=== PATIENT | female | born 1965 | race Caucasian/White ===

== ENCOUNTER → 2016-11-26 | Outpatient (CLI) | payer BC ==
[~2016-11-26] MED LIST: /GLIM4TA PO; ASPI325T PO; ASPI81TA7 PO; AUGM875T27 PO; BIOT1CAP2 PO; CALCTAB68 PO; CLAR10CA3 PO; COMBAER6 IN; FLON0.05; FURO40TA2 PO; GLUC500T PO; INSULANT SC; JANU100T PO; LASI40TA PO; MAGN400C PO; METF1000 PO; MULTCAP PO; POTA20TA PO; TYLE325T5 PO; VITAD1000T PO; VITATAB64 PO; ZOCO20TA PO; [UNRECOGNIZED DRUG - CODE] PO; [UNRECOGNIZED DRUG - OTHER] TOP
[2016-11-26 15:53] LABS: ALBUMIN 3.8 GM/DL (3.2-5.2); ALBUMIN/GLOBULIN RATIO 1.23 (1.00-1.93); ALKALINE PHOSPHATASE 93 U/L (45-117); ALT/SGPT 20 U/L (12-78); ANION GAP 9 MEQ/L (8-16); AST/SGOT 12 U/L (15-37); BILIRUBIN,TOTAL 0.5 MG/DL (0.2-1.0); BLOOD UREA NITROGEN 15 MG/DL (7-18); CARBON DIOXIDE LEVEL 28 MEQ/L (21-32); CHLORIDE LEVEL 106 MEQ/L (98-107); FERRITIN 25 NG/ML (8-252); GLOMERULAR FILTRATION RATE > 60.0 (>51); GLUCOSE, FASTING 85 MG/DL (70-105); PERCENT SATURATION 23.3 % (13.2-37.4); POTASSIUM SERUM 4.1 MEQ/L (3.5-5.1); SODIUM LEVEL 143 MEQ/L (136-145); TOTAL IRON BINDING CAPACITY 412 UG/DL (250-450); TOTAL PROTEIN 6.9 GM/DL (6.4-8.2)
== END ==
LOC: M LAB 14:21
PROVIDERS: ATTEND Family Medicine
DX: R73.01 Impaired fasting glucose (principal); E55.9 Vitamin D deficiency, unspecified; Z98.84 Bariatric surgery status

== ENCOUNTER → 2016-12-02 | Outpatient (CLI) | payer BC ==
--- NOTE | 2016-12-02 13:28 | REP ---
AP and frog-leg views right hip 12/02/2016 Indication: Iliotibial band syndrome, right leg The right hip is unremarkable without fracture or dislocation. Visualized portions of the SI joint are intact. There are multiple phleboliths in the right lower pelvis Impression: right hip without fracture or dislocation. No significant degenerative changes Signed by Jojo Moon MD 12/02/2016 01:19 P
--- NOTE | 2016-12-02 13:28 | REP ---
Clinical: Tendonitis. Technique: Internal rotation, external rotation, and Y view of the right shoulder. Findings: Subtle cortical irregularity to the acromioclavicular joint is appreciated. The glenohumeral joint is intact and normal. No evidence for spurring, osteophytosis, joint space narrowing or periarticular calcifications are appreciated. Impression: Essentially age-related degenerative changes primarily involving the acromioclavicular joint. No overt osteoarthritic degenerative changes noted. Signed by Brent Lindsey MD 12/02/2016 01:20 P
--- NOTE | 2016-12-02 13:30 | REP ---
Clinical: Iliotibial band syndrome. Technique: AP and frog lateral views of the proximal femoral metaphysis to distal femur/ knee excluding the hip. Findings: No acute fracture dislocation. No soft tissue abnormalities or calcifications are appreciated. Age-related changes at the knee joint suggested. Impression: Age-related changes. No overt arthritic degenerative changes noted. Signed by Brent Lindsey MD 12/02/2016 01:21 P
== END ==
LOC: M RAD 12:51
PROVIDERS: ATTEND Family Medicine
DX: M76.31 Iliotibial band syndrome, right leg (principal); M75.81 Other shoulder lesions, right shoulder

== ENCOUNTER → 2016-12-20 | Outpatient (REF) | payer BC | LOC: M SFHCPLAZ 16:53 | PROVIDERS: ATTEND Physician Assistant Medical | DX: J02.9 Acute pharyngitis, unspecified (principal) ==

== ENCOUNTER 2017-02-01 00:55 | Emergency (ER) | payer BC ==
[2017-02-01] MEDS ORDERED: ASPIRIN 81 MG CHEW TABLET PO ONE (01:45)
[2017-02-01 01:52] LABS: BASO # 0.1 K/mm3 (0.0-0.2); BASO % 0.9 % (0.0-1.0); EOS # 0.2 K/mm3 (0.0-0.50); EOS % 2.8 % (0.0-3.0); LARGE UNSTAINED CELL # 0.2 K/mm3 (0.0-0.4); LARGE UNSTAINED CELL % 2.7 % (0.0-4.0); LYMPH # 3.4 K/mm3 (1.5-4.5); LYMPH % 47.9 % (24.0-44.0); MEAN CORPUSCULAR HEMOGLOBIN 29.6 pg (27.0-33.0); MEAN CORPUSCULAR HGB CONC 32.4 g/dl (32.0-36.5); MEAN CORPUSCULAR VOLUME 91.1 fl (80.0-96.0); MONO # 0.4 K/mm3 (0.0-0.8); MONO % 4.8 % (0.0-5.0); NEUTROPHILS % 40.9 % (36.0-66.0); PLATELET COUNT, AUTOMATED 270 k/mm3 (150-450); WHITE BLOOD COUNT 7.2 K/mm3 (4.0-10.0)
[2017-02-01] MEDS: NITROGLYCERIN 0.4 MG SUBL TABLET SL PRN ×2 (01:55→02:08)
[2017-02-01 02:08] VITALS: BP 114/60
[2017-02-01 02:08] LABS: ANION GAP 10 MEQ/L (8-16); BLOOD UREA NITROGEN 15 MG/DL (7-18); CALCIUM LEVEL 8.9 MG/DL (8.5-10.1); CARBON DIOXIDE LEVEL 25 MEQ/L (21-32); CHLORIDE LEVEL 109 MEQ/L (98-107); CREATININE FOR GFR 0.54 MG/DL (0.55-1.02); FREE T4 1.02 NG/DL (0.76-1.46); GLOMERULAR FILTRATION RATE > 60.0 (>51); GLUCOSE, FASTING 118 MG/DL (70-105); POTASSIUM SERUM 3.7 MEQ/L (3.5-5.1); SODIUM LEVEL 144 MEQ/L (136-145)
[2017-02-01 03:29] LABS: MAGNESIUM LEVEL 2.2 MG/DL (1.8-2.4)
[2017-02-01] MEDS ORDERED: ONDANSETRON 4MG/2ML VIAL (J2405) IV ONE (03:45)
[2017-02-01] MEDS ORDERED: MORPHINE 4 MG/ML 1ML SYRINGE IV ONE (03:45)
[2017-02-01] MEDS ORDERED: ISOVUE-370 76% 100ML VIAL (Q9967) As Ordered ONE (04:01)
--- NOTE | 2017-02-01 04:50 | REPUSA ---
History: Pain. Comparison: No prior CTA of the chest available Technique: A CT-pulmonary angiogram was performed. A dose of intravenous contrast was administered. A xial images were displayed, as were sagittal and coronal reconstructions. A 3-D model was also render ed. Findings: No CT evidence of pulmonary embolism is identified. Bilateral basilar atelectatic pulmonary changes. There is no evidence of thoracic aortic aneurysm or dissection. No air space consolidation is identified in the lungs. There is no evidence of pulmonary edema. No pa thologically enlarged hilar or mediastinal lymph nodes are identified. No significant pleural or nicholas cardial fluid collection is seen. There is no evidence of pneumothorax. Impression: No evidence of pulmonary embolism is identified. Bilateral basilar atelectatic pulmonary changes.
[2017-02-01 06:24] VITALS: BP 108/70
--- NOTE | 2017-02-01 08:42 | REP ---
REASON: Chest pain. COMPARISON: 03/02/2015 FINDINGS: The technique utilized in obtaining the radiograph has magnified the cardiac silhouette and accentuated the interstitial markings. The superior mediastinal structures are midline. The cardiac silhouette is unremarkable in size, shape, and position. The diaphragmatic surfaces of the lungs are regular, and the costophrenic angles are clear. The pulmonary mccarthy are clear. The imaged osseous structures are intact. IMPRESSION: There is no acute cardiopulmonary disease. Signed by Mukul Keene DO 02/01/2017 10:05 A
--- NOTE | 2017-02-01 09:13 | ECGEPIP ---
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
--- NOTE | 2017-02-01 09:13 | ECGEPIP ---
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
--- NOTE | 2017-02-01 09:15 | ECGEPIP ---
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
== END 2017-02-01 06:52 | disposition home or self-care (01) ==
LOC: M ED 02:59
DX: R07.89 Other chest pain (principal); R06.02 Shortness of breath; Z82.49 Family history of ischemic heart disease and other diseases of the circulatory system; I45.19 Other right bundle-branch block; Z79.899 Other long term (current) drug therapy; Z87.891 Personal history of nicotine dependence
CPT/HCPCS: 71010; 71275; 80048; 82550; 82553; 83735; 84439; 84443; 85025; 85379; 87804; 93005; 93041; 94760; 96374; 96375; 99285; J2405; Q9967

== ENCOUNTER → 2017-04-29 | Outpatient (REF) | payer BC ==
[2017-04-29 12:46] LABS: FREE T4 1.09 NG/DL (0.76-1.46)
== END ==
LOC: M SFHCPLAZ 07:44
PROVIDERS: ATTEND Family Medicine
DX: E78.2 Mixed hyperlipidemia (principal); R73.01 Impaired fasting glucose; E55.9 Vitamin D deficiency, unspecified

== ENCOUNTER → 2017-05-12 | Outpatient (CLI) | payer BC ==
[2017-05-12 17:30] LABS: ANION GAP 9 MEQ/L (8-16); BLOOD UREA NITROGEN 10 MG/DL (7-18); CALCIUM LEVEL 9.4 MG/DL (8.5-10.1); CARBON DIOXIDE LEVEL 22 MEQ/L (21-32); CHLORIDE LEVEL 108 MEQ/L (98-107); CREATININE FOR GFR 0.56 MG/DL (0.55-1.02); GLOMERULAR FILTRATION RATE > 60.0 (>51); GLUCOSE, FASTING 106 MG/DL (70-105); POTASSIUM SERUM 3.2 MEQ/L (3.5-5.1); SODIUM LEVEL 139 MEQ/L (136-145)
[2017-05-12 18:18] LABS: BASO # 0.1 K/mm3 (0.0-0.2); BASO % 0.9 % (0.0-1.0); EOS # 0.2 K/mm3 (0.0-0.50); EOS % 3.1 % (0.0-3.0); LARGE UNSTAINED CELL # 0.3 K/mm3 (0.0-0.4); LARGE UNSTAINED CELL % 3.2 % (0.0-4.0); LYMPH # 2.1 K/mm3 (1.5-4.5); LYMPH % 26.8 % (24.0-44.0); MEAN CORPUSCULAR HGB CONC 34.1 g/dl (32.0-36.5); MEAN CORPUSCULAR VOLUME 90.9 fl (80.0-96.0); MONO # 0.6 K/mm3 (0.0-0.8); MONO % 7.3 % (0.0-5.0); NEUTROPHILS # 4.6 K/mm3 (1.8-7.7); NEUTROPHILS % 58.7 % (36.0-66.0); PLATELET COUNT, AUTOMATED 276 k/mm3 (150-450); RED CELL DISTRIBUTION WIDTH 12.2 % (11.5-14.5); WHITE BLOOD COUNT 7.8 K/mm3 (4.0-10.0)
== END ==
LOC: M LAB 16:29
PROVIDERS: ATTEND Physician Assistant Medical
DX: A09 Infectious gastroenteritis and colitis, unspecified (principal)

== ENCOUNTER → 2017-07-17 | Outpatient (CLI) | payer BC ==
[~2017-07-17] MED LIST changes: +BIOT50004 PO; +CALCTAB29 PO; +COMBAER6 INH; +DIGO0.25 PO; +FISH1000 PO; +MAGN400T5 PO; +MILKSUS PO; +MULT1TAB10 PO; +TIZA4CAP3 PO; +VITA500T53 PO; +XARE10TA PO; +ZOFR20TA PO; +natural tears OU
--- NOTE | 2017-07-22 18:50 | SLEEPCENT ---
DATE OF PROCEDURE: 07/17/2017 ORDERED BY: Larisa Post Nocturnal polysomnography was performed due to concern for the obstructive sleep apnea syndrome in this patient with a history of excessive somnolence nonrestorative sleep. 7 hours and 54 minutes of data were reviewed. There were 352 minutes of sleep identified. Sleep latency was prolonged at 60.5 minutes. Rapid eye movement (REM) latency was short at 64.5 minutes. Sleep architecture showed fragmentation. Progression was maintained. There were three good REM periods appreciated. Overall sleep efficiency was 75.7%. Patient's EKG showed an underlying sinus rhythm with PACs and episodes of irregularity suggesting intermittent atrial fibrillation. There was an episode during REM sleep which appeared to be flutter. Average heart rate of 60 beats per minute. Patients EEG showed reasonably normal wave forms for wake and sleep. There were 199 respiratory events identified of 10 seconds in duration or greater for an apnea-hypopnea index of 33.9. The events were primarily obstructive, not exclusive to sleep stage or body posture. Arousals from respiratory events occurred 16.5 times per hour. Oxygen desaturations were seen in the low 70's with some activity in the limb leads but arousals from limb events were only 4.3 times per hour and remaining measures of sleep physiology were normal. IMPRESSION: 1. Severe obstructive sleep apnea syndrome (G47.33). Apnea-hypopnea index 33.9. 2. Supraventricular dysrhythmia (atrial fibrillation possibly flutter). RECOMMENDATIONS: Patient should be encouraged to undergo formal sleep evaluation and in laboratory pressure titration. In the interim, alcohol and sedative avoidance should be practiced, and caution exercised during the operation of motor vehicles.
== END ==
LOC: M SLEEP 19:47
PROVIDERS: ATTEND Nurse Practitioner Adult Health
DX: G47.33 Obstructive sleep apnea (adult) (pediatric) (principal); I48.91 Unspecified atrial fibrillation

== ENCOUNTER → 2017-08-14 | Outpatient (CLI) | payer BC ==
--- NOTE | 2017-08-21 09:36 | SLEEPCENT ---
DATE OF PROCEDURE: 08/14/2017 REQUESTING PROVIDER: Larisa Post NP INTERPRETATION: Nocturnal polysomnography was performed for the titration of pressure therapy in this patient with obstructive sleep apnea syndrome, apnea-hypopnea index of 33. For testing, a Respironics Estela View full face mask of small size was used, 4 cm of water pressure were applied to the circuit and the lights were extinguished. 8 hours and 7 minutes of data were reviewed. There were 344 minutes of sleep identified. Sleep latency was mildly prolonged at 65 minutes. Rapid eye movement (REM) latency was prolonged at 162 minutes. Sleep architecture improved with optimal application of pressure therapy. Overall sleep efficiency was 72%. The patient's electrocardiogram (EKG) showed a sinus rhythm with an average heart rate of 44 beats per minute. Rate variability was seen surrounding respiratory events. Rate ranged 36 to 70. Electroencephalogram (EEG) showed fairly normal waveforms for awake and sleep. Respiratory events were found best palliated with a CPAP to a pressure of +10. CPAP tolerance was good. Some limb activity was noted, more so than on the diagnostic night. Limb movement arousal index was 14.6. IMPRESSION: 1. Obstructive sleep apnea syndrome (G47.33). RECOMMENDATIONS: Nightly use of pressure therapy at 10 cm of water.
== END ==
LOC: M SLEEP 19:33
PROVIDERS: ATTEND Nurse Practitioner Adult Health
DX: G47.33 Obstructive sleep apnea (adult) (pediatric) (principal)

== ENCOUNTER → 2017-08-20 | Outpatient (CLI) | payer BC ==
[2017-08-20 10:55] LABS: BASO % 0.4 % (0.0-1.0); EOS % 0.1 % (0.0-3.0); IMMATURE GRANULOCYTE % 0.3 % (0-0); LYMPH # 2.1 10^3/uL (1.5-4.5); LYMPH % 19.8 % (24.0-44.0); MEAN CORPUSCULAR HEMOGLOBIN 28.9 pg (27.0-33.0); MEAN CORPUSCULAR HGB CONC 32.1 g/dl (32.0-36.5); MONO # 0.5 10^3/uL (0.0-0.8); MONO % 4.4 % (0.0-5.0); PLATELET COUNT, AUTOMATED 306 10^3/uL (150-450); RED CELL DISTRIBUTION WIDTH 12.4 % (11.5-14.5); WHITE BLOOD COUNT 10.7 10^3/uL (4.0-10.0)
[2017-08-20 11:28] LABS: ALBUMIN 3.7 GM/DL (3.2-5.2); ALBUMIN/GLOBULIN RATIO 1.03 (1.00-1.93); ALKALINE PHOSPHATASE 114 U/L (45-117); ALT/SGPT 28 U/L (12-78); ANION GAP 7 MEQ/L (8-16); AST/SGOT 8 U/L (15-37); BILIRUBIN,TOTAL 0.4 MG/DL (0.2-1.0); BLOOD UREA NITROGEN 10 MG/DL (7-18); CALCIUM LEVEL 9.6 MG/DL (8.5-10.1); CARBON DIOXIDE LEVEL 26 MEQ/L (21-32); CHLORIDE LEVEL 105 MEQ/L (98-107); CREATININE FOR GFR 0.55 MG/DL (0.55-1.02); FERRITIN 30 NG/ML (8-252); GLOMERULAR FILTRATION RATE > 60.0 (>51); GLUCOSE, FASTING 179 MG/DL (70-105); MAGNESIUM LEVEL 2.3 MG/DL (1.8-2.4); PHOSPHORUS LEVEL 3.3 MG/DL (2.5-4.9); POTASSIUM SERUM 4.3 MEQ/L (3.5-5.1); SODIUM LEVEL 138 MEQ/L (136-145); TOTAL PROTEIN 7.3 GM/DL (6.4-8.2)
[2017-08-20 11:30] LABS: VITAMIN B12 LEVEL 901 PG/ML (247-911)
[2017-08-22 10:38] LABS: PRETREATED FOLATE FOR RBCFOL 11.6 NG/ML
== END ==
LOC: M LAB 10:06
PROVIDERS: ATTEND Surgery
DX: K91.2 Postsurgical malabsorption, not elsewhere classified (principal)

== ENCOUNTER 2017-08-22 09:51 | Outpatient (CLI) | payer BC ==
[~2017-08-22] VITALS: Ht 154.9 cm; Wt 76.2 kg
[2017-08-22] MEDS ORDERED: NS 1,000 ML IV ONE (10:00)
[2017-08-22] MEDS ORDERED: PROPOFOL 200 MG/20 ML VIAL As Ordered ONE ×2 (12:22→12:32)
--- NOTE | 2017-08-22 12:47 | ROOR ---
Patient Name: Cordelia Pino Procedure Date: 08/22/2017 12:18 PM Date of : 1965 Age: 52 Room: [facility] Gender: Female Note Status: Finalized Procedure: Colonoscopy Indications: High risk colon cancer surveillance: Personal history of adenoma with high grade dysplasia, Last colonoscopy: June 2016 Providers: Gigi MIJARES MD Referring MD: Chaz Ruiz MD Requesting Provider: Medicines: Monitored Anesthesia Care Complications: No immediate complications. Procedure: Pre-Anesthesia Assessment: - The heart rate, respiratory rate, oxygen saturations, blood pressure, adequacy of pulmonary ventilation, and response to care were monitored throughout the procedure. The Colonoscope was introduced through the anus and advanced to the cecum, identified by appendiceal orifice and ileocecal valve. The colonoscopy was performed without difficulty. The patient tolerated the procedure well. The quality of the bowel preparation was good. Findings: The perianal and digital rectal examinations were normal. A 5 mm polyp was found in the distal ascending colon. The polyp was sessile. The polyp was removed with a cold snare. Resection and retrieval were complete. Area was tattooed with an injection of Whitley ink. The exam was otherwise without abnormality on direct and retroflexion views. Impression: - One 5 mm polyp in the distal ascending colon, removed with a cold snare. Resected and retrieved. Tattooed. - The examination was otherwise normal on direct and retroflexion views. Recommendation: - Repeat colonoscopy date to be determined after pending pathology results are reviewed. - Telephone endoscopist for pathology results in 2 weeks. Gigi Mijares MD Gigi MIJARES MD 08/22/2017 12:47:27 PM This report has been signed electronically. Number of Addenda: 0 Note Initiated On: 08/22/2017 12:18 PM Estimated Blood Loss: Estimated blood loss: none.
[2017-08-22 13:17] VITALS: BP 117/65
== END 2017-08-22 13:39 | disposition home or self-care (01) ==
LOC: M OPP 09:51
PROVIDERS: ATTEND Internal Medicine Gastroenterology
DX: Z12.11 Encounter for screening for malignant neoplasm of colon (principal); Z86.010 Personal history of colon polyps; D12.2 Benign neoplasm of ascending colon; R00.8 Other abnormalities of heart beat; R00.2 Palpitations; R07.2 Precordial pain; I34.0 Nonrheumatic mitral (valve) insufficiency; I48.3 Typical atrial flutter; I51.7 Cardiomegaly; J44.9 Chronic obstructive pulmonary disease, unspecified; E11.9 Type 2 diabetes mellitus without complications; R55 Syncope and collapse; G47.8 Other sleep disorders; G47.30 Sleep apnea, unspecified; R06.83 Snoring; Z98.84 Bariatric surgery status; Z87.891 Personal history of nicotine dependence; Z79.899 Other long term (current) drug therapy; Z80.7 Family history of other malignant neoplasms of lymphoid, hematopoietic and related tissues

== ENCOUNTER → 2017-12-23 | Outpatient (REF) | payer BC ==
[2017-12-23 12:33] LABS: AMORPHOUS SEDIMENT SMALL (NEGATIVE); APPEARANCE, URINE CLEAR (CLEAR); BACTERIA, URINE AUTO NEGATIVE (NEGATIVE); BILIRUBIN, URINE AUTO NEGATIVE (NEGATIVE); BLOOD, URINE BLOOD NEGATIVE (NEGATIVE); COLOR, URINE YELLOW (YELLOW); GLUCOSE, URINE (UA) AUTO 1+ mg/dL (NEGATIVE); KETONE, URINE AUTO NEGATIVE (NEGATIVE); LEUKOCYTE ESTERASE, URINE AUTO NEGATIVE (NEGATIVE); MUCUS, URINE SMALL (NEGATIVE); NITRITE, URINE AUTO NEGATIVE (NEGATIVE); PROTEIN, URINE AUTO NEGATIVE (NEGATIVE); RBC, URINE AUTO 0 /HPF (0-3); SPECIFIC GRAVITY URINE AUTO 1.027 (1.002-1.035); SQUAMOUS EPITHELIAL CELL UR AU 0 /HPF (0-6); WBC, URINE AUTO 2 /HPF (0-3)
[2017-12-23 12:47] LABS: C REACTIVE PROTEIN QUANTITATIV < 0.30 MG/DL (0.00-0.30); CHOLESTEROL LEVEL 158 MG/DL (<200); CHOLESTEROL RISK RATIO 3.038 (<5); CPK CREATINE PHOSPHOKINASE 63 U/L (26-192); FERRITIN 11 NG/ML (8-252); FREE T4 1.04 NG/DL (0.76-1.46); HDL CHOLESTEROL 52 MG/DL (>40); IRON (FE) 59 UG/DL (50-170); LDL CHOLESTEROL 82.4 MG/DL (<100); NON-HDL-C 106 MG/DL; PERCENT SATURATION 14.7 % (13.2-45.0); TOTAL IRON BINDING CAPACITY 401 UG/DL (250-450); TRIGLYCERIDES LEVEL 118 MG/DL (<150)
[2017-12-23 12:58] LABS: ESTIMATED AVERAGE GLUCOSE 169 MG/DL (60-110); HEMOGLOBIN A1c 7.5 %
[2017-12-23 13:22] LABS: MALB URINE SIEMENS 39.4 MG/L; MAU/CREAT RATIO 22.6 MCG/MG (0.0-30.0)
== END ==
LOC: M SFHCPLAZ 08:24
DX: E11.8 Type 2 diabetes mellitus with unspecified complications (principal); Z98.84 Bariatric surgery status

== ENCOUNTER → 2018-04-23 | Outpatient (REF) | payer BC ==
[2018-04-23 15:08] LABS: BASO # 0.1 10^3/uL (0.0-0.2); EOS # 0.1 10^3/uL (0.0-0.50); EOS % 2.1 % (0.0-3.0); HEMATOCRIT 36.8 % (36.0-47.0); HEMOGLOBIN 11.6 g/dl (12.0-15.5); IMMATURE GRANULOCYTE % 0.2 % (0-3.0); LYMPH # 2.4 10^3/uL (1.5-4.5); LYMPH % 45.9 % (24.0-44.0); MEAN CORPUSCULAR HEMOGLOBIN 28.7 pg (27.0-33.0); MEAN CORPUSCULAR HGB CONC 31.5 g/dl (32.0-36.5); MEAN CORPUSCULAR VOLUME 91.1 fl (80.0-96.0); MONO # 0.4 10^3/uL (0.0-0.8); MONO % 6.8 % (0.0-5.0); NEUTROPHILS # 2.3 10^3/uL (1.8-7.7); PLATELET COUNT, AUTOMATED 241 10^3/uL (150-450); RED BLOOD COUNT 4.04 10^6/uL (4.00-5.40); RED CELL DISTRIBUTION WIDTH 13.7 % (11.5-14.5); RETIC HEMOGLOBIN EQUIVALENT 35.2 pg (24-36); RETICULOCYTE # 42.4 10^9/L (17-77); RETICULOCYTE % 1.1 % (0.5-1.5); WHITE BLOOD COUNT 5.1 10^3/uL (4.0-10.0)
[2018-04-23 15:30] LABS: ALBUMIN 3.6 GM/DL (3.2-5.2); ALBUMIN/GLOBULIN RATIO 1.13 (1.00-1.93); ALKALINE PHOSPHATASE 93 U/L (45-117); ALT/SGPT 23 U/L (12-78); ANION GAP 6 MEQ/L (8-16); AST/SGOT 14 U/L (7-37); BILIRUBIN,TOTAL 0.6 MG/DL (0.2-1.0); BLOOD UREA NITROGEN 19 MG/DL (7-18); CARBON DIOXIDE LEVEL 29 MEQ/L (21-32); CHLORIDE LEVEL 109 MEQ/L (98-107); GLOMERULAR FILTRATION RATE > 60.0 (>51); GLUCOSE, FASTING 98 MG/DL (70-100); POTASSIUM SERUM 3.8 MEQ/L (3.5-5.1); SODIUM LEVEL 144 MEQ/L (136-145); TOTAL PROTEIN 6.8 GM/DL (6.4-8.2)
[2018-04-23 15:35] LABS: TOTAL 25(OH) VITAMIN D 18.4 NG/ML (30.0-100.0)
[2018-04-23 15:39] LABS: ESTIMATED AVERAGE GLUCOSE 148 MG/DL (60-110); HEMOGLOBIN A1c 6.8 %
[2018-04-23 16:16] LABS: PTH INTACT 60.5 PG/ML (18.5-88.0)
[2018-04-23 16:17] LABS: VITAMIN B12 LEVEL 380 PG/ML (247-911)
[2018-04-24 14:17] LABS: INSULIN LEVEL 8.1 uIU/mL (2.6-24.9)
== END ==
LOC: M SFHCPLAZ 08:02
DX: E55.9 Vitamin D deficiency, unspecified (principal); Z98.84 Bariatric surgery status; E11.8 Type 2 diabetes mellitus with unspecified complications
CPT/HCPCS: 83525

== ENCOUNTER → 2018-08-19 | Outpatient (CLI) | payer BC ==
[2018-08-19 11:37] LABS: THYROXINE (T4) 7.2 UG/DL (4.5-12.0)
== END ==
LOC: M LAB 10:01
DX: E07.9 Disorder of thyroid, unspecified (principal)
CPT/HCPCS: 84443

== ENCOUNTER → 2018-08-19 | Outpatient (CLI) | payer BC ==
[2018-08-19 10:52] LABS: BASO # 0.1 10^3/uL (0.0-0.2); BASO % 1.2 % (0.0-1.0); EOS # 0.1 10^3/uL (0.0-0.50); HEMATOCRIT 37.9 % (36.0-47.0); HEMOGLOBIN 12.3 g/dl (12.0-15.5); IMMATURE GRANULOCYTE % 0.2 % (0-3.0); LYMPH # 2.3 10^3/uL (1.5-4.5); LYMPH % 37.4 % (24.0-44.0); MEAN CORPUSCULAR HEMOGLOBIN 29.6 pg (27.0-33.0); MEAN CORPUSCULAR HGB CONC 32.5 g/dl (32.0-36.5); MEAN CORPUSCULAR VOLUME 91.1 fl (80.0-96.0); MONO # 0.4 10^3/uL (0.0-0.8); MONO % 6.1 % (0.0-5.0); NEUTROPHILS # 3.2 10^3/uL (1.8-7.7); NEUTROPHILS % 53.1 % (36.0-66.0); PLATELET COUNT, AUTOMATED 257 10^3/uL (150-450); RED BLOOD COUNT 4.16 10^6/uL (4.00-5.40); RED CELL DISTRIBUTION WIDTH 12.6 % (11.5-14.5); WHITE BLOOD COUNT 6.1 10^3/uL (4.0-10.0)
[2018-08-19 10:55] LABS: HEMATOCRIT 37.9 % (36.0-47.0)
[2018-08-19 11:43] LABS: ALBUMIN 3.7 GM/DL (3.2-5.2); ALBUMIN/GLOBULIN RATIO 1.12 (1.00-1.93); ALKALINE PHOSPHATASE 108 U/L (45-117); ALT/SGPT 24 U/L (12-78); ANION GAP 9 MEQ/L (8-16); AST/SGOT 10 U/L (7-37); BILIRUBIN,TOTAL 0.4 MG/DL (0.2-1.0); BLOOD UREA NITROGEN 10 MG/DL (7-18); CALCIUM LEVEL 9.6 MG/DL (8.5-10.1); CARBON DIOXIDE LEVEL 28 MEQ/L (21-32); CHLORIDE LEVEL 106 MEQ/L (98-107); CREATININE FOR GFR 0.58 MG/DL (0.55-1.30); FERRITIN 10 NG/ML (8-252); GLOMERULAR FILTRATION RATE > 60.0 (>51); GLUCOSE, FASTING 109 MG/DL (70-100); IRON (FE) 61 UG/DL (50-170); MAGNESIUM LEVEL 2.2 MG/DL (1.8-2.4); PHOSPHORUS LEVEL 3.6 MG/DL (2.5-4.9); POTASSIUM SERUM 4.6 MEQ/L (3.5-5.1); SODIUM LEVEL 143 MEQ/L (136-145); TOTAL IRON BINDING CAPACITY 435 UG/DL (250-450)
[2018-08-19 12:49] LABS: ESTIMATED AVERAGE GLUCOSE 128 MG/DL (60-110); HEMOGLOBIN A1c 6.1 %
[2018-08-19 12:50] LABS: TOTAL 25(OH) VITAMIN D 39.9 NG/ML (30.0-100.0)
[2018-08-21 11:05] LABS: PRETREATED FOLATE FOR RBCFOL 9.6 NG/ML; RBC FOLATE 531.9 NG/ML (280-791)
== END ==
LOC: M LAB 10:05
DX: K91.2 Postsurgical malabsorption, not elsewhere classified (principal); Z98.84 Bariatric surgery status; E55.9 Vitamin D deficiency, unspecified
CPT/HCPCS: 83550

== ENCOUNTER → 2018-08-24 | Outpatient (REF) | payer BC ==
[2018-08-24 12:39] LABS: RETIC HEMOGLOBIN EQUIVALENT 34.3 pg (24-36); RETICULOCYTE # 55.2 10^9/L (17-77); RETICULOCYTE % 1.4 % (0.5-1.5)
[2018-08-24 13:03] LABS: C REACTIVE PROTEIN QUANTITATIV < 0.30 MG/DL (0.00-0.30); CHOLESTEROL LEVEL 179 MG/DL (<200); CHOLESTEROL RISK RATIO 3.808 (<5); CPK CREATINE PHOSPHOKINASE 53 U/L (26-192); HDL CHOLESTEROL 47 MG/DL (>40); LDL CHOLESTEROL 112 MG/DL (<100); NON-HDL-C 132 MG/DL; TRIGLYCERIDES LEVEL 100 MG/DL (<150)
== END ==
LOC: M SFHCPLAZ 08:25
DX: E78.2 Mixed hyperlipidemia (principal); E55.9 Vitamin D deficiency, unspecified; E53.8 Deficiency of other specified B group vitamins
CPT/HCPCS: 82550

== ENCOUNTER 2018-09-27 15:32 | Emergency (ER) | payer BC ==
[2018-09-27 16:16] LABS: BASO # 0.1 10^3/uL (0.0-0.2); BASO % 0.6 % (0.0-1.0); EOS # 0.1 10^3/uL (0.0-0.50); EOS % 1.5 % (0.0-3.0); HEMOGLOBIN 12.5 g/dl (12.0-15.5); IMMATURE GRANULOCYTE % 0.1 % (0-3.0); LYMPH # 2.4 10^3/uL (1.5-4.5); LYMPH % 30.7 % (24.0-44.0); MEAN CORPUSCULAR HEMOGLOBIN 29.2 pg (27.0-33.0); MEAN CORPUSCULAR HGB CONC 32.1 g/dl (32.0-36.5); MEAN CORPUSCULAR VOLUME 91.1 fl (80.0-96.0); MONO # 0.5 10^3/uL (0.0-0.8); NEUTROPHILS # 4.8 10^3/uL (1.8-7.7); NEUTROPHILS % 61.1 % (36.0-66.0); PLATELET COUNT, AUTOMATED 265 10^3/uL (150-450); RED BLOOD COUNT 4.28 10^6/uL (4.00-5.40); RED CELL DISTRIBUTION WIDTH 12.7 % (11.5-14.5); WHITE BLOOD COUNT 7.8 10^3/uL (4.0-10.0)
[2018-09-27 16:26] LABS: INR 0.98; PROTHROMBIN TIME 13.1 SECONDS (12.1-14.4)
[2018-09-27 16:34] LABS: PARTIAL THROMBOPLASTIN TIME 28.9 SECONDS (25.4-37.6)
[2018-09-27 16:44] LABS: ALBUMIN 3.8 GM/DL (3.2-5.2); ALBUMIN/GLOBULIN RATIO 1.09 (1.00-1.93); ALKALINE PHOSPHATASE 112 U/L (45-117); ALT/SGPT 35 U/L (12-78); ANION GAP 7 MEQ/L (8-16); AST/SGOT 17 U/L (7-37); BILIRUBIN,DIRECT 0.2 MG/DL (0.0-0.2); BILIRUBIN,TOTAL 0.5 MG/DL (0.2-1.0); BLOOD UREA NITROGEN 11 MG/DL (7-18); CALCIUM LEVEL 9.2 MG/DL (8.5-10.1); CARBON DIOXIDE LEVEL 28 MEQ/L (21-32); CHLORIDE LEVEL 107 MEQ/L (98-107); GLOMERULAR FILTRATION RATE > 60.0 (>51); GLUCOSE, FASTING 202 MG/DL (70-100); POTASSIUM SERUM 3.6 MEQ/L (3.5-5.1); SODIUM LEVEL 142 MEQ/L (136-145); TOTAL PROTEIN 7.3 GM/DL (6.4-8.2)
[2018-09-27] MEDS: MORPHINE 4 MG/ML 1ML VIAL/SYRINGE (J2270) IV (16:45)
[2018-09-27] MEDS: ONDANSETRON 4MG/2ML VIAL (J2405) IV (16:45)
[2018-09-27] MEDS: NS 1,000 ML IV (16:47)
[2018-09-27 18:11] LABS: KETONE, URINE AUTO RFX NEGATIVE (NEGATIVE); MUCUS, URINE RFX SMALL (NEGATIVE); NITRITE, URINE AUTO RFX NEGATIVE (NEGATIVE); RBC, URINE AUTO RFX TNTC /HPF (0-3); SPECIFIC GRAVITY UR AUTO RFX 1.018 (1.002-1.035); SQUAM EPITHELIAL CELL UR AURFX 0 /HPF (0-6)
[2018-09-27 18:16] LABS: LEUKOCYTE ESTERASE UR AUTO RFX 1+ (NEGATIVE); WBC, URINE AUTO RFX 61 /HPF (0-3)
== END 2018-09-27 19:57 | disposition home or self-care (01) ==
LOC: M ED 15:32
DX: N20.1 Calculus of ureter (principal); R31.9 Hematuria, unspecified; D68.32 Hemorrhagic disorder due to extrinsic circulating anticoagulants; I10 Essential (primary) hypertension; J44.9 Chronic obstructive pulmonary disease, unspecified; Z98.84 Bariatric surgery status; Z87.891 Personal history of nicotine dependence; Z79.899 Other long term (current) drug therapy; Z79.01 Long term (current) use of anticoagulants
CPT/HCPCS: J2270

== ENCOUNTER → 2018-09-29 | Outpatient (CLI) | payer BC ==
[2018-09-29 18:45] LABS: IONIZED CALCIUM 4.8 MG/DL (4.5-5.3)
[2018-09-29 19:08] LABS: URIC ACID 5.1 MG/DL (2.6-6.0)
== END ==
LOC: M SMT 14:10
DX: N20.0 Calculus of kidney (principal); R31.29 Other microscopic hematuria
CPT/HCPCS: 84550

== ENCOUNTER → 2018-09-29 | Outpatient (REF) | payer BC | LOC: M SMT 17:29 | DX: R31.0 Gross hematuria (principal) | CPT/HCPCS: 87086 ==

== ENCOUNTER → 2018-09-30 | Outpatient (CLI) | payer BC | LOC: M RAD 06:31 | DX: E11.8 Type 2 diabetes mellitus with unspecified complications (principal); N13.30 Unspecified hydronephrosis | CPT/HCPCS: 76775 ==

== ENCOUNTER → 2018-10-09 | Outpatient (CLI) | payer BC ==
[~2018-10-09] MED LIST changes: -/GLIM4TA PO; -ASPI325T PO; -ASPI81TA7 PO; -AUGM875T27 PO; -BIOT1CAP2 PO; -BIOT50004 PO; -CALCTAB29 PO; -CALCTAB68 PO; -CLAR10CA3 PO; -COMBAER6 IN; -COMBAER6 INH; -DIGO0.25 PO; -FISH1000 PO; -FLON0.05; -FURO40TA2 PO; -GLUC500T PO; -INSULANT SC; +ISOVUE-370 76% 100ML VIAL (Q9967) As Ordered; -JANU100T PO; -LASI40TA PO; -MAGN400C PO; -MAGN400T5 PO; -METF1000 PO; -MILKSUS PO; -MULT1TAB10 PO; -MULTCAP PO; -POTA20TA PO; -TIZA4CAP3 PO; -TYLE325T5 PO; -VITA500T53 PO; -VITAD1000T PO; -VITATAB64 PO; -XARE10TA PO; -ZOCO20TA PO; -ZOFR20TA PO; -[UNRECOGNIZED DRUG - CODE] PO; -[UNRECOGNIZED DRUG - OTHER] TOP; -natural tears OU
== END ==
LOC: M RAD 10:53
DX: R31.0 Gross hematuria (principal); N20.0 Calculus of kidney
CPT/HCPCS: Q9967

== ENCOUNTER → 2019-01-15 | Outpatient (REF) | payer BC ==
[~2019-01-15] MED LIST changes: +/GLIM4TA PO; +ASPI325T PO; +ASPI81TA7 PO; +AUGM875T27 PO; +BIOT1CAP2 PO; +BIOT50004 PO; +CALCTAB29 PO; +CALCTAB68 PO; +CLAR10CA3 PO; +COMBAER6 IN; +COMBAER6 INH; +DIGO0.25 PO; +FISH1000 PO; +FLON0.05; +FURO40TA2 PO; +GLUC500T PO; +INSULANT SC; -ISOVUE-370 76% 100ML VIAL (Q9967) As Ordered; +JANU100T PO; +LASI40TA PO; +MAGN400C PO; +MAGN400T5 PO; +METF1000 PO; +MILK120011 PO; +MULT1TAB10 PO; +MULTCAP PO; +NORCOTAB PO; +POTA20TA PO; +TIZA4CAP PO; +TYLE325T5 PO; +VITA500T53 PO; +VITAD1000T PO; +VITATAB64 PO; +XARE10TA PO; +ZOCO20TA PO; +ZOFR4TAB14 PO; +ZOFR4TAB16 PO; +[UNRECOGNIZED DRUG - CODE] PO; +[UNRECOGNIZED DRUG - OTHER] TOP; +natural tears OU
[2019-01-15 12:10] LABS: BASO # 0.1 10^3/uL (0.0-0.2); BASO % 1.1 % (0.0-1.0); EOS # 0.1 10^3/uL (0.0-0.50); EOS % 1.6 % (0.0-3.0); HEMATOCRIT 39.3 % (36.0-47.0); HEMOGLOBIN 12.5 g/dl (12.0-15.5); LYMPH # 2.4 10^3/uL (1.5-4.5); LYMPH % 37.7 % (24.0-44.0); MEAN CORPUSCULAR HEMOGLOBIN 28.3 pg (27.0-33.0); MEAN CORPUSCULAR HGB CONC 31.8 g/dl (32.0-36.5); MEAN CORPUSCULAR VOLUME 89.1 fl (80.0-96.0); MONO # 0.4 10^3/uL (0.0-0.8); MONO % 6.2 % (0.0-5.0); NEUTROPHILS # 3.4 10^3/uL (1.8-7.7); NEUTROPHILS % 53.2 % (36.0-66.0); PLATELET COUNT, AUTOMATED 260 10^3/uL (150-450); RED BLOOD COUNT 4.41 10^6/uL (4.00-5.40); WHITE BLOOD COUNT 6.5 10^3/uL (4.0-10.0)
[2019-01-15 12:43] LABS: ALBUMIN 3.7 GM/DL (3.2-5.2); ALT/SGPT 27 U/L (12-78); BILIRUBIN,TOTAL 0.6 MG/DL (0.2-1.0); BLOOD UREA NITROGEN 8 MG/DL (7-18); C REACTIVE PROTEIN QUANTITATIV < 0.30 MG/DL (0.00-0.30); CALCIUM LEVEL 8.7 MG/DL (8.5-10.1); CARBON DIOXIDE LEVEL 27 MEQ/L (21-32); CHLORIDE LEVEL 108 MEQ/L (98-107); CHOLESTEROL LEVEL 119 MG/DL (<200); CPK CREATINE PHOSPHOKINASE 66 U/L (26-192); CREATININE FOR GFR 0.49 MG/DL (0.55-1.30); GLOMERULAR FILTRATION RATE > 60.0 (>51); GLUCOSE, FASTING 86 MG/DL (70-100); HDL CHOLESTEROL 61 MG/DL (>40); LDL CHOLESTEROL 45 MG/DL (<100); NON-HDL-C 58 MG/DL; POTASSIUM SERUM 3.8 MEQ/L (3.5-5.1); SODIUM LEVEL 142 MEQ/L (136-145); TRIGLYCERIDES LEVEL 66 MG/DL (<150)
[2019-01-15 13:04] LABS: HEMOGLOBIN A1c 7.5 %
[2019-01-15 16:01] LABS: PTH INTACT 73.4 PG/ML (18.5-88.0); TOTAL 25(OH) VITAMIN D 57.3 NG/ML (30.0-100.0)
[2019-01-19 12:24] LABS: ALBUMIN 4.01 GM/DL (3.29-5.55); ALBUMIN % 57.3 % (55.8-66.1); ALPHA-1-GLOBULIN % 4.4 % (2.9-4.9); ALPHA-1-GLOBULINS 0.31 GM/DL (0.17-0.41); ALPHA-2-GLOBULINS 0.83 GM/DL (0.42-0.99); ALPHA-2-GLOBULINS % 11.8 % (7.1-11.8); BETA-1-GLOBULINS 0.53 GM/DL (0.28-0.60); BETA-1-GLOBULINS % 7.5 % (4.7-7.2); BETA-2-GLOBULINS 0.36 GM/DL (0.19-0.55); BETA-2-GLOBULINS % 5.1 % (3.2-6.5); GAMMA GLOBULIN % 13.9 % (11.1-18.8); GAMMA GLOBULINS 0.97 GM/DL (0.65-1.58)
== END ==
LOC: M SFHCPLAZ 10:01
PROVIDERS: ATTEND Family Medicine
DX: E53.8 Deficiency of other specified B group vitamins (principal); E78.2 Mixed hyperlipidemia; E55.9 Vitamin D deficiency, unspecified; E11.8 Type 2 diabetes mellitus with unspecified complications

== ENCOUNTER → 2019-03-02 | Outpatient (REF) | payer BC ==
[~2019-03-02] MED LIST changes: -/GLIM4TA PO; +AMAR1TAB6 PO; +ASPI-1 PO; -ASPI325T PO; +HYDR-3715 PO; -NORCOTAB PO; +VITA500T17 PO; -VITA500T53 PO; +[UNRECOGNIZED DRUG - CODE] TOP; -[UNRECOGNIZED DRUG - OTHER] TOP
[2019-03-02 14:02] LABS: BASO # 0.1 10^3/uL (0.0-0.2); BASO % 1.3 % (0.0-1.0); EOS # 0.1 10^3/uL (0.0-0.50); EOS % 2.2 % (0.0-3.0); HEMATOCRIT 37.8 % (36.0-47.0); HEMOGLOBIN 11.7 g/dl (12.0-15.5); LYMPH # 2.5 10^3/uL (1.5-4.5); LYMPH % 44.3 % (24.0-44.0); MEAN CORPUSCULAR HEMOGLOBIN 28.4 pg (27.0-33.0); MEAN CORPUSCULAR VOLUME 91.7 fl (80.0-96.0); MONO # 0.4 10^3/uL (0.0-0.8); MONO % 7.6 % (0.0-5.0); NEUTROPHILS # 2.5 10^3/uL (1.8-7.7); NEUTROPHILS % 44.4 % (36.0-66.0); PLATELET COUNT, AUTOMATED 233 10^3/uL (150-450); RED BLOOD COUNT 4.12 10^6/uL (4.00-5.40); WHITE BLOOD COUNT 5.5 10^3/uL (4.0-10.0)
[2019-03-02 14:13] LABS: INR 1.12; PROTHROMBIN TIME 14.6 SECONDS (12.1-14.4)
[2019-03-02 14:14] LABS: PARTIAL THROMBOPLASTIN TIME 32.4 SECONDS (25.4-37.6)
[2019-03-02 14:32] LABS: ALBUMIN 3.7 GM/DL (3.2-5.2); ALT/SGPT 25 U/L (12-78); BILIRUBIN,TOTAL 0.6 MG/DL (0.2-1.0); BLOOD UREA NITROGEN 8 MG/DL (7-18); CARBON DIOXIDE LEVEL 30 MEQ/L (21-32); CHLORIDE LEVEL 108 MEQ/L (98-107); CREATININE FOR GFR 0.49 MG/DL (0.55-1.30); GLOMERULAR FILTRATION RATE > 60.0 (>51); GLUCOSE, FASTING 80 MG/DL (70-100); MAGNESIUM LEVEL 2.2 MG/DL (1.8-2.4); SODIUM LEVEL 142 MEQ/L (136-145); TOTAL PROTEIN 6.6 GM/DL (6.4-8.2)
== END ==
LOC: M SFHCPLAZ 11:19
PROVIDERS: ATTEND Family Medicine
DX: Z01.812 Encounter for preprocedural laboratory examination (principal)

== ENCOUNTER → 2019-04-23 | Outpatient (RCR) | payer OTHER | LOC: M PT 03-29 14:43 | PROVIDERS: ATTEND Orthopaedic Surgery | DX: M77.12 Lateral epicondylitis, left elbow (principal) ==

== ENCOUNTER → 2019-06-02 | Outpatient (REF) | payer BC ==
[2019-06-02 10:06] LABS: APPEARANCE, URINE HAZY (CLEAR); BACTERIA, URINE AUTO NEGATIVE (NEGATIVE); BILIRUBIN, URINE AUTO NEGATIVE (NEGATIVE); BLOOD, URINE BLOOD NEGATIVE (NEGATIVE); COLOR, URINE YELLOW (YELLOW); GLUCOSE, URINE (UA) AUTO 2+ mg/dL (NEGATIVE); KETONE, URINE AUTO NEGATIVE (NEGATIVE); LEUKOCYTE ESTERASE, URINE AUTO TRACE (NEGATIVE); MUCUS, URINE SMALL (NEGATIVE); NITRITE, URINE AUTO NEGATIVE (NEGATIVE); PROTEIN, URINE AUTO NEGATIVE (NEGATIVE); RBC, URINE AUTO 4 /HPF (0-3); SPECIFIC GRAVITY URINE AUTO 1.027 (1.002-1.035); SQUAMOUS EPITHELIAL CELL UR AU 0 /HPF (0-6); WBC, URINE AUTO 2 /HPF (0-3)
[2019-06-02 10:08] LABS: BASO # 0.1 10^3/uL (0.0-0.2); BASO % 0.8 % (0.0-1.0); EOS # 0.1 10^3/uL (0.0-0.50); HEMATOCRIT 37.2 % (36.0-47.0); HEMOGLOBIN 11.6 g/dl (12.0-15.5); LYMPH # 2.4 10^3/uL (1.5-4.5); LYMPH % 40.5 % (24.0-44.0); MEAN CORPUSCULAR HEMOGLOBIN 28.6 pg (27.0-33.0); MEAN CORPUSCULAR HGB CONC 31.2 g/dl (32.0-36.5); MEAN CORPUSCULAR VOLUME 91.6 fl (80.0-96.0); MONO # 0.4 10^3/uL (0.0-0.8); MONO % 7.1 % (0.0-5.0); NEUTROPHILS # 2.9 10^3/uL (1.8-7.7); NEUTROPHILS % 49.4 % (36.0-66.0); PLATELET COUNT, AUTOMATED 247 10^3/uL (150-450); RED BLOOD COUNT 4.06 10^6/uL (4.00-5.40); WHITE BLOOD COUNT 5.9 10^3/uL (4.0-10.0)
[2019-06-02 10:26] LABS: HEMOGLOBIN A1c 6.9 %
[2019-06-02 10:28] LABS: ALBUMIN 3.7 GM/DL (3.2-5.2); ALT/SGPT 24 U/L (12-78); BILIRUBIN,TOTAL 0.5 MG/DL (0.2-1.0); BLOOD UREA NITROGEN 10 MG/DL (7-18); CALCIUM LEVEL 9.2 MG/DL (8.5-10.1); CARBON DIOXIDE LEVEL 29 MEQ/L (21-32); CHLORIDE LEVEL 109 MEQ/L (98-107); CREATININE FOR GFR 0.56 MG/DL (0.55-1.30); GLOMERULAR FILTRATION RATE > 60.0 (>51); GLUCOSE, FASTING 105 MG/DL (70-100); POTASSIUM SERUM 4.4 MEQ/L (3.5-5.1); SODIUM LEVEL 143 MEQ/L (136-145); TOTAL PROTEIN 6.8 GM/DL (6.4-8.2)
[2019-06-02 10:36] LABS: PTH INTACT 79.8 PG/ML (18.5-88.0); TOTAL 25(OH) VITAMIN D 50.4 NG/ML (30.0-100.0); VITAMIN B12 LEVEL 1732 PG/ML (247-911)
[2019-06-02 10:40] LABS: MALB URINE SIEMENS 40.1 MG/L
== END ==
LOC: M SFHCPLAZ 08:23
PROVIDERS: ATTEND Family Medicine
DX: E53.8 Deficiency of other specified B group vitamins (principal); E55.9 Vitamin D deficiency, unspecified; E11.8 Type 2 diabetes mellitus with unspecified complications

== ENCOUNTER → 2019-07-07 | Outpatient (CLI) | payer BC ==
--- NOTE | 2019-07-07 15:57 | REPMRS ---
Patient History The patient states she has not had a clinical breast exam in over a year. Family history of colorectal cancer under age 50 in sister. Digital Woman Screen Mammo: July 07, 2019 - Exam #: [id number] Bilateral CC and MLO view(s) were taken. Technologist: Maddy Armstrong, Technologist Prior study comparison: September 06, 2016, digital woman screen mammo performed at [facility]. May 19, 2015, digital woman screen mammo performed at [facility]. May 13, 2014, bilateral digital mammo screening bilat, performed at [facility]. FINDINGS: The breast tissue is heterogeneously dense. This may lower the sensitivity of mammography. There is a stable grouping of calcifications in the left breast medially. There is a moderate amount of heterogeneously dense fibroglandular tissue which is fairly symmetric. There is no interval development of dominant mass, architectural distortion, or grouped microcalcification typical of malignancy. There has been no change in the appearance of the mammogram from the prior studies. 3-D tomosynthesis shows no additional findings. Assessment: BI-RADS/ACR category 2 mammogram. Benign Findings. Recommendation Routine screening mammogram of both breasts in 1 year (for women over age 40). This patient's Lifetime Breast Cancer RIsk is estimated at 5.5 %. This mammogram was interpreted with the aid of an FDA-approved computer-aided dectection system. Electronically Signed By: Gautam Odom MD 07/07/19 [id number]
--- NOTE | 2019-07-12 09:19 | DEXA ---
AP SPINE L1 - L4 1.067 -1.0 -0.2 LT FEMUR TOTAL 0.860 -1.2 -0.5 LT NECK 0.796 -1.7 -0.7 RT FEMUR TOTAL 0.855 -1.2 -0.6 RT NECK 0.879 -1.1 -0.1 TOTAL BODY TOTAL OTHER COMMENTS: There is low bone density of the spine and hips. The density of the spine has decreased 6.2% since the initial exam on 02/11/2005. The spine density has decreased 3.2% since the most recent exam on 05/19/2015. The density of the left hip has decreased 21.9% since the initial exam on 02/11/2005. The density of the left hip has decreased 14.9% since the most recent exam on 05/19/2015. The density of the right hip has decreased 22.1% since the initial exam on 02/11/2005. The density of the right hip has decreased 17.1% since the most recent exam on 05/19/2015. FOLLOW-UP: Recommendation for the next bone density exam: 2 years. MAURILIO
== END ==
LOC: M WHC 10:58
PROVIDERS: ATTEND Family Medicine
DX: Z12.31 Encounter for screening mammogram for malignant neoplasm of breast (principal); M85.80 Other specified disorders of bone density and structure, unspecified site; Z80.0 Family history of malignant neoplasm of digestive organs

== ENCOUNTER → 2019-08-09 | Outpatient (REF) | payer BC ==
[~2019-08-09] MED LIST changes: +ATOR1TAB21 PO; +CALCCAP4 PO; +DICL5SOL TOP; +DIGO0.12 PO; +FLUTISP NARES; +LEVA1TAB2 PO; +MAGN400T2 PO; +METF500T13 PO; +MILKSUS3 PO; +MIRA3350 PO; +MULT-40 PO; +ONDA4TAB6 PO; +TEMO0.0517 TOP; +VITA500054 PO; +XARE20TA PO
[2019-08-09 17:22] LABS: APPEARANCE, URINE HAZY (CLEAR); BACTERIA, URINE AUTO 1+ (NEGATIVE); BILIRUBIN, URINE AUTO NEGATIVE (NEGATIVE); BLOOD, URINE BLOOD 2+ (NEGATIVE); COLOR, URINE STRAW (YELLOW); GLUCOSE, URINE (UA) AUTO NEGATIVE (NEGATIVE); KETONE, URINE AUTO NEGATIVE (NEGATIVE); LEUKOCYTE ESTERASE, URINE AUTO 3+ (NEGATIVE); NITRITE, URINE AUTO NEGATIVE (NEGATIVE); PROTEIN, URINE AUTO NEGATIVE (NEGATIVE); RBC, URINE AUTO 2 /HPF (0-3); SPECIFIC GRAVITY URINE AUTO 1.004 (1.002-1.035); SQUAMOUS EPITHELIAL CELL UR AU 0 /HPF (0-6); UROBILINOGEN, URINE AUTO 0.2 mg/dL (0.0-2.0); WBC, URINE AUTO 19 /HPF (0-3)
== END ==
LOC: M SFHCPLAZ 15:49
PROVIDERS: ATTEND Nurse Practitioner Family
DX: N39.0 Urinary tract infection, site not specified (principal)

== ENCOUNTER 2019-08-11 18:11 | Inpatient (IN) | payer BC ==
[~2019-08-11] VITALS: Ht 160 cm; Wt 75.3 kg
[~2019-08-11 18:11] MED LIST changes: -ATOR1TAB21 PO; -CALCCAP4 PO; -DICL5SOL TOP; -DIGO0.12 PO; -FLUTISP NARES; -LEVA1TAB2 PO; -MAGN400T2 PO; -METF500T13 PO; -MILKSUS3 PO; -MIRA3350 PO; -MULT-40 PO; -ONDA4TAB6 PO; -TEMO0.0517 TOP; -VITA500054 PO; -XARE20TA PO
[2019-08-11] MEDS ORDERED: METF500T13 PO (18:21)
[2019-08-11] MEDS ORDERED: ATOR1TAB21 PO (18:21)
[2019-08-11] MEDS ORDERED: cefTRIAXone SOD 2 GM in D5W MINI-BAG PLUS 50 ML IV ONE (19:15)
[2019-08-11] MEDS ORDERED: ACETAMINOPHEN 500 MG TAB PO ONE (19:15)
[2019-08-11] MEDS ORDERED: NS 1,000 ML IV ONE (19:15)
[2019-08-11 19:42] LABS: BASO % 0.7 % (0.0-1.0); EOS % 0.2 % (0.0-3.0); HEMATOCRIT 38.1 % (36.0-47.0); HEMOGLOBIN 12.3 g/dl (12.0-15.5); LYMPH # 1.4 10^3/uL (1.5-5.0); LYMPH % 25.3 % (24.0-44.0); MEAN CORPUSCULAR HEMOGLOBIN 29.6 pg (27.0-33.0); MEAN CORPUSCULAR HGB CONC 32.3 g/dl (32.0-36.5); MEAN CORPUSCULAR VOLUME 91.6 fl (80.0-96.0); MONO # 0.5 10^3/uL (0.0-0.8); NEUTROPHILS # 3.6 10^3/uL (1.5-8.5); NEUTROPHILS % 64.6 % (36.0-66.0); PLATELET COUNT, AUTOMATED 246 10^3/uL (150-450); RED BLOOD COUNT 4.16 10^6/uL (4.00-5.40); WHITE BLOOD COUNT 5.5 10^3/uL (4.0-10.0)
[2019-08-11] MEDS ORDERED: DIGO0.12 PO (20:07)
[2019-08-11] MEDS ORDERED: MAGN400T2 PO (20:07)
[2019-08-11] MEDS ORDERED: FISH1000 PO (20:07)
[2019-08-11] MEDS ORDERED: CALCCAP4 PO (20:07)
[2019-08-11 20:16] LABS: BLOOD UREA NITROGEN 11 MG/DL (7-18); CALCIUM LEVEL 9.3 MG/DL (8.5-10.1); CARBON DIOXIDE LEVEL 27 MEQ/L (21-32); CHLORIDE LEVEL 106 MEQ/L (98-107); CREATININE FOR GFR 0.68 MG/DL (0.55-1.30); DIGOXIN LEVEL 0.2 NG/ML (0.5-2.0); GLOMERULAR FILTRATION RATE > 60.0 (>51); GLUCOSE, FASTING 118 MG/DL (70-100); POTASSIUM SERUM 3.6 MEQ/L (3.5-5.1); SODIUM LEVEL 141 MEQ/L (136-145)
[2019-08-11] MEDS ORDERED: TEMO0.0517 TOP (20:19)
[2019-08-11] MEDS ORDERED: DICL5SOL TOP (20:19)
[2019-08-11] MEDS ORDERED: MULT-40 PO (20:19)
[2019-08-11] MEDS ORDERED: XARE20TA PO (20:19)
[2019-08-11] MEDS ORDERED: ONDA4TAB6 PO (20:19)
[2019-08-11] MEDS ORDERED: MILKSUS3 PO (20:19)
[2019-08-11] MEDS ORDERED: VITA500054 PO (20:22)
[2019-08-11] MEDS ORDERED: FLUTISP NARES (20:22)
[2019-08-11] MEDS ORDERED: MIRA3350 PO (20:24)
--- NOTE | 2019-08-11 20:41 | REPVR ---
PROCEDURE INFORMATION: Exam: CT Abdomen and Pelvis Without Contrast Exam date and time: 08/11/2019 7:32 PM Clinical history: 54 years old, female; Other: Pyelo; Additional info: Eval R pyelo TECHNIQUE: Imaging protocol: Computed tomography of the abdomen and pelvis without contrast. Radiation optimization: All CT scans at this facility use at least one of these dose optimization techniques: automated exposure control; mA and/or kV adjustment per patient size (includes targeted exams where dose is matched to clinical indication); or iterative reconstruction. COMPARISON: CT ABD PELVIS W/O CONTRAST 09/27/2018 3:53 PM FINDINGS: Lungs: Minimal bibasilar atelectasis or scar. Liver: Normal. No mass. Gallbladder and bile ducts: Normal. No calcified stones. No ductal dilation. Pancreas: Normal. No ductal dilation. Spleen: Normal. No splenomegaly. Adrenals: Normal. No mass. Kidneys and ureters: Nonobstructing bilateral renal calculi. Slight right perinephric induration with mild right hydronephrosis and mild hydroureter with periureteral edema which extends to the right UVJ passing by several phleboliths in the pelvis. No ureteral, UVJ or bladder calculi are seen. There is close passage by a phlebolith which is medial to the quadrilateral plate of the right pelvis that is similar in appearance to a prior study. The right hydronephrosis and perinephric edema is similar to the prior study. There is resolution of the previous right IJ calculus. There is question of slight asymmetric thickening of the right lateral bladder wall compared to the left. Stomach and bowel: Status post gastric bypass with collapse of the bypassed stomach. There is left mid abdominal Ever-en-Y. Density at the cecal tip which may reflect prior appendectomy. The appendix is not seen. Appendix: See Stomach And Bowel Finding. Intraperitoneal space: Unremarkable. No free air. No significant fluid collection. Vasculature: There is mild calcification of the abdominal aorta. Lymph nodes: Unremarkable. No enlarged lymph nodes. Bladder: See Kidneys And Ureters Finding. Reproductive: Status post hysterectomy. Bones/joints: Unremarkable. No acute fracture. Soft tissues: Minimal fat filled umbilical hernia. IMPRESSION: 1. Resolution of right UPJ calculus since 09/27/2018. There is evidence of right obstructive uropathy which persists and now extends to the right UVJ with no ureteral, UVJ or bladder calculus seen. Findings may reflect a recently passed stone. Infection and pyelonephritis is not excluded. There is question of slight wall thickening of the right lateral bladder wall and bladder mass is not excluded. The right obstructive uropathy is increased since 10/09/2018. 2. Status post gastric bypass. 3. Nonobstructing bilateral renal calculi. 4. Status post hysterectomy. Electronically signed by: Beau Elizabeth On 08/11/2019 20:41:03 PM
[2019-08-11] MEDS ORDERED: MORPHINE 2 MG/ML 1ML SYRINGE (J2270) IV ONE (21:15)
[2019-08-12] MEDS ORDERED: ONDANSETRON 4 MG ORAL DISINTEGRATING TAB (Q0162 PER 1MG) PO PRN (00:45)
[2019-08-12] MEDS ORDERED: DEXTROSE 50% 50 ML SYRINGE IV PRN (00:45)
[2019-08-12] MEDS ORDERED: GLUCOSE 4 GM CHEW TABLET PO PRN (00:45)
[2019-08-12] MEDS ORDERED: FLUTICASONE PROP 0.05% NASAL SPRAY 16 GM (FLONASE) NARES PRN (00:45)
[2019-08-12] MEDS ORDERED: GLUCAGON FOR INJ 1 MG VIAL (J1610) SC PRN (00:45)
[2019-08-12 00:50] VITALS: BP 120/67
--- NOTE | 2019-08-12 00:53 | HPEPDOC ---
[facility] Medical History & Physical Date of Admission Aug 11, 2019 Date of Service: Aug 11, 2019 History and Physical CHIEF COMPLAINT: [ABD AND BACK PAIN WITH FEVER ] HISTORY OF PRESENT ILLNESS: This is a 54 yo female with pmhx of DM2 and afib on AC, who presented to the ED for fever, lower abd pain and back pain for the past 3 days. She denied chest pain, sob, nausea or vomiting PAST MEDICAL HISTORY: DM2 afib PAST SURGICAL HISTORY: c section tonsilectomy gastric bypass SOCIAL HISTORY: quick smoking in 2002, denied use of elicit drugs , marijuana or etoh FAMILY HISTORY: mother and father with DM2 father - CAD ALLERGIES: Please see below. HOME MEDICATIONS: Please see below. ROS All 10 points ROS are negative except for what stated in HPI PHYSICAL EXAMINATION: GENERAL: Well-appearing, alert and oriented, in no acute distress. HEENT normocephalic , atraumatic, PERRLA, EOMI, neck supple, no enlarged thyroid, no tenderness , no lymphadenopathy VITAL SIGNS: Afebrile, vital signs stable. CARDIOVASCULAR: Regular rate and rhythm, no murmurs , rubs or gallops , no chest wall tenderness RESP LCTAB , no wheezes, crackles or rhonchi , no fremitus ABDOMEN: + bowel sounds, Soft, suprapubic tenderness, right cva tenderness, no distended , no organomegaly EXTREMITIES: moves extremities voluntarily, no tenderness, or swelling, normal strength NEURO cn 2-12 intact, no foal deficit, AOAx3 Psych- normal mood and affect , good judgement and insight LABORATORY DATA: See below. IMAGING: [1. Resolution of right UPJ calculus since 09/27/2018. There is evidence of right obstructive uropathy which persists and now extends to the right UVJ with no ureteral, UVJ or bladder calculus seen. Findings may reflect a recently passed stone. Infection and pyelonephritis is not excluded. There is question of slight wall thickening of the right lateral bladder wall and bladder mass is not excluded. The right obstructive uropathy is increased since 10/09/2018. 2. Status post gastric bypass. 3. Nonobstructing bilateral renal calculi. 4. Status post hysterectomy. ] MICROBIOLOGY: Please see below. ASSESSMENT and Plan UTI and possible pyelonephritis -c/w ceftriaxone -urine cx on the shows hylton sensitive e coli -f/u urine cx and blood cx DM2 insulin ss tidac and qhs hypoglycemic protocol afib rate controlled c/w digoxin and xeralto dvt ppx full code Vital Signs Vital Signs Date Time Temp Pulse Resp B/P (MAP) Pulse Ox O2 Delivery O2 Flow Rate FiO2 08/11/19 21:45 67 08/11/19 21:31 108/58 (75) 08/11/19 21:30 18 93 Nasal Cannula 2.0 08/11/19 20:30 99.8 Laboratory Data Labs 24H Laboratory Tests 2 08/11/19 19:33: Immature Granulocyte % (Auto) 0.2, White Blood Count 5.5, Red Blood Count 4.16, Hemoglobin 12.3, Hematocrit 38.1, Mean Corpuscular Volume 91.6, Mean Corpuscular Hemoglobin 29.6, Mean Corpuscular Hemoglobin Concent 32.3, Red Cell Distribution Width 13.5, Platelet Count 246, Neutrophils (%) (Auto) 64.6, Lymphocytes (%) (Auto) 25.3, Monocytes (%) (Auto) 9.0H, Eosinophils (%) (Auto) 0.2, Basophils (%) (Auto) 0.7, Neutrophils # (Auto) 3.6, Lymphocytes # (Auto) 1.4L, Monocytes # (Auto) 0.5, Eosinophils # (Auto) 0.0, Basophils # (Auto) 0.0, Nucleated Red Blood Cells % (auto) 0.0, Anion Gap 8, Glomerular Filtration Rate > 60.0, Lactic Acid Level 0.8, Blood Urea Nitrogen 11, Creatinine 0.68, Sodium Level 141, Potassium Level 3.6, Chloride Level 106, Carbon Dioxide Level 27, Calcium Level 9.3, Digoxin Level 0.2L 08/11/19 19:56: Urine Color YELLOW, Urine Appearance CLEAR, Urine pH 8.0, Urine Specific [place] 1.013, Urine Protein 2+H, Urine Glucose (UA) NEGATIVE, Urine Ketones NEGATIVE, Urine Blood 1+H, Urine Nitrite NEGATIVE, Urine Bilirubin NEGATIVE, Urine Urobilinogen 0.2, Urine Leukocyte Esterase 3+H, Urine WBC (Auto) TNTCH, Urine RBC (Auto) 48H, Urine Hyaline Casts (Auto) 0, Urine Bacteria (Auto) 1+H, Urine Squamous Epithelial Cells 0, Urine Mucus (Auto) SMALL, Urine Sperm (Auto) CBC/BMP Laboratory Tests 08/11/19 19:33 Red Blood Count 4.16, Mean Corpuscular Volume 91.6, Mean Corpuscular Hemoglobin 29.6, Mean Corpuscular Hemoglobin Concent 32.3, Red Cell Distribution Width 13.5, Neutrophils (%) (Auto) 64.6, Lymphocytes (%) (Auto) 25.3, Monocytes (%) (Auto) 9.0 H, Eosinophils (%) (Auto) 0.2, Basophils (%) (Auto) 0.7, Neutrophils # (Auto) 3.6, Lymphocytes # (Auto) 1.4 L, Monocytes # (Auto) 0.5, Eosinophils # (Auto) 0.0, Basophils # (Auto) 0.0, Calcium Level 9.3 Microbiology Microbiology 08/11/19 Blood Culture, Received Pending 08/11/19 Blood Culture, Received Pending 08/11/19 Urine Culture, Received Pending Home Medications Scheduled Atorvastatin Calcium (Atorvastatin Calcium) 20 Mg Tablet, 20 MG PO QPM Biotin (Biotin) 5,000 Mcg Cap, 5,000 MCG PO DAILY Calcium Carbonate/Vitamin D3 (Calcium 600 + Vit D 400 Softgl) 1 Each Capsule, 1 CAP PO BID Cholecalciferol (Vitamin D3) (Vitamin D3) 5,000 Unit Capsule, 5,000 UNIT PO DAILY Cyanocobalamin (Vitamin B-12) (Vitamin B-12) 500 Mcg Tab, 500 MCG PO DAILY Digoxin (Digoxin) 125 Mcg Tablet, 125 MCG PO DAILY Loratadine (Claritin) 10 Mg Cap, 10 MG PO DAILY Magnesium Oxide (Magnesium Oxide) 400 Mg Tablet, 400 MG PO DAILY Metformin HCl (Metformin HCl) 500 Mg Tablet, 500 MG PO BID BREAKFAST AND SUPPER Multivitamin (Multivitamins) 1 Each Tablet, 2 TAB PO DAILY [place]-3 Fatty Acids/Fish Oil (Fish Oil 1,000 mg Capsule) 1 Each Capsule, 2,000 MG PO DAILY Polyethylene Glycol 3350 (Miralax) 119 Gm Powder, 17 GM PO DAILY dilute in 8 ounces of water or juice Rivaroxaban (Xarelto) 20 Mg Tablet, 20 MG PO ACS Scheduled PRN Clobetasol Propionate (Temovate) 15 Gm Oint...g., 1 APLCT TOP BID PRN for RASH/ITCHING APPLY TO HANDS Diclofenac Sodium (Diclofenac Sodium) 1.5% 150ML Drops, 40 DROP TOP QID PRN for PAIN APPLIED TO KNEES AND HIPS NEEDED Fluticasone Propionate (Fluticasone Propionate) 16 Gm [place].susp, 2 SPRAY NARES DAILY PRN for CONGESTION Ipratropium/Albuterol Sulfate (Combivent Respimat 20-100 Mcg) 1 Aer Aer, 1 PUFF INH QIDP PRN for WHEEZING Magnesium Hydroxide (Milk of Magnesia) 400 Mg/5 Ml Oral.susp, 2,400 MG PO QHS PRN for CONSTIPATION Ondansetron (Ondansetron Odt) 4 Mg Tab.rapdis, 4 MG PO Q6H PRN for NAUSEA OR VOMITING Allergies Coded Allergies: No Known Allergies (Unverified , 08/11/19) A-FIB/CHADSVASC A-FIB History Current/History of A-Fib/PAF?: Yes Current PO Anticoag Therapy: Yes Age/Risk Factor Scoring CHADSVASC: CHADSVASC Response (Comments) Value Age Risk Factor Age < 65 years old 0 Gender Risk Factor Female 1 Hx of CHF No 0 Hx of HTN No 0 Hx of Stroke/TIA/or VTE No 0 Hx of Diabetes Yes 1 Hx of Vascular Disease No 0 Total 2 Treatment Treatment ordered: Rivaroxaban BERNADINE ALONZO MD Aug 12, 2019 00:53
[2019-08-12] MEDS ORDERED: SLF 3 ML SYR IV PRN (01:15)
[2019-08-12] MEDS: RIVAROXABAN 20 MG TAB (XARELTO) PO SCH ×2 (01:33→17:24)
[2019-08-12] MEDS: ACETAMINOPHEN TAB 650MG DOSE (2X325MG) PO PRN ×3 (01:33→11:53)
[2019-08-12] MEDS: ATORVASTATIN 20 MG TAB PO SCH ×2 (01:33→21:02)
[2019-08-12 04:00] VITALS: BP 104/64
[2019-08-12] MEDS: SLF 3 ML SYR IV SCH ×3 (05:13→21:02)
[2019-08-12 05:51] LABS: HEMATOCRIT 34.9 % (36.0-47.0); MEAN CORPUSCULAR HEMOGLOBIN 29.3 pg (27.0-33.0); MEAN CORPUSCULAR HGB CONC 31.5 g/dl (32.0-36.5); MEAN CORPUSCULAR VOLUME 92.8 fl (80.0-96.0); PLATELET COUNT, AUTOMATED 212 10^3/uL (150-450); RED BLOOD COUNT 3.76 10^6/uL (4.00-5.40)
[2019-08-12 06:19] LABS: BLOOD UREA NITROGEN 12 MG/DL (7-18); CALCIUM LEVEL 8.8 MG/DL (8.5-10.1); CARBON DIOXIDE LEVEL 26 MEQ/L (21-32); CHLORIDE LEVEL 108 MEQ/L (98-107); CREATININE FOR GFR 0.48 MG/DL (0.55-1.30); GLOMERULAR FILTRATION RATE > 60.0 (>51); GLUCOSE, FASTING 106 MG/DL (70-100); MAGNESIUM LEVEL 2.1 MG/DL (1.8-2.4); POTASSIUM SERUM 3.4 MEQ/L (3.5-5.1); SODIUM LEVEL 142 MEQ/L (136-145)
[2019-08-12] MEDS: HumaLOG INSULIN (NovoLOG) PER UNIT SC SCH ×3 (07:30→16:34)
[2019-08-12 07:57] VITALS: BP 108/56
[2019-08-12] MEDS: LORATADINE 10 MG TAB PO SCH (08:37)
[2019-08-12] MEDS: DIGOXIN 0.125 MG TAB PO SCH (08:37)
[2019-08-12] MEDS: DOCUSATE SODIUM 100 MG CAP PO SCH ×2 (08:37→21:02)
[2019-08-12] MEDS: CYANOCOBALAMIN 500 MCG TAB PO SCH (08:37)
[2019-08-12] MEDS: MAGNESIUM OXIDE 400 MG TAB (MAG-OX) PO SCH (08:37)
--- NOTE | 2019-08-12 11:25 | IPNPDOC ---
Subjective Date Seen The patient was seen on 08/12/19. Subjective Chief Complaint/HPI Patient reports continued back pain discomfort, with mild improvement Constitutional: Denies: Chills, Fever Pulmonary: Denies: Cough Cardiovascular: Denies: Chest Pain Gastrointestinal: Reports: Other Symptoms (flank pain ); Denies: Abdominal Pain Objective Physical Examination General Exam: Positive: Alert, Cooperative, No Acute Distress Chest Exam: Positive: Clear to auscultation, Normal air movement Heart Exam: Positive: Bradycardic, Regular Rhythm Abdomen Exam: Positive: Normal bowel sounds, Tenderness, Other (bilateral flank tenderness ) Psych Exam: Positive: Mood NL Assessment /Plan Problems (1) Pyelonephritis Status: Acute Response to Treatment: Stable Problem Text: 08/12/19: Afebrile. WBC 5.0. Day #2 of Ceftriaxone. Urine and BC cultures pending. Patient did have a urine culture collected in the outpatient setting 08/09/19 + for e-coli. Pain control , (2) Obstructive uropathy Status: Acute Response to Treatment: Stable Problem Specific Plan: Consult Specialist Problem Text: 08/12/19: Urology consulted (3) Diabetes mellitus Status: Chronic Response to Treatment: Stable Problem Text: 08/12/19: Sliding scale coverage (4) Paroxysmal atrial fibrillation Status: Chronic Response to Treatment: Stable Problem Text: 08/12/19: On Xarelto and Dig Plan/VTE VTE Prophylaxis Ordered?: Yes (Xarelto ) VS, I&O, 24H, Fishbone Vital Signs/I&O Vital Signs Date Time Temp Pulse Resp B/P (MAP) Pulse Ox O2 Delivery O2 Flow Rate FiO2 08/12/19 08:37 58 08/12/19 07:57 97.5 18 108/56 (73) 94 2.0 08/12/19 00:30 Nasal Cannula I&O- Last 24 Hours up to 6 AM 08/12/19 05:59 Intake Total 1050 ml Output Total 0 ml Balance 1050 ml Laboratory Data 24H LABS Laboratory Tests 2 08/11/19 19:33: Immature Granulocyte % (Auto) 0.2, White Blood Count 5.5, Red Blood Count 4.16, Hemoglobin 12.3, Hematocrit 38.1, Mean Corpuscular Volume 91.6, Mean Corpuscular Hemoglobin 29.6, Mean Corpuscular Hemoglobin Concent 32.3, Red Cell Distribution Width 13.5, Platelet Count 246, Neutrophils (%) (Auto) 64.6, Lymphocytes (%) (Auto) 25.3, Monocytes (%) (Auto) 9.0H, Eosinophils (%) (Auto) 0.2, Basophils (%) (Auto) 0.7, Neutrophils # (Auto) 3.6, Lymphocytes # (Auto) 1.4L, Monocytes # (Auto) 0.5, Eosinophils # (Auto) 0.0, Basophils # (Auto) 0.0, Nucleated Red Blood Cells % (auto) 0.0, Anion Gap 8, Glomerular Filtration Rate > 60.0, Lactic Acid Level 0.8, Blood Urea Nitrogen 11, Creatinine 0.68, Sodium Level 141, Potassium Level 3.6, Chloride Level 106, Carbon Dioxide Level 27, Calcium Level 9.3, Digoxin Level 0.2L 08/11/19 19:56: Urine Color YELLOW, Urine Appearance CLEAR, Urine pH 8.0, Urine Specific [place] 1.013, Urine Protein 2+H, Urine Glucose (UA) NEGATIVE, Urine Ketones NEGATIVE, Urine Blood 1+H, Urine Nitrite NEGATIVE, Urine Bilirubin NEGATIVE, Urine Urobilinogen 0.2, Urine Leukocyte Esterase 3+H, Urine WBC (Auto) TNTCH, Urine RBC (Auto) 48H, Urine Hyaline Casts (Auto) 0, Urine Bacteria (Auto) 1+H, Urine Squamous Epithelial Cells 0, Urine Mucus (Auto) SMALL, Urine Sperm (Auto) 08/12/19 01:09: Bedside Glucose (Misc Panel) 109H 08/12/19 05:22: Nucleated Red Blood Cells % (auto) 0.0, Anion Gap 8, Glomerular Filtration Rate > 60.0, Blood Urea Nitrogen 12, Creatinine 0.48L, Sodium Level 142, Potassium Level 3.4L, Chloride Level 108H, Carbon Dioxide Level 26, Calcium Level 8.8, Magnesium Level 2.1 CBC/BMP Laboratory Tests 08/11/19 19:33 Red Blood Count 4.16, Mean Corpuscular Volume 91.6, Mean Corpuscular Hemoglobin 29.6, Mean Corpuscular Hemoglobin Concent 32.3, Red Cell Distribution Width 13.5, Neutrophils (%) (Auto) 64.6, Lymphocytes (%) (Auto) 25.3, Monocytes (%) (Auto) 9.0 H, Eosinophils (%) (Auto) 0.2, Basophils (%) (Auto) 0.7, Neutrophils # (Auto) 3.6, Lymphocytes # (Auto) 1.4 L, Monocytes # (Auto) 0.5, Eosinophils # (Auto) 0.0, Basophils # (Auto) 0.0, Calcium Level 9.3 08/12/19 05:22 Red Blood Count 3.76 L, Mean Corpuscular Volume 92.8, Mean Corpuscular Hemoglobi n 29.3, Mean Corpuscular Hemoglobin Concent 31.5 L, Red Cell Distribution Width 13.4, Calcium Level 8.8 Microbiology Microbiology 08/11/19 Blood Culture, Received Pending 08/11/19 Blood Culture, Received Pending 08/11/19 Urine Culture, Received Pending THALIA VILLAREAL [facility] Aug 12, 2019 11:25
[2019-08-12 11:46] VITALS: BP 109/63
--- NOTE | 2019-08-12 14:00 | CR ---
DATE OF CONSULTATION: 08/12/2019 CONCLUSIONS: 1. Acute pyelonephritis, pansensitive E. Coli. 2. Abnormal CT scan with right hydroureteronephrosis without evidence of right ureteral calculus, probable changes of dilation of the collecting system related to pyelonephritis versus recently spontaneously passed right ureteral calculus with residual changes. 3. History of renal calculi, spontaneous passage as well as bilateral nonobstructing renal calculi demonstrated on current CT scan. 4. Diabetes mellitus. 5. Atrial fibrillation. 6. History of morbid obesity status post gastric bypass. RECOMMENDATIONS: 1. Continue intravenous antibiotics and check results of blood cultures. 2. The patient's clinical course needs to be followed closely. If she fails to improve with administration of antibiotics, consider repeat imaging of the urinary tract with repeat CT scan to be sure the dilation of the right renal collecting system is diminishing. If there is evidence of persistent obstruction and the patient fails to clinically improve, then would consider the possibility of placement of a right internal ureteral catheter via cystoscopy. However, would like to avoid instrumentation of the urinary tract in the face of urinary tract infection unless obstruction is demonstrated to be persistently present. DISCUSSION: The patient is a 54-year-old female with a history of diabetes, atrial fibrillation, prior gastric bypass and a prior history of passage of a kidney stone last year. She was admitted to the hospital yesterday after progressive onset of bilateral flank pain, more prominent on the right than left with dysuria, fever and chills. She has noted dysuria but no gross hematuria. She has had no increased frequency of urination. She has had no nausea, no vomiting. She was evaluated on the 09 of August and a urine culture was obtained, which grew pansensitive E. Coli. Blood and urine cultures from yesterday are pending at this time. The patient has a history of prior gastric bypass surgery, atrial fibrillation on Xarelto and diabetes. PHYSICAL EXAMINATION: Pleasant cooperative female, alert and oriented. HEENT: Reveals patient to be normocephalic. Extraocular movements are full. Pupils equal, round and reactive to light and accommodation. NECK: Supple without adenopathy or bruits. CHEST: Symmetric. BACK: Mild right cerebrovascular accident (CVA) tenderness. No left CVA tenderness. Straight spine. ABDOMEN: Soft, nontender without palpable organomegaly or masses present. EXTREMITIES: Without cyanosis, clubbing, edema, deformity. NEUROLOGIC: Intact. SKIN: Without lesions. LABORATORY RESULTS FROM ADMISSION: White blood cell count 5,500, serum creatinine 0.68, BUN 11. IMAGING: CT scan is reviewed and demonstrates dilation of the right renal collecting system down to the ureterovesical junction without evidence of a calculus in the right ureter. There is some mild perinephric stranding present on the right side. There are small bilateral nonobstructing renal calculi present bilaterally. There is some thickening of the bladder wall.
[2019-08-12] MEDS: PERCOCET 5MG/325MG TAB PO PRN ×2 (15:54→21:50)
[2019-08-12 16:00] VITALS: BP 110/62
[2019-08-12] MEDS ORDERED: cefTRIAXone SOD 1 GM in D5W MINI-BAG PLUS 50 ML IV SCH (18:00)
[2019-08-12 18:57] VITALS: BP 128/64
[2019-08-13] VITALS (8 sets, daily range): BP systolic 106–123; BP diastolic 55–80
[2019-08-13] MEDS: ACETAMINOPHEN TAB 650MG DOSE (2X325MG) PO PRN ×3 (04:11→17:47)
[2019-08-13] MEDS: SLF 3 ML SYR IV SCH ×3 (05:06→20:58)
[2019-08-13] MEDS: HumaLOG INSULIN (NovoLOG) PER UNIT SC SCH ×3 (07:30→16:31)
[2019-08-13 07:35] LABS: BASO % 0.9 % (0.0-1.0); EOS # 0.1 10^3/uL (0.0-0.5); HEMATOCRIT 33.1 % (36.0-47.0); HEMOGLOBIN 10.6 g/dl (12.0-15.5); LYMPH # 1.9 10^3/uL (1.5-5.0); MEAN CORPUSCULAR HEMOGLOBIN 29.6 pg (27.0-33.0); MEAN CORPUSCULAR VOLUME 92.5 fl (80.0-96.0); MONO # 0.5 10^3/uL (0.0-0.8); MONO % 10.4 % (0.0-5.0); NEUTROPHILS # 2.1 10^3/uL (1.5-8.5); NEUTROPHILS % 45.5 % (36.0-66.0); PLATELET COUNT, AUTOMATED 206 10^3/uL (150-450); RED BLOOD COUNT 3.58 10^6/uL (4.00-5.40); WHITE BLOOD COUNT 4.5 10^3/uL (4.0-10.0)
[2019-08-13 07:58] LABS: BLOOD UREA NITROGEN 10 MG/DL (7-18); CALCIUM LEVEL 8.7 MG/DL (8.5-10.1); CARBON DIOXIDE LEVEL 26 MEQ/L (21-32); CHLORIDE LEVEL 108 MEQ/L (98-107); CREATININE FOR GFR 0.47 MG/DL (0.55-1.30); GLOMERULAR FILTRATION RATE > 60.0 (>51); GLUCOSE, FASTING 93 MG/DL (70-100); POTASSIUM SERUM 3.8 MEQ/L (3.5-5.1); SODIUM LEVEL 143 MEQ/L (136-145)
--- NOTE | 2019-08-13 08:11 | IPNPDOC ---
Subjective Review oF Systems Chief Complaint The patient is a 54-year-old female admitted with a reason for visit of Obstructive Uropathy. Events since Last Encounter The patient states that she is feeling alot better this am, right flank pain has diminished She has been afebrile overnight. Objective Physical Examination General Exam: Alert, Cooperative, No Acute Distress Heart Exam: Positive: Bradycardic, Regular Rhythm Vital Signs/I&O Vital Signs Date Time Temp Pulse Resp B/P (MAP) Pulse Ox O2 Delivery O2 Flow Rate FiO2 08/13/19 04:00 97.8 67 18 118/80 (93) 94 08/12/19 16:00 08/12/19 00:30 Nasal Cannula I&O- Last 24 Hours up to 6 AM 08/13/19 05:59 Intake Total 1430 ml Output Total 1575 ml Balance -145 ml Laboratory Data Labs 24H Laboratory Tests 2 08/12/19 11:46: Bedside Glucose (Misc Panel) 98 08/12/19 16:18: Bedside Glucose (Misc Panel) 150H 08/12/19 20:02: Bedside Glucose (Misc Panel) 177H 08/13/19 07:25: Immature Granulocyte % (Auto) 0.2, White Blood Count 4.5, Red Blood Count 3.58L, Hemoglobin 10.6L, Hematocrit 33.1L, Mean Corpuscular Volume 92.5, Mean Corpuscular Hemoglobin 29.6, Mean Corpuscular Hemoglobin Concent 32.0, Red Cell Distribution Width 13.3, Platelet Count 206, Neutrophils (%) (Auto) 45.5, Lympho cytes (%) (Auto) 41.0, Monocytes (%) (Auto) 10.4H, Eosinophils (%) (Auto) 2.0, Basophils (%) (Auto) 0.9, Neutrophils # (Auto) 2.1, Lymphocytes # (Auto) 1.9, Monocytes # (Auto) 0.5, Eosinophils # (Auto) 0.1, Basophils # (Auto) 0.0, Nucleated Red Blood Cells % (auto) 0.0, Anion Gap 9, Glomerular Filtration Rate > 60.0, Blood Urea Nitrogen 10, Creatinine 0.47L, Sodium Level 143, Potassium Level 3.8, Chloride Level 108H, Carbon Dioxide Level 26, Calcium Level 8.7 CBC/BMP Laboratory Tests 08/13/19 07:25 Red Blood Count 3.58 L, Mean Corpuscular Volume 92.5, Mean Corpuscular Hem oglobin 29.6, Mean Corpuscular Hemoglobin Concent 32.0, Red Cell Distribution Width 13.3, Neutrophils (%) (Auto) 45.5, Lymphocytes (%) (Auto) 41.0, Monocytes (%) (Auto) 10.4 H, Eosinophils (%) (Auto) 2.0, Basophils (%) (Auto) 0.9, Neutrophils # (Auto) 2.1, Lymphocytes # (Auto) 1.9, Monocytes # (Auto) 0.5, Eosinophils # (Auto) 0.1, Basophils # (Auto) 0.0, Calcium Level 8.7 FSBS Laboratory Tests Test 08/12/19 11:46 08/12/19 16:18 08/12/19 20:02 Range/Units Bedside Glucose (Misc Panel) 98 150 177 70-105 MG/DL Microbiology Microbiology 08/11/19 Blood Culture - Preliminary, Resulted No growth after 24 hours . All specim... 08/11/19 Blood Culture - Preliminary, Resulted No growth after 24 hours . All specim... 08/11/19 Urine Culture - Final, Complete Escherichia Coli Assessment/Plan Date Seen The patient was seen on 08/13/19. Patient Summary Impression: 1. Pyelonephritis, improving symptomatically with antibiotic administration 2. Dilation of right renal collecting system, probably secondary to pyelonephritis without obstructing process Plan: 1. Continue antibiotics and close observation 2. I see no indication for repeat imaging since patient is improving 3. I discussed the plan with the patient, she agrees. Problems (1) Pyelonephritis Status: Acute (2) Obstructive uropathy Status: Acute (3) Diabetes mellitus Status: Chronic (4) Paroxysmal atrial fibrillation Status: Chronic Plan/VTE VTE Prophylaxis Ordered?: Yes (Xarelto ) BRISA SESAY MD Aug 13, 2019 08:11
[2019-08-13] MEDS: CYANOCOBALAMIN 500 MCG TAB PO SCH (08:16)
[2019-08-13] MEDS: DOCUSATE SODIUM 100 MG CAP PO SCH ×2 (08:17→20:58)
[2019-08-13] MEDS: MAGNESIUM OXIDE 400 MG TAB (MAG-OX) PO SCH (08:17)
[2019-08-13] MEDS: LORATADINE 10 MG TAB PO SCH (08:17)
--- NOTE | 2019-08-13 08:25 | IPNPDOC ---
Subjective Date Seen The patient was seen on 08/13/19. Subjective Chief Complaint/HPI Patient lying in bed as I entered the room. She reports to be feeling a little better. She has some continued mild right sided back pain. No abdominal pain Constitutional: Denies: Chills, Fever Pulmonary: Denies: Dyspnea, Cough Cardiovascular: Denies: Chest Pain, Palpitations, Edema Gastrointestinal: Reports: Nausea, Other Symptoms (Flank pain, right side); Denies: Vomiting, Abdominal Pain Genitourinary: Denies: Dysuria, Frequency, Hematuria Psych: Reports: Mood Normal Objective Physical Examination General Exam: Positive: Alert, Cooperative, No Acute Distress Chest Exam: Positive: Clear to auscultation, Normal air movement Heart Exam: Positive: Rate Normal, Regular Rhythm Abdomen Exam: Positive: Normal bowel sounds, Other (bilateral flank tenderness ); Negative: Tenderness Extremity Exam: Negative: Edema Psych Exam: Positive: Mood NL Assessment /Plan Problems (1) Pyelonephritis Status: Acute Problem Text: 08/13/19: Afebrile. No elevated white count. Urine culture positive for e-coli. BC negative after 24 hours. Patient is clinically improving. Stop Ceftriaxone and change to Levaquin 500mg po q day for a total of 5 days. Hopeful discharge tomorrow 08/12/19: Afebrile. WBC 5.0. Day #2 of Ceftriaxone. Urine and BC cultures pending. Patient did have a urine culture collected in the outpatient setting 08/09/19 + for e-coli. Pain control , (2) Obstructive uropathy Status: Acute Problem Text: 08/13/19: Urology consulted. Noted. Considering that Levaquin is equally effective PO compared to IV will change to po form. RECOMMENDATIONS: 1. Continue intravenous antibiotics and check results of blood cultures. 2. If she fails to improve with administration of antibiotics, consider repeat imaging of the urinary tract with repeat CT scan to be sure the dilation of the right renal collecting system is diminishing. If there is evidence of persistent obstruction and the patient fails to clinically improve, then they would consider the possibility of placement of a right internal ureteral catheter via cystoscopy. However, would like to avoid instrumentation of the urinary tract in the face of urinary tract infection unless obstruction is demonstrated to be persistently present. 08/12/19: Urology consulted (3) Diabetes mellitus Status: Chronic Problem Text: 08/12/19: Sliding scale coverage (4) Paroxysmal atrial fibrillation Status: Chronic Problem Text: 08/12/19: On Xarelto and Dig Plan/VTE VTE Prophylaxis Ordered?: Yes (Xarelto ) VS, I&O, 24H, Fishbone Vital Signs/I&O Vital Signs Date Time Temp Pulse Resp B/P (MAP) Pulse Ox O2 Delivery O2 Flow Rate FiO2 08/13/19 08:00 97.4 59 20 108/65 (79) 94 08/12/19 16:00 08/12/19 00:30 Nasal Cannula I&O- Last 24 Hours up to 6 AM 08/13/19 06:00 Intake Total 1430 ml Output Total 1300 ml Balance 130 ml Laboratory Data 24H LABS Laboratory Tests 2 08/12/19 11:46: Bedside Glucose (Misc Panel) 98 08/12/19 16:18: Bedside Glucose (Misc Panel) 150H 08/12/19 20:02: Bedside Glucose (Misc Panel) 177H 08/13/19 07:25: Immature Granulocyte % (Auto) 0.2, White Blood Count 4.5, Red Blood Count 3.58L, Hemoglobin 10.6L, Hematocrit 33.1L, Mean Corpuscular Volume 92.5, Mean Corpuscular Hemoglobin 29.6, Mean Corpuscular Hemoglobin Concent 32.0, Red Cell Distribution Width 13.3, Platelet Count 206, Neutrophils (%) (Auto) 45.5, Lymphocytes (%) (Auto) 41.0, Monocytes (%) (Auto) 10.4H, Eosinophils (%) (Auto) 2.0, Basophils (%) (Auto) 0.9, Neutrophils # (Auto) 2.1, Lymphocytes # (Auto) 1.9, Monocytes # (Auto) 0.5, Eosinophils # (Auto) 0.1, Basophils # (Auto) 0.0, Nucleated Red Blood Cells % (auto) 0.0, Anion Gap 9, Glomerular Filtration Rate > 60.0, Blood Urea Nitrogen 10, Creatinine 0.47L, Sodium Level 143, Potassium Level 3.8, Chloride Level 108H, Carbon Dioxide Level 26, Calcium Level 8.7 CBC/BMP Laboratory Tests 08/13/19 07:25 Red Blood Count 3.58 L, Mean Corpuscular Volume 92.5, Mean Corpuscular Hemoglobin 29.6, Mean Corpuscular Hemoglobin Concent 32.0, Red Cell Distribution Width 13.3, Neutrophils (%) (Auto) 45.5, Lymphocytes (%) (Auto) 41.0, Monocytes (%) (Auto) 10.4 H, Eosinophils (%) (Auto) 2.0, Basophils (%) (Auto) 0.9, Neutrophils # (Auto) 2.1, Lymphocytes # (Auto) 1.9, Monocytes # (Auto) 0.5, Eosinophils # (Auto) 0.1, Basophils # (Auto) 0.0, Calcium Level 8.7 Microbiology Microbiology 08/11/19 Blood Culture - Preliminary, Resulted No growth after 24 hours . All specim... 08/11/19 Blood Culture - Preliminary, Resulted No growth after 24 hours . All specim... 08/11/19 Urine Culture - Final, Complete Escherichia Coli THALIA VILLAREAL Aug 13, 2019 08:25 Luc Jenkins MD Aug 13, 2019 13:04
[2019-08-13] MEDS: DIGOXIN 0.125 MG TAB PO SCH (09:33)
[2019-08-13] MEDS: LevoFLOXacin 500 MG TABLET PO SCH (17:43)
[2019-08-13] MEDS: RIVAROXABAN 20 MG TAB (XARELTO) PO SCH (17:43)
[2019-08-13] MEDS: ATORVASTATIN 20 MG TAB PO SCH (20:58)
[2019-08-14] MEDS: PERCOCET 5MG/325MG TAB PO PRN (00:13)
[2019-08-14 04:00] VITALS: BP 113/64
[2019-08-14] MEDS: SLF 3 ML SYR IV SCH ×2 (05:46→13:36)
[2019-08-14 05:56] LABS: BASO % 0.8 % (0.0-1.0); EOS # 0.1 10^3/uL (0.0-0.5); EOS % 2.3 % (0.0-3.0); HEMATOCRIT 33.5 % (36.0-47.0); HEMOGLOBIN 10.5 g/dl (12.0-15.5); LYMPH # 2.1 10^3/uL (1.5-5.0); LYMPH % 53.6 % (24.0-44.0); MEAN CORPUSCULAR HEMOGLOBIN 28.9 pg (27.0-33.0); MEAN CORPUSCULAR HGB CONC 31.3 g/dl (32.0-36.5); MEAN CORPUSCULAR VOLUME 92.3 fl (80.0-96.0); MONO # 0.4 10^3/uL (0.0-0.8); MONO % 9.6 % (0.0-5.0); NEUTROPHILS # 1.3 10^3/uL (1.5-8.5); NEUTROPHILS % 33.4 % (36.0-66.0); PLATELET COUNT, AUTOMATED 215 10^3/uL (150-450); RED BLOOD COUNT 3.63 10^6/uL (4.00-5.40); WHITE BLOOD COUNT 3.9 10^3/uL (4.0-10.0)
[2019-08-14] MEDS: ACETAMINOPHEN TAB 650MG DOSE (2X325MG) PO PRN ×2 (06:16→14:35)
[2019-08-14 06:17] LABS: BLOOD UREA NITROGEN 9 MG/DL (7-18); CALCIUM LEVEL 8.7 MG/DL (8.5-10.1); CARBON DIOXIDE LEVEL 28 MEQ/L (21-32); CHLORIDE LEVEL 109 MEQ/L (98-107); CREATININE FOR GFR 0.49 MG/DL (0.55-1.30); GLOMERULAR FILTRATION RATE > 60.0 (>51); GLUCOSE, FASTING 97 MG/DL (70-100); SODIUM LEVEL 144 MEQ/L (136-145)
[2019-08-14 08:00] VITALS: BP 107/59
[2019-08-14] MEDS: MAGNESIUM OXIDE 400 MG TAB (MAG-OX) PO SCH (09:03)
[2019-08-14] MEDS: CYANOCOBALAMIN 500 MCG TAB PO SCH (09:03)
[2019-08-14] MEDS: DOCUSATE SODIUM 100 MG CAP PO SCH (09:03)
[2019-08-14] MEDS: DIGOXIN 0.125 MG TAB PO SCH (09:03)
[2019-08-14] MEDS: LORATADINE 10 MG TAB PO SCH (09:03)
[2019-08-14] MEDS: HumaLOG INSULIN (NovoLOG) PER UNIT SC SCH ×3 (09:07→16:07)
[2019-08-14 12:00] VITALS: BP 108/63
[2019-08-14 16:00] VITALS: BP 110/68
[2019-08-14] MEDS: RIVAROXABAN 20 MG TAB (XARELTO) PO SCH (17:19)
[2019-08-14] MEDS: LevoFLOXacin 500 MG TABLET PO SCH (17:19)
--- NOTE | 2019-08-14 18:10 | DS.PDOC ---
Discharge Summary General Date of Admission Aug 11, 2019 at 23:26 Discharge Summary PROCEDURES PERFORMED DURING STAY: [None]. ADMITTING DIAGNOSES: 1. . DISCHARGE DIAGNOSES: 1. . COMPLICATIONS/CHIEF COMPLAINT: Obstructive Uropathy. HISTORY OF PRESENT ILLNESS: . HOSPITAL COURSE: . DISCHARGE MEDICATIONS: Please see below. ALLERGIES: Please see below. PHYSICAL EXAMINATION ON DISCHARGE: VITAL SIGNS: Please see below. GENERAL: HEENT: NECK: CARDIOVASCULAR EXAMINATION: RESPIRATORY EXAMINATION: ABDOMINAL EXAMINATION: EXTREMITIES: SKIN: NEUROLOGICAL EXAMINATION: PSYCHIATRIC EXAMINATION: LABORATORY DATA: Please see below. IMAGING: PROGNOSIS: ACTIVITY: [As tolerated]. DIET: DISCHARGE PLAN: DISPOSITION: . DISCHARGE INSTRUCTIONS: 1. . ITEMS TO FOLLOWUP ON ON OUTPATIENT: 1. . DISCHARGE CONDITION: [Stable]. TIME SPENT ON DISCHARGE: Greater than minutes. Vital Signs/I&Os Vital Signs Date Time Temp Pulse Resp B/P (MAP) Pulse Ox O2 Delivery O2 Flow Rate FiO2 08/14/19 16:00 96.9 57 18 110/68 (82) 95 08/12/19 16:00 08/12/19 00:30 Nasal Cannula I&O- Last 24 Hours up to 6 AM 08/14/19 06:00 Intake Total 1088 ml Output Total 1175 ml Balance -87 ml Laboratory Data Labs 24H Laboratory Tests 2 08/13/19 20:13: Bedside Glucose (Misc Panel) 105 08/14/19 05:32: Immature Granulocyte % (Auto) 0.3, White Blood Count 3.9L, Red Blood Count 3.63L, Hemoglobin 10.5L, Hematocrit 33.5L, Mean Corpuscular Volume 92.3, Mean Corpuscular Hemoglobin 28.9, Mean Corpuscular Hemoglobin Concent 31.3L, Red Cell Distribution Width 13.0, Platelet Count 215, Neutrophils (%) (Auto) 33.4L, Lymphocytes (%) (Auto) 53.6H, Monocytes (%) (Auto) 9.6H, Eosinophils (%) (Auto) 2.3, Basophils (%) (Auto) 0.8, Neutrophils # (Auto) 1.3L, Lymphocytes # (Auto) 2.1, Monocytes # (Auto) 0.4, Eosinophils # (Auto) 0.1, Basophils # (Auto) 0.0, Nucleated Red Blood Cells % (auto) 0.0, Anion Gap 7L, Glomerular Filtration Rate > 60.0, Blood Urea Nitrogen 9, Creatinine 0.49L, Sodium Level 144, Potassium Level 4.0, Chloride Level 109H, Carbon Dioxide Level 28, Calcium Level 8.7 08/14/19 17:18: Bedside Glucose (Misc Panel) 74 CBC/BMP Laboratory Tests 08/14/19 05:32 Red Blood Count 3.63 L, Mean Corpuscular Volume 92.3, Mean Corpuscular Hemoglobin 28.9, Mean Corpuscular Hemoglobin Concent 31.3 L, Red Cell Distr ibution Width 13.0, Neutrophils (%) (Auto) 33.4 L, Lymphocytes (%) (Auto) 53.6 H, Monocytes (%) (Auto) 9.6 H, Eosinophils (%) (Auto) 2.3, Basophils (%) (Auto) 0.8, Neutrophils # (Auto) 1.3 L, Lymphocytes # (Auto) 2.1, Monocytes # (Auto) 0.4, Eosinophils # (Auto) 0.1, Basophils # (Auto) 0.0, Calcium Level 8.7 FSBS Laboratory Tests Test 08/13/19 20:13 08/14/19 17:18 Range/Units Bedside Glucose (Misc Panel) 105 74 70-105 MG/DL Microbiology Microbiology 08/11/19 Blood Culture - Preliminary, Resulted No Growth after 48 hours. All Specime... 08/11/19 Blood Culture - Preliminary, Resulted No Growth after 48 hours. All Specime... 08/11/19 Urine Culture - Final, Complete Escherichia Coli Discharge Medications Scheduled Atorvastatin Calcium (Atorvastatin Calcium) 20 Mg Tablet, 20 MG PO QPM, (Reported) Biotin (Biotin) 5,000 Mcg Cap, 5,000 MCG PO DAILY, (Reported) Calcium Carbonate/Vitamin D3 (Calcium 600 + Vit D 400 Softgl) 1 Each Capsule, 1 CAP PO BID, (Reported) Cholecalciferol (Vitamin D3) (Vitamin D3) 5,000 Unit Capsule, 5,000 UNIT PO DAILY, (Reported) Cyanocobalamin (Vitamin B-12) (Vitamin B-12) 500 Mcg Tab, 500 MCG PO DAILY, (Reported) Digoxin (Digoxin) 125 Mcg Tablet, 125 MCG PO DAILY, (Reported) Loratadine (Claritin) 10 Mg Cap, 10 MG PO DAILY, (Reported) Magnesium Oxide (Magnesium Oxide) 400 Mg Tablet, 400 MG PO DAILY, (Reported) Metformin HCl (Metformin HCl) 500 Mg Tablet, 500 MG PO BID, (Reported) BREAKFAST AND SUPPER Multivitamin (Multivitamins) 1 Each Tablet, 2 TAB PO DAILY, (Reported) [place]-3 Fatty Acids/Fish Oil (Fish Oil 1,000 mg Capsule) 1 Each Capsule, 2,000 MG PO DAILY, (Reported) Polyethylene Glycol 3350 (Miralax) 119 Gm Powder, 17 GM PO DAILY, (Reported) dilute in 8 ounces of water or juice Rivaroxaban (Xarelto) 20 Mg Tablet, 20 MG PO ACS, (Reported) Scheduled PRN Clobetasol Propionate (Temovate) 15 Gm Oint...g., 1 APLCT TOP BID PRN for RASH/ITCHING, (Reported) APPLY TO HANDS Diclofenac Sodium (Diclofenac Sodium) 1.5% 150ML Drops, 40 DROP TOP QID PRN for PAIN, (Reported) APPLIED TO KNEES AND HIPS NEEDED Fluticasone Propionate (Fluticasone Propionate) 16 Gm [place].susp, 2 SPRAY NARES DAILY PRN for CONGESTION, (Reported) Ipratropium/Albuterol Sulfate (Combivent Respimat 20-100 Mcg) 1 Aer Aer, 1 PUFF INH QIDP PRN for WHEEZING, (Reported) Magnesium Hydroxide (Milk of Magnesia) 400 Mg/5 Ml Oral.susp, 2,400 MG PO QHS PRN for CONSTIPATION, (Reported) Ondansetron (Ondansetron Odt) 4 Mg Tab.rapdis, 4 MG PO Q6H PRN for NAUSEA OR VOMITING, (Reported) Allergies Coded Allergies: No Known Allergies (Unverified , 08/11/19) Ortega Oconnor MD Aug 14, 2019 18:10
[2019-08-14] MEDS ORDERED: LEVA1TAB2 PO (18:17)
== END 2019-08-14 18:55 | disposition home or self-care (01) | DRG 463 ==
LOC: M ED 18:11 → M ED INP 23:26 → M PCU 08-12 00:50
PROVIDERS: ADMIT Internal Medicine; ATTEND Family Medicine
DX: N10 Acute pyelonephritis (principal); I48.0 Paroxysmal atrial fibrillation; E11.9 Type 2 diabetes mellitus without complications; Z87.891 Personal history of nicotine dependence; B96.29 Other Escherichia coli [E. coli] as the cause of diseases classified elsewhere; N20.0 Calculus of kidney; Z79.899 Other long term (current) drug therapy

== ENCOUNTER → 2019-09-06 | Outpatient (CLI) | payer BC ==
[~2019-09-06] MED LIST changes: +ATOR1TAB21 PO; +CALCCAP4 PO; +DICL5SOL TOP; +DIGO0.12 PO; +FLUTISP NARES; +LEVA1TAB2 PO; +MAGN400T2 PO; +METF500T13 PO; +MILKSUS3 PO; +MIRA3350 PO; +MULT-40 PO; +ONDA4TAB6 PO; +TEMO0.0517 TOP; +VITA500054 PO; +XARE20TA PO
--- NOTE | 2019-09-07 17:41 | REP ---
Clinical: Nephrolithiasis. Technique: Real time french scale ultrasound examination using curved array transducer. Findings: Right kidney is normal in reniform shape and echogenicity demonstrating mild hydronephrosis without obvious nephrolithiasis, renal cystic or mass lesion. No perinephric collection. Right kidney measures 13.1 x 4.6 x 5.2 cm. Left kidney is normal in contour, size, echogenicity, and reniform shape without hydronephrosis, nephrolithiasis, renal cystic or mass lesion. No perinephric collection. Left kidney measures 12.3 x 4.4 x 6.6 cm. Impression: Mild nonspecific right hydronephrosis. No obvious nephrolithiasis. Electronically Signed by Brent Lindsey MD 09/07/2019 05:32 P
== END ==
LOC: M RAD 15:03
PROVIDERS: ATTEND Family Medicine
DX: N13.30 Unspecified hydronephrosis (principal); N20.0 Calculus of kidney

== ENCOUNTER → 2019-09-27 | Outpatient (CLI) | payer BC ==
--- NOTE | 2019-09-28 02:18 | REP ---
Clinical: Nephrolithiasis. Technique: Two supine views of the abdomen and pelvis. Findings: No obvious renal calcifications are identified. Calcifications noted within the pelvis are confirmed as phleboliths by recent CT dated 08/11/2019. However, small renal/ureteral calcifications cannot definitively be excluded due to overlying bowel gas and fecal material. Impression: 1. No definite urinary tract calcifications are appreciated. 2. Evaluation is somewhat limited due to overlying bowel gas and fecal material. Electronically Signed by Brent Lindsey MD 09/28/2019 02:10 A
== END ==
LOC: M RAD 12:19
PROVIDERS: ATTEND Specialist
DX: N20.0 Calculus of kidney (principal)

== ENCOUNTER → 2019-09-28 | Outpatient (REF) | payer BC ==
[2019-09-28 15:05] LABS: BACTERIA, URINE AUTO NEGATIVE (NEGATIVE); RBC, URINE AUTO TNTC /HPF (0-3); SQUAMOUS EPITHELIAL CELL UR AU 0 /HPF (0-6); WBC, URINE AUTO 3 /HPF (0-3)
== END ==
LOC: M SMT 13:47
PROVIDERS: ATTEND Specialist
DX: Z28.21 Immunization not carried out because of patient refusal (principal)

== ENCOUNTER → 2019-10-11 | Outpatient (CLI) | payer BC ==
[~2019-10-11] MED LIST changes: +FUROSEMIDE 20 MG/2 ML VIAL (J1940) As Ordered ONE
--- NOTE | 2019-10-11 10:13 | REP ---
Nuclear renal scintigraphy with differential flow and function: Lasix washout renography. History: Hydroureteronephrosis. Comparison CT study August 11, 2019. Comparison sonography September 06, 2019. Technique: 8.8 mCi technetium 99m Mag 3 is injected and posterior flow and excretory phase images are acquired. Renal cortical regions of interest are drawn and time activity curves are plotted for renal functional analysis. 20 mg of intravenous Lasix is administered and post Lasix washout venography is carried out. Scintigraphic findings: The posterior flow study shows normal symmetric perfusion of the kidneys. Excretory phase images demonstrate markedly delayed "nephrogram" phase tracer uptake on the left compared to the right. Collecting system of the right kidney is first labeled at 3 minutes and there is washout of the parenchyma. There does appear to be some hydronephrosis on the right. The collecting system of the left kidney is not labeled during the initial 28 minutes of imaging. Pre and post void bladder images demonstrate this pattern as well. Differential renal function analysis shows symmetric cortical uptake with 51% of overall counts coming from the left kidney and 49% from the right. Time to peak activity is delayed bilaterally measured at 7.0 minutes on the right and 29 minutes on the left. Time to half max activity is delayed bilaterally, 18.8 minutes on the right and greater than 30 minutes on the left. The left excretion curve shows significant rising slope. Post Lasix washout shows no measurable washout from the left kidney. Washout is normal from the right kidney. Impression: Findings consistent with severe obstructive nephropathy left kidney with persistent nephrogram and absence of labeling of the collecting system. No measurable post Lasix washout. The collecting system of the right kidney is mildly prominent but there is no evidence of right-sided obstructive uropathy. Flat excretion curve on the right and arising excretion curve on the left. Electronically Signed by Francisco J Odom MD 10/11/2019 12:44 P
== END ==
LOC: M RAD 07:21
PROVIDERS: ATTEND Specialist
DX: N13.30 Unspecified hydronephrosis (principal)
CPT/HCPCS: 78708; A9562; J1940

== ENCOUNTER → 2019-10-12 | Outpatient (REF) | payer BC ==
[~2019-10-12] MED LIST changes: -FUROSEMIDE 20 MG/2 ML VIAL (J1940) As Ordered ONE
[2019-10-12 13:35] LABS: BASO # 0.1 10^3/uL (0.0-0.2); BASO % 0.9 % (0.0-1.0); EOS # 0.1 10^3/uL (0.0-0.5); HEMOGLOBIN 12.2 g/dl (12.0-15.5); LYMPH # 2.4 10^3/uL (1.5-5.0); LYMPH % 42.4 % (24.0-44.0); MEAN CORPUSCULAR HEMOGLOBIN 28.6 pg (27.0-33.0); MEAN CORPUSCULAR HGB CONC 30.5 g/dl (32.0-36.5); MEAN CORPUSCULAR VOLUME 93.7 fl (80.0-96.0); MONO # 0.5 10^3/uL (0.0-0.8); MONO % 9.2 % (0.0-5.0); NEUTROPHILS # 2.5 10^3/uL (1.5-8.5); NEUTROPHILS % 45.3 % (36.0-66.0); PLATELET COUNT, AUTOMATED 273 10^3/uL (150-450); RED BLOOD COUNT 4.27 10^6/uL (4.00-5.40); WHITE BLOOD COUNT 5.6 10^3/uL (4.0-10.0)
[2019-10-12 13:55] LABS: HEMOGLOBIN A1c 6.8 %
[2019-10-12 14:12] LABS: ALBUMIN 3.6 GM/DL (3.2-5.2); ALT/SGPT 26 U/L (12-78); BILIRUBIN,TOTAL 0.5 MG/DL (0.2-1.0); BLOOD UREA NITROGEN 13 MG/DL (7-18); CARBON DIOXIDE LEVEL 28 MEQ/L (21-32); CHLORIDE LEVEL 105 MEQ/L (98-107); CHOLESTEROL LEVEL 149 MG/DL (<200); CHOLESTEROL RISK RATIO 2.128 (<5); CREATININE FOR GFR 0.96 MG/DL (0.55-1.30); FERRITIN 9 NG/ML (8-252); FREE T4 1.09 NG/DL (0.76-1.46); GLOMERULAR FILTRATION RATE > 60.0 (>51); GLUCOSE, FASTING 86 MG/DL (70-100); HDL CHOLESTEROL 70 MG/DL (>40); LDL CHOLESTEROL 55 MG/DL (<100); NON-HDL-C 79 MG/DL; POTASSIUM SERUM 4.2 MEQ/L (3.5-5.1); SODIUM LEVEL 140 MEQ/L (136-145); TOTAL PROTEIN 6.9 GM/DL (6.4-8.2); TRIGLYCERIDES LEVEL 119 MG/DL (<150)
[2019-10-14 11:07] LABS: ALBUMIN % 56.5 % (55.8-66.1); ALPHA-1-GLOBULIN % 4.9 % (2.9-4.9); ALPHA-1-GLOBULINS 0.34 GM/DL (0.17-0.41); BETA-1-GLOBULINS % 7.2 % (4.7-7.2); BETA-2-GLOBULINS 0.37 GM/DL (0.19-0.55); BETA-2-GLOBULINS % 5.3 % (3.2-6.5); GAMMA GLOBULIN % 13.1 % (11.1-18.8)
== END ==
LOC: M SFHCPLAZ 11:10
PROVIDERS: ATTEND Physician Assistant Medical
DX: E53.8 Deficiency of other specified B group vitamins (principal); E11.8 Type 2 diabetes mellitus with unspecified complications

== ENCOUNTER → 2019-10-28 | Outpatient (REF) | payer BC | LOC: M SMT 13:20 | PROVIDERS: ATTEND Urology | DX: R31.0 Gross hematuria (principal) ==

== ENCOUNTER → 2019-12-16 | Outpatient (CLI) | payer BC ==
[~2019-12-16] MED LIST changes: -DIGO0.12 PO; +DIGO0.123 PO; +VITA500079 PO
--- NOTE | 2019-12-17 08:31 | REP ---
Renal sonography: History: Hydroureteronephrosis. Comparison CT study August 11, 2019 and comparison renal sonography August 27, 2019. Sonographic findings: Emptying ureteral jets are observed bilaterally at the bladder lumen on color Doppler interrogation. Renal cortical echogenicity pattern is normal and renal contours are smooth bilaterally. The right kidney is a little larger than the left measuring 13.0 x 7.2 x 4.5 cm. Left renal dimensions are 10.4 x 5.4 x 7.4 cm. There is no evidence of hydronephrosis on either side today. No calculus mass or cyst is seen. Impression: Left kidney a little smaller than right. No hydronephrosis or other morphologic abnormality. Electronically Signed by Francisco J Odom MD 12/17/2019 08:52 A
== END ==
LOC: M RAD 10:22
PROVIDERS: ATTEND Specialist
DX: N13.30 Unspecified hydronephrosis (principal)

== ENCOUNTER 2019-12-30 06:38 | Day surgery (SDC) | payer BC ==
[~2019-12-30] VITALS: Ht 154.9 cm; Wt 73.5 kg
[~2019-12-30 06:38] MED LIST changes: +NS 1,000 ML IV ONE
[2019-12-30] MEDS ORDERED: propofoL 200 MG/20 ML VIAL As Ordered ONE (08:37)
[2019-12-30] MEDS ORDERED: LIDOCAINE 2% INJ 100 MG/5 ML SDV (FOR ANES.) As Ordered ONE (08:37)
--- NOTE | 2019-12-30 08:59 | ROOR ---
Patient Name: Cordelia Pino Procedure Date: 12/30/2019 8:16 AM Date of : 1965 Age: 54 Room: [facility] Gender: Female Note Status: Finalized Procedure: Colonoscopy Indications: High risk colon cancer surveillance: Personal history of adenoma with high grade dysplasia Providers: Gigi MIJARES MD Referring MD: Chaz Ruiz MD Requesting Provider: Medicines: Monitored Anesthesia Care Complications: No immediate complications. Procedure: Pre-Anesthesia Assessment: - The heart rate, respiratory rate, oxygen saturations, blood pressure, adequacy of pulmonary ventilation, and response to care were monitored throughout the procedure. The Colonoscope was introduced through the anus and advanced to the terminal ileum, with identification of the appendiceal orifice and IC valve. The colonoscopy was performed without difficulty. The patient tolerated the procedure well. The quality of the bowel preparation was good. Findings: The perianal and digital rectal examinations were normal. The colon (entire examined portion) was redundant. A tattoo was seen in the ascending colon. A post-polypectomy scar was found at the tattoo site. A 3 mm polyp was found in the ascending colon at the previously tattooed polypectomy site. The polyp was sessile. The polyp was removed with a cold snare. Resection and retrieval were complete. A diminutive polyp was found in the splenic flexure. The polyp was sessile. The polyp was removed with a cold snare. Resection and retrieval were complete. Mild sigmoid diverticulosis and small internal hemorrhoids. Impression: - A tattoo was seen in the ascending colon. A post-polypectomy scar and 3 mm polypoid tissue was found at the tattoo site. - One diminutive polyp at the splenic flexure, removed with a cold snare. Resected and retrieved. - Mild sigmoid diverticulosis and small internal hemorrhoids. Recommendation: - Resume Xarelto (rivaroxaban) at prior dose tomorrow. - Await pathology results. - Telephone endoscopist for pathology results in 2 weeks. - Repeat colonoscopy in 1-3 years for surveillance based on pathology results. Gigi Mijares MD Gigi MIJARES MD 12/30/2019 8:59:15 AM Electronically signed by Gigi MIJARES MD Number of Addenda: 0 Note Initiated On: 12/30/2019 8:16 AM Estimated Blood Loss: Estimated blood loss: none.
[2019-12-30 09:05] VITALS: BP 108/83
== END 2019-12-30 09:30 | disposition home or self-care (01) ==
LOC: M OPP 06:38
PROVIDERS: ATTEND Internal Medicine Gastroenterology
DX: Z12.11 Encounter for screening for malignant neoplasm of colon (principal); Z86.010 Personal history of colon polyps; D12.3 Benign neoplasm of transverse colon; D12.2 Benign neoplasm of ascending colon; Q41.8 Congenital absence, atresia and stenosis of other specified parts of small intestine; K64.8 Other hemorrhoids; K57.30 Diverticulosis of large intestine without perforation or abscess without bleeding; G47.30 Sleep apnea, unspecified; E11.9 Type 2 diabetes mellitus without complications; I48.91 Unspecified atrial fibrillation; I34.9 Nonrheumatic mitral valve disorder, unspecified; Z98.84 Bariatric surgery status; Z79.899 Other long term (current) drug therapy

== ENCOUNTER 2020-01-13 15:19 | Inpatient (IN) | payer BC ==
[2020-01-13] VITALS (8 sets, daily range): BP systolic 104–114; BP diastolic 55–69
[~2020-01-13] VITALS: Ht 154.9 cm; Wt 75.0 kg
[~2020-01-13 15:19] MED LIST changes: -NS 1,000 ML IV ONE
--- NOTE | 2020-01-13 17:39 | HPEPDOC ---
General Date of Admission Jan 13, 2020 at 16:54 Date of Service: Jan 13, 2020 Primary Care Physician: Chaz Ruiz M.D. Other Providers Coal Washer: Dr. Hdez Education Spec: Dr. Lopez Curtain Stretcher: Brady pulmonary Urologist: Dr. Pendleton Chief Complaint The patient is a 54-year-old female admitted with a reason for visit of Gi Bleed. History of Present Illness HPI: This is a 54-year-old female is a direct admit transferred over from [facility] for acute symptomatic anemia. She had an episode of lightheadedness, dizziness, presyncopal with chest pain and short of breath at work earlier today for which she was worked up at their hospital. She reports she has had this ongoing for the past 1 week, along with melanotic stools and diffuse abdominal cramping that she attributed to gas. Denies any bright red blood, nausea, vomiting, loss of appetite, fever or chills. No recent changes in medications, no recent travel or sick contacts. Her baseline hemoglobin is around 12, and she was found to have hemoglobin of 7.1 during their workup. Per their records sent over with the transfer, chest x-ray was negative, cardiac markers negative, hemoglobin 7.1, no leukocytosis, normal platelets, and remaining labs unremarkable. She denies any history of GI bleeds in the past or ever receiving blood transfusions, however has a history of gastric bypass in 2014 in [place]. She is also chronically on Xarelto for her paroxysmal A. fib, and has been on this for multiple years without any issues. She recently underwent a screening colonoscopy 2 weeks ago 12/30/19, due to her history of adenoma with high-grade dysplasia. During this scope, polyp was snared and diverticulosis was noted. She reports she did have an EGD done in 2014 along with a gastric bypass, which was negative for any acute findings. On admission, she was found to be fatigue, conjunctival pallor, dry mucous membranes. Currently our admission workup is ordered and pending. Risks, benefits of holding Xarelto and transfusion was discussed with patient. Informed consent signed in chart and 2 units ordered. GI has been consulted for concern of GI bleed, and Dr. Lopez may possibly scope her tonight. PMH: NIDDM 2 Paroxysmal A. 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 Admits feeling short of breath Cardiac: Denies palpitations, orthopnea, PND, edema. Admits chest pain and tightness and lightheadedness and dizziness GI: Denies nausea, vomiting, constipation, hematochezia, hematemesis. Admits melanotic diarrhea and diffuse abdominal cramping : Denies dysuria, hematuria, retention MSK: Denies new pains or muscle aches or joint swelling Neurologic: Denies new numbness/tingling PHYSICAL: General exam: A&Ox3, NAD, resting comfortably HEENT: NCAT, EOMI, dry mucous membranes, conjunctival pallor present Cardiac: RRR, normal S1 & S2, systolic 2/6 murmur heard best on left sternal border without any radiation Respiratory: CTAB, good air exchange, no w/r/r or accessory muscle use Abdomen: soft, ND, hyperactive bowel sounds. No rebound guarding or rigidity. Tender to deep palpation in the mid abdomen Extremity: 2+ radial and dorsalis pedis pulses, no calf tenderness, trace lower extremity edema bilaterally Skin: warm, dry, no visible rash. Pale-appearing Msk: strength 5/5 x4, normal tone Neuro: normal speech, no focal deficits Psych: Normal mood, flat affect LABORATORY DATA, MICROBIOLOGY: Please see below. IMAGING STUDIES: Chest x-ray done at [facility] found no acute cardiopulmonary process-report in physical chart ASSESSMENT AND PLAN: This is a 54-year-old female with history of gastric bypass in 2014 and paroxysmal A. fib chronically on Xarelto for multiple years who initially presented to [facility] for dizziness and lightheadedness, chest tightness, shortness of breath and feeling weak overall. Workup was negative except for hemoglobin 7.1. Her baseline appears to be 12. She is transferred to [facility] for her level of care. She denies any prior history of GI bleeds. Of note, she noted melanotic diarrhea and abdominal cramping for the past week which she attributed to gas pains. She did undergo a screening colonoscopy 2 weeks prior on 12/30/19 where she underwent a polypectomy and was found to have diverticulosis. 1. Dyspnea, chest tightness, fatigue likely 2/2 acute blood loss anemia Baseline hemoglobin 12, noted to be 7.1 prior to being transferred to [facility] Informed consent for transfusion obtained, 2 units ordered. Repeat H&H ordered Concern for possible upper GI bleed especially given her history of gastric b ypass and chronic on Xarelto Hold Xarelto, keep nothing by mouth, started on IV Protonix GI consulted, appreciate input. Dr. Lopez might scope tonight Chest x-ray prior to transfer was negative-report in chart, unlikely cardiac or respiratory Cardiac markers ordered; monitor on telemetry Patient hemodynamically stable. Transfuse to maintain hemoglobin >8 2. Paroxysmal A. fib Chronically on digoxin and Xarelto without any history of bleeds. Will hold Xarelto. Risks of stroke versus bleed discussed in depth with patient she is agreeable to holding anticoagulation and continue digoxin. ---For the remainder of her chronic medical conditions, no changes made. Home meds are on hold until she is further stabilized. DVT prophylaxis: Mechanical, avoid intercourse correlation given GI bleed concern DISPOSITION: Admit to hospital, will sign out to family medicine service, who will resume care in the morning. GI consulted. Home Medications Scheduled Atorvastatin Calcium (Atorvastatin Calcium) 20 Mg Tablet, 20 MG PO QPM, (Reported) Biotin (Biotin) 5,000 Mcg Cap, 5,000 MCG PO DAILY, (Reported) Calcium Carbonate/Vitamin D3 (Calcium 600 + Vit D 400 Softgl) 1 Each Capsule, 1 CAP PO BID, (Reported) Cholecalciferol (Vitamin D3) (Vitamin D3) 5,000 Unit Tab.rapdis, 5,000 UNIT PO DAILY, (Reported) Cyanocobalamin (Vitamin B-12) (Vitamin B-12) 500 Mcg Tab, 500 MCG PO DAILY, (Reported) Digoxin (Digoxin) 125 Mcg Tablet, 125 MCG PO DAILY, (Reported) Loratadine (Claritin) 10 Mg Cap, 10 MG PO DAILY, (Reported) Magnesium Oxide (Magnesium Oxide) 400 Mg Tablet, 400 MG PO DAILY, (Reported) Metformin HCl (Metformin HCl) 500 Mg Tablet, 500 MG PO BID, (Reported) BREAKFAST AND SUPPER Multivitamin (Multivitamins) 1 Each Tablet, 2 TAB PO DAILY, (Reported) [place]-3 Fatty Acids/Fish Oil (Fish Oil 1,000 mg Capsule) 1 Each Capsule, 2,000 MG PO DAILY, (Reported) Polyethylene Glycol 3350 (Miralax) 119 Gm Powder, 17 GM PO DAILY, (Reported) dilute in 8 ounces of water or juice Rivaroxaban (Xarelto) 20 Mg Tablet, 20 MG PO DAILY, (Reported) Scheduled PRN Clobetasol Propionate (Temovate) 15 Gm Oint...g., 1 APLCT TOP BID PRN for RASH/ITCHING, (Reported) APPLY TO HANDS Diclofenac Sodium (Diclofenac Sodium) 1.5% 150ML Drops, 40 DROP TOP QID PRN for PAIN, (Reported) APPLIED TO KNEES AND HIPS NEEDED Fluticasone Propionate (Fluticasone Propionate) 16 Gm [place].susp, 2 SPRAY NARES DAILY PRN for CONGESTION, (Reported) Ipratropium/Albuterol Sulfate (Combivent Respimat 20-100 Mcg) 1 Aer Aer, 1 PUFF INH QIDP PRN for WHEEZING, (Reported) Magnesium Hydroxide (Milk of Magnesia) 400 Mg/5 Ml Oral.susp, 2,400 MG PO QHS PRN for CONSTIPATION, (Reported) Ondansetron (Ondansetron Odt) 4 Mg Tab.rapdis, 4 MG PO Q6H PRN for NAUSEA OR VOMITING, (Reported) Allergies Coded Allergies: No Known Allergies (Unverified , 12/16/19) A-FIB/CHADSVASC A-FIB History Current/History of A-Fib/PAF?: Yes Current PO Anticoag Therapy: Yes Vital Signs Plan / VTE VTE Prophylaxis Ordered?: Yes LOUIE LEE DO Jan 13, 2020 17:39
[2020-01-13 17:45] LABS: BASO % 0.4 % (0.0-1.0); EOS # 0.1 10^3/uL (0.0-0.5); EOS % 1.3 % (0.0-3.0); LYMPH # 3.3 10^3/uL (1.5-5.0); LYMPH % 45.9 % (24.0-44.0); MEAN CORPUSCULAR HEMOGLOBIN 28.7 pg (27.0-33.0); MEAN CORPUSCULAR HGB CONC 32.2 g/dl (32.0-36.5); MEAN CORPUSCULAR VOLUME 89.2 fl (80.0-96.0); MONO # 0.4 10^3/uL (0.0-0.8); MONO % 5.9 % (0.0-5.0); NEUTROPHILS # 3.3 10^3/uL (1.5-8.5); NEUTROPHILS % 46.1 % (36.0-66.0); PLATELET COUNT, AUTOMATED 189 10^3/uL (150-450); RED BLOOD COUNT 1.95 10^6/uL (4.00-5.40); WHITE BLOOD COUNT 7.2 10^3/uL (4.0-10.0)
[2020-01-13 17:48] LABS: HEMATOCRIT 17.4 % (36.0-47.0); HEMOGLOBIN 5.6 g/dl (12.0-15.5)
[2020-01-13 17:59] LABS: INR 1.45; PROTHROMBIN TIME 17.4 SECONDS (11.8-14.0)
[2020-01-13 18:00] LABS: PARTIAL THROMBOPLASTIN TIME 31.7 SECONDS (25.0-38.4)
[2020-01-13 18:18] LABS: ALBUMIN 2.8 GM/DL (3.2-5.2); ALT/SGPT 15 U/L (12-78); BILIRUBIN,TOTAL 0.3 MG/DL (0.2-1.0); BLOOD UREA NITROGEN 28 MG/DL (7-18); CALCIUM LEVEL 7.7 MG/DL (8.5-10.1); CARBON DIOXIDE LEVEL 25 MEQ/L (21-32); CHLORIDE LEVEL 113 MEQ/L (98-107); CK-MB VALUE MASS 1.1 NG/ML (<3.6); CPK CREATINE PHOSPHOKINASE 45 U/L (26-192); CREATININE FOR GFR 0.44 MG/DL (0.55-1.30); GLOMERULAR FILTRATION RATE > 60.0 (>51); GLUCOSE, FASTING 115 MG/DL (70-100); MB/CK RELATIVE INDEX 2.44 (< OR =4); POTASSIUM SERUM 3.9 MEQ/L (3.5-5.1); SODIUM LEVEL 143 MEQ/L (136-145); TOTAL PROTEIN 5.2 GM/DL (6.4-8.2); TROPONIN I 0.03 NG/ML (< 0.10)
[2020-01-13 18:42] LABS: FERRITIN 3 NG/ML (8-252); IRON (FE) 87 UG/DL (50-170); PERCENT SATURATION 23.1 % (13.2-45.0); TOTAL IRON BINDING CAPACITY 376 UG/DL (250-450)
[2020-01-13 18:54] LABS: MEAN CORPUSCULAR HEMOGLOBIN 28.9 pg (27.0-33.0); MEAN CORPUSCULAR HGB CONC 31.6 g/dl (32.0-36.5); MEAN CORPUSCULAR VOLUME 91.6 fl (80.0-96.0); PLATELET COUNT, AUTOMATED 198 10^3/uL (150-450); WHITE BLOOD COUNT 6.9 10^3/uL (4.0-10.0)
[2020-01-13 18:59] LABS: HEMATOCRIT 17.4 % (36.0-47.0); HEMOGLOBIN 5.5 g/dl (12.0-15.5)
[2020-01-13] MEDS ORDERED: TYLETAB14 PO (19:14)
--- NOTE | 2020-01-13 19:39 | CR ---
DATE OF CONSULTATION: 01/13/2020 STATUS OF PATIENT: Inpatient. REQUESTING PHYSICIAN: Hospitalist service. REASON FOR CONSULTATION: Anemia. HISTORY OF PRESENT ILLNESS: This is a 54-year-old female with a past medical history of atrial arrhythmia; she is on Xarelto chronically. She also has a history of gastric bypass surgery in 2014 and a history of a tubulovillous adenoma with high-grade dysplasia initially diagnosed in 2015, removed and followed in 2016 and most recently on 12/30/2019. She was in her usual state of health until approximately one week ago, when she developed some weakness, fatigue and shortness of breath. She presented to her local hospital where she had a cardiac workup performed and essentially ruled out for any myocardial issues; however, she was found to have a hemoglobin of 7.4 on that presentation. The patient denies any bright red blood per rectum, especially since the colonoscopy three weeks ago. She does note one black stool that happened approximately 7-10 days ago. However, her stools have been reportedly brown and normal. MEDICATIONS: - Xarelto - MiraLax - multivitamin - magnesium oxide - fish oil - digoxin - Zofran ALLERGIES: No known drug allergies. PAST MEDICAL HISTORY: 1. Non-insulin dependent diabetes. 2. Atrial flutter. SURGICAL HISTORY: 1. Tonsillectomy. 2. Hysterectomy. 3. (C) section. 4. Gastric bypass surgery 06/2015. 5. Colonoscopy 06/2016 with a tubulovillous adenoma high-grade dysplasia in the ascending colon. Followup colonoscopy in 2016 and 12/30/2019. FAMILY HISTORY: Positive for a B-cell tumor in the her sister that was located in the appendix. It is positive for diabetes, hypertension. Negative for colorectal carcinoma or inflammatory bowel disease. SOCIAL HISTORY: Negative for tobacco and negative for alcohol. VITAL SIGNS: Temperature 98.3, pulse 78, respiratory rate 20, blood pressure is 110/68, pulse oximetry 99% on room air. GENERAL: She is awake, alert and oriented times three. She is fatigued in appearance. Mildly ill but nontoxic. She is quite pale. HEAD, EYES, EARS, NOSE and THROAT: Notable for mucosal pallor. Neck is supple. No lymphadenopathy, thyromegaly. CHEST: Clear bilaterally. HEART: Regular rate and rhythm, S1-S2. No murmurs or gallops. The heart rate appears to be in the normal range, even on sitting up. ABDOMEN: Soft, nontender. Good bowel sounds. No masses felt. EXTREMITIES: Negative for edema. RECTAL: Examination is declined as per patient. LABORATORY FINDINGS: Hemoglobin 5.6/5.5, platelet count is 189/189, WBC 7.2/6.9, MCV 89.2/91.6. BUN 28, creatinine 0.44. Total bilirubin 0.3, AST 10, albumin 2.8. IMPRESSION: 1. Profound symptomatic anemia. 2. Black stool times one over the past two weeks. Otherwise, normal bowel movements. 3. History of gastric bypass. 4. History of recent (12/30/19) colonoscopy with polypectomy. 5. The patient is on Xarelto RECOMMENDATIONS 1. Hold Xarelto. Monitor H&H. 2. Transfuse the patient to reduce her anemia symptoms. 3. Esophagogastroduodenoscopy (EGD) once symptomatically improved from her anemia. 4. Further recommendations depending on progress. MTDD
[2020-01-13] MEDS: PANTOPRAZOLE 40MG INJ (PROTONIX) (C9113) IV SCH (20:46)
[2020-01-13] MEDS: ACETAMINOPHEN TAB 650MG DOSE (2X325MG) PO PRN (22:30)
--- NOTE | 2020-01-13 22:33 | ECGEPIP ---
[facility] Test Date: 2020-01-13 Pat Name: OSORIO SRINIVASAN Department: Room: [place] [address] Gender: Female Correctional Case Manager: KAYCE : 1965 Requested By: LOUIE LEE Order Number: [id number] Reading MD: Gigi Haynes Measurements Intervals [place] Rate: 79 P: 25 WY: 161 QRS: -8 QRSD: 92 T: 67 QT: 378 QTc: 433 Interpretive Statements SINUS RHYTHM NONSPECIFIC T-WAVE ABNORMALITY No PVCs compared with 02/01/2017 at 5:56 AM Electronically Signed on 01-13-2020 22:33:24 EST by Gigi Haynes
[2020-01-14] VITALS (17 sets, daily range): BP systolic 99–132; BP diastolic 55–67
[2020-01-14 00:14] LABS: HEMATOCRIT 23.9 % (36.0-47.0)
[2020-01-14 00:19] LABS: HEMOGLOBIN 7.6 g/dl (12.0-15.5)
[2020-01-14 00:40] LABS: CK-MB VALUE MASS < 1.0 NG/ML (<3.6); CPK CREATINE PHOSPHOKINASE 45 U/L (26-192); MB/CK RELATIVE INDEX 2.22 (< OR =4); TROPONIN I 0.02 NG/ML (< 0.10)
[2020-01-14 05:38] LABS: HEMATOCRIT 31.3 % (36.0-47.0); MEAN CORPUSCULAR HEMOGLOBIN 28.9 pg (27.0-33.0); MEAN CORPUSCULAR HGB CONC 33.5 g/dl (32.0-36.5); MEAN CORPUSCULAR VOLUME 86.2 fl (80.0-96.0); PLATELET COUNT, AUTOMATED 150 10^3/uL (150-450); RED BLOOD COUNT 3.63 10^6/uL (4.00-5.40); WHITE BLOOD COUNT 6.2 10^3/uL (4.0-10.0)
[2020-01-14 05:41] LABS: HEMOGLOBIN 10.5 g/dl (12.0-15.5)
[2020-01-14 06:10] LABS: BLOOD UREA NITROGEN 24 MG/DL (7-18); CALCIUM LEVEL 7.3 MG/DL (8.5-10.1); CARBON DIOXIDE LEVEL 24 MEQ/L (21-32); CHLORIDE LEVEL 115 MEQ/L (98-107); CK-MB VALUE MASS < 1.0 NG/ML (<3.6); CPK CREATINE PHOSPHOKINASE 46 U/L (26-192); GLOMERULAR FILTRATION RATE > 60.0 (>51); GLUCOSE, FASTING 114 MG/DL (70-100); MB/CK RELATIVE INDEX 2.17 (< OR =4); POTASSIUM SERUM 3.8 MEQ/L (3.5-5.1); SODIUM LEVEL 143 MEQ/L (136-145); TROPONIN I < 0.02 NG/ML (< 0.10)
--- NOTE | 2020-01-14 07:59 | IPNPDOC ---
Subjective Date Seen The patient was seen on 01/14/20. Subjective Chief Complaint/HPI GIB, acute blood loss anemia. Events since last encounter patient admitted overnight for acute blood loss anemia with admitting Hgb of 5. Received a total of 4 units of blood via transfusion. States mild improvement today. admits to BA. Marcial currently on hold. Planned EGD with Dr. Lopez today. Constitutional: Reports: Fatigue; Denies: Chills, Fever, Night Sweats Pulmonary: Reports: Dyspnea Cardiovascular: Denies: Chest Pain, Palpitations, Orthopnea, Paroxysmal Noc. Dyspnea, Lt Headedness Gastrointestinal: Denies: Nausea, Vomiting, Abdominal Pain, Diarrhea, Constipation Genitourinary: Denies: Dysuria, Frequency, Incontinence, Retention Psych: Reports: Mood Normal; Denies: Depression, Memory Issues Objective Physical Examination General Exam: Positive: Alert, No Acute Distress Neck Exam: Positive: Supple; Negative: JVD, thyromegaly Chest Exam: Positive: Clear to auscultation, Normal air movement Heart Exam: Positive: Rate Normal, Regular Rhythm, Normal S1, Normal S2; Negative: Murmurs, Rubs Telemetry: Positive: No significant arrhythmia Psych Exam: Positive: Mental status NL, Mood NL, Oriented x 3 Assessment /Plan Problems (1) Acute blood loss anemia Status: Acute Problem Text: Improved hgb of 10 this am. (2) GI bleed Status: Acute Problem Specific Plan: Consult Specialist Problem Text: Dr. Lopez has consulted, see note in record. Planned EGD today. NS ordered for fluid support until after her EGD. (3) Paroxysmal atrial fibrillation Status: Chronic Problem Text: Xarelto currently on hold due anemia, GIB (4) Diabetes mellitus Status: Chronic Problem Text: metformin on hold. once able to take po will need RISS and diabetic diet. Plan/VTE VTE Prophylaxis Ordered?: No VTE Exclusion Pharmacological: Active Bleeding VS, I&O, 24H, Fishbone Vital Signs/I&O Vital Signs Date Time Temp Pulse Resp B/P (MAP) Pulse Ox O2 Delivery O2 Flow Rate FiO2 01/14/20 06:00 97.7 65 16 107/58 (74) 96 Room Air I&O- Last 24 Hours up to 6 AM 01/14/20 05:59 Intake Total 2948 ml Output Total 750 ml Balance 2198 ml Laboratory Data 24H LABS Laboratory Tests 2 01/13/20 17:36: Immature Granulocyte % (Auto) 0.4, Neutrophils (%) (Auto) 46.1, Lymphocytes (%) (Auto) 45.9H, Monocytes (%) (Auto) 5.9H, Eosinophils (%) (Auto) 1.3, Basophils (%) (Auto) 0.4, Neutrophils # (Auto) 3.3, Lymphocytes # (Auto) 3.3, Monocytes # (Auto) 0.4, Eosinophils # (Auto) 0.1, Basophils # (Auto) 0.0, Reticulocyte # (auto) 55.4, Nucleated Red Blood Cells % (auto) 0.0, Percent Reticulocyte Count 2.9H, Reticulocyte Hemoglobin Equivalent 34.7, Prothrombin Time 17.4H, Prothromb Time International Ratio 1.45, Activated Partial Thromboplast Time 31.7, Anion Gap 5L, Glomerular Filtration Rate > 60.0, Lactic Acid Level 1.3, Calcium Level 7.7L, Iron Level 87, Total Iron Binding Capacity 376, Transferrin % Saturation 23.1, Ferritin 3L, Total Bilirubin 0.3, Aspartate Amino Transf (AST/SGOT) 10, Alanine Aminotransferase (ALT/SGPT) 15, Alkaline Phosphatase 59, Total Creatine Kinase 45, Creatine Kinase MB 1.1, Creatine Kinase MB Relative Index 2.44, Troponin I 0.03, Total Protein 5.2L, Albumin 2.8L, Albumin/Globulin Ratio 1.17 01/13/20 18:43: Nucleated Red Blood Cells % (auto) 0.0 01/13/20 22:39: Bedside Glucose (Misc Panel) 119H 01/14/20 00:08: Total Creatine Kinase 45, Creatine Kinase MB < 1.0, Creatine Kinase MB Relative Index 2.22, Troponin I 0.02# 01/14/20 05:28: Nucleated Red Blood Cells % (auto) 0.0, Anion Gap 4L, Glomerular Filtration Rate > 60.0, Calcium Level 7.3L, Total Creatine Kinase 46, Creatine Kinase MB < 1.0, Creatine Kinase MB Relative Index 2.17, Troponin I < 0.02 CBC/BMP Laboratory Tests 01/13/20 17:36 01/13/20 18:43 01/14/20 00:08 01/14/20 05:28 Dayana Barba CMO & PRESIDENT Jan 14, 2020 07:59 Luc Jenkins MD Jan 14, 2020 10:46
[2020-01-14] MEDS: PANTOPRAZOLE 40MG INJ (PROTONIX) (C9113) IV SCH ×2 (09:19→21:07)
[2020-01-14] MEDS: ACETAMINOPHEN TAB 650MG DOSE (2X325MG) PO PRN (09:27)
[2020-01-14] MEDS: NS 1,000 ML IV SCH (11:10)
[2020-01-14 11:42] LABS: HEMATOCRIT 31.9 % (36.0-47.0); HEMOGLOBIN 10.8 g/dl (12.0-15.5)
[2020-01-14] MEDS ORDERED: propofoL 200 MG/20 ML VIAL As Ordered ONE (16:00)
[2020-01-14] MEDS ORDERED: LIDOCAINE 2% INJ 100 MG/5 ML SDV (FOR ANES.) As Ordered ONE (16:00)
[2020-01-14] MEDS ORDERED: fentaNYL 100 MCG/2 ML INJECTION (J3010) As Ordered ONE (16:10)
[2020-01-14] MEDS ORDERED: PHENYLephrine HCL 500 MCG/5 ML (100MCG/ML) SYRINGE (J2370) As Ordered ONE (16:45)
--- NOTE | 2020-01-14 16:58 | ROOR ---
Patient Name: Cordelia Pino Procedure Date: 01/14/2020 4:36 PM Date of : 1965 Age: 54 Room: [facility] Gender: Female Note Status: Finalized Procedure: Upper GI endoscopy Indications: Acute post hemorrhagic anemia, Melena Providers: Gigi LOPEZ MD Referring MD: 2. Inpatient 2. Inpatient, Chaz Ruiz MD, Ky Hdez MD Requesting Provider: Medicines: Monitored Anesthesia Care Complications: No immediate complications. Procedure: Pre-Anesthesia Assessment: - The heart rate, respiratory rate, oxygen saturations, blood pressure, adequacy of pulmonary ventilation, and response to care were monitored throughout the procedure. The Endoscope was introduced through the mouth, and advanced to the jejunum. The upper GI endoscopy was accomplished without difficulty. The patient tolerated the procedure well. Findings: The examined esophagus was normal. Evidence of a Ever-en-Y gastrojejunostomy was found. The gastrojejunal anastomosis was characterized by healthy appearing mucosa. The examined jejunum was normal. Impression: - Normal esophagus. - Ever-en-Y gastrojejunostomy with gastrojejunal anastomosis characterized by healthy appearing mucosa. - Normal examined jejunum. - No specimens collected. - This exam is negative for bleeding source. Recommendation: - Observe patient's clinical course for another 24 hrs, monitor for bleeding. - Upper GI bleeding excluded. -- I presume polypectomy site from colonoscopy 12/30/19 as source. Hold Xarelto for 10 days. - Resume Xarelto (rivaroxaban) at prior dose in 10 days. Refer to referring physician for further adjustment of therapy. Gigi Lopez MD Gigi LOPEZ MD 01/14/2020 4:57:27 PM Electronically signed by Gigi LOPEZ MD Number of Addenda: 0 Note Initiated On: 01/14/2020 4:36 PM Estimated Blood Loss: Estimated blood loss: none.
[2020-01-14 18:14] LABS: HEMATOCRIT 29.8 % (36.0-47.0); HEMOGLOBIN 9.9 g/dl (12.0-15.5)
--- NOTE | 2020-01-14 18:52 | IPN ---
DATE: 01/14/2020 This is an addendum to my op report. Upon further discussion with the patient's city council member, Dr. Hdez, it was felt that a 10-day course of holding Xarelto is not a desirable situation. Therefore, it was decided to proceed with another colonoscopy to find the site of her polypectomy and apply Endo-Clips to prevent any further bleeding and hopefully able to shorten her Xarelto-free time interval. I discussed this with the patient. She is in agreement to proceed. I will plan on doing this on Friday morning, 01/16/2020. She will receive a prep tomorrow.
--- NOTE | 2020-01-14 21:13 | ECHO ---
DATE OF PROCEDURE: 01/14/2020 REFERRING PHYSICIAN: Dr Myra Pedro INDICATION: Dyspnea. HEIGHT: 5 feet 1 inch WEIGHT: 77 kg. 2D MEASUREMENTS: Aortic annulus: 2.0 cm Left atrium: 3.0 cm Aortic root: 3.1 cm Ventricular septum: 0.84 cm Posterior wall: 0.78 cm Left ventricle diastole: 5.0 cm Inferior vena cava: 1.6 cm (more than 50% respiratory variation). DOPPLER MEASUREMENTS: Aortic valve velocity: 132 cm/s LVOT velocity: 90.5 cm/s LVOT VTI: 19.8 cm No aortic regurgitation. No mitral regurgitation. Mitral E velocity: 79.0 cm/s Mitral A velocity: 91.2 cm/s Mitral deceleration time: 239 ms Mild tricuspid regurgitation. Estimated right ventricle systolic pressure: 26-31 mmHg assuming a right atrial pressure of 5-10 mmHg. Trace pulmonic regurgitation. Pulmonary artery systolic pressure: 141 cm/s MITRAL ANNULAR TISSUE DOPPLER: E prime septal: 6.96 cm/s E prime lateral: 6.42 cm/s DESCRIPTION: Rhythm was sinus. Image quality was adequate. No pericardial effusion. This was a 2D, M-mode, color flow Doppler and pulse wave Doppler examination and included mitral annular tissue Doppler. CONCLUSIONS: 1. Normal left ventricle internal dimensions and wall thickness. Normal regional left ventricular (LV) wall motion and wall thickening. Normal LV systolic function. Left ventricular ejection fraction (LVEF) 60% by visual estimate. Grade 1 LV diastolic dysfunction (impaired relaxation filling pattern). 2. Mild aortic valve sclerosis of a 3-cusp aortic valve. No aortic regurgitation. 3. Moderate mitral annular calcification. No mitral regurgitation or stenosis. 4. Suggestive of normal estimated right ventricle systolic pressure and pulmonary artery systolic pressure. Suggestive of normal central venous pressure. Normal right ventricle size and systolic function.
[2020-01-15] VITALS (7 sets, daily range): BP systolic 100–123; BP diastolic 59–68
[2020-01-15] MEDS: ACETAMINOPHEN TAB 650MG DOSE (2X325MG) PO PRN ×4 (00:12→21:57)
[2020-01-15 00:22] LABS: HEMATOCRIT 33.4 % (36.0-47.0); HEMOGLOBIN 10.4 g/dl (12.0-15.5)
[2020-01-15 06:44] LABS: HEMATOCRIT 29.5 % (36.0-47.0); HEMOGLOBIN 9.7 g/dl (12.0-15.5); MEAN CORPUSCULAR HEMOGLOBIN 28.1 pg (27.0-33.0); MEAN CORPUSCULAR HGB CONC 32.9 g/dl (32.0-36.5); MEAN CORPUSCULAR VOLUME 85.5 fl (80.0-96.0); PLATELET COUNT, AUTOMATED 157 10^3/uL (150-450); RED BLOOD COUNT 3.45 10^6/uL (4.00-5.40); WHITE BLOOD COUNT 4.2 10^3/uL (4.0-10.0)
[2020-01-15 07:05] LABS: BLOOD UREA NITROGEN 9 MG/DL (7-18); CARBON DIOXIDE LEVEL 25 MEQ/L (21-32); CHLORIDE LEVEL 115 MEQ/L (98-107); GLOMERULAR FILTRATION RATE > 60.0 (>51); GLUCOSE, FASTING 100 MG/DL (70-100); POTASSIUM SERUM 3.7 MEQ/L (3.5-5.1); SODIUM LEVEL 145 MEQ/L (136-145)
[2020-01-15] MEDS ORDERED: POLYETHYLENE GLYCOL (MIRALAX) 238GM BOTTLE PO ONE ×2 (08:00→17:00)
[2020-01-15] MEDS ORDERED: ONDANSETRON 4MG/2ML VIAL (J2405) IV PRN ×2 (08:30→08:45)
[2020-01-15] MEDS: PANTOPRAZOLE 40MG INJ (PROTONIX) (C9113) IV SCH (08:36)
[2020-01-15] MEDS: NS 1,000 ML IV SCH (09:21)
[2020-01-15] MEDS ORDERED: FLUTICASONE PROP 0.05% NASAL SPRAY 16 GM (FLONASE) NARES PRN (11:00)
[2020-01-15] MEDS ORDERED: IPRATROPIUM 0.5MG/ALBUTEROL 2.5MG INH SOL UD 3ML (DUONEB)(J7620) INH PRN (11:00)
[2020-01-15] MEDS ORDERED: SLF 3 ML SYR IV PRN (11:15)
[2020-01-15] MEDS ORDERED: METOCLOPRAMIDE INJ 10MG/2ML VIAL (J2765) As Ordered ONE (11:55)
[2020-01-15] MEDS: CYANOCOBALAMIN 500 MCG TAB PO SCH (12:00)
[2020-01-15] MEDS: ATORVASTATIN 20 MG TAB PO SCH (12:00)
[2020-01-15] MEDS: LORATADINE 10 MG TAB PO SCH (12:00)
[2020-01-15] MEDS: DIGOXIN 0.125 MG TAB PO SCH (12:00)
--- NOTE | 2020-01-15 12:18 | IPNPDOC ---
Subjective Date Seen The patient was seen on 01/15/20. Subjective Chief Complaint/HPI had black stool last night.\ reports continuous MARY also. initially was pounding, but now continuous. Eyes: Denies: Pain, Vision change ENT: Reports: Head Aches; Denies: Ear Pain, Dysphagia Skin: Denies: Rash Pulmonary: Denies: Dyspnea, Cough Cardiovascular: Denies: Chest Pain, Orthopnea Gastrointestinal: Denies: Nausea, Vomiting, Abdominal Pain Hematologic: Denies: Bruising Neurological: Denies: Weakness, Change in speech, Confusion Psych: Reports: Mood Normal Objective Physical Examination General Exam: Positive: Alert, No Acute Distress Neck Exam: Positive: Supple; Negative: JVD, thyromegaly Chest Exam: Positive: Clear to auscultation, Normal air movement Heart Exam: Positive: Rate Normal, Regular Rhythm, Normal S1, Normal S2; Negative: Murmurs, Rubs Telemetry: Positive: No significant arrhythmia Abdomen Exam: Positive: Soft; Negative: Tenderness Extremity Exam: Negative: Clubbing, Edema Skin Exam: Positive: Nl turgor and temperature; Negative: Rash Neuro Exam: Positive: Normal Speech Psych Exam: Positive: Mental status NL, Mood NL, Oriented x 3 Assessment /Plan Problems (1) Acute blood loss anemia Status: Acute Problem Text: 01/15: Hgb stable, stop q6 Hgb checks. upper endoscopy did not reveal source. will have colonoscopy tomorrow with plan to clip Bx sites so she can resume her Xarelto sooner. Improved hgb of 10 this am. (2) GI bleed Status: Acute Problem Specific Plan: Consult Specialist Problem Text: Dr. Lopez has consulted, see note in record. Planned EGD today. NS ordered for fluid support until after her EGD. (3) Paroxysmal atrial fibrillation Status: Chronic Response to Treatment: Stable Problem Text: 01/15: can resume usual Digoxin dose. Xarelto currently on hold due anemia, GIB (4) Diabetes mellitus Status: Chronic Response to Treatment: Stable Problem Text: metformin on hold. once able to take po will need RISS and diabetic diet. Plan/VTE VTE Prophylaxis Ordered?: No VTE Exclusion Pharmacological: Active Bleeding Plan Anticipated Discharge: Home VS, I&O, 24H, Fishbone Vital Signs/I&O Vital Signs Date Time Temp Pulse Resp B/P (MAP) Pulse Ox O2 Delivery O2 Flow Rate FiO2 01/15/20 12:00 72 01/15/20 08:00 97.1 18 102/59 (73) 97 Room Air I&O- Last 24 Hours up to 6 AM 01/15/20 06:00 Intake Total 780 ml Output Total 3800 ml Balance -3020 ml Laboratory Data 24H LABS Laboratory Tests 2 01/15/20 06:30: Nucleated Red Blood Cells % (auto) 0.0, Anion Gap 5L, Glomerular Filtration Rate > 60.0, Calcium Level 8.0L CBC/BMP Laboratory Tests 01/14/20 18:02 01/15/20 00:08 01/15/20 06:30 Luc Jenkins MD Jan 15, 2020 12:18
[2020-01-15] MEDS ORDERED: METOCLOPRAMIDE INJ 10MG/2ML VIAL (J2765) IV ONE (13:00)
[2020-01-15] MEDS: SLF 3 ML SYR IV SCH ×2 (14:16→21:46)
[2020-01-16] VITALS: BP 108/61
[2020-01-16] MEDS: ACETAMINOPHEN TAB 650MG DOSE (2X325MG) PO PRN (03:37)
[2020-01-16 04:00] VITALS: BP 103/62
[2020-01-16] MEDS: SLF 3 ML SYR IV SCH ×2 (05:40→14:00)
[2020-01-16 05:50] LABS: HEMATOCRIT 31.7 % (36.0-47.0); HEMOGLOBIN 10.4 g/dl (12.0-15.5); MEAN CORPUSCULAR HEMOGLOBIN 28.3 pg (27.0-33.0); MEAN CORPUSCULAR HGB CONC 32.8 g/dl (32.0-36.5); MEAN CORPUSCULAR VOLUME 86.1 fl (80.0-96.0); PLATELET COUNT, AUTOMATED 171 10^3/uL (150-450); RED BLOOD COUNT 3.68 10^6/uL (4.00-5.40); WHITE BLOOD COUNT 5.3 10^3/uL (4.0-10.0)
[2020-01-16 06:06] LABS: BLOOD UREA NITROGEN 5 MG/DL (7-18); CALCIUM LEVEL 8.2 MG/DL (8.5-10.1); CARBON DIOXIDE LEVEL 28 MEQ/L (21-32); CHLORIDE LEVEL 112 MEQ/L (98-107); CREATININE FOR GFR 0.41 MG/DL (0.55-1.30); GLOMERULAR FILTRATION RATE > 60.0 (>51); GLUCOSE, FASTING 123 MG/DL (70-100); POTASSIUM SERUM 3.4 MEQ/L (3.5-5.1); SODIUM LEVEL 144 MEQ/L (136-145)
[2020-01-16] MEDS: CYANOCOBALAMIN 500 MCG TAB PO SCH (07:51)
[2020-01-16] MEDS: DIGOXIN 0.125 MG TAB PO SCH (07:51)
[2020-01-16] MEDS: LORATADINE 10 MG TAB PO SCH (07:52)
[2020-01-16] MEDS: ATORVASTATIN 20 MG TAB PO SCH (07:52)
[2020-01-16 08:00] VITALS: BP 119/62
[2020-01-16] MEDS ORDERED: propofoL 200 MG/20 ML VIAL As Ordered ONE ×2 (10:51→11:28)
[2020-01-16] MEDS ORDERED: LIDOCAINE 2% INJ 100 MG/5 ML SDV (FOR ANES.) As Ordered ONE (10:51)
[2020-01-16] MEDS ORDERED: PHENYLephrine HCL 500 MCG/5 ML (100MCG/ML) SYRINGE (J2370) As Ordered ONE (11:28)
[2020-01-16] MEDS ORDERED: LR 1,000 ML IV SCH (11:45)
[2020-01-16] MEDS ORDERED: fentaNYL 100 MCG/2 ML INJECTION (J3010) IV PRN (11:45)
--- NOTE | 2020-01-16 11:45 | ROOR ---
Patient Name: Cordelia Pino Procedure Date: 01/16/2020 10:23 AM Date of : 1965 Age: 54 Room: Main OR Gender: Female Note Status: Finalized Procedure: Colonoscopy Indications: Therapeutic procedure, Melena, Acute post hemorrhagic anemia. (Colonoscopy with polypectomy 12/30/19- presumed polypectomy bleed in pt on anticoagulant) Providers: Gigi MIJARES MD Referring MD: 2. Inpatient 2. Inpatient, Chaz Ruiz MD Requesting Provider: Medicines: Monitored Anesthesia Care Complications: No immediate complications. Procedure: Pre-Anesthesia Assessment: - The heart rate, respiratory rate, oxygen saturations, blood pressure, adequacy of pulmonary ventilation, and response to care were monitored throughout the procedure. The Colonoscope was introduced through the anus and advanced to the cecum, identified by appendiceal orifice and ileocecal valve. The colonoscopy was performed without difficulty. The patient tolerated the procedure well. The quality of the bowel preparation was adequate. Findings: The perianal and digital rectal examinations were normal. A small post polypectomy scar was found in the ascending colon. The scar tissue was healthy in appearance. To prevent bleeding post-intervention, two hemostatic clips were successfully placed. A small post polypectomy scar was found in the distal transverse colon. Adjacent mucosal findings include congestion and hemorrhagic appearance. For hemostasis, three hemostatic clips were successfully placed. Impression: - Post-polypectomy scar in the ascending colon. Clips were placed. - Post-polypectomy scar in the distal transverse colon. Clips were placed. - No specimens collected. Recommendation: - Resume Xarelto (rivaroxaban) at prior dose tomorrow. - Resume regular diet. Gigi Mijares MD Gigi MIJARES MD 01/16/2020 11:45:15 AM Electronically signed by Gigi MIJARES MD Number of Addenda: 0 Note Initiated On: 01/16/2020 10:23 AM Estimated Blood Loss: Estimated blood loss: none.
[2020-01-16 12:00] VITALS: BP 117/63
[2020-01-16] MEDS ORDERED: POTASSIUM CHLORIDE 10 MEQ SR TABLET PO ONE (12:00)
[2020-01-16 12:04] VITALS: BP 112/59
--- NOTE | 2020-01-16 21:27 | DSES ---
DATE OF ADMISSION: 01/13/2020 DATE OF DISCHARGE: REASON FOR ADMISSION: The patient was transferred from [facility] where she was admitted for acute symptomatic anemia. She had episodes of lightheadedness, presyncope, chest discomfort and dyspnea while at work, seen in their emergency department (ED) with melanotic stools and diffuse abdominal cramping. Transferred here because of a profound anemia with hemoglobins initially noted to be 5.6. During hospital stay, she was transferred 4 units packed red cells and her hemoglobin has been stable and essentially unchanged, in fact, slowly rising since 01/14/2020. She underwent colonoscopy and upper endoscopy with Dr. Lopez. Upper endoscopy did not show any active lesions or bleeding. Therefore, colonoscopy was scheduled for this morning and she had to areas of recent biopsies, which were clipped so she can resume Xarelto sooner and otherwise would be doable. The colonoscopy report from Dr. Lopez indicates presence of two areas of previous biopsies, one situated in the ascending colon and two hemostatic were placed. In the distal transverse colon, there was evidence of congestion and hemorrhagic appearance, so three hemostatic clips were placed at this location, and Dr. Lopez indicates that it would be acceptable to resume Xarelto dosing in 24 hours, which will be tomorrow, 01/17/2020. PAST MEDICAL HISTORY: Includes: 1. Gastric bypass surgery for weight loss in 2014. 2. Screening colonoscopy had been done two weeks ago. 3. History of adenoma, in fact, high-grade dysplasia. 4. She had a history of nonalcoholic fatty liver disease. 5. Nephrolithiasis. 6. Obstructive sleep apnea (DONG), noncompliant with continuous positive airway pressure (C-PAP) . 7. History of paroxysmal atrial fibrillation, currently being treated with Xarelto. At this point, she is ready for discharge. She is stable. She is not having any lightheadedness or chest pain or palpitations and no recurrent bleeding. DISCHARGE DIAGNOSES: 1. Profound anemia associated with bleeding from colon biopsy site, now status post placement of hemostatic clips to prevent recurrent bleeding. 2. Upper endoscopy showing only post gastric bypass changes. 3. Paroxysmal atrial fibrillation requiring prophylaxis therapy to prevent reduced risk for stroke. PLAN: She will resume her usual medications as of discharge date. She will resume Xarelto tomorrow. Her usual medications include: - Tylenol with codeine No. 3 as needed for pain 1 tablet - atorvastatin 20 mg daily at bedtime - Biotin 5000 mcg daily - calcium with vitamin D 1 capsule twice a day - vitamin D 5000 units daily - clobetasol propionate to itchy rash twice a day as needed - vitamin B12 500 mcg daily - diclofenac 1.5% drops 40 drops to painful joint areas as needed for pain - Digoxin 125 mcg by mouth daily - fluticasone nasal spray 2 sprays each nostril daily as needed for congestion - Combivent Respimat 1 inhalation four times a day as needed for wheezing - loratadine 10 mg by mouth daily - magnesium hydroxide - Milk of Magnesia as needed for constipation - magnesium oxide 40 mg by mouth daily - metformin 500 mg by mouth twice a day for diabetes - multivitamin 2 daily - fish oil capsules 2000 mg daily - ondansetron 4 mg every 6 hours as needed for nausea or vomiting - MiraLax powder as needed for constipation - Xarelto 20 mg daily, which she will not resume until tomorrow. Activity will be as tolerated, but she is advised not to resume work until she follows up with her primary care provider (PCP). She has an appointment on 01/19/2020 for followup, currently scheduled with Ms. Spears. Diet will be to resume her usual diabetic and 2 gram sodium restricted diet restricting.
== END 2020-01-16 15:45 | disposition home or self-care (01) | DRG 813 ==
LOC: M MSPAV 16:54 → M ICU 19:10 → M PCU 01-15 01:35
PROVIDERS: ADMIT Internal Medicine; ATTEND Family Medicine
PROC: 30233N1 Transfusion of Nonautologous Red Blood Cells into Peripheral Vein, Percutaneous Approach (ICD-10-PCS; 2020-01-13)
PROC: 0DJ08ZZ Inspection of Upper Intestinal Tract, Via Natural or Artificial Opening Endoscopic (ICD-10-PCS; 2020-01-14)
PROC: 0W3P8ZZ Control Bleeding in Gastrointestinal Tract, Via Natural or Artificial Opening Endoscopic (ICD-10-PCS; principal; 2020-01-16 08:30)
DX: K91.840 Postprocedural hemorrhage of a digestive system organ or structure following a digestive system procedure (principal); I48.0 Paroxysmal atrial fibrillation; K76.0 Fatty (change of) liver, not elsewhere classified; E11.9 Type 2 diabetes mellitus without complications; J44.9 Chronic obstructive pulmonary disease, unspecified; Z98.84 Bariatric surgery status; G47.33 Obstructive sleep apnea (adult) (pediatric); Z91.19 Patient's noncompliance with other medical treatment and regimen; Z79.01 Long term (current) use of anticoagulants; Z79.899 Other long term (current) drug therapy; K57.30 Diverticulosis of large intestine without perforation or abscess without bleeding; E78.5 Hyperlipidemia, unspecified; Z87.891 Personal history of nicotine dependence; D62 Acute posthemorrhagic anemia

== ENCOUNTER → 2020-01-19 | Outpatient (REF) | payer BC ==
[~2020-01-19] MED LIST changes: +TYLETAB14 PO
[2020-01-19 15:59] LABS: BASO # 0.1 10^3/uL (0.0-0.2); BASO % 0.9 % (0.0-1.0); EOS # 0.2 10^3/uL (0.0-0.5); HEMATOCRIT 33.3 % (36.0-47.0); HEMOGLOBIN 10.4 g/dl (12.0-15.5); LYMPH # 2.4 10^3/uL (1.5-5.0); LYMPH % 35.1 % (24.0-44.0); MEAN CORPUSCULAR HEMOGLOBIN 28.1 pg (27.0-33.0); MEAN CORPUSCULAR HGB CONC 31.2 g/dl (32.0-36.5); MONO # 0.6 10^3/uL (0.0-0.8); MONO % 8.2 % (0.0-5.0); NEUTROPHILS # 3.5 10^3/uL (1.5-8.5); NEUTROPHILS % 52.5 % (36.0-66.0); PLATELET COUNT, AUTOMATED 291 10^3/uL (150-450); WHITE BLOOD COUNT 6.7 10^3/uL (4.0-10.0)
[2020-01-19 16:41] LABS: ALBUMIN 3.5 GM/DL (3.2-5.2); ALT/SGPT 23 U/L (12-78); BILIRUBIN,TOTAL 0.4 MG/DL (0.2-1.0); BLOOD UREA NITROGEN 9 MG/DL (7-18); CARBON DIOXIDE LEVEL 29 MEQ/L (21-32); CHLORIDE LEVEL 109 MEQ/L (98-107); CREATININE FOR GFR 0.56 MG/DL (0.55-1.30); DIGOXIN LEVEL 0.4 NG/ML (0.5-2.0); GLOMERULAR FILTRATION RATE > 60.0 (>51); GLUCOSE, FASTING 75 MG/DL (70-100); SODIUM LEVEL 143 MEQ/L (136-145); TOTAL PROTEIN 6.4 GM/DL (6.4-8.2)
== END ==
LOC: M SFHCPLAZ 15:17
PROVIDERS: ATTEND Physician Assistant Medical
DX: D64.9 Anemia, unspecified (principal); I48.0 Paroxysmal atrial fibrillation; K92.1 Melena

== ENCOUNTER → 2020-01-27 | Outpatient (CLI) | payer BC ==
--- NOTE | 2020-01-31 10:31 | HOLTMON ---
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 MULTIPLE DIARY ENTRIES WITH VARIOUS COMPLQAINTS OF SOB,CHEST PAIN DIZZINESS ETC WITHOUT FINDINGS. NO SIGNIFICANT ST DEVIATION. MAX QTC 480MS. OVERALL IMPRESSION BENIGN HOLTER Electronically Signed on 01-31-2020 10:31:49 EDT by Britt Degroot
== END ==
LOC: M EKG 12:01
PROVIDERS: ATTEND Physician Assistant Medical
DX: I48.0 Paroxysmal atrial fibrillation (principal)

== ENCOUNTER → 2020-02-22 | Outpatient (REF) | payer BC ==
[2020-02-22 13:48] LABS: BASO # 0.1 10^3/uL (0.0-0.2); EOS # 0.2 10^3/uL (0.0-0.5); EOS % 3.3 % (0.0-3.0); HEMATOCRIT 33.8 % (36.0-47.0); HEMOGLOBIN 10.3 g/dl (12.0-15.5); LYMPH # 2.3 10^3/uL (1.5-5.0); LYMPH % 40.1 % (24.0-44.0); MEAN CORPUSCULAR HGB CONC 30.5 g/dl (32.0-36.5); MEAN CORPUSCULAR VOLUME 85.4 fl (80.0-96.0); MONO # 0.5 10^3/uL (0.0-0.8); MONO % 8.6 % (0.0-5.0); NEUTROPHILS # 2.7 10^3/uL (1.5-8.5); NEUTROPHILS % 46.7 % (36.0-66.0); PLATELET COUNT, AUTOMATED 323 10^3/uL (150-450); RED BLOOD COUNT 3.96 10^6/uL (4.00-5.40); WHITE BLOOD COUNT 5.8 10^3/uL (4.0-10.0)
[2020-02-22 14:03] LABS: ALBUMIN 3.5 GM/DL (3.2-5.2); ALT/SGPT 23 U/L (12-78); BILIRUBIN,TOTAL 0.6 MG/DL (0.2-1.0); BLOOD UREA NITROGEN 11 MG/DL (7-18); CALCIUM LEVEL 8.9 MG/DL (8.5-10.1); CARBON DIOXIDE LEVEL 28 MEQ/L (21-32); CHLORIDE LEVEL 108 MEQ/L (98-107); CHOLESTEROL LEVEL 120 MG/DL (<200); CHOLESTEROL RISK RATIO 2.105 (<5); CREATININE FOR GFR 0.57 MG/DL (0.55-1.30); FREE T4 0.94 NG/DL (0.76-1.46); GLOMERULAR FILTRATION RATE > 60.0 (>51); GLUCOSE, FASTING 113 MG/DL (70-100); HDL CHOLESTEROL 57 MG/DL (>40); LDL CHOLESTEROL 48 MG/DL (<100); NON-HDL-C 63 MG/DL; POTASSIUM SERUM 4.1 MEQ/L (3.5-5.1); SODIUM LEVEL 140 MEQ/L (136-145); TOTAL 25(OH) VITAMIN D 44.2 NG/ML (30.0-100.0); TOTAL PROTEIN 6.7 GM/DL (6.4-8.2); TRIGLYCERIDES LEVEL 75 MG/DL (<150)
[2020-02-22 14:04] LABS: PTH INTACT 121.8 PG/ML (18.5-88.0); VITAMIN B12 LEVEL 866 PG/ML (247-911)
[2020-02-22 14:07] LABS: HEMOGLOBIN A1c 7.1 %
== END ==
LOC: M SFHCPLAZ 10:07
PROVIDERS: ATTEND Family Medicine
DX: E78.2 Mixed hyperlipidemia (principal); E55.9 Vitamin D deficiency, unspecified; E11.8 Type 2 diabetes mellitus with unspecified complications; I48.0 Paroxysmal atrial fibrillation

== ENCOUNTER → 2020-02-25 | Outpatient (REF) | payer BC ==
[2020-02-25 13:42] LABS: APPEARANCE, URINE CLEAR (CLEAR); BACTERIA, URINE AUTO NEGATIVE (NEGATIVE); BILIRUBIN, URINE AUTO NEGATIVE (NEGATIVE); BLOOD, URINE BLOOD NEGATIVE (NEGATIVE); COLOR, URINE YELLOW (YELLOW); GLUCOSE, URINE (UA) AUTO 1+ mg/dL (NEGATIVE); KETONE, URINE AUTO NEGATIVE (NEGATIVE); LEUKOCYTE ESTERASE, URINE AUTO NEGATIVE (NEGATIVE); MUCUS, URINE SMALL (NEGATIVE); NITRITE, URINE AUTO NEGATIVE (NEGATIVE); PROTEIN, URINE AUTO NEGATIVE (NEGATIVE); RBC, URINE AUTO 1 /HPF (0-3); SPECIFIC GRAVITY URINE AUTO 1.016 (1.002-1.035); SQUAMOUS EPITHELIAL CELL UR AU 0 /HPF (0-6); WBC, URINE AUTO 4 /HPF (0-3)
[2020-02-25 13:46] LABS: BASO # 0.1 10^3/uL (0.0-0.2); BASO % 1.3 % (0.0-1.0); EOS # 0.1 10^3/uL (0.0-0.5); EOS % 2.5 % (0.0-3.0); HEMATOCRIT 32.4 % (36.0-47.0); HEMOGLOBIN 9.9 g/dl (12.0-15.5); LYMPH # 2.1 10^3/uL (1.5-5.0); LYMPH % 43.4 % (24.0-44.0); MEAN CORPUSCULAR HEMOGLOBIN 25.9 pg (27.0-33.0); MEAN CORPUSCULAR HGB CONC 30.6 g/dl (32.0-36.5); MEAN CORPUSCULAR VOLUME 84.8 fl (80.0-96.0); MONO # 0.4 10^3/uL (0.0-0.8); MONO % 9.2 % (0.0-5.0); NEUTROPHILS # 2.1 10^3/uL (1.5-8.5); NEUTROPHILS % 43.4 % (36.0-66.0); PLATELET COUNT, AUTOMATED 302 10^3/uL (150-450); RED BLOOD COUNT 3.82 10^6/uL (4.00-5.40); WHITE BLOOD COUNT 4.8 10^3/uL (4.0-10.0)
[2020-02-25 13:54] LABS: ALBUMIN 3.6 GM/DL (3.2-5.2); ALT/SGPT 21 U/L (12-78); BILIRUBIN,TOTAL 0.5 MG/DL (0.2-1.0); BLOOD UREA NITROGEN 10 MG/DL (7-18); CALCIUM LEVEL 9.1 MG/DL (8.5-10.1); CARBON DIOXIDE LEVEL 25 MEQ/L (21-32); CHLORIDE LEVEL 110 MEQ/L (98-107); CREATININE FOR GFR 0.51 MG/DL (0.55-1.30); GLOMERULAR FILTRATION RATE > 60.0 (>51); GLUCOSE, FASTING 112 MG/DL (70-100); MAGNESIUM LEVEL 2.2 MG/DL (1.8-2.4); SODIUM LEVEL 139 MEQ/L (136-145); TOTAL PROTEIN 6.8 GM/DL (6.4-8.2)
[2020-02-25 14:00] LABS: CREATININE, URINE 81.1 MG/DL; MALB URINE SIEMENS 29.9 MG/L; MAU/CREAT RATIO 36.8 MCG/MG (0.0-30.0)
[2020-02-25 14:04] LABS: HEMOGLOBIN A1c 7.1 %
== END ==
LOC: M SFHCPLAZ 10:19
PROVIDERS: ATTEND Family Medicine
DX: D50.9 Iron deficiency anemia, unspecified (principal); E78.2 Mixed hyperlipidemia; E11.8 Type 2 diabetes mellitus with unspecified complications

== ENCOUNTER → 2020-03-10 | Outpatient (CLI) | payer BC | LOC: M LABSMTC 10:00 | PROVIDERS: ATTEND Family Medicine | DX: Z11.59 Encounter for screening for other viral diseases (principal); Z20.828 Contact with and (suspected) exposure to other viral communicable diseases ==

== ENCOUNTER → 2020-06-29 | Outpatient (CLI) | payer BC ==
--- NOTE | 2020-08-15 07:07 | REP ---
RENAL ULTRASOUND: HISTORY: Obstructive uropathy. FINDINGS: Real time sonographic evaluation of the kidneys is performed. The kidneys are normal in size and echotexture, the right kidney measuring 12.4 x 5.9 x 4.4 cm and the left kidney 11.6 x 6.3 x 5.6 cm. There is no hydronephrosis bilaterally. There is slight caliectasis of the upper and mid-right kidney. No definite renal stones are seen. The urinary bladder is mildly distended and grossly unremarkable. IMPRESSION: No overt hydronephrosis with mild caliectasis of the upper right kidney. MTDD
== END ==
LOC: M RAD 12:14
PROVIDERS: ATTEND Specialist
DX: N13.9 Obstructive and reflux uropathy, unspecified (principal)

== ENCOUNTER 2020-07-07 05:10 | Inpatient (IN) | payer BC ==
[2020-07-07] MEDS ORDERED: MECLIZINE 25 MG TABLET ONE (05:35)
[2020-07-07] MEDS ORDERED: MECLIZINE 25 MG TABLET As Ordered ONE (05:35)
[2020-07-07] MEDS ORDERED: PANTOPRAZOLE 40MG VIAL (C9113 PER 1) As Ordered ONE ×2 (15:16→21:20)
[2020-07-07] MEDS ORDERED: SUCRALFATE 1 GM TAB ONE ×2 (15:16→21:19)
[2020-07-07] MEDS ORDERED: SUCRALFATE 1 GM TAB As Ordered ONE ×2 (15:16→21:20)
[2020-07-07] MEDS ORDERED: PANTOPRAZOLE 40MG VIAL (C9113 PER 1) ONE ×2 (15:16→21:19)
[2020-07-07] MEDS ORDERED: OCTREOTIDE ACETATE 100MCG/ML VIAL (J2354 PER 25MCG) As Ordered ONE (15:21)
[2020-07-07] MEDS ORDERED: OCTREOTIDE ACETATE 100MCG/ML VIAL (J2354 PER 25MCG) ONE (15:21)
[2020-07-07] MEDS ORDERED: ACETAMINOPHEN 325 MG TAB ONE (16:30)
[2020-07-07] MEDS ORDERED: ACETAMINOPHEN 325 MG TAB As Ordered ONE (16:30)
[2020-07-07] MEDS ORDERED: ATORVASTATIN 20 MG TAB As Ordered ONE (21:19)
[2020-07-07] MEDS ORDERED: ACETAMINOPHEN TAB 650MG DOSE (2X325MG) ONE (21:19)
[2020-07-07] MEDS ORDERED: ATORVASTATIN 20 MG TAB ONE (21:19)
[2020-07-07] MEDS ORDERED: ACETAMINOPHEN TAB 650MG DOSE (2X325MG) As Ordered ONE (21:20)
[2020-07-08] MEDS ORDERED: OCTREOTIDE ACETATE 100MCG/ML VIAL (J2354 PER 25MCG) ONE (01:02)
[2020-07-08] MEDS ORDERED: OCTREOTIDE ACETATE 100MCG/ML VIAL (J2354 PER 25MCG) As Ordered ONE (01:02)
[2020-07-08] MEDS ORDERED: ACETAMINOPHEN TAB 650MG DOSE (2X325MG) ONE (04:46)
[2020-07-08] MEDS ORDERED: ACETAMINOPHEN TAB 650MG DOSE (2X325MG) As Ordered ONE (04:46)
[2020-07-08] MEDS ORDERED: DIGOXIN 0.125 MG TAB ONE (09:14)
[2020-07-08] MEDS ORDERED: DIGOXIN 0.125 MG TAB As Ordered ONE (09:14)
[2020-07-08] MEDS ORDERED: ONDANSETRON 4MG/2ML VIAL As Ordered ONE ×2 (13:17→18:36)
[2020-07-08] MEDS ORDERED: ONDANSETRON 4MG/2ML VIAL ONE ×2 (13:17→18:36)
[2020-07-08] MEDS ORDERED: ATORVASTATIN 20 MG TAB ONE (21:05)
[2020-07-08] MEDS ORDERED: SUCRALFATE 1 GM TAB ONE (21:05)
[2020-07-08] MEDS ORDERED: PANTOPRAZOLE 40MG VIAL (C9113 PER 1) ONE (21:05)
[2020-07-08] MEDS ORDERED: ATORVASTATIN 20 MG TAB As Ordered ONE (21:05)
[2020-07-08] MEDS ORDERED: PANTOPRAZOLE 40MG VIAL (C9113 PER 1) As Ordered ONE (21:06)
[2020-07-08] MEDS ORDERED: SUCRALFATE 1 GM TAB As Ordered ONE (21:06)
[2020-07-09] MEDS ORDERED: OCTREOTIDE ACETATE 100MCG/ML VIAL (J2354 PER 25MCG) As Ordered ONE
[2020-07-09] MEDS ORDERED: ACETAMINOPHEN TAB 650MG DOSE (2X325MG) ONE ×2 (00:02→07:53)
[2020-07-09] MEDS ORDERED: ACETAMINOPHEN TAB 650MG DOSE (2X325MG) As Ordered ONE ×2 (00:02→07:53)
[2020-07-09] MEDS ORDERED: DIGOXIN 0.125 MG TAB ONE (07:53)
[2020-07-09] MEDS ORDERED: DIGOXIN 0.125 MG TAB As Ordered ONE (07:53)
[2020-07-09] MEDS ORDERED: OCTREOTIDE ACETATE 100MCG/ML VIAL (J2354 PER 25MCG) ONE (12:00)
[2020-07-09] MEDS ORDERED: ONDANSETRON 4MG/2ML VIAL As Ordered ONE (13:14)
[2020-07-09] MEDS ORDERED: ONDANSETRON 4MG/2ML VIAL ONE (13:14)
[2020-07-09] MEDS ORDERED: METOCLOPRAMIDE INJ 10MG/2ML VIAL (J2765 PER 1) As Ordered ONE (15:49)
[2020-07-09] MEDS ORDERED: METOCLOPRAMIDE INJ 10MG/2ML VIAL (J2765 PER 1) ONE (15:49)
[2020-07-09] MEDS ORDERED: PANTOPRAZOLE 40MG VIAL (C9113 PER 1) ONE (20:33)
[2020-07-09] MEDS ORDERED: ATORVASTATIN 20 MG TAB As Ordered ONE (20:33)
[2020-07-09] MEDS ORDERED: SUCRALFATE 1 GM TAB ONE (20:33)
[2020-07-09] MEDS ORDERED: ATORVASTATIN 20 MG TAB ONE (20:33)
[2020-07-09] MEDS ORDERED: SUCRALFATE 1 GM TAB As Ordered ONE (20:34)
[2020-07-09] MEDS ORDERED: PANTOPRAZOLE 40MG VIAL (C9113 PER 1) As Ordered ONE (20:34)
[2020-07-10] MEDS ORDERED: OCTREOTIDE ACETATE 100MCG/ML VIAL (J2354 PER 25MCG) ONE (00:51)
[2020-07-10] MEDS ORDERED: OCTREOTIDE ACETATE 100MCG/ML VIAL (J2354 PER 25MCG) As Ordered ONE ×4 (00:51→23:04)
[2020-07-10] MEDS ORDERED: ACETAMINOPHEN TAB 650MG DOSE (2X325MG) ONE (06:11)
[2020-07-10] MEDS ORDERED: ACETAMINOPHEN TAB 650MG DOSE (2X325MG) As Ordered ONE (06:11)
[2020-07-10] MEDS ORDERED: SUCRALFATE 1 GM TAB As Ordered ONE ×2 (08:01→20:38)
[2020-07-10] MEDS ORDERED: PANTOPRAZOLE 40MG VIAL (C9113 PER 1) As Ordered ONE ×2 (08:01→20:38)
[2020-07-10] MEDS ORDERED: DIGOXIN 0.125 MG TAB As Ordered ONE (08:01)
[2020-07-10] MEDS ORDERED: E-Z-PAQUE 96% w/w SUSP 176GM BTL As Ordered ONE (10:26)
[2020-07-10] MEDS ORDERED: E-Z-GAS II EFFERVESCENT PACKET (SODIUM BICARB./CITRIC ACID/SIMETHICONE) As Ordered ONE (10:26)
[2020-07-10] MEDS ORDERED: E-Z-HD 98% w/w 340GM SUSP BTL As Ordered ONE (10:26)
[2020-07-10] MEDS ORDERED: ATORVASTATIN 20 MG TAB As Ordered ONE (20:38)
[2020-07-10] MEDS ORDERED: SUCRALFATE 1 GM TAB ONE (20:38)
[2020-07-11] MEDS ORDERED: ACETAMINOPHEN TAB 650MG DOSE (2X325MG) As Ordered ONE (04:36)
[2020-07-11] MEDS ORDERED: ACETAMINOPHEN TAB 650MG DOSE (2X325MG) ONE (04:36)
[2020-07-11] MEDS ORDERED: SUCRALFATE 1 GM TAB As Ordered ONE ×2 (08:48→12:35)
[2020-07-11] MEDS ORDERED: OCTREOTIDE ACETATE 100MCG/ML VIAL (J2354 PER 25MCG) As Ordered ONE (08:49)
[2020-07-11] MEDS ORDERED: PANTOPRAZOLE 40MG VIAL (C9113 PER 1) As Ordered ONE (08:49)
[2020-07-11] MEDS ORDERED: DIGOXIN 0.125 MG TAB As Ordered ONE (08:52)
[2020-07-15 23:20] LABS: BLOOD UREA NITROGEN 8 MG/DL (7-18); CALCIUM LEVEL 8.7 MG/DL (8.5-10.1); CARBON DIOXIDE LEVEL 29 MEQ/L (21-32); CHLORIDE LEVEL 110 MEQ/L (98-107); CREATININE FOR GFR 0.45 MG/DL (0.55-1.30); GLOMERULAR FILTRATION RATE > 60.0 (>51); GLUCOSE, FASTING 102 MG/DL (70-100); MAGNESIUM LEVEL 1.9 MG/DL (1.8-2.4); POTASSIUM SERUM 3.7 MEQ/L (3.5-5.1); SODIUM LEVEL 145 MEQ/L (136-145)
[2020-07-16 16:50] LABS: HEMATOCRIT 32.8 % (36.0-47.0); HEMOGLOBIN 9.5 g/dl (12.0-15.5); MEAN CORPUSCULAR HEMOGLOBIN 21.3 pg (27.0-33.0); MEAN CORPUSCULAR VOLUME 73.7 fl (80.0-96.0); PLATELET COUNT, AUTOMATED 281 10^3/uL (150-450); RED BLOOD COUNT 4.45 10^6/uL (4.00-5.40); WHITE BLOOD COUNT 5.4 10^3/uL (4.0-10.0)
[2020-07-16 23:39] LABS: APPEARANCE, URINE MANUAL HAZY (CLEAR); COLOR, URINE MANUAL YELLOW (YELLOW); GLUCOSE, URINE (UA) MANUAL NEGATIVE (NEGATIVE); KETONE, URINE MANUAL 2+ mg/dL (NEGATIVE); PROTEIN, URINE MANUAL NEGATIVE (NEGATIVE); SPECIFIC GRAVITY,URINE MANUAL 1.025 (1.002-1.035)
[2020-07-16 23:40] LABS: BILIRUBIN, URINE MANUAL NEGATIVE (NEGATIVE); BLOOD URINE MANUAL NEGATIVE (NEGATIVE); LEUKOCYTE ESTERASE, URINE MAN TRACE (NEGATIVE); NITRITE, URINE MANUAL NEGATIVE (NEGATIVE); UROBILINOGEN, URINE MANUAL NORMAL (NORMAL)
[2020-07-16 23:41] LABS: BACTERIA, URINE SMALL AMOUNT; HYALINE CAST, URINE NONE SEEN /lpf (0-1); RBC, URINE 0-1 /hpf (0-3); SQUAMOUS EPITHELIAL CELL URINE SMALL AMOUNT /hpf (SMALL AMT)
[2020-07-16 23:43] LABS: AMORPHOUS SEDIMENT, URINE SMALL AMOUNT (NEGATIVE); MUCUS, URINE LARGE AMOUNT (NEGATIVE)
[2020-07-16 23:45] LABS: HEMATOCRIT 30.9 % (36.0-47.0); HEMOGLOBIN 9.2 g/dl (12.0-15.5); MEAN CORPUSCULAR HEMOGLOBIN 21.5 pg (27.0-33.0); MEAN CORPUSCULAR HGB CONC 29.8 g/dl (32.0-36.5); MEAN CORPUSCULAR VOLUME 72.4 fl (80.0-96.0); PLATELET COUNT, AUTOMATED 298 10^3/uL (150-450); RED BLOOD COUNT 4.27 10^6/uL (4.00-5.40); WHITE BLOOD COUNT 5.7 10^3/uL (4.0-10.0)
[2020-07-16 23:45] LABS: HEMATOCRIT 31.7 % (36.0-47.0); HEMOGLOBIN 9.3 g/dl (12.0-15.5); MEAN CORPUSCULAR HEMOGLOBIN 21.4 pg (27.0-33.0); MEAN CORPUSCULAR HGB CONC 29.3 g/dl (32.0-36.5); MEAN CORPUSCULAR VOLUME 72.9 fl (80.0-96.0); PLATELET COUNT, AUTOMATED 292 10^3/uL (150-450); RED BLOOD COUNT 4.35 10^6/uL (4.00-5.40); WHITE BLOOD COUNT 4.3 10^3/uL (4.0-10.0)
[2020-07-16 23:54] LABS: HEMATOCRIT 31.3 % (36.0-47.0); HEMOGLOBIN 9.2 g/dl (12.0-15.5); MEAN CORPUSCULAR HEMOGLOBIN 21.5 pg (27.0-33.0); MEAN CORPUSCULAR HGB CONC 29.4 g/dl (32.0-36.5); MEAN CORPUSCULAR VOLUME 73.1 fl (80.0-96.0); PLATELET COUNT, AUTOMATED 294 10^3/uL (150-450); RED BLOOD COUNT 4.28 10^6/uL (4.00-5.40); WHITE BLOOD COUNT 7.3 10^3/uL (4.0-10.0)
--- NOTE | 2020-08-09 14:28 | ECGEPIP ---
SINUS RHYTHM INCOMPLETE RIGHT BUNDLE BRANCH BLOCK NONSPECIFIC T-WAVE ABNORMALITY BORDERLINE ECG SEE SCANNED DOWNTIME REPORT MTDD
--- NOTE | 2020-08-15 07:05 | REP ---
RADIONUCLIDE GASTROINTESTINAL BLEEDING SCINTIGRAPHY HISTORY: Gastrointestinal bleeding. TECHNIQUE: 27.1 mCi of Technetium-99m tagged RBC radionuclide Ultratag is administered. Sequential anterior abdominal flow and sequential 5 minute images are acquired for one hour imaging interval. SCINTIGRAPHIC FINDINGS: Normal blood pool radionuclide uptake is seen. Normal hepatic and splenic uptake is observed and some renal bed perfusion is seen. No gastrointestinal bleeding site is observation. IMPRESSION: Negative radionuclide gastrointestinal bleeding scan. No bleeding site is observed. MTDD
--- NOTE | 2020-08-15 07:11 | REP ---
UPPER GI SINGLE CONTRAST AND SMALL BOWEL FOLLOW-THROUGH The procedure was performed under the direct supervision of Dr. Odom. The images were reviewed with Dr. Odom. The scouts film shows no organomegaly or pathological masses. The intestinal gas pattern is nonspecific. Liquid barium was given in the erect and prone oblique positions in order to perform a single contrast upper GI examination. Additionally, liquid barium was given at the end of the examination in order to perform a small bowel follow- through. The oral and pharyngeal stages of deglutition are unremarkable. Esophageal transport is prompt and efficient and there is no esophagitis, stricture, mucosal ring, or hiatal hernia. Gastroesophageal reflux is not demonstrated on this examination. There are postsurgical changes of the stomach consistent with the patients history of lane-en-Y gastric bypass. Contrast passes through the stomach and anastomosis without delay. There is no evidence of gastritis, neoplasm, or ulcer disease. There is no evidence of stricture or obstruction. The visualized portion of the proximal small bowel appears normal in course and caliber. The barium column was followed through the small to the level of the terminal ileum. Small bowel transit time is delayed as there is contrast seen in the right colon at the 9.5 hour film. IMPRESSION: Postsurgical changes of the stomach consistent with the patients history of lane-en-Y gastric bypass. The stomach is otherwise unremarkable. Small bowel transit time is delayed as there is contrast seen in the cecum at the 9.5 hour film. 1.6 minutes of fluoroscopy time was utilized for this procedure. [facility]
--- NOTE | 2020-08-15 11:49 | ECGEPIP ---
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
[2020-08-21 10:45] LABS: BASO # 0.1 10^3/uL (0.0-0.2); BASO % 0.9 % (0.0-1.0); EOS # 0.1 10^3/uL (0.0-0.5); EOS % 2.1 % (0.0-3.0); HEMATOCRIT 30.9 % (36.0-47.0); HEMOGLOBIN 8.9 g/dl (12.0-15.5); LYMPH # 1.4 10^3/uL (1.5-5.0); MEAN CORPUSCULAR HEMOGLOBIN 20.5 pg (27.0-33.0); MEAN CORPUSCULAR HGB CONC 28.8 g/dl (32.0-36.5); MEAN CORPUSCULAR VOLUME 71.2 fl (80.0-96.0); MONO # 0.5 10^3/uL (0.0-0.8); MONO % 6.6 % (0.0-5.0); NEUTROPHILS # 4.7 10^3/uL (1.5-8.5); PLATELET COUNT, AUTOMATED 315 10^3/uL (150-450); RED BLOOD COUNT 4.34 10^6/uL (4.00-5.40); WHITE BLOOD COUNT 6.8 10^3/uL (4.0-10.0)
[2020-08-21 10:49] LABS: HEMATOCRIT 26.6 % (36.0-47.0); HEMOGLOBIN 7.8 g/dl (12.0-15.5); MEAN CORPUSCULAR HEMOGLOBIN 20.9 pg (27.0-33.0); MEAN CORPUSCULAR HGB CONC 29.3 g/dl (32.0-36.5); MEAN CORPUSCULAR VOLUME 71.3 fl (80.0-96.0); PLATELET COUNT, AUTOMATED 298 10^3/uL (150-450); RED BLOOD COUNT 3.73 10^6/uL (4.00-5.40); WHITE BLOOD COUNT 6.2 10^3/uL (4.0-10.0)
[2020-08-21 11:32] LABS: INR 0.99; PARTIAL THROMBOPLASTIN TIME 27.1 SECONDS (24.2-38.5); PROTHROMBIN TIME 13.3 SECONDS (12.5-14.3)
--- NOTE | 2020-09-01 16:05 | ECHO ---
DATE OF PROCEDURE: 07/07/2020 Age: 54 years Height: 61 inches Weight: 156 pounds Body surface area: 1.69 sq. m. Inpatient - Progressive Care Unit (PCU) room 3212 REFERRING PHYSICIAN: Travon Smallwood MD INDICATION: Recurrent syncope. MEASUREMENTS: 2D Measurements: RV - 3.6 cm LV - 4.4 cm Septum 1.1 cm Posterior wall 1.1 cm Aortic Root 3.1 cm LA - 3.8 cm LVEF 75% Doppler Measurements: AV - 1.4 m/s LVOT - 0.93 m/s LVOT diameter 2.0 cm MV-E 125, A 122, E/A ratio 1 Early mitral deceleration time 268 ms E prime medial 8.8, A prime medial 10.2, E prime lateral 9 Average E/E prime ratio 14/PCWP 19 mmHg PV -0.75 m/s Pulmonary artery acceleration time 127 ms PASP 26 mmHg IVC - 1.7 cm COMMENTS: Normal sinus rhythm at 60 beats per minute. No intraventricular conduction disturbance. M-Mode and two-dimensional echocardiography was performed with pulsed, continuous wave, color flow, and tissue Doppler studies. Normal left ventricular size, wall thickness, and hyperkinetic wall motion. Borderline left atrial enlargement with degree of left ventricular (LV) diastolic dysfunction with prolonged early mitral deceleration time and tissue Doppler evidence of left atrial pressure upper limits of normal to slightly increased. Normal right heart chamber sizes and motion and current estimated pulmonary arterial pressure. Normal inferior vena cava (IVC) size and collapse against an elevated central venous pressure. Normal aortic dimensions. Slightly sclerotic aortic valve without functional abnormality. Mild mitral annular thickening without functional valvular abnormality. Normal appearing tricuspid valve and function. No apparent intracardiac mass or pericardial effusion. No apparent structural or functional abnormality to predispose to syncope. MTDD
[2020-09-02 19:31] LABS: HEMATOCRIT 29.7 % (36.0-47.0); HEMOGLOBIN 8.7 g/dl (12.0-15.5); MEAN CORPUSCULAR HEMOGLOBIN 21.2 pg (27.0-33.0); MEAN CORPUSCULAR HGB CONC 29.3 g/dl (32.0-36.5); MEAN CORPUSCULAR VOLUME 72.4 fl (80.0-96.0); PLATELET COUNT, AUTOMATED 283 10^3/uL (150-450); WHITE BLOOD COUNT 5.6 10^3/uL (4.0-10.0)
[2020-09-02 19:31] LABS: HEMATOCRIT 32.4 % (36.0-47.0); HEMOGLOBIN 9.5 g/dl (12.0-15.5); MEAN CORPUSCULAR HEMOGLOBIN 21.4 pg (27.0-33.0); MEAN CORPUSCULAR HGB CONC 29.3 g/dl (32.0-36.5); PLATELET COUNT, AUTOMATED 284 10^3/uL (150-450); RED BLOOD COUNT 4.44 10^6/uL (4.00-5.40); WHITE BLOOD COUNT 5.2 10^3/uL (4.0-10.0)
[2020-09-02 19:32] LABS: HEMATOCRIT 28.4 % (36.0-47.0); HEMOGLOBIN 8.2 g/dl (12.0-15.5); MEAN CORPUSCULAR HEMOGLOBIN 20.8 pg (27.0-33.0); MEAN CORPUSCULAR HGB CONC 28.9 g/dl (32.0-36.5); MEAN CORPUSCULAR VOLUME 71.9 fl (80.0-96.0); PLATELET COUNT, AUTOMATED 305 10^3/uL (150-450); RED BLOOD COUNT 3.95 10^6/uL (4.00-5.40); WHITE BLOOD COUNT 5.9 10^3/uL (4.0-10.0)
[2020-09-24 08:51] LABS: AMYLASE 64 U/L (25-115); BLOOD UREA NITROGEN 9 MG/DL (7-18); CALCIUM LEVEL 8.6 MG/DL (8.5-10.1); CARBON DIOXIDE LEVEL 28 MEQ/L (21-32); CHLORIDE LEVEL 111 MEQ/L (98-107); GLOMERULAR FILTRATION RATE > 60.0 (>51); GLUCOSE, FASTING 124 MG/DL (70-100); LIPASE 235 U/L (73-393); POTASSIUM SERUM 3.9 MEQ/L (3.5-5.1); SODIUM LEVEL 144 MEQ/L (136-145)
[2020-09-30 12:57] LABS: BLOOD UREA NITROGEN 11 MG/DL (7-18); CALCIUM LEVEL 8.5 MG/DL (8.5-10.1); CARBON DIOXIDE LEVEL 24 MEQ/L (21-32); CHLORIDE LEVEL 113 MEQ/L (98-107); CK-MB VALUE MASS < 1.0 NG/ML (<3.6); CPK CREATINE PHOSPHOKINASE 60 U/L (26-192); GLOMERULAR FILTRATION RATE > 60.0 (>51); GLUCOSE, FASTING 82 MG/DL (70-100); MAGNESIUM LEVEL 2.1 MG/DL (1.8-2.4); MB/CK RELATIVE INDEX 1.67 (< OR =4); POTASSIUM SERUM 3.5 MEQ/L (3.5-5.1); SODIUM LEVEL 143 MEQ/L (136-145)
[2020-09-30 12:57] LABS: BLOOD UREA NITROGEN 19 MG/DL (7-18); CALCIUM LEVEL 8.6 MG/DL (8.5-10.1); CARBON DIOXIDE LEVEL 29 MEQ/L (21-32); CHLORIDE LEVEL 109 MEQ/L (98-107); CK-MB VALUE MASS 2.3 NG/ML (<3.6); CPK CREATINE PHOSPHOKINASE 104 U/L (26-192); CREATININE FOR GFR 0.53 MG/DL (0.55-1.30); DIGOXIN LEVEL < 0.1 NG/ML (0.5-2.0); FREE T4 0.87 NG/DL (0.76-1.46); GLOMERULAR FILTRATION RATE > 60.0 (>51); GLUCOSE, FASTING 124 MG/DL (70-100); MB/CK RELATIVE INDEX 2.21 (< OR =4); POTASSIUM SERUM 3.9 MEQ/L (3.5-5.1); SODIUM LEVEL 141 MEQ/L (136-145); TROPONIN I 0.02 NG/ML (< 0.10)
[2020-10-01 05:27] LABS: CK-MB VALUE MASS 1.4 NG/ML (<3.6)
[2020-10-01 11:12] LABS: BLOOD UREA NITROGEN 11 MG/DL (7-18); CALCIUM LEVEL 8.4 MG/DL (8.5-10.1); CARBON DIOXIDE LEVEL 24 MEQ/L (21-32); CHLORIDE LEVEL 114 MEQ/L (98-107); CK-MB VALUE MASS < 1.0 NG/ML (<3.6); CPK CREATINE PHOSPHOKINASE 57 U/L (26-192); CREATININE FOR GFR 0.44 MG/DL (0.55-1.30); GLOMERULAR FILTRATION RATE > 60.0 (>51); GLUCOSE, FASTING 105 MG/DL (70-100); MB/CK RELATIVE INDEX 1.75 (< OR =4); POTASSIUM SERUM 3.7 MEQ/L (3.5-5.1); SODIUM LEVEL 144 MEQ/L (136-145)
[2020-10-01 13:01] LABS: BLOOD UREA NITROGEN 6 MG/DL (7-18); CALCIUM LEVEL 8.6 MG/DL (8.5-10.1); CARBON DIOXIDE LEVEL 30 MEQ/L (21-32); CHLORIDE LEVEL 108 MEQ/L (98-107); CREATININE FOR GFR 0.53 MG/DL (0.55-1.30); GLOMERULAR FILTRATION RATE > 60.0 (>51); GLUCOSE, FASTING 144 MG/DL (70-100); MAGNESIUM LEVEL 1.9 MG/DL (1.8-2.4); POTASSIUM SERUM 3.8 MEQ/L (3.5-5.1); SODIUM LEVEL 141 MEQ/L (136-145)
== END 2020-07-11 17:00 | disposition home or self-care (01) | DRG 663 ==
LOC: M ED 05:10 → M PCU 08:45
PROVIDERS: ADMIT Internal Medicine; ATTEND Internal Medicine
PROC: 30233N1 Transfusion of Nonautologous Red Blood Cells into Peripheral Vein, Percutaneous Approach (ICD-10-PCS; principal; 2020-07-07)
DX: D64.9 Anemia, unspecified (principal); R00.1 Bradycardia, unspecified; R55 Syncope and collapse; I48.91 Unspecified atrial fibrillation; J44.9 Chronic obstructive pulmonary disease, unspecified; E11.9 Type 2 diabetes mellitus without complications; Z79.899 Other long term (current) drug therapy; K92.2 Gastrointestinal hemorrhage, unspecified

== ENCOUNTER → 2020-07-18 | Outpatient (CLI) | payer BC ==
[2020-07-18 15:11] LABS: HEMATOCRIT 34.5 % (36.0-47.0); HEMOGLOBIN 10.3 g/dl (12.0-15.5); MEAN CORPUSCULAR HEMOGLOBIN 22.2 pg (27.0-33.0); MEAN CORPUSCULAR HGB CONC 29.9 g/dl (32.0-36.5); MEAN CORPUSCULAR VOLUME 74.2 fl (80.0-96.0); PLATELET COUNT, AUTOMATED 301 10^3/uL (150-450); RED BLOOD COUNT 4.65 10^6/uL (4.00-5.40); WHITE BLOOD COUNT 5.2 10^3/uL (4.0-10.0)
[2020-07-18 17:25] LABS: HEMOGLOBIN A1c 6.7 %
[2020-07-18 17:43] LABS: PERCENT SATURATION 21.7 % (13.2-45.0)
== END ==
LOC: M LAB 12:25
PROVIDERS: ATTEND Family Medicine
DX: D50.9 Iron deficiency anemia, unspecified (principal); E11.8 Type 2 diabetes mellitus with unspecified complications

== ENCOUNTER → 2020-11-30 | Outpatient (CLI) | payer SELFPAY | LOC: M LABSMTC 11:20 | PROVIDERS: ATTEND Pediatrics | DX: Z20.822 Contact with and (suspected) exposure to COVID-19 (principal) ==

== ENCOUNTER → 2020-12-11 | Outpatient (REF) | payer BC ==
[~2020-12-11] MED LIST changes: +NATU1TAB5 PO
[2020-12-11 10:53] LABS: HEMOGLOBIN A1c 6.3 %
[2020-12-11 11:09] LABS: BASO # 0.1 10^3/uL (0.0-0.2); BASO % 2.2 % (0.0-1.0); EOS # 0.4 10^3/uL (0.0-0.5); EOS % 7.8 % (0.0-3.0); HEMATOCRIT 29.4 % (36.0-47.0); HEMOGLOBIN 8.9 g/dl (12.0-15.5); LYMPH # 1.9 10^3/uL (1.5-5.0); LYMPH % 41.6 % (24.0-44.0); MEAN CORPUSCULAR HEMOGLOBIN 23.4 pg (27.0-33.0); MEAN CORPUSCULAR HGB CONC 30.3 g/dl (32.0-36.5); MEAN CORPUSCULAR VOLUME 77.4 fl (80.0-96.0); MONO # 0.5 10^3/uL (0.0-0.8); MONO % 10.6 % (0.0-5.0); NEUTROPHILS # 1.8 10^3/uL (1.5-8.5); NEUTROPHILS % 37.6 % (36.0-66.0); PLATELET COUNT, AUTOMATED 393 10^3/uL (150-450); WHITE BLOOD COUNT 4.6 10^3/uL (4.0-10.0)
[2020-12-11 11:52] LABS: ALBUMIN 3.4 GM/DL (3.2-5.2); ALT/SGPT 19 U/L (12-78); BILIRUBIN,TOTAL 0.4 MG/DL (0.2-1.0); BLOOD UREA NITROGEN 12 MG/DL (7-18); CALCIUM LEVEL 9.2 MG/DL (8.5-10.1); CARBON DIOXIDE LEVEL 27 MEQ/L (21-32); CHLORIDE LEVEL 106 MEQ/L (98-107); CHOLESTEROL LEVEL 185 MG/DL (<200); CHOLESTEROL RISK RATIO 2.312 (<5); CREATININE FOR GFR 0.52 MG/DL (0.55-1.30); GLOMERULAR FILTRATION RATE > 60.0 (>51); GLUCOSE, FASTING 92 MG/DL (70-100); HDL CHOLESTEROL 80 MG/DL (>40); LDL CHOLESTEROL 92 MG/DL (<100); NON-HDL-C 105 MG/DL; POTASSIUM SERUM 4.3 MEQ/L (3.5-5.1); PTH INTACT 67.6 PG/ML (18.5-88.0); SODIUM LEVEL 139 MEQ/L (136-145); TOTAL 25(OH) VITAMIN D 34.1 NG/ML (30.0-100.0); TOTAL PROTEIN 6.4 GM/DL (6.4-8.2); TRIGLYCERIDES LEVEL 63 MG/DL (<150); VITAMIN B12 LEVEL 1391 PG/ML (247-911)
== END ==
LOC: M PLALAB 08:38
PROVIDERS: ATTEND Family Medicine
DX: D50.9 Iron deficiency anemia, unspecified (principal); E11.8 Type 2 diabetes mellitus with unspecified complications; E78.2 Mixed hyperlipidemia; E55.9 Vitamin D deficiency, unspecified; E53.8 Deficiency of other specified B group vitamins

== ENCOUNTER → 2020-12-13 | Outpatient (REF) | payer BC ==
[2020-12-13 15:12] LABS: BASO # 0.1 10^3/uL (0.0-0.2); BASO % 1.6 % (0.0-1.0); EOS # 0.3 10^3/uL (0.0-0.5); EOS % 5.4 % (0.0-3.0); HEMATOCRIT 29.9 % (36.0-47.0); HEMOGLOBIN 8.7 g/dl (12.0-15.5); LYMPH # 2.2 10^3/uL (1.5-5.0); LYMPH % 38.1 % (24.0-44.0); MEAN CORPUSCULAR HEMOGLOBIN 23.2 pg (27.0-33.0); MEAN CORPUSCULAR HGB CONC 29.1 g/dl (32.0-36.5); MEAN CORPUSCULAR VOLUME 79.7 fl (80.0-96.0); MONO # 0.5 10^3/uL (0.0-0.8); MONO % 8.7 % (0.0-5.0); NEUTROPHILS # 2.7 10^3/uL (1.5-8.5); PLATELET COUNT, AUTOMATED 399 10^3/uL (150-450); RED BLOOD COUNT 3.75 10^6/uL (4.00-5.40); WHITE BLOOD COUNT 5.8 10^3/uL (4.0-10.0)
== END ==
LOC: M SFHCPLAZ 13:49
PROVIDERS: ATTEND Nurse Practitioner Family
DX: D50.9 Iron deficiency anemia, unspecified (principal)

== ENCOUNTER 2020-12-17 08:41 | Observation (INO) | payer BC ==
[2020-12-17] VITALS (7 sets, daily range): BP systolic 100–144; BP diastolic 51–67; O2SAT 98
[~2020-12-17] VITALS: Ht 154.9 cm; Wt 74.1 kg
[~2020-12-17 08:41] MED LIST changes: -NATU1TAB5 PO
[2020-12-17 09:50] LABS: BASO # 0.1 10^3/uL (0.0-0.2); BASO % 0.8 % (0.0-1.0); EOS # 0.3 10^3/uL (0.0-0.5); EOS % 4.2 % (0.0-3.0); HEMATOCRIT 29.4 % (36.0-47.0); HEMOGLOBIN 8.4 g/dl (12.0-15.5); LYMPH # 2.4 10^3/uL (1.5-5.0); LYMPH % 32.8 % (24.0-44.0); MEAN CORPUSCULAR HEMOGLOBIN 22.5 pg (27.0-33.0); MEAN CORPUSCULAR HGB CONC 28.6 g/dl (32.0-36.5); MEAN CORPUSCULAR VOLUME 78.8 fl (80.0-96.0); MONO # 0.5 10^3/uL (0.0-0.8); MONO % 6.7 % (0.0-5.0); NEUTROPHILS % 55.2 % (36.0-66.0); PLATELET COUNT, AUTOMATED 342 10^3/uL (150-450); RED BLOOD COUNT 3.73 10^6/uL (4.00-5.40); WHITE BLOOD COUNT 7.2 10^3/uL (4.0-10.0)
[2020-12-17 10:01] LABS: INR 0.98; PROTHROMBIN TIME 13.2 SECONDS (12.5-14.3)
[2020-12-17 10:09] LABS: BLOOD UREA NITROGEN 14 MG/DL (7-18); CALCIUM LEVEL 8.9 MG/DL (8.5-10.1); CARBON DIOXIDE LEVEL 26 MEQ/L (21-32); CHLORIDE LEVEL 106 MEQ/L (98-107); CREATININE FOR GFR 0.52 MG/DL (0.55-1.30); GLOMERULAR FILTRATION RATE > 60.0 (>51); GLUCOSE, FASTING 80 MG/DL (70-100); POTASSIUM SERUM 3.7 MEQ/L (3.5-5.1); SODIUM LEVEL 142 MEQ/L (136-145)
[2020-12-17 10:23] LABS: RSV AMPLIFICATION NEGATIVE (NEGATIVE)
--- NOTE | 2020-12-17 10:42 | REP ---
INDICATION: short of breath, weakness. COMPARISON: 07/09/2020 TECHNIQUE: Portable FINDINGS: The technique utilized in obtaining the radiograph has magnified the cardiac silhouette and accentuated the interstitial markings. The superior mediastinal structures are midline. The cardiac silhouette is unremarkable in size, shape, and position. The diaphragmatic surfaces of the lungs are regular, and the costophrenic angles are clear. The pulmonary mccarthy are clear. The imaged osseous structures are intact. IMPRESSION: There is no acute cardiopulmonary disease. <Electronically signed by Mukul Keene > 12/17/20 [id number]
--- NOTE | 2020-12-17 12:30 | ECGEPIP ---
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
[2020-12-17] MEDS ORDERED: NATU1TAB5 PO (12:44)
--- NOTE | 2020-12-17 13:46 | HPEPDOC ---
[facility] Medical History & Physical Date of Admission Dec 17, 2020 Date of Service: Dec 17, 2020 History and Physical CHIEF COMPLAINT: fatigue, weakness HISTORY OF PRESENT ILLNESS: 55 yo F with a hx of Afib (not on AC, rate c ontrolled), tachy bailey syndrome, DM2, lane en y gastric bypass, iron deficiency anemia? and GIB, presenting to ED with fatigue and malaise. Her PCP has been trending her Hgb and arranging for IV iron infusion on outpatient basis. However, due to symptomatic anemia at outpatient Hgb levels between 8.5 and 8.7, patient was advised to seek attention in the ER. On arrival, patient's Hgb was 8.4. Hct 29.4. PLT 342. INR 0.98. Vitals showed mild orthostasis. She was saturating 98% on RA. Hemoccult stool was negative in the ER. She reports mild dyspnea. Patient denies chest pain, palpitations, lightheadedness, dizziness, shortness of breath, cough, nausea, vomiting, diarrhea, blood in stool, vomiti ng, blood in the urine. EKG showed NSR, incomplete RBBB. CXR showed no acute pulmonary process. PAST MEDICAL HISTORY: atrial fibrillation tachy bailey syndrome DM2 Iron deficiency anemia PAST SURGICAL HISTORY: Lane en y gastric bypass Hysterectomy SOCIAL HISTORY: Patient denies smoking Patient denies etoh use Patient denies illicit drug use] FAMILY HISTORY: Father - DM2 Mother - DM2, CHF? ALLERGIES: Please see below. REVIEW OF SYSTEMS: 10 point review of systems conducted positive pertinence noted in the HPI. HOME MEDICATIONS: Please see below. PHYSICAL EXAMINATION: VITAL SIGNS: please see below General: Pale, comfortable lying in bed HEENT: PERRLA, EOMI, sclerae clear Neck: supple, normal ROM, no JVD Respiratory: lungs CTAB, no wheeze, no rales, no crackles CVS: RRR, normal S1, S2, no murmurs Abdo: soft, no masses, no hepatosplenomegaly, BS+, no rebound tenderness Extremities: no edema, pulses 2+ MSK: no joint deformities, normal ROM Neuro: no focal neuro deficits, moving all 4 extremities, CN2-12 intact. Strength 5/5 in all 4 extremities. No nystagmus. Psych: calm, cooperative, AAO x 3 LABORATORY DATA: See below. IMAGING: CXR (12/17/20): There is no acute cardiopulmonary disease. MICROBIOLOGY: Please see below. ASSESSMENT: 55 yo F with a hx of Afib (not on AC, rate controlled), tachy bailey syndrome, DM2, lane en y gastric bypass, iron deficiency anemia? and GIB admitted to hospitalist service for the management of symptomatic anemia without signs of GI bleeding. She'll be transfused packed red blood cells as well as given an IV iron infusion. Ddx for the anemia is likely malabsorption of iron secondary to history of Lane-en-Y gastric bypass . PLAN: Symptomatic anemia 2/2 possible iron deficiency from malabsorption 2/2 gastric bypass - negative FOBT in ER - per report, Hgb has been stable for past week between 8.4 and 8.7 - No signs of bleeding, patient denies hematochezia, melena, dark stool, hematuria, hemoptysis or hematemesis. No easy bruising, no trauma - coag panel wnl, INR 0.98 - had EGD and coloscopy by Dr. Lopez in 12/2019. EGD was unremarkable. C-scope showed 2 prior biopsy sites, which were clipped. - Ferritin on 12/13/20 - 4 - Will transfuse 1 unit pRBC for symptomatic anemia - IV venofer 500 mg x 2 - repeat CBC after transfusion - has f/u with Dr. 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 Hdez Tached bailey syndrome - follows with Dr. Hdez Positive h pylori serology - unable to find biopsy from EGD - PCP follow up DVT ppx: SCDs, TEDs, will hold lovenox Dispo: pending blood transfusion and iron infusion Vital Signs Vital Signs Date Time Temp Pulse Resp B/P (MAP) Pulse Ox O2 Delivery O2 Flow Rate FiO2 12/17/20 11:07 98 Room Air 12/17/20 10:36 57 112/63 (79) 69 128/71 (90) 65 127/69 (88) 12/17/20 08:41 97.8 22 Laboratory Data Labs 24H Laboratory Tests 2 12/17/20 09:14: Prothrombin Time 13.2, Prothromb Time International Ratio 0.98, Activated Partial Thromboplast Time 28.0 12/17/20 09:15: Immature Granulocyte % (Auto) 0.3, Neutrophils (%) (Auto) 55.2, Lymphocytes (%) (Auto) 32.8, Monocytes (%) (Auto) 6.7H, Eosinophils (%) (Auto) 4.2H, Basophils (%) (Auto) 0.8, Neutrophils # (Auto) 4.0, Lymphocytes # (Auto) 2.4, Monocytes # (Auto) 0.5, Eosinophils # (Auto) 0.3, Basophils # (Auto) 0.1, Nucleated Red Blood Cells % (auto) 0.0, Anion Gap 10, Glomerular Filtration Rate > 60.0, Manny cium Level 8.9, Coronavirus (COVID-19)(PCR) NEGATIVE, Influenza Type A (RT-PCR) NEGATIVE, Influenza Type B (RT-PCR) NEGATIVE, Respiratory Syncytial Virus (PCR) NEGATIVE 12/17/20 09:35: POC Troponin I (Misc) 0.00 CBC/BMP Laboratory Tests 12/17/20 09:15 Home Medications Scheduled Atorvastatin Calcium (Atorvastatin Calcium) 20 Mg Tablet, 20 MG PO DAILY Biotin (Biotin) 5,000 Mcg Cap, 5,000 MCG PO DAILY Calcium Carbonate/Vitamin D3 (Calcium 600 + Vit D 400 Softgl) 1 Each Capsule, 1 CAP PO DAILY Cholecalciferol (Vitamin D3) (Vitamin D3) 125 Mcg Tablet, 125 MCG PO DAILY Cyanocobalamin (Vitamin B-12) (Vitamin B-12) 500 Mcg Tab, 500 MCG PO DAILY Loratadine (Claritin) 10 Mg Cap, 10 MG PO DAILY Magnesium Oxide (Magnesium Oxide) 400 Mg Tablet, 400 MG PO DAILY Metformin HCl (Metformin HCl) 500 Mg Tablet, 500 MG PO DAILY Multivitamin (Multivitamins) 1 Each Tablet, 2 TAB PO DAILY Albert-3 Fatty Acids/Fish Oil (Fish Oil 1,000 mg Capsule) 1 Each Capsule, 2,000 MG PO DAILY Scheduled PRN Clobetasol Propionate (Temovate) 15 Gm Oint...g., 1 APLCT TOP BID PRN for RASH/ITCHING APPLY TO HANDS Diclofenac Sodium (Diclofenac Sodium) 1.5% 150ML Drops, 40 DROP TOP QID PRN for PAIN APPLIED TO KNEES AND HIPS NEEDED Fluticasone Propionate (Fluticasone Propionate) 16 Gm [place].susp, 2 SPRAY NARES DAILY PRN for CONGESTION Ipratropium/Albuterol Sulfate (Combivent Respimat 20-100 Mcg) 1 Aer Aer, 1 PUFF INH QID PRN for WHEEZING Magnesium Hydroxide (Milk of Magnesia) 400 Mg/5 Ml Oral.susp, 2,400 MG PO QHS PRN for CONSTIPATION Ondansetron (Ondansetron Odt) 4 Mg Tab.rapdis, 4 MG PO Q6H PRN for NAUSEA OR VOMITING Polyethylene Glycol 3350 (Miralax) 119 Gm Powder, 17 GM PO DAILY PRN for CONSTIPATION Allergies Coded Allergies: No Known Allergies (Unverified , 12/16/19) A-FIB/CHADSVASC A-FIB History Current/History of A-Fib/PAF?: Yes Current PO Anticoag Therapy: No ANABEL LUA MD Dec 17, 2020 13:46
[2020-12-17] MEDS ORDERED: MAALOX 30 ML SUSP *UDC PO PRN (14:00)
[2020-12-17] MEDS ORDERED: DEXTROSE 50% 50 ML SYRINGE IV PRN (14:00)
[2020-12-17] MEDS ORDERED: GLUCOSE 4GM CHEW TABLET PO PRN (14:00)
[2020-12-17] MEDS ORDERED: IRON SUCROSE 100MG 5ML VIAL (J1756 PER 1MG) IV ONE (14:00)
[2020-12-17] MEDS ORDERED: MOM 30ML SUSPENSION UDC PO PRN (14:00)
[2020-12-17] MEDS ORDERED: ACETAMINOPHEN TAB 650MG DOSE (2X325MG) PO PRN (14:00)
[2020-12-17] MEDS ORDERED: GLUCAGON INJ 1MG VIAL SC PRN (14:00)
[2020-12-17 14:43] LABS: IRON (FE) 10 UG/DL (50-170); TOTAL IRON BINDING CAPACITY 508 UG/DL (250-450)
[2020-12-17] MEDS ORDERED: IRON SUCROSE 250 MG in NS 250 ML IV ONE (17:00)
[2020-12-17] MEDS: HumaLOG INSULIN (NovoLOG) PER UNIT SC SCH (17:49)
[2020-12-17] MEDS: DOCUSATE SODIUM 100MG CAPSULE PO SCH (20:27)
[2020-12-17] MEDS ORDERED: HumaLOG INSULIN (NovoLOG) PER UNIT SC SCH (21:00)
[2020-12-17 21:22] LABS: HEMOGLOBIN 9.1 g/dl (12.0-15.5)
[2020-12-18 06:00] VITALS: BP 115/54
[2020-12-18 06:26] LABS: BASO # 0.1 10^3/uL (0.0-0.2); BASO % 1.5 % (0.0-1.0); EOS # 0.3 10^3/uL (0.0-0.5); EOS % 6.7 % (0.0-3.0); HEMATOCRIT 29.5 % (36.0-47.0); HEMOGLOBIN 8.7 g/dl (12.0-15.5); LYMPH # 1.6 10^3/uL (1.5-5.0); LYMPH % 39.5 % (24.0-44.0); MEAN CORPUSCULAR HEMOGLOBIN 23.4 pg (27.0-33.0); MEAN CORPUSCULAR HGB CONC 29.5 g/dl (32.0-36.5); MEAN CORPUSCULAR VOLUME 79.3 fl (80.0-96.0); MONO # 0.3 10^3/uL (0.0-0.8); MONO % 8.1 % (0.0-5.0); NEUTROPHILS # 1.8 10^3/uL (1.5-8.5); NEUTROPHILS % 43.7 % (36.0-66.0); PLATELET COUNT, AUTOMATED 293 10^3/uL (150-450); RED BLOOD COUNT 3.72 10^6/uL (4.00-5.40); WHITE BLOOD COUNT 4.1 10^3/uL (4.0-10.0)
[2020-12-18 06:57] LABS: ALBUMIN 3.1 GM/DL (3.2-5.2); ALT/SGPT 18 U/L (12-78); BILIRUBIN,TOTAL 0.4 MG/DL (0.2-1.0); BLOOD UREA NITROGEN 9 MG/DL (7-18); CALCIUM LEVEL 8.8 MG/DL (8.5-10.1); CARBON DIOXIDE LEVEL 25 MEQ/L (21-32); CHLORIDE LEVEL 109 MEQ/L (98-107); CREATININE FOR GFR 0.48 MG/DL (0.55-1.30); GLOMERULAR FILTRATION RATE > 60.0 (>51); GLUCOSE, FASTING 102 MG/DL (70-100); SODIUM LEVEL 144 MEQ/L (136-145); TOTAL PROTEIN 6.2 GM/DL (6.4-8.2)
[2020-12-18] MEDS: HumaLOG INSULIN (NovoLOG) PER UNIT SC SCH (07:30)
[2020-12-18] MEDS: DOCUSATE SODIUM 100MG CAPSULE PO SCH (08:14)
--- NOTE | 2020-12-18 09:47 | DSES ---
DISCHARGE SUMMARY DATE OF ADMISSION: 12/17/2020 DATE OF DISCHARGE: 12/18/2020 DISCHARGE DIAGNOSIS: Symptomatic anemia. SECONDARY DIAGNOSES: 1. Atrial fibrillation. 2. Type-2 diabetes. 3. History of gastric bypass surgery. 4. Iron-deficiency anemia history. HISTORY: Cordelia Pino was apparently admitted for a transfusion for symptomatic anemia with hemoglobin 8.4. No active bleeding in the Emergency Room. Please see details in History and Physical from admission. HOSPITAL COURSE: The patient was admitted to a medical bed. She was transfused 1 unit of packed red blood cells and received an iron infusion, feels ready to go home this morning PHYSICAL EXAM: On the day of discharge vital signs are stable. She is alert, conversant, no distress. LUNGS: Clear. HEART: Regular rate and rhythm. ABDOMEN: Soft, nontender. EXTREMITIES: No peripheral edema. LABS: Hemoglobin is 8.7 today. Electrolytes are unremarkable. DISPOSITION: She is discharged home in improved and stable condition. She will resume the same medicine she was taking prior to admission. Follow up with Dr. Ruiz, her primary care provider. She has an appointment already tomorrow. Diet and activity are unchanged from before admission.
== END 2020-12-18 10:41 | disposition home or self-care (01) ==
LOC: M ED 08:41 → M ED INP 13:56 → M MSPAV 15:00
PROVIDERS: ADMIT Family Medicine; ATTEND Family Medicine
DX: D64.9 Anemia, unspecified (principal); I48.0 Paroxysmal atrial fibrillation; E11.9 Type 2 diabetes mellitus without complications; Z98.84 Bariatric surgery status; I49.5 Sick sinus syndrome; Z79.899 Other long term (current) drug therapy; Z79.84 Long term (current) use of oral hypoglycemic drugs; E78.49 Other hyperlipidemia; E78.00 Pure hypercholesterolemia, unspecified; G47.30 Sleep apnea, unspecified; Z87.891 Personal history of nicotine dependence
CPT/HCPCS: 36415; 36430; 71045; 80048; 80053; 83550; 84484; 85014; 85018; 85025; 85610; 85730; 86850; 86900; 86901; 86920; 87631; 93005; 93041; 94760; 96374; 99285; J1756; P9016

== ENCOUNTER → 2020-12-19 | Outpatient (REF) | payer BC ==
[~2020-12-19] MED LIST changes: +NATU1TAB5 PO
[2020-12-19 17:06] LABS: BASO # 0.1 10^3/uL (0.0-0.2); BASO % 1.2 % (0.0-1.0); EOS # 0.3 10^3/uL (0.0-0.5); EOS % 4.2 % (0.0-3.0); HEMATOCRIT 32.8 % (36.0-47.0); HEMOGLOBIN 9.8 g/dl (12.0-15.5); LYMPH # 2.6 10^3/uL (1.5-5.0); LYMPH % 37.4 % (24.0-44.0); MEAN CORPUSCULAR HGB CONC 29.9 g/dl (32.0-36.5); MEAN CORPUSCULAR VOLUME 80.2 fl (80.0-96.0); MONO # 0.6 10^3/uL (0.0-0.8); MONO % 8.8 % (0.0-5.0); NEUTROPHILS # 3.3 10^3/uL (1.5-8.5); NEUTROPHILS % 48.1 % (36.0-66.0); PLATELET COUNT, AUTOMATED 352 10^3/uL (150-450); RED BLOOD COUNT 4.09 10^6/uL (4.00-5.40); WHITE BLOOD COUNT 6.9 10^3/uL (4.0-10.0)
[2020-12-19 17:35] LABS: FERRITIN 72 NG/ML (8-252)
[2020-12-19 17:41] LABS: FOLATE > 24.0 NG/ML (>5.4)
== END ==
LOC: M SFHCPLAZ 14:57
PROVIDERS: ATTEND Physician Assistant Medical
DX: D64.9 Anemia, unspecified (principal)

== ENCOUNTER 2020-12-21 06:42 | Outpatient (CLI) | payer BC ==
[~2020-12-21] VITALS: Ht 154.9 cm; Wt 74.1 kg
[2020-12-21] MEDS ORDERED: IRON SUCROSE 25 MG in NS 25 ML IV ONE (07:00)
[2020-12-21] MEDS ORDERED: IRON SUCROSE 225 MG in NS 225 ML IV ONE (08:00)
[2020-12-21 09:00] VITALS: BP 125/60
[2020-12-21 10:00] VITALS: BP 131/71
[2020-12-21 10:51] VITALS: BP 118/64
== END 2020-12-21 10:50 | disposition home or self-care (01) ==
LOC: EEVIPCON 06:42 → M INFU 06:42
PROVIDERS: ATTEND Physician Assistant Medical
DX: D50.9 Iron deficiency anemia, unspecified (principal)
CPT/HCPCS: 96365; 96366; J1756

== ENCOUNTER → 2021-01-08 | Outpatient (CLI) | payer BC ==
[2021-01-08 12:48] LABS: BASO # 0.1 10^3/uL (0.0-0.2); BASO % 1.6 % (0.0-1.0); EOS # 0.4 10^3/uL (0.0-0.5); EOS % 7.7 % (0.0-3.0); HEMATOCRIT 38.1 % (36.0-47.0); HEMOGLOBIN 11.4 g/dl (12.0-15.5); LYMPH # 2.2 10^3/uL (1.5-5.0); LYMPH % 45.2 % (24.0-44.0); MEAN CORPUSCULAR HEMOGLOBIN 25.2 pg (27.0-33.0); MEAN CORPUSCULAR HGB CONC 29.9 g/dl (32.0-36.5); MEAN CORPUSCULAR VOLUME 84.3 fl (80.0-96.0); MONO # 0.5 10^3/uL (0.0-0.8); MONO % 9.1 % (0.0-8.0); NEUTROPHILS # 1.8 10^3/uL (1.5-8.5); NEUTROPHILS % 36.2 % (36.0-66.0); PLATELET COUNT, AUTOMATED 305 10^3/uL (150-450); RED BLOOD COUNT 4.52 10^6/uL (4.00-5.40)
[2021-01-08 13:19] LABS: FERRITIN 36 NG/ML (8-252); IRON (FE) 299 UG/DL (50-170)
[2021-01-08 13:31] LABS: FOLATE > 24.0 NG/ML (>5.4)
== END ==
LOC: M LAB 11:57
PROVIDERS: ATTEND Physician Assistant Medical
DX: D64.9 Anemia, unspecified (principal)

== ENCOUNTER → 2021-01-29 | Outpatient (CLI) | payer BC ==
[2021-01-29 08:36] LABS: BASO # 0.1 10^3/uL (0.0-0.2); BASO % 1.1 % (0.0-1.0); EOS # 0.3 10^3/uL (0.0-0.5); EOS % 7.2 % (0.0-3.0); HEMATOCRIT 39.6 % (36.0-47.0); LYMPH # 2.1 10^3/uL (1.5-5.0); LYMPH % 44.9 % (24.0-44.0); MEAN CORPUSCULAR HGB CONC 30.3 g/dl (32.0-36.5); MEAN CORPUSCULAR VOLUME 85.9 fl (80.0-96.0); MONO # 0.4 10^3/uL (0.0-0.8); MONO % 8.9 % (2.0-8.0); NEUTROPHILS # 1.7 10^3/uL (1.5-8.5); NEUTROPHILS % 37.7 % (36.0-66.0); PLATELET COUNT, AUTOMATED 250 10^3/uL (150-450); RED BLOOD COUNT 4.61 10^6/uL (4.00-5.40); WHITE BLOOD COUNT 4.6 10^3/uL (4.0-10.0)
[2021-01-29 09:44] LABS: FERRITIN 20 NG/ML (8-252); IRON (FE) 95 UG/DL (50-170)
[2021-01-29 10:00] LABS: FOLATE > 24.0 NG/ML (>5.4)
== END ==
LOC: M LAB 07:59
PROVIDERS: ATTEND Physician Assistant Medical
DX: D64.9 Anemia, unspecified (principal)

== ENCOUNTER 2021-02-05 12:09 | Outpatient (CLI) | payer BC ==
[~2021-02-05] VITALS: Ht 154.9 cm; Wt 74.1 kg
[2021-02-05] MEDS ORDERED: IRON SUCROSE 300 MG in NS 250 ML OVER 90 MIN. IV ONE (12:30)
[2021-02-05] MEDS ORDERED: IRON SUCROSE 25 MG in NS 25 ML IV ONE (12:30)
[2021-02-05 12:34] VITALS: BP 132/63
[2021-02-05 14:15] VITALS: BP 122/61
[2021-02-05 15:37] VITALS: BP 126/64
== END 2021-02-05 15:45 | disposition home or self-care (01) ==
LOC: M INFU 12:09
PROVIDERS: ATTEND Physician Assistant Medical
DX: D50.9 Iron deficiency anemia, unspecified (principal)
CPT/HCPCS: 96365; 96366; J1756

== ENCOUNTER → 2021-02-21 | Outpatient (CLI) | payer BC ==
[~2021-02-21] MED LIST changes: +MECL-86 PO
== END ==
LOC: M LABSMTC 10:21
PROVIDERS: ATTEND Anesthesiology
DX: Z01.812 Encounter for preprocedural laboratory examination (principal); Z20.822 Contact with and (suspected) exposure to COVID-19

== ENCOUNTER 2021-02-26 06:54 | Day surgery (SDC) | payer BC ==
[~2021-02-26] VITALS: Ht 154.9 cm; Wt 74.8 kg
[2021-02-26] MEDS ORDERED: NS 1,000 ML IV ONE (07:00)
[2021-02-26] MEDS ORDERED: fentaNYL 100 MCG/2 ML INJECTION (J3010) As Ordered ONE (07:29)
[2021-02-26] MEDS ORDERED: propofoL 200 MG/20 ML VIAL As Ordered ONE ×2 (07:29→09:24)
[2021-02-26] MEDS ORDERED: LIDOCAINE 2% 100MG/5ML SDV (FOR ANES.) As Ordered ONE (07:29)
[2021-02-26] MEDS ORDERED: ePHEDrine SULFATE 25 MG/5 ML(5MG/ML) SYRINGE As Ordered ONE (08:51)
--- NOTE | 2021-02-26 09:11 | ROOR ---
Patient Name: Cordelia Pino Procedure Date: 02/26/2021 8:11 AM Date of : 1965 Age: 55 Room: [facility] Gender: Female Note Status: Finalized Procedure: Upper GI endoscopy Indications: Iron deficiency anemia Providers: Gigi MIJARES MD Referring MD: Chaz Ruiz MD Requesting Provider: Medicines: Monitored Anesthesia Care Complications: No immediate complications. Procedure: Pre-Anesthesia Assessment: - The heart rate, respiratory rate, oxygen saturations, blood pressure, adequacy of pulmonary ventilation, and response to care were monitored throughout the procedure. The Endoscope was introduced through the mouth, and advanced to the jejunum. The upper GI endoscopy was accomplished without difficulty. The patient tolerated the procedure well. Findings: Evidence of a Ever-en-Y gastrojejunostomy was found. The gastrojejunal anastomosis was characterized by healthy appearing mucosa. The exam was otherwise without abnormality. Biopsies for histology were taken with a cold forceps mid-jejunum for evaluation of celiac disease. Biopsies were taken with a cold forceps in the stomach for Helicobacter pylori testing. Impression: - Ever-en-Y gastrojejunostomy with gastrojejunal anastomosis characterized by healthy appearing mucosa. - The examination was otherwise normal. - Jejunum:Biopsies were taken with a cold forceps for evaluation of celiac disease. - Stomach:Biopsies were taken with a cold forceps for Helicobacter pylori testing. Recommendation: - Recommend an iron supplement (po or IV) indefinitely. (RNY gastric bypass) Procedure Code(s): --- Professional --- 73961, Esophagogastroduodenoscopy, flexible, transoral; with biopsy, single or multiple Diagnosis Code(s): --- Professional --- D50.9, Iron deficiency anemia, unspecified Z98.0, Intestinal bypass and anastomosis status CPT copyright 2019 [employer]. All rights reserved. The codes documented in this report are preliminary and upon breast worker review may be revised to meet current compliance requirements. Gigi Mijares MD Gigi MIJARES MD 02/26/2021 9:10:32 AM Electronically signed by Gigi MIJARES MD Number of Addenda: 0 Note Initiated On: 02/26/2021 8:11 AM Estimated Blood Loss: Estimated blood loss: none.
--- NOTE | 2021-02-26 09:24 | ROOR ---
Patient Name: Cordelia Pino Procedure Date: 02/26/2021 8:11 AM Date of : 1965 Age: 55 Room: [id number] Gender: Female Note Status: Finalized Procedure: Colonoscopy Indications: High risk colon cancer surveillance: Personal history of adenoma with high grade dysplasia, Iron deficit Providers: Gigi MIJARES MD Referring MD: Chaz Ruiz MD Requesting Provider: Medicines: Monitored Anesthesia Care Complications: No immediate complications. Procedure: Pre-Anesthesia Assessment: - The heart rate, respiratory rate, oxygen saturations, blood pressure, adequacy of pulmonary ventilation, and response to care were monitored throughout the procedure. The Colonoscope was introduced through the anus and advanced to 15 cm into the ileum. The colonoscopy was performed without difficulty. The patient tolerated the procedure well. The quality of the bowel preparation was good. Findings: The perianal and digital rectal examinations were normal. A tattoo was seen at the hepatic flexure. The tattoo site appeared abnormal with a small scar and 1 cm surrounding polypoid mucosa . The polypoid mucosa was removed with a piecemeal technique using a cold snare. Resection and retrieval were complete. To prevent bleeding after the polypectomy, four hemostatic clips were successfully placed. There was no bleeding at the end of the procedure. The exam was otherwise without abnormality on direct and retroflexion views. Mild sigmoid diverticulosis and small internal hemorrhoids. Impression: - A tattoo was seen at the hepatic flexure. The tattoo site is noted for a scar and surrounding polypoid mucosa. (benign apperance likely related to scarring from previous polypectomy). Clips were placed. - Mild sigmoid diverticulosis and small internal hemorrhoids. - The examination of the colon and 15 cm into terminal ileum is otherwise normal. Recommendation: - Repeat colonoscopy for surveillance based on pathology results. - Telephone endoscopist for pathology results in 2 weeks. - Resume Xarelto (rivaroxaban) at prior dose in 3 days If needed. (discuss need for Xarelto with your home visit field care manager). Procedure Code(s): --- Professional --- 53548, Colonoscopy, flexible; with removal of tumor(s), polyp(s), or other lesion(s) by snare technique Diagnosis Code(s): --- Professional --- Z86.010, Personal history of colonic polyps CPT copyright 2019 [employer]. All rights reserved. The codes documented in this report are preliminary and upon service department manager review may be revised to meet current compliance requirements. Gigi Mijares MD Gigi MIJARES MD 02/26/2021 9:24:06 AM Electronically signed by Gigi MIJARES MD Number of Addenda: 0 Note Initiated On: 02/26/2021 8:11 AM Estimated Blood Loss: Estimated blood loss: none.
[2021-02-26 09:35] VITALS: BP 126/62
== END 2021-02-26 09:40 | disposition home or self-care (01) ==
LOC: M OPP 06:54
PROVIDERS: ATTEND Internal Medicine Gastroenterology
DX: K63.5 Polyp of colon (principal); Z86.010 Personal history of colon polyps; Z98.0 Intestinal bypass and anastomosis status; D50.9 Iron deficiency anemia, unspecified; I48.91 Unspecified atrial fibrillation; I34.0 Nonrheumatic mitral (valve) insufficiency; E11.9 Type 2 diabetes mellitus without complications; K57.30 Diverticulosis of large intestine without perforation or abscess without bleeding; K64.8 Other hemorrhoids; Z87.19 Personal history of other diseases of the digestive system; Z79.84 Long term (current) use of oral hypoglycemic drugs; Z79.899 Other long term (current) drug therapy
CPT/HCPCS: 43239; 45385; 88305; J3010

== ENCOUNTER → 2021-02-28 | Outpatient (REF) | payer BC ==
[2021-02-28 10:05] LABS: BASO # 0.1 10^3/uL (0.0-0.2); BASO % 1.2 % (0.0-1.0); EOS # 0.2 10^3/uL (0.0-0.5); EOS % 4.7 % (0.0-3.0); HEMATOCRIT 39.9 % (36.0-47.0); HEMOGLOBIN 12.2 g/dl (12.0-15.5); LYMPH # 1.9 10^3/uL (1.5-5.0); LYMPH % 45.5 % (24.0-44.0); MEAN CORPUSCULAR HEMOGLOBIN 27.1 pg (27.0-33.0); MEAN CORPUSCULAR HGB CONC 30.6 g/dl (32.0-36.5); MEAN CORPUSCULAR VOLUME 88.7 fl (80.0-96.0); MONO # 0.3 10^3/uL (0.0-0.8); MONO % 5.9 % (2.0-8.0); NEUTROPHILS # 1.8 10^3/uL (1.5-8.5); NEUTROPHILS % 42.5 % (36.0-66.0); PLATELET COUNT, AUTOMATED 231 10^3/uL (150-450); WHITE BLOOD COUNT 4.3 10^3/uL (4.0-10.0)
[2021-02-28 10:46] LABS: HEMOGLOBIN A1c 6.6 %
[2021-02-28 10:58] LABS: ALBUMIN 3.6 GM/DL (3.2-5.2); ALT/SGPT 56 U/L (12-78); BILIRUBIN,TOTAL 0.4 MG/DL (0.2-1.0); BLOOD UREA NITROGEN 10 MG/DL (7-18); CALCIUM LEVEL 9.3 MG/DL (8.5-10.1); CARBON DIOXIDE LEVEL 27 MEQ/L (21-32); CHLORIDE LEVEL 109 MEQ/L (98-107); CREATININE FOR GFR 0.48 MG/DL (0.55-1.30); FERRITIN 55 NG/ML (8-252); FREE T4 0.97 NG/DL (0.76-1.46); GLOMERULAR FILTRATION RATE > 60.0 (>51); GLUCOSE, FASTING 143 MG/DL (70-100); NT-PRO BNP 57 PG/ML (<125); POTASSIUM SERUM 4.4 MEQ/L (3.5-5.1); SODIUM LEVEL 141 MEQ/L (136-145); TOTAL PROTEIN 6.6 GM/DL (6.4-8.2)
[2021-02-28 12:05] LABS: VITAMIN B12 LEVEL 875 PG/ML (247-911)
== END ==
LOC: M PLALAB 09:04
PROVIDERS: ATTEND Family Medicine
DX: E78.2 Mixed hyperlipidemia (principal); E53.8 Deficiency of other specified B group vitamins; E11.8 Type 2 diabetes mellitus with unspecified complications

== ENCOUNTER → 2021-04-03 | Outpatient (REF) | payer BC ==
[2021-04-03 11:25] LABS: BASO # 0.1 10^3/uL (0.0-0.2); BASO % 1.6 % (0.0-1.0); EOS # 0.2 10^3/uL (0.0-0.5); EOS % 5.2 % (0.0-3.0); HEMATOCRIT 40.2 % (36.0-47.0); HEMOGLOBIN 12.6 g/dl (12.0-15.5); LYMPH % 45.4 % (24.0-44.0); MEAN CORPUSCULAR HEMOGLOBIN 28.8 pg (27.0-33.0); MEAN CORPUSCULAR HGB CONC 31.3 g/dl (32.0-36.5); MEAN CORPUSCULAR VOLUME 91.8 fl (80.0-96.0); MONO # 0.4 10^3/uL (0.0-0.8); MONO % 7.9 % (2.0-8.0); NEUTROPHILS # 1.8 10^3/uL (1.5-8.5); NEUTROPHILS % 39.7 % (36.0-66.0); PLATELET COUNT, AUTOMATED 244 10^3/uL (150-450); RED BLOOD COUNT 4.38 10^6/uL (4.00-5.40); WHITE BLOOD COUNT 4.5 10^3/uL (4.0-10.0)
[2021-04-03 11:57] LABS: ALBUMIN 3.7 GM/DL (3.2-5.2); ALT/SGPT 22 U/L (12-78); BILIRUBIN,TOTAL 0.6 MG/DL (0.2-1.0); BLOOD UREA NITROGEN 14 MG/DL (7-18); CALCIUM LEVEL 9.4 MG/DL (8.5-10.1); CARBON DIOXIDE LEVEL 28 MEQ/L (21-32); CHLORIDE LEVEL 109 MEQ/L (98-107); CHOLESTEROL LEVEL 154 MG/DL (<200); CHOLESTEROL RISK RATIO 1.811 (<5); CREATININE FOR GFR 0.46 MG/DL (0.55-1.30); FERRITIN 49 NG/ML (8-252); GLOMERULAR FILTRATION RATE > 60.0 (>51); GLUCOSE, FASTING 85 MG/DL (70-100); HDL CHOLESTEROL 85 MG/DL (>40); LDL CHOLESTEROL 57 MG/DL (<100); NON-HDL-C 69 MG/DL; POTASSIUM SERUM 4.1 MEQ/L (3.5-5.1); RHEUMATOID FACTOR QUANT < 10.0 IU/ML (<15.0); SODIUM LEVEL 141 MEQ/L (136-145); TOTAL PROTEIN 6.7 GM/DL (6.4-8.2); TRIGLYCERIDES LEVEL 62 MG/DL (<150)
[2021-04-03 12:12] LABS: HEMOGLOBIN A1c 6.3 %
[2021-04-04 23:10] LABS: ANA (HEP2) Negative (.); CYCLIC CITRULLINATED PEPTIDE 1 units (0-19)
== END ==
LOC: M PLALAB 09:44
PROVIDERS: ATTEND Family Medicine
DX: D50.9 Iron deficiency anemia, unspecified (principal); M19.049 Primary osteoarthritis, unspecified hand; E11.8 Type 2 diabetes mellitus with unspecified complications

== ENCOUNTER → 2021-05-24 | Outpatient (CLI) | payer BC ==
[2021-05-24 17:19] LABS: BASO % 0.8 % (0.0-1.0); EOS # 0.2 10^3/uL (0.0-0.5); EOS % 3.6 % (0.0-3.0); HEMATOCRIT 40.7 % (36.0-47.0); HEMOGLOBIN 12.7 g/dl (12.0-15.5); LYMPH # 1.7 10^3/uL (1.5-5.0); LYMPH % 31.6 % (24.0-44.0); MEAN CORPUSCULAR HEMOGLOBIN 30.1 pg (27.0-33.0); MEAN CORPUSCULAR HGB CONC 31.2 g/dl (32.0-36.5); MEAN CORPUSCULAR VOLUME 96.4 fl (80.0-96.0); MONO # 0.5 10^3/uL (0.0-0.8); MONO % 10.2 % (2.0-8.0); NEUTROPHILS # 2.8 10^3/uL (1.5-8.5); NEUTROPHILS % 53.4 % (36.0-66.0); PLATELET COUNT, AUTOMATED 233 10^3/uL (150-450); RED BLOOD COUNT 4.22 10^6/uL (4.00-5.40); WHITE BLOOD COUNT 5.3 10^3/uL (4.0-10.0)
[2021-05-24 17:48] LABS: ALBUMIN 3.9 GM/DL (3.2-5.2); ALT/SGPT 24 U/L (12-78); BILIRUBIN,TOTAL 0.5 MG/DL (0.2-1.0); BLOOD UREA NITROGEN 13 MG/DL (7-18); CALCIUM LEVEL 9.3 MG/DL (8.5-10.1); CARBON DIOXIDE LEVEL 30 MEQ/L (21-32); CHLORIDE LEVEL 107 MEQ/L (98-107); CREATININE FOR GFR 0.49 MG/DL (0.55-1.30); GLOMERULAR FILTRATION RATE > 60.0 (>51); GLUCOSE, FASTING 61 MG/DL (70-100); LIPASE 195 U/L (73-393); POTASSIUM SERUM 4.1 MEQ/L (3.5-5.1); SODIUM LEVEL 142 MEQ/L (136-145); TOTAL PROTEIN 7.2 GM/DL (6.4-8.2)
== END ==
LOC: M PLALAB 15:30
PROVIDERS: ATTEND Family Medicine
DX: A08.4 Viral intestinal infection, unspecified (principal)

== ENCOUNTER → 2021-06-19 | Outpatient (CLI) | payer BC ==
[~2021-06-19] MED LIST changes: -DICL5SOL TOP; +DICL5SOL3 TOP
--- NOTE | 2021-06-19 13:29 | REP ---
INDICATION: SPONDYLOSIS W/O MYELOPATHY OR RADICULOPATHY, CERVICAL REGION. COMPARISON: Comparison cervical spine radiographs April 07, 2014.. TECHNIQUE: Eight views of the cervical spine are provided including flexion extension lateral radiographs. FINDINGS: Lateral views done in flexion extension and neutral position demonstrate slight straightening. No subluxation or instability is seen. There is degenerative disc disease with disc space narrowing and endplate sclerosis at the C3-4 level. This is slightly more pronounced but not new when compared to the 2014 study. Prevertebral soft tissues are not widened. Swimmer's lateral view shows no additional abnormality. On AP radiograph there is mild hypertrophy of the mid cervical spine spine facets consistent with early osteoarthritis. Oblique images demonstrate right-sided uncovertebral spurring producing foraminal encroachment at C3-4 and C4-5. Left-sided neural foramina appear patent. Facets are normally aligned. IMPRESSION: Degenerative spondylosis changes as noted above. Radiographically somewhat more prominent than on the 2013 prior study. <Electronically signed by Gautam Odom > 06/19/21 [id number]
== END ==
LOC: M PLAIMG 10:50
PROVIDERS: ATTEND Family Medicine
DX: M47.812 Spondylosis without myelopathy or radiculopathy, cervical region (principal)

== ENCOUNTER → 2021-08-10 | Outpatient (CLI) | payer BC | LOC: M LABSMTC 10:46 | PROVIDERS: ATTEND Pediatrics | DX: Z20.822 Contact with and (suspected) exposure to COVID-19 (principal) | CPT/HCPCS: C9803; U0003 ==

== ENCOUNTER 2021-09-05 10:28 | Inpatient (IN) | payer BC ==
[~2021-09-05] VITALS: Ht 154.9 cm; Wt 78.8 kg
[2021-09-05 11:09] LABS: BASO # 0.1 10^3/uL (0.0-0.2); BASO % 1.4 % (0.0-1.0); EOS # 0.2 10^3/uL (0.0-0.5); EOS % 2.9 % (0.0-3.0); HEMATOCRIT 42.5 % (36.0-47.0); HEMOGLOBIN 13.4 g/dl (12.0-15.5); LYMPH # 2.9 10^3/uL (1.5-5.0); LYMPH % 45.3 % (24.0-44.0); MEAN CORPUSCULAR HEMOGLOBIN 29.4 pg (27.0-33.0); MEAN CORPUSCULAR HGB CONC 31.5 g/dl (32.0-36.5); MEAN CORPUSCULAR VOLUME 93.2 fl (80.0-96.0); MONO # 0.5 10^3/uL (0.0-0.8); MONO % 8.4 % (2.0-8.0); NEUTROPHILS # 2.7 10^3/uL (1.5-8.5); NEUTROPHILS % 41.7 % (36.0-66.0); PLATELET COUNT, AUTOMATED 315 10^3/uL (150-450); RED BLOOD COUNT 4.56 10^6/uL (4.00-5.40); WHITE BLOOD COUNT 6.5 10^3/uL (4.0-10.0)
--- NOTE | 2021-09-05 11:11 | REP ---
INDICATION: CHEST PAIN COMPARISON: 12/17/2020 TECHNIQUE: Portable AP view of the chest FINDINGS: The mediastinum and cardiac silhouette are stable and within normal limits for portable technique. The lung mccarthy are clear without acute consolidation, effusion, or pneumothorax. Skeletal structures are intact. IMPRESSION: No acute cardiopulmonary process appreciated. <Electronically signed by Brent Lindsey > 09/05/21 0781
[2021-09-05] MEDS ORDERED: DIGOXIN INJ 0.5 MG/2 ML AMP (J1160) IV ONE ×3 (11:15→16:45)
--- OUTSIDE RECORDS SUMMARY | 2021-09-05 11:18 | CCD ---
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 Active confirmed 77861267 Problem BPPV (benign paroxysmal positional vertigo) H81.10 Active confirmed 964560130 Problem Vitamin D deficiency E55.9 Active confirmed 65721567 Problem Breast cancer screening Z12.39 Active confirmed 735615652 Problem Tubulovillous adenoma of colon D12.6 Active confir med 65920572 Problem Eczema of both hands L30.9 Active confirmed 340772417 Problem 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 Act luz confirmed 501324538360514 Problem Mixed hyperlipidemia E78.2 Active confirmed 979503592 Problem Primary osteoarthritis, right wrist M19.031 Acti ve confirmed 679653467009828 Problem DJD (degenerative joint disease), lumbar M47.816 Active confirmed 028779130 Problem Osteopenia M85.80 Active confirmed 955338271 Problem Allergic rhinitis, unspecified J30.9 Active confir med 60605867 Problem Impingement syndrome of right shoulder M75.41 A ctive confirmed 10504379526774463 Problem Impingement syndrome of left shoulder M75.42 Ac tive confirmed 535404351006193 Problem Diabetes mellitus type 2 with complications E11.8 Active confirmed 313355076 Problem DONG (obstructive sleep apnea) G47.33 Active confirm ed 80174667 Problem Recurrent sinusitis J32.9 Active confirmed 908881790 Problem B12 deficiency E53.8 Active confirmed 65551 4004 Problem Osteoarthritis of spine with radiculopathy, lumbar region M47.26 Active confirmed 479540221 Problem Primary osteoarthritis of both knees M17.0 Act luz confirmed 597762438 Problem Nephrolithiasis N20.0 Active confirmed 9557 0007 Problem 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 Active confirmed 700802039 Problem Constipation, chronic K59.09 Active confirmed 521701792 Problem Bilateral carpal tunnel syndrome G56.03 Active conf irmed 29523415 Problem Mitral valve disease I05.9 Active confirmed 38822906 Problem Cervical spondylosis M47.812 Active confirmed 357500604 Problem IT band syndrome, right M76.31 Active confirmed 909506125 Problem Paroxysmal atrial fibrillation I48.0 Active confir med 962903202 Problem Iron deficiency anemia, unspecified iron deficiency an emia type D50.9 Active confirmed 53704913 Problem Peripheral neuropathy G62.9 Active confirmed 630637907 Problem Obstructive uropathy N13.9 Active confirmed 7847360 Problem Colon cancer screening Z12.11 Active confirmed 681855460 ALLERGIES No Known Allergies ENCOUNTERS from 1965 to 2021-07-02 Encounter Location Date Provider Diagnosis [facility] [address] [phone] [place] [address] Jun, Chaz Ruiz BPPV (benign paroxysmal posi tional vertigo) H81.10 IMMUNIZATIONS Vaccine Route Administration Date Status COVID-19 dose #2 given elsewhere Unspecified IM Intramuscular Ap ril 2020 Administered Influenza 18 yrs & older Flublok IM Intramuscular Sep 19, 2020 Administered Influenza 18 yrs & older Flublok Unknown Sep 28, 2019 Administered Influenza 6mo & up Fluzone Unknown Aug 28, 2017 Other s SOCIAL HISTORY Tobacco Use: Social History Observation Description Date Details (start date - stop date) Never Smoker Sex Assigned At : Social History Observation Description Sex Assigned At Unknown Education: Question Answer Notes Level of Education: College Audit Question Answer Notes Total Score: 0 Interpretation: Alcohol Education Language: Question Answer Notes Languages spoken: Polish Voodoo: Question Answer Notes Voodoo 06 Sabianism Sexual Hx: Question Answer Notes Had sex in the last 12 months (vaginal, oral, or anal)? Yes Have you ever had an STD? No with Men only Use protection? No Drug and Alcohol Question Answer Notes Total Score: 0 Interpretation: No problems reported Alcohol Screening: Question Answer Notes Did you have a drink containing alcohol in the past year? No Points 0 Interpretation Negative BMI Care Goal Follow-Up Question Answer Notes Above Normal BMI Follow-Up Lifestyle education regarding t Tobacco Use: Question Answer Notes Are you a: never smoker REASON FOR REFERRAL No Information VITAL SIGNS No information MEDICATIONS Medication SIG (Take, Route, Frequency, Duration) Notes Start Da te End Date Status Polyethylene Glycol - 17 gm orally in 8 oz liquid daily for 30 D ays May, Active Mupirocin Calcium 2 % 1 application Externally bid to arm le sions for 10 day(s) May, Active Diclofenac Sodium 1.5 % 10drops to b knees Transderm al Four times a day for 90 day(s) Active Rivaroxaban 20 MG 1 tablet with food Orally Once a day for 90 day(s) Active Acetaminophen 500 MG 1 tablets as needed Orally every 6 hrs Active Mag-Ox 400 400 mg 1 tab(s) orally Once a day Active Blood Glucose Test - as directed one touch verio IQ E11.8 once daily Active Ferrous Sulfate 325 (65 Fe) MG 1 tablet Orally every other day f or 90 day(s) Active Multivital _ 1 tab(s) Orally Once a day Active Nortriptyline HCl 25 MG 1 capsule Orally every morning for 90 da y(s) May, Active Zofran ODT 4 mg 1 tablet Orally four times daily as needed N/V Active metFORMIN HCl 500 MG 1 tablet Orally AC BID for 90 day(s) Active Cholecalciferol 5000 UNIT 1 capsule Orally Once a day for 90 day(s) Active Pantoprazole Sodium 40 MG 1 tablet Orally Once a day for 30 Days Active Calcium 600 + D 600-400 MG-UNIT 1 tablet Orally Twice a day Active Cyclobenzaprine HCl 5 MG 1 tablet Orally Three times a day as needed muscle spasm for 90 day(s) Active Milk of Magnesia 400 MG/5ML 30 ml Orally before bedtime Active Claritin 10 MG 1 tablet Orally Once a day for 30 day(s) Active Meclizine HCl 25 MG 1 tablet as needed Orally BID for 30 day(s) Active Biotin 5000 MCG 1 capsule Orally Once a day for 30 day(s) Active Lancets - as directed one touch verio IQ E11.8 Daily for 90 days Aug, Active Clobetasol Propionate 0.05 % 1 application to affected area Externally Twice a day x 3 days with flare of hand rash for 90 Active Polyethylene Glycol - 17 gm orally in 8 oz liquid daily for 30 Days Active OneTouch Delica Plus [id number] - USE DIRECTED DAILY Active Atorvastatin Calcium 20 MG 1 tablet Orally Once a day for 90 day(s) Active Potassium Citrate ER 10 MEQ (1080 MG) 1 tablet with me als Orally Three times a day Active [facility] Fluticasone Propionate 50 MCG/ACT 2 sprays in each nostril Nasally every morning for 90 day(s) Active Carpal Tunnel Wrist Stabilizer - as directed _ at bedtime, G56 f or 99 days May, 2020 Active Cyanocobalamin 500 MCG 1 tablet Orally Once a day for 90 day(s) Active Cinnamon 500 MG as directed Orally A ctive PROCEDURES No Information RESULTS No Results REASON FOR VISIT New Refill Request MEDICAL (GENERAL) HISTORY Type Description Date Medical History T2DM NID Medical History h/o obesity s/p laproscopic gb 07/07/15-G arsalan Medical History lumbar DJD, mult-level, wors t L3/4 c moderate CCS, L2-S1 diffuse disc bulges by 05/30/2014 MRI Medical History peripheral edema secondary to venous ins ufficiency Medical History asymptomatic R nephrolithiasis December 2005 CT Medical History NALFD-seen by December 2005 [address] Medical History history of nicotine addiction Medical History hyperlipidemia 2B Medical History allergic rhinitis Medical History h/o recurrent B OM s/p B tubes/ graft, AD patching 16-18 yo Medical History L hip, mild DJD by 10/2013 xray Medical History cervical DJD-mild C3/4 by 03/2014 xray Medical History hypertension, essential Medical History h/o TIA 02/2014-MRI brain c T 2 punctate lesion L parietal SC WM, MRA carotids/brain normal x mild B vertebral disease, MRA brain normal Medical History tubulovillous adenoma c foca l high-grade dysplasia by 06/2016 colonoscopy-[facility] tubular adenoma-R Medical History bilateral hand OA-03/2016 - rheum w/u Medical History AD chronic TM perforation-fa iled graft in 30s ( perforation c successful graft in 30s) Medical History atrial fibrillation, paroxys mal-02/2017 Holter c PAF/Afl to 148 bpm-02/2017 EST inconclusive, MWLA 10 METs-Hdez Medical History DONG, severe 06/2017 NPSG AHI 34-Rechlin Medical History nephrolithiasis, R-10/2018 passed first stone of life Medical History ho severe LGI bleed from col on bx site-clips placed at asc and trans colon bx sites-R (12/30/19 bx, 01/16 clips placed) Medical History CHF, chronic, diastolic-grad e 1 thais dysfx, LVEF 59-01/15/20 TTE-Antecol Surgical History 2002 Surgical History tonsillectomy Surgical History ear surgery Surgical History Surgical History lap gb-Shahid 07/07/15 Surgical History CYSTOSCOPY 01/15/2019 Surgical History RIGHT ELBOW SURGERY 03/09/2019 Surgical History colonoscopy-[facility] 03/14 Hospitalization History first vaginal, second c section 1981 , 1988 Hospitalization History [facility] 2002 Hospitalization History nicholas-orbital cellulitis 08/03/13 Hospitalization History OS periorbital cellulitis-co njunctival culture c MSSA-no imaging 07/2013 Hospitalization History syncope, recurrent-CT head c minimal volume loss, -CXR, UCX NG, - BCX x 1, TTE as per hypertension in , - serial CIP/T-1 x 4, favored hypovolemia 2 anorexia 2 URI, medications c vestibular neuritis 03/02-10/08 Hospitalization History R PN, fever to 101.4, WBC 5. 5, UCX E coli-pansen, rxed c levo, CT AP mild R hydronep/uret s stone 08/11-08/14/19 Hospitalization History sx anemia hgb 5.6 2 bleeding from 12/30/19 colon bx site- tx 4u, clips placed at asc and trans colon bx sites-R, normal EGD 01/13- Goals Section No Information Health Concerns No Information MEDICAL EQUIPMENT No Information MENTAL STATUS No Information FUNCTIONAL STATUS No Information ASSESSMENTS Encounter Date Diagnosis Assessment Notes Treatment Notes Treatm ent Clinical Notes Jun, BPPV (benign paroxysmal positional vertigo) (ICD -10 - H81.10) PLAN OF TREATMENT Medication Medication Name Sig Start Date Stop Date [facility] Fluticasone Propionate 50 MCG/ACT 2 sprays in each nostril Nasally every morning for 90 day(s) Cyanocobalamin 500 MCG 1 tablet Orally Once a day for 90 day(s) Potassium Citrate ER 10 MEQ (1080 MG) 1 tablet with me als Orally Three times a day Carpal Tunnel Wrist Stabilizer - as directed _ at bedtime, G 56 for 99 days May, Cyclobenzaprine HCl 5 MG 1 tablet Orally Three times a day as needed muscle spasm for 90 day(s) Ferrous Sulfate 325 (65 Fe) MG 1 tablet Orally every other day f or 90 day(s) Meclizine HCl 25 MG 1 tablet as needed Orally BID for 30 day(s) Mupirocin Calcium 2 % 1 application Externally bid to arm le sions for 10 day(s) May, Zofran ODT 4 mg 1 tablet Orally four times daily as needed N/V Mag-Ox 400 400 mg 1 tab(s) orally Once a day Claritin 10 MG 1 tablet Orally Once a day for 30 day(s) Calcium 600 + D 600-400 MG-UNIT 1 tablet Orally Twice a day Multivital _ 1 tab(s) Orally Once a day Cholecalciferol 5000 UNIT 1 capsule Orally Once a day for 90 day (s) Atorvastatin Calcium 20 MG 1 tablet Orally Once a day for 90 day (s) Diclofenac Sodium 1.5 % 10drops to b knees Transderm al Four times a day for 90 day(s) Clobetasol Propionate 0.05 % 1 application to affected area Externally Twice a day x 3 days with flare of hand rash for 90 metFORMIN HCl 500 MG 1 tablet Orally AC BID for 90 day(s) Acetaminophen 500 MG 1 tablets as needed Orally every 6 hrs Polyethylene Glycol - 17 gm orally in 8 oz liquid daily for 30 Days May, Rivaroxaban 20 MG 1 tablet with food Orally Once a day for 90 da y(s) Nortriptyline HCl 25 MG 1 capsule Orally every morning for 9 0 day(s) May, Next Appt Details Provider Name:Ondina Gamez, 07-10 09:30:00 AM, [address] [place] [address], , [place], [address], Provider Name:Chaz Ruiz, 2021-10-25 1 1:45:00 AM, [address] [place] [address], , [place], [address], Insurance Providers Payer Name Payer Address Payer Phone Insured Name Patient Relati onship to Insured Coverage Start Date Coverage End Date BCBS OF [facility] [id number] [facility] [id number] [address] self
--- OUTSIDE RECORDS SUMMARY | 2021-09-05 11:18 | CCD ---
Author Author [employer] Organization [employer] [facility] Address Unknown Phone Unavailable Care Team Providers Care Sample Grinder Name Role Phone Chaz Ruiz Unavailable PROBLEMS Type Condition ICD9-CM Code BPS77-IP Code Onset Dates Condition S tatus W/U Status Risk SNOMED Code Notes Problem S/P gastric bypass Z98.84 Active confirmed 6 51003879 Problem Osteoarthritis, hand M19.049 Active confirmed 67507766 Problem BPPV (benign paroxysmal positional vertigo) H81.10 Active confirmed 144304325 Problem Vitamin D deficiency E55.9 Active confirmed 61000247 Problem Breast cancer screening Z12.39 Active confirmed 349057935 Problem Tubulovillous adenoma of colon D12.6 Active confir med 15156573 Problem Eczema of both hands L30.9 Active confirmed 553212068 Problem 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 Act luz confirmed 910391381065810 Problem Mixed hyperlipidemia E78.2 Active confirmed 812353502 Problem Primary osteoarthritis, right wrist M19.031 Acti ve confirmed 119448367493633 Problem DJD (degenerative joint disease), lumbar M47.816 Active confirmed 556255984 Problem Osteopenia M85.80 Active confirmed 445763396 Problem Allergic rhinitis, unspecified J30.9 Active confir med 63364876 Problem Impingement syndrome of right shoulder M75.41 A ctive confirmed 96881276042073244 Problem Impingement syndrome of left shoulder M75.42 Ac tive confirmed 423710794443699 Problem Diabetes mellitus type 2 with complications E11.8 Active confirmed 305922786 Problem DONG (obstructive sleep apnea) G47.33 Active confirm ed 06932711 Problem Recurrent sinusitis J32.9 Active confirmed 420007425 Problem B12 deficiency E53.8 Active confirmed 45008 4004 Problem Osteoarthritis of spine with radiculopathy, lumbar region M47.26 Active confirmed 780867596 Problem Primary osteoarthritis of both knees M17.0 Act luz confirmed 532660415 Problem Nephrolithiasis N20.0 Active confirmed 9557 0007 Problem 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 Active confirmed 292700360 Problem Constipation, chronic K59.09 Active confirmed 984301846 Problem Bilateral carpal tunnel syndrome G56.03 Active conf irmed 21504953 Problem Mitral valve disease I05.9 Active confirmed 43730674 Problem Cervical spondylosis M47.812 Active confirmed 080015007 Problem IT band syndrome, right M76.31 Active confirmed 631369623 Problem Paroxysmal atrial fibrillation I48.0 Active confir med 589656488 Problem Iron deficiency anemia, unspecified iron deficiency an emia type D50.9 Active confirmed 87718748 Problem Peripheral neuropathy G62.9 Active confirmed 091260376 Problem Obstructive uropathy N13.9 Active confirmed 3293820 Problem Colon cancer screening Z12.11 Active confirmed 825517167 ALLERGIES No Known Allergies ENCOUNTERS from 1965 to 2021-07-05 Encounter Location Date Provider Diagnosis [facility] [address] [phone] [place] [address] May, Chaz Ruiz IMMUNIZATIONS Vaccine Route Administration Date Status COVID-19 [...] Education Language: Question Answer Notes Languages spoken: Colombian Druze: Question Answer Notes Druze 06 Yazdanism Sexual Hx: Question Answer Notes Had sex [...] for 30 Days Active OneTouch Delica Plus [id number] - USE DIRECTED DAILY Active Atorvastatin Calcium [...] Information RESULTS No Results REASON FOR VISIT MRI MEDICAL (GENERAL) HISTORY Type Description Date Medical [...] History first vaginal, second c section [address] [facility] 2002 Hospitalization History nicholas-orbital cellulitis 08/03/13 [...] No Information FUNCTIONAL STATUS No Information ASSESSMENTS No Information PLAN OF TREATMENT Medication Medication Name Sig [...] Details Provider Name:Ondina Gamez, 07-10 09:30:00 AM, [address] [place] [address] , [place], [address], Provider Name:Chaz Ruiz, 2021-10-25 1 1:45:00 AM, [address] [place] [address] , [place], [address], Insurance Providers Payer Name Payer Address Payer Phone Insured Name Patient Relati onship to Insured Coverage Start Date Coverage End Date BCBS OF [facility] [id number] [place] [id number] OSORIO PINO
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
--- OUTSIDE RECORDS SUMMARY | 2021-09-05 11:18 | CCD ---
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 Active confirmed 03054850 Problem BPPV (benign paroxysmal positional vertigo) H81.10 Active confirmed 825010418 Problem Vitamin D deficiency E55.9 Active confirmed 97610507 Problem Breast cancer screening Z12.39 Active confirmed 779400344 Problem Tubulovillous adenoma of colon D12.6 Active confir med 13687723 Problem Eczema of both hands L30.9 Active confirmed 863714383 Problem 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 Act luz confirmed 482080124549105 Problem Mixed hyperlipidemia E78.2 Active confirmed 092328674 Problem Primary osteoarthritis, right wrist M19.031 Acti ve confirmed 514780763591259 Problem DJD (degenerative joint disease), lumbar M47.816 Active confirmed 921942787 Problem Osteopenia M85.80 Active confirmed 677439777 Problem Allergic rhinitis, unspecified J30.9 Active confir med 61783129 Problem Impingement syndrome of right shoulder M75.41 A ctive confirmed 02603374910613307 Problem Impingement syndrome of left shoulder M75.42 Ac tive confirmed 356605213687369 Problem Diabetes mellitus type 2 with complications E11.8 Active confirmed 085007339 Problem DONG (obstructive sleep apnea) G47.33 Active confirm ed 73433425 Problem Recurrent sinusitis J32.9 Active confirmed 985559253 Problem B12 deficiency E53.8 Active confirmed 24673 4004 Problem Osteoarthritis of spine with radiculopathy, lumbar region M47.26 Active confirmed 405131639 Problem Primary osteoarthritis of both knees M17.0 Act luz confirmed 321579332 Problem Nephrolithiasis N20.0 Active confirmed 9557 0007 Problem 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 Active confirmed 931397742 Problem Constipation, chronic K59.09 Active confirmed 714940585 Problem Bilateral carpal tunnel syndrome G56.03 Active conf irmed 08974146 Problem Mitral valve disease I05.9 Active confirmed 76997043 Problem Cervical spondylosis M47.812 Active confirmed 972252847 Problem IT band syndrome, right M76.31 Active confirmed 699605785 Problem Paroxysmal atrial fibrillation I48.0 Active confir med 739579622 Problem Iron deficiency anemia, unspecified iron deficiency an emia type D50.9 Active confirmed 17759158 Problem Peripheral neuropathy G62.9 Active confirmed 402434489 Problem Obstructive uropathy N13.9 Active confirmed 3287716 Problem Colon cancer screening Z12.11 Active confirmed 939911032 ALLERGIES No Known Allergies ENCOUNTERS from 1965 to 2021-06-21 Encounter Location Date Provider Diagnosis [facility] [address] [facility] [phone] [place] [address] May, Chaz Ruiz IMMUNIZATIONS Vaccine Route Administration [...] Education Language: Question Answer Notes Languages spoken: [place] Taoist: Question Answer Notes Taoist 06 Moravian Sexual Hx: Question Answer Notes Had sex [...] Notes Start Da te End Date Status Blood Glucose Test - as directed one touch verio IQ E11.8 once daily Active Ferrous Sulfate 325 (65 Fe) MG 1 tablet Orally every other day f or 90 day(s) Active Polyethylene Glycol - 17 gm orally in 8 oz liquid daily for 30 D ays May, Active Mupirocin Calcium 2 % 1 application Externally bid to arm le sions for 10 day(s) May, Active Nortriptyline HCl 25 MG 1 capsule Orally every morning for 90 da y(s) May, Active Zofran ODT 4 mg 1 tablet Orally four times daily as needed N/V Active Acetaminophen 500 MG 1 tablets as needed Orally every 6 hrs Active Mag-Ox 400 400 mg 1 tab(s) orally Once a day Active Multivital _ 1 tab(s) Orally Once a day Active Biotin 5000 MCG 1 capsule Orally Once a day for 30 day(s) Active Meclizine HCl 25 MG 1 tablet as needed Orally BID for 30 day(s) Active metFORMIN HCl 500 MG 1 tablet Orally AC BID for 90 day(s) Active Cholecalciferol 5000 UNIT 1 capsule Orally Once a day for 90 day(s) Active Pantoprazole Sodium 40 MG 1 tablet Orally Once a day for 30 Days Active Calcium 600 + D 600-400 MG-UNIT 1 tablet Orally Twice a day Active OneTouch Delica Plus [id number] - USE DIRECTED DAILY Active Lancets - as directed one touch verio IQ E11.8 Daily for 90 days Aug, Active Claritin 10 MG 1 tablet Orally Once a day for 30 day(s) Active Cyclobenzaprine HCl 5 MG 1 tablet Orally Three times a day as needed muscle spasm for 90 day(s) Active Milk of Magnesia 400 MG/5ML 30 ml Orally before bedtime Active Rivaroxaban 20 MG 1 tablet with food Orally Once a day for 90 day(s) Active Clobetasol Propionate 0.05 % 1 application to affected area Externally Twice a day x 3 days with flare of hand rash for 90 Active Polyethylene Glycol - 17 gm orally in 8 oz liquid daily for 30 Days Active Diclofenac Sodium 1.5 % 10drops to b knees Transderm al Four times a day for 90 day(s) Active Atorvastatin Calcium 20 MG 1 tablet [...] Information RESULTS No Results REASON FOR VISIT medication MEDICAL (GENERAL) HISTORY Type Description Date Medical [...] vaginal, second c section 1981 Hospitalization History [facility] 2002 Hospitalization History nicholas-orbital cellulitis 08/03/13 Hospitalization [...] bedtime, G 56 for 99 days May, Diclofenac Sodium 1.5 % 10drops to b knees Transderm al Four times a day for 90 day(s) Mag-Ox 400 400 mg 1 tab(s) orally Once a day Cyclobenzaprine HCl 5 MG 1 tablet Orally Three times a day as needed muscle spasm for 90 day(s) Ferrous Sulfate 325 (65 Fe) MG 1 tablet Orally every other day f or 90 day(s) Meclizine HCl 25 MG 1 tablet as needed Orally BID for 30 day(s) Zofran ODT 4 mg 1 tablet Orally four times daily as needed N/V Claritin 10 MG 1 tablet Orally Once a day for 30 day(s) Calcium 600 + D 600-400 MG-UNIT 1 tablet Orally Twice a day Multivital _ 1 tab(s) Orally Once a day Cholecalciferol 5000 UNIT 1 capsule Orally Once a day for 90 day (s) Atorvastatin Calcium 20 MG 1 tablet Orally Once a day for 90 day (s) Polyethylene Glycol - 17 gm orally in 8 oz liquid daily for 30 Days May, Clobetasol Propionate 0.05 % 1 application to affected area Externally Twice a day x 3 days with flare of hand rash for 90 metFORMIN HCl 500 MG 1 tablet Orally AC BID for 90 day(s) Nortriptyline HCl 25 MG 1 capsule Orally every morning for 9 0 day(s) May, Acetaminophen 500 MG 1 tablets as needed Orally every 6 hrs Mupirocin Calcium 2 % 1 application Externally bid to arm le sions for 10 day(s) May, Rivaroxaban 20 MG 1 tablet with food Orally Once a day for 90 da y(s) Next Appt Details Provider Name:Ondina Gamez, 8 09:30:00 AM, [address] [place] [address] , [place], [address], Provider Name:Chaz Ruiz, 2021-10-25 1 1:45:00 AM, [address] [place] [address] , [place], [address], Insurance Providers Payer Name Payer Address Payer Phone Insured Name Patient Relati onship to Insured Coverage Start Date Coverage End Date BCBS OF [facility] [id number] [place] [id number] OSORIO PINO
--- OUTSIDE RECORDS SUMMARY | 2021-09-05 11:18 | CCD ---
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 Active confirmed 20233562 Problem BPPV (benign paroxysmal positional vertigo) H81.10 Active confirmed 546197298 Problem Vitamin D deficiency E55.9 Active confirmed 51386263 Problem Breast cancer screening Z12.39 Active confirmed 837704990 Problem Tubulovillous adenoma of colon D12.6 Active confir med 80491093 Problem Eczema of both hands L30.9 Active confirmed 142225488 Problem 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 Act luz confirmed 069753974929465 Problem Mixed hyperlipidemia E78.2 Active confirmed 042611105 Problem Primary osteoarthritis, right wrist M19.031 Acti ve confirmed 120190866856605 Problem DJD (degenerative joint disease), lumbar M47.816 Active confirmed 058681408 Problem Osteopenia M85.80 Active confirmed 693112410 Problem Allergic rhinitis, unspecified J30.9 Active confir med 27837181 Problem Impingement syndrome of right shoulder M75.41 A ctive confirmed 58882433997200951 Problem Impingement syndrome of left shoulder M75.42 Ac tive confirmed 895401596684305 Problem Diabetes mellitus type 2 with complications E11.8 Active confirmed 456145253 Problem DONG (obstructive sleep apnea) G47.33 Active confirm ed 42200850 Problem Recurrent sinusitis J32.9 Active confirmed 742597501 Problem B12 deficiency E53.8 Active confirmed 67390 4004 Problem Osteoarthritis of spine with radiculopathy, lumbar region M47.26 Active confirmed 293857355 Problem Primary osteoarthritis of both knees M17.0 Act luz confirmed 790131379 Problem Nephrolithiasis N20.0 Active confirmed 9557 0007 Problem 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 Active confirmed 708362354 Problem Constipation, chronic K59.09 Active confirmed 309199101 Problem Bilateral carpal tunnel syndrome G56.03 Active conf irmed 61698399 Problem Mitral valve disease I05.9 Active confirmed 43064675 Problem Cervical spondylosis M47.812 Active confirmed 818195710 Problem IT band syndrome, right M76.31 Active confirmed 351252299 Problem Paroxysmal atrial fibrillation I48.0 Active confir med 192001135 Problem Iron deficiency anemia, unspecified iron deficiency an emia type D50.9 Active confirmed 93280941 Problem Peripheral neuropathy G62.9 Active confirmed 574770046 Problem Obstructive uropathy N13.9 Active confirmed 7259333 Problem Colon cancer screening Z12.11 Active confirmed 571098661 ALLERGIES No Known Allergies ENCOUNTERS from 1965 to 2021-08-10 Encounter Location Date Provider Diagnosis [facility] [address] [facility] [phone] [place] [address] Jul, 2021 Chaz Ruiz IMMUNIZATIONS Vaccine Route Administration Date [...] Education Language: Question Answer Notes Languages spoken: Barbadian Synagogue: Question Answer Notes Synagogue 06 Congregational Sexual Hx: Question Answer Notes Had sex [...] Notes Start Da te End Date Status Acetaminophen 500 MG 1 tablets as needed Orally every 6 hrs Active Nortriptyline HCl 50 MG 1 capsule Orally every morning for 30 da ys May, Active Cinnamon 500 MG as directed Orally A ctive Mupirocin Calcium 2 % 1 application Externally bid to arm le sions for 10 day(s) May, Active Potassium Citrate ER 10 MEQ (1080 MG) 1 tablet with me als Orally Three times a day Active metFORMIN HCl 500 MG 1 tablet Orally AC BID for 90 day(s) Active OneTouch Delica Plus [id number] - USE DIRECTED DAILY Active Rivaroxaban 20 MG 1 tablet with food Orally Once a day for 90 day(s) Active Ferrous Sulfate 325 (65 Fe) MG 1 tablet Orally every other day f or 90 day(s) Active Cyanocobalamin 500 MCG 1 tablet Orally Once a day for 90 day(s) Active Zofran ODT 4 mg 1 tablet Orally four times daily as needed N/V Active Multivital _ 1 tab(s) Orally Once a day Active Blood Glucose Test - as directed one touch verio IQ E11.8 once daily Active Cyclobenzaprine HCl 5 MG 1 tablet Orally Three times a day as needed muscle spasm for 90 day(s) Active Calcium 600 + D 600-400 MG-UNIT 1 tablet Orally Twice a day Active Pantoprazole Sodium 40 MG 1 tablet Orally Once a day for 30 Days Active Meclizine HCl 25 MG 1 tablet as needed Orally BID for 30 day(s) Active Polyethylene Glycol - 17 gm orally in 8 oz liquid daily for 30 Days Active Diclofenac Sodium 1.5 % 10drops to b knees Transderm al Four times a day for 90 day(s) Active Claritin 10 MG 1 tablet Orally Once a day for 30 day(s) Active [facility] Fluticasone Propionate 50 MCG/ACT 2 sprays in each nostril Nasally every morning for 90 day(s) Active Mag-Ox 400 400 mg 1 tab(s) orally Once a day Active Atorvastatin Calcium 20 MG 1 tablet Orally Once a day for 90 day(s) Active Clobetasol Propionate 0.05 % 1 application to affected area Externally Twice a day x 3 days with flare of hand rash for 90 Active Cholecalciferol 5000 UNIT 1 capsule Orally Once a day for 90 day(s) Active Polyethylene Glycol - 17 gm orally in 8 oz liquid daily for 30 D ays May, Active Carpal Tunnel Wrist Stabilizer - as directed _ at bedtime, G56 f or 99 days May, Active Lancets - as directed one touch verio IQ E11.8 Daily for 90 days Aug, Active Milk of Magnesia 400 MG/5ML 30 ml Orally before bedtime Active Biotin 5000 MCG 1 capsule Orally Once a day for 30 day(s) Active PROCEDURES No Information RESULTS No Results REASON FOR VISIT body aches, sore throat, fever MEDICAL (GENERAL) HISTORY Type Description Date Medical [...] thais dysfx, LVEF 60-01/15/20 TTE-Antecol Surgical History [facility] 2002 Surgical History tonsillectomy Surgical History ear surgery Surgical History Surgical History lap gb-Shahid 07/07/15 Surgical History CYSTOSCOPY 01/15/2019 Surgical History RIGHT ELBOW SURGERY 03/09/2019 Surgical History colonoscopy-Reindl 03/14 Hospitalization History first vaginal, second c section 1981 , 1988 Hospitalization History [facility] 2002 Hospitalization History nicholas-orbital cellulitis [...] Medication Name Sig Start Date Stop Date Nortriptyline HCl 50 MG 1 capsule Orally every morning for 30 da ys May, Next Appt Details Provider Name:Ondina Gamez, 08-14 09:00:00 AM, [address] [place] [address], , [place], [address], Provider Name:Chaz Ruiz, 2021-10-25 1 1:45:00 AM, [address] [facility], , [place], [address], Insurance Providers Payer Name Payer Address Payer Phone Insured Name Patient Relati onship to Insured Coverage Start Date Coverage End Date [facility] [phone] [facility] [id number] OSORIO PINO self
--- OUTSIDE RECORDS SUMMARY | 2021-09-05 11:18 | CCD ---
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 Active confirmed 07576330 Problem BPPV (benign paroxysmal positional vertigo) H81.10 Active confirmed 765698182 Problem Vitamin D deficiency E55.9 Active confirmed 11039979 Problem Breast cancer screening Z12.39 Active confirmed 229323008 Problem Tubulovillous adenoma of colon D12.6 Active confir med 38928482 Problem Eczema of both hands L30.9 Active confirmed 765886321 Problem 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 Act luz confirmed 272341209715461 Problem Mixed hyperlipidemia E78.2 Active confirmed 959203020 Problem Primary osteoarthritis, right wrist M19.031 Acti ve confirmed 428461401846395 Problem DJD (degenerative joint disease), lumbar M47.816 Active confirmed 668995717 Problem Osteopenia M85.80 Active confirmed 709036391 Problem Allergic rhinitis, unspecified J30.9 Active confir med 34758912 Problem Impingement syndrome of right shoulder M75.41 A ctive confirmed 50730680158554796 Problem Impingement syndrome of left shoulder M75.42 Ac tive confirmed 731957730437306 Problem Diabetes mellitus type 2 with complications E11.8 Active confirmed 165808634 Problem DONG (obstructive sleep apnea) G47.33 Active confirm ed 77868123 Problem Recurrent sinusitis J32.9 Active confirmed 966001565 Problem B12 deficiency E53.8 Active confirmed 87309 4004 Problem Osteoarthritis of spine with radiculopathy, lumbar region M47.26 Active confirmed 452242781 Problem Primary osteoarthritis of both knees M17.0 Act luz confirmed 480937861 Problem Nephrolithiasis N20.0 Active confirmed 9557 0007 Problem 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 Active confirmed 029302980 Problem Constipation, chronic K59.09 Active confirmed 528746670 Problem Bilateral carpal tunnel syndrome G56.03 Active conf irmed 23738210 Problem Mitral valve disease I05.9 Active confirmed 79421288 Problem Cervical spondylosis M47.812 Active confirmed 548741178 Problem IT band syndrome, right M76.31 Active confirmed 432609973 Problem Paroxysmal atrial fibrillation I48.0 Active confir med 660891137 Problem Iron deficiency anemia, unspecified iron deficiency an emia type D50.9 Active confirmed 70193532 Problem Peripheral neuropathy G62.9 Active confirmed 617852654 Problem Obstructive uropathy N13.9 Active confirmed 3833015 Problem Colon cancer screening Z12.11 Active confirmed 024937760 ALLERGIES No Known Allergies ENCOUNTERS from 1965 to 2021-06-27 Encounter Location Date Provider Diagnosis [facility] [address] [facility] [phone] [place] [address] Jun, Chaz Ruiz IMMUNIZATIONS Vaccine Route Administration Date [...] Question Answer Notes Languages spoken: [place] Protestant: Question Answer Notes Protestant 06 Yarsanism Sexual Hx: Question Answer Notes Had sex in the last 12 months (vaginal, oral, or anal)? Yes Have you ever had an STD? No with Men only Use protection? No Drug and Alcohol Question Answer Notes Interpretation: No problems reported Total Score: 0 Alcohol Screening: Question Answer Notes Did you [...] Twice a day Active OneTouch Delica Plus [id number] - USE DIRECTED DAILY Active Lancets - [...] Information RESULTS No Results REASON FOR VISIT physical therapy cost too much MEDICAL (GENERAL) HISTORY Type Description Date Medical [...] thais dysfx, LVEF 60-01/15/20 TTE-Antecol Surgical History HB2002 Surgical History tonsillectomy Surgical History ear surgery Surgical History Surgical History lap gb-Shahid 07/07/15 Surgical History CYSTOSCOPY 01/15/2019 Surgical History RIGHT ELBOW SURGERY 03/09/2019 Surgical History colonoscopy-Reindl 03/14 Hospitalization History first vaginal, second c section 1981 , 1988 Hospitalization History [facility] 2002 [...] bedtime, G 56 for 99 days May, 2020 Diclofenac Sodium 1.5 % 10drops to b [...] y(s) Next Appt Details Provider Name:Ondina Gamez, 07-10 09:30:00 AM, [address] [place] [address] , [place], [address], Provider Name:Chaz Ruiz, 2021-10-25 1 1:45:00 AM, [address] [place] [address] , [place], [address], Insurance Providers Payer Name Payer Address Payer Phone Insured Name Patient Relati onship to Insured Coverage Start Date Coverage End Date BCBS OF [facility] [phone] [place] [id number] OSORIO PINO
--- OUTSIDE RECORDS SUMMARY | 2021-09-05 11:18 | CCD ---
Author Author [facility] Organization [facility] [facility] Address Unknown Phone Unavailable Care Team Providers Care Calender Roll Press Operator Name Role Phone Ondina Gamez Unavailable PROBLEMS Type Condition ICD9-CM Code [id number] Code Onset Dates Condition S tatus W/U Status Risk SNOMED Code Notes Problem S/P gastric bypass Z98.84 Active confirmed 6 03580977 Problem Osteoarthritis, hand M19.049 Active confirmed 95930331 Problem BPPV (benign paroxysmal positional vertigo) H81.10 Active confirmed 893306454 Problem Vitamin D deficiency E55.9 Active confirmed 04354377 Problem Breast cancer screening Z12.39 Active confirmed 914599483 Problem Tubulovillous adenoma of colon D12.6 Active confir med 43551128 Problem Eczema of both hands L30.9 Active confirmed 831893275 Problem 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 Act luz confirmed 371791823644237 Problem Mixed hyperlipidemia E78.2 Active confirmed 078500244 Problem Primary osteoarthritis, right wrist M19.031 Acti ve confirmed 661925768874594 Problem DJD (degenerative joint disease), lumbar M47.816 Active confirmed 028813307 Problem Osteopenia M85.80 Active confirmed 777027009 Problem Allergic rhinitis, unspecified J30.9 Active confir med 60669054 Problem Impingement syndrome of right shoulder M75.41 A ctive confirmed 69523638966225595 Problem Impingement syndrome of left shoulder M75.42 Ac tive confirmed 024679127869062 Problem Diabetes mellitus type 2 with complications E11.8 Active confirmed 694684067 Problem DONG (obstructive sleep apnea) G47.33 Active confirm ed 21734467 Problem Recurrent sinusitis J32.9 Active confirmed 569835860 Problem B12 deficiency E53.8 Active confirmed 81921 4004 Problem Osteoarthritis of spine with radiculopathy, lumbar region M47.26 Active confirmed 221760795 Problem Primary osteoarthritis of both knees M17.0 Act luz confirmed 826187364 Problem Nephrolithiasis N20.0 Active confirmed 9557 0007 Problem 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 Active confirmed 563313394 Problem Constipation, chronic K59.09 Active confirmed 533544253 Problem Bilateral carpal tunnel syndrome G56.03 Active conf irmed 95568412 Problem Mitral valve disease I05.9 Active confirmed 87276683 Problem Cervical spondylosis M47.812 Active confirmed 316861483 Problem IT band syndrome, right M76.31 Active confirmed 693022722 Problem Paroxysmal atrial fibrillation I48.0 Active confir med 998908002 Problem Iron deficiency anemia, unspecified iron deficiency an emia type D50.9 Active confirmed 41156973 Problem Peripheral neuropathy G62.9 Active confirmed 774355034 Problem Obstructive uropathy N13.9 Active confirmed 8329380 Problem Colon cancer screening Z12.11 Active confirmed 398532360 ALLERGIES No Known Allergies ENCOUNTERS from 1965 to 2021-07-12 Encounter Location Date Provider Diagnosis [place] [address] [facility] [phone] [place] [address] 17 Jun, 2021 Ondina Gamez Cervicogenic headache R51.9 IMMUNIZATIONS Vaccine Route Administration Date Status COVID-19 [...] Education Language: Question Answer Notes Languages spoken: Lithuanian Religious: Question Answer Notes Religious 06 Baptism Sexual Hx: Question Answer Notes Had sex [...] REASON FOR REFERRAL No Information VITAL SIGNS Weight 172 lbs Jun, Weight-kg 78.02 kg Jun, Height 62 in Jun, BMI 31.46 kg/m2 Jun, Heart Rate 72 /min Jun, Respiratory Rate 20 /min Jun, Temperature 97.8 degrees Fahrenheit Jun, Oximetry 97 Jun, Blood pressure systolic 116 mm Hg Jun, Blood pressure diastolic 72 mm Hg Jun, MEDICATIONS Medication SIG (Take, Route, Frequency, Duration) [...] for 90 day(s) Active OneTouch Delica Plus [id number] - USE DIRECTED DAILY Active Rivaroxaban 20 MG 1 tablet with food Orally Once a day for 90 day(s) Active Ferrous Sulfate 325 (65 Fe) MG 1 tablet Orally every other day f or day(s) Active Cyanocobalamin 500 MCG 1 tablet [...] Information RESULTS No Results REASON FOR VISIT 3-4W Juan Antonio recheck MARY/CTS MEDICAL (GENERAL) HISTORY Type Description Date Medical [...] thais dysfx, LVEF 60-01/15/20 TTE-Antecol Surgical History [facility] 2002 Surgical History tonsillectomy Surgical History ear [...] Treatment Notes Treatm ent Clinical Notes Jun, Cervicogenic headache (ICD-10 - R51.9) Discussed with patient that since the amitriptyline nortriptyline has helped to some degree we will increase that to 50 mg per day. Patient will continue physical therapy for now. We will follow up with her in one month. The plan at that time if symptoms have not improved will be to possibly order an MRI of the cervical spine and look into possibly her receiving an epidural. Patient agrees with plan Jun, Other Total time alexandr ng for the patient on the day of the encounter was 20 min PLAN OF TREATMENT Medication Medication Name Sig Start Date Stop Date Nortriptyline HCl 50 MG 1 capsule Orally every morning for 30 da ys May, Treatment Notes Assessment Notes Clinical Notes Cervicogenic headache Discussed with virginia sepulveda that since the amitriptyline nortriptyline has helped to some degree we will increase that to 50 mg per day. Patient will continue physical therapy for now. We will follow up with her in one month. The plan at that time if symptoms have not improved will be to possibly order an MRI of the cervical spine and look into possibly her receiving an epidural. Patient agrees with plan Next Appt Details with Juan Antonio in 4 weeks; recheck HAs Reason : Provider Name:Ondina Gamez, 9-14 09:00:00 AM, [address] [place] [address] , [place], [address], Provider Name:Chaz Ruiz, 2021-10-25 1 1:45:00 AM, [address] [place] [address] , [place], [address], Insurance Providers Payer Name Payer Address Payer Phone Insured Name Patient Relati onship to Insured Coverage Start Date Coverage End Date BCBS OF [facility] [id number] [facility] [id number] [address]
--- OUTSIDE RECORDS SUMMARY | 2021-09-05 11:18 | CCD ---
Author Author [facility] Organization [facility] Address Unknown Phone Unavailable Care Team Providers Care Concrete Saw Operator Name Role Phone Chaz Ruiz Unavailable PROBLEMS Type Condition ICD9-CM Code [id number] Code Onset Dates Condition S tatus W/U Status Risk SNOMED Code Notes Problem S/P gastric bypass Z98.84 Active confirmed 6 74515877 Problem Osteoarthritis, hand M19.049 Active confirmed 31670716 Problem BPPV (benign paroxysmal positional vertigo) H81.10 Active confirmed 406321515 Problem Vitamin D deficiency E55.9 Active confirmed 43584768 Problem Breast cancer screening Z12.39 Active confirmed 673137783 Problem Tubulovillous adenoma of colon D12.6 Active confir med 47860789 Problem Eczema of both hands L30.9 Active confirmed 406125804 Problem 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 Act luz confirmed 697232720037575 Problem Mixed hyperlipidemia E78.2 Active confirmed 874058557 Problem Primary osteoarthritis, right wrist M19.031 Acti ve confirmed 586735941106573 Problem DJD (degenerative joint disease), lumbar M47.816 Active confirmed 332823327 Problem Osteopenia M85.80 Active confirmed 782926894 Problem Allergic rhinitis, unspecified J30.9 Active confir med 44907589 Problem Impingement syndrome of right shoulder M75.41 A ctive confirmed 09601279203770953 Problem Impingement syndrome of left shoulder M75.42 Ac tive confirmed 605271641885626 Problem Diabetes mellitus type 2 with complications E11.8 Active confirmed 191092341 Problem DONG (obstructive sleep apnea) G47.33 Active confirm ed 76995102 Problem Recurrent sinusitis J32.9 Active confirmed 000222298 Problem B12 deficiency E53.8 Active confirmed 88344 4004 Problem Osteoarthritis of spine with radiculopathy, lumbar region M47.26 Active confirmed 809441201 Problem Primary osteoarthritis of both knees M17.0 Act luz confirmed 856168700 Problem Nephrolithiasis N20.0 Active confirmed 9557 0007 Problem 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 Active confirmed 586012432 Problem Constipation, chronic K59.09 Active confirmed 974402334 Problem Bilateral carpal tunnel syndrome G56.03 Active conf irmed 74680241 Problem Mitral valve disease I05.9 Active confirmed 43058946 Problem Cervical spondylosis M47.812 Active confirmed 685538169 Problem IT band syndrome, right M76.31 Active confirmed 337262873 Problem Paroxysmal atrial fibrillation I48.0 Active confir med 267880560 Problem Iron deficiency anemia, unspecified iron deficiency an emia type D50.9 Active confirmed 46467590 Problem Peripheral neuropathy G62.9 Active confirmed 958574032 Problem Obstructive uropathy N13.9 Active confirmed 5283504 Problem Colon cancer screening Z12.11 Active confirmed 085044733 ALLERGIES No Known Allergies ENCOUNTERS from 1965 to 2021-06-20 Encounter Location Date Provider Diagnosis [facility] [address] [facility] [phone] [place] [address] May, Chaz Ruiz IMMUNIZATIONS Vaccine Route Administration [...] Education Language: Question Answer Notes Languages spoken: Gabonese Holiness: Question Answer Notes Holiness 06 Syn[employer] Sexual Hx: Question Answer Notes Had sex [...] Twice a day Active OneTouch Delica Plus [id number] - USE DIRECTED DAILY Active Lancets - [...] Information RESULTS No Results REASON FOR VISIT No Information MEDICAL (GENERAL) HISTORY Type Description Date Medical [...] vaginal, second c section 1981 Hospitalization History [facility] 2002 Hospitalization History nicholas-orbital cellulitis 08/03/13 [...] y(s) Next Appt Details Provider Name:Ondina Gamez, 8-24 09:30:00 AM, [address] [place] [address] , [place], [address], Provider Name:Chaz Ruiz, 2021-10-25 1 1:45:00 AM, [address] [place] [address] , [place], [address], Insurance Providers Payer Name Payer Address Payer Phone Insured Name Patient Relati onship to Insured Coverage Start Date Coverage End Date BCBS OF [facility] [phone] [place] [id number] [place]
--- OUTSIDE RECORDS SUMMARY | 2021-09-05 11:18 | CCD ---
Author Author [facility] Organization [facility] Address Unknown Phone Unavailable Care Team Providers Care Nitroglycerin Supervisor Name Role Phone Chaz Ruiz Unavailable PROBLEMS Type Condition ICD9-CM Code ART27-KA Code Onset Dates Condition S tatus W/U Status Risk SNOMED Code Notes Problem S/P gastric bypass Z98.84 Active confirmed 6 63524326 Problem Osteoarthritis, hand M19.049 Active confirmed 55712529 Problem BPPV (benign paroxysmal positional vertigo) H81.10 Active confirmed 471558998 Problem Vitamin D deficiency E55.9 Active confirmed 66573407 Problem Breast cancer screening Z12.39 Active confirmed 625603246 Problem Tubulovillous adenoma of colon D12.6 Active confir med 67126997 Problem Eczema of both hands L30.9 Active confirmed 020284904 Problem 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 Act luz confirmed 162739550290208 Problem Mixed hyperlipidemia E78.2 Active confirmed 356699289 Problem Primary osteoarthritis, right wrist M19.031 Acti ve confirmed 308217462208325 Problem DJD (degenerative joint disease), lumbar M47.816 Active confirmed 718589928 Problem Osteopenia M85.80 Active confirmed 221298503 Problem Allergic rhinitis, unspecified J30.9 Active confir med 03165487 Problem Impingement syndrome of right shoulder M75.41 A ctive confirmed 41427822357718396 Problem Impingement syndrome of left shoulder M75.42 Ac tive confirmed 188307351166737 Problem Diabetes mellitus type 2 with complications E11.8 Active confirmed 924333467 Problem DONG (obstructive sleep apnea) G47.33 Active confirm ed 25978812 Problem Recurrent sinusitis J32.9 Active confirmed 604574569 Problem B12 deficiency E53.8 Active confirmed 98120 4004 Problem Osteoarthritis of spine with radiculopathy, lumbar region M47.26 Active confirmed 551307679 Problem Primary osteoarthritis of both knees M17.0 Act luz confirmed 111679231 Problem Nephrolithiasis N20.0 Active confirmed 9557 0007 Problem 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 Active confirmed 416922559 Problem Constipation, chronic K59.09 Active confirmed 265935501 Problem Bilateral carpal tunnel syndrome G56.03 Active conf irmed 70079004 Problem Mitral valve disease I05.9 Active confirmed 67459834 Problem Cervical spondylosis M47.812 Active confirmed 297572114 Problem IT band syndrome, right M76.31 Active confirmed 113142122 Problem Paroxysmal atrial fibrillation I48.0 Active confir med 928506622 Problem Iron deficiency anemia, unspecified iron deficiency an emia type D50.9 Active confirmed 22819798 Problem Peripheral neuropathy G62.9 Active confirmed 366237436 Problem Obstructive uropathy N13.9 Active confirmed 9832481 Problem Colon cancer screening Z12.11 Active confirmed 318410473 ALLERGIES No Known Allergies ENCOUNTERS from 1965 to 2021-06-21 Encounter Location Date Provider Diagnosis [facility] [address] [facility] [phone] [place] [address] May, Chaz Ruiz IMMUNIZATIONS Vaccine Route Administration [...] Education Language: Question Answer Notes Languages spoken: Malaysian Buddhism: Question Answer Notes Buddhism 06 Oriental Orthodox Sexual Hx: Question Answer Notes Had sex [...] Twice a day Active OneTouch Delica Plus [id number] - USE DIRECTED DAILY Active Lancets - [...] Information RESULTS No Results REASON FOR VISIT blood work MEDICAL (GENERAL) HISTORY Type Description Date Medical [...] Details Provider Name:Ondina Gamez, 8-24 09:30:00 AM, [address] [place] [address] , [place], [address], Provider Name:Chaz Ruiz, 2021-10-25 1 1:45:00 AM, [address] [place] [address] , [place], [address], Insurance Providers Payer Name Payer Address Payer Phone Insured Name Patient Relati onship to Insured Coverage Start Date Coverage End Date BCBS OF [facility] [id number] [place] [id number] [place] [place]
--- OUTSIDE RECORDS SUMMARY | 2021-09-05 11:18 | CCD ---
Author Author [facility] Organization [facility] [employer] [facility] Address Unknown Phone Unavailable Care Team Providers Care Shirt Folding Machine Operator Name Role Phone Chaz Ruiz Unavailable PROBLEMS Type Condition ICD9-CM Code BAA09-GQ Code Onset Dates Condition S tatus W/U Status Risk SNOMED Code Notes Problem S/P gastric bypass Z98.84 Active confirmed 6 21829128 Problem Osteoarthritis, hand M19.049 Active confirmed 61019981 Problem BPPV (benign paroxysmal positional vertigo) H81.10 Active confirmed 786477673 Problem Vitamin D deficiency E55.9 Active confirmed 89903150 Problem Breast cancer screening Z12.39 Active confirmed 362306467 Problem Tubulovillous adenoma of colon D12.6 Active confir med 98707183 Problem Eczema of both hands L30.9 Active confirmed 852233566 Problem 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 Act luz confirmed 075752388531200 Problem Mixed hyperlipidemia E78.2 Active confirmed 302282658 Problem Primary osteoarthritis, right wrist M19.031 Acti ve confirmed 642088934164513 Problem DJD (degenerative joint disease), lumbar M47.816 Active confirmed 074826530 Problem Osteopenia M85.80 Active confirmed 691681848 Problem Allergic rhinitis, unspecified J30.9 Active confir med 97161950 Problem Impingement syndrome of right shoulder M75.41 A ctive confirmed 54317964288456659 Problem Impingement syndrome of left shoulder M75.42 Ac tive confirmed 011395559896092 Problem Diabetes mellitus type 2 with complications E11.8 Active confirmed 047421422 Problem DONG (obstructive sleep apnea) G47.33 Active confirm ed 53570158 Problem Recurrent sinusitis J32.9 Active confirmed 312700149 Problem B12 deficiency E53.8 Active confirmed 34848 4004 Problem Osteoarthritis of spine with radiculopathy, lumbar region M47.26 Active confirmed 021498570 Problem Primary osteoarthritis of both knees M17.0 Act luz confirmed 706446485 Problem Nephrolithiasis N20.0 Active confirmed 9557 0007 Problem 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 Active confirmed 394886715 Problem Constipation, chronic K59.09 Active confirmed 059745542 Problem Bilateral carpal tunnel syndrome G56.03 Active conf irmed 70674862 Problem Mitral valve disease I05.9 Active confirmed 49238679 Problem Cervical spondylosis M47.812 Active confirmed 739458941 Problem IT band syndrome, right M76.31 Active confirmed 753950570 Problem Paroxysmal atrial fibrillation I48.0 Active confir med 606513690 Problem Iron deficiency anemia, unspecified iron deficiency an emia type D50.9 Active confirmed 42566021 Problem Peripheral neuropathy G62.9 Active confirmed 687536379 Problem Obstructive uropathy N13.9 Active confirmed 4790275 Problem Colon cancer screening Z12.11 Active confirmed 275450170 ALLERGIES No Known Allergies ENCOUNTERS from 1965 to 2021-06-21 Encounter Location Date Provider Diagnosis [place] [address] [facility] [phone] [place] [address] May, Chaz Joseph Folliculitis L73.9 ; Bilater [...] Education Language: Question Answer Notes Languages spoken: Malay Latter-Day: Question Answer Notes Latter-Day 06 Voodoo Sexual Hx: Question Answer Notes Had sex [...] FOR REFERRAL No Information VITAL SIGNS Weight 170.0 lbs May, Height [...] every other day f or day(s) Active Polyethylene Glycol - 17 gm [...] Twice a day Active OneTouch Delica Plus [id number] - USE DIRECTED DAILY Active Lancets - [...] vaginal, second c section 1981 Hospitalization History [facility] 2002 Hospitalization History nicholas-orbital cellulitis 08/03/13 Hospitalization [...] qAM and CANI PT 07/09/20 MRI brain May, Osteoarthritis, hand (ICD-10 - M19.049) Stable [...] risk c aspirin given s/p GB and [id number]-VVPq score 2; changed to Xarelto 20 03/28/17 Lemuel establish visit-started digoxin 0.25 QD and aspirin [...] mild R hydro s stone 12/2018 - cystoscopy-[facility] Urology 09/2018 passed first stone of life; [...] decreased 10 to 8 given intolerance) 03/24/[address] [facility] [address] 30% compliance given xerostomia c [...] 57/85/62 12/2018 45/61/66, 66, <0.3 on atorva 08/2018 112/47/100, 53, <0.3; therefore, + atorva 11/2017 82/52/118, 63, <0.3 08/2015 91/40/108 s [...] Once a day for 90 da y(s) Treatment Notes Assessment Notes Clinical Notes Recurrent sinusitis 06/2018 5D recurrent B max sx; therefore, Augmentin 10D c FP 2 qAM Primary osteoarthritis of both knees Con tinue diclo 10 gtts QID prnContingency: PT c injection B12 deficiency hgb as per per 86 1732 on 1000; [place], [place] [address] 626 on 380 on 500 po QD; therefore, increased to 5329/2016 6024/2016 RBC folate 667 Allergic rhinitis, unspecified Stable on nito 10 QD c FP 2 qAM prn DONG (obstructive sleep apnea) Encouraged compliance c CPAP 8 c 2L O2 bleed via FFM (02/2019 decreased 10 to 8 given intolerance)03/24/18 [facility] [address] 30% compliance given xerostomia c NM05/22/[address] Ambrosio given DS, PHTN, new onset AF-referred by Hdez Impingement syndrome of right shoulder S table on home PT, follows c NCOG5/2017 B shoulder MRI c moderate-severe SS tendonopathy-worsened [...] c mild R hydro s stone12/2018 - cystoscopy-[facility] Rudtwfc71/2018 passed first stone of life; Uro + [...] 6.8; therefore, + metformin 500 AC dinner05/2019 HUOG/creatinine 23 Osteopenia recheck 06/2021 BMD2018 -1.2/-1.2/-1 c -15/-17/-3% change; therefore, maximize Ca/vit BMD 0/0.2/-0.7 c -4.5/-6.4/-5.6% chnage c/w 01/2010, therefore CCR Folliculitis 06/19/21 3w BUE folli culitis which continues to spread bc px itches and is using clob cr on; ergo, mup cr BID and cover and don't scratch DJD (degenerative joint disease), lumbar Stable on home PT and cyclo 5 TID prn qefwlv42/2018 improved c PT CANI03/2015 Mobic 15 held by patient given no benefit07/18/14 RODRÍGUEZ scheduled in [facility] Bilateral carpal tunnel syndrome 06/19/21 + B CTS splints given ~3W sensory flare Vitamin D deficiency 01/2020 44, 8.9, 122 05/2019 50, 9.2, 802 57, 8.9, 735 18, 9.0, 61; therefore, increased to 5K c Ca 600 BID Cervical spondylosis c cervicogenic MARY c C: PT c nor 25-50 qAM, MRI/PETER (only takes cyclo 5 QHS given too sedating)06/19/21 + nor 25 qAM and CANI PT07/09/20 MRI brain S/P gastric bypass No dumping symptoms but [...] H pylori IgG c levo/amox/BID PPI x 2W10/27, 12/21, 02/05/21 received Fe sucorse 250-total 75001/2020 [...] risk c aspirin given s/p GB and SNU2MM0-LDEn score 2; changed to Xarelto Hdez establish [...] 53, <0.3; therefore, + atorva 82/52/118, 63, <0.310/2014 91/40/108 s statin02/28/21 3.2, 1.01/2020 2.2, 0. [...] PT Treatment Notes Test Name Order Date [facility] Mateo Screening Bilateral (Ultrasound if Indicated ) [...] [id number] INSULIN LEVEL [id number] NT-PRO BNP [id number] Next Appt Details 3-4W Juan Antonio recheck MARY/CTS and 4M, BW 1W p rior Reason: Provider Name:Ondina Gamez, 07-17 09:30:00 AM, [address] [place] [address] , [place], [address], Provider Name:Chaz Ruiz, 2021-10-25 1 1:45:00 AM, [address] [place] [address], , [place], [address], Insurance Providers Payer Name Payer Address Payer Phone Insured Name Patient Relati onship to Insured Coverage Start Date Coverage End Date BCBS OF [facility] [phone] [facility] [id number] [address]
--- OUTSIDE RECORDS SUMMARY | 2021-09-05 11:18 | CCD ---
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 Active confirmed 85590182 Problem BPPV (benign paroxysmal positional vertigo) H81.10 Active confirmed 630440938 Problem Vitamin D deficiency E55.9 Active confirmed 35596537 Problem Breast cancer screening Z12.39 Active confirmed 031657408 Problem Tubulovillous adenoma of colon D12.6 Active confir med 65576966 Problem Eczema of both hands L30.9 Active confirmed 627080857 Problem 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 Act luz confirmed [id number] Problem Mixed hyperlipidemia E78.2 Active confirmed 567977721 Problem Primary osteoarthritis, right wrist M19.031 Acti ve confirmed 667220140094887 Problem DJD (degenerative joint disease), lumbar M47.816 Active confirmed 430916385 Problem Osteopenia M85.80 Active confirmed 652227489 Problem Allergic rhinitis, unspecified J30.9 Active confir med 31511357 Problem Impingement syndrome of right shoulder M75.41 A ctive confirmed [id number] Problem Impingement syndrome of left shoulder M75.42 Ac tive confirmed 695040901158831 Problem Diabetes mellitus type 2 with complications E11.8 Active confirmed 277213293 Problem DONG (obstructive sleep apnea) G47.33 Active confirm ed 24091282 Problem Recurrent sinusitis J32.9 Active confirmed 007685801 Problem B12 deficiency E53.8 Active confirmed 00254 4004 Problem Osteoarthritis of spine with radiculopathy, lumbar region M47.26 Active confirmed 154318407 Problem Primary osteoarthritis of both knees M17.0 Act luz confirmed 450440302 Problem Nephrolithiasis N20.0 Active confirmed 9557 0007 Problem 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 Active confirmed 425382438 Problem Constipation, chronic K59.09 Active confirmed 867298632 Problem Bilateral carpal tunnel syndrome G56.03 Active conf irmed 31998924 Problem Mitral valve disease I05.9 Active confirmed 41675211 Problem Cervical spondylosis M47.812 Active confirmed 172282908 Problem IT band syndrome, right M76.31 Active confirmed 854454425 Problem Paroxysmal atrial fibrillation I48.0 Active confir med 133789024 Problem Iron deficiency anemia, unspecified iron deficiency an emia type D50.9 Active confirmed 41678724 Problem Peripheral neuropathy G62.9 Active confirmed 394117446 Problem Obstructive uropathy N13.9 Active confirmed 9147569 Problem Colon cancer screening Z12.11 Active confirmed 382357950 ALLERGIES No Known Allergies ENCOUNTERS from 1965 to 2021-07-03 Encounter Location Date Provider Diagnosis [facility] [address] [facility] [phone] [place] [address] Jun, Chaz Ruiz IMMUNIZATIONS Vaccine Route Administration [...] Education Language: Question Answer Notes Languages spoken: Panamanian Orthodox: Question Answer Notes Orthodox 06 Lutheran Sexual Hx: Question Answer Notes Had sex [...] for 30 Days Active OneTouch Delica Plus [id number] - USE DIRECTED DAILY Active Atorvastatin Calcium [...] Information RESULTS No Results REASON FOR VISIT PT MEDICAL (GENERAL) HISTORY Type Description Date Medical [...] vaginal, second c section 1981 Hospitalization History [facility] 2002 Hospitalization History nicholas-orbital cellulitis 08/03/13 [...] Details Provider Name:Ondina Gamez, 07-10 09:30:00 AM, [address] [place] [address] , [place], [address], Provider Name:Chaz Ruiz, 2021-10-25 1 1:45:00 AM, [address] [place] [address] , [place], [address], Insurance Providers Payer Name Payer Address Payer Phone Insured Name Patient Relati onship to Insured Coverage Start Date Coverage End Date [facility] [id number] [place] [id number] [place]
--- OUTSIDE RECORDS SUMMARY | 2021-09-05 11:19 | CCD ---
Author Author [facility] Organization [facility] Address Unknown Phone Unavailable Support Name Relationship Address Phone [employer] Next Of Kin [address] [place] [address] [facility] [place] [address] [facility] Next Of Kin [address] [place] [address] [facility] Next Of Kin [address] [place] [address] [place] [address] [facility] Next Of Kin [address] [place] [address] [facility] [place] [address] [facility] Next Of [address] [place] [address] [facility]* Next Of Kin [address] [place] [address] [place] [address] [facility]* Next Of Kin [address] [place] [address] [facility] Next Of Kin [address] [place] [address] [facility]* Next Of Kin [address] [place] [address] [facility] Next Of Kin [address] [place] [address] [facility] Next Of Kin [address] [place] [address] EVANGELINA SRINIVASAN Next Of Kin [address] [place] [address] Evangelina Magdaleno ECON [address] [place] [address] RICHIE VALENTINE ECON [address] [address] [phone] EVANGELINA SRINIVASAN ECON [address] [place] [address] Care Team Providers Care Commercial Escrow Officer Name Role Phone Raulito, L Sera PA Unavailable Unavailable Raulito, L Sera PA Unavailable Unavailable Raulito, L Sera PA Unavailable Unavailable Raulito, L Sera PA Unavailable Unavailable Raulito, L Sera PA Unavailable Unavailable Raulito, L Sera PA Unavailable Unavailable Raulito, L Sera PA Unavailable Unavailable Raulito, L Sera PA Unavailable Unavailable Raulito, L Sera PA Unavailable Unavailable Raulito, L Sera PA Unavailable Unavailable Raulito, L Sera PA Unavailable Unavailable Raulito, L Sera PA Unavailable Unavailable Raulito, L Sera PA Unavailable Unavailable Raulito, L Sera PA Unavailable Unavailable Raulito, L Sera PA Unavailable Unavailable Raulito, L Sera PA Unavailable Unavailable Raulito, L Sera PA Unavailable Unavailable Raulito, L Sera PA Unavailable Unavailable Raulito, L Sera PA Unavailable Unavailable Raulito, L Sera PA Unavailable Unavailable Raulito, L Sera PA Unavailable Unavailable Raulito, L Sera PA Unavailable Unavailable Raulito, L Sera PA Unavailable Unavailable Charlebois, A Terire RPA C Unavailable Unavailable Charlebois, A Terrie RPA C Unavailable Unavailable Charlebois, A Terrie RPA C Unavailable Unavailable Charlebois, A Terrie RPA C Unavailable Unavailable Charlebois, A Terrie RPA C Unavailable Unavailable Charlebois, A Terrie RPA C Unavailable Unavailable Charlebois, A Terrie RPA C Unavailable Unavailable Charlebois, A Terrie RPA C Unavailable Unavailable Charlebois, A Terrie RPA C Unavailable Unavailable Charlebois, A Terrie RPA C Unavailable Unavailable Charlebois, A Terrie RPA C Unavailable Unavailable Charlebois, A Terrie RPA C Unavailable Unavailable Charlebois, A Terrie RPA C Unavailable Unavailable Charlebois, A Terrie RPA C Unavailable Unavailable Charlebois, A Terrie RPA C Unavailable Unavailable Charlebois, A Terrie RPA C Unavailable Unavailable Charlebois, A Terrie RPA C Unavailable Unavailable Charlebois, A Terrie RPA C Unavailable Unavailable Charlebois, A Terrie RPA C Unavailable Unavailable Charlebois, A Terrie RPA C Unavailable Unavailable Charlebois, A Terrie RPA C Unavailable Unavailable Charlebois, A Terrie RPA C Unavailable Unavailable Charlebois, A Terrie RPA C Unavailable Unavailable Charlebois, A Terrie RPA C Unavailable Unavailable Charlebois, A Terrie RPA C Unavailable Unavailable Charlebois, A Terrie RPA C Unavailable Unavailable Charlebois, A Terrie RPA C Unavailable Unavailable Charlebois, A Terrie RPA C Unavailable Unavailable Charlebois, A Terrie RPA C Unavailable Unavailable Charlebois, A Terrie RPA C Unavailable Unavailable Charlebois, A Terrie RPA C Unavailable Unavailable Charlebois, A Terrie RPA C Unavailable Unavailable Wilbur Fields JR, MD Unavailable Unavailable Wilbur Fields JR, MD Unavailable Unavailable Wilbur Fields JR, MD Unavailable Unavailable Wilbur Fields JR, MD Unavailable Unavailable Wilbur Fields JR, MD Unavailable Unavailable Wilbur Fields JR, MD Unavailable Unavailable Wilbur Fields JR, MD Unavailable Unavailable Wilbur Fields JR, MD Unavailable Unavailable Wilbur Fields JR, MD Unavailable Unavailable Wilbur Fields JR, MD Unavailable Unavailable Wilbur Fields JR, MD Unavailable Unavailable Wilbur Fields JR, MD Unavailable Unavailable Wilbur Fields JR, MD Unavailable Unavailable Wilbur Fields JR, MD Unavailable Unavailable Wilbur Fields JR, MD Unavailable Unavailable Wilbur Fields JR, MD Unavailable Unavailable Wilbur Fields JR, MD Unavailable Unavailable Wilbur Fields JR, MD Unavailable Unavailable Wilbur Fields JR, MD Unavailable Unavailable Wilbur Fields JR, MD Unavailable Unavailable Wilbur Fields JR, MD Unavailable Unavailable Wilbur Fields JR, MD Unavailable Unavailable Wilbur Fields JR, MD Unavailable Unavailable Wilbur Fields JR, MD Unavailable Unavailable Wilbur Fields JR, MD Unavailable Unavailable Wilbur Fields JR, MD Unavailable Unavailable Wilbur Fields JR, MD Unavailable Unavailable Wilbur Fields JR, MD Unavailable Unavailable Wilbur Fields JR, MD Unavailable Unavailable Wilbur Fields JR, MD Unavailable Unavailable Wilbur Fields JR, MD Unavailable Unavailable Wilbur Fields JR, MD Unavailable Unavailable Wilbur Fields JR, MD Unavailable Unavailable Diamond JR, J Mauricio MD Unavailable Unavailable Diamond JR, J Mauricio MD Unavailable Unavailable Diamond JR, J Mauricio MD Unavailable Unavailable Diamond JR, J Mauricio MD Unavailable Unavailable Diamond JR, J Mauricio MD Unavailable Unavailable Diamond JR, J Mauricio MD Unavailable Unavailable Diamond JR, J Mauricio MD Unavailable Unavailable Diamond JR, J Mauricio MD Unavailable Unavailable Diamond JR, J Mauricio MD Unavailable Unavailable Diamond JR, J Mauricio MD Unavailable Unavailable Diamond JR, J Mauricio MD Unavailable Unavailable Diamond JR, J Mauricio MD Unavailable Unavailable Diamond JR, J Mauricio MD Unavailable Unavailable Diamond JR, J Mauricio MD Unavailable Unavailable Diamond JR, J Mauricio MD Unavailable Unavailable Diamond JR, J Mauricio MD Unavailable Unavailable Diamond JR, J Mauricio MD Unavailable Unavailable Diamond JR, J Mauricio MD Unavailable Unavailable Diamond JR, J Mauricio MD Unavailable Unavailable Diamond JR, J Mauricio MD Unavailable Unavailable Diamond JR, J Mauricio MD Unavailable Unavailable Re-disclosure Warning The records that you are about to access may contain information from federally-assisted alcohol or drug abuse programs. If such information is present, then the following federally mandated warning applies: This information has been disclosed to you from records protected by federal confidentiality rules (42 CFR part 2). The federal rules prohibit you from making any further disclosure of this information unless further disclosure is expressly permitted by the written consent of the person to whom it pertains or as otherwise permitted by 42 CFR part 2. A general authorization for the release of medical or other information is NOT sufficient for this purpose. The Federal rules restrict any use of the information to criminally investigate or prosecute any alcohol or drug abuse patient.The records that you are about to access may contain highly sensitive health information, the redisclosure of which is protected by Article 27-F of the [facility] Public Health law. If you continue you may have access to information: Regarding HIV / AIDS; Provided by facilities licensed or operated by the [facility] Office of Mental Health; or Provided by the [facility] Office for People With Developmental Disabilities. If such information is present, then the following [facility] mandated warning applies: This information has been disclosed to you from confidential records which are protected by state law. State law prohibits you from making any further disclosure of this information without the specific written consent of the person to whom it pertains, or as otherwise permitted by law. Any unauthorized further disclosure in violation of state law may result in a fine or longterm sentence or both. A general authorization for the release of medical or other information is NOT sufficient authorization for further disc losure. Family History Family Member Name Family Member Gender Family Member Status Date o f Status Description Data Source(s) Unknown Condition [facility] Unknown Condition [facility] Unknown Condition [facility] Unknown Condition [facility] Encounters Encounter Providers Location Date Indications Data Source(s ) [place] [address] [facility] [address] 08/10/2021 12:00:00 AM EDT eCW1 ([facility]) Outpatient [address] [facility] [place] [address] 07/10/2021 12:00:00 AM EDT eCW1 ([facility]) Unknown [address] [facility] [place] [address] 06/27/2021 12:00:00 AM EDT eCW1 ([facility]) Unknown [address] [facility] [place] [address] 06/27/2021 12:00:00 AM EDT eCW1 ([facility]) Unknown [address] [facility] [place] [address] 06/27/2021 12:00:00 AM EDT eCW1 ([facility]) Outpatient [address] [facility] [place] [address] 06/19/2021 12:00:00 AM EDT eCW1 ([facility]) Unknown [address] [facility] [place] [address] 06/19/2021 12:00:00 AM EDT eCW1 ([facility]) Unknown [address] [facility] [place] [address] 06/19/2021 12:00:00 AM EDT eCW1 ([facility]) Unknown [address] [facility] [place] [address] 06/19/2021 12:00:00 AM EDT [facility]CW1 [facility] [place] [address] [facility] [address] 06/19/2021 12:00:00 AM EDT eCW1 ([facility]) Unknown [address] [facility] [address] 05/24/2021 12:00:00 AM EDT eCW1 ([facility]) Out[place] [address] [facility] [address] 05/24/2021 12:00:00 AM EDT eCW1 ([facility]) [place] [address] [facility] [address] 03/19/2021 12:00:00 AM EDT eCW1 ([facility]) Outpatient Attender: Terrie Jade/Lita/Daniel guevara/John 03/13/2021 02:00:00 PM EDT MEDENT ([facility] Emiliano cartagena, ) Unknown [address] [facility] [address] 02/13/2021 12:00:00 AM EDT eCW1 ([facility]) Unknown [address] [facility] [address] 02/13/2021 12:00:00 AM EDT eCW1 ([facility]) Unknown [address] [facility] [address] 02/10/2021 12:00:00 AM EDT eCW1 ([facility]) Unknown [address] [facility] [address] 01/29/2021 12:00:00 AM EST eCW1 ([facility] [place]) [place] [address] [facility] [address] 01/17/2021 12:00:00 AM EST eCW1 ([facility]) Unknown [address] [facility] [address] 01/16/2021 12:00:00 AM EST eCW1 ([facility]) [place] [address] [facility] [address] 01/15/2021 12:00:00 AM EST eCW1 ([facility]) Unknown [address] [facility] [address] 01/15/2021 12:00:00 AM EST eCW1 ([facility]) Outpatient Attender: Terrie Jade/Lita/Daniel guevara/John 01/08/2021 10:15:00 AM EST MEDENT ([facility] P osiel, EDUIN) Unknown [address] [facility] [address] 01/08/2021 12:00:00 AM EST eCW1 ([facility]) Unknown [address] [facility] [address] 12/20/2020 12:00:00 AM EST eCW1 ([facility]) Unknown [address] [facility] [address] 12/20/2020 12:00:00 AM EST eCW1 ([facility]) Outpatient [address] [facility] [address] 12/19/2020 12:00:00 AM EST eCW1 ([facility]) Unknown [address] [facility] [address] 12/19/2020 12:00:00 AM EST eCW1 ([facility]) Unknown [address] [facility] [address] 12/15/2020 12:00:00 AM EST [facility]CW1 [facility] [place] [address] [facility] [address] 12/13/2020 12:00:00 AM EST eCW1 ([facility]) Unknown [address] [facility] [address] 12/13/2020 12:00:00 AM EST eCW1 ([facility]) Unknown [address] [facility] [address] 12/13/2020 12:00:00 AM EST eCW1 ([facility]) Out[place] [address] [facility] [address] 12/04/2020 12:00:00 AM EST eCW1 ([facility]) Unknown [address] [facility] [address] 12/04/2020 12:00:00 AM EST eCW1 ([facility]) Unknown [address] [facility] [address] 12/04/2020 12:00:00 AM EST eCW1 ([facility]) Unknown [address] [facility] [address] 11/30/2020 12:00:00 AM EST eCW1 ([facility]) Unknown [address] [facility] [address] 10/05/2020 12:00:00 AM EST eCW1 ([facility]) [place] [address] [facility] [address] 09/19/2020 12:00:00 AM EDT eCW1 ([facility]) Unknown [address] [facility] [address] 09/05/2020 12:00:00 AM EDT eCW1 ([facility]) Outpatient Attender: Mauricio Jade/Lita/Jayant/Rein dl 07/19/2020 09:50:00 AM EDT MEDENT ([facility] [address] [facility] [address] 07/18/2020 12:00:00 AM EDT eCW1 ([facility]) Outpatient Attender: Sera WALDROP Main Office 07/12/2020 09:45:0 0 AM EDT MEDENT ([facility]) Immunizations Vaccine Date Status Description Data Source(s) COVID-19 dose #2 given elsewhere Unspecified 02/22/2021 05:5 6:00 PM EDT completed eCW1 ([facility]) COVID-19 dose #2 given elsewhere Unspecified 02/22/2021 05:5 6:00 PM EDT completed eCW1 ([facility]) COVID-19 dose #2 given elsewhere Unspecified 02/22/2021 05:5 6:00 PM EDT completed eCW1 ([facility]) COVID-19 dose #2 given elsewhere Unspecified 02/22/2021 05:5 6:00 PM EDT completed eCW1 ([facility]) COVID-19 dose #2 given elsewhere Unspecified 02/22/2021 05:5 6:00 PM EDT completed eCW1 ([facility]) COVID-19 dose #2 given elsewhere Unspecified 02/22/2021 05:5 6:00 PM EDT completed eCW1 ([facility]) COVID-19 dose #2 given elsewhere Unspecified 02/22/2021 05:5 6:00 PM EDT completed eCW1 ([facility]) COVID-19 dose #2 given elsewhere Unspecified 02/22/2021 05:5 6:00 PM EDT completed eCW1 ([facility]) COVID-19 dose #2 given elsewhere Unspecified 02/22/2021 05:5 6:00 PM EDT completed eCW1 ([facility]) COVID-19 dose #2 given elsewhere Unspecified 02/22/2021 05:5 6:00 PM EDT completed eCW1 ([facility]) COVID-19 dose #2 given elsewhere Unspecified 02/22/2021 05:5 6:00 PM EDT completed eCW1 ([facility]) COVID-19 dose #2 given elsewhere Unspecified 02/22/2021 05:5 6:00 PM EDT completed eCW1 ([facility]) COVID-19 dose #2 given elsewhere Unspecified 02/22/2021 05:5 6:00 PM EDT completed eCW1 ([facility]) COVID-19 dose #2 given elsewhere Unspecified 02/22/2021 05:5 6:00 PM EDT completed eCW1 ([facility]) COVID-19 VACCINE Sawyer 02/22/2021 12:00:00 AM EDT completed [facility] Vaccine Series Complete: YESThis Data wa s Submitted to [facility] [employer]. influenza, recombinant, quadrIvalent,injectable, prese rvative free 09/19/2020 05:39:00 PM EDT completed eCW1 ([facility]) influenza, recombinant, quadrIvalent,injectable, prese rvative free 09/19/2020 05:39:00 PM EDT completed eCW1 ([facility]) influenza, recombinant, quadrIvalent,injectable, prese rvative free 09/19/2020 05:39:00 PM EDT completed eCW1 ([facility]) influenza, recombinant, quadrIvalent,injectable, prese rvative free 09/19/2020 05:39:00 PM EDT completed eCW1 ([facility]) influenza, recombinant, quadrIvalent,injectable, prese rvative free 09/19/2020 05:39:00 PM EDT completed eCW1 ([facility]) influenza, recombinant, quadrIvalent,injectable, prese rvative free 09/19/2020 05:39:00 PM EDT completed eCW1 ([facility]) influenza, recombinant, quadrIvalent,injectable, prese rvative free 09/19/2020 05:39:00 PM EDT completed eCW1 ([facility]) influenza, recombinant, quadrIvalent,injectable, prese rvative free 09/19/2020 05:39:00 PM EDT completed eCW1 ([facility]) influenza, recombinant, quadrIvalent,injectable, prese rvative free 09/19/2020 05:39:00 PM EDT completed eCW1 ([facility]) influenza, recombinant, quadrIvalent,injectable, prese rvative free 09/19/2020 05:39:00 PM EDT completed eCW1 ([facility]) influenza, recombinant, quadrIvalent,injectable, prese rvative free 09/19/2020 05:39:00 PM EDT completed eCW1 ([facility]) influenza, recombinant, quadrIvalent,injectable, prese rvative free 09/19/2020 05:39:00 PM EDT completed eCW1 ([facility]) influenza, recombinant, quadrIvalent,injectable, prese rvative free 09/19/2020 05:39:00 PM EDT completed eCW1 ([facility]) influenza, recombinant, quadrIvalent,injectable, prese rvative free 09/19/2020 05:39:00 PM EDT completed eCW1 ([facility]) influenza, recombinant, quadrIvalent,injectable, prese rvative free 09/19/2020 05:39:00 PM EDT completed eCW1 ([facility]) influenza, recombinant, quadrIvalent,injectable, prese rvative free 09/19/2020 05:39:00 PM EDT completed eCW1 ([facility]) influenza, recombinant, quadrIvalent,injectable, prese rvative free 09/19/2020 05:39:00 PM EDT completed eCW1 ([facility]) influenza, recombinant, quadrIvalent,injectable, prese rvative free 09/19/2020 05:39:00 PM EDT completed eCW1 ([facility]) influenza, recombinant, quadrIvalent,injectable, prese rvative free 09/19/2020 05:39:00 PM EDT completed eCW1 ([facility]) influenza, recombinant, quadrIvalent,injectable, prese rvative free 09/19/2020 05:39:00 PM EDT completed eCW1 ([facility]) influenza, recombinant, quadrIvalent,injectable, prese rvative free 09/19/2020 05:39:00 PM EDT completed eCW1 ([facility]) influenza, recombinant, quadrIvalent,injectable, prese rvative free 09/19/2020 05:39:00 PM EDT completed eCW1 ([facility]) influenza, recombinant, quadrIvalent,injectable, prese rvative free 09/19/2020 05:39:00 PM EDT completed eCW1 ([facility]) influenza, recombinant, quadrIvalent,injectable, prese rvative free 09/19/2020 05:39:00 PM EDT completed eCW1 ([facility]) influenza, recombinant, quadrIvalent,injectable, prese rvative free 09/19/2020 05:39:00 PM EDT completed eCW1 ([facility]) influenza, recombinant, quadrIvalent,injectable, prese rvative free 09/19/2020 05:39:00 PM EDT completed eCW1 ([facility]) influenza, recombinant, quadrIvalent,injectable, prese rvative free 09/19/2020 05:39:00 PM EDT completed eCW1 ([facility]) influenza, recombinant, quadrIvalent,injectable, prese rvative free 09/19/2020 05:39:00 PM EDT completed eCW1 ([facility]) influenza, recombinant, quadrIvalent,injectable, prese rvative free 09/19/2020 05:39:00 PM EDT completed eCW1 ([facility]) influenza, recombinant, quadrIvalent,injectable, prese rvative free 09/19/2020 05:39:00 PM EDT completed eCW1 ([facility]) influenza, recombinant, quadrIvalent,injectable, prese rvative free 09/19/2020 05:39:00 PM EDT completed eCW1 ([facility]) influenza, recombinant, quadrIvalent,injectable, prese rvative free 09/19/2020 05:39:00 PM EDT completed eCW1 ([facility]) influenza, recombinant, quadrIvalent,injectable, prese rvative free 09/19/2020 05:39:00 PM EDT completed eCW1 ([facility]) influenza, recombinant, quadrIvalent,injectable, prese rvative free 09/19/2020 05:39:00 PM EDT completed eCW1 ([facility]) influenza, recombinant, quadrIvalent,injectable, prese rvative free 09/19/2020 05:39:00 PM EDT completed eCW1 ([facility]) influenza, recombinant, quadrIvalent,injectable, prese rvative free 09/19/2020 05:39:00 PM EDT completed eCW1 ([facility]) influenza, recombinant, quadrIvalent,injectable, prese rvative free 09/19/2020 05:39:00 PM EDT completed eCW1 ([facility]) influenza, recombinant, quadrIvalent,injectable, prese rvative free 09/19/2020 05:39:00 PM EDT completed eCW1 ([facility]) Medications Medication Brand Name Start Date Product Form Dose Route Admi nistrative Instructions Pharmacy Instructions Status Indications Reaction Description Data Source(s) Carpal Tunnel Wrist Stabilizer - Carpal Tunnel Wrist Stabili zer - 06/19/2021 12:00:00 AM EDT active Carpal T unnel Wrist Stabilizer - eCW1 ([facility]) Polyethylene Glycol - Polyethylene Glycol - 06/19/2021 12:00:00 AM EDT active Polyethylene Glycol - eCW1 ( [facility]) Polyethylene Glycol - Polyethylene Glycol - 06/19/2021 12:00:00 AM EDT active Polyethylene Glycol - eCW1 ( [facility]) Carpal Tunnel Wrist Stabilizer - Carpal Tunnel Wrist Stabili zer - 06/19/2021 12:00:00 AM EDT active Carpal T unnel Wrist Stabilizer - eCW1 ([facility]) Carpal Tunnel Wrist Stabilizer - Carpal Tunnel Wrist Stabili zer - 06/19/2021 12:00:00 AM EDT active Carpal T unnel Wrist Stabilizer - eCW1 ([facility]) Carpal Tunnel Wrist Stabilizer - Carpal Tunnel Wrist Stabili zer - 06/19/2021 12:00:00 AM EDT active Carpal T unnel Wrist Stabilizer - eCW1 ([facility]) Mupirocin 20 MG/ML Topical Cream Mupirocin Calcium 2 % Mupir ocin Calcium 2 % 06/19/2021 12:00:00 AM EDT 1.0 {application} act luz Mupirocin Calcium 2 % eCW1 ([facility]) Carpal Tunnel Wrist Stabilizer - Carpal Tunnel Wrist Stabili zer - 06/19/2021 12:00:00 AM EDT active Carpal T unnel Wrist Stabilizer - eCW1 ([facility]) Polyethylene Glycol - Polyethylene Glycol - 06/19/2021 12:00:00 AM EDT active Polyethylene Glycol - eCW1 ( [facility]) Mupirocin 20 MG/ML Topical Cream Mupirocin Calcium 2 % Mupir ocin Calcium 2 % 06/19/2021 12:00:00 AM EDT 1.0 {application} act luz Mupirocin Calcium 2 % eCW1 ([facility]) Mupirocin 20 MG/ML Topical Cream Mupirocin Calcium 2 % Mupir ocin Calcium 2 % 06/19/2021 12:00:00 AM EDT 1.0 {application} act luz Mupirocin Calcium 2 % eCW1 ([facility]) Nortriptyline 25 MG Oral Capsule Nortriptyline HCl 25 MG Nortriptyline HCl 25 MG 06/19/2021 12:00:00 AM EDT 1.0 {capsule} acti ve Nortriptyline HCl 25 MG eCW1 ([facility]) Mupirocin 20 MG/ML Topical Cream Mupirocin Calcium 2 % Mupir ocin Calcium 2 % 06/19/2021 12:00:00 AM EDT 1.0 {application} act luz Mupirocin Calcium 2 % eCW1 ([facility]) Mupirocin 20 MG/ML Topical Cream Mupirocin Calcium 2 % Mupir ocin Calcium 2 % 06/19/2021 12:00:00 AM EDT 1.0 {application} act luz Mupirocin Calcium 2 % eCW1 ([facility]) Carpal Tunnel Wrist Stabilizer - Carpal Tunnel Wrist Stabili zer - 06/19/2021 12:00:00 AM EDT active Carpal T unnel Wrist Stabilizer - eCW1 ([facility]) Polyethylene Glycol - Polyethylene Glycol - 06/19/2021 12:00:00 AM EDT active Polyethylene Glycol - eCW1 ( [facility]) Nortriptyline 25 MG Oral Capsule Nortriptyline HCl 25 MG Nortriptyline HCl 25 MG 06/19/2021 12:00:00 AM EDT 1.0 {capsule} acti ve Nortriptyline HCl 25 MG eCW1 ([facility]) Polyethylene Glycol - Polyethylene Glycol - 06/19/2021 12:00:00 AM EDT active Polyethylene Glycol - eCW1 ( [facility]) Mupirocin 20 MG/ML Topical Cream Mupirocin Calcium 2 % Mupir ocin Calcium 2 % 06/19/2021 12:00:00 AM EDT 1.0 {application} act luz Mupirocin Calcium 2 % eCW1 ([facility]) Carpal Tunnel Wrist Stabilizer - Carpal Tunnel Wrist Stabili zer - 06/19/2021 12:00:00 AM EDT active Carpal T unnel Wrist Stabilizer - eCW1 ([facility]) Mupirocin 20 MG/ML Topical Cream Mupirocin Calcium 2 % Mupir ocin Calcium 2 % 06/19/2021 12:00:00 AM EDT 1.0 {application} act luz Mupirocin Calcium 2 % eCW1 ([facility]) Carpal Tunnel Wrist Stabilizer - Carpal Tunnel Wrist Stabili zer - 06/19/2021 12:00:00 AM EDT active Carpal T unnel Wrist Stabilizer - eCW1 ([facility]) Mupirocin 20 MG/ML Topical Cream Mupirocin Calcium 2 % Mupir ocin Calcium 2 % 06/19/2021 12:00:00 AM EDT 1.0 {application} act luz Mupirocin Calcium 2 % eCW1 ([facility]) Nortriptyline 25 MG Oral Capsule Nortriptyline HCl 25 MG Nortriptyline HCl 25 MG 06/19/2021 12:00:00 AM EDT 1.0 {capsule} acti ve Nortriptyline HCl 25 MG eCW1 ([facility]) Polyethylene Glycol - Polyethylene Glycol - 06/19/2021 12:00:00 AM EDT active Polyethylene Glycol - eCW1 ( [facility]) Polyethylene Glycol - Polyethylene Glycol - 06/19/2021 12:00:00 AM EDT active Polyethylene Glycol - eCW1 ( [facility]) Nortriptyline 50 MG Oral Capsule Nortriptyline HCl 50 MG Nortriptyline HCl 50 MG 06/19/2021 12:00:00 AM EDT 1.0 {capsule} acti ve Nortriptyline HCl 50 MG eCW1 ([facility]) Nortriptyline 25 MG Oral Capsule Nortriptyline HCl 25 MG Nortriptyline HCl 25 MG 06/19/2021 12:00:00 AM EDT 1.0 {capsule} acti ve Nortriptyline HCl 25 MG eCW1 ([facility]) Carpal Tunnel Wrist Stabilizer - Carpal Tunnel Wrist Stabili zer - 06/19/2021 12:00:00 AM EDT active Carpal T unnel Wrist Stabilizer - eCW1 ([facility]) Mupirocin 20 MG/ML Topical Cream Mupirocin Calcium 2 % Mupir ocin Calcium 2 % 06/19/2021 12:00:00 AM EDT 1.0 {application} act luz Mupirocin Calcium 2 % eCW1 ([facility]) Polyethylene Glycol - Polyethylene Glycol - 06/19/2021 12:00:00 AM EDT active Polyethylene Glycol - eCW1 ( [facility]) Nortriptyline 25 MG Oral Capsule Nortriptyline HCl 25 MG Nortriptyline HCl 25 MG 06/19/2021 12:00:00 AM EDT 1.0 {capsule} acti ve Nortriptyline HCl 25 MG eCW1 ([facility]) Nortriptyline 50 MG Oral Capsule Nortriptyline HCl 50 MG Nortriptyline HCl 50 MG 06/19/2021 12:00:00 AM EDT 1.0 {capsule} acti ve Nortriptyline HCl 50 MG eCW1 ([facility]) Nortriptyline 25 MG Oral Capsule Nortriptyline HCl 25 MG Nortriptyline HCl 25 MG 06/19/2021 12:00:00 AM EDT 1.0 {capsule} acti ve Nortriptyline HCl 25 MG eCW1 ([facility]) Polyethylene Glycol - Polyethylene Glycol - 06/19/2021 12:00:00 AM EDT active Polyethylene Glycol - eCW1 ( [facility]) Carpal Tunnel Wrist Stabilizer - Carpal Tunnel Wrist Stabili zer - 06/19/2021 12:00:00 AM EDT active Carpal T unnel Wrist Stabilizer - eCW1 ([facility]) Polyethylene Glycol - Polyethylene Glycol - 06/19/2021 12:00:00 AM EDT active Polyethylene Glycol - eCW1 ( [facility]) Mupirocin 20 MG/ML Topical Cream Mupirocin Calcium 2 % Mupir ocin Calcium 2 % 06/19/2021 12:00:00 AM EDT 1.0 {application} act luz Mupirocin Calcium 2 % eCW1 ([facility]) Polyethylene Glycol - Polyethylene Glycol - 06/19/2021 12:00:00 AM EDT active Polyethylene Glycol - eCW1 ( [facility]) Nortriptyline 25 MG Oral Capsule Nortriptyline HCl 25 MG Nortriptyline HCl 25 MG 06/19/2021 12:00:00 AM EDT 1.0 {capsule} acti ve Nortriptyline HCl 25 MG eCW1 ([facility]) Nortriptyline 25 MG Oral Capsule Nortriptyline HCl 25 MG Nortriptyline HCl 25 MG 06/19/2021 12:00:00 AM EDT 1.0 {capsule} acti ve Nortriptyline HCl 25 MG eCW1 ([facility]) Mupirocin 20 MG/ML Topical Cream Mupirocin Calcium 2 % Mupir ocin Calcium 2 % 06/19/2021 12:00:00 AM EDT 1.0 {application} act luz Mupirocin Calcium 2 % eCW1 ([facility]) Nortriptyline 25 MG Oral Capsule Nortriptyline HCl 25 MG Nortriptyline HCl 25 MG 06/19/2021 12:00:00 AM EDT 1.0 {capsule} acti ve Nortriptyline HCl 25 MG eCW1 ([facility]) Carpal Tunnel Wrist Stabilizer - Carpal Tunnel Wrist Stabili zer - 06/19/2021 12:00:00 AM EDT active Carpal T unnel Wrist Stabilizer - eCW1 ([facility]) Meclizine Hydrochloride 25 MG Oral Tablet Meclizine HC l 25 MG Meclizine HCl 25 MG 01/16/2021 12:00:00 AM EST 1.0 {tablet_as_needed} active Meclizine HCl 25 MG eCW1 ([facility]) Meclizine Hydrochloride 25 MG Oral Tablet Meclizine HC l 25 MG Meclizine HCl 25 MG 01/16/2021 12:00:00 AM EST 1.0 {tablet_as_needed} active Meclizine HCl 25 MG eCW1 ([facility]) Meclizine Hydrochloride 25 MG Oral Tablet Meclizine HC l 25 MG Meclizine HCl 25 MG 01/16/2021 12:00:00 AM EST 1.0 {tablet_as_needed} active Meclizine HCl 25 MG eCW1 ([facility]) Meclizine Hydrochloride 25 MG Oral Tablet Meclizine HC l 25 MG Meclizine HCl 25 MG 01/16/2021 12:00:00 AM EST 1.0 {tablet_as_needed} active Meclizine HCl 25 MG eCW1 ([facility]) Meclizine Hydrochloride 25 MG Oral Tablet Meclizine HC l 25 MG Meclizine HCl 25 MG 01/16/2021 12:00:00 AM EST 1.0 {tablet_as_needed} active Meclizine HCl 25 MG eCW1 ([facility]) Meclizine Hydrochloride 25 MG Oral Tablet Meclizine HC l 25 MG Meclizine HCl 25 MG 01/16/2021 12:00:00 AM EST 1.0 {tablet_as_needed} active Meclizine HCl 25 MG eCW1 ([facility]) Meclizine Hydrochloride 25 MG Oral Tablet Meclizine HC l 25 MG Meclizine HCl 25 MG 01/16/2021 12:00:00 AM EST 1.0 {tablet_as_needed} active Meclizine HCl 25 MG eCW1 ([facility]) Meclizine Hydrochloride 25 MG Oral Tablet Meclizine HC l 25 MG Meclizine HCl 25 MG 01/16/2021 12:00:00 AM EST 1.0 {tablet_as_needed} active Meclizine HCl 25 MG eCW1 ([facility]) tizanidine 4 MG Oral Tablet Tizanidine HCl 4 MG Tizanidine H Cl 4 MG 01/08/2021 12:00:00 AM EST 1.0 {tablet_as_needed} active Tizanidine HCl 4 MG eCW1 ([facility]) tizanidine 4 MG Oral Tablet Tizanidine HCl 4 MG Tizanidine H Cl 4 MG 01/08/2021 12:00:00 AM EST 1.0 {tablet_as_needed} active Tizanidine HCl 4 MG eCW1 ([facility]) tizanidine 4 MG Oral Tablet Tizanidine HCl 4 MG Tizanidine H Cl 4 MG 01/08/2021 12:00:00 AM EST 1.0 {tablet_as_needed} active Tizanidine HCl 4 MG eCW1 ([facility]) tizanidine 4 MG Oral Tablet Tizanidine HCl 4 MG Tizanidine H Cl 4 MG 01/08/2021 12:00:00 AM EST 1.0 {tablet_as_needed} active Tizanidine HCl 4 MG eCW1 ([facility]) tizanidine 4 MG Oral Tablet Tizanidine HCl 4 MG Tizanidine H Cl 4 MG 01/08/2021 12:00:00 AM EST 1.0 {tablet_as_needed} active Tizanidine HCl 4 MG eCW1 ([facility]) tizanidine 4 MG Oral Tablet Tizanidine HCl 4 MG Tizanidine H Cl 4 MG 01/08/2021 12:00:00 AM EST 1.0 {tablet_as_needed} active Tizanidine HCl 4 MG eCW1 ([facility]) tizanidine 4 MG Oral Tablet Tizanidine HCl 4 MG Tizanidine H Cl 4 MG 01/08/2021 12:00:00 AM EST 1.0 {tablet_as_needed} active Tizanidine HCl 4 MG eCW1 ([facility]) tizanidine 4 MG Oral Tablet Tizanidine HCl 4 MG Tizanidine H Cl 4 MG 01/08/2021 12:00:00 AM EST 1.0 {tablet_as_needed} active Tizanidine HCl 4 MG eCW1 ([facility]) POLYETHYLENE GLYCOL 3350 142 MG/ML Oral Solution [Miralax] M iralax 01/08/2021 12:00:00 AM EST completed MEDENT ([facility], ) Magnesium Hydroxide 80 MG/ML Oral Suspension Milk Of Magnesi a 01/08/2021 12:00:00 AM EST ORAL completed MEDENT ([facility], ) tizanidine 4 MG Oral Tablet Tizanidine HCl 4 MG Tizanidine H Cl 4 MG 01/08/2021 12:00:00 AM EST 1.0 {tablet_as_needed} active Tizanidine HCl 4 MG eCW1 ([facility]) tizanidine 4 MG Oral Tablet Tizanidine HCl 4 MG Tizanidine H Cl 4 MG 01/08/2021 12:00:00 AM EST 1.0 {tablet_as_needed} active Tizanidine HCl 4 MG eCW1 ([facility]) Amoxicillin 500 MG Oral Capsule Amoxicillin 500 MG 12/21/2020 12:00 :00 AM EST active Amoxicillin 500 MG eCW1 ([facility]) pantoprazole 40 MG Delayed Release Oral Tablet Pantopr azole Sodium 40 MG Pantoprazole Sodium 40 MG 12/21/2020 12:00:00 AM EST 1.0 {tablet} active Pantoprazole Sodium 40 MG eCW1 ( [facility]) pantoprazole 40 MG Delayed Release Oral Tablet Pantopr azole Sodium 40 MG Pantoprazole Sodium 40 MG 12/21/2020 12:00:00 AM EST 1.0 {tablet} active Pantoprazole Sodium 40 MG eCW1 ( [facility]) Amoxicillin 500 MG Oral Capsule Amoxicillin 500 MG 12/21/2020 12:00 :00 AM EST active Amoxicillin 500 MG eCW1 ([facility]) pantoprazole 40 MG Delayed Release Oral Tablet Pantopr azole Sodium 40 MG Pantoprazole Sodium 40 MG 12/21/2020 12:00:00 AM EST 1.0 {tablet} active Pantoprazole Sodium 40 MG eCW1 ( [facility]) Levofloxacin 250 MG Oral Tablet Levofloxacin 250 MG 12/21/2020 1 2:00:00 AM EST 1.0 {tablet} active Levofloxaci n 250 MG eCW1 ([facility]) Levofloxacin 250 MG Oral Tablet Levofloxacin 250 MG 12/21/2020 1 2:00:00 AM EST 1.0 {tablet} active Levofloxaci n 250 MG eCW1 ([facility]) pantoprazole 40 MG Delayed Release Oral Tablet Pantopr azole Sodium 40 MG Pantoprazole Sodium 40 MG 12/21/2020 12:00:00 AM EST 1.0 {tablet} active Pantoprazole Sodium 40 MG eCW1 ( [facility]) Amoxicillin 500 MG Oral Capsule Amoxicillin 500 MG 12/21/2020 12:00 :00 AM EST active Amoxicillin 500 MG eCW1 ([facility]) Levofloxacin 250 MG Oral Tablet Levofloxacin 250 MG 12/21/2020 1 2:00:00 AM EST 1.0 {tablet} active Levofloxaci n 250 MG eCW1 ([facility]) Amoxicillin 500 MG Oral Capsule Amoxicillin 500 MG 12/21/2020 12:00 :00 AM EST active Amoxicillin 500 MG eCW1 ([facility]) Levofloxacin 250 MG Oral Tablet Levofloxacin 250 MG 12/21/2020 1 2:00:00 AM EST 1.0 {tablet} active Levofloxaci n 250 MG eCW1 ([facility]) Augmentin 875-125 MG UNK 12/04/2020 12:00:00 AM EST 1.0 {tablet } active Augmentin 875-125 MG [facility] Augmentin 875-125 MG UNK 12/04/2020 12:00:00 AM EST 1.0 {tablet } active Augmentin 875-125 MG eCW1 [facility] Augmentin 875-125 MG UNK 12/04/2020 12:00:00 AM EST 1.0 {tablet } active Augmentin 875-125 MG eCW1 [facility] Augmentin 875-125 MG UNK 12/04/2020 12:00:00 AM EST 1.0 {tablet } active Augmentin 875-125 MG eCW1 [facility] Augmentin 875-125 MG UNK 12/04/2020 12:00:00 AM EST 1.0 {tablet } active Augmentin 875-125 MG eCW1 [facility] Sucralfate 1000 MG Oral Tablet Sucralfate 07/19/2020 12:00:00 AM EDT ORAL active MEDENT ([facility], ) Insurance Providers Payer name Policy type / Coverage type Policy ID Covered alliance party ID Covered alliance party's relationship to moran Policy Moran Plan Information [employer]BS [employer] P[employer] U/W Medigap Part B [id number] Self V [id number] [employer] P[employer] U/[employer] Medigap Part B [id number] 2.0.1.616358.3.227.99.572.76830.0 Self V [id number] [employer] P[employer] U/W Medigap Part B [id number] 2.0.1.917556.3.227.99.572.91565.0 Self V [id number] [employer] P[employer] U/[employer] Medigap Part B [id number] 2.0.1.832505.3.227.99.572.42766.0 Self V [id number] [employer] P[employer] U/[employer] Medigap Part B [id number] 2.0.1.555946.3.227.99.572.60857.0 Self V [id number] [employer] U/[employer] Medigap Part B [id number] 2.0.1.295747.3.227.99.572.70545.0 Self V [id number] [employer] P[employer] U/[employer] Medigap Part B [id number] 2.0.1.821752.3.227.99.572.47339.0 Self V [id number] [employer] U/[employer] Medigap Part B [id number] 2.16840.1.347720.3.227.99.572.98231.0 Self V [id number] [employer] U/[employer] Medigap Part B [id number] 2.16840.1.364683.3.227.99.572.37342.0 Self V [id number] [employer] Ppo U/[employer] Medigap Part B [id number] 2.16840.1.103728.3.227.99.572.96997.0 Self V [id number] [employer] ([place] Workers Compensation [id number] 2.16840.1.018746.3.227.99.991.861429.0 Self [id number] [employer] [place] Workers Compensation [id number] 2.840.1.755313.3.227.99.991.078829.0 Self [id number] [employer] [place] Workers Compensation [id number] 2.16840.1.961538.3.227.99.991.848705.0 Self [id number] [employer] [place] Workers Compensation [id number] 2.16840.1.303852.3.227.99.991.176548.0 Self [id number] [employer] [place] Workers Compensation [id number] 2.840.1.710607.3.227.99.991.429182.0 Self [id number] [employer] [place] Workers Compensation [id number] 2.16840.1.181384.3.227.99.991.021018.0 Self [id number] [employer] [place] Workers Compensation [id number] 2.16840.1.610712.3.227.99.991.751680.0 Self [id number] [employer] [place] Workers Compensation [id number] 2.16840.1.915758.3.227.99.991.408127.0 Self [id number] [employer] [place] Workers Compensation [id number] 2.16840.1.942215.3.227.99.991.947008.0 Self [id number] [employer] [place] Workers Compensation [id number] 2.16840.1.427108.3.227.99.991.924616.0 Self [id number] PMA WC W [id number] Self [id number] [employer] Workers Compensation [id number] 2.840.1.589857.3.227.99.991.690916.0 Self [id number] [employer] [place] Workers Compensation [id number] 2.0.1.729028.3.227.99.991.312837.0 Self [id number] [employer] [place] Workers Compensation [id number] 2.0.1.233260.3.227.99.991.165770.0 Self [id number] [employer] [place] Workers Compensation [id number] 2.0.1.160459.3.227.99.991.273297.0 Self [id number] [employer] P[employer] U/[employer] Commercial [id number] 2.0.1.720836.3.227.99.572.89138.0 Self V [id number] [employer] U/[employer] Medigap Part B [id number] 2.0.1.602828.3.227.99.572.64452.0 Self V [id number] [employer] P[employer] U/[employer] Commercial [id number] 2.0.1.145418.3.227.99.572.52795.0 Self V [id number] [employer] U/[employer] Medigap Part B [id number] 2.0.1.734898.3.227.99.572.13710.0 Self V [id number] [employer] P[employer] U/[employer] Commercial [id number] 2.0.1.024367.3.227.99.572.62654.0 Self V [id number] [employer] P[employer] U/[employer] Commercial [id number] 2.0.1.342514.3.227.99.572.67571.0 Self V [id number] [employer] P[employer] U/[employer] Commercial [id number] 2.0.1.053545.3.227.99.572.75615.0 Self V [id number] [employer] Commercial [id number] 2.0.1.520085.3.227.99.572.14190.0 Self V [id number] [employer] P[employer] U/[employer] Commercial [id number] 2.0.1.322972.3.227.99.572.12753.0 Self V [id number] [employer] U/W Medigap Part B [id number] 2..1.194980.3.227.99.572.78559.0 Self V [id number] [employer] BCBS [id number] [place] VYS [id number] [place] [place] 306/806 [id number] SP [id number] [place]BS [place] PPO 302/307 [id number] SP [id number] BC/BS [place] Commercial [id number] 2.0.1.207477.3.227.99.177.31711.0 Self S [id number] NO FAULT GENERIC E [id number] Self [id number] NO FAULT GENERIC E [id number] Self [id number] NO FAULT GENERIC E [id number] Self [id number] [employer] ([place]) Workers Compensation [id number] 2.0.1.231271.3.227.99.991.850450.0 Self [id number] BS Of [place] Commercial [id number] 2.16.840.1.630437.3.227.99.177.42141.0 [facility] V [id number] BC [place] O 302/307 [id number] SP [id number] ANSI-Commercial [id number]-lsha-[id number] ANSI-Commercial lm112pr1-7qw9-0m31-y3t5-9x33t1ves0g8 eq557de1-7ob1-3w18-h7y1-7r52t6wbv3n8 ANSI-Commercial [id number]-[id number]-g80m-[id number] k7a1251g-[id number]-o89f-[id number] ANSI-Commercial n31fd860-tq35-69pv-t65e-i4p1py59t703 p15av302-wb63-69gk-u36w-z4c6rq60s808 ANSI-Commercial [id number]-[id number] [id number]-pw71-0209-46d0-5065k3x84b65 ANSI-Commercial 58x62110-5h75-5ng5-105s-6ix21e7843go 47c11051-0z49-0bb5-754w-0sp14y5685sb ANSI-Commercial g1z9oj37-3098-5h15-n964-8z98c8mg8m6l p0k4yf15-6628-4e04-x404-1r12k1hx4e6i ANSI-Commercial 35v052s1-r852-9zg7-3d01-l89w58e594i1 05w272u4-i463-6uc8-3h54-i01q94d995o0 ANSI-Commercial 79846180-wq93-5055-7an6-s27q8g5f9u5e 69485470-eg46-8016-0ne3-m35h7b0x8f5r ANSI-Commercial 34hvyn07-wcn5-52x9-ddf8-c266l7703f1v 07yaef11-nlr9-11t4-rpc5-p731s4795a7l BCBS [employer] U/W Medigap Part B [id number] 2..1.163292.3.227.99.572.83938.0 Self S [id number] BCBS Medicare Blue U/W Commercial [id number] 2..1.477979.3.227.99.572.65905.0 Self V [id number] [employer]BS [employer] U/W Medigap Part B [id number] 2..1.188691.3.227.99.572.32422.0 Self S [id number] BCBS Medicare Blue U/W Commercial [id number] 2..1.398468.3.227.99.572.40333.0 Self V [id number] ANSI-Commercial 4q40pxtz-[id number] 3h85dizu-jwa8-96u6-3862-2180d43f840h ANSI-Commercial 007qtt25-egk5-114o-1t90-5h790r4f6a20 054lqs22-kui0-871a-3x69-3v538q5y0g34 ANSI-Commercial 63403073-3678-17l2-8zhv-t63g4253c0a0 26494730-8659-01x2-4eqb-n52j2399t1a8 ANSI-Commercial 379681ww-80v8-21pr-2496-0910o245og58 618830lb-63t6-26vd-8456-9252q201sp91 ANSI-Commercial 76537y1c-ern3-932g-dwph-kjq8168c506w 52106u9y-fth3-314o-ikli-nic9246c673v ANSI-Commercial 2463ix07-7j9o-084b-0a76-z81gl92pu225 7834kw30-1d4s-135x-1e34-e60ge07vz235 ANSI-Commercial 71em0n93-ui82-0573-t364-pb34y223kt4c 41lv7n06-fx24-7368-a994-qx70r723ik9b ANSI-Commercial 4g1137q0-891l-8890-o8q8-252t7yxv603q 5o9159s4-504e-0341-k7r2-089c6dag912i ANSI-Commercial oz1z08af-99xg-943i-56lz-2603c702x4zz ea2o29ga-09dx-666f-30ju-0376e654j5hy ANSI-Commercial 4b77pca1-8781-2l3s-p007-dcds458ih3pn 2m54qpb6-2998-9m3z-g293-fckh990vl5aa ANSI-Commercial 10l9v572-22h6-2n21-gf54-10ta5e8u4cx8 20p2i814-39q1-6x26-gp39-74em6f3r7ts0 ANSI-Commercial 2321x29l-7x55-7cqr-560x-d87711c8654r 5654e90i-8z19-7rvm-226q-c51909m7206l ANSI-Commercial 63228683-7yqm-646j-i024-s11811au51q1 48868639-5ikt-866k-q205-z78369cs58x6 ANSI-Commercial 81lu978n-p934-24y5-r1fw-7334xk969kll 78cy845a-t867-85v5-s8yb-9813kl121usv ANSI-Commercial 74uas7r0-g776-1vb9-h166-yf4867883196 42yvw6q6-l956-7cf4-h166-wz5428735004 ANSI-Commercial fiu94179-4939-3876-93a1-uj917nyn241i zvc59556-0035-3347-34k8-qf454vqu551j ANSI-Commercial r684239f-941k-15jv-rzg2-0r94m1v29574 a987767s-592u-69vz-myl6-1c84y5q35403 ANSI-Commercial iyp1yw6b-561f-0826-h73c-3m8429y1d8pr jxw6mb8z-491r-6745-x20r-5d8567g7j2vp ANSI-Commercial j74u8kja-309k-2154-y30c-19706ui610md o21q9xxf-238r-2340-h20a-84723gr711ff ANSI-Commercial 6an5p10i-v675-9571-m0c5-a0v9dfr24p9p 7zq3p77a-a044-8640-k5n3-a8w4dke57x1d BCBS [facility] 306/806 [id number] SP [id number] ANSI-Commercial 3357riq7-7223-69a9-4140-j4da68nm2722 9403mnj9-6854-80m9-5072-j9sd20mb8267 ANSI-Commercial f5g60613-cud4-6566-6h73-0l21222w1har t5y53828-hmm3-8020-1p99-3d92898d0yza ANSI-Commercial 631u9130-91k5-8089-45ka-6638y6zi5369 653e4226-41m1-4724-17nd-1368t7fi1324 ANSI-Commercial 7s3mg023-73vm-1p68-p9mi-3du25181i79n 7c8qr942-22qb-8d31-o8tf-4mh76033b93u ANSI-Commercial a11320v6-f489-7976-f7al-kew73u5u8ne1 x06716n2-j154-6223-z3je-wnp98l2p2rt2 ANSI-Commercial 82yv4737-70y7-031q-0y37-39c532lqhyp7 87pm5359-30i1-998m-0c58-88e676wcvhj3 ANSI-Commercial 42055n63-bj8x-4q78-592n-79k0435deck0 92421g43-bc8d-4t69-515h-65t5654isyg8 ANSI-Commercial 5ie38109-98ud-06e7-0071-2ws335902m1s 2us29541-41ia-48y0-9645-2ke177994v3f ANSI-Commercial s70cf377-1945-0865-5450-6r2zf780r5mv u62lx453-6532-2808-2528-8c6tu126s8ms ANSI-Commercial 6tft422u-609j-3858-u346-qgs49sd0sm39 2aqm930r-381z-6830-s833-nkq25qe8fg21 ANSI-Commercial 597906p6-6793-93g5-h64p-4m59b7700e09 560859w8-1411-24y7-u73f-9a28w0454a14 ANSI-Commercial 771u4447-9w9d-7631-wh14-nr7d1f64t79u 692q8203-4f9t-4231-rv12-ft2d1a48i50x ANSI-Commercial u7721c9y-6k53-98m0-5921-54x62kv2994f p1743t5o-9a56-45n9-4777-42e75ph4896b ANSI-Commercial 9qv7i07s-41ab-1p41-q039-705895j74415 8eg0y12m-62cq-2j82-b570-812637e09186 ANSI-Commercial 252v816m-72bx-4463-k749-tm7q301z3dt2 107n490j-49az-7191-w431-tn4e141q1ur4 ANSI-Commercial o722e866-5328-1w8t-0pn5-4l1647924131 i647h014-6661-0q0l-2tm4-6u4957402887 ANSI-Commercial x0luk5w9-53cd-5f40-1y91-775l631csooa a4ytx5e1-81lx-1l23-8v00-940q640rxgho ANSI-Commercial tc6s0n27-s99o-07v0-10m2-o6f45y160948 kb6j5e15-q01m-20h4-46w5-i8g46v316010 ANSI-Commercial dnryqlnp-o0q5-86plh3r3-29gm-81s6-91763i9y738e vcewysgq-b8x6-96lsa9u0-70zc-48p1-86193c2q967c ANSI-Commercial q29bvbg7-lb68-4h47-8079-94gq96w7nvg5 h97fvfe6-br04-1r77-8067-09qa74r0cdi8 ANSI-Commercial zg42spnw-794h-3256-1671-16v6c5013t3u ih31bler-553h-2924-3423-73n4d1202l0e ANSI-Commercial 5d0367y3-682z-898r-c493-33gg09788fy2 0y5789c0-617t-468r-s035-40fu92039ow4 ANSI-Commercial 7azy688w-6150-5x5i-d0p4-4t29g486969o 0brn146h-1606-3h3c-w1d6-2h33j998278n ANSI-Commercial 7ezm66oi-2h4g-8815-gz31-72w6203313g6 9tcw44hk-4m8j-2001-cx77-79l6141095i7 ANSI-Commercial 7dby5k9y-5900-1r25-70p9-5367m58097lx 5eer2y3a-2375-8j34-68p9-5897m86941wk ANSI-Commercial 6j7700nj-v36t-1310-9shh-21821f196320 4u3469ul-r97s-0951-5ifq-26015r892512 ANSI-Commercial 654nu5ak-s0e1-97s4-wq3m-x0675ez9i694 262rn7va-h6z9-90g6-bc5y-r8220en3t577 ANSI-Commercial 90xe5vn9-9g59-1a13-1ene-67azb3005r09 73fh5mp3-9l72-5y70-3mml-61qqm6851r79 ANSI-Commercial 50756023-621v-714r-g2w3-39x98ej3w6ul 88552987-020t-681k-d6z1-14d32ig3g7sx ANSI-Commercial v58t7r2e-6l56-4k00-m9k6-oi2w43jr125j e59c6b1i-2t28-7b08-n5l7-cp8x84fa423h ANSI-Commercial r489q7d9-ed71-1927-5ts7-5qj7185kt4r9 e298m3w2-cf17-9351-1af6-8xj7369xg9f3 ANSI-Commercial zr5315d0-913o-7c3a-p805-09411u86cj54 gt0575v7-967u-9t7v-u332-24127f16vc78 ANSI-Commercial 4494w249-3849-8a15-9u15-82f0cx6v8ss5 0027e163-5336-7q87-3v66-37e7xu9j6rt3 ANSI-Commercial sa922177-ry31-680b-7874-nak4167t3dv5 ex648801-lw27-924q-3397-wcx5293b8ll9 ANSI-Commercial 6ei18o4d-rr1m-4383-5207-5quplo95ep10 8nt27r3c-lx3h-6681-5092-7ieltw61aq48 ANSI-Commercial 0o957w84-3m0t-09sk-st11-5259676e5901 8z887i33-5t3h-18qu-cv06-1761215d8922 ANSI-Commercial 8u151i00-3f6j-1e28-1ig0-5443g4j36x7g 6n875i14-8x5z-9i91-4br6-8401w8o64y0o ANSI-Commercial 68351ons-nn0r-1oaa-5555-500a933ppx59 83956kcf-yx2b-0nry-6525-445z040zkn16 ANSI-Commercial j2175x0n-a0cu-6ldc-5ot7-0ry73ous6d82 x9234y5z-l0we-5yfr-1bk0-1iq74zey1a45 ANSI-Commercial k707u031-2145-0nm3-fp35-84046qzv4w59 d091h185-4371-1so0-lj88-61308ebb2n58 [employer]BS B [id number] S VYA [id number] GENERAL CASUALTY O [id number] S 483 705N ANSI-Commercial cd9010k7-3538-8826-4759-mjgfm340j9jy fr8394r2-2763-2166-6221-miwhl497g6tf ANSI-Commercial 38eq23f7-7283-93d9-k152-47595366rnyo 01cj08j7-7434-94e0-g964-02374806tqyj ANSI-Commercial dkk19387-k342-16v0-rz72-851dm80i4804 awj39599-q763-26n6-br31-034pz49i9715 ANSI-Commercial 04z774q8-9q5i-5m5q-2c1g-44e274x56p35 39r997g6-8h8d-6r2w-1c7c-22g898x25s71 BCBS Excell[employer] U/W Medigap Part B [id number] Self S [id number] BCBS Medicare Blue U/W Commercial [id number] Self V [id number] GENERAL CASUALTY COMPANIES [id number] 18 [id number] [place]/307 [id number] SP [id number] [place]/307 [id number] SP [id number] BCBS [place] Ppo U/W Medigap Part B [id number] Self S [id number] [employer] BCBS Health Maintenance Organization (HMO) [id number] Self [id number] BCBS [employer] Ppo U/W Medigap Part B [id number] Self S [id number] BCBS [employer] Ppo U/W Medigap Part B [id number] Self S [id number] BCBS [employer] Ppo U/W Medigap Part B [id number] Self S [id number] BLUE CROSS BLUE SHIELD -O/P [id number] 18 [id number] BLUE CROSS BLUE SHIELD -O/P [id number] 18 [id number] BCBS [employer] Ppo U/W Medigap Part B [id number] Self S [id number] BCBS [place] Ppo U/W Medigap Part B [id number] Self S [id number] BCBS [place] Ppo U/W Medigap Part B [id number] Self S [id number] EXCELL[employer] BCBS B [id number] S HOSSEIN [id number] [place]/307 [id number] SP [id number] MEMIC -PHYSICIAN [id number] 1 8 [id number] MEMIC -O/P [id number] 18 [id number] MEMIC SSV O [id number] S [id number] [place]CELL[place] BCBS B [id number] S VYS [id number] BS Of [facility] [place] [place] [id number] [place]/307 [id number] SP [id number] MEMIC SSV W/C [id number] SP [id number] MEMIC SSV W/C [id number] SP [id number] MEMIC SSV W/C [id number] SP [id number] PMA MANAGEMENT [facility] [id number] SP [id number] OTHER WORKERS COMPENSATION [id number] SP [id number] [place] 306/806 [id number] SP [id number] [place]/307 [id number] SP [id number] MEMIC SSV W/C UNAVAILABLE SP UNAV AILABLE OTHER WORKERS COMPENSATION [id number] SP [id number] SELF PAY UNAVAILABLE UNAVAILA BLE MEMIC [id number] SP [id number] MEMIC [id number] SP [id number] [employer] MANAGEMENT P [id number] S [id number] [employer] BCBS P [id number] S [id number] PMA MANAGEMENT [facility] DOI [id number] SP DOI [id number] PMA MANAGEMENT [facility] [id number] SP [id number] [place] [place] 306/806 [id number] SP [id number] [employer] [place] 306/806 UNKNOWN SP UNKNOWN [employer] P [id number] S [id number] PMA MANAGEMENT [facility] [id number] SP [id number] [facility] P UNAVAILABLE [id number] S UNAVAILABLE *EMPLOYEE HEALTH* *EMPLOYEE HEALTH* SP *EMPLOYEE HEALTH* [facility] [id number] SP [id number] [place]/307 [id number] SP [id number] [place]/307 [id number] SP [id number] [place] 306/806 [id number] SP [id number] [place] 302/307 [id number] SP [id number] [place] [id number] SP [id number] [place] 302/307 [id number] SP [id number] BCBS OF [place] 020/520 [id number] SP [id number] [place] 306/806 [id number] SP [id number] [place] 020/520 [id number] SP [id number] SELF PAY ONLY [id number] SP [id number] [place]BS [place] H[place] [id number] SP [id number] EXCELLUS BCBS B [id number] S [id number] [place]/307 [id number] SP [id number] [place] 302/307 [id number] SP [id number] EXCELLUS BCBS B [id number] S [id number] ANSI-Commercial [id number]-[id number]-[id number] 1025mda2-e8a7-0um0-g9p8-707926qzfj1r ANSI-Commercial 00per6rs-5m96-6xl0-52pu-ik2766r8m3v4 48sco3qj-5d39-0yn6-10gj-rb9729z2b7u7 ANSI-Commercial [id number]-iiqdaog63270 p7te7876-7c12-7383-1u7d-jfaccgj12927 ANSI-Clinverse a90spf4p-43d2-90vu-[id number] w32bpu0k-10m7-00un-[id number] ANSI-Commercial f10n2w9i-1637-62b0-g8ic-am1348jf212w y84v7p0q-2709-06t0-h4gh-kh3785kt107n ANSI-Commercial w3u20792-6139-00qc-p129-bpn2402h29rc f6g23545-5703-18zv-s416-zbf0890z07tz ANSI-Commercial 3k34n8d3-7652-6d16-724y-0tg9n9vk1hx6 1f51q3k1-7655-7v72-701n-6bh0a0em7hq1 ANSI-Commercial 100c9421-4208-2939-pw59-[id number] 742y2275-1836-3816-ar54-p8fc0291128n ANSI-Commercial w6609l45-jii9-6rvq-c6p7-88899isg5v14 s4739d75-huj6-7riw-a4h1-74499flx7n45 ANSI-Commercial [id number]-h4h2-8i59-lh6n-[id number] 73094543-k5d6-8g66-ic3v-l98191b25450 ANSI-Commercial 099405xe-7459-7bsp-7a36-171235p2ba3j 013850ja-6502-8omp-8u36-834467h0ol3y ANSI-Commercial m8f8585b-2h0x-078u-[id number] q3j2566e-4e7j-989j-3655-59432589a599 ANSI-Commercial z2e7d8z7-7513-303t-m0g2-7w54796xp211 d1o4w0g7-1170-375k-k7g7-5k94576qk352 ANSI-Commercial 16mp73g7-267c-42hv-9b83-3bs08xs3c5v8 86ox68l5-055b-85ov-3d08-2sv42rh1c1j4 ANSI-Commercial 295b7oe6-qoct-26a6-1n7l-y793s0h9c09a 487m0kn0-huyg-51q4-4y1u-i708a9l3x40s ANSI-Commercial [id number]-l547-6oh4772kv6x4 [id number]-k217-8yi6787zz7r4 ANSI-Commercial 9s1hu9km-735n-2555-0o3m-10zen70i9350 1g8js5jt-495r-7688-3v1b-41fqi64e2101 ANSI-Commercial ie8486v2-925h-2w06-8k1o-2pgrs4d90730 kx2239f3-674z-4j91-5x3x-7lfus8b78130 ANSI-Commercial 69807r7p-40b8-8304-n1rm-983f92880d4a 54350a0b-17e7-3157-k6my-861s37029b0z ANSI-Commercial 65u25t48-js46-4na2-6a28-06hqf798p5q1 39i88u12-zl90-7zi0-6h96-52qup488l0u7 ANSI-Commercial 1hw31509-bai8-3482-gd22-3597o8tm547j 2uv53885-crq1-5840-mn70-7463t8hn966w ANSI-Commercial q8uc119p-t8cd-7z5m-57bx-3x03z83q93b4 e5ut636t-k8al-9r4r-57oo-8j98y51p81g1 ANSI-Commercial uov43d29-0e74-76s4-fu5b-72d6016478fi upu32o38-5h72-64o7-rc5s-89e5882427dm ANSI-Commercial 88502ue7-wm51-815x-b81b-[id number] 83870pt0-ph16-106i-c54e-1256p3k52896 QBE INSURANCE [id number] SP [id number] N ANSI-Commercial 4by87iwf-09f0-3ilo-fat9-8y65nnw96391 7up29ehw-58e6-1pyw-rrz8-0t58ltk54469 ANSI-Commercial 7lv55833-6205-4jww-i113-05x2l3t0qe1z 7jo30917-6082-4byy-x556-88g7y6i7pa7w ANSI-Commercial w9k8i2sm-27w3-8786-ql1m-85145xjo85q5 n1q8x5kf-16m5-6188-jf6c-39791buv66y5 ANSI-Commercial 2d33l853-xo05-67e9-flgg-8ear78p11n58 1m14z682-ut77-18v6-oece-2uoa17y89p83 ANSI-Commercial 52ao939s-8k9j-50su-0g0u-116442w1v863 74se399u-5i9g-06uu-1n5f-899840u0q521 ANSI-Commercial 38os3c14-v566-619a-74p0-3merm7j1v0lu 35vq7a56-z136-161y-69n8-1laic6f8c0lp Problems, Conditions, and Diagnoses Code Display Name Description Problem Type Effective Dates Data Source(s) M47.812 [id number] Cervical spondylosis Problem 06/19/2021 12:0 0:00 AM EDT eCW1 ([facility]) G56.03 [id number] Bilateral carpal tunnel syndrome Problem 06/19/2021 12:00:00 AM EDT eCW1 ([facility]) Z12.11 [id number] Colon cancer screening Problem 03/19/2021 12 :00:00 AM EDT eCW1 ([facility]) Surgeries/Procedures Procedure Description Date Indications Data Source(s) Endoscopy Upper GI Biopsy 02/26/2021 12:00:00 AM EDT [facility] ([facility], ) Colonoscopy W/ Poly 02/26/2021 12:00:00 AM EDT [facility] ([facility], ) Immunization: Flublok Quadrivalent (18 years & older) 0.5mL IM (Influenza) 09/19/2020 12:00:00 AM EDT eCW1 ([facility]) XTRNL PT ACTIVATED ECG RECORD MONITOR 30 DAYS 07/27/20 20 12:00:00 AM EDT [facility] ([facility]) XTRNL PT ACTIVTD ECG DWNLD 30 DAYS PHYS R&I 07/27/2020 12:00:00 AM EDT [facility] ([facility]) ECG ROUTINE ECG W/LEAST 12 LDS W/I&R 07/12/2020 12:00: 00 AM EDT [facility] ([facility]) Results ID Date Data Source [id number] 08/10/2021 10:25:00 AM EDT [facility] Name Value Range Interpretation Code Description Data Jessica rce(s) Supporting Document(s) SARS-CoV-2 (COVID-19) RNA [Presence] in Respiratory specimen by JIMMIE with probe detection Not Detected [facility] This lab was ordered by [facility] and reported by [employer]. ID Date Data Source LIPASE 05/24/2021 12:00:00 AM EDT eCW1 ([facility]) Name Value Range Interpretation Code Description Data Jessica rce(s) Supporting Document(s) [id number] LIPASE eCW1 ([facility]) ID Date Data Source Comprehensive Metabolic Profile (CMP) 05/24/2021 12:00:00 AM EDT eCW1 ([facility]) Name Value Range Interpretation Code Description Data Jessica rce(s) Supporting Document(s) 61 70-100 GLUCOSE, FASTING eCW1 ([facility]) 13 7-18 BLOOD UREA NITROGEN eCW1 ([facility]) 0.49 0.55-1.30 CREATININE FOR GFR eCW1 ([facility]) 142 136-145 SODIUM LEVEL eCW1 ([facility]) > 60.0 >51 GLOMERULAR FILTRATION RATE eCW 1 ([facility]) 4.1 3.5-5.1 POTASSIUM SERUM eCW1 ([facility]) 107 98-107 CHLORIDE LEVEL eCW1 ([facility]) 9.3 8.5-10.1 CALCIUM LEVEL eCW1 ([facility]) 30 21-32 CARBON DIOXIDE LEVEL eCW1 ([facility]) 10 7-37 AST/SGOT eCW1 ([facility]) 96 45-117 ALKALINE PHOSPHATASE eCW1 ([facility]) 24 12-78 ALT/SGPT eCW1 ([facility]) 0.5 0.2-1.0 BILIRUBIN,TOTAL eCW1 ([facility]) 7.2 6.4-8.2 TOTAL PROTEIN eCW1 ([facility]) 3.9 3.2-5.2 ALBUMIN eCW1 ([facility]) 1.2 1.2-2.2 ALBUMIN/GLOBULIN RATIO eCW1 ([facility]) ID Date Data Source CBC with Differential 05/24/2021 12:00:00 AM EDT eCW1 ([facility]) Name Value Range Interpretation Code Description Data Jessica rce(s) Supporting Document(s) 5.3 4.0-10.0 WHITE BLOOD COUNT eCW1 ([facility]) 4.22 4.00-5.40 RED BLOOD COUNT eCW1 ([facility]) 12.7 12.0-15.5 HEMOGLOBIN eCW1 ([facility]) 96.4 80.0-96.0 MEAN CORPUSCULAR VOLUME e CW1 ([facility]) 40.7 36.0-47.0 HEMATOCRIT eCW1 ([facility] hospital) 30.1 27.0-33.0 MEAN CORPUSCULAR HEMOGLOB IN eCW1 ([facility]) 31.2 32.0-36.5 MEAN CORPUSCULAR HGB CONC eCW1 ([facility]) 13.0 11.5-14.5 RED CELL DISTRIBUTION WID TH eCW1 ([facility]) 53.4 36.0-66.0 NEUTROPHILS % eCW1 ([facility]) 233 150-450 PLATELET COUNT, AUTOMATED eCW1 ([facility]) 31.6 24.0-44.0 LYMPH % eCW1 ([facility]) 3.6 0.0-3.0 EOS % eCW1 ([facility]) 10.2 2.0-8.0 MONO % eCW1 ([facility]) 2.8 1.5-8.5 NEUTROPHILS # eCW1 ([facility]) 0.8 0.0-1.0 BASO % eCW1 ([facility]) 0.2 0.0-0.5 EOS # eCW1 ([facility]) 1.7 1.5-5.0 LYMPH # eCW1 ([facility]) 0.5 0.0-0.8 MONO # eCW1 ([facility]) 0.0 0.0-0.2 BASO # eCW1 ([facility]) ID Date Data Source [id number] 02/26/2021 09:08:00 AM EDT [facility] ([facility], ) Name Value Range Interpretation Code Description Data Jessica rce(s) Supporting Document(s) Surgical pathology study Laboratory test result [facility] ([facility]) FINAL DIAGNOSIS A-Small bowel, biopsy: Small intestinal mucosa with normal villous architecture and nonspecific mild inflammation. No evidence of celiac disease. B--Gastric biopsy: Gastric mucosa with reactive changes. No H.pylori is identified. C-Colon, hepatic flexure polyp, polypectomy: Polypoid fragments of colonic mucosa with hyperplastic changes. 02/27/2021 - 1309 CLINICAL DIAGNOSIS Iron deficiency anemia, abdominal pain, heartburn, and colon polyp 02/26/2021 - 1414 GROSS DIAGNOSIS A - Received in formalin labeled "biopsy small bowel, R/O celiac" and consists of fragments of tissue, 0.1 x 0.1 x 0.1 cm. All in one. B - Received in formalin labeled "gastric biopsy, R/O H. pylori" and consists of fragments of tissue, 0.2 x 0.1 x 0.1 cm. All in one. C - Received in formalin labeled "colon polyp @ hepatic flexure (previous polypectomy site)" consists of fragments of tissue, 1 x 1 x 0.2 cm in aggregate. All in one. -OA 02/26/2021 - 1414 Signed MORA JACOBSON MD 02/27/2021 1309 ID Date Data Source [id number] 02/21/2021 11:00:00 AM EDT [facility] Name Value Range Interpretation Code Description Data Jessica rce(s) Supporting Document(s) SARS-CoV-2 (COVID-19) RNA [Presence] in Respiratory specimen by JIMMIE with probe detection Not Detected [facility] This lab was ordered by [facility] and reported by [employer] ID Date Data Source t-Transglutaminase (tTG) IgA 12/19/2020 12:00:00 AM EST eCW1 ([facility]) Name Value Range Interpretation Code Description Data Jessica rce(s) Supporting Document(s) Tissue transglutaminase IgA Ab [Units/volume] in Serum <2 0-3 TISSUE TRANSGLUTAMINASE IgA eCW1 ([facility]) ID Date Data Source FOLATE 12/19/2020 12:00:00 AM EST eCW1 ([facility]) Name Value Range Interpretation Code Description Data Jessica rce(s) Supporting Document(s) > 24.0 >5.4 FOLATE eCW1 ([facility]) ID Date Data Source FERRITIN 12/19/2020 12:00:00 AM EST eCW1 ([facility]) Name Value Range Interpretation Code Description Data Jessica rce(s) Supporting Document(s) 72 2-252 FERRITIN eCW1 ([facility]) ID Date Data Source [id number] 12/17/2020 09:15:00 AM EST [facility] Name Value Range Interpretation Code Description Data Jessica rce(s) Supporting Document(s) SARS coronavirus 2 RNA [Presence] in Res piratory specimen by JIMMIE with probe detection NEGATIVE [facility] This lab was ordered by [facility] a nd reported by [facility]. ID Date Data Source [id number] 11/30/2020 12:00:00 AM EST [facility] Name Value Range Interpretation Code Description Data Jessica rce(s) Supporting Document(s) SARS-CoV-2 (COVID-19) RNA [Presence] in Respiratory specimen by JIMMIE with probe detection Not Detected [facility] This lab was ordered by [facility] and reported by [facility]. Procedure Social History Code Duration Value Status Description Data Source(s ) Smoking 07/10/2021 12:00:00 AM EDT Never Smoker completed Never S moker eCW1 ([facility]) Smoking 07/10/2021 12:00:00 AM EDT Never Smoker completed Never S moker eCW1 ([facility]) Smoking 06/19/2021 12:00:00 AM EDT Never Smoker completed Never S moker eCW1 ([facility]) Smoking 06/19/2021 12:00:00 AM EDT Never Smoker completed Never S moker eCW1 ([facility]) Smoking 06/19/2021 12:00:00 AM EDT Never Smoker completed Never S moker eCW1 ([facility]) Smoking 06/19/2021 12:00:00 AM EDT Never Smoker completed Never S moker eCW1 ([facility]) Smoking 06/19/2021 12:00:00 AM EDT Never Smoker completed Never S moker eCW1 ([facility]) Smoking 06/19/2021 12:00:00 AM EDT Never Smoker completed Never S moker eCW1 ([facility]) Smoking 06/19/2021 12:00:00 AM EDT Never Smoker completed Never S moker eCW1 ([facility]) Smoking 06/19/2021 12:00:00 AM EDT Never Smoker completed Never S moker eCW1 ([facility]) Smoking 06/19/2021 12:00:00 AM EDT Never Smoker completed Never S moker eCW1 ([facility]) Smoking 05/24/2021 12:00:00 AM EDT Never Smoker completed Never S moker eCW1 ([facility]) Smoking 05/24/2021 12:00:00 AM EDT Never Smoker completed Never S moker eCW1 ([facility]) Smoking 03/19/2021 12:00:00 AM EDT Never Smoker completed Never S moker eCW1 ([facility]) Smoking 01/15/2021 12:00:00 AM EST Never Smoker completed Never S moker eCW1 ([facility]) Smoking 01/15/2021 12:00:00 AM EST Never Smoker completed Never S moker eCW1 ([facility]) Smoking 01/15/2021 12:00:00 AM EST Never Smoker completed Never S moker eCW1 ([facility]) Smoking 01/15/2021 12:00:00 AM EST Never Smoker completed Never S moker eCW1 ([facility]) Smoking 01/15/2021 12:00:00 AM EST Never Smoker completed Never S moker eCW1 ([facility]) Smoking 01/15/2021 12:00:00 AM EST Never Smoker completed Never S moker eCW1 ([facility]) Smoking 01/15/2021 12:00:00 AM EST Never Smoker completed Never S moker eCW1 ([facility]) Smoking 01/15/2021 12:00:00 AM EST Never Smoker completed Never S moker eCW1 ([facility]) Smoking 12/19/2020 12:00:00 AM EST Never Smoker completed Never S moker eCW1 ([facility]) Smoking 12/19/2020 12:00:00 AM EST Never Smoker completed Never S moker eCW1 ([facility]) Smoking 12/19/2020 12:00:00 AM EST Never Smoker completed Never S moker eCW1 ([facility]) Smoking 12/19/2020 12:00:00 AM EST Never Smoker completed Never S moker eCW1 ([facility]) Smoking 12/19/2020 12:00:00 AM EST Never Smoker completed Never S moker eCW1 ([facility]) Smoking 12/19/2020 12:00:00 AM EST Never Smoker completed Never S moker eCW1 ([facility]) Smoking 12/19/2020 12:00:00 AM EST Never Smoker completed Never S moker eCW1 ([facility]) Smoking 12/19/2020 12:00:00 AM EST Never Smoker completed Never S moker eCW1 ([facility]) Smoking 12/13/2020 12:00:00 AM EST Never Smoker completed Never S moker eCW1 ([facility]) Smoking 12/13/2020 12:00:00 AM EST Never Smoker completed Never S moker eCW1 ([facility]) Smoking 12/04/2020 12:00:00 AM EST Never Smoker completed Never S moker eCW1 ([facility]) Smoking 12/04/2020 12:00:00 AM EST Never Smoker completed Never S moker eCW1 ([facility]) Smoking 12/04/2020 12:00:00 AM EST Never Smoker completed Never S moker eCW1 ([facility]) Smoking 07/12/2020 12:00:00 AM EDT Patient is a former smoker completed Patient is a former smoker [facility] ([facility]) Vital Signs ID Date Data Source UNK Name Value Range Interpretation Code Description Data Source(s) Body weight 172 [lb_av] 172 [lb_av] eCW1 ([facility]) Body weight 78.02 kg 78.02 kg eCW1 ([facility]) Body height 62 [in_i] 62 [in_i] eCW1 ([facility]) Body mass index (BMI) [Ratio] 31.46 kg/m2 31.46 kg/m2 eCW1 ([facility]) Heart rate 72 /min 72 /min eCW1 ([facility]) Respiratory rate 20 /min 20 /min eCW1 ([facility]) Body temperature 97.8 [degF] 97.8 [degF] eCW1 ( [facility]) Systolic blood pressure 116 mm[Hg] 116 mm[Hg] e CW1 ([facility]) Diastolic blood pressure 72 mm[Hg] 72 mm[Hg] eCW1 ([facility]) Body weight 170.0 [lb_av] 170.0 [lb_av] eCW1 ([facility]) Body height 62 [in_i] 62 [in_i] eCW1 ([facility]) Body mass index (BMI) [Ratio] 31.09 kg/m2 31.09 kg/m2 eCW1 ([facility]) Heart rate 58 /min 58 /min eCW1 ([facility]) Respiratory rate 20 /min 20 /min eCW1 ([facility]) Body temperature 97.8 [degF] 97.8 [degF] eCW1 ( [facility]) Systolic blood pressure 118 mm[Hg] 118 mm[Hg] e CW1 ([facility]) Diastolic blood pressure 62 mm[Hg] 62 mm[Hg] eCW1 ([facility]) Body weight 170.0 [lb_av] 170.0 [lb_av] eCW1 ([facility]) Body height 62 [in_i] 62 [in_i] eCW1 ([facility]) Body mass index (BMI) [Ratio] 31.09 kg/m2 31.09 kg/m2 eCW1 ([facility]) Heart rate 58 /min 58 /min eCW1 ([facility]) Respiratory rate 20 /min 20 /min eCW1 ([facility]) Body temperature 97.8 [degF] 97.8 [degF] eCW1 ( [facility]) Systolic blood pressure 118 mm[Hg] 118 mm[Hg] e CW1 ([facility]) Diastolic blood pressure 62 mm[Hg] 62 mm[Hg] eCW1 ([facility]) Body weight 168.6 [lb_av] 168.6 [lb_av] eCW1 ([facility]) Body height 62 [in_i] 62 [in_i] eCW1 ([facility]) Body mass index (BMI) [Ratio] 30.83 kg/m2 30.83 kg/m2 eCW1 ([facility]) Heart rate 73 /min 73 /min eCW1 ([facility]) Respiratory rate 20 /min 20 /min eCW1 ([facility]) Body temperature 97.9 [degF] 97.9 [degF] eCW1 ( [facility]) Systolic blood pressure 122 mm[Hg] 122 mm[Hg] e CW1 ([facility]) Diastolic blood pressure 70 mm[Hg] 70 mm[Hg] eCW1 ([facility]) Body weight 165.6 [lb_av] 165.6 [lb_av] eCW1 ([facility]) Body height 62 [in_i] 62 [in_i] eCW1 ([facility]) Body mass index (BMI) [Ratio] 30.29 kg/m2 30.29 kg/m2 eCW1 ([facility]) Heart rate 72 /min 72 /min eCW1 ([facility]) Respiratory rate 20 /min 20 /min eCW1 ([facility]) Body temperature 97.4 [degF] 97.4 [degF] eCW1 ( [facility]) Systolic blood pressure 110 mm[Hg] 110 mm[Hg] e CW1 ([facility]) Diastolic blood pressure 62 mm[Hg] 62 mm[Hg] eCW1 ([facility]) Body mass index (BMI) [Ratio] 31.2 kg/m2 31.2 k g/m2 [facility] ([facility] ) Gypsum body weight 105 [lb_av] 105 [lb_av] MEDEN T ([facility], ) Body weight 74.844 kg 74.844 kg [facility] ([facility] ) Body surface area Derived from formula 1.74 m2 1.74 m2 [facility] ([facility] ) Systolic blood pressure 110 mm[Hg] 110 mm[Hg] [facility] ([facility], ) Diastolic blood pressure 64 mm[Hg] 64 mm[Hg] [facility] ([facility], ) Body height 61 [in_i] 61 [in_i] [facility] ([facility], ) 5'1" Body weight 165.00 [lb_av] 165.00 [lb_av] [facility] T ([facility], ) Body weight 66.2 [lb_av] 66.2 [lb_av] eCW1 ([facility]) Body height 62 [in_i] 62 [in_i] eCW1 ([facility]) Body mass index (BMI) [Ratio] 12.11 kg/m2 12.11 kg/m2 eCW1 ([facility]) Heart rate 59 /min 59 /min eCW1 ([facility]) Respiratory rate 18 /min 18 /min eCW1 ([facility]) Body temperature 97.3 [degF] 97.3 [degF] eCW1 ( [facility]) Systolic blood pressure 114 mm[Hg] 114 mm[Hg] e CW1 ([facility]) Diastolic blood pressure 60 mm[Hg] 60 mm[Hg] eCW1 ([facility]) Diastolic blood pressure 70 mm[Hg] 70 mm[Hg] [facility] ([facility], ) Body height 61 [in_i] 61 [in_i] [facility] ([facility], ) 5'1" Body weight 165.00 [lb_av] 165.00 [lb_av] MED[facility] T ([facility], ) Body mass index (BMI) [Ratio] 31.2 kg/m2 31.2 k g/m2 [facility] ([facility], ) Gypsum body weight 105 [lb_av] 105 [lb_av] [facility] T ([facility], ) Body weight 74.844 kg 74.844 kg [facility] ([facility]) Body surface area Derived from formula 1.74 m2 1.74 m2 [facility] ([facility], ) Systolic blood pressure 118 mm[Hg] 118 mm[Hg] M [facility] ([facility], ) Body weight 163 [lb_av] 163 [lb_av] eCW1 ([facility]) Body height 62 [in_i] 62 [in_i] eCW1 ([facility]) Body mass index (BMI) [Ratio] 29.81 kg/m2 29.81 kg/m2 W1 ([facility]) Heart rate 71 /min 71 /min eCW1 ([facility]) Respiratory rate 18 /min 18 /min eCW1 ([facility]) Body temperature 98.3 [degF] 98.3 [degF] eCW1 ( [facility]) Systolic blood pressure 100 mm[Hg] 100 mm[Hg] e CW1 ([facility]) Diastolic blood pressure 60 mm[Hg] 60 mm[Hg] eCW1 ([facility]) Body weight 160 [lb_av] 160 [lb_av] eCW1 ([facility]) Body height 62 [in_i] 62 [in_i] eCW1 ([facility]) Body mass index (BMI) [Ratio] 29.26 kg/m2 29.26 kg/m2 eCW1 ([facility]) Heart rate 78 /min 78 /min eCW1 ([facility]) Respiratory rate 16 /min 16 /min eCW1 ([facility]) Body temperature 97.3 [degF] 97.3 [degF] eCW1 ( [facility]) Systolic blood pressure 118 mm[Hg] 118 mm[Hg] e CW1 ([facility]) Diastolic blood pressure 72 mm[Hg] 72 mm[Hg] eCW1 ([facility]) Body weight 161 [lb_av] 161 [lb_av] eCW1 ([facility]) Body height 62 [in_i] 62 [in_i] eCW1 ([facility]) Body mass index (BMI) [Ratio] 29.44 kg/m2 29.44 kg/m2 eCW1 ([facility]) Heart rate 75 /min 75 /min eCW1 ([facility]) Respiratory rate 18 /min 18 /min eCW1 ([facility]) Body temperature 97.1 [degF] 97.1 [degF] eCW1 ( [facility]) Systolic blood pressure 130 mm[Hg] 130 mm[Hg] e CW1 ([facility]) Diastolic blood pressure 72 mm[Hg] 72 mm[Hg] eCW1 ([facility]) Body height 61 [in_i] 61 [in_i] [facility] 5'1" Body weight 155.25 [lb_av] 155.25 [lb_av] MEDEN T ([facility]) Body mass index (BMI) [Ratio] 29.3 kg/m2 29.3 k g/m2 [facility] ([facility]) Gypsum body weight 105 [lb_av] 105 [lb_av] MEDEN T ([facility]) Body weight 70.421 kg 70.421 kg [facility] ([facility]) Body surface area Derived from formula 1.70 m2 1.70 m2 [facility] ([facility]) Systolic blood pressure 122 mm[Hg] 122 mm[Hg] M EDENT ([facility]) Diastolic blood pressure 81 mm[Hg] 81 mm[Hg] [facility] ([facility]) Body weight 155.00 [lb_av] 155.00 [lb_av] MEDEN T ([facility]) Body height 62 [in_i] 62 [in_i] [facility] 5'2" Body mass index (BMI) [Ratio] 28.3 kg/m2 28.3 k g/m2 [facility] ([facility]) Systolic blood pressure--sitting 110 mm[Hg] 110 mm[Hg] [facility] ([facility]) Diastolic blood pressure--sitting 66 mm[Hg] 66 mm[Hg] [facility] ([facility]) Systolic blood pressure--standing 106 mm[Hg] 10 6 mm[Hg] MEDENT ([facility]) Diastolic blood pressure--standing 66 mm[Hg] 6 6 mm[Hg] [facility] ([facility]) Patient Treatment Plan of Care Planned Activity Planned Date Details Description Data Source (s) Nortriptyline 50 MG Oral Capsule 06/19/2021 12:00:00 AM EDT eCW1 ([facility]) Mupirocin 20 MG/ML Topical Cream 06/19/2021 12:00:00 AM EDT eCW1 ([facility]) Polyethylene Glycol - 06/19/2021 12:00:00 AM EDT eCW1 ([facility]) Carpal Tunnel Wrist Stabilizer - 06/19/2021 12:00:00 AM EDT eCW1 ([facility]) Nortriptyline 25 MG Oral Capsule 06/19/2021 12:00:00 AM EDT eCW1 ([facility]) Mupirocin 20 MG/ML Topical Cream 06/19/2021 12:00:00 AM EDT eCW1 ([facility]) Polyethylene Glycol - 06/19/2021 12:00:00 AM EDT eCW1 ([facility]) Carpal Tunnel Wrist Stabilizer - 06/19/2021 12:00:00 AM EDT eCW1 ([facility]) Nortriptyline 25 MG Oral Capsule 06/19/2021 12:00:00 AM EDT eCW1 ([facility]) Mupirocin 20 MG/ML Topical Cream 06/19/2021 12:00:00 AM EDT eCW1 ([facility]) Polyethylene Glycol - 06/19/2021 12:00:00 AM EDT eCW1 ([facility]) Carpal Tunnel Wrist Stabilizer - 06/19/2021 12:00:00 AM EDT eCW1 ([facility]) Nortriptyline 25 MG Oral Capsule 06/19/2021 12:00:00 AM EDT eCW1 ([facility]) Mupirocin 20 MG/ML Topical Cream 06/19/2021 12:00:00 AM EDT eCW1 ([facility]) Polyethylene Glycol - 06/19/2021 12:00:00 AM EDT eCW1 ([facility]) Carpal Tunnel Wrist Stabilizer - 06/19/2021 12:00:00 AM EDT eCW1 ([facility]) Nortriptyline 25 MG Oral Capsule 06/19/2021 12:00:00 AM EDT eCW1 ([facility]) Mupirocin 20 MG/ML Topical Cream 06/19/2021 12:00:00 AM EDT eCW1 ([facility]) Polyethylene Glycol - 06/19/2021 12:00:00 AM EDT eCW1 ([facility]) Carpal Tunnel Wrist Stabilizer - 06/19/2021 12:00:00 AM EDT eCW1 ([facility]) Nortriptyline 25 MG Oral Capsule 06/19/2021 12:00:00 AM EDT eCW1 ([facility]) Mupirocin 20 MG/ML Topical Cream 06/19/2021 12:00:00 AM EDT eCW1 ([facility]) Polyethylene Glycol - 06/19/2021 12:00:00 AM EDT eCW1 ([facility]) Carpal Tunnel Wrist Stabilizer - 06/19/2021 12:00:00 AM EDT eCW1 ([facility]) Nortriptyline 25 MG Oral Capsule 06/19/2021 12:00:00 AM EDT eCW1 ([facility]) Mupirocin 20 MG/ML Topical Cream 06/19/2021 12:00:00 AM EDT eCW1 ([facility]) Polyethylene Glycol - 06/19/2021 12:00:00 AM EDT eCW1 ([facility]) Carpal Tunnel Wrist Stabilizer - 06/19/2021 12:00:00 AM EDT eCW1 ([facility]) Nortriptyline 25 MG Oral Capsule 06/19/2021 12:00:00 AM EDT eCW1 ([facility]) Mupirocin 20 MG/ML Topical Cream 06/19/2021 12:00:00 AM EDT eCW1 ([facility]) Polyethylene Glycol - 06/19/2021 12:00:00 AM EDT eCW1 ([facility]) Carpal Tunnel Wrist Stabilizer - 06/19/2021 12:00:00 AM EDT eCW1 ([facility]) Nortriptyline 25 MG Oral Capsule 06/19/2021 12:00:00 AM EDT eCW1 ([facility]) Nortriptyline 50 MG Oral Capsule 06/19/2021 12:00:00 AM EDT eCW1 ([facility]) Carpal Tunnel Wrist Stabilizer - 06/19/2021 12:00:00 AM EDT eCW1 ([facility]) Nortriptyline 25 MG Oral Capsule 06/19/2021 12:00:00 AM EDT eCW1 ([facility]) Mupirocin 20 MG/ML Topical Cream 06/19/2021 12:00:00 AM EDT eCW1 ([facility]) Polyethylene Glycol - 06/19/2021 12:00:00 AM EDT eCW1 ([facility]) Meclizine Hydrochloride 25 MG Oral Tablet 01/16/2021 12:00:00 AM ES T eCW1 ([facility]) Meclizine Hydrochloride 25 MG Oral Tablet 01/16/2021 12:00:00 AM ES T eCW1 ([facility]) Meclizine Hydrochloride 25 MG Oral Tablet 01/16/2021 12:00:00 AM ES T eCW1 ([facility]) Meclizine Hydrochloride 25 MG Oral Tablet 01/16/2021 12:00:00 AM ES T eCW1 ([facility]) Meclizine Hydrochloride 25 MG Oral Tablet 01/16/2021 12:00:00 AM ES T eCW1 ([facility]) Meclizine Hydrochloride 25 MG Oral Tablet 01/16/2021 12:00:00 AM ES T eCW1 ([facility]) Meclizine Hydrochloride 25 MG Oral Tablet 01/16/2021 12:00:00 AM ES T eCW1 ([facility]) Meclizine Hydrochloride 25 MG Oral Tablet 01/16/2021 12:00:00 AM ES T eCW1 ([facility]) tizanidine 4 MG Oral Tablet 01/08/2021 12:00:00 AM EST eCW1 ([facility]) Amoxicillin 500 MG Oral Capsule 12/21/2020 12:00:00 AM EST eCW1 ([facility]) Levofloxacin 250 MG Oral Tablet 12/21/2020 12:00:00 AM EST eCW1 ([facility]) pantoprazole 40 MG Delayed Release Oral Tablet 12/21/2020 12:00:00 AM EST eCW1 ([facility]) Amoxicillin 500 MG Oral Capsule 12/21/2020 12:00:00 AM EST eCW1 ([facility]) Levofloxacin 250 MG Oral Tablet 12/21/2020 12:00:00 AM EST eCW1 ([facility]) pantoprazole 40 MG Delayed Release Oral Tablet 12/21/2020 12:00:00 AM EST eCW1 ([facility]) Amoxicillin 500 MG Oral Capsule 12/21/2020 12:00:00 AM EST eCW1 ([facility]) Levofloxacin 250 MG Oral Tablet 12/21/2020 12:00:00 AM EST eCW1 ([facility]) pantoprazole 40 MG Delayed Release Oral Tablet 12/21/2020 12:00:00 AM EST eCW1 ([facility]) Amoxicillin 500 MG Oral Capsule 12/21/2020 12:00:00 AM EST eCW1 ([facility]) Levofloxacin 250 MG Oral Tablet 12/21/2020 12:00:00 AM EST eCW1 ([facility]) pantoprazole 40 MG Delayed Release Oral Tablet 12/21/2020 12:00:00 AM EST eCW1 ([facility]) Augmentin 875-125 MG 12/04/2020 12:00:00 AM EST eCW1 ([facility]) Augmentin 875-125 MG 12/04/2020 12:00:00 AM EST eCW1 ([facility]) Augmentin 875-125 MG 12/04/2020 12:00:00 AM EST eCW1 ([facility])
[2021-09-05] MEDS ORDERED: PANT40TA29 PO (11:24)
[2021-09-05] MEDS ORDERED: NORT50CA PO (11:24)
[2021-09-05] MEDS ORDERED: CLAR10CA3 PO (11:24)
[2021-09-05] MEDS ORDERED: XARE20TA PO (11:24)
[2021-09-05] MEDS ORDERED: FERR325T3 PO (11:24)
[2021-09-05] MEDS ORDERED: MUPI2OI TOP (11:24)
[2021-09-05 12:10] LABS: BLOOD UREA NITROGEN 12 MG/DL (7-18); CALCIUM LEVEL 8.9 MG/DL (8.5-10.1); CARBON DIOXIDE LEVEL 26 MEQ/L (21-32); CHLORIDE LEVEL 110 MEQ/L (98-107); CK-MB VALUE MASS 1.6 NG/ML (<3.6); CPK CREATINE PHOSPHOKINASE 100 U/L (26-192); CREATININE FOR GFR 0.55 MG/DL (0.55-1.30); GLOMERULAR FILTRATION RATE > 60.0 (>51); GLUCOSE, FASTING 100 MG/DL (70-100); NT-PRO BNP 852 PG/ML (<125); POTASSIUM SERUM 4.8 MEQ/L (3.5-5.1); SODIUM LEVEL 140 MEQ/L (136-145); TROPONIN I 0.02 NG/ML (< 0.10)
[2021-09-05 12:38] LABS: MAGNESIUM LEVEL 2.2 MG/DL (1.8-2.4)
[2021-09-05] MEDS ORDERED: DIGOXIN INJ 0.5 MG/2 ML AMP (J1160) IV STA (13:33)
--- NOTE | 2021-09-05 13:38 | HPEPDOC ---
[facility] Medical History & Physical Date of Admission Sep 05, 2021 Date of Service: Sep 05, 2021 History and Physical CHIEF COMPLAINT: "My heart rate was high" HISTORY OF PRESENT ILLNESS: 56 year old female with a past medical history of 55-year-old female with a past medical history of atrial fibrillation, tachybradycardia syndrome, [id number] diabetes mellitus, peripheral neuropathy, as well as history mentioned below presented to the emergency department with chief complaints of having a elevated heart rate. Patient reports she has been experiencing palpitations for the last 2 to 3 days with associated nausea and diaphoresis. She denied having chest pain and shortness of breath. She cannot identify exacerbating or relieving factors. She endorses having a history of tachybradycardia syndrome and also being told in 2007 of having atrial fibrillation. She was taken off rate control medications due to her episodes of bradycardia and heart rate being controlled. Following an episode of GI bleed she was eventually deemed stable to resume systemic anticoagulation and has been tolerating it well. She denies any bright red blood in her stool or darkening of her stool. She denies abdominal pain, problems with urination and bowel movements. In the emergency room department EKG was consistent with atrial flutter (201). This was discussed with her primary analyst sales Dr. Hdez by the ED provider who recommended patient be admitted and started on digoxin. PAST MEDICAL HISTORY: Peripheral edema secondary to venous insufficiency NAFL (12/2005 CT scan) Hyperlipidemia Allergic rhinitis,, Cervical degenerative joint disease TIA (02/2014) Tubulovillous adenoma (2016 colonoscopy) Obstructive sleep apnea Lower GI bleed (tolerating systemic anticoagulation well now) Iron deficiency anemia and B12 deficiency Osteopenia PAST SURGICAL HISTORY: Ever-en-Y gastric bypass SOCIAL HISTORY: Reports living in a trailer with her and brother. She is a former smoker (quit in 2002), denies use of recreational drug and alcohol. FAMILY HISTORY: Father had angina as well as diabetes mellitus Mother had cardiomegaly and diabetes mellitus Sister had tumor of the appendix ALLERGIES: Please see below. REVIEW OF SYSTEMS: 10 point review of system was negative except for what is noted in the HPI HOME MEDICATIONS: Please see below. PHYSICAL EXAMINATION: VITAL SIGNS: Please see below General: Lying in bed, no acute distress Head/Neck/Throat: Trachea midline, mucous membranes moist Eyes: Sclera anicteric, PERRLA Thorax: Normal respiratory effort on room air, lungs clear to auscultation bilaterally, no wheezes/rales/rhonchi Cardiovascular: Tachycardia, heart rate 140, normal S1, S2; no S3, S4, rubs/gallops/murmurs Abdomen: Bowel sounds present, soft/nontender/nondistended Genitourinary: No CVA tenderness, no Morales in place Musculoskeletal: Moving all extremities, no edema Skin: Warm, dry Neurologic: AAOx3, speech fluent and goal-directed, no focal deficits, grossly intact LABORATORY DATA: See below. IMAGING: Chest x-ray showed no acute pathology MICROBIOLOGY: Please see below. ASSESSMENT/PLAN: #Atrial fibrillation with rapid ventricular response -Received 500 MCG of digoxin emergency room department but remains uncontrolled. Plan is to give 250 MCG x1 now, and if rate remains uncontrolled will give another 250 MCG in an hour. In the event, her rate is still not controlled we will have to explore other options with the cardiology team. This plan was disc ussed with Dr. Hdez -Systemic anticoagulation with Xarelto #Elevated TSH -Check free t4. #Hyperlipidemia -Continue with atorvastatin #Eyi-acmezfh-ixovuoeat diabetes mellitus -Hold oral diabetic medications. Insulin sliding scale, hypoglycemic protocol, and Accu-Cheks. #COPD -No signs of acute exacerbation. Continue with Combivent #Obstructive sleep apnea -Patient encouraged to use CPAP #GERD -Continue with pantoprazole #Iron deficiency anemia -Continue with ferrous sulfate #Vitamin D deficiency -Continue with vitamin D supplementation #DVT prophylaxis -Offered by Marcial. Update at approx 1820 - pt complained of chest pressure, nausea, and diaphoresis and reported she had similar symptoms prior to coming to the hospital as well. A stat ekg was done and it showed no acute st/t wave changes. A stat troponin was ordered and signed out to the night team. Her heart rate was 130. She received metoprolol 2.5mg, and her heart rate became to come down to 110-114, scheduled metoprolol was ordered. Vital Signs Vital Signs Date Time Temp Pulse Resp B/P (MAP) Pulse Ox O2 Delivery O2 Flow Rate FiO2 09/05/21 12:20 145 09/05/21 12:00 120/93 (102) 95 Room Air 09/05/21 10:28 97.4 18 Laboratory Data Labs 24H Laboratory Tests 2 09/05/21 11:00: Immature Granulocyte % (Auto) 0.3, Neutrophils (%) (Auto) 41.7, Lymphocytes (%) (Auto) 45.3H, Monocytes (%) (Auto) 8.4H, Eosinophils (%) (Auto) 2.9, Basophils (%) (Auto) 1.4H, Neutrophils # (Auto) 2.7, Lymphocytes # (Auto) 2.9, Monocytes # (Auto) 0.5, Eosinophils # (Auto) 0.2, Basophils # (Auto) 0.1, Nucleated Red Blood Cells % (auto) 0.0, Anion Gap 4L, Glomerular Filtration Rate > 60.0, Calcium Level 8.9, Magnesium Level 2.2, Total Creatine Kinase 100, Creatine Kinase MB 1.6, Creatine Kinase MB Relative Index 1.60, Troponin I 0.02, IF-Rym-X-Type Natriuretic Peptide 852H, Thyroid Stimulating Hormone (TSH) 4.350H CBC/BMP Laboratory Tests 09/05/21 11:00 Home Medications Scheduled Amoxicillin/Potassium Clav (Augmentin 875-125 Tablet) 1 Each Tablet, 1 TAB PO BID FOR 10 DAYS, BEGAN 08/31/21 IN THE EVENING Atorvastatin Calcium (Atorvastatin Calcium) 20 Mg Tablet, 20 MG PO QPM Biotin (Biotin) 5,000 Mcg Cap, 5,000 MCG PO QPM Calcium Carbonate/Vitamin D3 (Calcium 600 + Vit D 400 Softgl) 1 Each Capsule, 1 CAP PO QPM Cholecalciferol (Vitamin D3) (Vitamin D3) 125 Mcg Tablet, 125 MCG PO QPM Cyanocobalamin (Vitamin B-12) (Vitamin B-12) 500 Mcg Tab, 500 MCG PO QPM Ferrous Sulfate (Ferrous Sulfate) 325 Mg Tablet.dr, 325 MG PO QPM Loratadine (Claritin) 10 Mg Cap, 10 MG PO QPM Magnesium Oxide (Magnesium Oxide) 400 Mg Tablet, 400 MG PO QPM Meclizine HCl (Meclizine HCl) 25 Mg Tablet, 25 MG PO BID Metformin HCl (Metformin HCl) 500 Mg Tablet, 500 MG PO BID Multivitamin (Multivitamins) 1 Each Tablet, 2 TAB PO QPM Mupirocin (Mupirocin) 30 Gm Cream..g., 1 APPLIC TOP TID APPLIES TO ARM Nortriptyline HCl (Nortriptyline HCl) 50 Mg Capsule, 50 MG PO QPM Pearson-3 Fatty Acids/Fish Oil (Fish Oil 1,000 mg Capsule) 1 Each Capsule, 2,000 MG PO QPM Pantoprazole Sodium (Pantoprazole Sodium) 40 Mg Tablet.dr, 40 MG PO QPM Polyethylene Glycol 3350 (Miralax) 119 Gm Powder, 17 GM PO DAILY Rivaroxaban (Xarelto) 20 Mg Tablet, 20 MG PO QPM Sucralfate (Sucralfate) 1 Gm Tablet, 1 GM PO TID Scheduled PRN Cyclobenzaprine HCl (Cyclobenzaprine HCl) 5 Mg Tablet, 5 MG PO TID PRN for MUSCLE SPASMS Diclofenac Sodium (Diclofenac Sodium) 1.5% 150ML Drops, 40 DROP TOP QID PRN for PAIN APPLIES TO KNEES AND HIPS Fluticasone Propionate (Fluticasone Propionate) 16 Gm Shohola.susp, 2 SPRAY NARES DAILY PRN for CONGESTION Ipratropium/Albuterol Sulfate (Combivent Respimat 20-100 Mcg) 1 Aer Aer, 1 PUFF INH QID PRN for WHEEZING Magnesium Hydroxide (Milk of Magnesia) 400 Mg/5 Ml Oral.susp, 2,400 MG PO QHS PRN for CONSTIPATION Ondansetron (Ondansetron Odt) 4 Mg Tab.rapdis, 4 MG PO Q6H PRN for NAUSEA OR VOMITING Allergies Coded Allergies: No Known Allergies (Unverified , 02/20/21) A-FIB/CHADSVASC A-FIB History Current/History of A-Fib/PAF?: Yes Current PO Anticoag Therapy: Yes AYESHA CLAROS M.D. Sep 05, 2021 13:38
--- OUTSIDE RECORDS SUMMARY | 2021-09-05 13:52 | CCD ---
Author Author [facility] Organization [facility] Address Unknown Phone Unavailable Support Name Relationship Address Phone [employer] Next Of Kin [address] [place] [address] [facility] [place] [address] [facility] Next Of Kin [address] [place] [address] [facility] Next Of Kin [address] [place] [address] [place] [address] [facility] Next Of Kin [address] [place] [address] [facility] [place] [address] [facility] Next Of Kin [address] [place] [address] [place] [address] [facility]* Next Of Kin [address] [place] [address] [place] [address] [facility]* Next Of Kin [address] [place] [address] [facility] Next Of Kin [address] [place] [address] [facility]* Next Of Kin [address] [place] [address] [facility] Next Of Kin [address] [place] [address] [facility] Next Of Kin [address] [place] [address] EVANGELINA SRINIVASAN Next Of Kin [address] [place] [address] Evangelina Magdaleno ECON [address] [place] [address] JAYRICHIE MEDRANO ECON [address] [place] [address] [phone] Alvarez Evangelina ECON [address] [place] [address] Care Team Providers Care Machine Driller Name Role Phone Raulito, L Sera PA [...] Unavailable Raulito, L Sera PA Unavailable Unavailable Raultio, L Sera PA Unavailable Unavailable Raulito, L Sera PA Unavailable Unavailable Raulito, L Sera PA Unavailable Unavailable Raulito, L Sera PA Unavailable Unavailable Raulito, L Sera PA Unavailable Unavailable Raulito, L Sera PA Unavailable Unavailable Raulito, L Sera PA Unavailable Unavailable Charlebois, A Terrie RPA C [...] is protected by Article 27-F of the [facility] Public Health law. If you continue you may have access to information: Regarding HIV / AIDS; Provided by facilities licensed or operated by the [facility] Office of Mental Health; or Provided by the [facility] Office for People With Developmental Disabilities. If such information is present, then the following [facility] mandated warning applies: This information has been [...] law may result in a fine or fdc sentence or both. A general authorization for the release of medical or other information is NOT sufficient authorization for further disc losure. Family History Family Member Name Family Member Gender Family Member Status Date o f Status Description Data Source(s) Unknown Condition [facility] Unknown Condition [facility] Unknown Condition [facility] Unknown Condition [facility] Encounters Encounter Providers Location Date Indications Data Source(s ) [place] [address] [facility] [address] 08/31/2021 12:00:00 AM EDT eCW1 ([facility]) Unknown [address] [facility] [place] [address] 08/10/2021 12:00:00 AM EDT eCW1 ([facility]) Outpatient [address] [facility] [place] [address] 07/10/2021 12:00:00 AM EDT eCW1 ([facility]) Unknown [address] [facility] [place] [address] 06/27/2021 12:00:00 AM EDT eCW1 ([facility]) Unknown [address] [facility] [place] [address] 06/27/2021 12:00:00 AM EDT eCW1 ([facility]) Unknown [address] [facility] [place] [address] 06/27/2021 12:00:00 AM EDT eCW1 ([facility]) Outpatient [address] [facility] [place] [address] 06/19/2021 12:00:00 AM EDT eCW1 ([facility]) Unknown [address] [facility] [place] [address] 06/19/2021 12:00:00 AM EDT eCW1 ([facility]) Unknown [address] [facility] [place] [address] 06/19/2021 12:00:00 AM EDT [facility] [place] [address] [facility] [place] [address] 06/19/2021 12:00:00 AM EDT [facility] [place] [address] [facility] [address] 06/19/2021 12:00:00 AM EDT [facility]CW1 [facility]) [place] [address] [facility] [address] 05/24/2021 12:00:00 AM EDT eCW1 ([facility]) [place] [address] [facility] [address] 05/24/2021 12:00:00 AM EDT eCW1 ([facility]) [place] [address] [facility] [address] 03/19/2021 12:00:00 AM EDT eCW1 ([facility]) Outpatient Attender: Terrie Jade/Lita/Daniel guevara/John 03/13/2021 02:00:00 PM EDT MEDENT ([facility]) [place] [address] [facility] [address] 02/13/2021 12:00:00 AM EDT eCW1 ([facility]) [place] [address] [facility] [address] 02/13/2021 12:00:00 AM EDT [facility]CW1 [facility]) [place] [address] [facility] [address] 02/10/2021 12:00:00 AM EDT eCW1 ([facility]) [place] [address] [facility] [address] 01/29/2021 12:00:00 AM EST eCW1 ([facility]) [place] [address] [facility] [address] 01/17/2021 12:00:00 AM EST eCW1 ([facility]) [place] [address] [facility] [address] 01/16/2021 12:00:00 AM EST eCW1 ([facility]) [place] [address] [facility] [place] [address] 01/15/2021 12:00:00 AM EST eCW1 ([facility]) [place] [address] [facility] [address] 01/15/2021 12:00:00 AM EST eCW1 ([facility]) Outpatient Attender: Terrie Jade/Lita/Daniel guevara/John 01/08/2021 10:15:00 AM EST MEDENT ([facility] Emiliano cartagena ) [place] [address] [facility] [address] 01/08/2021 12:00:00 AM EST [facility]CW1 ([facility]) [place] [address] [facility] [place] [address] 12/20/2020 12:00:00 AM EST [facility]CW1 [facility] [place] [address] [facility] [address] 12/20/2020 12:00:00 AM EST eCW1 ([facility]) [place] [address] [facility] [address] 12/19/2020 12:00:00 AM EST [facility]CW1 ([facility]) [place] [address] [facility] [address] 12/19/2020 12:00:00 AM EST eCW1 ([facility]) [place] [address] [facility] [address] 12/15/2020 12:00:00 AM EST eCW1 ([facility] [place] [address] [facility] [address] 12/13/2020 12:00:00 AM EST eCW1 ([facility]) [place] [address] [facility] [address] 12/13/2020 12:00:00 AM EST eCW1 ([facility]) [place] [address] [facility] [address] 12/13/2020 12:00:00 AM EST eCW1 ([facility]) [place] [address] [facility] [address] 12/04/2020 12:00:00 AM EST eCW1 ([facility]) [place] [address] [facility] [address] 12/04/2020 12:00:00 AM EST eCW1 ([facility]) [place] [address] [facility] [address] 12/04/2020 12:00:00 AM EST eCW1 ([facility]) [place] [address] [facility] [address] 11/30/2020 12:00:00 AM EST [facility]CW1 ([facility]) [place] [address] [facility] [address] 10/05/2020 12:00:00 AM EST eCW1 ([facility]) [place] [address] [facility] [address] 09/19/2020 12:00:00 AM EDT eCW1 ([facility]) [place] [address] [facility] [address] 09/05/2020 12:00:00 AM EDT eCW1 ([facility]) Outpatient Attender: Mauricio Jade/Lita/Jayant/Rein ean 07/19/2020 09:50:00 AM EDT MED[facility] ([facility] [place] [address] [facility] [address] 07/18/2020 12:00:00 AM EDT eCW1 [facility]) Outpatient Attender: Sera WALDROP Main Office 07/12/2020 09:45:0 0 AM EDT MEDENT ([facility]) Immunizations Vaccine Date Status Description Data Source(s) COVID-19 dose #2 given elsewhere Unspecified 02/22/2021 05:5 6:00 PM EDT completed eCW1 ([facility]) COVID-19 dose #2 given elsewhere Unspecified 02/22/2021 05:5 6:00 PM EDT completed eCW1 ([facility]) COVID-19 dose #2 given elsewhere Unspecified 02/22/2021 05:5 6:00 PM EDT completed eCW1 ([facility]) COVID-19 dose #2 given elsewhere Unspecified 02/22/2021 05:5 6:00 PM EDT completed eCW1 ([facility]) COVID-19 dose #2 given elsewhere Unspecified 02/22/2021 05:5 6:00 PM EDT completed eCW1 ([facility]) COVID-19 dose #2 given elsewhere Unspecified 02/22/2021 05:5 6:00 PM EDT completed eCW1 ([facility]) COVID-19 dose #2 given elsewhere Unspecified 02/22/2021 05:5 6:00 PM EDT completed eCW1 ([facility]) COVID-19 dose #2 given elsewhere Unspecified 02/22/2021 05:5 6:00 PM EDT completed eCW1 ([facility]) COVID-19 dose #2 given elsewhere Unspecified 02/22/2021 05:5 6:00 PM EDT completed eCW1 ([facility]) COVID-19 dose #2 given elsewhere Unspecified 02/22/2021 05:5 6:00 PM EDT completed eCW1 ([facility]) COVID-19 dose #2 given elsewhere Unspecified 02/22/2021 05:5 6:00 PM EDT completed eCW1 ([facility]) COVID-19 dose #2 given elsewhere Unspecified 02/22/2021 05:5 6:00 PM EDT completed eCW1 ([facility]) COVID-19 dose #2 given elsewhere Unspecified 02/22/2021 05:5 6:00 PM EDT completed eCW1 ([facility]) COVID-19 dose #2 given elsewhere Unspecified 02/22/2021 05:5 6:00 PM EDT completed eCW1 ([facility]) COVID-19 dose #2 given elsewhere Unspecified 02/22/2021 05:5 6:00 PM EDT completed eCW1 ([facility]) COVID-19 VACCINE [place]yer 02/22/2021 12:00:00 AM EDT completed [facility] Vaccine Series Complete: YESThis Data wa s Submitted to [facility] Via [facility]. influenza, recombinant, quadrIvalent,injectable, prese rvative free 09/19/2020 05:39:00 PM EDT completed eCW1 ([facility]) influenza, recombinant, quadrIvalent,injectable, prese rvative free 09/19/2020 05:39:00 PM EDT completed eCW1 ([facility]) influenza, recombinant, quadrIvalent,injectable, prese rvative free 09/19/2020 05:39:00 PM EDT completed eCW1 ([facility]) influenza, recombinant, quadrIvalent,injectable, prese rvative free 09/19/2020 05:39:00 PM EDT completed eCW1 ([facility]) influenza, recombinant, quadrIvalent,injectable, prese rvative free 09/19/2020 05:39:00 PM EDT completed eCW1 ([facility]) influenza, recombinant, quadrIvalent,injectable, prese rvative free 09/19/2020 05:39:00 PM EDT completed eCW1 ([facility]) influenza, recombinant, quadrIvalent,injectable, prese rvative free 09/19/2020 05:39:00 PM EDT completed eCW1 ([facility]) influenza, recombinant, quadrIvalent,injectable, prese rvative free 09/19/2020 05:39:00 PM EDT completed eCW1 ([facility]) influenza, recombinant, quadrIvalent,injectable, prese rvative free 09/19/2020 05:39:00 PM EDT completed eCW1 ([facility]) influenza, recombinant, quadrIvalent,injectable, prese rvative free 09/19/2020 05:39:00 PM EDT completed eCW1 ([facility]) influenza, recombinant, quadrIvalent,injectable, prese rvative free 09/19/2020 05:39:00 PM EDT completed eCW1 ([facility]) influenza, recombinant, quadrIvalent,injectable, prese rvative free 09/19/2020 05:39:00 PM EDT completed eCW1 ([facility]) influenza, recombinant, quadrIvalent,injectable, prese rvative free 09/19/2020 05:39:00 PM EDT completed eCW1 ([facility]) influenza, recombinant, quadrIvalent,injectable, prese rvative free 09/19/2020 05:39:00 PM EDT completed eCW1 ([facility]) influenza, recombinant, quadrIvalent,injectable, prese rvative free 09/19/2020 05:39:00 PM EDT completed eCW1 ([facility]) influenza, recombinant, quadrIvalent,injectable, prese rvative free 09/19/2020 05:39:00 PM EDT completed eCW1 ([facility]) influenza, recombinant, quadrIvalent,injectable, prese rvative free 09/19/2020 05:39:00 PM EDT completed eCW1 ([facility]) influenza, recombinant, quadrIvalent,injectable, prese rvative free 09/19/2020 05:39:00 PM EDT completed eCW1 ([facility]) influenza, recombinant, quadrIvalent,injectable, prese rvative free 09/19/2020 05:39:00 PM EDT completed eCW1 ([facility]) influenza, recombinant, quadrIvalent,injectable, prese rvative free 09/19/2020 05:39:00 PM EDT completed eCW1 ([facility]) influenza, recombinant, quadrIvalent,injectable, prese rvative free 09/19/2020 05:39:00 PM EDT completed eCW1 ([facility]) influenza, recombinant, quadrIvalent,injectable, prese rvative free 09/19/2020 05:39:00 PM EDT completed eCW1 ([facility]) influenza, recombinant, quadrIvalent,injectable, prese rvative free 09/19/2020 05:39:00 PM EDT completed eCW1 ([facility]) influenza, recombinant, quadrIvalent,injectable, prese rvative free 09/19/2020 05:39:00 PM EDT completed eCW1 ([facility]) influenza, recombinant, quadrIvalent,injectable, prese rvative free 09/19/2020 05:39:00 PM EDT completed eCW1 ([facility]) influenza, recombinant, quadrIvalent,injectable, prese rvative free 09/19/2020 05:39:00 PM EDT completed eCW1 ([facility]) influenza, recombinant, quadrIvalent,injectable, prese rvative free 09/19/2020 05:39:00 PM EDT completed eCW1 ([facility]) influenza, recombinant, quadrIvalent,injectable, prese rvative free 09/19/2020 05:39:00 PM EDT completed eCW1 ([facility]) influenza, recombinant, quadrIvalent,injectable, prese rvative free 09/19/2020 05:39:00 PM EDT completed eCW1 ([facility]) influenza, recombinant, quadrIvalent,injectable, prese rvative free 09/19/2020 05:39:00 PM EDT completed eCW1 ([facility]) influenza, recombinant, quadrIvalent,injectable, prese rvative free 09/19/2020 05:39:00 PM EDT completed eCW1 ([facility]) influenza, recombinant, quadrIvalent,injectable, prese rvative free 09/19/2020 05:39:00 PM EDT completed eCW1 ([facility]) influenza, recombinant, quadrIvalent,injectable, prese rvative free 09/19/2020 05:39:00 PM EDT completed eCW1 ([facility]) influenza, recombinant, quadrIvalent,injectable, prese rvative free 09/19/2020 05:39:00 PM EDT completed eCW1 ([facility]) influenza, recombinant, quadrIvalent,injectable, prese rvative free 09/19/2020 05:39:00 PM EDT completed eCW1 ([facility]) influenza, recombinant, quadrIvalent,injectable, prese rvative free 09/19/2020 05:39:00 PM EDT completed eCW1 ([facility]) influenza, recombinant, quadrIvalent,injectable, prese rvative free 09/19/2020 05:39:00 PM EDT completed eCW1 ([facility]) influenza, recombinant, quadrIvalent,injectable, prese rvative free 09/19/2020 05:39:00 PM EDT completed eCW1 ([facility]) influenza, recombinant, quadrIvalent,injectable, prese rvative free 09/19/2020 05:39:00 PM EDT completed eCW1 ([facility]) Medications Medication Brand Name Start Date Product Form Dose Route Admi nistrative Instructions Pharmacy Instructions Status Indications Reaction Description Data Source(s) Amoxicillin 875 MG / Clavulanate 125 MG Oral Tablet Amoxicillin-Pot Clavulanate 875-125 MG Amoxicillin-Pot Clavulanate 875-125 MG 08/31/2021 12:00:00 AM ED T 1.0 {tablet} active Amoxicillin-Pot Cla vulanate 875-125 MG eCW1 ([facility]) Carpal Tunnel Wrist Stabilizer - Carpal Tunnel Wrist Stabili zer - 06/19/2021 12:00:00 AM EDT active Carpal T unnel Wrist Stabilizer - eCW1 ([facility]) Polyethylene Glycol - Polyethylene Glycol - 06/19/2021 12:00:00 AM EDT active Polyethylene Glycol - eCW1 ( [facility]) Polyethylene Glycol - Polyethylene Glycol - 06/19/2021 12:00:00 AM EDT active Polyethylene Glycol - eCW1 ( [facility]) Carpal Tunnel Wrist Stabilizer - Carpal Tunnel Wrist Stabili zer - 06/19/2021 12:00:00 AM EDT active Carpal T unnel Wrist Stabilizer - eCW1 ([facility]) Carpal Tunnel Wrist Stabilizer - Carpal Tunnel Wrist Stabili zer - 06/19/2021 12:00:00 AM EDT active Carpal T unnel Wrist Stabilizer - eCW1 ([facility]) Carpal Tunnel Wrist Stabilizer - Carpal Tunnel Wrist Stabili zer - 06/19/2021 12:00:00 AM EDT active Carpal T unnel Wrist Stabilizer - eCW1 ([facility]) Mupirocin 20 MG/ML Topical Cream Mupirocin Calcium 2 % Mupir ocin Calcium 2 % 06/19/2021 12:00:00 AM EDT 1.0 {application} act luz Mupirocin Calcium 2 % eCW1 ([facility]) Carpal Tunnel Wrist Stabilizer - Carpal Tunnel Wrist Stabili zer - 06/19/2021 12:00:00 AM EDT active Carpal T unnel Wrist Stabilizer - eCW1 ([facility]) Polyethylene Glycol - Polyethylene Glycol - 06/19/2021 12:00:00 AM EDT active Polyethylene Glycol - eCW1 ( [facility]) Mupirocin 20 MG/ML Topical Cream Mupirocin Calcium 2 % Mupir ocin Calcium 2 % 06/19/2021 12:00:00 AM EDT 1.0 {application} act luz Mupirocin Calcium 2 % eCW1 ([facility]) Mupirocin 20 MG/ML Topical Cream Mupirocin Calcium 2 % Mupir ocin Calcium 2 % 06/19/2021 12:00:00 AM EDT 1.0 {application} act luz Mupirocin Calcium 2 % eCW1 ([facility]) Nortriptyline 25 MG Oral Capsule Nortriptyline HCl 25 MG Nortriptyline HCl 25 MG 06/19/2021 12:00:00 AM EDT 1.0 {capsule} acti ve Nortriptyline HCl 25 MG eCW1 ([facility]) Mupirocin 20 MG/ML Topical Cream Mupirocin Calcium 2 % Mupir ocin Calcium 2 % 06/19/2021 12:00:00 AM EDT 1.0 {application} act luz Mupirocin Calcium 2 % eCW1 ([facility]) Mupirocin 20 MG/ML Topical Cream Mupirocin Calcium 2 % Mupir ocin Calcium 2 % 06/19/2021 12:00:00 AM EDT 1.0 {application} act luz Mupirocin Calcium 2 % eCW1 ([facility]) Carpal Tunnel Wrist Stabilizer - Carpal Tunnel Wrist Stabili zer - 06/19/2021 12:00:00 AM EDT active Carpal T unnel Wrist Stabilizer - eCW1 ([facility]) Polyethylene Glycol - Polyethylene Glycol - 06/19/2021 12:00:00 AM EDT active Polyethylene Glycol - eCW1 ( [facility]) Polyethylene Glycol - Polyethylene Glycol - 06/19/2021 12:00:00 AM EDT active Polyethylene Glycol - eCW1 ( [facility]) Nortriptyline 25 MG Oral Capsule Nortriptyline HCl 25 MG Nortriptyline HCl 25 MG 06/19/2021 12:00:00 AM EDT 1.0 {capsule} acti ve Nortriptyline HCl 25 MG eCW1 ([facility]) Polyethylene Glycol - Polyethylene Glycol - 06/19/2021 12:00:00 AM EDT active Polyethylene Glycol - eCW1 ( [facility]) Mupirocin 20 MG/ML Topical Cream Mupirocin Calcium 2 % Mupir ocin Calcium 2 % 06/19/2021 12:00:00 AM EDT 1.0 {application} act luz Mupirocin Calcium 2 % eCW1 ([facility]) Carpal Tunnel Wrist Stabilizer - Carpal Tunnel Wrist Stabili zer - 06/19/2021 12:00:00 AM EDT active Carpal T unnel Wrist Stabilizer - eCW1 ([facility]) Mupirocin 20 MG/ML Topical Cream Mupirocin Calcium 2 % Mupir ocin Calcium 2 % 06/19/2021 12:00:00 AM EDT 1.0 {application} act luz Mupirocin Calcium 2 % eCW1 ([facility]) Carpal Tunnel Wrist Stabilizer - Carpal Tunnel Wrist Stabili zer - 06/19/2021 12:00:00 AM EDT active Carpal T unnel Wrist Stabilizer - eCW1 ([facility]) Mupirocin 20 MG/ML Topical Cream Mupirocin Calcium 2 % Mupir ocin Calcium 2 % 06/19/2021 12:00:00 AM EDT 1.0 {application} act luz Mupirocin Calcium 2 % eCW1 ([facility]) Nortriptyline 25 MG Oral Capsule Nortriptyline HCl 25 MG Nortriptyline HCl 25 MG 06/19/2021 12:00:00 AM EDT 1.0 {capsule} acti ve Nortriptyline HCl 25 MG eCW1 ([facility]) Polyethylene Glycol - Polyethylene Glycol - 06/19/2021 12:00:00 AM EDT active Polyethylene Glycol - eCW1 ( [facility]) Polyethylene Glycol - Polyethylene Glycol - 06/19/2021 12:00:00 AM EDT active Polyethylene Glycol - eCW1 ( [facility]) Nortriptyline 50 MG Oral Capsule Nortriptyline HCl 50 MG Nortriptyline HCl 50 MG 06/19/2021 12:00:00 AM EDT 1.0 {capsule} acti ve Nortriptyline HCl 50 MG eCW1 ([facility]) Nortriptyline 25 MG Oral Capsule Nortriptyline HCl 25 MG Nortriptyline HCl 25 MG 06/19/2021 12:00:00 AM EDT 1.0 {capsule} acti ve Nortriptyline HCl 25 MG eCW1 ([facility]) Carpal Tunnel Wrist Stabilizer - Carpal Tunnel Wrist Stabili zer - 06/19/2021 12:00:00 AM EDT active Carpal T unnel Wrist Stabilizer - eCW1 ([facility]) Mupirocin 20 MG/ML Topical Cream Mupirocin Calcium 2 % Mupir ocin Calcium 2 % 06/19/2021 12:00:00 AM EDT 1.0 {application} act luz Mupirocin Calcium 2 % eCW1 ([facility]) Polyethylene Glycol - Polyethylene Glycol - 06/19/2021 12:00:00 AM EDT active Polyethylene Glycol - eCW1 ( [facility]) Carpal Tunnel Wrist Stabilizer - Carpal Tunnel Wrist Stabili zer - 06/19/2021 12:00:00 AM EDT active Carpal T unnel Wrist Stabilizer - eCW1 ([facility]) Nortriptyline 25 MG Oral Capsule Nortriptyline HCl 25 MG Nortriptyline HCl 25 MG 06/19/2021 12:00:00 AM EDT 1.0 {capsule} acti ve Nortriptyline HCl 25 MG eCW1 ([facility]) Nortriptyline 50 MG Oral Capsule Nortriptyline HCl 50 MG Nortriptyline HCl 50 MG 06/19/2021 12:00:00 AM EDT 1.0 {capsule} acti ve Nortriptyline HCl 50 MG eCW1 ([facility]) Nortriptyline 25 MG Oral Capsule Nortriptyline HCl 25 MG Nortriptyline HCl 25 MG 06/19/2021 12:00:00 AM EDT 1.0 {capsule} acti ve Nortriptyline HCl 25 MG eCW1 ([facility]) Polyethylene Glycol - Polyethylene Glycol - 06/19/2021 12:00:00 AM EDT active Polyethylene Glycol - [facility]CW[facility] [facility]) Carpal Tunnel Wrist Stabilizer - Carpal Tunnel Wrist Stabili zer - 06/19/2021 12:00:00 AM EDT active Carpal T unnel Wrist Stabilizer - eCW1 ([facility]) Polyethylene Glycol - Polyethylene Glycol - 06/19/2021 12:00:00 AM EDT active Polyethylene Glycol - eCW1 ( [facility]) Mupirocin 20 MG/ML Topical Cream Mupirocin Calcium 2 % Mupir ocin Calcium 2 % 06/19/2021 12:00:00 AM EDT 1.0 {application} act luz Mupirocin Calcium 2 % eCW1 ([facility]) Polyethylene Glycol - Polyethylene Glycol - 06/19/2021 12:00:00 AM EDT active Polyethylene Glycol - eCW1 ( [facility]) Nortriptyline 25 MG Oral Capsule Nortriptyline HCl 25 MG Nortriptyline HCl 25 MG 06/19/2021 12:00:00 AM EDT 1.0 {capsule} acti ve Nortriptyline HCl 25 MG eCW1 ([facility]) Nortriptyline 25 MG Oral Capsule Nortriptyline HCl 25 MG Nortriptyline HCl 25 MG 06/19/2021 12:00:00 AM EDT 1.0 {capsule} acti ve Nortriptyline HCl 25 MG eCW1 ([facility]) Mupirocin 20 MG/ML Topical Cream Mupirocin Calcium 2 % Mupir ocin Calcium 2 % 06/19/2021 12:00:00 AM EDT 1.0 {application} act luz Mupirocin Calcium 2 % eCW1 ([facility]) Nortriptyline 25 MG Oral Capsule Nortriptyline HCl 25 MG Nortriptyline HCl 25 MG 06/19/2021 12:00:00 AM EDT 1.0 {capsule} acti ve Nortriptyline HCl 25 MG eCW1 ([facility]) Carpal Tunnel Wrist Stabilizer - Carpal Tunnel Wrist Stabili zer - 06/19/2021 12:00:00 AM EDT active Carpal T unnel Wrist Stabilizer - eCW1 ([facility]) Mupirocin 20 MG/ML Topical Cream Mupirocin Calcium 2 % Mupir ocin Calcium 2 % 06/19/2021 12:00:00 AM EDT 1.0 {application} act luz Mupirocin Calcium 2 % eCW1 ([facility]) Meclizine Hydrochloride 25 MG Oral Tablet Meclizine HC l 25 MG Meclizine HCl 25 MG 01/16/2021 12:00:00 AM EST 1.0 {tablet_as_needed} active Meclizine HCl 25 MG eCW1 ([facility]) Meclizine Hydrochloride 25 MG Oral Tablet Meclizine HC l 25 MG Meclizine HCl 25 MG 01/16/2021 12:00:00 AM EST 1.0 {tablet_as_needed} active Meclizine HCl 25 MG eCW1 ([facility]) Meclizine Hydrochloride 25 MG Oral Tablet Meclizine HC l 25 MG Meclizine HCl 25 MG 01/16/2021 12:00:00 AM EST 1.0 {tablet_as_needed} active Meclizine HCl 25 MG eCW1 ([facility]) Meclizine Hydrochloride 25 MG Oral Tablet Meclizine HC l 25 MG Meclizine HCl 25 MG 01/16/2021 12:00:00 AM EST 1.0 {tablet_as_needed} active Meclizine HCl 25 MG eCW1 ([facility]) Meclizine Hydrochloride 25 MG Oral Tablet Meclizine HC l 25 MG Meclizine HCl 25 MG 01/16/2021 12:00:00 AM EST 1.0 {tablet_as_needed} active Meclizine HCl 25 MG eCW1 ([facility]) Meclizine Hydrochloride 25 MG Oral Tablet Meclizine HC l 25 MG Meclizine HCl 25 MG 01/16/2021 12:00:00 AM EST 1.0 {tablet_as_needed} active Meclizine HCl 25 MG eCW1 ([facility]) Meclizine Hydrochloride 25 MG Oral Tablet Meclizine HC l 25 MG Meclizine HCl 25 MG 01/16/2021 12:00:00 AM EST 1.0 {tablet_as_needed} active Meclizine HCl 25 MG eCW1 ([facility]) Meclizine Hydrochloride 25 MG Oral Tablet Meclizine HC l 25 MG Meclizine HCl 25 MG 01/16/2021 12:00:00 AM EST 1.0 {tablet_as_needed} active Meclizine HCl 25 MG eCW1 ([facility]) tizanidine 4 MG Oral Tablet Tizanidine HCl 4 MG Tizanidine H Cl 4 MG 01/08/2021 12:00:00 AM EST 1.0 {tablet_as_needed} active Tizanidine HCl 4 MG eCW1 ([facility]) tizanidine 4 MG Oral Tablet Tizanidine HCl 4 MG Tizanidine H Cl 4 MG 01/08/2021 12:00:00 AM EST 1.0 {tablet_as_needed} active Tizanidine HCl 4 MG eCW1 ([facility]) tizanidine 4 MG Oral Tablet Tizanidine HCl 4 MG Tizanidine H Cl 4 MG 01/08/2021 12:00:00 AM EST 1.0 {tablet_as_needed} active Tizanidine HCl 4 MG eCW1 ([facility]) tizanidine 4 MG Oral Tablet Tizanidine HCl 4 MG Tizanidine H Cl 4 MG 01/08/2021 12:00:00 AM EST 1.0 {tablet_as_needed} active Tizanidine HCl 4 MG eCW1 ([facility]) tizanidine 4 MG Oral Tablet Tizanidine HCl 4 MG Tizanidine H Cl 4 MG 01/08/2021 12:00:00 AM EST 1.0 {tablet_as_needed} active Tizanidine HCl 4 MG eCW1 ([facility]) tizanidine 4 MG Oral Tablet Tizanidine HCl 4 MG Tizanidine H Cl 4 MG 01/08/2021 12:00:00 AM EST 1.0 {tablet_as_needed} active Tizanidine HCl 4 MG eCW1 ([facility]) tizanidine 4 MG Oral Tablet Tizanidine HCl 4 MG Tizanidine H Cl 4 MG 01/08/2021 12:00:00 AM EST 1.0 {tablet_as_needed} active Tizanidine HCl 4 MG eCW1 ([facility]) tizanidine 4 MG Oral Tablet Tizanidine HCl 4 MG Tizanidine H Cl 4 MG 01/08/2021 12:00:00 AM EST 1.0 {tablet_as_needed} active Tizanidine HCl 4 MG eCW1 ([facility]) POLYETHYLENE GLYCOL 3350 142 MG/ML Oral Solution [Miralax] M iralax 01/08/2021 12:00:00 AM EST completed MEDENT ([facility], ) Magnesium Hydroxide 80 MG/ML Oral Suspension Milk Of Magnesi a 01/08/2021 12:00:00 AM EST ORAL completed MEDENT ([facility], ) tizanidine 4 MG Oral Tablet Tizanidine HCl 4 MG Tizanidine H Cl 4 MG 01/08/2021 12:00:00 AM EST 1.0 {tablet_as_needed} active Tizanidine HCl 4 MG eCW1 ([facility]) tizanidine 4 MG Oral Tablet Tizanidine HCl 4 MG Tizanidine H Cl 4 MG 01/08/2021 12:00:00 AM EST 1.0 {tablet_as_needed} active Tizanidine HCl 4 MG eCW1 ([facility]) Amoxicillin 500 MG Oral Capsule Amoxicillin 500 MG 12/21/2020 12:00 :00 AM EST active Amoxicillin 500 MG eCW1 ([facility]) pantoprazole 40 MG Delayed Release Oral Tablet Pantopr azole Sodium 40 MG Pantoprazole Sodium 40 MG 12/21/2020 12:00:00 AM EST 1.0 {tablet} active Pantoprazole Sodium 40 MG eCW1 ( [facility]) pantoprazole 40 MG Delayed Release Oral Tablet Pantopr azole Sodium 40 MG Pantoprazole Sodium 40 MG 12/21/2020 12:00:00 AM EST 1.0 {tablet} active Pantoprazole Sodium 40 MG eCW1 ( [facility]) Amoxicillin 500 MG Oral Capsule Amoxicillin 500 MG 12/21/2020 12:00 :00 AM EST active Amoxicillin 500 MG eCW1 ([facility]) pantoprazole 40 MG Delayed Release Oral Tablet Pantopr azole Sodium 40 MG Pantoprazole Sodium 40 MG 12/21/2020 12:00:00 AM EST 1.0 {tablet} active Pantoprazole Sodium 40 MG eCW1 ( [facility]) Levofloxacin 250 MG Oral Tablet Levofloxacin 250 MG 12/21/2020 1 2:00:00 AM EST 1.0 {tablet} active Levofloxaci n 250 MG eCW1 ([facility]) Levofloxacin 250 MG Oral Tablet Levofloxacin 250 MG 12/21/2020 1 2:00:00 AM EST 1.0 {tablet} active Levofloxaci n 250 MG eCW1 ([facility]) pantoprazole 40 MG Delayed Release Oral Tablet Pantopr azole Sodium 40 MG Pantoprazole Sodium 40 MG 12/21/2020 12:00:00 AM EST 1.0 {tablet} active Pantoprazole Sodium 40 MG eCW1 ( [facility]) Amoxicillin 500 MG Oral Capsule Amoxicillin 500 MG 12/21/2020 12:00 :00 AM EST active Amoxicillin 500 MG eCW1 ([facility]) Levofloxacin 250 MG Oral Tablet Levofloxacin 250 MG 12/21/2020 1 2:00:00 AM EST 1.0 {tablet} active Levofloxaci n 250 MG eCW1 ([facility]) Amoxicillin 500 MG Oral Capsule Amoxicillin 500 MG 12/21/2020 12:00 :00 AM EST active Amoxicillin 500 MG eCW1 ([facility]) Levofloxacin 250 MG Oral Tablet Levofloxacin 250 MG 12/21/2020 1 2:00:00 AM EST 1.0 {tablet} active Levofloxaci n 250 MG eCW1 ([facility]) Augmentin 875-125 MG UNK 12/04/2020 12:00:00 AM EST 1.0 {tablet } active Augmentin 875-125 MG eCW1 ([facility]) Augmentin 875-125 MG UNK 12/04/2020 12:00:00 AM EST 1.0 {tablet } active Augmentin 875-125 MG eCW1 ([facility]) Augmentin 875-125 MG UNK 12/04/2020 12:00:00 AM EST 1.0 {tablet } active Augmentin 875-125 MG eCW1 ([facility]) Augmentin 875-125 MG UNK 12/04/2020 12:00:00 AM EST 1.0 {tablet } active Augmentin 875-125 MG eCW1 ([facility]) Augmentin 875-125 MG UNK 12/04/2020 12:00:00 AM EST 1.0 {tablet } active Augmentin 875-125 MG eCW1 ([facility]) Sucralfate 1000 MG Oral Tablet Sucralfate 07/19/2020 12:00:00 AM EDT ORAL active MEDENT ([facility], ) Insurance Providers Payer name Policy type / Coverage type Policy ID Covered constitution party ID Covered constitution party's relationship to moran Policy Moran Plan Information [employer]BS [employer] P[employer] Medigap Part B [id number] [id number] Self V [id number] [employer] Medigap Part B [id number] 2.0.1.259900.3.227.99.572.42461.0 Self V [id number] [employer] P[employer] Medigap Part B [id number] 2.0.1.667853.3.227.99.572.94707.0 Self V [id number] [employer] Medigap Part B [id number] 2.0.1.169642.3.227.99.572.19054.0 Self V [id number] [employer] Medigap Part B [id number] 2..1.002071.3.227.99.572.17968.0 Self V [id number] [employer] Medigap Part B [id number] 2..1.426704.3.227.99.572.66044.0 Self V [id number] [employer] Medigap Part B [id number] 2..1.831228.3.227.99.572.22746.0 Self V [id number] [employer] Medigap Part B [id number] 2.0.1.207423.3.227.99.572.84193.0 Self V [id number] [employer] Medigap Part B [id number] 2..1.285072.3.227.99.572.95027.0 Self V [id number] [employer] Medigap Part B [id number] 2.0.1.569456.3.227.99.572.45377.0 Self V [id number] [employer] ([place]) Workers Compensation [id number] 2.16.840.1.536826.3.227.99.991.253836.0 Self [id number] [employer] [place] Workers Compensation [id number] 2.16.840.1.605884.3.227.99.991.642625.0 Self [id number] [employer] [place] Workers Compensation [id number] 2.16.840.1.165811.3.227.99.991.630428.0 Self [id number] [employer] [place] Workers Compensation [id number] 2.16.840.1.732273.3.227.99.991.840750.0 Self [id number] [employer] [place] Workers Compensation [id number] 2.16.840.1.249087.3.227.99.991.085824.0 Self [id number] [employer] [place] Workers Compensation [id number] 2.16.840.1.850377.3.227.99.991.471471.0 Self [id number] [employer] [place] Workers Compensation [id number] 2.16.840.1.894027.3.227.99.991.844917.0 Self [id number] [employer] [place] Workers Compensation [id number] 2.16.840.1.243491.3.227.99.991.958381.0 Self [id number] [employer] [place] Workers Compensation [id number] 2.16.840.1.542995.3.227.99.991.608368.0 Self [id number] [employer] [place] Workers Compensation [id number] 2.16.840.1.444936.3.227.99.991.249163.0 Self [id number] PMA WC W [id number] Self [id number] [employer] Workers Compensation [id number] 2.16.840.1.394065.3.227.99.991.723494.0 Self [id number] [employer] [place] Workers Compensation [id number] 2.0.1.654453.3.227.99.991.964356.0 Self [id number] [employer] [place] Workers Compensation [id number] 2.0.1.232586.3.227.99.991.006118.0 Self [id number] [employer] [place] Workers Compensation [id number] 2.0.1.901516.3.227.99.991.331939.0 Self [id number] [employer] Commercial [id number] 2.0.1.415292.3.227.99.572.96903.0 Self V [id number] [employer] U/[employer] Medigap Part B [id number] 2..1.639506.3.227.99.572.83006.0 Self V [id number] [employer]BS [employer] Commercial [id number] 2..1.098359.3.227.99.572.31782.0 Self V [id number] [employer] U/[employer] Medigap Part B [id number] 2..1.345997.3.227.99.572.65506.0 Self V [id number] [employer] Commercial [id number] 2.0.1.578568.3.227.99.572.17643.0 Self V [id number] [employer] Commercial [id number] 2..1.247977.3.227.99.572.22165.0 Self V [id number] [employer] Commercial [id number] 2.0.1.770977.3.227.99.572.34942.0 Self V [id number] [employer] Commercial [id number] 2..1.624999.3.227.99.572.21107.0 Self V [id number] [employer] Commercial [id number] 2.0.1.674880.3.227.99.572.51475.0 Self V [id number] [employer] U/[employer] Medigap Part B [id number] 2...662446.3.227.99.572.54832.0 Self V [id number] [employer] BCBS [id number] Isabella VYS [id number] [place] 306/806 [id number] SP [id number] [place]BS [place] PPO 302/307 [id number] SP [id number] BC/[place] Of [place] Commercial [id number] 2...619066.3.227.99.177.60812.0 Self S [id number] NO FAULT GENERIC E [id number] Self [id number] NO FAULT GENERIC E [id number] Self [id number] NO FAULT GENERIC E [id number] Self [id number] [employer] ([employer]) Workers Compensation [id number] 2..1.975763.3.227.99.991.925000.0 Self [id number] BS Of [place] Commercial [id number] 2...893638.3.227.99.177.86796.0 Self V [id number] [place] P[place] 302/307 [id number] SP [id number] ANSI-Commercial [id number]-unwi-62d7-32e0-3re5d1frkzn6 60011602-upos-49g9-41l4-2ce1f0jfuxq8 ANSI-Commercial tl236ns0-6on2-0p22-p9b3-0z68g0dnf0o4 gm600rz7-7yv9-7s89-j3g9-3j88v0cow1t0 ANSI-Commercial h1v1203n-h011-58sy-g55w-q1r3so3t0422 y5m1972o-z666-56sl-i93n-m2c6jh7l0938 ANSI-Commercial p56zj904-wm32-50hg-b57x-k7o5po83f807 s90tn070-sc84-66se-m33t-n2l4hh88i037 ANSI-Commercial 8971779x-ai04-5356-84w1-9922v5u93l36 8905462o-qj83-7621-15q5-6812i7l41u20 ANSI-Commercial 21s72502-6n36-8vn4-878e-3ta80y5247ih 50v97139-7x98-8jz1-676w-1mb50x6238bm ANSI-Commercial i7l0iz17-0858-2m28-f016-5c28x4gj3d3x h8z2mu64-0736-4w11-r324-0x09c9on1e2y ANSI-Commercial 72l938a8-f081-6kf9-5a90-s32j35d781s7 62t684w8-s108-8np6-7k22-y16k49z631g7 ANSI-Commercial 46956155-nl09-8886-9ga5-o33y8q7u9f8o 27394677-tq00-7569-6an5-c66v1q8h1x3h ANSI-Commercial 25hnvu35-xaa6-92h7-tun7-k460f0958b9v 31pdta72-bhm1-15h5-tad7-z006a6204z8c BCBS [employer] U/W Medigap Part B [id number] .1.694788.3.227.99.572.16333.0 Self S [id number] BCBS Medicare Blue U/W Commercial [id number] 840.1.181214.3.227.99.572.10370.0 Self V [id number] BCBS [employer] U/W Medigap Part B [id number] .16.840.1.513152.3.227.99.572.68853.0 Self S [id number] BCBS Medicare Blue U/W Commercial [id number] .16.840.1.393539.3.227.99.572.14529.0 Self V [id number] ANSI-Commercial 0h62qfgt-rox4-57k6-6556-4622z84a716f 8i57yily-zry8-64n0-0485-8639a97m895q ANSI-Commercial 793etq81-vzo2-225s-0h98-8p669o0w6g29 337nzm52-plv7-974j-2t20-9n909g6y5f32 ANSI-Commercial 53093447-4145-44i7-7ddb-c95z7657p6k9 25421217-1946-48k4-3xgg-o26n5505y2j4 ANSI-Commercial 344841zq-11f6-16se-6816-8505q110su69 390519xh-81x2-40la-9128-7706g361gy87 ANSI-Commercial 79326z6g-uiq9-141m-ryxm-crr4221b429j 09724g0a-npt8-376h-eojm-ort6328d365l ANSI-Commercial 4598lw12-4f6e-428f-2z95-t24yd41vq846 8989eb89-0u3g-891o-8r63-h82ls03ky504 ANSI-Commercial 95no0u67-wy82-7464-v002-rl18w077nt2k 51nk0o27-fx25-3011-m677-ky38x888ih4b ANSI-Commercial 7j5959d2-968b-1850-k5w2-139a7pyg704w 3s5003v0-480y-9270-c2r2-564i2bpz846t ANSI-Commercial kw3n67al-97ug-275c-66af-1261c891z1vq ru4n55vh-12vh-320u-76vt-1942z460p6rw ANSI-Commercial 6x69hjy4-9972-6c9i-a533-uzzi066jw3bk 0b49ehb4-6052-7a8d-p703-ssae892gm3xi ANSI-Commercial 61x4v628-31h4-6i33-sg18-87th9r4q8hp8 33p6z244-76q2-8f86-eh55-99qz8i1s8zs7 ANSI-Commercial 9620t24k-8d96-8wks-233m-x24255s3072m 3518b43d-3u59-1bfo-224n-z32712x4291k ANSI-Commercial 19593302-9lyn-124b-j844-t03329hv07u9 16950019-5ldl-741d-c172-m09361tx71h3 ANSI-Commercial 92in069a-n261-12v5-e0id-0768wh048okn 79oe924s-n010-06s1-g8fe-3903oi416imn ANSI-Commercial 30cep1q7-w987-2bb1-v378-gw8877544050 73oqc0d5-m346-7ew5-w153-sq7995042092 ANSI-Commercial bur67802-7667-4734-90l9-sv288ptu511h qlt24645-2852-0538-50k0-eu495xdv358y ANSI-Commercial i200205f-490j-64gr-fae1-8m72p6y49228 a294065g-921t-87zx-yqq9-3b65p1u78327 ANSI-Commercial vsi0pn8l-311d-3966-o11l-4c7099c3z7if tyr9rk6u-956l-5251-t65y-7m2483a9i0ye ANSI-Commercial n90v3zvh-840l-0148-r62m-36822bp599mi h49r4zfb-305k-3667-q68h-42527ft835lo ANSI-Commercial 2ru7z90d-d881-7397-p0s2-o0n1ovi90r4t 5xp7z21l-h698-2199-v4c6-q4x4mgc87f8t [facility] [id number] SP [id number] ANSI-Commercial 7690eaf4-8863-52t5-2502-o3or21uh4129 1523cqe8-1409-89u3-4634-i4bv09nb9962 ANSI-Commercial n5c76710-dyt8-7510-8n36-2e50136g4cvp o5i64962-xet0-4976-6e51-8y59613t8pba ANSI-Commercial 287n0816-62u8-7910-52sf-1831s8ja4434 510s0287-99a4-3014-29hj-7245a1oa2813 ANSI-Commercial 8s6xh172-18mq-8e06-h1ij-7pz06006x08q 8e4bi489-00sp-8i87-k1jo-3ju42983d87o ANSI-Commercial t45768k7-o903-2953-t2ie-alt81v0k9cl1 b39627v3-r767-5755-g8cz-vbn79k0c5zw4 ANSI-Commercial 81dw2288-89d5-295c-0u20-74e233odyqy6 13oy4453-50z2-045z-1p77-58h627hthhc2 ANSI-Commercial 13124r21-qc5s-5a46-425f-26h1565foaw8 68813u89-al5p-0s52-309j-19x1202nbwq1 ANSI-Commercial 7tk06235-30xp-52g9-6836-6fl608183h5q 8mc30558-62mi-05u6-6011-8uw575858s4a ANSI-Commercial w85ys117-7446-7450-7683-3s1kt337k2vi z81rs035-6369-8517-3452-9v3cq805f9rh ANSI-Commercial 8kbn674b-749f-4816-u861-vjn28cz6tt05 1ztk768i-307i-0364-b708-dgn11cb2ke54 ANSI-Commercial 642857n8-2207-38d5-o75w-1t93d7945r57 418881a5-6333-25u6-y43u-1m76t2666g43 ANSI-Commercial 203e9844-3a5y-2282-fn16-bk5m7t71l53o 091j7021-8n9t-5901-bh40-cg8w0c24u61g ANSI-Commercial h4255d5f-9s96-52h1-6646-55w77wy3563x g5726g5g-8n61-20c2-7601-72q15gd6058a ANSI-Commercial 5fg2q85d-27gz-6p16-a759-482379q50840 4dc2s40g-44ke-3g62-d386-925435j43650 ANSI-Commercial 378a699c-61fb-0168-j229-hi5c868u9xc6 152n630v-44kf-4514-v335-mi7g320s6hy2 ANSI-Commercial h434l444-6193-6l9s-7vs2-3c3319975559 j326p553-1777-0l6v-3py8-4e3075996943 ANSI-Commercial d0xzp8q7-23tv-0s51-7j58-852x117kgiss n3bgv2b5-48qm-7v33-7q33-499u853ijdte ANSI-Commercial jg9c7c86-w33r-30v8-52o8-u5h19j746238 fn5v8r04-i42r-96w7-09a2-s5t94l177898 ANSI-Commercial hcjksbcq-a2i0-34rxl2t5-47ej-88n9-48599k5c860v zrufypwi-e3j9-75yer7e1-70sy-60q1-55075d5n844g ANSI-Commercial q34iqkd8-od27-2x70-6440-53xy18q4ttc5 q10xqkp5-ex05-2m97-8735-67ko24v9dra9 ANSI-Commercial ts40nkqq-757x-6498-2666-49n0t0970d8d kh85ydrc-394r-6324-2939-05r5v1436s2n ANSI-Commercial 6g1644o3-331b-281w-i544-56ia33906ln9 0k3472v4-333n-818t-c847-15sk17289zy6 ANSI-Commercial 5grs800f-9111-7e9y-p1w7-0o07z760598o 5cnb778n-1662-7k6y-w1g4-8d87x344077c ANSI-Commercial 4lap77zt-5s9a-0955-mu74-50t0886844d5 2rnx04wj-4z3c-3630-tr65-72w6203178c4 ANSI-Commercial 6jgd4a7b-4080-8s57-15r0-1641o79949xc 2grf5g3s-4356-4j53-89i2-9478s50873lf ANSI-Commercial 6i6493tq-w39l-3720-8wyt-71990y584854 8x1973ol-t08g-0297-8wxj-87465o094584 ANSI-Commercial 066dp6ew-x1p0-99c7-zt6w-w3412ck4o923 810vx3ed-h4p0-14y1-gu3i-q9115ww7g879 ANSI-Commercial 22xm7rb6-5v22-9n20-5nzm-64qux7796y38 29fv9et2-6z82-0m46-1wjc-68cyz3633a85 ANSI-Commercial 10605829-488c-889x-t2k8-57l58ne9t1su 32850509-063o-878g-o3m9-24g70jd6l1fz ANSI-Commercial e75d1i2x-6i56-2j04-i5y1-xw6w72zx383w d08d8q2q-5v15-8a14-d0g1-oy6m78wg637k ANSI-Commercial t295l6d3-vt22-4116-7ou3-1bc7172fb1m3 m474y6u3-br43-9452-6sl9-2rw1610wl8r1 ANSI-Commercial mh7062a6-762i-1w7p-b716-22977h12ix58 xi1814c2-110h-5h1m-e355-11045n41qq40 ANSI-Commercial 5950r984-3766-8d70-7c53-82q7yi7o1xv8 4339u303-8763-8g12-1q83-46n2vx7h7gq8 ANSI-Commercial yj053089-qj81-560v-4056-wsf1292b8yz7 ya291176-xa19-305u-3971-pse6282b2rx1 ANSI-Commercial 2iv44u7c-vh5k-6042-1685-3gxwfz98ux13 8ih32h2x-ix2i-7540-0479-3hpvik24hq05 ANSI-Commercial 5q279u66-4f6m-52hm-hy07-8524005b8841 6x373j43-1m3x-10so-sk95-9610140j4527 ANSI-Commercial 5r913f32-3j5x-7r58-1us2-9556r3q44x9k 7u857a40-0b1x-9u55-8au4-3601b6i97u5m ANSI-Commercial 13549lvp-qo6g-5wro-6712-618s467wse78 02577olc-nd4s-5mjj-2876-267k861lzr17 ANSI-Commercial a2881y6t-o6ct-6plw-7vo6-7wp01yay8k27 j3751l7g-p1bo-2vso-3vk8-5xt63qap7v41 ANSI-Commercial s974x219-1652-4om9-tx10-06301xue5x66 o995r461-5725-1fi9-mb86-84923yvx8q04 [facility] [id number] S VYA [id number] GENERAL CASUALTY O [id number] S 483 705N ANSI-Commercial vh6149m0-4916-0787-0489-jgfso465g1hg kj6171m0-6325-7227-0710-fcjvc620c4xu ANSI-Commercial 40nf99r5-2899-13p5-a581-48458003nsst 49vw45y0-6268-06x9-w479-43365755dwkp ANSI-Commercial tbu69744-t738-53a9-by48-252lt86w0354 hti54352-a584-04p7-bt00-136ca80z3051 ANSI-Commercial 40x411n7-9e4s-2t6a-4p4s-19b409a93r02 79y053a4-0t3n-6r2b-3n2c-53k868q95n07 BCBS Excell[employer] U/W Medigap Part B [id number] 2..1.524388.3.227.99.572.36472.0 Self S [id number] BCBS Medicare Blue U/W Commercial [id number] 2..1.441970.3.227.99.572.24435.0 Self V [id number] GENERAL CASUALTY COMPANIES [id number] 18 [id number] BCBS [place] PPO 302/307 [id number] SP [id number] [place]BS [place] PPO 302/307 [id number] SP [id number] BCBS [employer] Ppo U/W Medigap Part B [id number] 2..1.777028.3.227.99.572.45476.0 Self S [id number] [employer] BCBS Health Maintenance Organization (HMO) [id number] 2.0.1.501660.3.227.99.8646.34130.0 Self [id number] BCBS [employer] Ppo U/W Medigap Part B [id number] 2.0.1.401896.3.227.99.572.62128.0 Self S [id number] BCBS [employer] Ppo U/W Medigap Part B [id number] 2.840.1.652321.3.227.99.572.30684.0 Self S [id number] BCBS [employer] Ppo U/W Medigap Part B [id number] 2.0.1.304161.3.227.99.572.64948.0 Self S [id number] BLUE CROSS BLUE SHIELD -O/P [id number] 18 [id number] BLUE CROSS BLUE SHIELD -O/P [id number] 18 [id number] BCBS [employer] Ppo U/W Medigap Part B [id number] 2.0.1.546360.3.227.99.572.18712.0 Self S [id number] BCBS [employer] Ppo U/W Medigap Part B [id number] 2.0.1.048917.3.227.99.572.72323.0 Self S [id number] BCBS [employer] Ppo U/W Medigap Part B [id number] 2.0.1.865117.3.227.99.572.13812.0 Self S [id number] [employer] BCBS B [id number] S HOSSEIN [id number] BCBS [place] PPO 302/307 [id number] SP [id number] MEMIC -PHYSICIAN [id number] 1 8 [id number] MEMIC -O/P [id number] 18 [id number] MEMIC SSV O [id number] S [id number] [employer] BCBS B [id number] S VYS [id number] BS Of [facility] ([facility] [place]) [id number] Self BCBS [place] PPO 302/307 [id number] SP [id number] MEMIC SSV W/C [id number] SP [id number] MEMIC SSV W/C [id number] SP [id number] MEMIC SSV W/C [id number] SP [id number] PMA MANAGEMENT [facility] [id number] SP [id number] OTHER WORKERS COMPENSATION [id number] SP [id number] BCBS [place] 306/806 [id number] SP [id number] BCBS [place] PPO 302/307 [id number] SP [id number] MEMIC SSV W/C UNAVAILABLE SP UNAV AILABLE OTHER WORKERS COMPENSATION [id number] SP [id number] SELF PAY UNAVAILABLE UNAVAILA BLE MEMIC [id number] SP [id number] MEMIC [id number] SP [id number] ONE CALL CARE MANAGEMENT P [id number] S [id number] [employer] BCBS P [id number] S VYA [id number] PMA MANAGEMENT [facility] DOI [id number] SP DOI [id number] PMA MANAGEMENT [facility] [id number] SP [id number] [employer] [place] 306/806 [id number] SP [id number] BC[employer] [place] 306/806 UNKNOWN SP UNKNOWN [employer] P [id number] S [id number] PMA MANAGEMENT [facility] [id number] SP [id number] [facility] P UNAVAILABLE [id number] S UNAVAILABLE *EMPLOYEE HEALTH* *EMPLOYEE HEALTH* SP *EMPLOYEE HEALTH* [facility] [id number] SP [id number] [place]BS [place] PPO 302/307 [id number] SP [id number] [place]BS [place] PPO 302/307 [id number] SP [id number] [employer]BS [place] 306/806 [id number] SP [id number] [place]BS [place] PPO 302/307 [id number] SP [id number] [place]BS [place] H[place] [id number] SP [id number] [place]BS [place] PPO 302/307 [id number] SP [id number] [place] 020/520 [id number] SP [id number] [place] 306/806 [id number] SP [id number] [place] 020/520 [id number] SP [id number] SELF PAY ONLY [id number] SP [id number] [place]BS [place] HMO [id number] SP [id number] [place] BCBS B [id number] S [id number] [place]BS [place] PPO 302/307 [id number] SP [id number] [place]BS [place] PPO 302/307 [id number] SP [id number] [employer] B [id number] S VYA [id number] ANSI-Commercial [id number] ANSI-Commercial [id number]-[id number] ANSI-Commercial [id number] ANSI-Commercial [id number] ANSI-Commercial [id number] ANSI-Commercial [id number]-[id number] ANSI-Commercial [id number] ANSI-Commercial [id number] ANSI-Commercial [id number] ANSI-Commercial [id number] ANSI-Commercial [id number] ANSI-Commercial [id number] ANSI-Commercial [id number] ANSI-Commercial [id number] ANSI-Commercial [id number]-ptky-[id number]-thmc-99m8-9u0x-[id number] ANSI-Commercial [id number] ANSI-Commercial [id number] ANSI-Commercial [id number]-[id number] ANSI-Commercial [id number]-[id number] ANSI-Commercial [id number] ANSI-Commercial [id number] ANSI-Commercial [id number]-u3lf-[id number]-43al-[id number]-9d8j-[id number] ANSI-Commercial [id number] ANSI-Commercial [id number] QBE INSURANCE [id number] SP [id number] N ANSI-Commercial [id number]-[id number]-[id number] ANSI-Commercial [id number] ANSI-Commercial [id number]-[id number] q6g6p5mg-79i9-6135-yi1m-[id number] ANSI-Commercial [id number] [id number]-[id number] ANSI-Commercial [id number]-4w0o-[id number]-9x5r-[id number] ANSI-Commercial [id number] [id number]-91v3-3vpsi0s7x4lk Problems, Conditions, and Diagnoses Code Display Name Description Problem Type Effective Dates Data Source(s) M47.812 [id number] Cervical spondylosis Problem 06/19/2021 12:0 0:00 AM EDT eCW1 ([facility]) G56.03 [id number] Bilateral carpal tunnel syndrome Problem 06/19/2021 12:00:00 AM EDT eCW1 ([facility]) Z12.11 [id number] Colon cancer screening Problem 03/19/2021 12 :00:00 AM EDT eCW1 ([facility]) Surgeries/Procedures Procedure Description Date Indications Data Source(s) Endoscopy Upper GI Biopsy 02/26/2021 12:00:00 AM EDT MED[facility] ([facility], ) Colonoscopy W/ Poly 02/26/2021 12:00:00 AM EDT MEDENT ([facility], ) Immunization: Flublok Quadrivalent (18 years & older) 0.5mL IM (Influenza) 09/19/2020 12:00:00 AM EDT eCW1 ([facility]) XTRNL PT ACTIVATED ECG RECORD MONITOR 30 DAYS 07/27/20 12:00:00 AM EDT MEDENT ([facility]) XTRNL PT ACTIVTD ECG DWNLD 30 DAYS PHYS R&I 07/27/2020 12:00:00 AM EDT [facility] ([facility]) ECG ROUTINE ECG W/LEAST 12 LDS W/I&R 07/12/2020 12:00: 00 AM EDT [facility] ([facility]) Results ID Date Data Source [id number] 08/10/2021 10:25:00 AM EDT [facility] Name Value Range Interpretation Code Description Data Jessica rce(s) Supporting Document(s) SARS-CoV-2 (COVID-19) RNA [Presence] in Respiratory specimen by JIMMIE with probe detection Not Detected [facility] This lab was ordered by [facility] and reported by [employer] ID Date Data Source LIPASE 05/24/2021 12:00:00 AM EDT eCW1 ([facility]) Name Value Range Interpretation Code Description Data Jessica rce(s) Supporting Document(s) [id number] LIPASE eCW1 ([facility]) ID Date Data Source Comprehensive Metabolic Profile (CMP) 05/24/2021 12:00:00 AM EDT eCW1 ([facility]) Name Value Range Interpretation Code Description Data Jessica rce(s) Supporting Document(s) 61 70-100 GLUCOSE, FASTING eCW1 ([facility]) 13 7-18 BLOOD UREA NITROGEN eCW1 ([facility]) 0.49 0.55-1.30 CREATININE FOR GFR eCW1 ([facility]) 142 136-145 SODIUM LEVEL eCW1 ([facility]) > 60.0 >51 GLOMERULAR FILTRATION RATE eCW 1 ([facility]) 4.1 3.5-5.1 POTASSIUM SERUM eCW1 ([facility]) 107 98-107 CHLORIDE LEVEL eCW1 ([facility]) 9.3 8.5-10.1 CALCIUM LEVEL eCW1 ([facility]) 30 21-32 CARBON DIOXIDE LEVEL eCW1 ([facility]) 10 7-37 AST/SGOT eCW1 ([facility]) 96 45-117 ALKALINE PHOSPHATASE eCW1 ([facility]) 24 12-78 ALT/SGPT eCW1 ([facility]) 0.5 0.2-1.0 BILIRUBIN,TOTAL eCW1 ([facility]) 7.2 6.4-8.2 TOTAL PROTEIN eCW1 ([facility]) 3.9 3.2-5.2 ALBUMIN eCW1 ([facility]) 1.2 1.2-2.2 ALBUMIN/GLOBULIN RATIO eCW1 ([facility]) ID Date Data Source CBC with Differential 05/24/2021 12:00:00 AM EDT eCW1 ([facility]) Name Value Range Interpretation Code Description Data Jessica rce(s) Supporting Document(s) 5.3 4.0-10.0 WHITE BLOOD COUNT eCW1 ([facility]) 4.22 4.00-5.40 RED BLOOD COUNT eCW1 ([facility]) 12.7 12.0-15.5 HEMOGLOBIN eCW1 ([facility]) 96.4 80.0-96.0 MEAN CORPUSCULAR VOLUME e CW1 ([facility]) 40.7 36.0-47.0 HEMATOCRIT eCW1 ([facility]) 30.1 27.0-33.0 MEAN CORPUSCULAR HEMOGLOB IN eCW1 ([facility]) 31.2 32.0-36.5 MEAN CORPUSCULAR HGB CONC eCW1 ([facility]) 13.0 11.5-14.5 RED CELL DISTRIBUTION WID TH eCW1 ([facility]) 53.4 36.0-66.0 NEUTROPHILS % eCW1 ([facility]) 233 150-450 PLATELET COUNT, AUTOMATED eCW1 ([facility]) 31.6 24.0-44.0 LYMPH % eCW1 ([facility]) 3.6 0.0-3.0 EOS % eCW1 ([facility]) 10.2 2.0-8.0 MONO % eCW1 ([facility]) 2.8 1.5-8.5 NEUTROPHILS # eCW1 ([facility]) 0.8 0.0-1.0 BASO % eCW1 ([facility]) 0.2 0.0-0.5 EOS # eCW1 ([facility]) 1.7 1.5-5.0 LYMPH # eCW1 ([facility]) 0.5 0.0-0.8 MONO # eCW1 ([facility]) 0.0 0.0-0.2 BASO # eCW1 ([facility]) ID Date Data Source [id number] 02/26/2021 09:08:00 AM EDT [facility] ([facility], ) Name Value Range Interpretation Code Description Data Jessica rce(s) Supporting Document(s) Surgical pathology study Laboratory test result [facility] ([facility], ) FINAL DIAGNOSIS A-Small bowel, biopsy: Small intestinal mucosa with normal villous architecture and nonspecific mild inflammation. No evidence of celiac disease. B--Gastric biopsy: Gastric mucosa with reactive changes. No H.pylori is identified. C-Colon, hepatic flexure polyp, polypectomy: Polypoid fragments of colonic mucosa with hyperplastic changes. 02/27/2021 - 130 CLINICAL DIAGNOSIS Iron deficiency anemia, abdominal pain, [...] MD 02/27/2021 1309 ID Date Data Source [id number] 02/21/2021 11:00:00 AM EDT [facility] Name Value Range Interpretation Code Description Data Jessica rce(s) Supporting Document(s) SARS-CoV-2 (COVID-19) RNA [Presence] in Respiratory specimen by JIMMIE with probe detection Not Detected [facility] This lab was ordered by [facility] and reported by [facility] [facility] ID Date Data Source t-Transglutaminase (tTG) IgA 12/19/2020 12:00:00 AM EST eCW1 ([facility]) Name Value Range Interpretation Code Description Data Jessica rce(s) Supporting Document(s) Tissue transglutaminase IgA Ab [Units/volume] in Serum <2 0-3 TISSUE TRANSGLUTAMINASE IgA eCW1 ([facility]) ID Date Data Source FOLATE 12/19/2020 12:00:00 AM EST eCW1 ([facility]) Name Value Range Interpretation Code Description Data Jessica rce(s) Supporting Document(s) > 24.0 >5.4 FOLATE eCW1 ([facility]) ID Date Data Source FERRITIN 12/19/2020 12:00:00 AM EST eCW1 ([facility]) Name Value Range Interpretation Code Description Data Jessica rce(s) Supporting Document(s) [id number] FERRITIN eCW ([facility]) ID Date Data Source [id number] 12/17/2020 09:15:00 AM EST [facility] Name Value Range Interpretation Code Description Data Jessica rce(s) Supporting Document(s) SARS coronavirus 2 RNA [Presence] in Res piratory specimen by JIMMIE with probe detection NEGATIVE [facility] This lab was ordered by [facility] a nd reported by [facility]. ID Date Data Source [id number] 11/30/2020 12:00:00 AM EST [facility] Name Value Range Interpretation Code Description Data Jessica rce(s) Supporting Document(s) SARS-CoV-2 (COVID-19) RNA [Presence] in Respiratory specimen by JIMMIE with probe detection Not Detected [facility] This lab was ordered by [facility] and reported by [employer] Procedure Social History Code Duration Value Status Description Data Source(s ) Smoking 08/31/2021 12:00:00 AM EDT Never Smoker completed Never S moker eCW1 ([facility]) Smoking 07/10/2021 12:00:00 AM EDT Never Smoker completed Never S moker eCW1 ([facility]) Smoking 07/10/2021 12:00:00 AM EDT Never Smoker completed Never S moker eCW1 ([facility]) Smoking 06/19/2021 12:00:00 AM EDT Never Smoker completed Never S moker eCW1 ([facility]) Smoking 06/19/2021 12:00:00 AM EDT Never Smoker completed Never S moker eCW1 ([facility]) Smoking 06/19/2021 12:00:00 AM EDT Never Smoker completed Never S moker eCW1 ([facility]) Smoking 06/19/2021 12:00:00 AM EDT Never Smoker completed Never S moker eCW1 ([facility]) Smoking 06/19/2021 12:00:00 AM EDT Never Smoker completed Never S moker eCW1 ([facility]) Smoking 06/19/2021 12:00:00 AM EDT Never Smoker completed Never S moker eCW1 ([facility]) Smoking 06/19/2021 12:00:00 AM EDT Never Smoker completed Never S moker eCW1 ([facility]) Smoking 06/19/2021 12:00:00 AM EDT Never Smoker completed Never S moker eCW1 ([facility]) Smoking 06/19/2021 12:00:00 AM EDT Never Smoker completed Never S moker eCW1 ([facility]) Smoking 05/24/2021 12:00:00 AM EDT Never Smoker completed Never S moker eCW1 ([facility]) Smoking 05/24/2021 12:00:00 AM EDT Never Smoker completed Never S moker eCW1 ([facility]) Smoking 03/19/2021 12:00:00 AM EDT Never Smoker completed Never S moker eCW1 ([facility]) Smoking 01/15/2021 12:00:00 AM EST Never Smoker completed Never S moker eCW1 ([facility]) Smoking 01/15/2021 12:00:00 AM EST Never Smoker completed Never S moker eCW1 ([facility]) Smoking 01/15/2021 12:00:00 AM EST Never Smoker completed Never S moker eCW1 ([facility]) Smoking 01/15/2021 12:00:00 AM EST Never Smoker completed Never S moker eCW1 ([facility]) Smoking 01/15/2021 12:00:00 AM EST Never Smoker completed Never S moker eCW1 ([facility]) Smoking 01/15/2021 12:00:00 AM EST Never Smoker completed Never S moker eCW1 ([facility]) Smoking 01/15/2021 12:00:00 AM EST Never Smoker completed Never S moker eCW1 ([facility]) Smoking 01/15/2021 12:00:00 AM EST Never Smoker completed Never S moker eCW1 ([facility]) Smoking 12/19/2020 12:00:00 AM EST Never Smoker completed Never S moker eCW1 ([facility]) Smoking 12/19/2020 12:00:00 AM EST Never Smoker completed Never S moker eCW1 ([facility]) Smoking 12/19/2020 12:00:00 AM EST Never Smoker completed Never S moker eCW1 ([facility]) Smoking 12/19/2020 12:00:00 AM EST Never Smoker completed Never S moker eCW1 ([facility]) Smoking 12/19/2020 12:00:00 AM EST Never Smoker completed Never S moker eCW1 ([facility]) Smoking 12/19/2020 12:00:00 AM EST Never Smoker completed Never S moker eCW1 ([facility]) Smoking 12/19/2020 12:00:00 AM EST Never Smoker completed Never S moker eCW1 ([facility]) Smoking 12/19/2020 12:00:00 AM EST Never Smoker completed Never S moker eCW1 ([facility]) Smoking 12/13/2020 12:00:00 AM EST Never Smoker completed Never S moker eCW1 ([facility]) Smoking 12/13/2020 12:00:00 AM EST Never Smoker completed Never S moker eCW1 ([facility]) Smoking 12/04/2020 12:00:00 AM EST Never Smoker completed Never S moker eCW1 ([facility]) Smoking 12/04/2020 12:00:00 AM EST Never Smoker completed Never S moker eCW1 ([facility]) Smoking 12/04/2020 12:00:00 AM EST Never Smoker completed Never S moker eCW1 ([facility]) Smoking 07/12/2020 12:00:00 AM EDT Patient is a former smoker completed Patient is a former smoker [facility] ([facility]) Vital Signs ID Date Data Source UNK Name Value Range Interpretation Code Description Data Source(s) Diastolic blood pressure 80 mm[Hg] 80 mm[Hg] eCW1 ([facility]) Body weight 159 [lb_av] 159 [lb_av] eCW1 ([facility]) Body height 62 [in_i] 62 [in_i] eCW1 ([facility]) Body mass index (BMI) [Ratio] 29.08 kg/m2 29.08 kg/m2 eCW1 ([facility]) Heart rate 82 /min 82 /min eCW1 ([facility]) Respiratory rate 20 /min 20 /min eCW1 ([facility]) Body temperature 97.2 [degF] 97.2 [degF] eCW1 ( [facility]) Systolic blood pressure 120 mm[Hg] 120 mm[Hg] e CW1 ([facility]) Body height 62 [in_i] 62 [in_i] eCW1 ([facility]) Body weight 172 [lb_av] 172 [lb_av] eCW1 ([facility]) Body weight 78.02 kg 78.02 kg eCW1 ([facility]) Heart rate 72 /min 72 /min eCW1 ([facility]) Body mass index (BMI) [Ratio] 31.46 kg/m2 31.46 kg/m2 eCW1 ([facility]) Respiratory rate 20 /min 20 /min eCW1 ([facility]) Body temperature 97.8 [degF] 97.8 [degF] eCW1 ( [facility]) Systolic blood pressure 116 mm[Hg] 116 mm[Hg] e CW1 ([facility]) Diastolic blood pressure 72 mm[Hg] 72 mm[Hg] eCW1 ([facility]) Body weight 170.0 [lb_av] 170.0 [lb_av] eCW1 ([facility]) Body weight 170.0 [lb_av] 170.0 [lb_av] eCW1 ([facility]) Body height 62 [in_i] 62 [in_i] eCW1 ([facility]) Body mass index (BMI) [Ratio] 31.09 kg/m2 31.09 kg/m2 eCW1 ([facility]) Heart rate 58 /min 58 /min eCW1 ([facility]) Respiratory rate 20 /min 20 /min eCW1 ([facility]) Body temperature 97.8 [degF] 97.8 [degF] eCW1 ( [facility]) Systolic blood pressure 118 mm[Hg] 118 mm[Hg] e CW1 ([facility]) Diastolic blood pressure 62 mm[Hg] 62 mm[Hg] eCW1 ([facility]) Body height 62 [in_i] 62 [in_i] eCW1 ([facility]) Body mass index (BMI) [Ratio] 31.09 kg/m2 31.09 kg/m2 eCW1 ([facility]) Heart rate 58 /min 58 /min eCW1 ([facility]) Respiratory rate 20 /min 20 /min eCW1 ([facility]) Body temperature 97.8 [degF] 97.8 [degF] eCW1 ( [facility]) Systolic blood pressure 118 mm[Hg] 118 mm[Hg] e CW1 ([facility]) Diastolic blood pressure 62 mm[Hg] 62 mm[Hg] eCW1 ([facility]) Body weight 168.6 [lb_av] 168.6 [lb_av] eCW1 ([facility]) Body height 62 [in_i] 62 [in_i] eCW1 ([facility]) Body mass index (BMI) [Ratio] 30.83 kg/m2 30.83 kg/m2 eCW1 ([facility]) Heart rate 73 /min 73 /min eCW1 ([facility]) Respiratory rate 20 /min 20 /min eCW1 ([facility]) Body temperature 97.9 [degF] 97.9 [degF] eCW1 ( [facility]) Systolic blood pressure 122 mm[Hg] 122 mm[Hg] e CW1 ([facility]) Diastolic blood pressure 70 mm[Hg] 70 mm[Hg] eCW1 ([facility]) Body weight 165.6 [lb_av] 165.6 [lb_av] eCW1 ([facility]) Body height 62 [in_i] 62 [in_i] eCW1 ([facility]) Body mass index (BMI) [Ratio] 30.29 kg/m2 30.29 kg/m2 eCW1 ([facility]) Heart rate 72 /min 72 /min eCW1 ([facility]) Respiratory rate 20 /min 20 /min eCW1 ([facility]) Body temperature 97.4 [degF] 97.4 [degF] eCW1 ( [facility]) Systolic blood pressure 110 mm[Hg] 110 mm[Hg] e CW1 ([facility]) Diastolic blood pressure 62 mm[Hg] 62 mm[Hg] eCW1 ([facility]) Body mass index (BMI) [Ratio] 31.2 kg/m2 31.2 k g/m2 MEDENT ([facility], ) Body weight 74.844 kg 74.844 kg MEDENT ([facility], ) Body surface area Derived from formula 1.74 m2 1.74 m2 MEDENT ([facility] ) [place] body weight 105 [lb_av] 105 [lb_av] MEDEN T ([facility], ) Systolic blood pressure 110 mm[Hg] 110 mm[Hg] M EDENT ([facility], ) Diastolic blood pressure 64 mm[Hg] 64 mm[Hg] [facility] ([facility]) Body height 61 [in_i] 61 [in_i] MEDENT ([facility]) 5'1" Body weight 165.00 [lb_av] 165.00 [lb_av] MEDEN T ([facility]) Body weight 66.2 [lb_av] 66.2 [lb_av] eCW1 ([facility]) Body height 62 [in_i] 62 [in_i] eCW1 ([facility]) Body mass index (BMI) [Ratio] 12.11 kg/m2 12.11 kg/m2 eCW1 ([facility]) Heart rate 59 /min 59 /min eCW1 ([facility]) Respiratory rate 18 /min 18 /min eCW1 ([facility]) Body temperature 97.3 [degF] 97.3 [degF] eCW1 ( [facility]) Systolic blood pressure 114 mm[Hg] 114 mm[Hg] e CW1 ([facility]) Diastolic blood pressure 60 mm[Hg] 60 mm[Hg] eCW1 ([facility]) Diastolic blood pressure 70 mm[Hg] 70 mm[Hg] [facility] ([facility]) Body weight 165.00 [lb_av] 165.00 [lb_av] MEDEN T ([facility]) Body mass index (BMI) [Ratio] 31.2 kg/m2 31.2 k g/m2 [facility] ([facility]) [place] body weight 105 [lb_av] 105 [lb_av] MEDEN T ([facility]) Body weight 74.844 kg 74.844 kg [facility] ([facility]) Body surface area Derived from formula 1.74 m2 1.74 m2 [facility] ([facility]) Body height 61 [in_i] 61 [in_i] [facility] ([facility]) 5'1" Systolic blood pressure 118 mm[Hg] 118 mm[Hg] M EDENT ([facility]) Body weight 163 [lb_av] 163 [lb_av] eCW1 ([facility]) Body height 62 [in_i] 62 [in_i] eCW1 ([facility]) Body mass index (BMI) [Ratio] 29.81 kg/m2 29.81 kg/m2 eCW1 ([facility]) Heart rate 71 /min 71 /min eCW1 ([facility]) Respiratory rate 18 /min 18 /min eCW1 ([facility]) Body temperature 98.3 [degF] 98.3 [degF] eCW1 ( [facility]) Systolic blood pressure 100 mm[Hg] 100 mm[Hg] e CW1 ([facility]) Diastolic blood pressure 60 mm[Hg] 60 mm[Hg] eCW1 ([facility]) Body weight 160 [lb_av] 160 [lb_av] eCW1 ([facility]) Body height 62 [in_i] 62 [in_i] eCW1 ([facility]) Body mass index (BMI) [Ratio] 29.26 kg/m2 29.26 kg/m2 eCW1 ([facility]) Heart rate 78 /min 78 /min eCW1 ([facility]) Respiratory rate 16 /min 16 /min eCW1 ([facility]) Body temperature 97.3 [degF] 97.3 [degF] eCW1 ( [facility]) Systolic blood pressure 118 mm[Hg] 118 mm[Hg] e CW1 ([facility]) Diastolic blood pressure 72 mm[Hg] 72 mm[Hg] eCW1 ([facility]) Body weight 161 [lb_av] 161 [lb_av] eCW1 ([facility]) Body height 62 [in_i] 62 [in_i] eCW1 ([facility]) Body mass index (BMI) [Ratio] 29.44 kg/m2 29.44 kg/m2 eCW1 ([facility]) Heart rate 75 /min 75 /min eCW1 ([facility]) Respiratory rate 18 /min 18 /min eCW1 ([facility]) Body temperature 97.1 [degF] 97.1 [degF] eCW1 ( [facility]) Systolic blood pressure 130 mm[Hg] 130 mm[Hg] e CW1 ([facility]) Diastolic blood pressure 72 mm[Hg] 72 mm[Hg] eCW1 ([facility]) [place] body weight 105 [lb_av] 105 [lb_av] MEDEN T ([facility]) Body weight 70.421 kg 70.421 [facility] Body surface area Derived from formula 1.70 m2 1.70 m2 [facility] ([facility]) Systolic blood pressure 122 mm[Hg] 122 mm[Hg] M EDENT ([facility]) Diastolic blood pressure 81 mm[Hg] 81 mm[Hg] [facility] ([facility]) Body height 61 [in_i] 61 [in_i] [facility] ([facility]) 5'1" Body weight 155.25 [lb_av] 155.25 [lb_av] MEDEN T ([facility]) Body mass index (BMI) [Ratio] 29.3 kg/m2 29.3 k g/m2 [facility] ([facility]) Body weight 155.00 [lb_av] 155.00 [lb_av] MEDEN T ([facility]) Body height 62 [in_i] 62 [in_i] MEDENT ([facility]) 5'2" Body mass index (BMI) [Ratio] 28.3 kg/m2 28.3 k g/m2 [facility] ([facility]) Systolic blood pressure--sitting 110 mm[Hg] 110 mm[Hg] [facility] ([facility]) Diastolic blood pressure--sitting 66 mm[Hg] 66 mm[Hg] [facility] ([facility]) Systolic blood pressure--standing 106 mm[Hg] 10 6 mm[Hg] [facility] ([facility]) Diastolic blood pressure--standing 66 mm[Hg] 6 6 mm[Hg] MEDENT ([facility]) Patient Treatment Plan of Care Planned Activity Planned Date Details Description Data Source (s) Amoxicillin 875 MG / Clavulanate 125 MG Oral Tablet 08/31/20 12:00:00 AM EDT eCW1 ([facility]) Nortriptyline 50 MG Oral Capsule 06/19/2021 12:00:00 AM EDT eCW1 ([facility]) Mupirocin 20 MG/ML Topical Cream 06/19/2021 12:00:00 AM EDT eCW1 ([facility]) Polyethylene Glycol - 06/19/2021 12:00:00 AM EDT eCW1 ([facility]) Carpal Tunnel Wrist Stabilizer - 06/19/2021 12:00:00 AM EDT eCW1 ([facility]) Nortriptyline 25 MG Oral Capsule 06/19/2021 12:00:00 AM EDT eCW1 ([facility]) Mupirocin 20 MG/ML Topical Cream 06/19/2021 12:00:00 AM EDT eCW1 ([facility]) Polyethylene Glycol - 06/19/2021 12:00:00 AM EDT eCW1 ([facility]) Carpal Tunnel Wrist Stabilizer - 06/19/2021 12:00:00 AM EDT eCW1 ([facility]) Nortriptyline 25 MG Oral Capsule 06/19/2021 12:00:00 AM EDT eCW1 ([facility]) Mupirocin 20 MG/ML Topical Cream 06/19/2021 12:00:00 AM EDT eCW1 ([facility]) Polyethylene Glycol - 06/19/2021 12:00:00 AM EDT eCW1 ([facility]) Carpal Tunnel Wrist Stabilizer - 06/19/2021 12:00:00 AM EDT eCW1 ([facility]) Nortriptyline 25 MG Oral Capsule 06/19/2021 12:00:00 AM EDT eCW1 ([facility]) Mupirocin 20 MG/ML Topical Cream 06/19/2021 12:00:00 AM EDT eCW1 ([facility]) Polyethylene Glycol - 06/19/2021 12:00:00 AM EDT eCW1 ([facility]) Carpal Tunnel Wrist Stabilizer - 06/19/2021 12:00:00 AM EDT eCW1 ([facility]) Nortriptyline 25 MG Oral Capsule 06/19/2021 12:00:00 AM EDT eCW1 ([facility]) Mupirocin 20 MG/ML Topical Cream 06/19/2021 12:00:00 AM EDT eCW1 ([facility]) Polyethylene Glycol - 06/19/2021 12:00:00 AM EDT eCW1 ([facility]) Carpal Tunnel Wrist Stabilizer - 06/19/2021 12:00:00 AM EDT eCW1 ([facility]) Nortriptyline 25 MG Oral Capsule 06/19/2021 12:00:00 AM EDT eCW1 ([facility]) Mupirocin 20 MG/ML Topical Cream 06/19/2021 12:00:00 AM EDT eCW1 ([facility]) Polyethylene Glycol - 06/19/2021 12:00:00 AM EDT eCW1 ([facility]) Carpal Tunnel Wrist Stabilizer - 06/19/2021 12:00:00 AM EDT eCW1 ([facility]) Nortriptyline 25 MG Oral Capsule 06/19/2021 12:00:00 AM EDT eCW1 ([facility]) Mupirocin 20 MG/ML Topical Cream 06/19/2021 12:00:00 AM EDT eCW1 ([facility]) Polyethylene Glycol - 06/19/2021 12:00:00 AM EDT eCW1 ([facility]) Carpal Tunnel Wrist Stabilizer - 06/19/2021 12:00:00 AM EDT eCW1 ([facility]) Nortriptyline 25 MG Oral Capsule 06/19/2021 12:00:00 AM EDT eCW1 ([facility]) Mupirocin 20 MG/ML Topical Cream 06/19/2021 12:00:00 AM EDT eCW1 ([facility]) Polyethylene Glycol - 06/19/2021 12:00:00 AM EDT eCW1 ([facility]) Carpal Tunnel Wrist Stabilizer - 06/19/2021 12:00:00 AM EDT eCW1 ([facility]) Nortriptyline 25 MG Oral Capsule 06/19/2021 12:00:00 AM EDT eCW1 ([facility]) Nortriptyline 50 MG Oral Capsule 06/19/2021 12:00:00 AM EDT eCW1 ([facility]) Carpal Tunnel Wrist Stabilizer - 06/19/2021 12:00:00 AM EDT eCW1 ([facility]) Nortriptyline 25 MG Oral Capsule 06/19/2021 12:00:00 AM EDT eCW1 ([facility]) Mupirocin 20 MG/ML Topical Cream 06/19/2021 12:00:00 AM EDT eCW1 ([facility]) Polyethylene Glycol - 06/19/2021 12:00:00 AM EDT eCW1 ([facility]) Meclizine Hydrochloride 25 MG Oral Tablet 01/16/2021 12:00:00 AM ES T eCW1 ([facility]) Meclizine Hydrochloride 25 MG Oral Tablet 01/16/2021 12:00:00 AM ES T eCW1 ([facility]) Meclizine Hydrochloride 25 MG Oral Tablet 01/16/2021 12:00:00 AM ES T eCW1 ([facility]) Meclizine Hydrochloride 25 MG Oral Tablet 01/16/2021 12:00:00 AM ES T eCW1 ([facility]) Meclizine Hydrochloride 25 MG Oral Tablet 01/16/2021 12:00:00 AM ES T eCW1 ([facility]) Meclizine Hydrochloride 25 MG Oral Tablet 01/16/2021 12:00:00 AM ES T eCW1 ([facility]) Meclizine Hydrochloride 25 MG Oral Tablet 01/16/2021 12:00:00 AM ES T eCW1 ([facility]) Meclizine Hydrochloride 25 MG Oral Tablet 01/16/2021 12:00:00 AM ES T eCW1 ([facility]) tizanidine 4 MG Oral Tablet 01/08/2021 12:00:00 AM EST eCW1 ([facility]) Amoxicillin 500 MG Oral Capsule 12/21/2020 12:00:00 AM EST eCW1 ([facility]) Levofloxacin 250 MG Oral Tablet 12/21/2020 12:00:00 AM EST eCW1 ([facility]) pantoprazole 40 MG Delayed Release Oral Tablet 12/21/2020 12:00:00 AM EST eCW1 ([facility]) Amoxicillin 500 MG Oral Capsule 12/21/2020 12:00:00 AM EST eCW1 ([facility]) Levofloxacin 250 MG Oral Tablet 12/21/2020 12:00:00 AM EST eCW1 ([facility]) pantoprazole 40 MG Delayed Release Oral Tablet 12/21/2020 12:00:00 AM EST eCW1 ([facility]) Amoxicillin 500 MG Oral Capsule 12/21/2020 12:00:00 AM EST eCW1 ([facility]) Levofloxacin 250 MG Oral Tablet 12/21/2020 12:00:00 AM EST eCW1 ([facility]) pantoprazole 40 MG Delayed Release Oral Tablet 12/21/2020 12:00:00 AM EST eCW1 ([facility]) Amoxicillin 500 MG Oral Capsule 12/21/2020 12:00:00 AM EST eCW1 ([facility]) Levofloxacin 250 MG Oral Tablet 12/21/2020 12:00:00 AM EST eCW1 ([facility]) pantoprazole 40 MG Delayed Release Oral Tablet 12/21/2020 12:00:00 AM EST eCW1 ([facility]) Augmentin 875-125 MG 12/04/2020 12:00:00 AM EST eCW1 ([facility]) Augmentin 875-125 MG 12/04/2020 12:00:00 AM EST eCW1 ([facility]) Robinin 875-125 MG 12/04/2020 12:00:00 AM CINDY Reddy1 ([facility])
[2021-09-05] MEDS ORDERED: AUGM875T28 PO (13:59)
[2021-09-05] MEDS ORDERED: CYCL5TAB PO (13:59)
[2021-09-05] MEDS ORDERED: SUCR1TA PO (13:59)
[2021-09-05] MEDS ORDERED: MUPI30CR TOP (13:59)
[2021-09-05] MEDS ORDERED: HOME MED LIST COMPLETE! XX SCH (14:00)
[2021-09-05] MEDS ORDERED: COMBIVENT RESPIMAT 100-20MCG INHALER 4GM INH PRN (14:10)
[2021-09-05 14:24] LABS: RSV AMPLIFICATION NEGATIVE (NEGATIVE)
[2021-09-05 15:51] LABS: FREE T4 1.08 NG/DL (0.76-1.46)
[2021-09-05 16:00] VITALS: BP 124/77
[2021-09-05] MEDS ORDERED: GLUCOSE 4GM CHEW TABLET PO PRN (16:00)
[2021-09-05] MEDS ORDERED: DEXTROSE 50% 50 ML SYRINGE IV PRN (16:00)
[2021-09-05] MEDS ORDERED: GLUCAGON INJ 1MG VIAL SC PRN (16:00)
[2021-09-05] MEDS: HumaLOG INSULIN (NovoLOG) PER UNIT SC SCH (17:30)
[2021-09-05] MEDS: SUCRALFATE 1 GM TAB PO SCH (17:40)
[2021-09-05] MEDS ORDERED: SLF 3 ML SYR IV PRN (17:40)
[2021-09-05] MEDS ORDERED: RIVAROXABAN 20 MG TAB (XARELTO) PO SCH (18:00)
[2021-09-05] MEDS ORDERED: ACETAMINOPHEN TAB 650MG DOSE (2X325MG) PO PRN (18:15)
[2021-09-05] MEDS ORDERED: METOPROLOL 5 MG/5 ML VIAL IV ONE (18:30)
[2021-09-05 18:42] VITALS: BP 116/81
[2021-09-05 20:00] VITALS: BP 101/55
[2021-09-05] MEDS ORDERED: CYANOCOBALAMIN 500 MCG TAB PO SCH (21:00)
[2021-09-05] MEDS ORDERED: MAGNESIUM OXIDE 400MG TAB (MAG-OX) PO SCH (21:00)
[2021-09-05] MEDS ORDERED: FERROUS SULFATE 325MG TAB PO SCH (21:00)
[2021-09-05] MEDS ORDERED: ATORVASTATIN 20 MG TAB PO SCH (21:00)
[2021-09-05] MEDS ORDERED: NORTRIPTYLINE 25 MG CAP PO SCH (21:00)
[2021-09-05] MEDS: METOPROLOL TART 25 MG TABLET PO SCH (21:00)
[2021-09-05] MEDS ORDERED: HumaLOG INSULIN (NovoLOG) PER UNIT SC SCH (21:00)
[2021-09-05] MEDS ORDERED: LORATADINE 10 MG TAB PO SCH (21:00)
[2021-09-05] MEDS ORDERED: PANTOPRAZOLE 40MG TAB (PROTONIX) PO SCH (21:00)
[2021-09-05] MEDS: MECLIZINE 25 MG TABLET PO SCH (21:02)
[2021-09-05] MEDS: SLF 3 ML SYR IV SCH (21:03)
[2021-09-06] VITALS: BP 95/58
[2021-09-06 02:50] LABS: HEMATOCRIT 41.9 % (36.0-47.0); HEMOGLOBIN 12.9 g/dl (12.0-15.5); MEAN CORPUSCULAR HEMOGLOBIN 29.2 pg (27.0-33.0); MEAN CORPUSCULAR HGB CONC 30.8 g/dl (32.0-36.5); MEAN CORPUSCULAR VOLUME 94.8 fl (80.0-96.0); PLATELET COUNT, AUTOMATED 275 10^3/uL (150-450); RED BLOOD COUNT 4.42 10^6/uL (4.00-5.40); WHITE BLOOD COUNT 5.4 10^3/uL (4.0-10.0)
[2021-09-06 03:24] LABS: BLOOD UREA NITROGEN 11 MG/DL (7-18); CALCIUM LEVEL 8.7 MG/DL (8.5-10.1); CARBON DIOXIDE LEVEL 30 MEQ/L (21-32); CHLORIDE LEVEL 108 MEQ/L (98-107); CREATININE FOR GFR 0.72 MG/DL (0.55-1.30); GLOMERULAR FILTRATION RATE > 60.0 (>51); GLUCOSE, FASTING 83 MG/DL (70-100); MAGNESIUM LEVEL 2.1 MG/DL (1.8-2.4); POTASSIUM SERUM 4.5 MEQ/L (3.5-5.1); SODIUM LEVEL 141 MEQ/L (136-145)
[2021-09-06 03:41] VITALS: BP 95/56
[2021-09-06 05:46] VITALS: BP 95/56
[2021-09-06] MEDS: METOPROLOL TART 25 MG TABLET PO SCH (05:46)
[2021-09-06] MEDS: SLF 3 ML SYR IV SCH (05:46)
--- NOTE | 2021-09-06 07:29 | ECGEPIP ---
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
[2021-09-06] MEDS: HumaLOG INSULIN (NovoLOG) PER UNIT SC SCH (07:30)
[2021-09-06 08:00] VITALS: BP 109/64
[2021-09-06] MEDS: SUCRALFATE 1 GM TAB PO SCH (08:05)
[2021-09-06] MEDS ORDERED: DIGO0.253 PO (08:16)
[2021-09-06] MEDS ORDERED: MIRALAX *UNIT DOSE* 17GM PACKET PO SCH (09:00)
[2021-09-06] MEDS ORDERED: DIGOXIN 0.25 MG TAB PO SCH (09:00)
[2021-09-06] MEDS: MECLIZINE 25 MG TABLET PO SCH (09:19)
--- NOTE | 2021-09-06 14:34 | DS.PDOC ---
Discharge Summary General Date of Admission Sep 05, 2021 at 13:12 Date of Discharge 09/06/21 Discharge Summary DISCHARGE DIAGNOSES: 1. Atrial fibrillation with rapid ventricular response 2. Subclinical hypothyroidism COMPLICATIONS/CHIEF COMPLAINT: Atrial Flutter W/ Rapid Ventricular Response. HOSPITAL COURSE: Ms. Chowdhury, is a 56-year-old female presented emergency room department with complaints of an elevated heart rate associated with palpitations, nausea and diaphoresis. In the emergency room department she was noted to be in atrial flutters/fib and was admitted for further management. Her primary bar pointer is Dr. Hdez was contacted and recommended for the patient to be loaded with digoxin and to continue with 250 MCG daily until her next follow-up with him in the office. At the time of discharge, her heart rate was controlled and her symptoms had resolved. Of note, EKG did not show any ST/T wave changes and troponin trend was negative. Past medical history includes: Atrial fibrillation, tachybradycardia syndrome, wtn-ndztsjn-xkhaeqouu diabetes mellitus, peripheral neuropathy, peripheral edema secondary venous insufficiency, NAFLD, hyperlipidemia, allergic rhinitis, ce rvical degenerative joint disease, TIA, tubulovillous adenoma, obstructive sleep apnea, lower GI bleed, iron deficiency anemia and B12 deficiency, and osteopenia. She also has a history of Ever-en-Y gastric bypass. DISCHARGE MEDICATIONS: Please see below. ALLERGIES: Please see below. PHYSICAL EXAMINATION ON DISCHARGE: VITAL SIGNS: Please see below. General: Lying in bed, no acute distress Head/Neck/Throat: Trachea midline, mucous membranes moist Eyes: Sclera anicteric, PERRLA Thorax: Normal respiratory effort on room air, lungs clear to auscultation bilaterally, no wheezes/rales/rhonchi Cardiovascular: Normal rate, regular rhythm, normal S1, S2; no S3, S4, rubs/gallops/murmurs Abdomen: Bowel sounds present, soft/nontender/nondistended Genitourinary: No CVA tenderness, no Morales in place Musculoskeletal: Moving all extremities, no edema Skin: Warm, dry Neurologic: AAOx3, speech fluent and goal-directed, no focal deficits, grossly intact LABORATORY DATA: Please see below. Please IMAGING: PORTABLE CHEST X-RAY FINDINGS: The mediastinum and cardiac silhouette are stable and within normal limits for portable technique. The lung mccarthy are clear without acute consolidation, effusion, or pneumothorax. Skeletal structures are intact. IMPRESSION: No acute cardiopulmonary process appreciated. PROGNOSIS: Good ACTIVITY: As tolerated DIET: Appropriate for her gastric bypass DISPOSITION: 01 Home, Self-Care. ITEMS TO FOLLOWUP ON ON OUTPATIENT: 1. Follow with bar pointer within 5-7 2. Follow-up with primary care physician within 5 to DISCHARGE CONDITION: Stable TIME SPENT ON DISCHARGE: 25 minutes. Vital Signs/I&Os Vital Signs Date Time Temp Pulse Resp B/P (MAP) Pulse Ox O2 Delivery O2 Flow Rate FiO2 09/06/21 08:05 73 09/06/21 08:00 96.9 18 109/64 (79) 92 Room Air I&O- Last 24 Hours up to 6 AM 09/06/21 06:00 Intake Total 640 ml Output Total 200 ml Balance 440 ml Laboratory Data Labs 24H Laboratory Tests 2 09/05/21 17:00: Bedside Glucose (Misc Panel) 112H 09/05/21 19:10: Troponin I 0.04# 09/05/21 20:58: Bedside Glucose (Misc Panel) 139H 09/05/21 22:34: Troponin I 0.03# 09/06/21 02:40: Nucleated Red Blood Cells % (auto) 0.0, Anion Gap 3L, Glomerular Filtration Rate > 60.0, Calcium Level 8.7, Phosphorus Level 4.0, Magnesium Level 2.1, Troponin I 0.04# CBC/BMP Laboratory Tests 09/06/21 02:40 FSBS Laboratory Tests Test 09/05/21 17:00 09/05/21 20:58 Range/Units Bedside Glucose (Misc Panel) 112 139 70-105 MG/DL Discharge Medications Scheduled Atorvastatin Calcium (Atorvastatin Calcium) 20 Mg Tablet, 20 MG PO QPM, (Reported) Biotin (Biotin) 5,000 Mcg Cap, 5,000 MCG PO QPM, (Reported) Calcium Carbonate/Vitamin D3 (Calcium 600 + Vit D 400 Softgl) 1 Each Capsule, 1 CAP PO QPM, (Reported) Cholecalciferol (Vitamin D3) (Vitamin D3) 125 Mcg Tablet, 125 MCG PO QPM, (Reported) Cyanocobalamin (Vitamin B-12) (Vitamin B-12) 500 Mcg Tab, 500 MCG PO QPM, (R eported) Digoxin (Digoxin) 250 Mcg Tablet, 0.25 MG PO DAILY Ferrous Sulfate (Ferrous Sulfate) 325 Mg Tablet.dr, 325 MG PO QPM, (Reported) Loratadine (Claritin) 10 Mg Cap, 10 MG PO QPM, (Reported) Magnesium Oxide (Magnesium Oxide) 400 Mg Tablet, 400 MG PO QPM, (Reported) Meclizine HCl (Meclizine HCl) 25 Mg Tablet, 25 MG PO BID, (Reported) Metformin HCl (Metformin HCl) 500 Mg Tablet, 500 MG PO BID, (Reported) Multivitamin (Multivitamins) 1 Each Tablet, 2 TAB PO QPM, (Reported) Mupirocin (Mupirocin) 30 Gm Cream..g., 1 APPLIC TOP TID, (Reported) APPLIES TO ARM Nortriptyline HCl (Nortriptyline HCl) 50 Mg Capsule, 50 MG PO QPM, (Reported) [place]-3 Fatty Acids/Fish Oil (Fish Oil 1,000 mg Capsule) 1 Each Capsule, 2,000 MG PO QPM, (Reported) Pantoprazole Sodium (Pantoprazole Sodium) 40 Mg Tablet.dr, 40 MG PO QPM, (Reported) Polyethylene Glycol 3350 (Miralax) 119 Gm Powder, 17 GM PO DAILY, (Reported) Rivaroxaban (Xarelto) 20 Mg Tablet, 20 MG PO QPM, (Reported) Sucralfate (Sucralfate) 1 Gm Tablet, 1 GM PO TID, (Reported) Scheduled PRN Diclofenac Sodium (Diclofenac Sodium) 1.5% 150ML Drops, 40 DROP TOP QID PRN for PAIN, (Reported) APPLIES TO KNEES AND HIPS Fluticasone Propionate (Fluticasone Propionate) 16 Gm [place].susp, 2 SPRAY NARES DAILY PRN for CONGESTION, (Reported) Ipratropium/Albuterol Sulfate (Combivent Respimat 20-100 Mcg) 1 Aer Aer, 1 PUFF INH QID PRN for WHEEZING, (Reported) Allergies Coded Allergies: No Known Allergies (Unverified , 02/20/21) AYESHA CLAROS M.D. Sep 06, 2021 14:28
--- NOTE | 2021-09-06 19:18 | ECGEPIP ---
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
[2021-09-07] MEDS ORDERED: FLUBLOK(EGG FREE)(QUAD)INFLUENZA VACC 0.5ML SYRINGE 18YRS & OLDER IM ONE (09:00)
== END 2021-09-06 10:47 | disposition home or self-care (01) | DRG 201 ==
LOC: M ED 10:28 → M ED INP 13:12 → ENRESERV 14:39 → M PCU 15:54
PROVIDERS: ADMIT Internal Medicine; ATTEND Internal Medicine
DX: I48.91 Unspecified atrial fibrillation (principal); E11.40 Type 2 diabetes mellitus with diabetic neuropathy, unspecified; I49.5 Sick sinus syndrome; J44.9 Chronic obstructive pulmonary disease, unspecified; D50.9 Iron deficiency anemia, unspecified; E02 Subclinical iodine-deficiency hypothyroidism; E78.5 Hyperlipidemia, unspecified; Z86.73 Personal history of transient ischemic attack (TIA), and cerebral infarction without residual deficits; G47.33 Obstructive sleep apnea (adult) (pediatric); Z79.899 Other long term (current) drug therapy; E53.8 Deficiency of other specified B group vitamins; Z87.891 Personal history of nicotine dependence; K21.9 Gastro-esophageal reflux disease without esophagitis; I48.92 Unspecified atrial flutter

== ENCOUNTER 2021-09-15 20:30 | Emergency (ER) | payer BC ==
[~2021-09-15] VITALS: Ht 154.9 cm; Wt 77.3 kg
[~2021-09-15 20:30] MED LIST changes: +AUGM875T28 PO; +CYCL5TAB PO; +DIGO0.253 PO; +FERR325T3 PO; +MUPI2OI TOP; +MUPI30CR TOP; +NORT50CA PO; +PANT40TA29 PO; +SUCR1TA PO
--- OUTSIDE RECORDS SUMMARY | 2021-09-15 20:39 | CCD | Continuity of Care Document ---
Author Author Cordelia SOLIS PA Organization Unknown Address [address] [place] [address], [place] [address] Phone [phone] Care Team Providers Care Youth Pastor Name Role Phone Chaz Ruiz MD AUTM [phone] Gigi Ambrosio DO AUTM [phone] Gigi Lopez MD AUTM [phone] oTmmie Crabtree MD AUTM [phone] Problems Active Problems Provider Date Atrial flutter Ky Hdez MD Onset: 02/27/2017 Precordial pain Ky Hdez MD Onset: 02/27/2017 Dyspnea Ky Hdez MD Onset: 02/27/2017 Electrocardiogram abnormal Ky Hdez MD Onset: 2016 Syncope and collapse Ky Hdez MD Onset: 02/27/2017 Body mass index 30+ - obesity Ky Hdez MD Onset: 04/2017 Cardiomegaly Ky Hdez MD Onset: 02/27/2017 Disturbance in sleep behavior Ky Hdez MD Onset: 04/2017 Mitral valve disorder Ky Hdez MD Onset: 07/29/2017 Obstructive sleep apnea syndrome Ky Hdez MD Onset: 07/29/2017 Dizziness and giddiness Ky Hdez MD Onset: 7 Preoperative cardiovascular examination Ky dHez MD Onset: 07/29/2017 Dietary management surveillance BENJIE Kirby Onset: 06/03/2018 Social History Type Date Description Comments Sex Unknown ETOH Use Does not consume alcohol Tobacco Use Start: Unknown End: Unknown Patient is a former smoker smoked for 20 years, up to 2ppd, quit in 2002 Smoking Status Reviewed: 10/15/21 Patient is a former smoker sm oked for 20 years, up to 2ppd, quit in 2002 Exercise Type/Frequency Walks daily Exercise Type/Frequency Does housework twice a w [place] Exercise Type/Frequency Does yardwork sporadical ly Exercise Limitations Joint Pain Exercise Limitations Shortness Of Breath Allergies and adverse reactions Description No Known Drug Allergies Medications Active Medications SIG Qnty Indications Ordering Provide r Date Lasix 20mg Tablets take 1 by mouth in the morning 90tabs R06.02 Ky Hdez MD 09/07/2021 Digoxin 250mcg Tablets 1 by mouth every day 90tabs I48.3 Ky Hdez MD 09/06/2021 Sucralfate 1gm Tablets 1 by mouth three times daily Gigi Lopez MD 09/06/2021 Xarelto 20mg Tablets 1 by mouth every day Chaz Ruiz MD 09/06/2021 Polyethylene Glycol 1000 Powder mix 17 g in 4-8 oz fluid daily Unknown 09/06/2021 Pantoprazole Sodium 40mg Tablets D R 1 by mouth every day Gigi Lopez MD 09/06/2021 Nortriptyline HCL 50mg Capsules 1 by mouth at bedtime daily Chaz Ruiz MD 09/06/2021 Mupirocin Calcium 2% Cream apply 1 application topically three times daily to arms Chaz Ruiz MD 09/06/2021 Meclizine HCL 25mg Tablets 1 by mouth twice daily as needed Chaz Ruiz MD 09/06/2021 Loratadine 10mg Tablets 1 by mouth every day Unknown 09/06/2021 Fluticasone Propionate 50mcg/Act Suspension 1 spray each nostril daily as needed Chaz Fuller MD 09/06/2021 Ferrous Sulfate 325mg Tablets 1 by mouth every day Chaz Ruiz MD 09/06/2021 Diclofenac Sodium 1.5% Solution apply 40 drops to knees and hips 4 times daily as needed Chaz Ruiz MD 09/06/2021 Vitamin B-12 500mcg Tablets 1 by mouth every day Chaz Ruiz MD 09/06/2021 Calcium 600/Vitamin D 992-294ms-Wnjs Tablets 1 by mouth daily Unknown 09/06/2021 Biotin 5000 5mg Capsules 1 by mouth every day Unknown 09/06/2021 Atorvastatin Calcium 20mg Tablets 1 by mouth every night at bedtime Unknown Vitamin D-3 5000Unit Tablets 1 by mouth every day Unknown 06/02/2018 Multivitamin Adult Tablets 2 by mouth every day Unknown 2017 Fish Oil Burp-Less 1000mg Capsules 2 by mouth every day Unknown 2017 Magnesium-Oxide 400(241.3mg) mg Ta blets one daily Unknown 02/26/2017 Combivent Respimat 20-100mcg/Act A erosol 1 puff as needed Chaz Ruiz MD 04/24/2014 Metformin HCL 500mg Tablets 1 by mouth twice a day Unknown Immunizations Description No Information Available Vital Signs Date Vital Result Comment 09/07/2021 12:59pm Weight 172.00 lb Home Weight 170lb Height 62 inches 5'2" BMI (Body Mass Index) 31.5 kg/m2 Heart Rate 73 /min BP Systolic Sitting 126 mmHg Ra, large cuff BP Diastolic Sitting 80 mmHg Ra, large cuff 07/12/2020 10:15am Weight 155.00 lb Home Weight 155lb home weight Height 62 inches 5'2" BMI (Body Mass Index) 28.3 kg/m2 BP Systolic Sitting 110 mmHg BP Diastolic Sitting 66 mmHg BP Systolic Standing 106 mmHg BP Diastolic Standing 66 mmHg Procedures Date Code Description Status 09/07/2021 67423 Office/Outpatient Established Mo d MDM 30-39 Min Completed 09/07/2021 43064 ECG 12-Lead Completed Medical Devices Description No Information Available Encounters Type Date Location Provider Dx Diagnosis Office Visit 09/07/2021 1:00p Main Office BENJIE Bodns I48 .3 Typical atrial flutter R06.02 Shortness of breath M79.603 Pain in arm, unspecified R55 Syncope and collapse G47.33 Obstructive sleep apnea (steve lt) (pediatric) R94.31 Abnormal electrocardiogram [ ECG] [EKG] E66.8 Other obesity Z71.3 Dietary counseling and surve illance Assessments Date Code Description Provider 09/07/2021 I48.3 Typical atrial flutter BENJIE Bonds 09/07/2021 R06.02 Shortness of breath BENJIE Bonds 09/07/2021 M79.603 Pain in arm, unspecified BENJIE Dietz ra 09/07/2021 R55 Syncope and collapse BENJIE Alexis 09/07/2021 G47.33 Obstructive sleep apnea (adult) (pediatric) BENJIE Bonds 09/07/2021 R94.31 Abnormal electrocardiogram [ECG] [EKG] BENJIE Bonds 09/07/2021 E66.8 Other obesity BENJIE Flores Cha, se 09/07/2021 Z71.3 Dietary counseling and surveilla nce BENJIE Bonds Plan of Treatment Future Appointment(s):* 10/16/2021 8:00 am - BENJIE Bonds at Main Office * 12/04/2021 10:00 am - ECHO at Main Office * 10/09/2021 9:20 am - Stress Nuclear/Reg Treadmill at Main Office 09/07/2021 - BENJIE Bonds* I48.3 Typical atrial flutter* Recommendations:* Continue digoxin and Xarelto Please alert the office with any worsening palpitations or episodes of tachycardia Patient recently wore an event monitor and does not wish to have an additional monitor at this time * R06.02 Shortness of breath* New Medication:* Lasix 20 mg - take 1 by mouth in the morning * New Labs:* CMP & CBC, Scheduled: 10/08/21 * NT Probnp QN Ser/Plas, Scheduled: 10/08/21 * New Xrays:* US Echocardiogram Transthoracic Stress, Ordered: 09/07/21 * Recommendations:* Please start low dose Lasix Please obtain labs prior to next appointment Echocardiogram ordered for further evaluation Will obtain a copy of her recent chest x-ray * M79.603 Pain in arm, unspecified* New Orders:* Treadmill, Ordered: 09/07/21 * Recommendations:* Treadmill stress test has been ordered for further evaluation Advised patient to please seek medical attention with the onset of any worsening arm/chest discomfort * R55 Syncope and collapse* New Xrays:* US Duplex Doppler Carotid Arteries Bilateral, Ordered: 09/07/21 * Recommendations:* Echocardiogram Doppler and carotid ultrasound ordered for further evaluation Advised patient to seek medical attention with the onset of any additional episodes of syncope * G47.33 Obstructive sleep apnea (adult) (pediatric)* Recommendations:* Reinforced the consistent use of therapy will assist in blood pressure reduction and promote nocturnal blood pressure dipping patterns. Negative effects of hypoxia during sleep were reviewed including impaired daytime cognition and level of alertness. * R94.31 Abnormal electrocardiogram [ECG] [EKG]* Recommendations:* No further evaluation is needed at this time. * E66.8 Other obesity * Z71.3 Dietary counseling and surveillance* Recommendations:* Recommended for patient to follow a more whole food diet. Advised patient to avoid overly processed foods and packaged foods. Advised patient to avoid sodas, juices and other liquid calories. Recommended at least 30 minutes of exercise 3 days a week. * All * Follow up:* CV in 1-1.5 months Functional Status Functional Condition Comment Date Status Independent with all ADL's Activ e Mental Status Description No Information Available Referrals Description No Information Available
--- OUTSIDE RECORDS SUMMARY | 2021-09-15 20:39 | CCD | Continuity of Care Document ---
Author Author Cordelia SOLIS PA Organization Unknown Address [address] [place] [address], [place] [address] Phone [phone] Care Team Providers Care Volunteer Recruiter Name Role Phone Chaz Ruiz MD AUTM [phone] Gigi Ambrosio DO AUTM [phone] Gigi Lopez MD AUTM [phone] Tommie Crabtree MD AUTM [phone] Problems Active Problems Provider Date Atrial flutter [...] MD Onset: 7 Preoperative cardiovascular examination Ky Hdez MD Onset: 07/29/2017 Dietary management surveillance BENJIE [...] Exercise Type/Frequency Does housework twice a w [place] Exercise Type/Frequency Does yardwork sporadical ly Exercise [...] Chaz Ruiz MD 09/06/2021 Calcium 600/Vitamin D 054-055ge-Yviw Tablets 1 by mouth daily Unknown 09/06/2021 [...] mmHg Procedures Date Code Description Status 09/07/2021 12354 Office/Outpatient Established Mo d MDM 30-39 Min Completed 09/07/2021 11949 ECG 12-Lead Completed Medical Devices Description No Information Available Encounters Type Date Location Provider Dx Diagnosis Office Visit 09/07/2021 1:00p Main Office BENJIE Bonds I48 .3 Typical atrial flutter R06.02 Shortness of breath M79.603 Pain in arm, unspecified R55 Syncope and collapse G47.33 Obstructive sleep apnea (steve lt) (pediatric) R94.31 Abnormal electrocardiogram [ ECG] [EKG] E66.8 Other obesity Z71.3 Dietary counseling and surve illance Assessments Date Code Description Provider 09/07/2021 I48.3 Typical atrial flutter BENJIE Bonds 09/07/2021 R06.02 Shortness of breath BENIJE Bonds 09/07/2021 M79.603 Pain in arm, unspecified [...]
--- OUTSIDE RECORDS SUMMARY | 2021-09-15 20:39 | CCD | Continuity of Care Document ---
Author Author Cordelia SOLIS PA Organization Unknown Address [address] [place] [address], [place] [address] Phone [phone] Care Team Providers Care Lawyer Name Role Phone Chaz Ruiz MD AUTM [phone] Gigi Ambrosio DO AUTM [phone] Gigi Lopez MD AUTM [phone] Tommie Crabtree MD AUTM [phone] Problems Active Problems Provider Date Atrial flutter [...] Exercise Type/Frequency Does housework twice a w [place] Exercise Type/Frequency Does yardwork sporadical ly Exercise [...] Chaz Ruiz MD 09/06/2021 Calcium 600/Vitamin D 148-652jp-Npzk Tablets 1 by mouth daily Unknown 09/06/2021 [...] mmHg Procedures Date Code Description Status 09/07/2021 41152 Office/Outpatient Established Mo d MDM 30-39 Min Completed 09/07/2021 21506 ECG 12-Lead Completed Medical Devices Description No [...]
--- OUTSIDE RECORDS SUMMARY | 2021-09-15 20:39 | CCD ---
Author Author [facility] Organization [facility] Address Unknown Phone Unavailable Care Team Providers Care Roller Die Cutting Machine Operator Name Role Phone Celine Brooks Unavailable PROBLEMS Type Condition ICD9-CM Code KJR22-FU Code Onset Dates Condition S tatus W/U Status Risk SNOMED Code Notes Problem S/P gastric bypass Z98.84 Active confirmed 6 13771436 Problem Osteoarthritis, hand M19.049 Active confirmed 91742067 Problem BPPV (benign paroxysmal positional vertigo) H81.10 Active confirmed 802162372 Problem Vitamin D deficiency E55.9 Active confirmed 66494055 Problem Breast cancer screening Z12.39 Active confirmed 829064223 Problem Tubulovillous adenoma of colon D12.6 Active confir med 57305652 Problem Eczema of both hands L30.9 Active confirmed 681515652 Problem 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 Act luz confirmed 188713114540576 Problem Mixed hyperlipidemia E78.2 Active confirmed 078426586 Problem Primary osteoarthritis, right wrist M19.031 Acti ve confirmed 329553514664113 Problem DJD (degenerative joint disease), lumbar M47.816 Active confirmed 045125188 Problem Osteopenia M85.80 Active confirmed 144551201 Problem Allergic rhinitis, unspecified J30.9 Active confir med 06365349 Problem Impingement syndrome of right shoulder M75.41 A ctive confirmed 47236747392266725 Problem Impingement syndrome of left shoulder M75.42 Ac tive confirmed 124198524441968 Problem Diabetes mellitus type 2 with complications E11.8 Active confirmed 643235491 Problem DONG (obstructive sleep apnea) G47.33 Active confirm ed 26283770 Problem Recurrent sinusitis J32.9 Active confirmed 172656005 Problem B12 deficiency E53.8 Active confirmed 37038 4004 Problem Osteoarthritis of spine with radiculopathy, lumbar region M47.26 Active confirmed 647850937 Problem Primary osteoarthritis of both knees M17.0 Act luz confirmed 640457166 Problem Nephrolithiasis N20.0 Active confirmed 9557 0007 Problem 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 Active confirmed 543052185 Problem Constipation, chronic K59.09 Active confirmed 321685133 Problem Bilateral carpal tunnel syndrome G56.03 Active conf irmed 08375491 Problem Mitral valve disease I05.9 Active confirmed 55003430 Problem Cervical spondylosis M47.812 Active confirmed 852843019 Problem IT band syndrome, right M76.31 Active confirmed 217778208 Problem Paroxysmal atrial fibrillation I48.0 Active confir med 385706565 Problem Iron deficiency anemia, unspecified iron deficiency an emia type D50.9 Active confirmed 93086132 Problem Peripheral neuropathy G62.9 Active confirmed 767892041 Problem Obstructive uropathy N13.9 Active confirmed 5487296 Problem Colon cancer screening Z12.11 Active confirmed 501341673 ALLERGIES No Known Allergies ENCOUNTERS from 1965 to 2021-09-04 Encounter Location Date Provider Diagnosis [place] [address] [facility] [phone] [place] [address] 08 Aug, 2021 Celine Brooks Cervicogenic headache R51.9 and Bilateral acute otitis media H66.93 IMMUNIZATIONS Vaccine Route Administration Date Status COVID-19 dose #2 given elsewhere Unspecified IM Intramuscular Ap 2020 Administered Influenza 18 yrs & older [...] Education Language: Question Answer Notes Languages spoken: Macedonian Sabianism: Question Answer Notes Sabianism 06 Alevism Sexual Hx: Question Answer Notes Had sex [...] FOR REFERRAL No Information VITAL SIGNS Weight 159 lbs Aug, Height 62 in Aug, BMI 29.08 kg/m2 Aug, Heart Rate 82 /min Aug, Respiratory Rate 20 /min Aug, Temperature 97.2 degrees Fahrenheit Aug, Oximetry 98 Aug, Blood pressure systolic 120 mm Hg Aug, Blood pressure diastolic 80 mm Hg Aug, MEDICATIONS Medication SIG (Take, Route, Frequency, Duration) Notes Start Da te End Date Status Nortriptyline HCl 50 MG 1 capsule Orally every morning for 30 days Active Polyethylene Glycol - 17 gm orally in 8 oz liquid daily for 30 Days Active Cyanocobalamin 500 MCG 1 tablet Orally Once a day for 90 day(s) Active Atorvastatin Calcium 20 MG 1 tablet Orally Once a day for 90 day(s) Active Mag-Ox 400 400 mg 1 tab(s) orally Once a day Active [facility] Fluticasone Propionate 50 MCG/ACT 2 sprays in each nostril Nasally every morning for 90 day(s) Active Mupirocin Calcium 2 % 1 application Externally bid to arm le sions for 10 day(s) May, Active Multivital _ 1 tab(s) Orally Once a day Active Cholecalciferol 5000 UNIT 1 capsule Orally Once a day for 90 day(s) Active Blood Glucose Test - as directed one touch verio IQ E11.8 once daily Active Potassium Citrate ER 10 MEQ (1080 MG) 1 tablet with me als Orally Three times a day Active Cyclobenzaprine HCl 5 MG 1 tablet Orally Three times a day as needed muscle spasm for 90 day(s) Active Diclofenac Sodium 1.5 % 10drops to b knees Transderm al Four times a day for 90 day(s) Active Zofran ODT 4 mg 1 tablet Orally four times daily as needed N/V Active metFORMIN HCl 500 MG 1 tablet Orally AC BID for 90 day(s) Active Biotin 5000 MCG 1 capsule Orally Once a day for 30 day(s) Active Cinnamon 500 MG as directed Orally A ctive Meclizine HCl 25 MG 1 tablet as needed Orally BID for 30 day(s) Active Carpal Tunnel Wrist Stabilizer - as directed _ at bedtime, G56 f or 99 days May, Active Ferrous Sulfate 325 (65 Fe) MG 1 tablet Orally every other day f or 90 day(s) Active Calcium 600 + D 600-400 MG-UNIT 1 tablet Orally Twice a day Active Claritin 10 MG 1 tablet Orally Once a day for 30 day(s) Active Pantoprazole Sodium 40 MG 1 tablet Orally Once a day for 30 Days Active Polyethylene Glycol - 17 gm orally in 8 oz liquid daily for 30 D ays May, Active OneTouch Delica Plus [id number] - USE DIRECTED DAILY Active Rivaroxaban 20 MG 1 tablet with food Orally Once a day for 90 day(s) Active Lancets - as directed one touch verio IQ E11.8 Daily for 90 days Aug, Active Amoxicillin-Pot Clavulanate 875-125 MG 1 tablet Orally every 12 hrs for 10 day(s) Aug, Active Clobetasol Propionate 0.05 % 1 application to affected area Externally Twice a day x 3 days with flare of hand rash for 90 Active Milk of Magnesia 400 MG/5ML 30 ml Orally before bedtime Active Acetaminophen 500 MG 1 tablets as needed Orally every 6 hrs Active PROCEDURES No Information RESULTS No Results REASON FOR VISIT recheck headaches MEDICAL (GENERAL) HISTORY Type Description Date Medical [...] thais dysfx, LVEF 60-01/15/20 TTE-Antecol Surgical History [facility] Surgical History tonsillectomy Surgical History ear surgery Surgical History Surgical History lap gb-Shahid 07/07/15 Surgical History CYSTOSCOPY 01/15/2019 Surgical History RIGHT ELBOW SURGERY 03/09/2019 Surgical History colonoscopy-Reindl 03/14 Hospitalization History first vaginal, second c section 1981 , [address] [facility] 2002 Hospitalization [...] Notes Treatment Notes Treatm ent Clinical Notes Aug, Bilateral acute otitis media (ICD-10 - H66.93) Empiric Rx with Augmentin meds effects/side effects discussed with patient Aug, Cervicogenic headache (ICD-10 - R51.9) Relief with current regimen completed PT +/- effect contingency: MRI cervical spine PLAN OF TREATMENT Medication Medication Name Sig Start Date Stop Date Nortriptyline HCl 50 MG 1 capsule Orally every morning for 30 da ys Amoxicillin-Pot Clavulanate 875-125 MG 1 tablet Orally every 12 hrs for 10 day(s) Aug, Treatment Notes Assessment Notes Clinical Notes Bilateral acute otitis media Empiric Rx with Augmentinmeds effects/side effects discussed with patient Cervicogenic headache Relief with curren t regimencompleted PT +/- effectcontingency: MRI cervical spine Next Appt Details As c Dr. Ruiz Reason: Provider Name:Chaz Ruiz, 2021-10-25 1 1:45:00 AM, [address] [facility], , [place], [address], Insurance Providers Payer Name Payer Address Payer Phone Insured Name Patient Relati onship to Insured Coverage Start Date Coverage End Date [facility] [phone] [facility] [address] [place]
--- OUTSIDE RECORDS SUMMARY | 2021-09-15 20:39 | CCD | Continuity of Care Document ---
Author Organization Unknown Address Unknown Phone Unavailable Care Team Providers Care Landing Scaler Name Role Phone Chaz Ruiz MD AUTM [phone] Gigi Ambrosio DO AUTM [phone] Gigi Lopez MD AUTM [phone] Tommie Crabtree MD AUTM [phone] Problems Active Problems Provider Date Atrial flutter [...] 2ppd, quit in 2002 Smoking Status Reviewed: 09/07/21 Patient is a former smoker sm oked for 20 years, up to 2ppd, quit in 2002 Exercise Type/Frequency Walks daily Exercise Type/Frequency Does housework twice a w [place] Exercise Type/Frequency Does yardwork sporadical ly Exercise [...] Chaz Ruiz MD 09/06/2021 Calcium 600/Vitamin D 482-599ae-Dtrl Tablets 1 by mouth daily Unknown 09/06/2021 [...] 106 mmHg BP Diastolic Standing 66 mmHg Results Test Acquired Date Facility Test Result H/L Range Note CBC without Differential 09/06/2021 [facility] - not inter faced (315)- - White Blood Count 5.4 5.0-10.0 Red Blood Count 4.42 4.00-5.40 Platelets 275 172-450 Hemoglobin 12.9 Hematocrit 41.9 BMP 09/06/2021 [facility] - not interfaced (315)- - Calcium Ser/Plasma Mass/Vol 8.7 Sodium 141 Carbon Dioxide Ser/Plasm 30 Chloride Serum/Plasma 108 Potassium 4.5 Glucose 83 83-110 Blood Urea Nitrogen 11 7-18 Creatinine 0.72 0.6-1.0 G F R >60.0 Laboratory test finding 09/06/2021 [facility] - not interf aced (315)- - Magnesium Level 2.1 1.8-2.4 CBC without Differential 09/05/2021 [facility] - not inter faced (315)- - White Blood Count 6.5 5.0-10.0 Red Blood Count 4.56 4.00-5.40 Platelets 315 172-450 Hemoglobin 13.4 Hematocrit 42.5 BMP 09/05/2021 [facility] - not interfaced (315)- - Calcium Ser/Plasma Mass/Vol 8.9 Sodium 140 Carbon Dioxide Ser/Plasm 26 Chloride Serum/Plasma 110 Potassium 4.8 Glucose 100 83-110 Blood Urea Nitrogen 12 7-18 Creatinine 0.55 Low 0.6-1.0 G F R >60.0 Laboratory test finding 09/05/2021 [facility] - not interf aced (315)- - Magnesium Level 2.2 1.8-2.4 Troponin 0.02 Thyroid Stimulating Hormone 4.350 Free T4 1.08 NT Probnp QN Ser/Plas 852 Procedures Date Code Description Status 09/07/2021 65484 Office/Outpatient Established Mo d MDM 30-39 Min Completed 09/07/2021 97578 ECG 12-Lead Completed Medical Devices Description No [...] ra 09/07/2021 R55 Syncope and collapse BENJIE Alxeis 09/07/2021 G47.33 Obstructive sleep apnea (adult) (pediatric) [...]
--- OUTSIDE RECORDS SUMMARY | 2021-09-15 20:39 | CCD | Continuity of Care Document ---
Author Organization Unknown Address Unknown Phone Unavailable Care Team Providers Care Python Java Developer Name Role Phone Chaz Ruiz MD AUTM [phone] Gigi Ambrosio DO AUTM [phone] Gigi Lopez MD AUTM [phone] Tommie Crabtree MD AUTM [phone] Problems Active Problems Provider Date Atrial flutter [...] Exercise Type/Frequency Does housework twice a w [place] Exercise Type/Frequency Does yardwork sporadical ly Exercise [...] Tablets 1 by mouth every day Chaz Riuz MD 09/06/2021 Calcium 600/Vitamin D 657-684iu-Gjtu Tablets 1 by mouth daily Unknown 09/06/2021 [...] H/L Range Note CBC without Differential 09/06/2021 [facility] - not inter faced (315)- - White Blood Count 5.4 5.0-10.0 Red Blood Count 4.42 4.00-5.40 Platelets 275 172-450 Hemoglobin 12.9 Hematocrit 41.9 BMP 09/06/2021 [facility] - not interfaced (315)- - Calcium Ser/Plasma Mass/Vol 8.7 Sodium 141 Carbon Dioxide Ser/Plasm 30 Chloride Serum/Plasma 108 Potassium 4.5 Glucose 83 83-110 Blood Urea Nitrogen 11 7-18 Creatinine 0.72 0.6-1.0 G F R >60.0 Laboratory test finding 09/06/2021 [facility] - not interf aced (315)- - Magnesium Level 2.1 1.8-2.4 CBC without Differential 09/05/2021 [facility] - not inter faced (315)- - White Blood Count 6.5 5.0-10.0 Red Blood Count 4.56 4.00-5.40 Platelets 315 172-450 Hemoglobin 13.4 Hematocrit 42.5 BMP 09/05/2021 [facility] - not interfaced (315)- - Calcium Ser/Plasma [...] 852 Procedures Date Code Description Status 09/07/2021 89933 Office/Outpatient Established Mo d MDM 30-39 Min Completed 09/07/2021 32960 ECG 12-Lead Completed Medical Devices Description No [...]
--- OUTSIDE RECORDS SUMMARY | 2021-09-15 20:39 | CCD ---
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 Active confirmed 87668958 Problem BPPV (benign paroxysmal positional vertigo) H81.10 Active confirmed 998956925 Problem Vitamin D deficiency E55.9 Active confirmed 55688411 Problem Breast cancer screening Z12.39 Active confirmed 960242274 Problem Tubulovillous adenoma of colon D12.6 Active confir med 99675399 Problem Eczema of both hands L30.9 Active confirmed 853892192 Problem 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 Act luz confirmed 688807721748559 Problem Mixed hyperlipidemia E78.2 Active confirmed 539428807 Problem Primary osteoarthritis, right wrist M19.031 Acti ve confirmed 432683283967709 Problem DJD (degenerative joint disease), lumbar M47.816 Active confirmed 491880813 Problem Osteopenia M85.80 Active confirmed 355961362 Problem Allergic rhinitis, unspecified J30.9 Active confir med 61991859 Problem Impingement syndrome of right shoulder M75.41 A ctive confirmed 80374029976961323 Problem Impingement syndrome of left shoulder M75.42 Ac tive confirmed 299874832546816 Problem Diabetes mellitus type 2 with complications E11.8 Active confirmed 094415231 Problem DONG (obstructive sleep apnea) G47.33 Active confirm ed 52012220 Problem Recurrent sinusitis J32.9 Active confirmed 480249381 Problem B12 deficiency E53.8 Active confirmed 72010 4004 Problem Osteoarthritis of spine with radiculopathy, lumbar region M47.26 Active confirmed 100708874 Problem Primary osteoarthritis of both knees M17.0 Act luz confirmed 123818992 Problem Nephrolithiasis N20.0 Active confirmed 9557 0007 Problem 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 Active confirmed 454151183 Problem Constipation, chronic K59.09 Active confirmed 045866708 Problem Bilateral carpal tunnel syndrome G56.03 Active conf irmed 84102059 Problem Mitral valve disease I05.9 Active confirmed 60105175 Problem Cervical spondylosis M47.812 Active confirmed 525826101 Problem IT band syndrome, right M76.31 Active confirmed 192776534 Problem Paroxysmal atrial fibrillation I48.0 Active confir med 053975414 Problem Iron deficiency anemia, unspecified iron deficiency an emia type D50.9 Active confirmed 08484906 Problem Peripheral neuropathy G62.9 Active confirmed 167605297 Problem Obstructive uropathy N13.9 Active confirmed 9408396 Problem Colon cancer screening Z12.11 Active confirmed 761616838 ALLERGIES No Known Allergies ENCOUNTERS from 1965 to 2021-09-05 Encounter Location Date Provider Diagnosis [facility] [address] [facility] [phone] [place] [address] 13 Aug, 2021 Chaz Ruiz IMMUNIZATIONS Vaccine Route Administration [...] Education Language: Question Answer Notes Languages spoken: Dutch Quaker: Question Answer Notes Quaker 06 Jew Sexual Hx: Question Answer Notes Had sex [...] D ays May, Active OneTouch Delica Plus [id number] - USE DIRECTED DAILY Active Rivaroxaban 20 [...] Information RESULTS No Results REASON FOR VISIT heart rate MEDICAL (GENERAL) HISTORY Type Description Date Medical [...] thais dysfx, LVEF 60-01/15/20 TTE-Antecol Surgical History [facility]2002 Surgical History tonsillectomy Surgical History ear surgery Surgical History Surgical History lap gb-Shahid 07/07/15 Surgical History CYSTOSCOPY 01/15/2019 Surgical History RIGHT ELBOW SURGERY 03/09/2019 Surgical History colonoscopy-Reindl 03/14 Hospitalization History first vaginal, second c section 1981 , 1988 Hospitalization History [facility] 2002 Hospitalization History nicholas-orbital [...] every 12 hrs for 10 day(s) Aug, Next Appt Details Provider Name:Chaz Ruiz, 2021-10-25 1 1:45:00 AM, [address] [facility], [phone] [place] [address], [phone], Insurance Providers Payer Name Payer Address Payer Phone Insured Name Patient Relati onship to Insured Coverage Start Date Coverage End Date BCBS OF [facility] [phone] [facility] [address] [place] SRINIV[place]
--- OUTSIDE RECORDS SUMMARY | 2021-09-15 20:39 | CCD ---
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 Active confirmed 44422434 Problem BPPV (benign paroxysmal positional vertigo) H81.10 Active confirmed 242309067 Problem Vitamin D deficiency E55.9 Active confirmed 65476659 Problem Breast cancer screening Z12.39 Active confirmed 816706833 Problem Tubulovillous adenoma of colon D12.6 Active confir med 12363721 Problem Eczema of both hands L30.9 Active confirmed 163029070 Problem 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 Act luz confirmed 522778090560681 Problem Mixed hyperlipidemia E78.2 Active confirmed 531955318 Problem Primary osteoarthritis, right wrist M19.031 Acti ve confirmed 352717287522458 Problem DJD (degenerative joint disease), lumbar M47.816 Active confirmed 929408660 Problem Osteopenia M85.80 Active confirmed 411868317 Problem Allergic rhinitis, unspecified J30.9 Active confir med 33987995 Problem Impingement syndrome of right shoulder M75.41 A ctive confirmed 29607205693828787 Problem Impingement syndrome of left shoulder M75.42 Ac tive confirmed 166451943132970 Problem Diabetes mellitus type 2 with complications E11.8 Active confirmed 598249918 Problem DONG (obstructive sleep apnea) G47.33 Active confirm ed 35526902 Problem Recurrent sinusitis J32.9 Active confirmed 808471258 Problem B12 deficiency E53.8 Active confirmed 53849 4004 Problem Osteoarthritis of spine with radiculopathy, lumbar region M47.26 Active confirmed 664912531 Problem Primary osteoarthritis of both knees M17.0 Act luz confirmed 554795411 Problem Nephrolithiasis N20.0 Active confirmed 9557 0007 Problem 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 Active confirmed 961789003 Problem Constipation, chronic K59.09 Active confirmed 319810274 Problem Bilateral carpal tunnel syndrome G56.03 Active conf irmed 20995477 Problem Mitral valve disease I05.9 Active confirmed 42765542 Problem Cervical spondylosis M47.812 Active confirmed 653240827 Problem IT band syndrome, right M76.31 Active confirmed 789692439 Problem Paroxysmal atrial fibrillation I48.0 Active confir med 338798322 Problem Iron deficiency anemia, unspecified iron deficiency an emia type D50.9 Active confirmed 41302646 Problem Peripheral neuropathy G62.9 Active confirmed 097212837 Problem Obstructive uropathy N13.9 Active confirmed 0397204 Problem Colon cancer screening Z12.11 Active confirmed 378162940 ALLERGIES No Known Allergies ENCOUNTERS from 1965 to 2021-09-05 Encounter Location Date Provider Diagnosis [facility] [address] [facility] [phone] [place] [address] 12 Aug, 2021 Chaz Ruiz IMMUNIZATIONS Vaccine Route [...] Education Language: Question Answer Notes Languages spoken: Cameroonian Yazdanism: Question Answer Notes Yazdanism 06 Denominational Sexual Hx: Question Answer Notes Had sex [...] D ays May, Active OneTouch Delica Plus [id number] - USE DIRECTED DAILY Active Rivaroxaban 20 [...] Information RESULTS No Results REASON FOR VISIT dizzy and tachycardia, weak MEDICAL (GENERAL) HISTORY Type Description Date Medical [...] thais dysfx, LVEF 60-01/15/20 TTE-Antecol Surgical History [id number] Surgical History tonsillectomy Surgical History ear surgery Surgical History Surgical History lap gb-Shahid 07/07/15 Surgical History CYSTOSCOPY 01/15/2019 Surgical History RIGHT ELBOW SURGERY 03/09/2019 Surgical History colonoscopy-Reindl 03/14 Hospitalization History first vaginal, second c section 1981 , 1988 Hospitalization History [facility] 2002 Hospitalization History nicholas-orbital cellulitis [...] Name:Chaz Ruiz, 2021-10-25 1 1:45:00 AM, [address] [facility], , [place], [address], Insurance Providers Payer Name Payer Address Payer Phone Insured Name Patient Relati onship to Insured Coverage Start Date Coverage End Date [facility] [phone] [facility] [address] [place] SRINIV[place] self
--- OUTSIDE RECORDS SUMMARY | 2021-09-15 20:39 | CCD | Continuity of Care Document ---
Author Author Cordelia SOLIS PA Organization Unknown Address [address] [place] [address], [place] [address] Phone [phone] Care Team Providers Care Sweater Operator Name Role Phone Chaz Ruiz MD AUTM [phone] Gigi Ambrosio DO AUTM [phone] Gigi Lopez MD AUTM [phone] Tommie Crabtree MD AUTM [phone] Problems Active Problems Provider Date Atrial flutter [...] Exercise Type/Frequency Does housework twice a w [place] Exercise Type/Frequency Does yardwork sporadical ly Exercise [...] Chaz Ruiz MD 09/06/2021 Calcium 600/Vitamin D [id number] Tablets 1 by mouth daily Unknown 09/06/2021 [...] mmHg Procedures Date Code Description Status 09/07/2021 41032 Office/Outpatient Established Mo d MDM 30-39 Min Completed 09/07/2021 99966 ECG 12-Lead Completed Medical Devices Description No [...]
--- OUTSIDE RECORDS SUMMARY | 2021-09-15 20:39 | CCD | Continuity of Care Document ---
Author Organization Unknown Address Unknown Phone Unavailable Care Team Providers Care Concrete Curer Name Role Phone Chaz Ruiz MD AUTM [phone] Gigi Ambrosio DO AUTM [phone] Gigi Lopez MD AUTM [phone] Tommie Crabtree MD AUTM [phone] Problems Active Problems Provider Date Atrial flutter [...] Exercise Type/Frequency Does housework twice a w [place] Exercise Type/Frequency Does yardwork sporadical ly Exercise [...] Chaz Ruiz MD 09/06/2021 Calcium 600/Vitamin D 207-228ia-[id number] Tablets 1 by mouth daily Unknown 09/06/2021 [...] H/L Range Note CBC without Differential 09/06/2021 [facility] - not inter faced (315)- - White Blood Count 5.4 5.0-10.0 Red Blood Count 4.42 4.00-5.40 Platelets 275 172-450 Hemoglobin 12.9 Hematocrit 41.9 [facility] 09/06/2021 [facility] - not interfaced (315)- - Calcium Ser/Plasma Mass/Vol 8.7 Sodium 141 Carbon Dioxide Ser/Plasm 30 Chloride Serum/Plasma 108 Potassium 4.5 Glucose 83 83-110 Blood Urea Nitrogen 11 7-18 Creatinine 0.72 0.6-1.0 G F R >60.0 Laboratory test finding 09/06/2021 [facility] - not interf aced (315)- - Magnesium Level 2.1 1.8-2.4 Troponin 0.04 CBC without Differential 09/05/2021 [facility] - not inter faced (315)- - White Blood Count 6.5 5.0-10.0 Red Blood Count 4.56 4.00-5.40 Platelets 315 172-450 Hemoglobin 13.4 Hematocrit 42.5 BMP 09/05/2021 [facility] - not interfaced (315)- - Calcium Ser/Plasma [...] 852 Procedures Date Code Description Status 09/07/2021 96716 Office/Outpatient Established Mo d MDM 30-39 Min Completed 09/07/2021 80240 ECG 12-Lead Completed Medical Devices Description No [...]
--- OUTSIDE RECORDS SUMMARY | 2021-09-15 20:39 | CCD | Continuity of Care Document ---
Author Author Cordelia SOLIS PA Organization Unknown Address [address] [place] [address], [place] [address] Phone [phone] Care Team Providers Care Grease Monkey Name Role Phone Chaz Ruiz MD AUTM [phone] Gigi Ambrosio DO AUTM [phone] Gigi Lopez MD AUTM [phone] Tommie Crabtree MD AUTM [phone] Problems Active Problems Provider Date Atrial flutter [...] Exercise Type/Frequency Does housework twice a w [place] Exercise Type/Frequency Does yardwork sporadical ly Exercise [...] Chaz Ruiz MD 09/06/2021 Calcium 600/Vitamin D 130-921ah-Xoiy Tablets 1 by mouth daily Unknown 09/06/2021 [...] mmHg Procedures Date Code Description Status 09/07/2021 31185 Office/Outpatient Established Mo d MDM 30-39 Min Completed 09/07/2021 62326 ECG 12-Lead Completed Medical Devices Description No [...]
--- OUTSIDE RECORDS SUMMARY | 2021-09-15 20:39 | CCD | Continuity of Care Document ---
Author Organization Unknown Address Unknown Phone Unavailable Care Team Providers Care Healthcare Liaison Name Role Phone Chaz Ruiz MD AUTM [phone] Gigi Ambrosio DO AUTM [phone] Gigi Lopez MD AUTM [phone] Tommie Crabtree MD AUTM [phone] Problems Active Problems Provider Date Atrial flutter [...] Exercise Type/Frequency Does housework twice a w [place] Exercise Type/Frequency Does yardwork sporadical ly Exercise [...] Chaz Ruiz MD 09/06/2021 Calcium 600/Vitamin D 646-750nw-Cqnk Tablets 1 by mouth daily Unknown 09/06/2021 [...] Result H/L Range Note CBC without Differential 09/05/2021 [facility] - not inter faced (315)- - White Blood Count 6.5 5.0-10.0 Red Blood Count 4.56 4.00-5.40 Platelets 315 172-450 Hemoglobin 13.4 Hematocrit 42.5 BMP 09/05/2021 [facility] - not interfaced (315)- - Calcium Ser/Plasma Mass/Vol 8.9 Sodium 140 Carbon Dioxide Ser/Plasm 26 Chloride Serum/Plasma 110 Potassium 4.8 Glucose 100 83-110 Blood Urea Nitrogen 12 7-18 Creatinine 0.55 Low 0.6-1.0 G F R >60.0 Laboratory test finding 09/05/2021 [facility] - not interf aced (315)- - Magnesium Level 2.2 1.8-2.4 Troponin 0.02 Thyroid Stimulating Hormone 4.350 Free T4 1.08 NT Probnp QN Ser/Plas 852 Procedures Date Code Description Status 09/07/2021 36955 Office/Outpatient Established Mo d MDM 30-39 Min Completed 09/07/2021 93964 ECG 12-Lead Completed Medical Devices Description No [...]
--- OUTSIDE RECORDS SUMMARY | 2021-09-15 20:41 | CCD ---
Author Author [facility] Organization [facility] Address Unknown Phone Unavailable Support Name Relationship Address Phone [employer] Next Of Kin [address] [place] [address] [facility] [address] [facility] Next [facility] Kin [address] [place] [address] [facility] [place] [address] [place] [address] [facility] Next Of Kin [address] [place] [address] [facility] [place] [address] [facility] Next Of [address] [place] [address] [facility]* Next Of Kin [address] [place] [address] [place] [address] [facility]* Next Of Kin [address] [place] [address] [facility] Next Of Kin [address] [place] [address] [facility]* Next Of Kin [address] [place] [phone] [facility] Next Of Kin [address] [place] [address] [facility] Next Of Kin [address] [place] [address] EVANGELNIA SRINIVASAN Next Of Kin [address] [place] [address] EVANGELINA MAHAJAN ECON [address] [place] [address] RICHIE VALENTINE ECON [address] [address] [phone] EVANGELINA SRINIVASAN ECON [address] [place] [address] Care Team Providers Care Hydrochloric Area Supervisor Name Role Phone Charlebois, A Terrie RPA C Unavailable Unavailable [...] Charlebois, A Terrie RPA C Unavailable Unavailable WILL, L SERGIO PA Unavailable Unavailable WILL, L SERGIO PA Unavailable Unavailable WILL, L SERGIO PA Unavailable Unavailable WILL, L SERGIO PA Unavailable Unavailable WILL, L SERGIO PA Unavailable Unavailable WILL, L SERGIO PA Unavailable Unavailable WILL, L SERGIO PA Unavailable Unavailable WILL, L SERGIO PA Unavailable Unavailable WILL, L SERGIO PA Unavailable Unavailable WILL, L SERGIO PA Unavailable Unavailable WILL, L SERGIO PA Unavailable Unavailable WILL, L SERGIO PA Unavailable Unavailable WILL, L SERGIO PA Unavailable Unavailable WILL, L SERGIO PA Unavailable Unavailable WILL, L SERGIO PA Unavailable Unavailable WILL, L SERGIO PA Unavailable Unavailable Wilbur Fields JR, MD Unavailable [...] is protected by Article 27-F of the [facility] Public Health law. If you continue you may have access to information: Regarding HIV / AIDS; Provided by facilities licensed or operated by the [facility] Office of Mental Health; or Provided by the [facility] Office for People With Developmental Disabilities. If such information is present, then the following [facility] mandated warning applies: This information has been [...] law may result in a fine or chcf sentence or both. A general authorization for the release of medical or other information is NOT sufficient authorization for further disc losure. Family History Family Member Name Family Member Gender Family Member Status Date o f Status Description Data Source(s) Unknown Condition [facility] Unknown Condition [facility] Unknown Condition [facility] Unknown Condition [facility] Encounters Encounter Providers Location Date Indications Data Source(s ) Outpatient Attender: SERGIO WALDROP Main Office 09/07/2021 0 1:00:00 PM EDT [facility] ([facility]) [place] [address] [facility] [address] 09/05/2021 12:00:00 AM EDT eCW1 ([facility]) Unknown [address] [facility] [place] [address] 09/04/2021 12:00:00 AM EDT eCW1 ([facility]) Outpatient [address] [facility] [place] [address] 08/31/2021 12:00:00 AM EDT eCW1 ([facility]) [place] [address] [facility] [address] 08/10/2021 12:00:00 AM EDT eCW1 ([facility]) [place] [address] [facility] [address] 07/10/2021 12:00:00 AM EDT eCW1 ([facility]) [place] [address] [facility] [address] 06/27/2021 12:00:00 AM EDT eCW1 ([facility]) [place] [address] [facility] [address] 06/27/2021 12:00:00 AM EDT eCW1 ([facility]) [place] [address] [facility] [address] 06/27/2021 12:00:00 AM EDT eCW1 ([facility]) Outpatient [address] [facility] [place] [address] 06/19/2021 12:00:00 AM EDT eCW1 ([facility]) Unknown [address] [facility] [address] 06/19/2021 12:00:00 AM EDT [facility]) [place] [address] [facility] [address] 06/19/2021 12:00:00 AM EDT eCW1 ([facility]) [place] [address] [facility] [address] 06/19/2021 12:00:00 AM EDT eCW1 ([facility]) Unknown [address] [facility] [address] 06/19/2021 12:00:00 AM EDT eCW1 ([facility]) [place] [address] [facility] [address] 05/24/2021 12:00:00 AM EDT eCW1 ([facility]) Outpatient [address] [facility] [address] 05/24/2021 12:00:00 AM EDT [facility] [place] [address] [facility] [address] 03/19/2021 12:00:00 AM EDT eCW1 ([facility]) Outpatient Attender: Terrie Jade/Lita/Daniel guevara/John 03/13/2021 02:00:00 PM EDT MED[facility] ([facility]) Unknown [address] [facility] [address] 02/13/2021 12:00:00 AM EDT eCW1 ([facility]) Unknown [address] [facility] [address] 02/13/2021 12:00:00 AM EDT eCW1 ([facility]) Unknown [address] [facility] [address] 02/10/2021 12:00:00 AM EDT eCW1 ([facility]) Unknown [address] [facility] [address] 01/29/2021 12:00:00 AM EST eCW1 ([facility]) Unknown [address] [facility] [address] 01/17/2021 12:00:00 AM EST eCW1 ([facility]) Unknown [address] [facility] [address] 01/16/2021 12:00:00 AM EST eCW1 ([facility]) Outpatient [address] [facility] [address] 01/15/2021 12:00:00 AM EST eCW1 ([facility]) Unknown [address] [facility] [address] 01/15/2021 12:00:00 AM EST [facility]) Outpatient Attender: Terrie Jade/Lita/Daniel guevara/John 01/08/2021 10:15:00 AM EST [facility] ([facility] [place]) Unknown [address] [facility] [address] 01/08/2021 12:00:00 AM EST eCW1 ([facility]) Unknown [address] [facility] [address] 12/20/2020 12:00:00 AM EST eCW1 ([facility]) Unknown [address] [facility] [address] 12/20/2020 12:00:00 AM EST eCW1 ([facility]) Outpatient [address] [facility] [address] 12/19/2020 12:00:00 AM EST eCW1 ([facility]) Unknown [address] [facility] [address] 12/19/2020 12:00:00 AM EST eCW1 ([facility]) Unknown [address] [facility] [address] 12/15/2020 12:00:00 AM EST eCW1 ([facility]) [place]patient [address] [facility] [address] 12/13/2020 12:00:00 AM EST eCW1 ([facility]) Unknown [address] [facility] [address] 12/13/2020 12:00:00 AM EST eCW1 ([facility]) [place] [address] [facility] [address] 12/13/2020 12:00:00 AM EST eCW1 ([facility]) Outpatient [address] [facility] [address] 12/04/2020 12:00:00 AM EST eCW1 ([facility]) Unknown [address] [facility] [address] 12/04/2020 12:00:00 AM EST eCW1 ([facility]) Unknown [address] [facility] [address] 12/04/2020 12:00:00 AM EST [facility] Unknown [address] [facility] [address] 11/30/2020 12:00:00 AM EST eCW1 ([facility]) Unknown [address] [facility] [address] 10/05/2020 12:00:00 AM EST [facility]CW1 [facility] Outpatient [address] [facility] [address] 09/19/2020 12:00:00 AM EDT eCW1 [facility]) [place] [address] [facility] [address] 09/05/2020 12:00:00 AM EDT eCW1 [facility]) Outpatient Attender: Mauricio Jade/Lita/Jayant/Chad mckoy 07/19/2020 09:50:00 AM EDT MEDENT ([facility]avi, [facility]) [facility] [address] [facility] [address] 07/18/2020 12:00:00 AM EDT [facility]CW1 [facility] Immunizations Vaccine Date Status Description Data Source(s) COVID-19 dose #2 given elsewhere Unspecified 02/22/2021 05:5 6:00 PM EDT completed eCW1 ([facility]) COVID-19 dose #2 given elsewhere Unspecified 02/22/2021 05:5 6:00 PM EDT completed eCW1 ([facility]) COVID-19 dose #2 given elsewhere Unspecified 02/22/2021 05:5 6:00 PM EDT completed eCW1 ([facility]) COVID-19 dose #2 given elsewhere Unspecified 02/22/2021 05:5 6:00 PM EDT completed eCW1 ([facility]) COVID-19 dose #2 given elsewhere Unspecified 02/22/2021 05:5 6:00 PM EDT completed eCW1 ([facility]) COVID-19 dose #2 given elsewhere Unspecified 02/22/2021 05:5 6:00 PM EDT completed eCW1 ([facility]) COVID-19 dose #2 given elsewhere Unspecified 02/22/2021 05:5 6:00 PM EDT completed eCW1 ([facility]) COVID-19 dose #2 given elsewhere Unspecified 02/22/2021 05:5 6:00 PM EDT completed eCW1 ([facility]) COVID-19 dose #2 given elsewhere Unspecified 02/22/2021 05:5 6:00 PM EDT completed eCW1 ([facility]) COVID-19 dose #2 given elsewhere Unspecified 02/22/2021 05:5 6:00 PM EDT completed eCW1 ([facility]) COVID-19 dose #2 given elsewhere Unspecified 02/22/2021 05:5 6:00 PM EDT completed eCW1 ([facility]) COVID-19 dose #2 given elsewhere Unspecified 02/22/2021 05:5 6:00 PM EDT completed eCW1 ([facility]) COVID-19 dose #2 given elsewhere Unspecified 02/22/2021 05:5 6:00 PM EDT completed eCW1 ([facility]) COVID-19 dose #2 given elsewhere Unspecified 02/22/2021 05:5 6:00 PM EDT completed eCW1 ([facility]) COVID-19 dose #2 given elsewhere Unspecified 02/22/2021 05:5 6:00 PM EDT completed eCW1 ([facility]) COVID-19 dose #2 given elsewhere Unspecified 02/22/2021 05:5 6:00 PM EDT completed eCW1 ([facility]) COVID-19 dose #2 given elsewhere Unspecified 02/22/2021 05:5 6:00 PM EDT completed eCW1 ([facility]) COVID-19 VACCINE [place] 02/22/2021 12:00:00 AM EDT completed [employer] Vaccine Series Complete: YESThis Data wa s Submitted to [facility] Via [employer]. influenza, recombinant, quadrIvalent,injectable, prese rvative free 09/19/2020 05:39:00 PM EDT completed eCW1 ([facility]) influenza, recombinant, quadrIvalent,injectable, prese rvative free 09/19/2020 05:39:00 PM EDT completed eCW1 ([facility]) influenza, recombinant, quadrIvalent,injectable, prese rvative free 09/19/2020 05:39:00 PM EDT completed eCW1 ([facility] includes [facility]) influenza, recombinant, quadrIvalent,injectable, prese rvative free 09/19/2020 05:39:00 PM EDT completed eCW1 ([facility] includes the [facility]) influenza, recombinant, quadrIvalent,injectable, prese rvative free 09/19/2020 05:39:00 PM EDT completed eCW1 ([facility] includes the [facility]) influenza, recombinant, quadrIvalent,injectable, prese rvative free 09/19/2020 05:39:00 PM EDT completed eCW1 ([facility]) influenza, recombinant, quadrIvalent,injectable, prese rvative free 09/19/2020 05:39:00 PM EDT completed eCW1 ([facility]) influenza, recombinant, quadrIvalent,injectable, prese rvative free 09/19/2020 05:39:00 PM EDT completed eCW1 ([facility]) influenza, recombinant, quadrIvalent,injectable, prese rvative free 09/19/2020 05:39:00 PM EDT completed eCW1 ([facility] includes the [facility]) influenza, recombinant, quadrIvalent,injectable, prese rvative free 09/19/2020 05:39:00 PM EDT completed eCW1 ([facility] includes the [facility]) influenza, recombinant, quadrIvalent,injectable, prese rvative free 09/19/2020 05:39:00 PM EDT completed eCW1 ([facility] includes the [facility]) influenza, recombinant, quadrIvalent,injectable, prese rvative free 09/19/2020 05:39:00 PM EDT completed eCW1 ([facility] includes the [facility]) influenza, recombinant, quadrIvalent,injectable, prese rvative free 09/19/2020 05:39:00 PM EDT completed eCW1 ([facility] includes the [facility]) influenza, recombinant, quadrIvalent,injectable, prese rvative free 09/19/2020 05:39:00 PM EDT completed eCW1 ([facility] includes the [facility]) influenza, recombinant, quadrIvalent,injectable, prese rvative free 09/19/2020 05:39:00 PM EDT completed eCW1 ([facility] includes the [facility]) influenza, recombinant, quadrIvalent,injectable, prese rvative free 09/19/2020 05:39:00 PM EDT completed eCW1 ([facility] includes the [facility]) influenza, recombinant, quadrIvalent,injectable, prese rvative free 09/19/2020 05:39:00 PM EDT completed eCW1 ([facility] includes the [facility]) influenza, recombinant, quadrIvalent,injectable, prese rvative free 09/19/2020 05:39:00 PM EDT completed eCW1 ([facility] includes the [facility]) influenza, recombinant, quadrIvalent,injectable, prese rvative free 09/19/2020 05:39:00 PM EDT completed eCW1 ([facility] includes the [facility]) influenza, recombinant, quadrIvalent,injectable, prese rvative free 09/19/2020 05:39:00 PM EDT completed eCW1 (Count includes the [facility]) influenza, recombinant, quadrIvalent,injectable, prese rvative free 09/19/2020 05:39:00 PM EDT completed eCW1 (Count includes the [facility]) influenza, recombinant, quadrIvalent,injectable, prese rvative free 09/19/2020 05:39:00 PM EDT completed eCW1 (Count includes the [facility]) influenza, recombinant, quadrIvalent,injectable, prese rvative free 09/19/2020 05:39:00 PM EDT completed eCW1 (Count includes the [facility]) influenza, recombinant, quadrIvalent,injectable, prese rvative free 09/19/2020 05:39:00 PM EDT completed eCW1 (Count includes the [facility]) influenza, recombinant, quadrIvalent,injectable, prese rvative free 09/19/2020 05:39:00 PM EDT completed eCW1 (Count includes the [facility]) influenza, recombinant, quadrIvalent,injectable, prese rvative free 09/19/2020 05:39:00 PM EDT completed eCW1 (Count includes the [facility]) influenza, recombinant, quadrIvalent,injectable, prese rvative free 09/19/2020 05:39:00 PM EDT completed eCW1 ([facility] includes the [facility]) influenza, recombinant, quadrIvalent,injectable, prese rvative free 09/19/2020 05:39:00 PM EDT completed eCW1 ([facility] includes the [facility]) influenza, recombinant, quadrIvalent,injectable, prese rvative free 09/19/2020 05:39:00 PM EDT completed eCW1 (Count includes the [facility]) influenza, recombinant, quadrIvalent,injectable, prese rvative free 09/19/2020 05:39:00 PM EDT completed eCW1 (Count includes the [facility]) influenza, recombinant, quadrIvalent,injectable, prese rvative free 09/19/2020 05:39:00 PM EDT completed eCW1 ([facility] includes the [facility]) influenza, recombinant, quadrIvalent,injectable, prese rvative free 09/19/2020 05:39:00 PM EDT completed eCW1 (Count includes the [facility]) influenza, recombinant, quadrIvalent,injectable, prese rvative free 09/19/2020 05:39:00 PM EDT completed eCW1 (Count includes the [facility]) influenza, recombinant, quadrIvalent,injectable, prese rvative free 09/19/2020 05:39:00 PM EDT completed eCW1 (Count includes the [facility]) influenza, recombinant, quadrIvalent,injectable, prese rvative free 09/19/2020 05:39:00 PM EDT completed eCW1 (Count includes the [facility]) influenza, recombinant, quadrIvalent,injectable, prese rvative free 09/19/2020 05:39:00 PM EDT completed eCW1 (Count includes the [facility]) influenza, recombinant, quadrIvalent,injectable, prese rvative free 09/19/2020 05:39:00 PM EDT completed eCW1 (Count includes the [facility]) influenza, recombinant, quadrIvalent,injectable, prese rvative free 09/19/2020 05:39:00 PM EDT completed eCW1 (Count includes the [facility]) influenza, recombinant, quadrIvalent,injectable, prese rvative free 09/19/2020 05:39:00 PM EDT completed eCW1 ([facility] includes the [facility]) influenza, recombinant, quadrIvalent,injectable, prese rvative free 09/19/2020 05:39:00 PM EDT completed eCW1 ([facility] includes the [facility]) influenza, recombinant, quadrIvalent,injectable, prese rvative free 09/19/2020 05:39:00 PM EDT completed eCW1 ([facility] includes the [facility]) Medications Medication Brand Name Start Date Product Form Dose Route Admi nistrative Instructions Pharmacy Instructions Status Indications Reaction Description Data Source(s) Furosemide 20 MG Oral Tablet [Lasix] Lasix 09/07/2021 12:00:00 AM EDT ORAL active [facility] ([facility]) atorvastatin 20 MG Oral Tablet Atorvastatin Calcium 09/06/2021 1 2:00:00 AM EDT ORAL active [facility] ( [facility]) Biotin 5 MG Oral Capsule Biotin 5000 09/06/2021 12:00:00 AM EDT ORAL active [facility] ([facility]) Digoxin 0.25 MG Oral Tablet Digoxin 09/06/2021 12:00:00 AM EDT ORAL active [facility] ([facility]) Vitamin B 12 0.5 MG Oral Tablet Vitamin B-12 09/06/2021 12:00:00 AM E DT ORAL active [facility] ([facility] Diclofenac Sodium 15 MG/ML Topical Solution Diclofenac Sodiu m 09/06/2021 12:00:00 AM EDT active M EDENT ([facility]) Calcium Carbonate 1500 MG / Cholecalciferol 400 UNT Or al Tablet Calcium 600/Vitamin D 09/06/2021 12:00:00 AM EDT ORAL active [facility] ([facility]) pantoprazole 40 MG Delayed Release Oral Tablet Pantoprazole Sodium 09/06/2021 12:00:00 AM EDT ORAL active M EDENT ([facility]) Mupirocin 20 MG/ML Topical Cream Mupirocin Calcium 09/06/2021 12:00 :00 AM EDT active [facility] ([facility]) Nortriptyline 50 MG Oral Capsule Nortriptyline HCL 09/06/2021 12:00 :00 AM EDT ORAL active [facility] ([facility]) Loratadine 10 MG Oral Tablet Loratadine 09/06/2021 12:00:00 AM EDT ORAL active [facility] ([facility]) Meclizine Hydrochloride 25 MG Oral Tablet Meclizine HCL 09/06/2021 12:00:00 AM EDT ORAL active [facility] ferrous sulfate 325 MG Oral Tablet Ferrous Sulfate 09/06/2021 12:00 :00 AM EDT ORAL active [facility] ([facility]) Fluticasone Propionate Fluticasone Propionate 09/06/2021 12:00:00 AM E DT active [facility] ([facility]) Sucralfate 1000 MG Oral Tablet Sucralfate 09/06/2021 12:00:00 AM EDT ORAL active [facility] ([facility]) Polyethylene Glycol 1000 09/06/2021 12:00:00 AM EDT active [facility] ([facility]) rivaroxaban 20 MG Oral Tablet [Xarelto] Xarelto 09/06/2021 12:00:0 0 AM EDT ORAL active [facility] ([facility] Amoxicillin 875 MG / Clavulanate 125 MG Oral Tablet Amoxicillin-Pot Clavulanate 875-125 MG Amoxicillin-Pot Clavulanate 875-125 MG 08/31/2021 12:00:00 AM ED T 1.0 {tablet} active Amoxicillin-Pot Cla vulanate 875-125 MG eCW1 ([facility]) Amoxicillin 875 MG / Clavulanate 125 MG Oral Tablet Amoxicillin-Pot Clavulanate 875-125 MG Amoxicillin-Pot Clavulanate 875-125 MG 08/31/2021 12:00:00 AM ED T 1.0 {tablet} active Amoxicillin-Pot Cla vulanate 875-125 MG eCW1 ([facility]) Amoxicillin 875 MG / Clavulanate 125 MG Oral Tablet Amoxicillin-Pot Clavulanate 875-125 MG Amoxicillin-Pot Clavulanate 875-125 MG 08/31/2021 12:00:00 AM ED T 1.0 {tablet} active Amoxicillin-Pot Cla vulanate 875-125 MG eCW1 ([facility]) Carpal Tunnel Wrist Stabilizer - Carpal Tunnel Wrist Stabili zer - 06/19/2021 12:00:00 AM EDT active Carpal T unnel Wrist Stabilizer - eCW1 ([facility]) Carpal Tunnel Wrist Stabilizer - Carpal Tunnel Wrist Stabili zer - 06/19/2021 12:00:00 AM EDT active Carpal T unnel Wrist Stabilizer - eCW1 ([facility]) Polyethylene Glycol - Polyethylene Glycol - 06/19/2021 12:00:00 AM EDT active Polyethylene Glycol - eCW1 ( [facility]) Carpal Tunnel Wrist Stabilizer - Carpal Tunnel Wrist Stabili zer - 06/19/2021 12:00:00 AM EDT active Carpal T unnel Wrist Stabilizer - eCW1 ([facility]) Mupirocin 20 MG/ML Topical Cream Mupirocin Calcium 2 % Mupir ocin Calcium 2 % 06/19/2021 12:00:00 AM EDT 1.0 {application} act luz Mupirocin Calcium 2 % eCW1 ([facility]) Carpal Tunnel Wrist Stabilizer - Carpal Tunnel Wrist Stabili zer - 06/19/2021 12:00:00 AM EDT active Carpal T unnel Wrist Stabilizer - eCW1 ([facility]) Polyethylene Glycol - Polyethylene Glycol - 06/19/2021 12:00:00 AM EDT active Polyethylene Glycol - eCW1 ( [facility]) Nortriptyline 25 MG Oral Capsule Nortriptyline HCl 25 MG Nortriptyline HCl 25 MG 06/19/2021 12:00:00 AM EDT 1.0 {capsule} acti ve Nortriptyline HCl 25 MG eCW1 ([facility]) Mupirocin 20 MG/ML Topical Cream Mupirocin Calcium 2 % Mupir ocin Calcium 2 % 06/19/2021 12:00:00 AM EDT 1.0 {application} act luz Mupirocin Calcium 2 % eCW1 ([facility]) Polyethylene Glycol - Polyethylene Glycol - 06/19/2021 12:00:00 AM EDT active Polyethylene Glycol - eCW1 ( [facility]) Polyethylene Glycol - Polyethylene Glycol - 06/19/2021 12:00:00 AM EDT active Polyethylene Glycol - eCW1 ( [facility]) Mupirocin 20 MG/ML Topical Cream Mupirocin Calcium 2 % Mupir ocin Calcium 2 % 06/19/2021 12:00:00 AM EDT 1.0 {application} act luz Mupirocin Calcium 2 % eCW1 ([facility]) Carpal Tunnel Wrist Stabilizer - Carpal Tunnel Wrist Stabili zer - 06/19/2021 12:00:00 AM EDT active Carpal T unnel Wrist Stabilizer - [facility] [facility] Mupirocin 20 MG/ML Topical Cream Mupirocin Calcium 2 % Mupir ocin Calcium 2 % 06/19/2021 12:00:00 AM EDT 1.0 {application} act luz Mupirocin Calcium 2 % eCW1 ([facility]) Carpal Tunnel Wrist Stabilizer - Carpal Tunnel Wrist Stabili zer - 06/19/2021 12:00:00 AM EDT active Carpal T unnel Wrist Stabilizer - eCW1 ([facility]) Mupirocin 20 MG/ML Topical Cream Mupirocin Calcium 2 % Mupir ocin Calcium 2 % 06/19/2021 12:00:00 AM EDT 1.0 {application} act luz Mupirocin Calcium 2 % eCW1 ([facility]) Polyethylene Glycol - Polyethylene Glycol - 06/19/2021 12:00:00 AM EDT active Polyethylene Glycol - eCW1 ( [facility]) Polyethylene Glycol - Polyethylene Glycol - 06/19/2021 12:00:00 AM EDT active Polyethylene Glycol - eCW1 ( [facility]) Nortriptyline 25 MG Oral Capsule Nortriptyline HCl 25 MG Nortriptyline HCl 25 MG 06/19/2021 12:00:00 AM EDT 1.0 {capsule} acti ve Nortriptyline HCl 25 MG eCW1 ([facility]) Mupirocin 20 MG/ML Topical Cream Mupirocin Calcium 2 % Mupir ocin Calcium 2 % 06/19/2021 12:00:00 AM EDT 1.0 {application} act luz Mupirocin Calcium 2 % eCW1 ([facility]) Polyethylene Glycol - Polyethylene Glycol - 06/19/2021 12:00:00 AM EDT active Polyethylene Glycol - eCW1 ( [facility]) Polyethylene Glycol - Polyethylene Glycol - 06/19/2021 12:00:00 AM EDT active Polyethylene Glycol - eCW1 ( [facility]) Carpal Tunnel Wrist Stabilizer - Carpal Tunnel Wrist Stabili zer - 06/19/2021 12:00:00 AM EDT active Carpal T unnel Wrist Stabilizer - eCW1 ([facility]) Nortriptyline 25 MG Oral Capsule Nortriptyline HCl 25 MG Nortriptyline HCl 25 MG 06/19/2021 12:00:00 AM EDT 1.0 {capsule} acti ve Nortriptyline HCl 25 MG eCW1 ([facility]) Nortriptyline 50 MG Oral Capsule Nortriptyline HCl 50 MG Nortriptyline HCl 50 MG 06/19/2021 12:00:00 AM EDT 1.0 {capsule} acti ve Nortriptyline HCl 50 MG eCW1 ([facility]) Mupirocin 20 MG/ML Topical Cream Mupirocin Calcium 2 % Mupir ocin Calcium 2 % 06/19/2021 12:00:00 AM EDT 1.0 {application} act luz Mupirocin Calcium 2 % eCW1 ([facility]) Polyethylene Glycol - Polyethylene Glycol - 06/19/2021 12:00:00 AM EDT active Polyethylene Glycol - eCW1 ( [facility]) Polyethylene Glycol - Polyethylene Glycol - 06/19/2021 12:00:00 AM EDT active Polyethylene Glycol - eCW1 ( [facility]) Polyethylene Glycol - Polyethylene Glycol - 06/19/2021 12:00:00 AM EDT active Polyethylene Glycol - eCW1 ( [facility]) Mupirocin 20 MG/ML Topical Cream Mupirocin Calcium 2 % Mupir ocin Calcium 2 % 06/19/2021 12:00:00 AM EDT 1.0 {application} act luz Mupirocin Calcium 2 % eCW1 ([facility]) Carpal Tunnel Wrist Stabilizer - Carpal Tunnel Wrist Stabili zer - 06/19/2021 12:00:00 AM EDT active Carpal T unnel Wrist Stabilizer - eCW1 ([facility]) Polyethylene Glycol - Polyethylene Glycol - 06/19/2021 12:00:00 AM EDT active Polyethylene Glycol - eCW1 ( [facility]) Carpal Tunnel Wrist Stabilizer - Carpal Tunnel Wrist Stabili zer - 06/19/2021 12:00:00 AM EDT active Carpal T unnel Wrist Stabilizer - eCW1 ([facility]) Carpal Tunnel Wrist Stabilizer - Carpal Tunnel Wrist Stabili zer - 06/19/2021 12:00:00 AM EDT active Carpal T unnel Wrist Stabilizer - eCW1 ([facility]) Mupirocin 20 MG/ML Topical Cream Mupirocin Calcium 2 % Mupir ocin Calcium 2 % 06/19/2021 12:00:00 AM EDT 1.0 {application} act luz Mupirocin Calcium 2 % eCW1 ([facility]) Mupirocin 20 MG/ML Topical Cream Mupirocin Calcium 2 % Mupir ocin Calcium 2 % 06/19/2021 12:00:00 AM EDT 1.0 {application} act luz Mupirocin Calcium 2 % eCW1 ([facility]) Mupirocin 20 MG/ML Topical Cream Mupirocin Calcium 2 % Mupir ocin Calcium 2 % 06/19/2021 12:00:00 AM EDT 1.0 {application} act luz Mupirocin Calcium 2 % eCW1 ([facility]) Carpal Tunnel Wrist Stabilizer - Carpal Tunnel Wrist Stabili zer - 06/19/2021 12:00:00 AM EDT active Carpal T unnel Wrist Stabilizer - eCW1 ([facility]) Nortriptyline 25 MG Oral Capsule Nortriptyline HCl 25 MG Nortriptyline HCl 25 MG 06/19/2021 12:00:00 AM EDT 1.0 {capsule} acti ve Nortriptyline HCl 25 MG eCW1 ([facility]) Polyethylene Glycol - Polyethylene Glycol - 06/19/2021 12:00:00 AM EDT active Polyethylene Glycol - eCW1 ( [facility]) Mupirocin 20 MG/ML Topical Cream Mupirocin Calcium 2 % Mupir ocin Calcium 2 % 06/19/2021 12:00:00 AM EDT 1.0 {application} act luz Mupirocin Calcium 2 % eCW1 ([facility]) Nortriptyline 25 MG Oral Capsule Nortriptyline HCl 25 MG Nortriptyline HCl 25 MG 06/19/2021 12:00:00 AM EDT 1.0 {capsule} acti ve Nortriptyline HCl 25 MG eCW1 ([facility]) Nortriptyline 50 MG Oral Capsule Nortriptyline HCl 50 MG Nortriptyline HCl 50 MG 06/19/2021 12:00:00 AM EDT 1.0 {capsule} acti ve Nortriptyline HCl 50 MG eCW1 ([facility]) Carpal Tunnel Wrist Stabilizer - Carpal Tunnel Wrist Stabili zer - 06/19/2021 12:00:00 AM EDT active Carpal T unnel Wrist Stabilizer - eCW1 ([facility]) Polyethylene Glycol - Polyethylene Glycol - 06/19/2021 12:00:00 AM EDT active Polyethylene Glycol - eCW1 ( [facility]) Nortriptyline 25 MG Oral Capsule Nortriptyline HCl 25 MG Nortriptyline HCl 25 MG 06/19/2021 12:00:00 AM EDT 1.0 {capsule} acti ve Nortriptyline HCl 25 MG eCW1 ([facility]) Carpal Tunnel Wrist Stabilizer - Carpal Tunnel Wrist Stabili zer - 06/19/2021 12:00:00 AM EDT active Carpal T unnel Wrist Stabilizer - eCW1 ([facility]) Carpal Tunnel Wrist Stabilizer - Carpal Tunnel Wrist Stabili zer - 06/19/2021 12:00:00 AM EDT active Carpal T unnel Wrist Stabilizer - eCW1 ([facility]) Mupirocin 20 MG/ML Topical Cream Mupirocin Calcium 2 % Mupir ocin Calcium 2 % 06/19/2021 12:00:00 AM EDT 1.0 {application} act luz Mupirocin Calcium 2 % eCW1 ([facility]) Nortriptyline 25 MG Oral Capsule Nortriptyline HCl 25 MG Nortriptyline HCl 25 MG 06/19/2021 12:00:00 AM EDT 1.0 {capsule} acti ve Nortriptyline HCl 25 MG eCW1 ([facility]) Nortriptyline 25 MG Oral Capsule Nortriptyline HCl 25 MG Nortriptyline HCl 25 MG 06/19/2021 12:00:00 AM EDT 1.0 {capsule} acti ve Nortriptyline HCl 25 MG eCW1 ([facility]) Nortriptyline 25 MG Oral Capsule Nortriptyline HCl 25 MG Nortriptyline HCl 25 MG 06/19/2021 12:00:00 AM EDT 1.0 {capsule} acti ve Nortriptyline HCl 25 MG eCW1 ([facility]) Mupirocin 20 MG/ML Topical Cream Mupirocin Calcium 2 % Mupir ocin Calcium 2 % 06/19/2021 12:00:00 AM EDT 1.0 {application} act luz Mupirocin Calcium 2 % eCW1 ([facility]) Meclizine Hydrochloride 25 MG Oral Tablet Meclizine HC l 25 MG Meclizine HCl 25 MG 01/16/2021 12:00:00 AM EST 1.0 {tablet_as_needed} active Meclizine HCl 25 MG eCW1 ([facility]) Meclizine Hydrochloride 25 MG Oral Tablet Meclizine HC l 25 MG Meclizine HCl 25 MG 01/16/2021 12:00:00 AM EST 1.0 {tablet_as_needed} active Meclizine HCl 25 MG eCW1 ([facility]) Meclizine Hydrochloride 25 MG Oral Tablet Meclizine HC l 25 MG Meclizine HCl 25 MG 01/16/2021 12:00:00 AM EST 1.0 {tablet_as_needed} active Meclizine HCl 25 MG eCW1 ([facility]) Meclizine Hydrochloride 25 MG Oral Tablet Meclizine HC l 25 MG Meclizine HCl 25 MG 01/16/2021 12:00:00 AM EST 1.0 {tablet_as_needed} active Meclizine HCl 25 MG eCW1 ([facility]) Meclizine Hydrochloride 25 MG Oral Tablet Meclizine HC l 25 MG Meclizine HCl 25 MG 01/16/2021 12:00:00 AM EST 1.0 {tablet_as_needed} active Meclizine HCl 25 MG eCW1 ([facility]) Meclizine Hydrochloride 25 MG Oral Tablet Meclizine HC l 25 MG Meclizine HCl 25 MG 01/16/2021 12:00:00 AM EST 1.0 {tablet_as_needed} active Meclizine HCl 25 MG eCW1 ([facility]) Meclizine Hydrochloride 25 MG Oral Tablet Meclizine HC l 25 MG Meclizine HCl 25 MG 01/16/2021 12:00:00 AM EST 1.0 {tablet_as_needed} active Meclizine HCl 25 MG eCW1 ([facility]) Meclizine Hydrochloride 25 MG Oral Tablet Meclizine HC l 25 MG Meclizine HCl 25 MG 01/16/2021 12:00:00 AM EST 1.0 {tablet_as_needed} active Meclizine HCl 25 MG eCW1 ([facility]) tizanidine 4 MG Oral Tablet Tizanidine HCl 4 MG Tizanidine H Cl 4 MG 01/08/2021 12:00:00 AM EST 1.0 {tablet_as_needed} active Tizanidine HCl 4 MG eCW1 ([facility]) tizanidine 4 MG Oral Tablet Tizanidine HCl 4 MG Tizanidine H Cl 4 MG 01/08/2021 12:00:00 AM EST 1.0 {tablet_as_needed} active Tizanidine HCl 4 MG eCW1 ([facility]) tizanidine 4 MG Oral Tablet Tizanidine HCl 4 MG Tizanidine H Cl 4 MG 01/08/2021 12:00:00 AM EST 1.0 {tablet_as_needed} active Tizanidine HCl 4 MG eCW1 ([facility]) tizanidine 4 MG Oral Tablet Tizanidine HCl 4 MG Tizanidine H Cl 4 MG 01/08/2021 12:00:00 AM EST 1.0 {tablet_as_needed} active Tizanidine HCl 4 MG eCW1 ([facility]) tizanidine 4 MG Oral Tablet Tizanidine HCl 4 MG Tizanidine H Cl 4 MG 01/08/2021 12:00:00 AM EST 1.0 {tablet_as_needed} active Tizanidine HCl 4 MG eCW1 ([facility]) tizanidine 4 MG Oral Tablet Tizanidine HCl 4 MG Tizanidine H Cl 4 MG 01/08/2021 12:00:00 AM EST 1.0 {tablet_as_needed} active Tizanidine HCl 4 MG eCW1 ([facility]) tizanidine 4 MG Oral Tablet Tizanidine HCl 4 MG Tizanidine H Cl 4 MG 01/08/2021 12:00:00 AM EST 1.0 {tablet_as_needed} active Tizanidine HCl 4 MG eCW1 ([facility]) tizanidine 4 MG Oral Tablet Tizanidine HCl 4 MG Tizanidine H Cl 4 MG 01/08/2021 12:00:00 AM EST 1.0 {tablet_as_needed} active Tizanidine HCl 4 MG eCW1 ([facility]) tizanidine 4 MG Oral Tablet Tizanidine HCl 4 MG Tizanidine H Cl 4 MG 01/08/2021 12:00:00 AM EST 1.0 {tablet_as_needed} active Tizanidine HCl 4 MG eCW1 ([facility]) tizanidine 4 MG Oral Tablet Tizanidine HCl 4 MG Tizanidine H Cl 4 MG 01/08/2021 12:00:00 AM EST 1.0 {tablet_as_needed} active Tizanidine HCl 4 MG eCW1 ([facility]) POLYETHYLENE GLYCOL 3350 142 MG/ML Oral Solution [Miralax] M iralax 01/08/2021 12:00:00 AM EST completed MEDENT ([facility], ) Magnesium Hydroxide 80 MG/ML Oral Suspension Milk Of Magnesi a 01/08/2021 12:00:00 AM EST ORAL completed MEDENT ([facility], ) Levofloxacin 250 MG Oral Tablet Levofloxacin 250 MG 12/21/2020 1 2:00:00 AM EST 1.0 {tablet} active Levofloxaci n 250 MG eCW1 ([facility]) pantoprazole 40 MG Delayed Release Oral Tablet Pantopr azole Sodium 40 MG Pantoprazole Sodium 40 MG 12/21/2020 12:00:00 AM EST 1.0 {tablet} active Pantoprazole Sodium 40 MG eCW1 ( [facility]) Amoxicillin 500 MG Oral Capsule Amoxicillin 500 MG 12/21/2020 12:00 :00 AM EST active Amoxicillin 500 MG eCW1 ([facility]) Levofloxacin 250 MG Oral Tablet Levofloxacin 250 MG 12/21/2020 1 2:00:00 AM EST 1.0 {tablet} active Levofloxaci n 250 MG eCW1 ([facility]) Amoxicillin 500 MG Oral Capsule Amoxicillin 500 MG 12/21/2020 12:00 :00 AM EST active Amoxicillin 500 MG eCW1 ([facility]) pantoprazole 40 MG Delayed Release Oral Tablet Pantopr azole Sodium 40 MG Pantoprazole Sodium 40 MG 12/21/2020 12:00:00 AM EST 1.0 {tablet} active Pantoprazole Sodium 40 MG eCW1 ( [facility]) pantoprazole 40 MG Delayed Release Oral Tablet Pantopr azole Sodium 40 MG Pantoprazole Sodium 40 MG 12/21/2020 12:00:00 AM EST 1.0 {tablet} active Pantoprazole Sodium 40 MG eCW1 ( [facility]) Amoxicillin 500 MG Oral Capsule Amoxicillin 500 MG 12/21/2020 12:00 :00 AM EST active Amoxicillin 500 MG eCW1 ([facility]) pantoprazole 40 MG Delayed Release Oral Tablet Pantopr azole Sodium 40 MG Pantoprazole Sodium 40 MG 12/21/2020 12:00:00 AM EST 1.0 {tablet} active Pantoprazole Sodium 40 MG eCW1 ( [facility]) Levofloxacin 250 MG Oral Tablet Levofloxacin 250 MG 12/21/2020 1 2:00:00 AM EST 1.0 {tablet} active Levofloxaci n 250 MG eCW1 ([facility]) Levofloxacin 250 MG Oral Tablet Levofloxacin 250 MG 12/21/2020 1 2:00:00 AM EST 1.0 {tablet} active Levofloxaci n 250 MG eCW1 ([facility]) Amoxicillin 500 MG Oral Capsule Amoxicillin 500 MG 12/21/2020 12:00 :00 AM EST active Amoxicillin 500 MG eCW1 ([facility]) Augmentin 875-125 MG UNK 12/04/2020 12:00:00 AM EST 1.0 {tablet } active Augmentin 875-125 MG eCW1 ([facility]) Augmentin 875-125 MG UNK 12/04/2020 12:00:00 AM EST 1.0 {tablet } active Augmentin 875-125 MG eCW1 ([facility]) Augmentin 875-125 MG UNK 12/04/2020 12:00:00 AM EST 1.0 {tablet } active Augmentin 875-125 MG eCW1 ([facility]) Augmentin 875-125 MG UNK 12/04/2020 12:00:00 AM EST 1.0 {tablet } active Augmentin 875-125 MG eCW1 ([facility]) Augmentin 875-125 MG UNK 12/04/2020 12:00:00 AM EST 1.0 {tablet } active Augmentin 875-125 MG eCW1 ([facility]) Sucralfate 1000 MG Oral Tablet Sucralfate 07/19/2020 12:00:00 AM EDT ORAL active MEDENT ([facility] ) Insurance Providers Payer name Policy type / Coverage type Policy ID Covered alliance party ID Covered alliance party's relationship to moran Policy Moran Plan Information [employer]BS [employer] P[employer] U/W Medigap Part B [id number] Self V [id number] [employer] Ppo U/W Medigap Part B [id number] Self V [id number] [employer] Ppo U/W Medigap Part B [id number] Self V [id number] [employer] P[employer] U/W Medigap Part B [id number] [id number] Self V [id number] [employer] Ppo U/W Medigap Part B [id number] [id number] Self V [id number] [employer] U/[employer] Medigap Part B [id number] [id number] Self V [id number] [employer] Ppo U/W Medigap Part B [id number] 2..[id number]3.0 Self V [id number] [employer] U/[employer] Medigap Part B [id number] 2..[id number] Self V [id number] [employer] U/[employer] Medigap Part B [id number] 2..1.7[id number] Self V [id number] [employer] P[employer] U/[employer] Medigap Part B [id number] 2..[id number]2.0 Self V [id number] [employer] [place] Workers Compensation [id number] [id number] Self [id number] [employer] [place] Workers Compensation [id number] [id number] Self [id number] [employer] [place] Workers Compensation [id number] 2.0.1.930951.3.227.99.991.141790.0 Self [id number] [employer] [place] Workers Compensation [id number] 2.0.1.976478.3.227.99.991.833147.0 Self [id number] [employer] [place] Workers Compensation [id number] 2.16.8[id number] Self [id number] [employer] [place] Workers Compensation [id number] 2.16.840.1.775301.3.227.99.991.002721.0 Self [id number] [employer] [place] Workers Compensation [id number] 2.16.840.1.374807.3.227.99.991.747202.0 Self [id number] [employer] [place] Workers Compensation [id number] 2.16.840.1.853538.3.227.99.991.683120.0 Self [id number] [employer] [place] Workers Compensation [id number] 2.16.840.1.099645.3.227.99.991.596402.0 Self [id number] [employer] [place] Workers Compensation [id number] 2.16.840.1.661028.3.227.99.991.508020.0 Self [id number] PMA WC W [id number] Self [id number] [employer] Workers Compensation [id number] 2.16.840.1.812838.3.227.99.991.761931.0 Self [id number] [employer] [place] Workers Compensation [id number] 2.16.840.1.046274.3.227.99.991.857358.0 Self [id number] [employer] [place] Workers Compensation [id number] 2.16.840.1.333315.3.227.99.991.640472.0 Self [id number] [employer] [place] Workers Compensation [id number] 2.16.840.1.567548.3.227.99.991.389862.0 Self [id number] [employer] Ppo U/W Commercial [id number] 2.0.1.749852.3.227.99.572.18807.0 Self V [id number] [employer] U/W Medigap Part B [id number] 2.0.1.115953.3.227.99.572.43630.0 Self V [id number] [employer] Ppo U/W Commercial [id number] 2.0.1.939324.3.227.99.572.26353.0 Self V [id number] [employer] U/[employer] Medigap Part B [id number] 2..1.540368.3.227.99.572.74531.0 Self V [id number] [employer] P[employer] U/[employer] Commercial [id number] 2..1.723244.3.227.99.572.69308.0 Self V [id number] [employer] P[employer] U/W Commercial [id number] 2..1.204661.3.227.99.572.65794.0 Self V [id number] [employer] Ppo U/W Commercial [id number] 2..1.852232.3.227.99.572.77657.0 Self V [id number] [employer] P[employer] U/[employer] Commercial [id number] 2..1.484627.3.227.99.572.50439.0 Self V [id number] [employer]BS [employer] Ppo U/W Commercial [id number] 2..1.786988.3.227.99.572.95735.0 Self V [id number] [employer] U/W Medigap Part B [id number] 2.0.1.227561.3.227.99.572.40381.0 Self V [id number] [employer] BCBS [id number] [facility] VYS [id number] [place] 306/806 [id number] SP [id number] [place]BS [place] PPO 302/307 [id number] SP [id number] BC/BS Of [place] Commercial [id number] 2.16.840.1.854036.3.227.99.177.10930.0 Self S [id number] NO FAULT GENERIC E [id number] Self [id number] NO FAULT GENERIC E [id number] Self [id number] NO FAULT GENERIC E [id number] Self [id number] [employer] ([place]) Workers Compensation [id number] 2.16.840.1.523490.3.227.99.991.403494.0 Self [id number] BS Of [place] Commercial [id number] 2.16.840.1.004322.3.227.99.177.31890.0 Self V [id number] [place] PPO 302/307 [id number] SP [id number] ANSI-Commercial [id number] ANSI-Commercial [id number] ANSI-Commercial [id number] ANSI-Commercial [id number] ANSI-[employer] [id number] ANSI-[employer] [id number] ANSI-Commercial [id number] [id number] ANSI-Commercial [id number]-[id number] ANSI-Commercial [id number]-[id number] ANSI-Commercial 02tvcc50-[id number] 29ydiz00-bvc5-93p0-asr4-[id number] BCBS [employer] U/W Medigap Part B [id number] 2..1.692837.3.227.99.572.30295.0 Self S [id number] BCBS Medicare Blue U/W Commercial [id number] 2..1.306318.3.227.99.572.13771.0 Self V [id number] [employer] U/W Medigap Part B [id number] 2..1.007783.3.227.99.572.75709.0 Self S [id number] BCBS Medicare Blue U/W Commercial [id number] 2.0.1.393812.3.227.99.572.85141.0 Self V [id number] ANSI-Commercial [id number]-[id number]-[id number] ANSI-Commercial 591bxd56-[id number] 233ozy39-wqr6-230f-[id number] ANSI-Commercial [id number] ANSI-Commercial [id number] ANSI-Commercial [id number]-[id number]-jrdt-[id number]-fwo5-365f-maoz-[id number] ANSI-Commercial [id number] [id number]-217t-7h05-[id number] ANSI-Commercial [id number]-[id number]-e888-[id number] 31sy9n64-lg82-5738-k667-cm60c337zg0f ANSI-Commercial [id number]-[id number] ANSI-Commercial ac8h15tl-24yl-059a-[id number] [id number]-[id number] ANSI-Commercial [id number]-[id number] [id number]-p823-[id number] ANSI-Commercial [id number]-[id number] 67l3a652-29z3-9w17-[id number] ANSI-Commercial [id number]-[id number] 8401c27d-7m22-3hay-083b-[id number] ANSI-Commercial [id number]-[id number]-393k-o578-[id number] ANSI-Commercial [id number]-[id number]-i9ss-[id number] 14mk371u-[id number]-o3qy-[id number] ANSI-Commercial 87cdu7s8-[id number]-[id number]-[id number] ANSI-Commercial [id number] ANSI-Commercial [id number]-057m-93in-pra2-6l52y7i82577 ANSI-Commercial uci8ha2g-068f-5963-o05h-4n5588b2t2ht wgh4ek8b-013c-1969-w87j-5q9336d3r8ge ANSI-Commercial o07c4ikk-456e-2477-m65b-96301pn518fw e92d7her-856n-4271-y39x-77256hi517oz ANSI-Commercial 2hz2o08v-h800-8134-e3v0-p9c0lsh86p5p 8ne6z23t-d360-5962-z2j7-v8k6dem92h7u [facility] [facility] 306/806 [id number] SP [id number] ANSI-Commercial 5999yhs3-0863-39o8-2036-j7bs03xe0713 2949tvz8-1156-48d7-6977-n3lb49zr8890 ANSI-Commercial x8y98970-bty2-0599-4w83-3g46557z8uob e0w98280-dnq1-2438-4h81-6z17893d4kxk ANSI-Commercial 338c7877-78p2-5409-16od-8748b6ce4238 920i7323-28l9-5729-64ux-8135o8pz0443 ANSI-Commercial 8b8oi313-62af-2b48-f5gp-2in67565x84v 8w8be640-01tj-1e85-h7qu-4ni96334g18i ANSI-Commercial r44732q0-m160-7230-s8pw-kdn41b7m9bu2 k75893m4-t003-8446-t4pv-bkt47k6u9fr5 ANSI-Commercial 16os6510-77g0-377e-2u87-14h580rpcwf9 53qx8617-04q5-925o-5m13-85l798kxxxg3 ANSI-Commercial 04883u21-hc9n-4a67-253h-55g8307onyq5 54125q01-sb6h-0a74-684y-19z0503xddt2 ANSI-Commercial 1xe61397-74xl-91t4-6893-2ns323807q7h 5gv84474-22wl-88l4-5595-9or790052h0a ANSI-Commercial l68xm066-3843-9991-9680-2e3ay899j9he z87wk440-4793-3397-0144-7f7mv504b5ur ANSI-Commercial 4hhy821j-958q-5547-m537-tyu42sc4gr02 4aqm495u-340q-4310-j296-owg46pc8cr94 ANSI-Commercial 024215l4-1351-41b0-a24v-3a12w6709k53 345569m3-3897-04g6-s88t-4d99h4371y53 ANSI-Commercial 857c7571-1w2m-8369-ld73-go3r7t01f77v 943s2005-4s8l-7223-kn44-jf4j5c45m49h ANSI-Commercial f4783v8l-1g07-90b1-1095-97v26fg5324s v6311k9m-5n01-67j8-7994-24a12wc7276w ANSI-Commercial 9af7c12v-03aw-2k17-d890-340382k94646 4sa6e07p-49nb-4t92-i486-825436m38464 ANSI-Commercial 906y469q-28ki-8079-a210-nk2g018v6px5 660r134w-99fv-4893-r378-ku6z571v0fi5 ANSI-Commercial c417j312-4755-2p8m-3tn3-0z7981671476 r456q875-1898-0v6i-2rm5-9h4930511335 ANSI-Commercial a2equ8q2-63bo-5x27-1z55-682m752edohm o5gre0e6-47fb-0u03-9a87-886n543cegdx ANSI-Commercial qc5f5x16-z98q-73x9-87v7-w7q66o154928 hv3g4t56-j83r-89t3-51w2-e3l15f179820 ANSI-Commercial fkecqzok-g0k9-43tpe7b2-22kv-65n5-35611e6l795a omsbylxl-h3c8-62lbc2k1-38hz-07a5-86087c9j789w ANSI-Commercial q84prdx3-ss44-7t50-5024-95hy63e4ttj0 g60oxlp4-pc08-3f94-9798-20vq10t7iha7 ANSI-Commercial sq53xnji-280j-5631-0861-63j8l2163s8g bm97odwq-505y-7638-5548-76j2w9964p1e ANSI-Commercial 6s4216u7-774j-099s-q409-92fs85732gf4 9p4734u0-901i-360r-z269-71nv22614su1 ANSI-Commercial 5wsh531g-8463-2v9e-b9f1-4k77b423100b 2yrc873f-3995-2v5w-w2g6-9j65c680782r ANSI-Commercial 8erb88yg-7r3b-2774-tg76-38h8208552i2 9caa39jj-9v4w-9384-re12-43f5272802k1 ANSI-Commercial 8crf9b6n-0801-6z30-89n0-5919x87435vl 6zis5q5z-2272-3y49-76k2-0313v28717an ANSI-Commercial 0o0511kk-k98m-4188-2gyr-83375o549741 [id number]-k83d-1719-1gmi-[id number] ANSI-Commercial 831xe4is-a2x5-40x1-nq4k-j2755jt0f266 432vc0iq-r2y3-80j6-ar9w-r8109xg4m463 ANSI-Commercial 65nf9fb4-4w85-9v19-8bzb-06tnx2653g60 04zm2vt6-0r26-3i15-2wpy-16alf0154q07 ANSI-Commercial 12747525-022s-949e-p9t8-41q87wp1a8sa 07905775-836i-660s-v7c9-75j56nn6j4kv ANSI-Commercial c65l6q1w-3w92-7g83-k8e3-kf7t54lc468n q09s0t1x-4b08-1v78-p6v4-bl2h62sg343u ANSI-Commercial h023v5p5-bx46-2759-6aw6-4vx6238ov6i8 p023k7g4-rl47-9260-7bn3-9yb7123tg9h5 ANSI-Commercial hx5643p5-153g-1v0k-z141-62536f14bb36 uu4508c7-272o-8a2x-d365-12569p38lh81 ANSI-Commercial 8385y800-0509-0v84-7y23-20w8tp1a0ap8 8048d783-7751-6q64-5h15-49g8vv6r8qz3 ANSI-Commercial tj722787-np09-947e-3008-hzo3240i1ha0 xf524400-uz28-495z-2154-nzo3899e6pp5 ANSI-Commercial 9nw36p2z-st0e-1852-8963-0omdwu01ww53 4an19t5b-vh7q-8477-9724-4yzttt93uq84 ANSI-Commercial 5t722m52-0z4u-72kg-vd43-6917145l7524 8d152y04-0z7m-67py-dt71-1534660x8940 ANSI-Commercial 5o800c63-4p3m-9l69-7wd5-2084a7h22k6i 4g382x04-1m6u-1m02-2dt8-7119f9s51p2i ANSI-Commercial 21700qsu-hq0i-5kdn-7188-138o247msc85 60230wyx-hk8k-5tao-6490-262r870mfe51 ANSI-Commercial m2140o1l-g1hy-6dtg-4rc0-4rg24zdm5k01 j0950r8o-s8gm-4wqq-6wz0-0fg61xln6s19 ANSI-Commercial e574e385-1107-9al0-mt97-52140gqx8j62 s514d595-8523-2ne8-ep65-72008kev5j63 EXCELLUS BCBS B [id number] S VYA [id number] GENERAL CASUALTY O [id number] S [id number] ANSI-Commercial ub8826u0-0728-8014-4877-tfhfm249f3eu dh4979g7-2385-2030-6082-hexxr797a9cz ANSI-Commercial 29nw51h4-8135-24d9-p680-08924142gaie 23ny67i4-8442-19s0-m431-41241157yuwt ANSI-Commercial jdx01599-s619-68j4-jo00-266if07x1164 buf05181-b209-58q5-nc22-864xc37p1033 ANSI-Commercial 07d928f7-9x5m-5z3p-9f0m-67o261r55v36 13p911s8-6l7f-2d0j-5l8o-27g618z22h96 BCBS Excellus U/W Medigap Part B [id number] Self S [id number] BCBS Medicare Blue U/W Commercial [id number] Self V [id number] GENERAL CASUALTY COMPANIES [id number] 18 [id number] BCBS [place] PPO 302/307 [id number] SP [id number] [place]BS [place] 302/307 [id number] SP [id number] BCBS Excellus Ppo U/W Medigap Part B [id number] Self S [id number] Excellus BCBS Health Maintenance Organization (HMO) [id number] Self [id number] BCBS Excellus Ppo U/W Medigap Part B [id number] Self S [id number] BCBS Excellus Ppo U/W Medigap Part B [id number] [id number] Self S [id number] BCBS Excellus Ppo U/W Medigap Part B [id number] [id number] Self S [id number] BLUE CROSS BLUE SHIELD -O/P [id number] 18 [id number] BLUE CROSS BLUE SHIELD -O/P [id number] 18 [id number] BCBS Excellus Ppo U/W Medigap Part B [id number] [id number] Self S [id number] BCBS Excellus Ppo U/W Medigap Part B [id number] [id number] Self S [id number] BCBS Excellus Ppo U/W Medigap Part B [id number] [id number] Self S [id number] EXCELLUS BCBS B [id number] S HOSSEIN [id number] BCBS [place] PPO 302/307 [id number] SP [id number] MEMIC -PHYSICIAN [id number] 1 8 [id number] MEMIC -O/P [id number] 18 [id number] MEMIC SSV O [id number] S [id number] EXCELLUS BCBS B [id number] S VYS [id number] BS Of [facility] Maintenance [facility] ([facility]) [id number] Self BCBS [place] PPO 302/307 [id number] SP [id number] MEMIC SSV W/C [id number] SP [id number] MEMIC SSV W/C [id number] SP [id number] MEMIC SSV W/C [id number] SP [id number] [facility] MANAGEMENT [facility] [id number] SP [id number] OTHER WORKERS COMPENSATION [id number] SP [id number] BCBS OF [place] 306/806 [id number] SP [id number] BCBS [place] PPO 302/307 [id number] SP [id number] MEMIC SSV W/C UNAVAILABLE SP UNAV AILABLE OTHER WORKERS COMPENSATION [id number] SP [id number] SELF PAY UNAVAILABLE UNAVAILA BLE MEMIC [id number] SP [id number] MEMIC [id number] SP [id number] [facility] MANAGEMENT P [id number] S [id number] EXCELLUS BCBS P [id number] S [id number] PMA MANAGEMENT [facility] DOI [id number] SP DOI [id number] PMA MANAGEMENT [facility] [id number] SP [id number] BCBS OF [place] 306/806 [id number] SP [id number] BCBS OF [place] 306/806 UNKNOWN SP UNKNOWN P[employer] INS[employer] P [id number] S [id number] PMA MANAGEMENT [facility] [id number] SP [id number] [facility] P UNAVAILABLE [id number] S UNAVAILABLE *EMPLOYEE HEALTH* *EMPLOYEE HEALTH* SP *EMPLOYEE HEALTH* [facility] [id number] SP [id number] BCBS [place] PPO 302/307 [id number] SP [id number] BCBS [place] PPO 302/307 [id number] SP [id number] BC[place] 306/806 [id number] SP [id number] BCBS [place] PPO 302/307 [id number] SP [id number] BCBS [place] HMO [id number] SP [id number] BCBS [place] PPO 302/307 [id number] SP [id number] BCBS OF [place] 020/520 [id number] SP [id number] BCBS [place] 306/806 [id number] SP [id number] BCBS [place] 020/520 [id number] SP [id number] SELF PAY ONLY [id number] SP [id number] BCBS [place] HMO [id number] SP [id number] EXCELLUS BCBS B [id number] S [id number] BCBS [place] PPO 302/307 [id number] SP [id number] BCBS [place] PPO 302/307 [id number] SP [id number] [facility] B [id number] S [id number] [id number] ANSI-Commercial 5677gbd3-o5x3-8ha3-e7j2-766848viac1e 9151nyx0-o5n3-6qs2-y3y8-134914fmtz5b ANSI-Commercial 84jsl4bo-2c99-0qe7-20wi-vm6565r5j1e9 70hph4yo-9e89-5zt8-32ua-nv9864g0t2u5 ANSI-Commercial v4pa0675-1g50-3336-1q6w-qblhteb89875 z5mw8826-9u64-3492-8u0y-ntgbhhg62104 ANSI-Commercial m23zxv5s-88k2-98ig-ug56-1257g7r18492 r11dpw0v-79z7-63jx-uq02-3865m1d26641 ANSI-Commercial m77f3t6c-9060-70i0-d5gy-pu7753sp306c p70m6b4n-4834-36d9-v7wt-mj3065lh119i ANSI-Commercial k7d46372-4634-61bo-s941-yto7727h17op q5n26295-3040-56av-r400-bkm5614m98po ANSI-Commercial 2m91z5s6-9292-2p57-398i-3fl8b3qa8mn1 1m32t7a5-9683-1u22-021m-7ob0b4zc8ng1 ANSI-Commercial 872g3421-0209-3740-yk06-j0ja1420537k 387v3491-0609-9306-wq46-z0na2545842w ANSI-Commercial u8953l01-wqu6-1bjq-a8n6-52962bqf1c00 d3494m06-tdt4-5xey-m3z8-91056smz6t22 ANSI-Commercial 49232403-i7b3-8e40-pv2b-i45972h70355 43380629-h7q1-4m39-lp1q-x44940c09762 ANSI-Commercial 653300kh-6809-5uxi-0e58-193656i1kz6w 827564vf-5404-0btk-0w51-818775z3bl6v ANSI-Commercial q8h7339e-5s5g-378g-1006-10871278y368 p9j5066c-9t2c-232y-5399-96253711w405 ANSI-Commercial e8z4p1m7-9960-879v-w0o9-0n49909bw578 h9x5u3k6-0269-203d-e0h9-8v03551it805 ANSI-Commercial 35xu91e0-793i-83tq-1o32-7kx52hj9l9t5 07jj66l9-296q-65vs-4n17-4nn71ij3r4k8 ANSI-Commercial 301j8zm1-gqwi-59g4-8y2m-j643x0h6i77x 610c7ru8-wkwn-39k5-5q4v-u185x6h6l11f ANSI-Commercial h5492557-27q6-8iw3-f844-2kn2540ln3l0 x8136445-13a9-3sd6-b514-7eb8463mx0k5 ANSI-Commercial 8j4mz6vw-472d-8002-1m0b-55oon23m1447 0b5he4ko-703w-0108-7x0c-03onj65g4339 ANSI-Commercial vr1431b9-359q-7k61-2f8m-3cakj9h79858 ey1746i4-034y-7c17-0p9p-0poao6p70969 ANSI-Commercial 85062x7i-14b3-9085-p6zm-931f74475h5j 23254d7a-35d7-3384-h0iv-006y99599g0d ANSI-Commercial 55c86b73-hw42-2wa4-7j40-09cxv909y0z6 56s32z00-hf58-9zi0-3l11-02sid127c6a5 ANSI-Commercial 0km53417-sgo2-8371-xe17-9804q6zh726r 7nc52067-yae1-0819-fm86-5829h4vk575x ANSI-Commercial w1mg637k-b9ot-6f9q-46sx-8o74x27s43u6 o3wy266m-f3bz-9t5c-59cs-6h06m81i38t4 ANSI-Commercial hfr58l80-4g72-53f3-pn7r-63g3815794fa zoo35d22-6w73-06n2-cj5g-96r0774053wq ANSI-Commercial 98799bu2-im50-711t-j07e-6706e0p42552 47495da6-yn93-332n-l67r-7601a0l90817 QBE INSURANCE [id number] SP [id number] N ANSI-Commercial 4ry27tcu-08d7-9hlj-rkn9-3p42buj49454 6vw74qeo-23t4-4mze-wvb9-6n17fim64565 ANSI-Commercial 4hv80391-2537-0zuq-j615-00w5c1l4nz8t 9yv34132-8043-4aur-l665-08o1l5l7me4b ANSI-Commercial j0w4p4ia-01u9-1448-we1s-87735vet88q7 o8c0g8us-37t4-6773-qu3j-30073rud84e4 ANSI-Commercial 1e48h491-lo07-00w0-uift-8vgr08o97r66 2j75k282-tw17-07e2-dkwl-2drd00r60x60 ANSI-Commercial 63qu582k-9s1l-77fn-8n8k-073828v8v789 74sk940g-2u8g-44yc-4h8o-108757d2l891 ANSI-Commercial 59fc2e19-t472-499g-13e0-5ojdg6t6j7to 01ob6n86-p709-890d-99l8-0hhyv9l7v8ly Problems, Conditions, and Diagnoses Code Display Name Description Problem Type Effective Dates Data Source(s) M47.812 881660201 Cervical spondylosis Problem 06/19/2021 12:0 0:00 AM EDT eCW1 ([facility]) G56.03 [id number] Bilateral carpal tunnel syndrome Problem 06/19/2021 12:00:00 AM EDT eCW1 ([facility]) Z12.11 [id number] Colon cancer screening Problem 03/19/2021 12 :00:00 AM EDT eCW1 ([facility]) Surgeries/Procedures Procedure Description Date Indications Data Source(s) ECG ROUTINE ECG W/LEAST 12 LDS W/I&R 09/07/2021 12:00: 00 AM EDT [facility] ([facility]) OFFICE OUTPATIENT VISIT 25 MINUTES 09/07/2021 12:00:00 AM EDT [facility] ([facility]) Endoscopy Upper GI Biopsy 02/26/2021 12:00:00 AM EDT [facility] ([facility], ) Colonoscopy W/ Poly 02/26/2021 12:00:00 AM EDT [facility] ([facility], ) Immunization: Flublok Quadrivalent (18 years & older) 0.5mL IM (Influenza) 09/19/2020 12:00:00 AM EDT eCW1 ([facility]) XTRNL PT ACTIVATED ECG RECORD MONITOR 30 DAYS 07/27/20 20 12:00:00 AM EDT [facility] ([facility]) XTRNL PT ACTIVTD ECG DWNLD 30 DAYS PHYS R&I 07/27/2020 12:00:00 AM EDT [facility] ([facility]) Results ID Date Data Source [id number] 09/06/2021 01:35:00 PM EDT [facility]) Name Value Range Interpretation Code Description Data Jessica rce(s) Supporting Document(s) Troponin 0.04 [facility] ([facility]) Magnesium Level 2.1 1.8-2.4 [facility] ([facility]) ID Date Data Source [id number] 09/06/2021 01:35:00 PM EDT [facility] ([facility]) Name Value Range Interpretation Code Description Data Jessica rce(s) Supporting Document(s) Calcium [Mass/volume] in Serum or Plasma 8.7 [facility] ([facility]) Carbon dioxide, total [Moles/volume] in Serum or Plasma 30 [facility] ([facility]) Sodium 141 [facility] ([facility]) Glucose 83 83-110 [facility] ([facility]) Potassium [Moles/volume] in Serum or Plasma 4.5 [facility] ([facility]) Chloride [Moles/volume] in Serum or Plasma 108 [facility] ([facility]) Creatinine 0.72 0.6-1.0 [facility] ([facility]) Glomerular filtration rate/1.73 sq M.pre dicted [Volume Rate/Area] in Serum or Plasma by Creatinine-based formula (MDRD) Laboratory test result [facility] ([facility]) Blood Urea Nitrogen 11 7-18 [facility] ([facility]) ID Date Data Source [id number] 09/06/2021 01:35:00 PM EDT [facility] ([facility]) Name Value Range Interpretation Code Description Data Jessica rce(s) Supporting Document(s) White Blood Count 5.4 5.0-10.0 [facility] ([facility]) Red Blood Count 4.42 4.00-5.40 [facility] ([facility]) Platelets 275 172-450 [facility] ([facility]) Hemoglobin 12.9 [facility] ([facility]) Hematocrit 41.9 [facility] ([facility]) ID Date Data Source [id number] 09/05/2021 01:35:00 PM EDT [facility] ([facility]) Name Value Range Interpretation Code Description Data Jessica rce(s) Supporting Document(s) Troponin 0.02 [facility] ([facility] Thyroid Stimulating Hormone 4.350 ME DENT ([facility]) Magnesium Level 2.2 1.8-2.4 [facility] ([facility]) Free T4 1.08 [facility] Natriuretic peptide.B prohormone N-Terminal [Mass/volu me] in Serum or Plasma 852 [facility] ([facility]) ID Date Data Source [id number] 09/05/2021 01:35:00 PM EDT [facility] ([facility]) Name Value Range Interpretation Code Description Data Jessica rce(s) Supporting Document(s) Calcium [Mass/volume] in Serum or Plasma 8.9 [facility] ([facility]) Carbon dioxide, total [Moles/volume] in Serum or Plasma 26 [facility] ([facility]) Sodium 140 [facility] ([facility] Chloride [Moles/volume] in Serum or Plasma 110 [facility] ([facility]) Blood Urea Nitrogen 12 7-18 [facility] ([facility]) Potassium [Moles/volume] in Serum or Plasma 4.8 [facility] ([facility]) Glucose 100 83-110 [facility] ([facility]) Glomerular filtration rate/1.73 sq M.pre dicted [Volume Rate/Area] in Serum or Plasma by Creatinine-based formula (MDRD) Laboratory test result [facility] ([facility]) Creatinine 0.55 0.6-1.0 [facility] ([facility]) ID Date Data Source [id number] 09/05/2021 01:35:00 PM EDT [facility] ([facility]) Name Value Range Interpretation Code Description Data Jessica rce(s) Supporting Document(s) White Blood Count 6.5 5.0-10.0 [facility] ([facility]) Platelets 315 172-450 [facility] Red Blood Count 4.56 4.00-5.40 [facility] ([facility]) Hematocrit 42.5 [facility] ([facility]) Hemoglobin 13.4 [facility] ([facility]) ID Date Data Source [id number] 09/05/2021 01:19:00 PM EDT [facility] Name Value Range Interpretation Code Description Data Jessica rce(s) Supporting Document(s) SARS coronavirus 2 RNA [Presence] in Res piratory specimen by JIMMIE with probe detection NEGATIVE [facility] This lab was ordered by [facility] a nd reported by [facility]. ID Date Data Source [id number] 08/10/2021 10:25:00 AM EDT [facility] Name Value Range Interpretation Code Description Data Jessica rce(s) Supporting Document(s) SARS-CoV-2 (COVID-19) RNA [Presence] in Respiratory specimen by JIMMIE with probe detection Not Detected [facility] This lab was ordered by [facility] and reported by [employer] ID Date Data Source [id number] 05/24/2021 12:00:00 AM EDT eCW1 ([facility]) Name Value Range Interpretation Code Description Data Jessica rce(s) Supporting Document(s) [phone] LIPASE eCW1 ([facility] includes the [facility]) ID Date Data Source Comprehensive Metabolic Profile (CMP) 05/24/2021 12:00:00 AM EDT eCW1 ([facility]) Name Value Range Interpretation Code Description Data Jessica rce(s) Supporting Document(s) 61 70-100 GLUCOSE, FASTING eCW1 ([facility]) 13 7-18 BLOOD UREA NITROGEN eCW1 ([facility]) 0.49 0.55-1.30 CREATININE FOR GFR eCW1 ([facility]) 142 136-145 SODIUM LEVEL eCW1 ([facility]) > 60.0 >51 GLOMERULAR FILTRATION RATE eCW 1 ([facility]) 4.1 3.5-5.1 POTASSIUM SERUM eCW1 ([facility]) 107 98-107 CHLORIDE LEVEL eCW1 ([facility]) 9.3 8.5-10.1 CALCIUM LEVEL eCW1 ([facility]) 30 21-32 CARBON DIOXIDE LEVEL eCW1 ([facility]) 10 7-37 AST/SGOT eCW1 ([facility] includes the [facility]) 96 45-117 ALKALINE PHOSPHATASE eCW1 ([facility]) 24 12-78 ALT/SGPT eCW1 ([facility] includes the [facility]) 0.5 0.2-1.0 BILIRUBIN,TOTAL eCW1 ([facility]) 7.2 6.4-8.2 TOTAL PROTEIN eCW1 ([facility]) 3.9 3.2-5.2 ALBUMIN eCW1 ([facility] includes the [facility]) 1.2 1.2-2.2 ALBUMIN/GLOBULIN RATIO eCW1 ([facility]) ID Date Data Source CBC with Differential 05/24/2021 12:00:00 AM EDT eCW1 ([facility]) Name Value Range Interpretation Code Description Data Jessica rce(s) Supporting Document(s) 5.3 4.0-10.0 WHITE BLOOD COUNT eCW1 ([facility]) 4.22 4.00-5.40 RED BLOOD COUNT eCW1 ([facility]) 12.7 12.0-15.5 HEMOGLOBIN eCW1 ([facility]) 96.4 80.0-96.0 MEAN CORPUSCULAR VOLUME e CW1 ([facility]) 40.7 36.0-47.0 HEMATOCRIT eCW1 ([facility]) 30.1 27.0-33.0 MEAN CORPUSCULAR HEMOGLOB IN eCW1 ([facility]) 31.2 32.0-36.5 MEAN CORPUSCULAR HGB CONC eCW1 ([facility]) 13.0 11.5-14.5 RED CELL DISTRIBUTION WID TH eCW1 ([facility]) 53.4 36.0-66.0 NEUTROPHILS % eCW1 ([facility]) 233 150-450 PLATELET COUNT, AUTOMATED eCW1 ([facility]) 31.6 24.0-44.0 LYMPH % eCW1 ([facility] includes the [facility]) 3.6 0.0-3.0 EOS % eCW1 ([facility] includes the [facility]) 10.2 2.0-8.0 MONO % eCW1 (Count includes the [facility]) 2.8 1.5-8.5 NEUTROPHILS # eCW1 ([facility]) 0.8 0.0-1.0 BASO % eCW1 ([facility] includes the [facility]) 0.2 0.0-0.5 EOS # eCW1 (Count includes the [facility]) 1.7 1.5-5.0 LYMPH # eCW1 ([facility] includes the [facility]) 0.5 0.0-0.8 MONO # eCW1 ([facility] includes the [facility]) 0.0 0.0-0.2 BASO # eCW1 ([facility] includes the [facility]) ID Date Data Source [id number] 02/26/2021 09:08:00 AM EDT [facility] ([facility] ) Name Value Range Interpretation Code Description Data Jessica rce(s) Supporting Document(s) Surgical pathology study Laboratory test result [facility] ([facility], ) FINAL DIAGNOSIS A-Small bowel, biopsy: Small intestinal mucosa with normal villous architecture and nonspecific mild inflammation. No evidence of celiac disease. B--Gastric biopsy: Gastric mucosa with reactive changes. No H.pylori is identified. C-Colon, hepatic flexure polyp, polypectomy: Polypoid fragments of colonic mucosa with hyperplastic changes. 02/27/2021 - 130 CLINICAL DIAGNOSIS Iron deficiency anemia, abdominal pain, heartburn, and colon polyp 02/26/2021 - 141 GROSS DIAGNOSIS A - Received in formalin [...] MD 02/27/2021 1309 ID Date Data Source [id number] 02/21/2021 11:00:00 AM [facility] Name Value Range Interpretation Code Description Data Jessica rce(s) Supporting Document(s) SARS-CoV-2 (COVID-19) RNA [Presence] in Respiratory specimen by JIMMIE with probe detection Not Detected [facility] This lab was ordered by [facility] and reported by [employer]. ID Date Data Source t-Transglutaminase (tTG) IgA 12/19/2020 12:00:00 AM EST eCW1 ([facility]) Name Value Range Interpretation Code Description Data Jessica rce(s) Supporting Document(s) Tissue transglutaminase IgA Ab [Units/volume] in Serum <2 0-3 TISSUE TRANSGLUTAMINASE IgA [facility] ([facility]) ID Date Data Source FOLATE 12/19/2020 12:00:00 AM EST eCW1 ([facility]) Name Value Range Interpretation Code Description Data Jessica rce(s) Supporting Document(s) > 24.0 >5.4 FOLATE eCW1 ([facility] includes the [facility]) ID Date Data Source FERRITIN 12/19/2020 12:00:00 AM EST eCW1 ([facility]) Name Value Range Interpretation Code Description Data Jessica rce(s) Supporting Document(s) 72 [phone] FERRITIN W (Count includes the [facility]) ID Date Data Source [id number] 12/17/2020 09:15:00 AM EST [facility] Name Value Range Interpretation Code Description Data Jessica rce(s) Supporting Document(s) SARS coronavirus 2 RNA [Presence] in Res piratory specimen by JIMMIE with probe detection NEGATIVE [facility] This lab was ordered by [facility] a nd reported by [facility]. ID Date Data Source [id number] 11/30/2020 12:00:00 AM EST [facility] Name Value Range Interpretation Code Description Data Jessica rce(s) Supporting Document(s) SARS-CoV-2 (COVID-19) RNA [Presence] in Respiratory specimen by JIMMIE with probe detection Not Detected [facility] This lab was ordered by [facility] and reported by [employer] Procedure Social History Code Duration Value Status Description Data Source(s ) Smoking 09/07/2021 12:00:00 AM EDT Patient is a former smoker completed Patient is a former smoker [facility] ([facility]) Smoking 08/31/2021 12:00:00 AM EDT Never Smoker completed Never S moker eCW1 ([facility]) Smoking 08/31/2021 12:00:00 AM EDT Never Smoker completed Never S moker eCW1 ([facility]) Smoking 08/31/2021 12:00:00 AM EDT Never Smoker completed Never S moker eCW1 ([facility]) Smoking 07/10/2021 12:00:00 AM EDT Never Smoker completed Never S moker eCW1 ([facility]) Smoking 07/10/2021 12:00:00 AM EDT Never Smoker completed Never S moker eCW1 ([facility]) Smoking 06/19/2021 12:00:00 AM EDT Never Smoker completed Never S moker eCW1 ([facility]) Smoking 06/19/2021 12:00:00 AM EDT Never Smoker completed Never S moker eCW1 ([facility]) Smoking 06/19/2021 12:00:00 AM EDT Never Smoker completed Never S moker eCW1 ([facility]) Smoking 06/19/2021 12:00:00 AM EDT Never Smoker completed Never S moker eCW1 ([facility]) Smoking 06/19/2021 12:00:00 AM EDT Never Smoker completed Never S moker eCW1 ([facility]) Smoking 06/19/2021 12:00:00 AM EDT Never Smoker completed Never S moker eCW1 ([facility]) Smoking 06/19/2021 12:00:00 AM EDT Never Smoker completed Never S moker eCW1 ([facility]) Smoking 06/19/2021 12:00:00 AM EDT Never Smoker completed Never S moker eCW1 ([facility]) Smoking 06/19/2021 12:00:00 AM EDT Never Smoker completed Never S moker eCW1 ([facility]) Smoking 05/24/2021 12:00:00 AM EDT Never Smoker completed Never S moker eCW1 ([facility]) Smoking 05/24/2021 12:00:00 AM EDT Never Smoker completed Never S moker eCW1 ([facility]) Smoking 03/19/2021 12:00:00 AM EDT Never Smoker completed Never S moker eCW1 ([facility]) Smoking 01/15/2021 12:00:00 AM EST Never Smoker completed Never S moker eCW1 ([facility]) Smoking 01/15/2021 12:00:00 AM EST Never Smoker completed Never S moker eCW1 ([facility]) Smoking 01/15/2021 12:00:00 AM EST Never Smoker completed Never S moker eCW1 ([facility]) Smoking 01/15/2021 12:00:00 AM EST Never Smoker completed Never S moker eCW1 ([facility]) Smoking 01/15/2021 12:00:00 AM EST Never Smoker completed Never S moker eCW1 ([facility]) Smoking 01/15/2021 12:00:00 AM EST Never Smoker completed Never S moker eCW1 ([facility]) Smoking 01/15/2021 12:00:00 AM EST Never Smoker completed Never S moker eCW1 ([facility]) Smoking 01/15/2021 12:00:00 AM EST Never Smoker completed Never S moker eCW1 ([facility]) Smoking 12/19/2020 12:00:00 AM EST Never Smoker completed Never S moker eCW1 ([facility]) Smoking 12/19/2020 12:00:00 AM EST Never Smoker completed Never S moker eCW1 ([facility]) Smoking 12/19/2020 12:00:00 AM EST Never Smoker completed Never S moker eCW1 ([facility]) Smoking 12/19/2020 12:00:00 AM EST Never Smoker completed Never S moker eCW1 ([facility]) Smoking 12/19/2020 12:00:00 AM EST Never Smoker completed Never S moker eCW1 ([facility]) Smoking 12/19/2020 12:00:00 AM EST Never Smoker completed Never S moker eCW1 ([facility]) Smoking 12/19/2020 12:00:00 AM EST Never Smoker completed Never S moker eCW1 ([facility]) Smoking 12/19/2020 12:00:00 AM EST Never Smoker completed Never S moker eCW1 ([facility]) Smoking 12/13/2020 12:00:00 AM EST Never Smoker completed Never S moker eCW1 ([facility]) Smoking 12/13/2020 12:00:00 AM EST Never Smoker completed Never S moker eCW1 ([facility]) Smoking 12/04/2020 12:00:00 AM EST Never Smoker completed Never S moker eCW1 ([facility]) Smoking 12/04/2020 12:00:00 AM EST Never Smoker completed Never S moker eCW1 ([facility]) Smoking 12/04/2020 12:00:00 AM EST Never Smoker completed Never S moker eCW1 ([facility]) Vital Signs ID Date Data Source UNK Name Value Range Interpretation Code Description Data Source(s) Body height 62 [in_i] 62 [in_i] [facility] ([facility] 5'2" Body mass index (BMI) [Ratio] 31.5 kg/m2 31.5 k g/m2 [facility] ([facility]) Systolic blood pressure--sitting 126 mm[Hg] 126 mm[Hg] MEDENT ([facility]) Ra, large cuff Heart rate 73 /min 73 /min [facility] ([facility]) Body weight 172.00 [lb_av] 172.00 [lb_av] MEDEN T ([facility]) Diastolic blood pressure--sitting 80 mm[Hg] 80 mm[Hg] MEDENT ([facility]) Ra, large cuff Diastolic blood pressure 80 mm[Hg] 80 mm[Hg] eCW1 ([facility]) Body weight 159 [lb_av] 159 [lb_av] eCW1 ([facility]) Body height 62 [in_i] 62 [in_i] eCW1 ([facility]) Body mass index (BMI) [Ratio] 29.08 kg/m2 29.08 kg/m2 eCW1 ([facility]) Heart rate 82 /min 82 /min eCW1 ([facility]) Respiratory rate 20 /min 20 /min eCW1 ([facility]) Body temperature 97.2 [degF] 97.2 [degF] eCW1 ( [facility]) Systolic blood pressure 120 mm[Hg] 120 mm[Hg] e CW1 ([facility]) Body height 62 [in_i] 62 [in_i] eCW1 ([facility]) Body weight 172 [lb_av] 172 [lb_av] eCW1 ([facility]) Body weight 78.02 kg 78.02 kg eCW1 ([facility]) Heart rate 72 /min 72 /min eCW1 ([facility]) Body mass index (BMI) [Ratio] 31.46 kg/m2 31.46 kg/m2 eCW1 ([facility]) Respiratory rate 20 /min 20 /min eCW1 ([facility]) Body temperature 97.8 [degF] 97.8 [degF] eCW1 ( [facility]) Systolic blood pressure 116 mm[Hg] 116 mm[Hg] e CW1 ([facility]) Diastolic blood pressure 72 mm[Hg] 72 mm[Hg] eCW1 ([facility]) Body weight 170.0 [lb_av] 170.0 [lb_av] eCW1 ([facility]) Body height 62 [in_i] 62 [in_i] eCW1 ([facility]) Body mass index (BMI) [Ratio] 31.09 kg/m2 31.09 kg/m2 eCW1 ([facility]) Heart rate 58 /min 58 /min eCW1 ([facility]) Respiratory rate 20 /min 20 /min eCW1 ([facility]) Body weight 170.0 [lb_av] 170.0 [lb_av] eCW1 ([facility]) Body height 62 [in_i] 62 [in_i] eCW1 ([facility]) Body mass index (BMI) [Ratio] 31.09 kg/m2 31.09 kg/m2 eCW1 ([facility]) Heart rate 58 /min 58 /min eCW1 ([facility]) Body temperature 97.8 [degF] 97.8 [degF] eCW1 ( [facility]) Respiratory rate 20 /min 20 /min eCW1 ([facility]) Body temperature 97.8 [degF] 97.8 [degF] eCW1 ( [facility]) Systolic blood pressure 118 mm[Hg] 118 mm[Hg] e CW1 ([facility]) Diastolic blood pressure 62 mm[Hg] 62 mm[Hg] eCW1 ([facility]) Systolic blood pressure 118 mm[Hg] 118 mm[Hg] e CW1 ([facility]) Diastolic blood pressure 62 mm[Hg] 62 mm[Hg] eCW1 ([facility]) Body weight 168.6 [lb_av] 168.6 [lb_av] eCW1 ([facility]) Body height 62 [in_i] 62 [in_i] eCW1 ([facility]) Body mass index (BMI) [Ratio] 30.83 kg/m2 30.83 kg/m2 eCW1 ([facility]) Heart rate 73 /min 73 /min eCW1 ([facility]) Respiratory rate 20 /min 20 /min eCW1 ([facility]) Body temperature 97.9 [degF] 97.9 [degF] eCW1 ( [facility]) Systolic blood pressure 122 mm[Hg] 122 mm[Hg] e CW1 ([facility]) Diastolic blood pressure 70 mm[Hg] 70 mm[Hg] eCW1 ([facility]) Body weight 165.6 [lb_av] 165.6 [lb_av] eCW1 ([facility]) Body height 62 [in_i] 62 [in_i] eCW1 ([facility]) Body mass index (BMI) [Ratio] 30.29 kg/m2 30.29 kg/m2 eCW1 ([facility]) Heart rate 72 /min 72 /min eCW1 ([facility]) Respiratory rate 20 /min 20 /min eCW1 ([facility]) Body temperature 97.4 [degF] 97.4 [degF] eCW1 ( [facility]) Systolic blood pressure 110 mm[Hg] 110 mm[Hg] e CW1 ([facility]) Diastolic blood pressure 62 mm[Hg] 62 mm[Hg] eCW1 ([facility]) Body weight 74.844 kg 74.844 kg [facility] ([facility]) [place] body weight 105 [lb_av] 105 [lb_av] MEDEN T ([facility]) Body surface area Derived from formula 1.74 m2 1.74 m2 [facility] ([facility]) Body mass index (BMI) [Ratio] 31.2 kg/m2 31.2 k g/m2 [facility] ([facility]) Systolic blood pressure 110 mm[Hg] 110 mm[Hg] M EDENT ([facility]) Diastolic blood pressure 64 mm[Hg] 64 mm[Hg] [facility] ([facility]) Body height 61 [in_i] 61 [in_i] MEDENT ([facility]) 5'1" Body weight 165.00 [lb_av] 165.00 [lb_av] MEDEN T ([facility]) Body height 62 [in_i] 62 [in_i] eCW1 ([facility]) Body weight 66.2 [lb_av] 66.2 [lb_av] eCW1 ([facility]) Heart rate 59 /min 59 /min W1 ([facility]) Respiratory rate 18 /min 18 /min eCW1 ([facility]) Body temperature 97.3 [degF] 97.3 [degF] eCW1 ( [facility]) Systolic blood pressure 114 mm[Hg] 114 mm[Hg] e CW1 ([facility]) Diastolic blood pressure 60 mm[Hg] 60 mm[Hg] eCW1 ([facility]) Body mass index (BMI) [Ratio] 12.11 kg/m2 12.11 kg/m2 eCW1 ([facility]) Body weight 165.00 [lb_av] 165.00 [lb_av] MEDEN T ([facility]) Body mass index (BMI) [Ratio] 31.2 kg/m2 31.2 k g/m2 [facility] ([facility]) [place] body weight 105 [lb_av] 105 [lb_av] MEDEN T ([facility]) Body height 61 [in_i] 61 [in_i] [facility] ([facility]) 5'1" Diastolic blood pressure 70 mm[Hg] 70 mm[Hg] [facility] ([facility]) Body weight 74.844 kg 74.844 kg [facility] ([facility]) Body surface area Derived from formula 1.74 m2 1.74 m2 [facility] ([facility]) Systolic blood pressure 118 mm[Hg] 118 mm[Hg] [facility] Body weight 163 [lb_av] 163 [lb_av] eCW1 ([facility]) Body height 62 [in_i] 62 [in_i] eCW1 ([facility]) Body mass index (BMI) [Ratio] 29.81 kg/m2 29.81 kg/m2 W1 ([facility]) Heart rate 71 /min 71 /min eCW1 ([facility]) Respiratory rate 18 /min 18 /min W1 ([facility]) Body temperature 98.3 [degF] 98.3 [degF] eCW1 ( [facility]) Systolic blood pressure 100 mm[Hg] 100 mm[Hg] e CW1 ([facility]) Diastolic blood pressure 60 mm[Hg] 60 mm[Hg] eCW1 ([facility]) Body weight 160 [lb_av] 160 [lb_av] eCW1 ([facility]) Body height 62 [in_i] 62 [in_i] eCW1 ([facility]) Body mass index (BMI) [Ratio] 29.26 kg/m2 29.26 kg/m2 [facility] ([facility]) Heart rate 78 /min 78 /min eCW1 ([facility]) Respiratory rate 16 /min 16 /min eCW1 ([facility]) Body temperature 97.3 [degF] 97.3 [degF] eCW1 ( [facility]) Systolic blood pressure 118 mm[Hg] 118 mm[Hg] e CW1 ([facility]) Diastolic blood pressure 72 mm[Hg] 72 mm[Hg] eCW1 ([facility]) Body weight 161 [lb_av] 161 [lb_av] eCW1 ([facility]) Body height 62 [in_i] 62 [in_i] eCW1 ([facility]) Body mass index (BMI) [Ratio] 29.44 kg/m2 29.44 kg/m2 eCW1 ([facility]) Heart rate 75 /min 75 /min eCW1 ([facility]) Respiratory rate 18 /min 18 /min eCW1 ([facility]) Body temperature 97.1 [degF] 97.1 [degF] eCW1 ( [facility]) Systolic blood pressure 130 mm[Hg] 130 mm[Hg] e CW1 ([facility]) Diastolic blood pressure 72 mm[Hg] 72 mm[Hg] eCW1 ([facility]) [place] body weight 105 [lb_av] 105 [lb_av] MEDEN T ([facility], ) Body height 61 [in_i] 61 [in_i] MEDENT ([facility], ) 5'1" Body weight 155.25 [lb_av] 155.25 [lb_av] MEDEN T ([facility], ) Body mass index (BMI) [Ratio] 29.3 kg/m2 29.3 k g/m2 [facility] ([facility], ) Body weight 70.421 kg 70.421 kg [facility] ([facility], ) Body surface area Derived from formula 1.70 m2 1.70 m2 [facility] ([facility], ) Systolic blood pressure 122 mm[Hg] 122 mm[Hg] M EDENT ([facility], ) Diastolic blood pressure 81 mm[Hg] 81 mm[Hg] PRICILLA ([facility], ) Patient Treatment Plan of Care Planned Activity Planned Date Details Description Data Source (s) Amoxicillin 875 MG / Clavulanate 125 MG Oral Tablet 08/31/20 12:00:00 AM EDT eCW1 [facility] Amoxicillin 875 MG / Clavulanate 125 MG Oral Tablet 08/31/20 12:00:00 AM EDT eCW1 [facility] Amoxicillin 875 MG / Clavulanate 125 MG Oral Tablet 08/31/20 12:00:00 AM EDT eCW1 ([facility]) Nortriptyline 50 MG Oral Capsule 06/19/2021 12:00:00 AM EDT eCW1 ([facility]) Mupirocin 20 MG/ML Topical Cream 06/19/2021 12:00:00 AM EDT eCW1 ([facility]) Polyethylene Glycol - 06/19/2021 12:00:00 AM EDT eCW1 ([facility]) Carpal Tunnel Wrist Stabilizer - 06/19/2021 12:00:00 AM EDT eCW1 ([facility]) Nortriptyline 25 MG Oral Capsule 06/19/2021 12:00:00 AM EDT eCW1 ([facility]) Mupirocin 20 MG/ML Topical Cream 06/19/2021 12:00:00 AM EDT eCW1 ([facility]) Polyethylene Glycol - 06/19/2021 12:00:00 AM EDT eCW1 ([facility]) Carpal Tunnel Wrist Stabilizer - 06/19/2021 12:00:00 AM EDT eCW1 ([facility]) Nortriptyline 25 MG Oral Capsule 06/19/2021 12:00:00 AM EDT eCW1 ([facility]) Mupirocin 20 MG/ML Topical Cream 06/19/2021 12:00:00 AM EDT eCW1 ([facility]) Polyethylene Glycol - 06/19/2021 12:00:00 AM EDT eCW1 ([facility]) Carpal Tunnel Wrist Stabilizer - 06/19/2021 12:00:00 AM EDT eCW1 ([facility]) Nortriptyline 25 MG Oral Capsule 06/19/2021 12:00:00 AM EDT eCW1 ([facility]) Mupirocin 20 MG/ML Topical Cream 06/19/2021 12:00:00 AM EDT eCW1 ([facility]) Polyethylene Glycol - 06/19/2021 12:00:00 AM EDT eCW1 ([facility]) Carpal Tunnel Wrist Stabilizer - 06/19/2021 12:00:00 AM EDT eCW1 ([facility]) Nortriptyline 25 MG Oral Capsule 06/19/2021 12:00:00 AM EDT eCW1 ([facility]) Mupirocin 20 MG/ML Topical Cream 06/19/2021 12:00:00 AM EDT eCW1 ([facility]) Polyethylene Glycol - 06/19/2021 12:00:00 AM EDT eCW1 ([facility]) Carpal Tunnel Wrist Stabilizer - 06/19/2021 12:00:00 AM EDT eCW1 ([facility]) Nortriptyline 25 MG Oral Capsule 06/19/2021 12:00:00 AM EDT eCW1 ([facility]) Mupirocin 20 MG/ML Topical Cream 06/19/2021 12:00:00 AM EDT eCW1 ([facility]) Polyethylene Glycol - 06/19/2021 12:00:00 AM EDT eCW1 ([facility]) Carpal Tunnel Wrist Stabilizer - 06/19/2021 12:00:00 AM EDT eCW1 ([facility]) Nortriptyline 25 MG Oral Capsule 06/19/2021 12:00:00 AM EDT eCW1 ([facility]) Mupirocin 20 MG/ML Topical Cream 06/19/2021 12:00:00 AM EDT eCW1 ([facility]) Polyethylene Glycol - 06/19/2021 12:00:00 AM EDT eCW1 ([facility]) Carpal Tunnel Wrist Stabilizer - 06/19/2021 12:00:00 AM EDT eCW1 ([facility]) Nortriptyline 25 MG Oral Capsule 06/19/2021 12:00:00 AM EDT eCW1 ([facility]) Mupirocin 20 MG/ML Topical Cream 06/19/2021 12:00:00 AM EDT eCW1 ([facility]) Polyethylene Glycol - 06/19/2021 12:00:00 AM EDT eCW1 ([facility]) Carpal Tunnel Wrist Stabilizer - 06/19/2021 12:00:00 AM EDT eCW1 ([facility]) Nortriptyline 25 MG Oral Capsule 06/19/2021 12:00:00 AM EDT eCW1 ([facility]) Nortriptyline 50 MG Oral Capsule 06/19/2021 12:00:00 AM EDT eCW1 ([facility]) Carpal Tunnel Wrist Stabilizer - 06/19/2021 12:00:00 AM EDT eCW1 ([facility]) Nortriptyline 25 MG Oral Capsule 06/19/2021 12:00:00 AM EDT eCW1 ([facility]) Mupirocin 20 MG/ML Topical Cream 06/19/2021 12:00:00 AM EDT eCW1 ([facility]) Polyethylene Glycol - 06/19/2021 12:00:00 AM EDT eCW1 ([facility]) Meclizine Hydrochloride 25 MG Oral Tablet 01/16/2021 12:00:00 AM ES T eCW1 ([facility]) Meclizine Hydrochloride 25 MG Oral Tablet 01/16/2021 12:00:00 AM ES T eCW1 ([facility]) Meclizine Hydrochloride 25 MG Oral Tablet 01/16/2021 12:00:00 AM ES T eCW1 ([facility]) Meclizine Hydrochloride 25 MG Oral Tablet 01/16/2021 12:00:00 AM ES T eCW1 ([facility]) Meclizine Hydrochloride 25 MG Oral Tablet 01/16/2021 12:00:00 AM ES T eCW1 ([facility]) Meclizine Hydrochloride 25 MG Oral Tablet 01/16/2021 12:00:00 AM ES T eCW1 ([facility]) Meclizine Hydrochloride 25 MG Oral Tablet 01/16/2021 12:00:00 AM ES T eCW1 ([facility]) Meclizine Hydrochloride 25 MG Oral Tablet 01/16/2021 12:00:00 AM ES T eCW1 ([facility]) tizanidine 4 MG Oral Tablet 01/08/2021 12:00:00 AM EST eCW1 ([facility]) Amoxicillin 500 MG Oral Capsule 12/21/2020 12:00:00 AM EST eCW1 ([facility]) Levofloxacin 250 MG Oral Tablet 12/21/2020 12:00:00 AM EST eCW1 ([facility]) pantoprazole 40 MG Delayed Release Oral Tablet 12/21/2020 12:00:00 AM EST eCW1 ([facility]) Amoxicillin 500 MG Oral Capsule 12/21/2020 12:00:00 AM EST eCW1 ([facility]) Levofloxacin 250 MG Oral Tablet 12/21/2020 12:00:00 AM EST eCW1 ([facility]) pantoprazole 40 MG Delayed Release Oral Tablet 12/21/2020 12:00:00 AM EST eCW1 ([facility]) Amoxicillin 500 MG Oral Capsule 12/21/2020 12:00:00 AM EST eCW1 ([facility]) Levofloxacin 250 MG Oral Tablet 12/21/2020 12:00:00 AM EST eCW1 ([facility]) pantoprazole 40 MG Delayed Release Oral Tablet 12/21/2020 12:00:00 AM EST eCW1 ([facility]) Amoxicillin 500 MG Oral Capsule 12/21/2020 12:00:00 AM EST eCW1 ([facility]) Levofloxacin 250 MG Oral Tablet 12/21/2020 12:00:00 AM EST eCW1 ([facility]) pantoprazole 40 MG Delayed Release Oral Tablet 12/21/2020 12:00:00 AM EST eCW1 ([facility]) Augmentin 875-125 MG 12/04/2020 12:00:00 AM EST eCW1 ([facility]) Augmentin 875-125 MG 12/04/2020 12:00:00 AM EST eCW1 ([facility]) Augmentin 875-125 MG 12/04/2020 12:00:00 AM EST eCW1 ([facility])
[2021-09-15] MEDS: METOPROLOL 5 MG/5 ML VIAL IV SCH ×2 (21:25→21:53)
[2021-09-15 21:33] LABS: BASO # 0.1 10^3/uL (0.0-0.2); BASO % 0.9 % (0.0-1.0); EOS # 0.2 10^3/uL (0.0-0.5); HEMATOCRIT 41.8 % (36.0-47.0); HEMOGLOBIN 13.2 g/dl (12.0-15.5); LYMPH # 2.3 10^3/uL (1.5-5.0); LYMPH % 30.5 % (24.0-44.0); MEAN CORPUSCULAR HEMOGLOBIN 29.3 pg (27.0-33.0); MEAN CORPUSCULAR HGB CONC 31.6 g/dl (32.0-36.5); MEAN CORPUSCULAR VOLUME 92.7 fl (80.0-96.0); MONO # 0.6 10^3/uL (0.0-0.8); MONO % 7.8 % (2.0-8.0); NEUTROPHILS # 4.5 10^3/uL (1.5-8.5); NEUTROPHILS % 58.7 % (36.0-66.0); PLATELET COUNT, AUTOMATED 292 10^3/uL (150-450); RED BLOOD COUNT 4.51 10^6/uL (4.00-5.40); WHITE BLOOD COUNT 7.7 10^3/uL (4.0-10.0)
[2021-09-15] MEDS ORDERED: METOPROLOL TART 50 MG TAB PO ONE (21:55)
[2021-09-15 21:59] VITALS: BP 121/84
[2021-09-15 22:09] LABS: BLOOD UREA NITROGEN 19 MG/DL (7-18); CALCIUM LEVEL 9.1 MG/DL (8.5-10.1); CARBON DIOXIDE LEVEL 27 MEQ/L (21-32); CHLORIDE LEVEL 107 MEQ/L (98-107); CK-MB VALUE MASS 1.4 NG/ML (<3.6); CPK CREATINE PHOSPHOKINASE 60 U/L (26-192); CREATININE FOR GFR 0.68 MG/DL (0.55-1.30); DIGOXIN LEVEL 1.4 NG/ML (0.5-2.0); GLOMERULAR FILTRATION RATE > 60.0 (>51); GLUCOSE, FASTING 144 MG/DL (70-100); MAGNESIUM LEVEL 1.9 MG/DL (1.8-2.4); MB/CK RELATIVE INDEX 2.33 (< OR =4); POTASSIUM SERUM 4.3 MEQ/L (3.5-5.1); SODIUM LEVEL 142 MEQ/L (136-145); TROPONIN I 0.04 NG/ML (< 0.10)
--- NOTE | 2021-09-15 23:05 | REPVR ---
PROCEDURE INFORMATION: Exam: XR Chest Exam date and time: 09/15/2021 9:24 PM Age: 56 years old Clinical indication: Other: Palpitations TECHNIQUE: Imaging protocol: XR of the chest. Views: 1 view. COMPARISON: 1. PORTABLE CHEST X-RAY 2021-09-05 10:55 2. CR PORTABLE CHEST X-RAY 2020-12-17 10:32 3. CR Chest, 1 view 2020-07-09 18:33 FINDINGS: Lungs: Unremarkable. No consolidation. Pleural spaces: Unremarkable. No pleural effusion. No pneumothorax. Heart/Mediastinum: Unremarkable. No cardiomegaly. Bones/joints: Unremarkable. IMPRESSION: No acute findings. Electronically signed by: Gigi Riojas On 09/15/2021 23:05:29 PM
[2021-09-15] MEDS ORDERED: METO50TA7 PO (23:23)
[2021-09-15 23:30] VITALS: BP 89/55
--- OUTSIDE RECORDS SUMMARY | 2021-09-16 00:25 | CCD ---
Author Author [facility] Organization [facility] Address Unknown Phone Unavailable Support Name Relationship Address Phone [employer] Next Of Kin [address] [place] [address] [facility] [place] [address] [facility] Next Of Kin [address] [place] [address] [facility] [place] [address] [place] [address] [facility] Next Of Kin [address] [place] [address] [facility] [address] [facility] Next Of [address] [place] [address] [facility]* Next Of Kin [address] [place] [address] [place] [address] [facility]* Next Of Kin [address] [place] [address] [facility] Next Of Kin [address] [place] [address] [facility]* Next Of Kin [address] [place] [address] [facility] Next Of Kin [address] [place] [address] [facility] Next Of Kin [address] [place] [address] EVANGELINA SRINIVASAN Next Of Kin [address] [place] [address] EVANGELINA MAHAJAN ECON [address] [place] [address] RICHIE VALENTINE ECON [address] [address] [phone] EVANGELINA SRINIVASAN ECON [address] [place] [address] Care Team Providers Care Student Admissions Clerk Name Role Phone Charlebois, A Terrie RPA [...] Diamond JR, J Mauricio MD Unavailable Unavailable Idamond JR, J Mauricio MD Unavailable Unavailable Diamond [...] is protected by Article 27-F of the [facility] Public Health law. If you continue you may have access to information: Regarding HIV / AIDS; Provided by facilities licensed or operated by the [facility] Office of Mental Health; or Provided by the [facility] Office for People With Developmental Disabilities. If such information is present, then the following [facility] mandated warning applies: This information [...] f Status Description Data Source(s) Unknown Condition [facility] Unknown [facility] Unknown Condition [facility] Encounters Encounter Providers Location Date Indications Data Source(s ) Outpatient Attender: SERGIO WALDROP Main Office 09/07/2021 0 1:00:00 PM EDT MEDENT ([facility]) Unknown [address] [facility] [address] 09/05/2021 12:00:00 AM EDT eCW1 ([facility] Unknown [address] [facility] [place] [address] 09/04/2021 12:00:00 AM EDT eCW1 ([facility]) Outpatient [address] [facility] [place] [address] 08/31/2021 12:00:00 AM EDT eCW1 ([facility]) Unknown [address] [facility] [place] [address] 08/10/2021 12:00:00 AM EDT eCW1 ([facility]) Outpatient [address] [facility] [address] 07/10/2021 12:00:00 AM EDT eCW1 ([facility]) Unknown [address] [facility] [address] 06/27/2021 12:00:00 AM EDT eCW1 ([facility]) Unknown [address] [facility] [place] [address] 06/27/2021 12:00:00 AM EDT eCW1 ([facility]) Unknown [address] [facility] [place] [address] 06/27/2021 12:00:00 AM EDT eCW1 ([facility]) Outpatient [address] [facility] [place] [address] 06/19/2021 12:00:00 AM EDT eCW1 ([facility]) Unknown [address] [facility] [place] [address] 06/19/2021 12:00:00 AM EDT [facility] [address] [facility] [place] [address] 06/19/2021 12:00:00 AM EDT eCW1 ([facility]) Unknown [address] [facility] [place] [address] 06/19/2021 12:00:00 AM EDT eCW1 ([facility]) Unknown [address] [facility] [place] [address] 06/19/2021 12:00:00 AM EDT eCW1 ([facility]) Unknown [address] [facility] [place] [address] 05/24/2021 12:00:00 AM EDT eCW1 ([facility]) Outpatient [address] [facility] [place] [address] 05/24/2021 12:00:00 AM EDT [facility]patient [address] [facility] [place] [address] 03/19/2021 12:00:00 AM EDT eCW1 ([facility]) Outpatient Attender: Terrie Jade/Lita/Daniel guevara/John 03/13/2021 02:00:00 PM EDT MEDENT ([facility]) Unknown [address] [facility] [place] [address] 02/13/2021 12:00:00 AM EDT eCW1 ([facility]) Unknown [address] [facility] [place] [address] 02/13/2021 12:00:00 AM EDT eCW1 ([facility]) Unknown [address] [facility] [place] [address] 02/10/2021 12:00:00 AM EDT eCW1 ([facility]) Unknown [address] [facility] [place] [address] 01/29/2021 12:00:00 AM EST eCW1 ([facility]) Unknown [address] [facility] [place] [address] 01/17/2021 12:00:00 AM EST eCW1 ([facility]) Unknown [address] [facility] [place] [address] 01/16/2021 12:00:00 AM EST eCW1 ([facility]) Outpatient [address] [facility] [place] [address] 01/15/2021 12:00:00 AM EST eCW1 ([facility]) Unknown [address] [facility] [place] [address] 01/15/2021 12:00:00 AM EST [facility]) Outpatient Attender: Terrie Jade/Lita/Daniel guevara/John 01/08/2021 10:15:00 AM EST MEDENT ([facility]) Unknown [address] [facility] [place] [address] 01/08/2021 12:00:00 AM EST eCW1 ([facility]) Unknown [address] [facility] [place] [address] 12/20/2020 12:00:00 AM EST eCW1 ([facility]) Unknown [address] [facility] [place] [address] 12/20/2020 12:00:00 AM EST eCW1 ([facility]) Outpatient [address] [facility] [place] [address] 12/19/2020 12:00:00 AM EST eCW1 ([facility]) Unknown [address] [facility] [place] [address] 12/19/2020 12:00:00 AM EST eCW1 ([facility]) Unknown [address] [facility] [place] [address] 12/15/2020 12:00:00 AM EST eCW1 ([facility]) Outpatient [address] [facility] [place] [address] 12/13/2020 12:00:00 AM EST eCW1 ([facility]) Unknown [address] [facility] [place] [address] 12/13/2020 12:00:00 AM EST eCW1 ([facility]) Unknown [address] [facility] [place] [address] 12/13/2020 12:00:00 AM EST eCW1 ([facility]) Outpatient [address] [facility] [place] [address] 12/04/2020 12:00:00 AM EST eCW1 ([facility]) Unknown [address] [facility] [place] [address] 12/04/2020 12:00:00 AM EST eCW1 ([facility]) Unknown [address] [facility] [place] [address] 12/04/2020 12:00:00 AM EST [facility]1 [facility] Unknown [address] [facility] [place] [address] 11/30/2020 12:00:00 AM EST eCW1 ([facility]) Unknown [address] [facility] [place] [address] 10/05/2020 12:00:00 AM EST eCW1 ([facility] Outpatient [address] [facility] [place] [address] 09/19/2020 12:00:00 AM EDT eCW1 ([facility]) Unknown [address] [facility] [place] [address] 09/05/2020 12:00:00 AM EDT eCW1 ([facility]) Outpatient Attender: Mauricio Jade/Lita/Jayant/Chad mckoy 07/19/2020 09:50:00 AM EDT MEDENT ([facility], [facility]) [facility] [address] [facility] [place] [address] 07/18/2020 12:00:00 AM EDT eCW1 ([facility]) Immunizations Vaccine Date Status Description Data Source(s) COVID-19 dose #2 given elsewhere Unspecified 02/22/2021 05:5 6:00 PM EDT completed eCW1 ([facility]) COVID-19 dose #2 given elsewhere Unspecified 02/22/2021 05:5 6:00 PM EDT completed eCW1 ([facility]) COVID-19 dose #2 given elsewhere Unspecified 02/22/2021 05:5 6:00 PM EDT completed eCW1 ([facility]) COVID-19 dose #2 given elsewhere Unspecified 02/22/2021 05:5 6:00 PM EDT completed eCW1 ([facility]) COVID-19 dose #2 given elsewhere Unspecified 02/22/2021 05:5 6:00 PM EDT completed eCW1 ([facility]) COVID-19 dose #2 given elsewhere Unspecified 02/22/2021 05:5 6:00 PM EDT completed eCW1 ([facility]) COVID-19 dose #2 given elsewhere Unspecified 02/22/2021 05:5 6:00 PM EDT completed eCW1 ([facility]) COVID-19 dose #2 given elsewhere Unspecified 02/22/2021 05:5 6:00 PM EDT completed eCW1 ([facility]) COVID-19 dose #2 given elsewhere Unspecified 02/22/2021 05:5 6:00 PM EDT completed eCW1 ([facility]) COVID-19 dose #2 given elsewhere Unspecified 02/22/2021 05:5 6:00 PM EDT completed eCW1 ([facility]) COVID-19 dose #2 given elsewhere Unspecified 02/22/2021 05:5 6:00 PM EDT completed eCW1 ([facility]) COVID-19 dose #2 given elsewhere Unspecified 02/22/2021 05:5 6:00 PM EDT completed eCW1 ([facility]) COVID-19 dose #2 given elsewhere Unspecified 02/22/2021 05:5 6:00 PM EDT completed eCW1 ([facility]) COVID-19 dose #2 given elsewhere Unspecified 02/22/2021 05:5 6:00 PM EDT completed eCW1 ([facility]) COVID-19 dose #2 given elsewhere Unspecified 02/22/2021 05:5 6:00 PM EDT completed eCW1 ([facility]) COVID-19 dose #2 given elsewhere Unspecified 02/22/2021 05:5 6:00 PM EDT completed eCW1 ([facility]) COVID-19 dose #2 given elsewhere Unspecified 02/22/2021 05:5 6:00 PM EDT completed eCW1 ([facility]) COVID-19 VACCINE [place]yer 02/22/2021 12:00:00 AM EDT completed [employer] Vaccine Series Complete: YESThis Data wa s Submitted to [facility] Via [employer]. influenza, recombinant, quadrIvalent,injectable, prese rvative free 09/19/2020 05:39:00 PM EDT completed eCW1 ([facility]) influenza, recombinant, quadrIvalent,injectable, prese rvative free 09/19/2020 05:39:00 PM EDT completed eCW1 ([facility]) influenza, recombinant, quadrIvalent,injectable, prese rvative free 09/19/2020 05:39:00 PM EDT completed eCW1 ([facility]) influenza, recombinant, quadrIvalent,injectable, prese rvative free 09/19/2020 05:39:00 PM EDT completed eCW1 ([facility]) influenza, recombinant, quadrIvalent,injectable, prese rvative free 09/19/2020 05:39:00 PM EDT completed eCW1 ([facility]) influenza, recombinant, quadrIvalent,injectable, prese rvative free 09/19/2020 05:39:00 PM EDT completed eCW1 ([facility]) influenza, recombinant, quadrIvalent,injectable, prese rvative free 09/19/2020 05:39:00 PM EDT completed eCW1 ([facility]) influenza, recombinant, quadrIvalent,injectable, prese rvative free 09/19/2020 05:39:00 PM EDT completed eCW1 ([facility]) influenza, recombinant, quadrIvalent,injectable, prese rvative free 09/19/2020 05:39:00 PM EDT completed eCW1 ([facility]) influenza, recombinant, quadrIvalent,injectable, prese rvative free 09/19/2020 05:39:00 PM EDT completed eCW1 ([facility]) influenza, recombinant, quadrIvalent,injectable, prese rvative free 09/19/2020 05:39:00 PM EDT completed eCW1 ([facility]) influenza, recombinant, quadrIvalent,injectable, prese rvative free 09/19/2020 05:39:00 PM EDT completed eCW1 ([facility]) influenza, recombinant, quadrIvalent,injectable, prese rvative free 09/19/2020 05:39:00 PM EDT completed eCW1 ([facility]) influenza, recombinant, quadrIvalent,injectable, prese rvative free 09/19/2020 05:39:00 PM EDT completed eCW1 ([facility]) influenza, recombinant, quadrIvalent,injectable, prese rvative free 09/19/2020 05:39:00 PM EDT completed eCW1 ([facility]) influenza, recombinant, quadrIvalent,injectable, prese rvative free 09/19/2020 05:39:00 PM EDT completed eCW1 ([facility]) influenza, recombinant, quadrIvalent,injectable, prese rvative free 09/19/2020 05:39:00 PM EDT completed eCW1 ([facility]) influenza, recombinant, quadrIvalent,injectable, prese rvative free 09/19/2020 05:39:00 PM EDT completed eCW1 ([facility]) influenza, recombinant, quadrIvalent,injectable, prese rvative free 09/19/2020 05:39:00 PM EDT completed eCW1 ([facility]) influenza, recombinant, quadrIvalent,injectable, prese rvative free 09/19/2020 05:39:00 PM EDT completed eCW1 ([facility]) influenza, recombinant, quadrIvalent,injectable, prese rvative free 09/19/2020 05:39:00 PM EDT completed eCW1 ([facility]) influenza, recombinant, quadrIvalent,injectable, prese rvative free 09/19/2020 05:39:00 PM EDT completed eCW1 ([facility]) influenza, recombinant, quadrIvalent,injectable, prese rvative free 09/19/2020 05:39:00 PM EDT completed eCW1 ([facility]) influenza, recombinant, quadrIvalent,injectable, prese rvative free 09/19/2020 05:39:00 PM EDT completed eCW1 ([facility]) influenza, recombinant, quadrIvalent,injectable, prese rvative free 09/19/2020 05:39:00 PM EDT completed eCW1 ([facility]) influenza, recombinant, quadrIvalent,injectable, prese rvative free 09/19/2020 05:39:00 PM EDT completed eCW1 ([facility]) influenza, recombinant, quadrIvalent,injectable, prese rvative free 09/19/2020 05:39:00 PM EDT completed eCW1 ([facility]) influenza, recombinant, quadrIvalent,injectable, prese rvative free 09/19/2020 05:39:00 PM EDT completed eCW1 ([facility]) influenza, recombinant, quadrIvalent,injectable, prese rvative free 09/19/2020 05:39:00 PM EDT completed eCW1 ([facility]) influenza, recombinant, quadrIvalent,injectable, prese rvative free 09/19/2020 05:39:00 PM EDT completed eCW1 ([facility]) influenza, recombinant, quadrIvalent,injectable, prese rvative free 09/19/2020 05:39:00 PM EDT completed eCW1 ([facility]) influenza, recombinant, quadrIvalent,injectable, prese rvative free 09/19/2020 05:39:00 PM EDT completed eCW1 ([facility]) influenza, recombinant, quadrIvalent,injectable, prese rvative free 09/19/2020 05:39:00 PM EDT completed eCW1 ([facility]) influenza, recombinant, quadrIvalent,injectable, prese rvative free 09/19/2020 05:39:00 PM EDT completed eCW1 ([facility]) influenza, recombinant, quadrIvalent,injectable, prese rvative free 09/19/2020 05:39:00 PM EDT completed eCW1 ([facility]) influenza, recombinant, quadrIvalent,injectable, prese rvative free 09/19/2020 05:39:00 PM EDT completed eCW1 ([facility]) influenza, recombinant, quadrIvalent,injectable, prese rvative free 09/19/2020 05:39:00 PM EDT completed eCW1 ([facility]) influenza, recombinant, quadrIvalent,injectable, prese rvative free 09/19/2020 05:39:00 PM EDT completed eCW1 ([facility]) influenza, recombinant, quadrIvalent,injectable, prese rvative free 09/19/2020 05:39:00 PM EDT completed eCW1 ([facility]) influenza, recombinant, quadrIvalent,injectable, prese rvative free 09/19/2020 05:39:00 PM EDT completed eCW1 ([facility]) influenza, recombinant, quadrIvalent,injectable, prese rvative free 09/19/2020 05:39:00 PM EDT completed eCW1 ([facility]) Medications Medication Brand Name Start Date Product Form Dose Route Admi nistrative Instructions Pharmacy Instructions Status Indications Reaction Description Data Source(s) Furosemide 20 MG Oral Tablet [Lasix] Lasix 09/07/2021 12:00:00 AM EDT ORAL active [facility] ([facility]) atorvastatin 20 MG Oral Tablet Atorvastatin Calcium 09/06/2021 1 2:00:00 AM EDT ORAL active MED[facility] ( [facility]) Biotin 5 MG Oral Capsule Biotin 5000 09/06/2021 12:00:00 AM EDT ORAL active [facility] ([facility]) Digoxin 0.25 MG Oral Tablet Digoxin 09/06/2021 12:00:00 AM EDT ORAL active [facility] ([facility]) Vitamin B 12 0.5 MG Oral Tablet Vitamin B-12 09/06/2021 12:00:00 AM E DT ORAL active [facility] ([facility]) Diclofenac Sodium 15 MG/ML Topical Solution Diclofenac Sodiu m 09/06/2021 12:00:00 AM EDT active M EDENT ([facility]) Calcium Carbonate 1500 MG / Cholecalciferol 400 UNT Or al Tablet Calcium 600/Vitamin D 09/06/2021 12:00:00 AM EDT ORAL active MEDENT ([facility]) pantoprazole 40 MG Delayed Release Oral Tablet Pantoprazole Sodium 09/06/2021 12:00:00 AM EDT ORAL active M EDENT ([facility]) Mupirocin 20 MG/ML Topical Cream Mupirocin Calcium 09/06/2021 12:00 :00 AM EDT active [facility] ([facility]) Nortriptyline 50 MG Oral Capsule Nortriptyline HCL 09/06/2021 12:00 :00 AM EDT ORAL active [facility] ([facility]) Loratadine 10 MG Oral Tablet Loratadine 09/06/2021 12:00:00 AM EDT ORAL active [facility] ([facility]) Meclizine Hydrochloride 25 MG Oral Tablet Meclizine HCL 09/06/2021 12:00:00 AM EDT ORAL active [facility] ([facility]) ferrous sulfate 325 MG Oral Tablet Ferrous Sulfate 09/06/2021 12:00 :00 AM EDT ORAL active [facility] ([facility]) Fluticasone Propionate Fluticasone Propionate 09/06/2021 12:00:00 AM E DT active [facility] ([facility]) Sucralfate 1000 MG Oral Tablet Sucralfate 09/06/2021 12:00:00 AM EDT ORAL active [facility] ([facility]) Polyethylene Glycol 1000 09/06/2021 12:00:00 AM EDT active MED[facility] ([facility]) rivaroxaban 20 MG Oral Tablet [Xarelto] Xarelto 09/06/2021 12:00:0 0 AM EDT ORAL active [facility] ([facility] Amoxicillin 875 MG / Clavulanate 125 MG Oral Tablet Amoxicillin-Pot Clavulanate 875-125 MG Amoxicillin-Pot Clavulanate 875-125 MG 08/31/2021 12:00:00 AM ED T 1.0 {tablet} active Amoxicillin-Pot Cla vulanate 875-125 MG eCW1 ([facility]) Amoxicillin 875 MG / Clavulanate 125 MG Oral Tablet Amoxicillin-Pot Clavulanate 875-125 MG Amoxicillin-Pot Clavulanate 875-125 MG 08/31/2021 12:00:00 AM ED T 1.0 {tablet} active Amoxicillin-Pot Cla vulanate 875-125 MG eCW1 ([facility]) Amoxicillin 875 MG / Clavulanate 125 MG Oral Tablet Amoxicillin-Pot Clavulanate 875-125 MG Amoxicillin-Pot Clavulanate 875-125 MG 08/31/2021 12:00:00 AM ED T 1.0 {tablet} active Amoxicillin-Pot Cla vulanate 875-125 MG eCW1 ([facility]) Carpal Tunnel Wrist Stabilizer - Carpal Tunnel Wrist Stabili zer - 06/19/2021 12:00:00 AM EDT active Carpal T unnel Wrist Stabilizer - eCW1 ([facility]) Carpal Tunnel Wrist Stabilizer - Carpal Tunnel Wrist Stabili zer - 06/19/2021 12:00:00 AM EDT active Carpal T unnel Wrist Stabilizer - eCW1 ([facility]) Polyethylene Glycol - Polyethylene Glycol - 06/19/2021 12:00:00 AM EDT active Polyethylene Glycol - eCW1 ( [facility]) Carpal Tunnel Wrist Stabilizer - Carpal Tunnel Wrist Stabili zer - 06/19/2021 12:00:00 AM EDT active Carpal T unnel Wrist Stabilizer - eCW1 ([facility]) Mupirocin 20 MG/ML Topical Cream Mupirocin Calcium 2 % Mupir ocin Calcium 2 % 06/19/2021 12:00:00 AM EDT 1.0 {application} act luz Mupirocin Calcium 2 % eCW1 ([facility]) Carpal Tunnel Wrist Stabilizer - Carpal Tunnel Wrist Stabili zer - 06/19/2021 12:00:00 AM EDT active Carpal T unnel Wrist Stabilizer - eCW1 ([facility]) Polyethylene Glycol - Polyethylene Glycol - 06/19/2021 12:00:00 AM EDT active Polyethylene Glycol - eCW1 ( [facility]) Nortriptyline 25 MG Oral Capsule Nortriptyline HCl 25 MG Nortriptyline HCl 25 MG 06/19/2021 12:00:00 AM EDT 1.0 {capsule} acti ve Nortriptyline HCl 25 MG eCW1 ([facility]) Mupirocin 20 MG/ML Topical Cream Mupirocin Calcium 2 % Mupir ocin Calcium 2 % 06/19/2021 12:00:00 AM EDT 1.0 {application} act luz Mupirocin Calcium 2 % eCW1 ([facility]) Polyethylene Glycol - Polyethylene Glycol - 06/19/2021 12:00:00 AM EDT active Polyethylene Glycol - eCW1 ( [facility]) Polyethylene Glycol - Polyethylene Glycol - 06/19/2021 12:00:00 AM EDT active Polyethylene Glycol - eCW1 ( [facility]) Mupirocin 20 MG/ML Topical Cream Mupirocin Calcium 2 % Mupir ocin Calcium 2 % 06/19/2021 12:00:00 AM EDT 1.0 {application} act luz Mupirocin Calcium 2 % eCW1 ([facility]) Carpal Tunnel Wrist Stabilizer - Carpal Tunnel Wrist Stabili zer - 06/19/2021 12:00:00 AM EDT active Carpal T unnel Wrist Stabilizer - eCW1 ([facility]) Mupirocin 20 MG/ML Topical Cream Mupirocin Calcium 2 % Mupir ocin Calcium 2 % 06/19/2021 12:00:00 AM EDT 1.0 {application} act luz Mupirocin Calcium 2 % eCW1 ([facility]) Carpal Tunnel Wrist Stabilizer - Carpal Tunnel Wrist Stabili zer - 06/19/2021 12:00:00 AM EDT active Carpal T unnel Wrist Stabilizer - eCW1 ([facility]) Mupirocin 20 MG/ML Topical Cream Mupirocin Calcium 2 % Mupir ocin Calcium 2 % 06/19/2021 12:00:00 AM EDT 1.0 {application} act luz Mupirocin Calcium 2 % eCW1 ([facility]) Polyethylene Glycol - Polyethylene Glycol - 06/19/2021 12:00:00 AM EDT active Polyethylene Glycol - eCW1 ( [facility]) Polyethylene Glycol - Polyethylene Glycol - 06/19/2021 12:00:00 AM EDT active Polyethylene Glycol - eCW1 ( [facility]) Nortriptyline 25 MG Oral Capsule Nortriptyline HCl 25 MG Nortriptyline HCl 25 MG 06/19/2021 12:00:00 AM EDT 1.0 {capsule} acti ve Nortriptyline HCl 25 MG eCW1 ([facility]) Mupirocin 20 MG/ML Topical Cream Mupirocin Calcium 2 % Mupir ocin Calcium 2 % 06/19/2021 12:00:00 AM EDT 1.0 {application} act luz Mupirocin Calcium 2 % eCW1 ([facility]) Polyethylene Glycol - Polyethylene Glycol - 06/19/2021 12:00:00 AM EDT active Polyethylene Glycol - eCW1 ( [facility]) Polyethylene Glycol - Polyethylene Glycol - 06/19/2021 12:00:00 AM EDT active Polyethylene Glycol - eCW1 ( [facility]) Carpal Tunnel Wrist Stabilizer - Carpal Tunnel Wrist Stabili zer - 06/19/2021 12:00:00 AM EDT active Carpal T unnel Wrist Stabilizer - eCW1 ([facility]) Nortriptyline 25 MG Oral Capsule Nortriptyline HCl 25 MG Nortriptyline HCl 25 MG 06/19/2021 12:00:00 AM EDT 1.0 {capsule} acti ve Nortriptyline HCl 25 MG eCW1 ([facility]) Nortriptyline 50 MG Oral Capsule Nortriptyline HCl 50 MG Nortriptyline HCl 50 MG 06/19/2021 12:00:00 AM EDT 1.0 {capsule} acti ve Nortriptyline HCl 50 MG eCW1 ([facility]) Mupirocin 20 MG/ML Topical Cream Mupirocin Calcium 2 % Mupir ocin Calcium 2 % 06/19/2021 12:00:00 AM EDT 1.0 {application} act luz Mupirocin Calcium 2 % eCW1 ([facility]) Polyethylene Glycol - Polyethylene Glycol - 06/19/2021 12:00:00 AM EDT active Polyethylene Glycol - eCW1 ( [facility]) Polyethylene Glycol - Polyethylene Glycol - 06/19/2021 12:00:00 AM EDT active Polyethylene Glycol - eCW1 ( [facility]) Polyethylene Glycol - Polyethylene Glycol - 06/19/2021 12:00:00 AM EDT active Polyethylene Glycol - eCW1 ( [facility]) Mupirocin 20 MG/ML Topical Cream Mupirocin Calcium 2 % Mupir ocin Calcium 2 % 06/19/2021 12:00:00 AM EDT 1.0 {application} act luz Mupirocin Calcium 2 % eCW1 ([facility]) Carpal Tunnel Wrist Stabilizer - Carpal Tunnel Wrist Stabili zer - 06/19/2021 12:00:00 AM EDT active Carpal T unnel Wrist Stabilizer - eCW1 ([facility]) Polyethylene Glycol - Polyethylene Glycol - 06/19/2021 12:00:00 AM EDT active Polyethylene Glycol - eCW1 ( [facility]) Carpal Tunnel Wrist Stabilizer - Carpal Tunnel Wrist Stabili zer - 06/19/2021 12:00:00 AM EDT active Carpal T unnel Wrist Stabilizer - eCW1 ([facility]) Carpal Tunnel Wrist Stabilizer - Carpal Tunnel Wrist Stabili zer - 06/19/2021 12:00:00 AM EDT active Carpal T unnel Wrist Stabilizer - eCW1 ([facility]) Mupirocin 20 MG/ML Topical Cream Mupirocin Calcium 2 % Mupir ocin Calcium 2 % 06/19/2021 12:00:00 AM EDT 1.0 {application} act luz Mupirocin Calcium 2 % eCW1 ([facility]) Mupirocin 20 MG/ML Topical Cream Mupirocin Calcium 2 % Mupir ocin Calcium 2 % 06/19/2021 12:00:00 AM EDT 1.0 {application} act luz Mupirocin Calcium 2 % eCW1 ([facility]) Mupirocin 20 MG/ML Topical Cream Mupirocin Calcium 2 % Mupir ocin Calcium 2 % 06/19/2021 12:00:00 AM EDT 1.0 {application} act luz Mupirocin Calcium 2 % eCW1 ([facility]) Carpal Tunnel Wrist Stabilizer - Carpal Tunnel Wrist Stabili zer - 06/19/2021 12:00:00 AM EDT active Carpal T unnel Wrist Stabilizer - eCW1 ([facility]) Nortriptyline 25 MG Oral Capsule Nortriptyline HCl 25 MG Nortriptyline HCl 25 MG 06/19/2021 12:00:00 AM EDT 1.0 {capsule} acti ve Nortriptyline HCl 25 MG eCW1 ([facility]) Polyethylene Glycol - Polyethylene Glycol - 06/19/2021 12:00:00 AM EDT active Polyethylene Glycol - eCW1 ( [facility]) Mupirocin 20 MG/ML Topical Cream Mupirocin Calcium 2 % Mupir ocin Calcium 2 % 06/19/2021 12:00:00 AM EDT 1.0 {application} act luz Mupirocin Calcium 2 % eCW1 ([facility]) Nortriptyline 25 MG Oral Capsule Nortriptyline HCl 25 MG Nortriptyline HCl 25 MG 06/19/2021 12:00:00 AM EDT 1.0 {capsule} acti ve Nortriptyline HCl 25 MG eCW1 ([facility]) Nortriptyline 50 MG Oral Capsule Nortriptyline HCl 50 MG Nortriptyline HCl 50 MG 06/19/2021 12:00:00 AM EDT 1.0 {capsule} acti ve Nortriptyline HCl 50 MG eCW1 ([facility]) Carpal Tunnel Wrist Stabilizer - Carpal Tunnel Wrist Stabili zer - 06/19/2021 12:00:00 AM EDT active Carpal T unnel Wrist Stabilizer - eCW1 ([facility]) Polyethylene Glycol - Polyethylene Glycol - 06/19/2021 12:00:00 AM EDT active Polyethylene Glycol - eCW1 ( [facility]) Nortriptyline 25 MG Oral Capsule Nortriptyline HCl 25 MG Nortriptyline HCl 25 MG 06/19/2021 12:00:00 AM EDT 1.0 {capsule} acti ve Nortriptyline HCl 25 MG eCW1 ([facility]) Carpal Tunnel Wrist Stabilizer - Carpal Tunnel Wrist Stabili zer - 06/19/2021 12:00:00 AM EDT active Carpal T unnel Wrist Stabilizer - eCW1 ([facility]) Carpal Tunnel Wrist Stabilizer - Carpal Tunnel Wrist Stabili zer - 06/19/2021 12:00:00 AM EDT active Carpal T unnel Wrist Stabilizer - eCW1 ([facility]) Mupirocin 20 MG/ML Topical Cream Mupirocin Calcium 2 % Mupir ocin Calcium 2 % 06/19/2021 12:00:00 AM EDT 1.0 {application} act luz Mupirocin Calcium 2 % eCW1 ([facility]) Nortriptyline 25 MG Oral Capsule Nortriptyline HCl 25 MG Nortriptyline HCl 25 MG 06/19/2021 12:00:00 AM EDT 1.0 {capsule} acti ve Nortriptyline HCl 25 MG eCW1 ([facility]) Nortriptyline 25 MG Oral Capsule Nortriptyline HCl 25 MG Nortriptyline HCl 25 MG 06/19/2021 12:00:00 AM EDT 1.0 {capsule} acti ve Nortriptyline HCl 25 MG eCW1 ([facility]) Nortriptyline 25 MG Oral Capsule Nortriptyline HCl 25 MG Nortriptyline HCl 25 MG 06/19/2021 12:00:00 AM EDT 1.0 {capsule} acti ve Nortriptyline HCl 25 MG eCW1 ([facility]) Mupirocin 20 MG/ML Topical Cream Mupirocin Calcium 2 % Mupir ocin Calcium 2 % 06/19/2021 12:00:00 AM EDT 1.0 {application} act luz Mupirocin Calcium 2 % eCW1 ([facility]) Meclizine Hydrochloride 25 MG Oral Tablet Meclizine HC l 25 MG Meclizine HCl 25 MG 01/16/2021 12:00:00 AM EST 1.0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 eCW1 ([facility]) Surgeries/Procedures Procedure Description Date Indications Data Source(s) ECG ROUTINE ECG W/LEAST 12 LDS W/I&R 09/07/2021 12:00: 00 AM EDT [facility] ([facility]) OFFICE OUTPATIENT VISIT 25 MINUTES 09/07/2021 12:00:00 AM EDT [facility] ([facility]) Endoscopy Upper GI Biopsy 02/26/2021 12:00:00 AM EDT [facility] ([facility], ) Colonoscopy W/ Poly 02/26/2021 12:00:00 AM EDT [facility] ([facility], ) Immunization: Flublok Quadrivalent (18 years & older) 0.5mL IM (Influenza) 09/19/2020 12:00:00 AM EDT eCW1 ([facility]) XTRNL PT ACTIVATED ECG RECORD MONITOR 30 DAYS 07/27/20 20 12:00:00 AM EDT [facility] ([facility]) XTRNL PT ACTIVTD ECG DWNLD 30 DAYS PHYS R&I 07/27/2020 12:00:00 AM EDT [facility] ([facility]) Results ID Date Data Source [id number] 09/06/2021 01:35:00 PM EDT [facility] Name Value Range Interpretation Code Description Data Jessica rce(s) Supporting Document(s) Troponin 0.04 [facility] ([facility]) Magnesium Level 2.1 1.8-2.4 [facility] ([facility]) ID Date Data Source [id number] 09/06/2021 01:35:00 PM EDT [facility] ([facility]) Name Value Range Interpretation Code Description Data Jessica rce(s) Supporting Document(s) Calcium [Mass/volume] in Serum or Plasma 8.7 [facility] ([facility]) Carbon dioxide, total [Moles/volume] in Serum or Plasma 30 [facility] ([facility]) Sodium 141 [facility] ([facility] Glucose 83 83-110 [facility] ([facility]) Potassium [Moles/volume] in Serum or Plasma 4.5 [facility] ([facility]) Chloride [Moles/volume] in Serum or Plasma 108 [facility] ([facility]) Creatinine 0.72 0.6-1.0 [facility] ([facility]) Glomerular filtration rate/1.73 sq M.pre dicted [Volume Rate/Area] in Serum or Plasma by Creatinine-based formula (MDRD) Laboratory test result [facility] ([facility]) Blood Urea Nitrogen 11 7-18 [facility] ([facility]) ID Date Data Source [id number] 09/06/2021 01:35:00 PM EDT [facility] Name Value Range Interpretation Code Description Data Jessica rce(s) Supporting Document(s) White Blood Count 5.4 5.0-10.0 [facility] ([facility]) Red Blood Count 4.42 4.00-5.40 [facility] ([facility]) Platelets 275 172-450 [facility] ([facility]) Hemoglobin 12.9 [facility] ([facility]) Hematocrit 41.9 [facility] ([facility]) ID Date Data Source [id number] 09/05/2021 01:35:00 PM EDT [facility] Name Value Range Interpretation Code Description Data Jessica rce(s) Supporting Document(s) Troponin 0.02 [facility] ([facility] Thyroid Stimulating Hormone 4.350 ME DENT ([facility]) Magnesium Level 2.2 1.8-2.4 [facility] ([facility]) Free T4 1.08 [facility] Natriuretic peptide.B prohormone N-Terminal [Mass/volu me] in Serum or Plasma 852 [facility] ([facility]) ID Date Data Source [id number] 09/05/2021 01:35:00 PM EDT [facility] ([facility]) Name Value Range Interpretation Code Description Data Jessica rce(s) Supporting Document(s) Calcium [Mass/volume] in Serum or Plasma 8.9 [facility] ([facility]) Carbon dioxide, total [Moles/volume] in Serum or Plasma 26 [facility] ([facility]) Sodium 140 [facility] ([facility] Chloride [Moles/volume] in Serum or Plasma 110 [facility] ([facility]) Blood Urea Nitrogen 12 7-18 [facility] ([facility]) Potassium [Moles/volume] in Serum or Plasma 4.8 [facility] ([facility]) Glucose 100 83-110 [facility] ([facility]) Glomerular filtration rate/1.73 sq M.pre dicted [Volume Rate/Area] in Serum or Plasma by Creatinine-based formula (MDRD) Laboratory test result [facility] ([facility]) Creatinine 0.55 0.6-1.0 [facility] ([facility]) ID Date Data Source [id number] 09/05/2021 01:35:00 PM EDT [facility] ([facility]) Name Value Range Interpretation Code Description Data Jessica rce(s) Supporting Document(s) White Blood Count 6.5 5.0-10.0 [facility] ([facility]) Platelets 315 172-450 [facility] Red Blood Count 4.56 4.00-5.40 [facility] ([facility]) Hematocrit 42.5 [facility] ([facility]) Hemoglobin 13.4 [facility] ([facility]) ID Date Data Source [id number] 09/05/2021 01:19:00 PM EDT [facility] Name Value Range Interpretation Code Description Data Jessica rce(s) Supporting Document(s) SARS coronavirus 2 RNA [Presence] in Res piratory specimen by JIMMIE with probe detection NEGATIVE [facility] This lab was ordered by [facility] a nd reported by [facility]. ID Date Data Source [id number] 08/10/2021 10:25:00 AM EDT [facility] Name Value Range Interpretation Code Description Data Jessica rce(s) Supporting Document(s) SARS-CoV-2 (COVID-19) RNA [Presence] in Respiratory specimen by JIMMIE with probe detection Not Detected [facility] This lab was ordered by [facility] and reported by [employer] ID Date Data Source [id number] 05/24/2021 12:00:00 AM EDT eCW1 ([facility]) Name Value Range Interpretation Code Description Data Jessica rce(s) Supporting Document(s) [id number] LIPASE eCW1 ([facility]) ID Date Data Source Comprehensive Metabolic Profile (CMP) 05/24/2021 12:00:00 AM EDT eCW1 ([facility]) Name Value Range Interpretation Code Description Data Jessica rce(s) Supporting Document(s) 61 70-100 GLUCOSE, FASTING eCW1 ([facility]) 13 7-18 BLOOD UREA NITROGEN eCW1 ([facility]) 0.49 0.55-1.30 CREATININE FOR GFR eCW1 ([facility] 142 136-145 SODIUM LEVEL eCW1 ([facility]) > 60.0 >51 GLOMERULAR FILTRATION RATE eCW 1 ([facility]) 4.1 3.5-5.1 POTASSIUM SERUM eCW1 ([facility]) 107 98-107 CHLORIDE LEVEL eCW1 ([facility]) 9.3 8.5-10.1 CALCIUM LEVEL eCW1 ([facility]) 30 21-32 CARBON DIOXIDE LEVEL eCW1 ([facility]) 10 7-37 AST/SGOT eCW1 ([facility]) 96 45-117 ALKALINE PHOSPHATASE eCW1 ([facility]) 24 12-78 ALT/SGPT eCW1 ([facility]) 0.5 0.2-1.0 BILIRUBIN,TOTAL eCW1 ([facility]) 7.2 6.4-8.2 TOTAL PROTEIN eCW1 ([facility]) 3.9 3.2-5.2 ALBUMIN eCW1 ([facility]) 1.2 1.2-2.2 ALBUMIN/GLOBULIN RATIO eCW1 ([facility]) ID Date Data Source CBC with Differential 05/24/2021 12:00:00 AM EDT [facility]CW1 [facility] Name Value Range Interpretation Code Description Data Jessica rce(s) Supporting Document(s) 5.3 4.0-10.0 WHITE BLOOD COUNT eCW1 ([facility]) 4.22 4.00-5.40 RED BLOOD COUNT eCW1 ([facility]) 12.7 12.0-15.5 HEMOGLOBIN eCW1 ([facility]) 96.4 80.0-96.0 MEAN CORPUSCULAR VOLUME e CW1 ([facility]) 40.7 36.0-47.0 HEMATOCRIT eCW1 ([facility]) 30.1 27.0-33.0 MEAN CORPUSCULAR HEMOGLOB IN eCW1 ([facility]) 31.2 32.0-36.5 MEAN CORPUSCULAR HGB CONC eCW1 ([facility]) 13.0 11.5-14.5 RED CELL DISTRIBUTION WID TH eCW1 ([facility]) 53.4 36.0-66.0 NEUTROPHILS % eCW1 ([facility]) 233 150-450 PLATELET COUNT, AUTOMATED eCW1 ([facility]) 31.6 24.0-44.0 LYMPH % eCW1 ([facility]) 3.6 0.0-3.0 EOS % eCW1 ([facility]) 10.2 2.0-8.0 MONO % eCW1 ([facility]) 2.8 1.5-8.5 NEUTROPHILS # eCW1 ([facility]) 0.8 0.0-1.0 BASO % eCW1 ([facility]) 0.2 0.0-0.5 EOS # eCW1 ([facility]) 1.7 1.5-5.0 LYMPH # eCW1 ([facility]) 0.5 0.0-0.8 MONO # eCW1 ([facility]) 0.0 0.0-0.2 BASO # eCW1 ([facility]) ID Date Data Source [id number] 02/26/2021 09:08:00 AM EDT [facility] ([facility] ) Name Value Range Interpretation Code Description Data Jessica rce(s) Supporting Document(s) Surgical pathology study Laboratory test result [facility] ([facility], ) FINAL DIAGNOSIS A-Small bowel, biopsy: [...] MD 02/27/2021 1309 ID Date Data Source [id number] 02/21/2021 11:00:00 AM [facility]T [facility] Name Value Range Interpretation Code Description Data Jessica rce(s) Supporting Document(s) SARS-CoV-2 (COVID-19) RNA [Presence] in Respiratory specimen by JIMMIE with probe detection Not Detected [facility] This lab was ordered by [facility] and reported by [employer]. ID Date Data Source t-Transglutaminase (tTG) IgA 12/19/2020 12:00:00 AM EST eCW1 ([facility]) Name Value Range Interpretation Code Description Data Jessica rce(s) Supporting Document(s) Tissue transglutaminase IgA Ab [Units/volume] in Serum <2 0-3 TISSUE TRANSGLUTAMINASE IgA [facility] ([facility]) ID Date Data Source FOLATE 12/19/2020 12:00:00 AM EST eCW1 ([facility]) Name Value Range Interpretation Code Description Data Jessica rce(s) Supporting Document(s) > 24.0 >5.4 FOLATE eCW1 ([facility]) ID Date Data Source FERRITIN 12/19/2020 12:00:00 AM EST eCW1 ([facility]) Name Value Range Interpretation Code Description Data Jessica rce(s) Supporting Document(s) [id number] [id number] FERRITIN W ([facility]) ID Date Data Source [id number] 12/17/2020 09:15:00 AM EST [facility] Name Value Range Interpretation Code Description Data Jessica rce(s) Supporting Document(s) SARS coronavirus 2 RNA [Presence] in Res piratory specimen by JIMMIE with probe detection NEGATIVE [facility] This lab was ordered by [facility] a nd reported by [facility]. ID Date Data Source [id number] 11/30/2020 12:00:00 AM EST [facility] Name Value Range Interpretation Code Description Data Jessica rce(s) Supporting Document(s) SARS-CoV-2 (COVID-19) RNA [Presence] in Respiratory specimen by JIMMIE with probe detection Not Detected [facility] This lab was ordered by [facility] and reported by [employer] Procedure Social History Code Duration Value Status Description Data Source(s ) Smoking 09/07/2021 12:00:00 AM EDT Patient is a former smoker completed Patient is a former smoker [facility] ([facility]) Smoking 08/31/2021 12:00:00 AM EDT Never Smoker completed Never S moker eCW1 ([facility]) Smoking 08/31/2021 12:00:00 AM EDT Never Smoker completed Never S moker eCW1 ([facility]) Smoking 08/31/2021 12:00:00 AM EDT Never Smoker completed Never S moker eCW1 ([facility]) Smoking 07/10/2021 12:00:00 AM EDT Never Smoker completed Never S moker eCW1 ([facility]) Smoking 07/10/2021 12:00:00 AM EDT Never Smoker completed Never S moker eCW1 ([facility]) Smoking 06/19/2021 12:00:00 AM EDT Never Smoker completed Never S moker eCW1 ([facility]) Smoking 06/19/2021 12:00:00 AM EDT Never Smoker completed Never S moker eCW1 ([facility]) Smoking 06/19/2021 12:00:00 AM EDT Never Smoker completed Never S moker eCW1 ([facility]) Smoking 06/19/2021 12:00:00 AM EDT Never Smoker completed Never S moker eCW1 ([facility]) Smoking 06/19/2021 12:00:00 AM EDT Never Smoker completed Never S moker eCW1 ([facility]) Smoking 06/19/2021 12:00:00 AM EDT Never Smoker completed Never S moker eCW1 ([facility]) Smoking 06/19/2021 12:00:00 AM EDT Never Smoker completed Never S moker eCW1 ([facility]) Smoking 06/19/2021 12:00:00 AM EDT Never Smoker completed Never S moker eCW1 ([facility]) Smoking 06/19/2021 12:00:00 AM EDT Never Smoker completed Never S moker eCW1 ([facility]) Smoking 05/24/2021 12:00:00 AM EDT Never Smoker completed Never S moker eCW1 ([facility]) Smoking 05/24/2021 12:00:00 AM EDT Never Smoker completed Never S moker eCW1 ([facility]) Smoking 03/19/2021 12:00:00 AM EDT Never Smoker completed Never S moker eCW1 ([facility]) Smoking 01/15/2021 12:00:00 AM EST Never Smoker completed Never S moker eCW1 ([facility]) Smoking 01/15/2021 12:00:00 AM EST Never Smoker completed Never S moker eCW1 ([facility]) Smoking 01/15/2021 12:00:00 AM EST Never Smoker completed Never S moker eCW1 ([facility]) Smoking 01/15/2021 12:00:00 AM EST Never Smoker completed Never S moker eCW1 ([facility]) Smoking 01/15/2021 12:00:00 AM EST Never Smoker completed Never S moker eCW1 ([facility]) Smoking 01/15/2021 12:00:00 AM EST Never Smoker completed Never S moker eCW1 ([facility]) Smoking 01/15/2021 12:00:00 AM EST Never Smoker completed Never S moker eCW1 ([facility]) Smoking 01/15/2021 12:00:00 AM EST Never Smoker completed Never S moker eCW1 ([facility]) Smoking 12/19/2020 12:00:00 AM EST Never Smoker completed Never S moker eCW1 ([facility]) Smoking 12/19/2020 12:00:00 AM EST Never Smoker completed Never S moker eCW1 ([facility]) Smoking 12/19/2020 12:00:00 AM EST Never Smoker completed Never S moker eCW1 ([facility]) Smoking 12/19/2020 12:00:00 AM EST Never Smoker completed Never S moker eCW1 ([facility]) Smoking 12/19/2020 12:00:00 AM EST Never Smoker completed Never S moker eCW1 ([facility]) Smoking 12/19/2020 12:00:00 AM EST Never Smoker completed Never S moker eCW1 ([facility]) Smoking 12/19/2020 12:00:00 AM EST Never Smoker completed Never S moker eCW1 ([facility]) Smoking 12/19/2020 12:00:00 AM EST Never Smoker completed Never S moker eCW1 ([facility]) Smoking 12/13/2020 12:00:00 AM EST Never Smoker completed Never S moker eCW1 ([facility]) Smoking 12/13/2020 12:00:00 AM EST Never Smoker completed Never S moker eCW1 ([facility]) Smoking 12/04/2020 12:00:00 AM EST Never Smoker completed Never S moker eCW1 ([facility]) Smoking 12/04/2020 12:00:00 AM EST Never Smoker completed Never S moker eCW1 ([facility]) Smoking 12/04/2020 12:00:00 AM EST Never Smoker completed Never S moker eCW1 ([facility]) Vital Signs ID Date Data Source UNK Name Value Range Interpretation Code Description Data Source(s) Systolic blood pressure--sitting 126 mm[Hg] 126 mm[Hg] MEDENT ([facility]) Ra, large cuff Body height 62 [in_i] 62 [in_i] MEDENT ([facility] 5'2" Body weight 172.00 [lb_av] 172.00 [lb_av] MEDEN T ([facility]) Heart rate 73 /min 73 /min MEDENT ([facility] Body mass index (BMI) [Ratio] 31.5 kg/m2 31.5 k g/m2 MEDENT ([facility]) Diastolic blood pressure--sitting 80 mm[Hg] 80 mm[Hg] MEDENT ([facility]) Ra, large cuff Body weight 159 [lb_av] 159 [lb_av] [facility] Body height 62 [in_i] 62 [in_i] eCW1 ([facility]) Body mass index (BMI) [Ratio] 29.08 kg/m2 29.08 kg/m2 eCW1 ([facility]) Heart rate 82 /min 82 /min eCW1 ([facility]) Respiratory rate 20 /min 20 /min eCW1 ([facility]) Body temperature 97.2 [degF] 97.2 [degF] eCW1 ( [facility]) Systolic blood pressure 120 mm[Hg] 120 mm[Hg] e CW1 ([facility]) Diastolic blood pressure 80 mm[Hg] 80 mm[Hg] eCW1 ([facility]) Body height 62 [in_i] 62 [in_i] eCW1 ([facility]) Body mass index (BMI) [Ratio] 31.46 kg/m2 31.46 kg/m2 eCW1 ([facility]) Heart rate 72 /min 72 /min eCW1 ([facility]) Body weight 172 [lb_av] 172 [lb_av] eCW1 [facility] Body weight 78.02 kg 78.02 kg eCW1 ([facility]) Respiratory rate 20 /min 20 /min eCW1 ([facility]) Body temperature 97.8 [degF] 97.8 [degF] eCW1 ( [facility]) Systolic blood pressure 116 mm[Hg] 116 mm[Hg] e CW1 ([facility]) Diastolic blood pressure 72 mm[Hg] 72 mm[Hg] eCW1 ([facility]) Body weight 170.0 [lb_av] 170.0 [lb_av] eCW1 ([facility]) Body height 62 [in_i] 62 [in_i] eCW1 ([facility]) Body mass index (BMI) [Ratio] 31.09 kg/m2 31.09 kg/m2 eCW1 ([facility]) Heart rate 58 /min 58 /min eCW1 ([facility]) Respiratory rate 20 /min 20 /min eCW1 ([facility]) Body temperature 97.8 [degF] 97.8 [degF] eCW1 ( [facility]) Systolic blood pressure 118 mm[Hg] 118 mm[Hg] e CW1 ([facility]) Diastolic blood pressure 62 mm[Hg] 62 mm[Hg] eCW1 ([facility]) Body weight 170.0 [lb_av] 170.0 [lb_av] eCW1 ([facility]) Body height 62 [in_i] 62 [in_i] eCW1 ([facility]) Body mass index (BMI) [Ratio] 31.09 kg/m2 31.09 kg/m2 eCW1 ([facility]) Heart rate 58 /min 58 /min eCW1 ([facility]) Respiratory rate 20 /min 20 /min eCW1 ([facility]) Body temperature 97.8 [degF] 97.8 [degF] eCW1 ( [facility]) Systolic blood pressure 118 mm[Hg] 118 mm[Hg] e CW1 ([facility]) Diastolic blood pressure 62 mm[Hg] 62 mm[Hg] eCW1 ([facility]) Body weight 168.6 [lb_av] 168.6 [lb_av] eCW1 ([facility]) Body height 62 [in_i] 62 [in_i] eCW1 ([facility]) Body mass index (BMI) [Ratio] 30.83 kg/m2 30.83 kg/m2 eCW1 ([facility]) Heart rate 73 /min 73 /min eCW1 ([facility]) Respiratory rate 20 /min 20 /min eCW1 ([facility]) Body temperature 97.9 [degF] 97.9 [degF] eCW1 ( [facility]) Systolic blood pressure 122 mm[Hg] 122 mm[Hg] e CW1 ([facility]) Diastolic blood pressure 70 mm[Hg] 70 mm[Hg] eCW1 ([facility]) Body weight 165.6 [lb_av] 165.6 [lb_av] eCW1 ([facility]) Body height 62 [in_i] 62 [in_i] eCW1 ([facility]) Body mass index (BMI) [Ratio] 30.29 kg/m2 30.29 kg/m2 eCW1 ([facility]) Heart rate 72 /min 72 /min eCW1 ([facility]) Respiratory rate 20 /min 20 /min eCW1 ([facility]) Body temperature 97.4 [degF] 97.4 [degF] eCW1 ( [facility]) Systolic blood pressure 110 mm[Hg] 110 mm[Hg] e CW1 ([facility]) Diastolic blood pressure 62 mm[Hg] 62 mm[Hg] eCW1 ([facility]) Body mass index (BMI) [Ratio] 31.2 kg/m2 31.2 k g/m2 MEDENT ([facility]) Body weight 74.844 kg 74.844 kg [facility] ([facility]) [place] body weight 105 [lb_av] 105 [lb_av] MEDEN T ([facility]) Body surface area Derived from formula 1.74 m2 1.74 m2 [facility] ([facility]) Systolic blood pressure 110 mm[Hg] 110 mm[Hg] M EDENT ([facility]) Diastolic blood pressure 64 mm[Hg] 64 mm[Hg] MEDENT ([facility]) Body height 61 [in_i] 61 [in_i] MEDENT ([facility]) 5'1" Body weight 165.00 [lb_av] 165.00 [lb_av] MEDEN T ([facility]) Body mass index (BMI) [Ratio] 12.11 kg/m2 12.11 kg/m2 W1 ([facility]) Body height 62 [in_i] 62 [in_i] eCW1 ([facility]) Body weight 66.2 [lb_av] 66.2 [lb_av] eCW1 ([facility]) Heart rate 59 /min 59 /min eCW1 ([facility]) Respiratory rate 18 /min 18 /min eCW1 ([facility]) Body temperature 97.3 [degF] 97.3 [degF] eCW1 ( [facility]) Systolic blood pressure 114 mm[Hg] 114 mm[Hg] e CW1 ([facility]) Diastolic blood pressure 60 mm[Hg] 60 mm[Hg] eCW1 ([facility]) Diastolic blood pressure 70 mm[Hg] 70 mm[Hg] [facility] ([facility]) Body height 61 [in_i] 61 [in_i] [facility] ([facility]) 5'1" Body weight 165.00 [lb_av] 165.00 [lb_av] MEDEN T ([facility]) Body mass index (BMI) [Ratio] 31.2 kg/m2 31.2 k g/m2 [facility] ([facility]) Body surface area Derived from formula 1.74 m2 1.74 m2 [facility] ([facility]) [place] body weight 105 [lb_av] 105 [lb_av] [facility] Body weight 74.844 kg 74.844 kg [facility] ([facility]) Systolic blood pressure 118 mm[Hg] 118 [facility]Hg] [facility] Body weight 163 [lb_av] 163 [lb_av] eCW[facility] Body height 62 [in_i] 62 [in_i] eCW1 ([facility]) Body mass index (BMI) [Ratio] 29.81 kg/m2 29.81 kg/m2 W1 ([facility]) Heart rate 71 /min 71 /min eCW1 ([facility]) Respiratory rate 18 /min 18 /min eCW1 ([facility]) Body temperature 98.3 [degF] 98.3 [degF] eCW1 ( [facility]) Systolic blood pressure 100 mm[Hg] 100 mm[Hg] e CW1 ([facility]) Diastolic blood pressure 60 mm[Hg] 60 mm[Hg] eCW1 ([facility]) Body weight 160 [lb_av] 160 [lb_av] [facility]CW[facility] Body height 62 [in_i] 62 [in_i] eCW1 ([facility]) Body mass index (BMI) [Ratio] 29.26 kg/m2 29.26 kg/m2 [facility] ([facility]) Heart rate 78 /min 78 /min eCW1 ([facility]) Respiratory rate 16 /min 16 /min eCW1 ([facility]) Body temperature 97.3 [degF] 97.3 [degF] eCW1 ( [facility]) Systolic blood pressure 118 mm[Hg] 118 mm[Hg] e CW1 ([facility]) Diastolic blood pressure 72 mm[Hg] 72 mm[Hg] eCW1 ([facility]) Body weight 161 [lb_av] 161 [lb_av] [facility]CW[facility] Body height 62 [in_i] 62 [in_i] eCW1 ([facility]) Body mass index (BMI) [Ratio] 29.44 kg/m2 29.44 kg/m2 eCW1 ([facility]) Heart rate 75 /min 75 /min eCW1 ([facility]) Respiratory rate 18 /min 18 /min eCW1 ([facility]) Body temperature 97.1 [degF] 97.1 [degF] eCW1 ( [facility]) Systolic blood pressure 130 mm[Hg] 130 mm[Hg] e CW1 ([facility]) Diastolic blood pressure 72 mm[Hg] 72 mm[Hg] eCW1 ([facility]) Body height 61 [in_i] 61 [in_i] [facility] ([facility], ) 5'1" [place] body weight 105 [lb_av] 105 [lb_av] MEDEN T ([facility], ) Body weight 155.25 [lb_av] 155.25 [lb_av] MEDEN T ([facility], ) Body weight 70.421 kg 70.421 kg [facility] ([facility], ) Body mass index (BMI) [Ratio] 29.3 kg/m2 29.3 k g/m2 [facility] ([facility], ) Body surface area Derived from formula 1.70 m2 1.70 m2 [facility] ([facility], ) Systolic blood pressure 122 mm[Hg] 122 mm[Hg] M EDENT ([facility], ) Diastolic blood pressure 81 mm[Hg] 81 mm[Hg] PRICILLA ([facility], ) Patient Treatment Plan of Care Planned Activity Planned Date Details Description Data Source (s) Amoxicillin 875 MG / Clavulanate 125 MG Oral Tablet 08/31/20 12:00:00 AM EDT eCW1 ([facility]) Amoxicillin 875 MG / Clavulanate 125 MG Oral Tablet 08/31/20 12:00:00 AM EDT eCW1 ([facility]) Amoxicillin 875 MG / Clavulanate 125 MG Oral Tablet 08/31/20 12:00:00 AM EDT eCW1 ([facility]) Nortriptyline 50 MG Oral Capsule 06/19/2021 12:00:00 AM EDT eCW1 ([facility]) Mupirocin 20 MG/ML Topical Cream 06/19/2021 12:00:00 AM EDT eCW1 ([facility]) Polyethylene Glycol - 06/19/2021 12:00:00 AM EDT eCW1 ([facility]) Carpal Tunnel Wrist Stabilizer - 06/19/2021 12:00:00 AM EDT eCW1 ([facility]) Nortriptyline 25 MG Oral Capsule 06/19/2021 12:00:00 AM EDT eCW1 ([facility]) Mupirocin 20 MG/ML Topical Cream 06/19/2021 12:00:00 AM EDT eCW1 ([facility]) Polyethylene Glycol - 06/19/2021 12:00:00 AM EDT eCW1 ([facility]) Carpal Tunnel Wrist Stabilizer - 06/19/2021 12:00:00 AM EDT eCW1 ([facility]) Nortriptyline 25 MG Oral Capsule 06/19/2021 12:00:00 AM EDT eCW1 ([facility]) Mupirocin 20 MG/ML Topical Cream 06/19/2021 12:00:00 AM EDT eCW1 ([facility]) Polyethylene Glycol - 06/19/2021 12:00:00 AM EDT eCW1 ([facility]) Carpal Tunnel Wrist Stabilizer - 06/19/2021 12:00:00 AM EDT eCW1 ([facility]) Nortriptyline 25 MG Oral Capsule 06/19/2021 12:00:00 AM EDT eCW1 ([facility]) Mupirocin 20 MG/ML Topical Cream 06/19/2021 12:00:00 AM EDT eCW1 ([facility]) Polyethylene Glycol - 06/19/2021 12:00:00 AM EDT eCW1 ([facility]) Carpal Tunnel Wrist Stabilizer - 06/19/2021 12:00:00 AM EDT eCW1 ([facility]) Nortriptyline 25 MG Oral Capsule 06/19/2021 12:00:00 AM EDT eCW1 ([facility]) Mupirocin 20 MG/ML Topical Cream 06/19/2021 12:00:00 AM EDT eCW1 ([facility]) Polyethylene Glycol - 06/19/2021 12:00:00 AM EDT eCW1 ([facility]) Carpal Tunnel Wrist Stabilizer - 06/19/2021 12:00:00 AM EDT eCW1 ([facility]) Nortriptyline 25 MG Oral Capsule 06/19/2021 12:00:00 AM EDT eCW1 ([facility]) Mupirocin 20 MG/ML Topical Cream 06/19/2021 12:00:00 AM EDT eCW1 ([facility]) Polyethylene Glycol - 06/19/2021 12:00:00 AM EDT eCW1 ([facility]) Carpal Tunnel Wrist Stabilizer - 06/19/2021 12:00:00 AM EDT eCW1 ([facility]) Nortriptyline 25 MG Oral Capsule 06/19/2021 12:00:00 AM EDT eCW1 ([facility]) Mupirocin 20 MG/ML Topical Cream 06/19/2021 12:00:00 AM EDT eCW1 ([facility]) Polyethylene Glycol - 06/19/2021 12:00:00 AM EDT eCW1 ([facility]) Carpal Tunnel Wrist Stabilizer - 06/19/2021 12:00:00 AM EDT eCW1 ([facility]) Nortriptyline 25 MG Oral Capsule 06/19/2021 12:00:00 AM EDT eCW1 ([facility]) Mupirocin 20 MG/ML Topical Cream 06/19/2021 12:00:00 AM EDT eCW1 ([facility]) Polyethylene Glycol - 06/19/2021 12:00:00 AM EDT eCW1 ([facility]) Carpal Tunnel Wrist Stabilizer - 06/19/2021 12:00:00 AM EDT eCW1 ([facility]) Nortriptyline 25 MG Oral Capsule 06/19/2021 12:00:00 AM EDT eCW1 ([facility]) Nortriptyline 50 MG Oral Capsule 06/19/2021 12:00:00 AM EDT eCW1 ([facility]) Carpal Tunnel Wrist Stabilizer - 06/19/2021 12:00:00 AM EDT eCW1 ([facility]) Nortriptyline 25 MG Oral Capsule 06/19/2021 12:00:00 AM EDT eCW1 ([facility]) Mupirocin 20 MG/ML Topical Cream 06/19/2021 12:00:00 AM EDT eCW1 ([facility]) Polyethylene Glycol - 06/19/2021 12:00:00 AM EDT eCW1 ([facility]) Meclizine Hydrochloride 25 MG Oral Tablet 01/16/2021 12:00:00 AM ES T eCW1 ([facility]) Meclizine Hydrochloride 25 MG Oral Tablet 01/16/2021 12:00:00 AM ES T eCW1 ([facility]) Meclizine Hydrochloride 25 MG Oral Tablet 01/16/2021 12:00:00 AM ES T eCW1 ([facility]) Meclizine Hydrochloride 25 MG Oral Tablet 01/16/2021 12:00:00 AM ES T eCW1 ([facility]) Meclizine Hydrochloride 25 MG Oral Tablet 01/16/2021 12:00:00 AM ES T eCW1 ([facility]) Meclizine Hydrochloride 25 MG Oral Tablet 01/16/2021 12:00:00 AM ES T eCW1 ([facility]) Meclizine Hydrochloride 25 MG Oral Tablet 01/16/2021 12:00:00 AM ES T eCW1 ([facility]) Meclizine Hydrochloride 25 MG Oral Tablet 01/16/2021 12:00:00 AM ES T eCW1 ([facility]) tizanidine 4 MG Oral Tablet 01/08/2021 12:00:00 AM EST eCW1 ([facility]) Amoxicillin 500 MG Oral Capsule 12/21/2020 12:00:00 AM EST eCW1 ([facility]) Levofloxacin 250 MG Oral Tablet 12/21/2020 12:00:00 AM EST eCW1 ([facility]) pantoprazole 40 MG Delayed Release Oral Tablet 12/21/2020 12:00:00 AM EST eCW1 ([facility]) Amoxicillin 500 MG Oral Capsule 12/21/2020 12:00:00 AM EST eCW1 ([facility]) Levofloxacin 250 MG Oral Tablet 12/21/2020 12:00:00 AM EST eCW1 ([facility]) pantoprazole 40 MG Delayed Release Oral Tablet 12/21/2020 12:00:00 AM EST eCW1 ([facility]) Amoxicillin 500 MG Oral Capsule 12/21/2020 12:00:00 AM EST eCW1 ([facility]) Levofloxacin 250 MG Oral Tablet 12/21/2020 12:00:00 AM EST eCW1 ([facility]) pantoprazole 40 MG Delayed Release Oral Tablet 12/21/2020 12:00:00 AM EST eCW1 ([facility]) Amoxicillin 500 MG Oral Capsule 12/21/2020 12:00:00 AM EST eCW1 ([facility]) Levofloxacin 250 MG Oral Tablet 12/21/2020 12:00:00 AM EST eCW1 ([facility]) pantoprazole 40 MG Delayed Release Oral Tablet 12/21/2020 12:00:00 AM EST eCW1 ([facility]) Augmentin 875-125 MG 12/04/2020 12:00:00 AM EST eCW1 ([facility]) Augmentin 875-125 MG 12/04/2020 12:00:00 AM EST eCW1 ([facility]) Augmentin 875-125 MG 12/04/2020 12:00:00 AM EST eCW1 ([facility])
--- NOTE | 2021-09-16 07:52 | ECGEPIP ---
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
== END 2021-09-16 00:04 | disposition home or self-care (01) ==
LOC: M ED 20:30
DX: I48.92 Unspecified atrial flutter (principal); I44.2 Atrioventricular block, complete; I48.91 Unspecified atrial fibrillation; E11.9 Type 2 diabetes mellitus without complications; E78.5 Hyperlipidemia, unspecified; Z87.891 Personal history of nicotine dependence; Z79.899 Other long term (current) drug therapy

== ENCOUNTER → 2021-09-18 | Outpatient (CLI) | payer BC ==
[~2021-09-18] MED LIST changes: +METO50TA7 PO
--- NOTE | 2021-09-18 15:57 | REP ---
INDICATION: SYNCOPE AND COLLAPSE COMPARISON: None. TECHNIQUE: Real-time ultrasound evaluation and duplex Doppler interrogation of the extracranial carotid vasculature is performed. FINDINGS: There is mild plaquing and narrowing in both carotid bulbs extending into the internal and external carotid arteries. Luminal narrowing is less than 50%. There is no evidence of hemodynamically significant stenosis of either internal carotid artery. Normal flow velocities are seen. The vertebral arteries demonstrate normal direction of flow. RIGHT LEFT Peak systolic velocity ICA 77.1 cm/s 74.9 cm/s End diastolic velocity ICA 27.5 cm/s 27.5 cm/s Peak systolic velocity CCA 110.5 cm/s 93.2cm/s Peak systolic velocity ECA 105.7 cm/s 119.6 cm/s ICA/CCA ratio 0.70 0.80 IMPRESSION: Bilateral luminal narrowing of the internal carotid arteries less than 50%. No evidence of hemodynamically significant stenosis. <Electronically signed by Estevan Cee > 09/18/21 [id number]
== END ==
LOC: M RAD 15:17
PROVIDERS: ATTEND Physician Assistant
DX: I65.29 Occlusion and stenosis of unspecified carotid artery (principal); R55 Syncope and collapse

== ENCOUNTER → 2021-10-09 | Outpatient (CLI) | payer BC ==
[2021-10-09 13:54] LABS: BASO # 0.1 10^3/uL (0.0-0.2); BASO % 1.3 % (0.0-1.0); EOS # 0.2 10^3/uL (0.0-0.5); EOS % 3.7 % (0.0-3.0); HEMATOCRIT 42.2 % (36.0-47.0); HEMOGLOBIN 13.4 g/dl (12.0-15.5); LYMPH % 42.9 % (24.0-44.0); MEAN CORPUSCULAR HEMOGLOBIN 29.4 pg (27.0-33.0); MEAN CORPUSCULAR HGB CONC 31.8 g/dl (32.0-36.5); MEAN CORPUSCULAR VOLUME 92.5 fl (80.0-96.0); MONO # 0.4 10^3/uL (0.0-0.8); MONO % 8.9 % (2.0-8.0); PLATELET COUNT, AUTOMATED 269 10^3/uL (150-450); RED BLOOD COUNT 4.56 10^6/uL (4.00-5.40); WHITE BLOOD COUNT 4.6 10^3/uL (4.0-10.0)
[2021-10-09 14:14] LABS: HEMOGLOBIN A1c 6.7 %
[2021-10-09 14:27] LABS: ALBUMIN 4.2 GM/DL (3.2-5.2); ALT/SGPT 36 U/L (12-78); BILIRUBIN,TOTAL 0.7 MG/DL (0.2-1.0); BLOOD UREA NITROGEN 8 MG/DL (7-18); CALCIUM LEVEL 9.7 MG/DL (8.5-10.1); CARBON DIOXIDE LEVEL 28 MEQ/L (21-32); CHLORIDE LEVEL 106 MEQ/L (98-107); CREATININE FOR GFR 0.66 MG/DL (0.55-1.30); FERRITIN 31 NG/ML (8-252); FREE T4 1.13 NG/DL (0.76-1.46); GLOMERULAR FILTRATION RATE > 60.0 (>51); GLUCOSE, FASTING 108 MG/DL (70-100); NT-PRO BNP 22 PG/ML (<125); POTASSIUM SERUM 4.2 MEQ/L (3.5-5.1); PTH INTACT 140.9 PG/ML (18.5-88.0); SODIUM LEVEL 140 MEQ/L (136-145); THYROID PEROXIDASE ANTIBODY < 28.0 U/ML (<60.0); TOTAL 25(OH) VITAMIN D 41.3 NG/ML (30.0-100.0); TOTAL PROTEIN 7.4 GM/DL (6.4-8.2); VITAMIN B12 LEVEL 997 PG/ML (247-911)
== END ==
LOC: M PLALAB 10:04
PROVIDERS: ATTEND Family Medicine
DX: D50.9 Iron deficiency anemia, unspecified (principal); E55.9 Vitamin D deficiency, unspecified; E11.8 Type 2 diabetes mellitus with unspecified complications

== ENCOUNTER → 2021-10-09 | Outpatient (CLI) | payer BC ==
[2021-10-09 13:53] LABS: HEMATOCRIT 42.2 % (36.0-47.0); HEMOGLOBIN 13.5 g/dl (12.0-15.5); MEAN CORPUSCULAR HEMOGLOBIN 29.7 pg (27.0-33.0); PLATELET COUNT, AUTOMATED 256 10^3/uL (150-450); RED BLOOD COUNT 4.54 10^6/uL (4.00-5.40); WHITE BLOOD COUNT 4.5 10^3/uL (4.0-10.0)
[2021-10-09 14:32] LABS: ALBUMIN 4.1 GM/DL (3.2-5.2); ALT/SGPT 37 U/L (12-78); BILIRUBIN,TOTAL 0.7 MG/DL (0.2-1.0); BLOOD UREA NITROGEN 9 MG/DL (7-18); CALCIUM LEVEL 9.5 MG/DL (8.5-10.1); CARBON DIOXIDE LEVEL 27 MEQ/L (21-32); CHLORIDE LEVEL 105 MEQ/L (98-107); CREATININE FOR GFR 0.62 MG/DL (0.55-1.30); GLOMERULAR FILTRATION RATE > 60.0 (>51); GLUCOSE, FASTING 107 MG/DL (70-100); NT-PRO BNP 21 PG/ML (<125); POTASSIUM SERUM 4.3 MEQ/L (3.5-5.1); SODIUM LEVEL 140 MEQ/L (136-145); TOTAL PROTEIN 7.5 GM/DL (6.4-8.2)
== END ==
LOC: M PLALAB 10:01
PROVIDERS: ATTEND Physician Assistant
DX: R06.02 Shortness of breath (principal)

== ENCOUNTER 2021-11-27 18:57 | Emergency (ER) | payer BC ==
[~2021-11-27] VITALS: Ht 154.9 cm; Wt 78.2 kg
[2021-11-27 18:58] VITALS: BP 133/66
== END 2021-11-28 04:15 | disposition left against medical advice (07) ==
LOC: M ED 18:57
DX: Z53.21 Procedure and treatment not carried out due to patient leaving prior to being seen by health care provider (principal)

== ENCOUNTER → 2021-12-08 | Outpatient (REF) | LOC: M LABSMTC 13:14 | PROVIDERS: ATTEND Pediatrics | DX: Z20.822 Contact with and (suspected) exposure to COVID-19 (principal) ==

== ENCOUNTER → 2021-12-26 | Outpatient (CLI) | payer BC | LOC: M WHC 07:25 | PROVIDERS: ATTEND Family Medicine | DX: Z12.31 Encounter for screening mammogram for malignant neoplasm of breast (principal); Z13.820 Encounter for screening for osteoporosis; M85.851 Other specified disorders of bone density and structure, right thigh; M85.852 Other specified disorders of bone density and structure, left thigh ==

== ENCOUNTER → 2022-01-08 | Outpatient (CLI) | payer BC | LOC: M PLAIMG 11:14 | PROVIDERS: ATTEND Family Medicine | DX: J32.9 Chronic sinusitis, unspecified (principal) ==

== ENCOUNTER → 2022-02-21 | Outpatient (CLI) | payer BC ==
[2022-02-21 17:09] LABS: BASO % 0.8 % (0.0-1.0); EOS # 0.2 10^3/uL (0.0-0.5); EOS % 4.4 % (0.0-3.0); HEMATOCRIT 41.5 % (36.0-47.0); LYMPH # 1.3 10^3/uL (1.5-5.0); LYMPH % 28.4 % (24.0-44.0); MEAN CORPUSCULAR HEMOGLOBIN 28.8 pg (27.0-33.0); MEAN CORPUSCULAR HGB CONC 31.3 g/dl (32.0-36.5); MONO # 0.4 10^3/uL (0.0-0.8); MONO % 8.1 % (2.0-8.0); NEUTROPHILS # 2.7 10^3/uL (1.5-8.5); NEUTROPHILS % 58.1 % (36.0-66.0); PLATELET COUNT, AUTOMATED 270 10^3/uL (150-450); RED BLOOD COUNT 4.51 10^6/uL (4.00-5.40); WHITE BLOOD COUNT 4.7 10^3/uL (4.0-10.0)
[2022-02-21 17:10] LABS: ALBUMIN 3.8 GM/DL (3.2-5.2); ALT/SGPT 26 U/L (12-78); BILIRUBIN,TOTAL 0.6 MG/DL (0.2-1.0); BLOOD UREA NITROGEN 9 MG/DL (7-18); C REACTIVE PROTEIN QUANTITATIV 0.51 MG/DL (0.00-0.30); CALCIUM LEVEL 9.5 MG/DL (8.5-10.1); CARBON DIOXIDE LEVEL 30 MEQ/L (21-32); CHLORIDE LEVEL 109 MEQ/L (98-107); CHOLESTEROL LEVEL 160 MG/DL (<200); CHOLESTEROL RISK RATIO 2.077 (<5); CREATININE FOR GFR 0.61 MG/DL (0.55-1.30); FERRITIN 20 NG/ML (8-252); GLOMERULAR FILTRATION RATE > 60.0 (>51); GLUCOSE, FASTING 91 MG/DL (70-100); HDL CHOLESTEROL 77 MG/DL (>40); LDL CHOLESTEROL 68 MG/DL (<100); NON-HDL-C 83 MG/DL; POTASSIUM SERUM 3.9 MEQ/L (3.5-5.1); SODIUM LEVEL 142 MEQ/L (136-145); TRIGLYCERIDES LEVEL 74 MG/DL (<150)
[2022-02-21 17:18] LABS: PTH INTACT 83.2 PG/ML (18.5-88.0); TOTAL 25(OH) VITAMIN D 22.7 NG/ML (30.0-100.0)
[2022-02-21 17:59] LABS: HEMOGLOBIN A1c 6.9 %
== END ==
LOC: M PLALAB 14:53
PROVIDERS: ATTEND Family Medicine
DX: D50.9 Iron deficiency anemia, unspecified (principal); E55.9 Vitamin D deficiency, unspecified; E11.8 Type 2 diabetes mellitus with unspecified complications; J30.9 Allergic rhinitis, unspecified

== ENCOUNTER → 2022-03-25 | Outpatient (REF) | LOC: M EMP 11:52 | PROVIDERS: ATTEND Family Medicine | DX: Z11.52 Encounter for screening for COVID-19 (principal) ==

== ENCOUNTER 2022-04-12 20:45 | Observation (INO) | payer BC ==
[~2022-04-12] VITALS: Ht 154.9 cm; Wt 75.5 kg
[2022-04-12] MEDS ORDERED: PANTOPRAZOLE 40MG VIAL IV ONE (21:30)
[2022-04-12] MEDS ORDERED: ISOVUE-370 76% 100ML VIAL As Ordered ONE (21:34)
[2022-04-12 22:50] LABS: BASO # 0.1 10^3/uL (0.0-0.2); BASO % 1.2 % (0.0-1.0); EOS # 0.1 10^3/uL (0.0-0.5); EOS % 2.8 % (0.0-3.0); HEMATOCRIT 32.9 % (36.0-47.0); HEMOGLOBIN 10.6 g/dl (12.0-15.5); LYMPH # 2.5 10^3/uL (1.5-5.0); LYMPH % 49.5 % (24.0-44.0); MEAN CORPUSCULAR HEMOGLOBIN 29.3 pg (27.0-33.0); MEAN CORPUSCULAR HGB CONC 32.2 g/dl (32.0-36.5); MEAN CORPUSCULAR VOLUME 90.9 fl (80.0-96.0); MONO # 0.3 10^3/uL (0.0-0.8); MONO % 5.9 % (2.0-8.0); NEUTROPHILS # 2.1 10^3/uL (1.5-8.5); NEUTROPHILS % 40.6 % (36.0-66.0); PLATELET COUNT, AUTOMATED 245 10^3/uL (150-450); RED BLOOD COUNT 3.62 10^6/uL (4.00-5.40); WHITE BLOOD COUNT 5.1 10^3/uL (4.0-10.0)
[2022-04-12 23:01] LABS: INR 0.89; PROTHROMBIN TIME 12.4 SECONDS (12.7-14.5)
[2022-04-12 23:02] LABS: PARTIAL THROMBOPLASTIN TIME 27.9 SECONDS (25.9-37.0)
[2022-04-12 23:17] LABS: ALBUMIN 3.4 GM/DL (3.2-5.2); ALT/SGPT 23 U/L (12-78); BILIRUBIN,DIRECT 0.1 MG/DL (0.0-0.2); BILIRUBIN,TOTAL 0.5 MG/DL (0.2-1.0); BLOOD UREA NITROGEN 12 MG/DL (7-18); CALCIUM LEVEL 9.5 MG/DL (8.5-10.1); CARBON DIOXIDE LEVEL 26 MEQ/L (21-32); CHLORIDE LEVEL 109 MEQ/L (98-107); GLOMERULAR FILTRATION RATE > 60.0 (>51); GLUCOSE, FASTING 88 MG/DL (70-100); LIPASE 183 U/L (73-393); POTASSIUM SERUM 3.9 MEQ/L (3.5-5.1); SODIUM LEVEL 143 MEQ/L (136-145); TOTAL PROTEIN 6.7 GM/DL (6.4-8.2)
[2022-04-12] MEDS ORDERED: DIGO0.259 PO (23:28)
[2022-04-12] MEDS ORDERED: MONT10TA97 PO (23:28)
[2022-04-12] MEDS ORDERED: METO50TA7 PO (23:28)
[2022-04-12] MEDS ORDERED: POTA10808 PO (23:28)
[2022-04-12] MEDS ORDERED: HOME MED LIST COMPLETE! XX SCH (23:30)
[2022-04-13] VITALS (9 sets, daily range): BP systolic 82–113; BP diastolic 52–83
[2022-04-13 03:04] LABS: RSV AMPLIFICATION NEGATIVE (NEGATIVE)
[2022-04-13] MEDS ORDERED: GLUCOSE 4GM CHEW TABLET PO PRN (03:15)
[2022-04-13] MEDS ORDERED: DEXTROSE 50% 50 ML SYRINGE IV PRN (03:15)
[2022-04-13] MEDS ORDERED: GLUCAGON INJ 1MG VIAL SC PRN (03:15)
[2022-04-13] MEDS: NS 1,000 ML IV SCH ×2 (03:15→18:08)
[2022-04-13] MEDS ORDERED: ACETAMINOPHEN *IV* 1,000 MG in IV 1 EA IV ONE (04:25)
[2022-04-13 06:06] LABS: HEMATOCRIT 30.7 % (36.0-47.0); HEMOGLOBIN 9.9 g/dl (12.0-15.5)
[2022-04-13] MEDS: INSULIN LISPRO (NovoLOG) PER UNIT SC SCH ×4 (06:13→21:00)
[2022-04-13 06:29] LABS: BLOOD UREA NITROGEN 10 MG/DL (7-18); CALCIUM LEVEL 9.2 MG/DL (8.5-10.1); CARBON DIOXIDE LEVEL 29 MEQ/L (21-32); CHLORIDE LEVEL 109 MEQ/L (98-107); CREATININE FOR GFR 0.52 MG/DL (0.55-1.30); GLOMERULAR FILTRATION RATE > 60.0 (>51); GLUCOSE, FASTING 105 MG/DL (70-100); POTASSIUM SERUM 3.6 MEQ/L (3.5-5.1); SODIUM LEVEL 143 MEQ/L (136-145)
[2022-04-13] MEDS: PANTOPRAZOLE 40MG VIAL IV SCH ×2 (08:55→21:23)
[2022-04-13 09:20] LABS: HEMATOCRIT 30.9 % (36.0-47.0)
[2022-04-13] MEDS ORDERED: FLUTICASONE PROP 0.05% NASAL SPRAY 16 GM (FLONASE) NARES PRN (10:10)
[2022-04-13] MEDS: METOPROLOL TART 50 MG TAB PO SCH ×2 (11:30→21:00)
[2022-04-13] MEDS: MIRALAX *UNIT DOSE* 17GM PACKET PO SCH ×2 (11:31→21:23)
[2022-04-13] MEDS: NORTRIPTYLINE 25 MG CAP PO SCH (13:06)
[2022-04-13] MEDS ORDERED: ACETAMINOPHEN TAB 650MG DOSE (2X325MG) PO ONE (14:25)
[2022-04-13] MEDS: DIGOXIN 0.25 MG TAB PO SCH (15:09)
[2022-04-13 15:27] LABS: HEMOGLOBIN 10.9 g/dl (12.0-15.5)
[2022-04-13] MEDS ORDERED: LR 1,000 ML IV ONE (16:50)
[2022-04-13] MEDS ORDERED: METOPROLOL TART 12.5 MG PER 1/2 TAB PO ONE ×2 (16:50→18:05)
[2022-04-13] MEDS ORDERED: NS 500 ML IV ONE (20:45)
[2022-04-13 21:13] LABS: HEMOGLOBIN 11.2 g/dl (12.0-15.5)
[2022-04-13] MEDS: MONTELUKAST 10 MG TAB PO SCH (21:23)
[2022-04-13] MEDS: MAGNESIUM OXIDE 400MG TAB (MAG-OX) PO SCH (21:23)
[2022-04-13] MEDS: ATORVASTATIN 20 MG TAB PO SCH (21:24)
[2022-04-13] MEDS: LORATADINE 10 MG TAB PO SCH (21:24)
[2022-04-14] VITALS (12 sets, daily range): BP systolic 78–109; BP diastolic 48–74
[2022-04-14] MEDS ORDERED: NS 500 ML IV ONE (00:15)
[2022-04-14] MEDS ORDERED: NS 1,000 ML IV ONE (01:50)
[2022-04-14] MEDS: ACETAMINOPHEN TAB 650MG DOSE (2X325MG) PO PRN (03:32)
[2022-04-14 05:01] LABS: HEMATOCRIT 32.1 % (36.0-47.0); HEMOGLOBIN 10.2 g/dl (12.0-15.5); MEAN CORPUSCULAR HEMOGLOBIN 29.1 pg (27.0-33.0); MEAN CORPUSCULAR HGB CONC 31.8 g/dl (32.0-36.5); MEAN CORPUSCULAR VOLUME 91.7 fl (80.0-96.0); PLATELET COUNT, AUTOMATED 221 10^3/uL (150-450); WHITE BLOOD COUNT 4.3 10^3/uL (4.0-10.0)
[2022-04-14 05:26] LABS: BLOOD UREA NITROGEN 6 MG/DL (7-18); CALCIUM LEVEL 8.1 MG/DL (8.5-10.1); CARBON DIOXIDE LEVEL 26 MEQ/L (21-32); CHLORIDE LEVEL 112 MEQ/L (98-107); CREATININE FOR GFR 0.42 MG/DL (0.55-1.30); GLOMERULAR FILTRATION RATE > 60.0 (>51); GLUCOSE, FASTING 102 MG/DL (70-100); MAGNESIUM LEVEL 1.9 MG/DL (1.8-2.4); PHOSPHORUS LEVEL 3.4 MG/DL (2.5-4.9); POTASSIUM SERUM 3.8 MEQ/L (3.5-5.1); SODIUM LEVEL 143 MEQ/L (136-145)
[2022-04-14] MEDS: NS 1,000 ML IV SCH (06:24)
[2022-04-14] MEDS: INSULIN LISPRO (NovoLOG) PER UNIT SC SCH ×4 (07:30→19:49)
[2022-04-14] MEDS: MIRALAX *UNIT DOSE* 17GM PACKET PO SCH ×2 (08:23→19:47)
[2022-04-14] MEDS: PANTOPRAZOLE 40MG VIAL IV SCH ×2 (08:23→19:48)
[2022-04-14] MEDS: NORTRIPTYLINE 25 MG CAP PO SCH (08:23)
[2022-04-14] MEDS: METOPROLOL TART 50 MG TAB PO SCH (08:24)
[2022-04-14] MEDS ORDERED: FLUBLOK(EGG FREE)(QUAD)INFLUENZA VACC 0.5ML SYRINGE 18YRS & OLDER IM ONE (09:00)
[2022-04-14] MEDS ORDERED: ENOXAPARIN 80MG/0.8ML SYRINGE (J1650 PER 10MG) SC SCH (09:00)
[2022-04-14] MEDS ORDERED: LR 1,000 ML IV ONE (10:10)
[2022-04-14] MEDS ORDERED: GOLYTELY SOLN 4000 ML BTL PO ONE (14:00)
[2022-04-14] MEDS: LORATADINE 10 MG TAB PO SCH (19:50)
[2022-04-14] MEDS: ATORVASTATIN 20 MG TAB PO SCH (19:50)
[2022-04-14] MEDS: DIGOXIN 0.25 MG TAB PO SCH (19:51)
[2022-04-14] MEDS: MONTELUKAST 10 MG TAB PO SCH (19:51)
[2022-04-14] MEDS: METOPROLOL TART 25 MG TABLET PO SCH (19:51)
[2022-04-14] MEDS: MAGNESIUM OXIDE 400MG TAB (MAG-OX) PO SCH (19:51)
[2022-04-14] MEDS ORDERED: BISACODYL 5 MG TAB PO ONE (20:00)
[2022-04-14] MEDS ORDERED: diphenhydrAMINE 25MG CAP PO ONE (23:00)
[2022-04-15] VITALS (9 sets, daily range): BP systolic 100–159; BP diastolic 58–90
[2022-04-15] MEDS: ACETAMINOPHEN TAB 650MG DOSE (2X325MG) PO PRN ×2 (05:44→23:23)
[2022-04-15 05:48] LABS: HEMATOCRIT 30.6 % (36.0-47.0); HEMOGLOBIN 9.5 g/dl (12.0-15.5); MEAN CORPUSCULAR HEMOGLOBIN 28.8 pg (27.0-33.0); MEAN CORPUSCULAR VOLUME 92.7 fl (80.0-96.0); PLATELET COUNT, AUTOMATED 198 10^3/uL (150-450); WHITE BLOOD COUNT 4.9 10^3/uL (4.0-10.0)
[2022-04-15 06:08] LABS: BLOOD UREA NITROGEN 3 MG/DL (7-18); CALCIUM LEVEL 8.9 MG/DL (8.5-10.1); CARBON DIOXIDE LEVEL 27 MEQ/L (21-32); CHLORIDE LEVEL 113 MEQ/L (98-107); GLOMERULAR FILTRATION RATE > 60.0 (>51); GLUCOSE, FASTING 86 MG/DL (70-100); MAGNESIUM LEVEL 2.4 MG/DL (1.8-2.4); PHOSPHORUS LEVEL 3.4 MG/DL (2.5-4.9); POTASSIUM SERUM 3.6 MEQ/L (3.5-5.1); SODIUM LEVEL 147 MEQ/L (136-145)
[2022-04-15] MEDS: INSULIN LISPRO (NovoLOG) PER UNIT SC SCH ×4 (07:30→21:00)
[2022-04-15] MEDS: PANTOPRAZOLE 40MG VIAL IV SCH (08:11)
[2022-04-15] MEDS: NORTRIPTYLINE 25 MG CAP PO SCH (08:11)
[2022-04-15] MEDS: METOPROLOL TART 25 MG TABLET PO SCH ×2 (08:22→21:09)
[2022-04-15] MEDS: MIRALAX *UNIT DOSE* 17GM PACKET PO SCH ×2 (08:22→21:07)
[2022-04-15] MEDS ORDERED: fentaNYL 100 MCG/2 ML INJECTION As Ordered ONE (15:00)
[2022-04-15] MEDS ORDERED: LIDOCAINE 2% 100MG/5ML SDV (FOR ANES.) As Ordered ONE (15:00)
[2022-04-15] MEDS ORDERED: LR 1,000 ML IV SCH (15:05)
[2022-04-15] MEDS ORDERED: propofoL 200 MG/20 ML VIAL As Ordered ONE (15:16)
[2022-04-15] MEDS: MAGNESIUM OXIDE 400MG TAB (MAG-OX) PO SCH (21:07)
[2022-04-15] MEDS: ATORVASTATIN 20 MG TAB PO SCH (21:07)
[2022-04-15] MEDS: DIGOXIN 0.25 MG TAB PO SCH (21:08)
[2022-04-15] MEDS: MONTELUKAST 10 MG TAB PO SCH (21:08)
[2022-04-15] MEDS: LORATADINE 10 MG TAB PO SCH (21:08)
[2022-04-16 00:13] VITALS: BP 88/65
[2022-04-16 00:28] VITALS: BP 107/74
[2022-04-16] MEDS ORDERED: NS 1,000 ML IV ONE (00:30)
[2022-04-16 01:57] VITALS: BP 108/78
[2022-04-16 03:57] VITALS: BP 90/64
[2022-04-16 04:59] LABS: HEMOGLOBIN 10.9 g/dl (12.0-15.5); MEAN CORPUSCULAR HEMOGLOBIN 29.5 pg (27.0-33.0); MEAN CORPUSCULAR HGB CONC 32.1 g/dl (32.0-36.5); MEAN CORPUSCULAR VOLUME 91.9 fl (80.0-96.0); PLATELET COUNT, AUTOMATED 212 10^3/uL (150-450); WHITE BLOOD COUNT 5.2 10^3/uL (4.0-10.0)
[2022-04-16 05:31] LABS: BLOOD UREA NITROGEN 4 MG/DL (7-18); CALCIUM LEVEL 8.6 MG/DL (8.5-10.1); CARBON DIOXIDE LEVEL 27 MEQ/L (21-32); CHLORIDE LEVEL 112 MEQ/L (98-107); CREATININE FOR GFR 0.41 MG/DL (0.55-1.30); GLOMERULAR FILTRATION RATE > 60.0 (>51); GLUCOSE, FASTING 96 MG/DL (70-100); MAGNESIUM LEVEL 2.2 MG/DL (1.8-2.4); PHOSPHORUS LEVEL 4.2 MG/DL (2.5-4.9); POTASSIUM SERUM 4.1 MEQ/L (3.5-5.1); SODIUM LEVEL 143 MEQ/L (136-145)
[2022-04-16] MEDS ORDERED: OMEPRAZOLE 20MG CAP PO SCH (06:00)
[2022-04-16] MEDS: INSULIN LISPRO (NovoLOG) PER UNIT SC SCH ×2 (07:16→11:49)
[2022-04-16 08:00] VITALS: BP 104/66
[2022-04-16] MEDS: METOPROLOL TART 25 MG TABLET PO SCH (08:05)
[2022-04-16] MEDS: MIRALAX *UNIT DOSE* 17GM PACKET PO SCH (08:06)
[2022-04-16] MEDS: NORTRIPTYLINE 25 MG CAP PO SCH (08:10)
[2022-04-16] MEDS ORDERED: METO1TAB87 PO (11:51)
[2022-04-16] MEDS ORDERED: OMEP-173 PO (11:51)
[2022-04-16 12:00] VITALS: BP 98/62
[2022-04-16] MEDS ORDERED: RIVAROXABAN 20 MG TAB (XARELTO) PO SCH (18:00)
== END 2022-04-16 14:10 | disposition home or self-care (01) ==
LOC: M ED 20:45 → M ED INP 20:46 → ENRESERV 04-13 04:09 → M MS5PR 04-13 04:45 → M PCU 04-13 17:16
PROVIDERS: ADMIT Internal Medicine; ATTEND Internal Medicine
DX: D62 Acute posthemorrhagic anemia (principal); K92.1 Melena; K64.8 Other hemorrhoids; D12.7 Benign neoplasm of rectosigmoid junction; D12.0 Benign neoplasm of cecum; Z98.84 Bariatric surgery status; Z98.0 Intestinal bypass and anastomosis status; I48.91 Unspecified atrial fibrillation; Z79.01 Long term (current) use of anticoagulants; Z79.899 Other long term (current) drug therapy; Z79.84 Long term (current) use of oral hypoglycemic drugs; E11.9 Type 2 diabetes mellitus without complications
CPT/HCPCS: 36415; 43235; 45385; 74177; 80048; 80076; 80162; 82270; 83690; 83735; 84100; 85014; 85018; 85025; 85027; 85610; 85730; 86850; 86900; 86901; 87631; 88305; 93005; 93041; 96374; 96375; 96376; 99285; C9113; J0131; J1815; J3010; Q9967

== ENCOUNTER → 2022-04-19 | Outpatient (CLI) | payer BC ==
[~2022-04-19] MED LIST changes: +DIGO0.259 PO; +METO1TAB87 PO; +MONT10TA97 PO; +OMEP-173 PO; +POTA10808 PO
[2022-04-19 12:23] LABS: BASO # 0.1 10^3/uL (0.0-0.2); BASO % 1.4 % (0.0-1.0); EOS # 0.2 10^3/uL (0.0-0.5); EOS % 3.5 % (0.0-3.0); HEMATOCRIT 33.5 % (36.0-47.0); HEMOGLOBIN 10.4 g/dl (12.0-15.5); LYMPH # 2.1 10^3/uL (1.5-5.0); LYMPH % 41.5 % (24.0-44.0); MEAN CORPUSCULAR HEMOGLOBIN 29.2 pg (27.0-33.0); MEAN CORPUSCULAR VOLUME 94.1 fl (80.0-96.0); MONO # 0.4 10^3/uL (0.0-0.8); MONO % 8.6 % (2.0-8.0); NEUTROPHILS # 2.3 10^3/uL (1.5-8.5); NEUTROPHILS % 44.6 % (36.0-66.0); PLATELET COUNT, AUTOMATED 284 10^3/uL (150-450); RED BLOOD COUNT 3.56 10^6/uL (4.00-5.40); WHITE BLOOD COUNT 5.1 10^3/uL (4.0-10.0)
== END ==
LOC: M PLALAB 09:20
PROVIDERS: ATTEND Nurse Practitioner Family
DX: D64.9 Anemia, unspecified (principal)

== ENCOUNTER → 2022-07-05 | Outpatient (CLI) | payer BC ==
[2022-07-05 10:16] LABS: BASO % 0.8 % (0.0-1.0); EOS # 0.1 10^3/uL (0.0-0.5); EOS % 1.6 % (0.0-3.0); HEMATOCRIT 34.5 % (36.0-47.0); HEMOGLOBIN 10.3 g/dl (12.0-15.5); LYMPH # 1.5 10^3/uL (1.5-5.0); LYMPH % 30.6 % (24.0-44.0); MEAN CORPUSCULAR HEMOGLOBIN 25.3 pg (27.0-33.0); MEAN CORPUSCULAR HGB CONC 29.9 g/dl (32.0-36.5); MEAN CORPUSCULAR VOLUME 84.8 fl (80.0-96.0); MONO # 0.3 10^3/uL (0.0-0.8); MONO % 6.9 % (2.0-8.0); NEUTROPHILS % 59.9 % (36.0-66.0); PLATELET COUNT, AUTOMATED 257 10^3/uL (150-450); RED BLOOD COUNT 4.07 10^6/uL (4.00-5.40)
[2022-07-05 10:55] LABS: PERCENT SATURATION 7.2 % (13.2-45.0)
== END ==
LOC: M LAB 09:25
PROVIDERS: ATTEND Physician Assistant Medical
DX: D50.9 Iron deficiency anemia, unspecified (principal)

== ENCOUNTER 2022-07-31 10:26 | Outpatient (CLI) | payer BC ==
[~2022-07-31] VITALS: Ht 154.9 cm; Wt 77.3 kg
[~2022-07-31 10:26] MED LIST changes: +ALBUTEROL SULFATE 2.5 MG/0.5 ML INH NEB SOLN INH PRN; +EPINEPHrine INJ 1 MG/ML 1ML AMP IM PRN; +diphenhydrAMINE 50MG/ML VIAL (J1200) IV PRN; +methylPREDNISolone 125MG 2ML VIAL IV PRN
[2022-07-31 10:30] VITALS: BP 134/68
[2022-07-31] MEDS ORDERED: NS 1,000 ML IV SCH (10:30)
[2022-07-31] MEDS ORDERED: IRON SUCROSE 500 MG in NS 250 ML OVER 4 HRS IV ONE (10:30)
[2022-07-31] MEDS ORDERED: B-12100010 PO (10:53)
[2022-07-31 11:10] VITALS: BP 112/56
[2022-07-31 12:10] VITALS: BP 133/68
[2022-07-31 13:10] VITALS: BP 107/63
[2022-07-31 14:55] VITALS: BP 136/79
== END 2022-07-31 15:00 | disposition home or self-care (01) ==
LOC: M INFU 10:26
PROVIDERS: ATTEND Family Medicine
DX: D50.9 Iron deficiency anemia, unspecified (principal)
CPT/HCPCS: 96365; 96366; J1756

== ENCOUNTER 2022-08-07 08:00 | Outpatient (CLI) | payer BC ==
[~2022-08-07] VITALS: Ht 154.9 cm; Wt 77.7 kg
[~2022-08-07 08:00] MED LIST changes: +B-12100010 PO; +IRON SUCROSE 500 MG in NS 250 ML OVER 4 HRS IV ONE; +NS 1,000 ML IV SCH
[2022-08-07 08:04] VITALS: BP 131/65
[2022-08-07 09:00] VITALS: BP 116/62
[2022-08-07 11:00] VITALS: BP 112/60
[2022-08-07 12:00] VITALS: BP 111/61
[2022-08-07 12:30] VITALS: BP 125/69
== END 2022-08-07 12:30 | disposition home or self-care (01) ==
LOC: M INFU 08:00
PROVIDERS: ATTEND Family Medicine
DX: D50.9 Iron deficiency anemia, unspecified (principal)
CPT/HCPCS: 96365; 96366; J1756

== ENCOUNTER → 2022-08-08 | Outpatient (REF) ==
[~2022-08-08] MED LIST changes: -ALBUTEROL SULFATE 2.5 MG/0.5 ML INH NEB SOLN INH PRN; -EPINEPHrine INJ 1 MG/ML 1ML AMP IM PRN; -IRON SUCROSE 500 MG in NS 250 ML OVER 4 HRS IV ONE; -NS 1,000 ML IV SCH; -diphenhydrAMINE 50MG/ML VIAL (J1200) IV PRN; -methylPREDNISolone 125MG 2ML VIAL IV PRN
== END ==
LOC: M LABSMTC 11:27
PROVIDERS: ATTEND Family Medicine
DX: Z20.822 Contact with and (suspected) exposure to COVID-19 (principal); Z11.52 Encounter for screening for COVID-19

== ENCOUNTER → 2022-08-22 | Outpatient (CLI) | payer BC | LOC: M RAD 13:54 | PROVIDERS: ATTEND Physician Assistant Medical | DX: D50.9 Iron deficiency anemia, unspecified (principal) ==

== ENCOUNTER → 2022-09-20 | Outpatient (REF) ==
[2022-09-20 16:11] LABS: RSV AMPLIFICATION NEGATIVE (NEGATIVE)
== END ==
LOC: M EMP 15:22
PROVIDERS: ATTEND Family Medicine
DX: Z20.828 Contact with and (suspected) exposure to other viral communicable diseases (principal); Z11.59 Encounter for screening for other viral diseases

== ENCOUNTER → 2022-10-03 | Outpatient (CLI) | payer BC ==
[2022-10-03 15:22] LABS: BASO # 0.1 10^3/uL (0.0-0.2); EOS # 0.1 10^3/uL (0.0-0.5); EOS % 2.1 % (0.0-3.0); HEMATOCRIT 42.6 % (36.0-47.0); HEMOGLOBIN 12.8 g/dl (12.0-15.5); LYMPH # 1.7 10^3/uL (1.5-5.0); LYMPH % 27.4 % (24.0-44.0); MEAN CORPUSCULAR HEMOGLOBIN 27.6 pg (27.0-33.0); MONO # 0.5 10^3/uL (0.0-0.8); MONO % 7.6 % (2.0-8.0); NEUTROPHILS # 3.7 10^3/uL (1.5-8.5); NEUTROPHILS % 61.7 % (36.0-66.0); PLATELET COUNT, AUTOMATED 269 10^3/uL (150-450); RED BLOOD COUNT 4.63 10^6/uL (4.00-5.40); WHITE BLOOD COUNT 6.1 10^3/uL (4.0-10.0)
[2022-10-03 16:26] LABS: ALBUMIN 3.7 GM/DL (3.2-5.2); ALT/SGPT 26 U/L (12-78); BILIRUBIN,TOTAL 0.3 MG/DL (0.2-1.0); BLOOD UREA NITROGEN 13 MG/DL (7-18); CALCIUM LEVEL 9.2 MG/DL (8.5-10.1); CARBON DIOXIDE LEVEL 27 MEQ/L (21-32); CHLORIDE LEVEL 108 MEQ/L (98-107); CREATININE FOR GFR 0.55 MG/DL (0.55-1.30); FERRITIN 74 NG/ML (8-252); GLOMERULAR FILTRATION RATE > 60.0 (>51); GLUCOSE, FASTING 120 MG/DL (70-100); MAGNESIUM LEVEL 2.3 MG/DL (1.8-2.4); NT-PRO BNP 17 PG/ML (<125); POTASSIUM SERUM 4.7 MEQ/L (3.5-5.1); SODIUM LEVEL 141 MEQ/L (136-145)
== END ==
LOC: M LAB 14:24
PROVIDERS: ATTEND Family Medicine
DX: I50.32 Chronic diastolic (congestive) heart failure (principal); D50.9 Iron deficiency anemia, unspecified

== ENCOUNTER → 2022-10-03 | Outpatient (CLI) | payer BC | LOC: M LAB 14:21 | PROVIDERS: ATTEND Physician Assistant Medical | DX: D50.9 Iron deficiency anemia, unspecified (principal); T18.9XXA Foreign body of alimentary tract, part unspecified, initial encounter ==

== ENCOUNTER → 2022-10-30 | Outpatient (CLI) | payer BC ==
[~2022-10-30] MED LIST changes: +GLUCAGON INJ 1MG VIAL As Ordered ONE; +ISOVUE-370 76% 100ML VIAL As Ordered ONE; +NEULUMEX 0.1% SUSPENSION 450ML BOTTLE (FORMERLY VOLUMEN) As Ordered ONE
== END ==
LOC: M RAD 12:54
PROVIDERS: ATTEND Physician Assistant Medical
DX: D50.9 Iron deficiency anemia, unspecified (principal)
CPT/HCPCS: 74177; J1610

== ENCOUNTER 2022-12-06 16:38 | Emergency (ER) | payer OTHER, BC ==
[~2022-12-06] VITALS: Ht 154.9 cm; Wt 80.6 kg
[~2022-12-06 16:38] MED LIST changes: -GLUCAGON INJ 1MG VIAL As Ordered ONE; -ISOVUE-370 76% 100ML VIAL As Ordered ONE; -NEULUMEX 0.1% SUSPENSION 450ML BOTTLE (FORMERLY VOLUMEN) As Ordered ONE
[2022-12-06] MEDS ORDERED: ACETAMINOPHEN TAB 650MG DOSE (2X325MG) PO ONE (20:50)
[2022-12-06] MEDS ORDERED: ELIQ5TAB PO (21:30)
[2022-12-06 22:10] VITALS: BP 112/70
== END 2022-12-07 01:31 | disposition home or self-care (01) ==
LOC: M ED 16:38
DX: S80.912A Unspecified superficial injury of left knee, initial encounter (principal); W01.0XXA Fall on same level from slipping, tripping and stumbling without subsequent striking against object, initial encounter; J44.9 Chronic obstructive pulmonary disease, unspecified; E78.5 Hyperlipidemia, unspecified; Z98.84 Bariatric surgery status; Z86.79 Personal history of other diseases of the circulatory system; Y92.9 Unspecified place or not applicable; Y93.9 Activity, unspecified; Y99.0 Civilian activity done for income or pay; Z79.01 Long term (current) use of anticoagulants; Z79.4 Long term (current) use of insulin; Z79.899 Other long term (current) drug therapy

== ENCOUNTER → 2022-12-11 | Outpatient (CLI) | payer OTHER, BC ==
[~2022-12-11] MED LIST changes: +ELIQ5TAB PO
== END ==
LOC: M SOG 07:57
PROVIDERS: ATTEND Orthopaedic Surgery Adult Reconstructive Orthopaedic Surgery
DX: M25.562 Pain in left knee (principal)

== ENCOUNTER → 2023-01-02 | Outpatient (CLI) | payer BC ==
[2023-01-02 12:43] LABS: BASO # 0.1 10^3/uL (0.0-0.2); BASO % 1.3 % (0.0-1.0); EOS # 0.1 10^3/uL (0.0-0.5); EOS % 2.8 % (0.0-3.0); HEMATOCRIT 40.2 % (36.0-47.0); HEMOGLOBIN 12.7 g/dl (12.0-15.5); LYMPH % 42.5 % (24.0-44.0); MEAN CORPUSCULAR HEMOGLOBIN 29.5 pg (27.0-33.0); MEAN CORPUSCULAR HGB CONC 31.6 g/dl (32.0-36.5); MEAN CORPUSCULAR VOLUME 93.3 fl (80.0-96.0); MONO # 0.3 10^3/uL (0.0-0.8); MONO % 6.6 % (2.0-8.0); NEUTROPHILS # 2.2 10^3/uL (1.5-8.5); NEUTROPHILS % 46.4 % (36.0-66.0); PLATELET COUNT, AUTOMATED 250 10^3/uL (150-450); RED BLOOD COUNT 4.31 10^6/uL (4.00-5.40); WHITE BLOOD COUNT 4.7 10^3/uL (4.0-10.0)
[2023-01-02 13:06] LABS: ALBUMIN 3.7 G/DL (3.2-5.2); ALKALINE PHOSPHATASE 80 U/L (46-116); ALT/SGPT 17 U/L (7.0-40); AST/SGOT 15 U/L (<34); BILIRUBIN,TOTAL 0.5 MG/DL (0.3-1.2); BLOOD UREA NITROGEN 12 MG/DL (9-23); CALCIUM LEVEL 9.7 MG/DL (8.5-10.1); CARBON DIOXIDE LEVEL 26 MMOL/L (20-31); CHLORIDE LEVEL 106 MMOL/L (98-107); CHOLESTEROL LEVEL 214 MG/DL (<200); CHOLESTEROL RISK RATIO 2.99 (<5); CREATININE FOR GFR 0.49 MG/DL (0.55-1.30); GLOMERULAR FILTRATION RATE > 60.0 (>51); GLUCOSE, FASTING 139 MG/DL (60-100); HDL CHOLESTEROL 71.4 MG/DL (>40); HEMOGLOBIN A1c 7.1 % (4.0-6.0); NON-HDL-C 143 MG/DL; POTASSIUM SERUM 4.3 MMOL/L (3.5-5.1); SODIUM LEVEL 139 MMOL/L (136-145); TOTAL PROTEIN 6.6 G/DL (5.7-8.2); TRIGLYCERIDES LEVEL 128 MG/DL (<150)
[2023-01-02 13:07] LABS: FERRITIN 52.7 NG/ML (7.3-270.7); VITAMIN B12 LEVEL 729 PG/ML (211-911)
== END ==
LOC: M LAB 11:49
PROVIDERS: ATTEND Family Medicine
DX: E11.8 Type 2 diabetes mellitus with unspecified complications (principal); D50.9 Iron deficiency anemia, unspecified

== ENCOUNTER → 2023-01-24 | Outpatient (CLI) | payer OTHER | LOC: M RAD 07:47 | PROVIDERS: ATTEND Orthopaedic Surgery Adult Reconstructive Orthopaedic Surgery | DX: M23.92 Unspecified internal derangement of left knee (principal); T18.9XXA Foreign body of alimentary tract, part unspecified, initial encounter ==

== ENCOUNTER → 2023-01-31 | Outpatient (REF) | payer BC | LOC: M SFHCPLAZ 13:06 | PROVIDERS: ATTEND Physician Assistant | DX: R50.9 Fever, unspecified (principal) ==

== ENCOUNTER → 2023-03-17 | Outpatient (REF) | payer BC ==
[~2023-03-17] MED LIST changes: +FLUT50SP17 NARES; -FLUTISP NARES
== END ==
LOC: M SFHCPLAZ 17:45
PROVIDERS: ATTEND Family Medicine
DX: E78.2 Mixed hyperlipidemia (principal); E11.8 Type 2 diabetes mellitus with unspecified complications; D50.9 Iron deficiency anemia, unspecified; Z53.9 Procedure and treatment not carried out, unspecified reason

== ENCOUNTER → 2023-04-24 | Outpatient (CLI) | payer BC ==
[2023-04-24 11:40] LABS: BASO # 0.1 10^3/uL (0.0-0.2); BASO % 1.4 % (0.0-1.0); EOS # 0.2 10^3/uL (0.0-0.5); EOS % 3.6 % (0.0-3.0); HEMATOCRIT 37.5 % (36.0-47.0); HEMOGLOBIN 12.1 g/dl (12.0-15.5); LYMPH % 40.6 % (24.0-44.0); MEAN CORPUSCULAR HGB CONC 32.3 g/dl (32.0-36.5); MEAN CORPUSCULAR VOLUME 92.8 fl (80.0-96.0); MONO # 0.4 10^3/uL (0.0-0.8); MONO % 7.6 % (2.0-8.0); NEUTROPHILS # 2.3 10^3/uL (1.5-8.5); NEUTROPHILS % 46.6 % (36.0-66.0); PLATELET COUNT, AUTOMATED 265 10^3/uL (150-450); RED BLOOD COUNT 4.04 10^6/uL (4.00-5.40)
[2023-04-24 11:54] LABS: HEMOGLOBIN A1c 7.3 % (4.0-6.0)
[2023-04-24 12:10] LABS: ALBUMIN 3.6 G/DL (3.2-5.2); ALKALINE PHOSPHATASE 81 U/L (46-116); ALT/SGPT 26 U/L (7.0-40); AST/SGOT 19 U/L (<34); BILIRUBIN,TOTAL 0.6 MG/DL (0.3-1.2); BLOOD UREA NITROGEN 10 MG/DL (9-23); CARBON DIOXIDE LEVEL 25 MMOL/L (20-31); CHLORIDE LEVEL 108 MMOL/L (98-107); CHOLESTEROL LEVEL 129 MG/DL (<200); CREATININE FOR GFR 0.49 MG/DL (0.55-1.30); GLOMERULAR FILTRATION RATE > 60.0 (>51); GLUCOSE, FASTING 94 MG/DL (60-100); HDL CHOLESTEROL 58.4 MG/DL (>40); LDL CHOLESTEROL 52.6 MG/DL (<100); MAGNESIUM LEVEL 2.1 MG/DL (1.8-2.4); NON-HDL-C 70.6 MG/DL; POTASSIUM SERUM 4.3 MMOL/L (3.5-5.1); SODIUM LEVEL 140 MMOL/L (136-145); TOTAL PROTEIN 6.4 G/DL (5.7-8.2); TRIGLYCERIDES LEVEL 90 MG/DL (<150)
[2023-04-24 12:13] LABS: FREE T4 0.91 NG/DL (0.89-1.76)
[2023-04-24 12:14] LABS: FERRITIN 49.6 NG/ML (7.3-270.7); THYROID STIMULATING HORMONE 2.849 uIU/ML (0.55-4.78)
== END ==
LOC: M LAB 11:02
PROVIDERS: ATTEND Family Medicine
DX: E78.2 Mixed hyperlipidemia (principal); E11.9 Type 2 diabetes mellitus without complications; D50.9 Iron deficiency anemia, unspecified

== ENCOUNTER → 2023-04-24 | Outpatient (REF) | LOC: M EMP 08:29 | PROVIDERS: ATTEND Family Medicine | DX: Z11.52 Encounter for screening for COVID-19 (principal) ==

== ENCOUNTER → 2023-04-28 | Outpatient (REF) | LOC: M EMP 10:55 | PROVIDERS: ATTEND Family Medicine | DX: Z11.52 Encounter for screening for COVID-19 (principal) ==

== ENCOUNTER → 2023-04-29 | Outpatient (REF) ==
[2023-04-29 14:50] LABS: RSV AMPLIFICATION NEGATIVE (NEGATIVE)
== END ==
LOC: M EMP 13:26
PROVIDERS: ATTEND Family Medicine
DX: Z20.828 Contact with and (suspected) exposure to other viral communicable diseases (principal)

== ENCOUNTER → 2023-07-31 | Outpatient (REF) | LOC: M EMP 10:57 | PROVIDERS: ATTEND Family Medicine | DX: Z11.52 Encounter for screening for COVID-19 (principal) ==

== ENCOUNTER → 2023-08-01 | Outpatient (CLI) | payer BC ==
[~2023-08-01] MED LIST changes: +MUCI1TAB18 PO
== END ==
LOC: M WHC 19:03
PROVIDERS: ATTEND Family Medicine
DX: Z12.31 Encounter for screening mammogram for malignant neoplasm of breast (principal); Z53.9 Procedure and treatment not carried out, unspecified reason

== ENCOUNTER 2023-08-03 19:21 | Emergency (ER) | payer BC ==
[~2023-08-03] VITALS: Ht 154.9 cm; Wt 81.9 kg
[~2023-08-03 19:21] MED LIST changes: -MUCI1TAB18 PO
[2023-08-03] MEDS ORDERED: MUCI1TAB18 PO (19:45)
[2023-08-03 20:32] LABS: RSV AMPLIFICATION NEGATIVE (NEGATIVE)
[2023-08-03] MEDS ORDERED: ACETAMINOPHEN TAB 650MG DOSE (2X325MG) PO ONE (21:00)
[2023-08-03 22:18] LABS: BASO % 0.9 % (0.0-1.0); EOS % 0.7 % (0.0-3.0); HEMATOCRIT 42.1 % (36.0-47.0); HEMOGLOBIN 13.4 g/dl (12.0-15.5); LYMPH # 0.4 10^3/uL (1.5-5.0); LYMPH % 9.2 % (24.0-44.0); MEAN CORPUSCULAR HEMOGLOBIN 29.5 pg (27.0-33.0); MEAN CORPUSCULAR HGB CONC 31.8 g/dl (32.0-36.5); MEAN CORPUSCULAR VOLUME 92.5 fl (80.0-96.0); MONO # 0.3 10^3/uL (0.0-0.8); NEUTROPHILS # 3.4 10^3/uL (1.5-8.5); NEUTROPHILS % 80.7 % (36.0-66.0); PLATELET COUNT, AUTOMATED 240 10^3/uL (150-450); RED BLOOD COUNT 4.55 10^6/uL (4.00-5.40); WHITE BLOOD COUNT 4.3 10^3/uL (4.0-10.0)
[2023-08-03 22:42] LABS: CK-MB VALUE MASS < 1.0 NG/ML (<3.6); LIPASE 56 U/L (12-53)
[2023-08-03 22:44] LABS: ALBUMIN 4.2 G/DL (3.2-5.2); ALKALINE PHOSPHATASE 114 U/L (46-116); ALT/SGPT 37 U/L (7.0-40); AST/SGOT 26 U/L (<34); BILIRUBIN,DIRECT 0.2 MG/DL (<0.4); BILIRUBIN,TOTAL 0.6 MG/DL (0.3-1.2); BLOOD UREA NITROGEN 7 MG/DL (9-23); CALCIUM LEVEL 9.5 MG/DL (8.5-10.1); CARBON DIOXIDE LEVEL 25 MMOL/L (20-31); CHLORIDE LEVEL 102 MMOL/L (98-107); GLOMERULAR FILTRATION RATE > 60.0 (>51); GLUCOSE, FASTING 117 MG/DL (60-100); POTASSIUM SERUM 4.2 MMOL/L (3.5-5.1); SODIUM LEVEL 136 MMOL/L (136-145); TOTAL PROTEIN 7.5 G/DL (5.7-8.2)
[2023-08-03 22:46] LABS: THYROID STIMULATING HORMONE 2.378 uIU/ML (0.55-4.78)
[2023-08-03 22:50] LABS: CPK CREATINE PHOSPHOKINASE 64 U/L (34-145); MB/CK RELATIVE INDEX 1.56 (< OR =4)
[2023-08-03] MEDS ORDERED: NIRMATRELVIR/RITONAVIR CO-PACK (EMERGENCY USE AUTH) PO SCH (23:30)
[2023-08-04] MEDS ORDERED: ELIQ5TAB PO (00:13)
[2023-08-04 00:34] LABS: CK-MB VALUE MASS < 1.0 NG/ML (<3.6)
[2023-08-04 00:35] LABS: CPK CREATINE PHOSPHOKINASE 50 U/L (34-145)
[2023-08-04 02:21] VITALS: O2SAT 93
[2023-08-04 02:23] VITALS: BP 106/65; TEMP 98
[2023-08-04] MEDS ORDERED: NIRMATRELVIR/RITONAVIR CO-PACK (EMERGENCY USE AUTH) PO SCH (09:00)
== END 2023-08-04 02:30 | disposition home or self-care (01) ==
LOC: M ED 19:21
DX: U07.1 COVID-19 (principal); I48.92 Unspecified atrial flutter; E11.9 Type 2 diabetes mellitus without complications; I11.0 Hypertensive heart disease with heart failure; E78.5 Hyperlipidemia, unspecified; M51.36 Other intervertebral disc degeneration, lumbar region; I45.10 Unspecified right bundle-branch block

== ENCOUNTER 2023-08-08 16:04 | Emergency (ER) | payer BC ==
[~2023-08-08] VITALS: Ht 154.9 cm; Wt 80.5 kg
[~2023-08-08 16:04] MED LIST changes: +MUCI1TAB18 PO
[2023-08-08 18:05] LABS: BASO % 0.6 % (0.0-1.0); EOS # 0.1 10^3/uL (0.0-0.5); EOS % 1.9 % (0.0-3.0); HEMATOCRIT 43.9 % (36.0-47.0); HEMOGLOBIN 13.9 g/dl (12.0-15.5); LYMPH # 1.8 10^3/uL (1.5-5.0); LYMPH % 37.2 % (24.0-44.0); MEAN CORPUSCULAR HEMOGLOBIN 29.5 pg (27.0-33.0); MEAN CORPUSCULAR HGB CONC 31.7 g/dl (32.0-36.5); MEAN CORPUSCULAR VOLUME 93.2 fl (80.0-96.0); MONO # 0.3 10^3/uL (0.0-0.8); MONO % 7.1 % (2.0-8.0); NEUTROPHILS # 2.5 10^3/uL (1.5-8.5); NEUTROPHILS % 52.8 % (36.0-66.0); PLATELET COUNT, AUTOMATED 261 10^3/uL (150-450); RED BLOOD COUNT 4.71 10^6/uL (4.00-5.40); WHITE BLOOD COUNT 4.8 10^3/uL (4.0-10.0)
[2023-08-08 18:22] LABS: INR 0.91; PROTHROMBIN TIME 11.9 SECONDS (12.5-14.5)
[2023-08-08 18:23] LABS: PARTIAL THROMBOPLASTIN TIME 27.4 SECONDS (24.8-34.2)
[2023-08-08 18:27] LABS: ALBUMIN 4.3 G/DL (3.2-5.2); ALKALINE PHOSPHATASE 100 U/L (46-116); ALT/SGPT 45 U/L (7.0-40); AST/SGOT 28 U/L (<34); BILIRUBIN,DIRECT 0.2 MG/DL (<0.4); BILIRUBIN,TOTAL 0.5 MG/DL (0.3-1.2); BLOOD UREA NITROGEN 6 MG/DL (9-23); CALCIUM LEVEL 9.3 MG/DL (8.5-10.1); CARBON DIOXIDE LEVEL 27 MMOL/L (20-31); CHLORIDE LEVEL 103 MMOL/L (98-107); CREATININE FOR GFR 0.56 MG/DL (0.55-1.30); GLOMERULAR FILTRATION RATE > 60.0 (>51); GLUCOSE, FASTING 79 MG/DL (60-100); POTASSIUM SERUM 4.3 MMOL/L (3.5-5.1); SODIUM LEVEL 139 MMOL/L (136-145); THYROXINE (T4) 9.7 UG/DL (4.5-10.9); TOTAL PROTEIN 7.7 G/DL (5.7-8.2)
[2023-08-08 18:50] LABS: CK-MB VALUE MASS < 1.0 NG/ML (<3.6)
[2023-08-08] MEDS ORDERED: ISOVUE-370 76% 100ML VIAL As Ordered ONE (18:52)
[2023-08-08 18:54] LABS: CPK CREATINE PHOSPHOKINASE 48 U/L (34-145); MB/CK RELATIVE INDEX 2.08 (< OR =4)
[2023-08-08] MEDS ORDERED: NS 500 ML IV ONE (18:55)
[2023-08-08 19:30] LABS: LIPASE 61 U/L (12-53)
[2023-08-08 20:22] LABS: CK-MB VALUE MASS < 1.0 NG/ML (<3.6)
[2023-08-08 20:27] LABS: CPK CREATINE PHOSPHOKINASE 43 U/L (34-145); MB/CK RELATIVE INDEX 2.32 (< OR =4)
[2023-08-08 21:23] LABS: CK-MB VALUE MASS < 1.0 NG/ML (<3.6)
[2023-08-08 21:24] LABS: CPK CREATINE PHOSPHOKINASE 35 U/L (34-145); MB/CK RELATIVE INDEX 2.85 (< OR =4)
[2023-08-08 22:02] VITALS: BP 106/70; TEMP 98.4; O2SAT 98
== END 2023-08-08 22:04 | disposition home or self-care (01) ==
LOC: M ED 16:04
DX: I95.1 Orthostatic hypotension (principal); U07.1 COVID-19; E11.9 Type 2 diabetes mellitus without complications; I10 Essential (primary) hypertension; E78.5 Hyperlipidemia, unspecified; G47.33 Obstructive sleep apnea (adult) (pediatric); Z87.442 Personal history of urinary calculi; Z86.73 Personal history of transient ischemic attack (TIA), and cerebral infarction without residual deficits; Z79.01 Long term (current) use of anticoagulants; Z79.811 Long term (current) use of aromatase inhibitors; Z79.810 Long term (current) use of selective estrogen receptor modulators (SERMs); Z79.899 Other long term (current) drug therapy
CPT/HCPCS: 70450; 71045; 74177; 80053; 82248; 82550; 82553; 83605; 83690; 84436; 84443; 84484; 85025; 85610; 85730; 93005; 93041; 94760; 96360; 96361; 99285; Q9967

== ENCOUNTER → 2023-08-27 | Outpatient (CLI) | payer BC ==
[~2023-08-27] MED LIST changes: +ALBU8.5H INH; +ATOR40TA75 PO; +B-12100021 PO; +DICL100G10 TOP; +DICL1PAT6 TOP; +FURO20TA2 PO; +GABA-284 PO; +LEVO50TA5 PO; +LIDO5TD TD; +OXYC-517 PO; +SEMA1PEN2 SC
== END ==
LOC: M WHC 09:37
PROVIDERS: ATTEND Nurse Practitioner Adult Health
DX: M79.604 Pain in right leg (principal)

== ENCOUNTER → 2023-11-12 | Outpatient (CLI) | payer BC ==
[~2023-11-12] MED LIST changes: -BIOT50004 PO; +BIOT5CAP8 PO; -FLUT50SP17 NARES; +FLUTISP NARES
[2023-11-12 16:04] LABS: BASO # 0.1 10^3/uL (0.0-0.2); BASO % 1.6 % (0.0-1.0); EOS # 0.2 10^3/uL (0.0-0.5); EOS % 3.1 % (0.0-3.0); HEMATOCRIT 39.6 % (36.0-47.0); HEMOGLOBIN 12.7 g/dl (12.0-15.5); LYMPH # 2.6 10^3/uL (1.5-5.0); LYMPH % 41.4 % (24.0-44.0); MEAN CORPUSCULAR HEMOGLOBIN 30.5 pg (27.0-33.0); MEAN CORPUSCULAR HGB CONC 32.1 g/dl (32.0-36.5); MONO # 0.5 10^3/uL (0.0-0.8); MONO % 7.3 % (2.0-8.0); NEUTROPHILS # 2.9 10^3/uL (1.5-8.5); NEUTROPHILS % 46.4 % (36.0-66.0); PLATELET COUNT, AUTOMATED 293 10^3/uL (150-450); RED BLOOD COUNT 4.17 10^6/uL (4.00-5.40); WHITE BLOOD COUNT 6.2 10^3/uL (4.0-10.0)
[2023-11-12 16:21] LABS: HEMOGLOBIN A1c 8.3 % (4.0-6.0)
[2023-11-12 16:30] LABS: ALBUMIN 3.8 G/DL (3.2-5.2); ALKALINE PHOSPHATASE 100 U/L (46-116); ALT/SGPT 40 U/L (7.0-40); AST/SGOT 19 U/L (<34); BILIRUBIN,TOTAL 0.5 MG/DL (0.3-1.2); BLOOD UREA NITROGEN 11 MG/DL (9-23); CALCIUM LEVEL 9.4 MG/DL (8.5-10.1); CARBON DIOXIDE LEVEL 29 MMOL/L (20-31); CHLORIDE LEVEL 103 MMOL/L (98-107); CREATININE FOR GFR 0.49 MG/DL (0.55-1.30); GLOMERULAR FILTRATION RATE > 60.0 (>51); GLUCOSE, FASTING 170 MG/DL (60-100); POTASSIUM SERUM 4.2 MMOL/L (3.5-5.1); SODIUM LEVEL 136 MMOL/L (136-145); TOTAL PROTEIN 6.7 G/DL (5.7-8.2)
[2023-11-12 16:31] LABS: FERRITIN 35.5 NG/ML (7.3-270.7)
[2023-11-12 16:35] LABS: VITAMIN B12 LEVEL 1930 PG/ML (211-911)
== END ==
LOC: M PLALAB 13:04
PROVIDERS: ATTEND Family Medicine
DX: Z98.84 Bariatric surgery status (principal)

== ENCOUNTER → 2023-11-13 | Outpatient (CLI) | payer BC | LOC: M WHC 11:04 | PROVIDERS: ATTEND Family Medicine | DX: Z12.31 Encounter for screening mammogram for malignant neoplasm of breast (principal) ==

== ENCOUNTER → 2023-12-04 | Outpatient (REF) | payer BC | LOC: M SFHCPLAZ 14:13 | PROVIDERS: ATTEND Family Medicine | DX: E78.2 Mixed hyperlipidemia (principal); D50.9 Iron deficiency anemia, unspecified; E11.8 Type 2 diabetes mellitus with unspecified complications ==

== ENCOUNTER → 2023-12-04 | Outpatient (CLI) | payer BC ==
[2023-12-04 19:06] LABS: FREE T4 1.11 NG/DL (0.89-1.76)
[2023-12-04 19:07] LABS: THYROID STIMULATING HORMONE 1.931 uIU/ML (0.55-4.78)
[2023-12-04 19:09] LABS: THYROID PEROXIDASE ANTIBODY < 28.0 U/ML (<60.0)
== END ==
LOC: M PLALAB 14:54
PROVIDERS: ATTEND Family Medicine
DX: E78.2 Mixed hyperlipidemia (principal)

== ENCOUNTER 2023-12-14 12:17 | Emergency (ER) | payer BC ==
[~2023-12-14] VITALS: Ht 154.9 cm; Wt 88.7 kg
[2023-12-14 13:17] LABS: RSV AMPLIFICATION NEGATIVE (NEGATIVE)
[2023-12-14 14:09] LABS: HEMATOCRIT 36.4 % (36.0-47.0); HEMOGLOBIN 11.7 g/dl (12.0-15.5); MEAN CORPUSCULAR HEMOGLOBIN 29.8 pg (27.0-33.0); MEAN CORPUSCULAR HGB CONC 32.1 g/dl (32.0-36.5); MEAN CORPUSCULAR VOLUME 92.9 fl (80.0-96.0); PLATELET COUNT, AUTOMATED 253 10^3/uL (150-450); RED BLOOD COUNT 3.92 10^6/uL (4.00-5.40); WHITE BLOOD COUNT 5.4 10^3/uL (4.0-10.0)
[2023-12-14] MEDS ORDERED: ACET325C5 PO (16:19)
[2023-12-14] MEDS ORDERED: MUCI120T PO (16:19)
[2023-12-14] MEDS ORDERED: BENZ200C70 PO (16:21)
[2023-12-14 16:26] VITALS: BP 109/65; TEMP 98.4; O2SAT 91
== END 2023-12-14 16:29 | disposition home or self-care (01) ==
LOC: M ED 12:17
DX: J06.9 Acute upper respiratory infection, unspecified (principal); I45.10 Unspecified right bundle-branch block; E11.9 Type 2 diabetes mellitus without complications; J44.9 Chronic obstructive pulmonary disease, unspecified; I50.22 Chronic systolic (congestive) heart failure; Z86.79 Personal history of other diseases of the circulatory system; Z79.84 Long term (current) use of oral hypoglycemic drugs; Z79.4 Long term (current) use of insulin; Z79.899 Other long term (current) drug therapy

== ENCOUNTER → 2023-12-24 | Outpatient (REF) ==
[~2023-12-24] MED LIST changes: +ACET325C5 PO; +BENZ200C70 PO; +MUCI120T PO
== END ==
LOC: M PLAIMG 14:31
PROVIDERS: ATTEND Internal Medicine
DX: R52 Pain, unspecified (principal); M51.36 Other intervertebral disc degeneration, lumbar region

== ENCOUNTER → 2024-01-01 | Outpatient (CLI) | payer BC | LOC: M PLARAD 08:17 | PROVIDERS: ATTEND Family Medicine | DX: M47.816 Spondylosis without myelopathy or radiculopathy, lumbar region (principal); M46.96 Unspecified inflammatory spondylopathy, lumbar region; M51.26 Other intervertebral disc displacement, lumbar region ==

== ENCOUNTER → 2024-01-19 | Outpatient (REF) | payer BC ==
[2024-01-19 18:21] LABS: RSV AMPLIFICATION NEGATIVE (NEGATIVE)
== END ==
LOC: M SFHCPLAZ 17:09
PROVIDERS: ATTEND Nurse Practitioner Family
DX: R09.81 Nasal congestion (principal)

== ENCOUNTER → 2024-01-22 | Outpatient (CLI) | payer BC ==
[2024-01-22 17:52] LABS: BASO # 0.1 10^3/uL (0.0-0.2); BASO % 1.1 % (0.0-1.0); EOS # 0.2 10^3/uL (0.0-0.5); HEMOGLOBIN 12.7 g/dl (12.0-15.5); LYMPH # 2.2 10^3/uL (1.5-5.0); LYMPH % 39.4 % (24.0-44.0); MEAN CORPUSCULAR HEMOGLOBIN 29.5 pg (27.0-33.0); MEAN CORPUSCULAR HGB CONC 31.8 g/dl (32.0-36.5); MEAN CORPUSCULAR VOLUME 92.8 fl (80.0-96.0); MONO # 0.4 10^3/uL (0.0-0.8); MONO % 6.9 % (2.0-8.0); NEUTROPHILS # 2.8 10^3/uL (1.5-8.5); NEUTROPHILS % 48.2 % (36.0-66.0); PLATELET COUNT, AUTOMATED 342 10^3/uL (150-450); RED BLOOD COUNT 4.31 10^6/uL (4.00-5.40); WHITE BLOOD COUNT 5.7 10^3/uL (4.0-10.0)
[2024-01-22 18:05] LABS: HEMOGLOBIN A1c 9.8 % (4.0-6.0)
[2024-01-22 18:16] LABS: ALBUMIN 3.4 G/DL (3.2-5.2); ALKALINE PHOSPHATASE 129 U/L (46-116); ALT/SGPT 32 U/L (7.0-40); AST/SGOT 20 U/L (<34); BILIRUBIN,TOTAL 0.3 MG/DL (0.3-1.2); BLOOD UREA NITROGEN 6 MG/DL (9-23); CALCIUM LEVEL 9.5 MG/DL (8.5-10.1); CARBON DIOXIDE LEVEL 29 MMOL/L (20-31); CHLORIDE LEVEL 106 MMOL/L (98-107); CHOLESTEROL LEVEL 109 MG/DL (<200); CHOLESTEROL RISK RATIO 2.24 (<5); CREATININE FOR GFR 0.48 MG/DL (0.55-1.30); GLOMERULAR FILTRATION RATE > 60.0 (>51); GLUCOSE, FASTING 137 MG/DL (60-100); HDL CHOLESTEROL 48.5 MG/DL (>40); LDL CHOLESTEROL 45.9 MG/DL (<100); NON-HDL-C 60.5 MG/DL; POTASSIUM SERUM 4.1 MMOL/L (3.5-5.1); SODIUM LEVEL 141 MMOL/L (136-145); TOTAL PROTEIN 6.7 G/DL (5.7-8.2); TRIGLYCERIDES LEVEL 73 MG/DL (<150)
[2024-01-22 18:19] LABS: FERRITIN 70.6 NG/ML (7.3-270.7)
[2024-01-22 19:09] LABS: CREATININE, URINE 31.7 MG/DL; MALB URINE SIEMENS < 3.0 MG/L; MAU/CREAT RATIO 9.4 MCG/MG (0.0-30.0)
== END ==
LOC: M PLALAB 15:55
PROVIDERS: ATTEND Family Medicine
DX: E11.8 Type 2 diabetes mellitus with unspecified complications (principal); D50.9 Iron deficiency anemia, unspecified; E78.2 Mixed hyperlipidemia

== ENCOUNTER → 2024-03-09 | Outpatient (REF) | payer OTHER | LOC: M SFHCPLAZ 10:55 | PROVIDERS: ATTEND Family Medicine | DX: I50.32 Chronic diastolic (congestive) heart failure (principal); D50.9 Iron deficiency anemia, unspecified ==

== ENCOUNTER 2024-04-29 23:43 | Emergency (ER) | payer OTHER ==
[~2024-04-29] VITALS: Ht 154.9 cm; Wt 89.5 kg
[2024-04-29 23:43] VITALS: BP 147/78; TEMP 97.9; O2SAT 96
[~2024-04-29 23:43] MED LIST changes: -E-Z-GAS II EFFERVESCENT PACKET (SODIUM BICARB./CITRIC ACID/SIMETHICONE) As Ordered ONE; -E-Z-HD 98% w/w 340GM SUSP BTL As Ordered ONE; -E-Z-PAQUE 96% w/w SUSP 176GM BTL As Ordered ONE
== END 2024-04-30 00:05 | disposition left against medical advice (07) ==
LOC: M ED 23:43
DX: Z53.21 Procedure and treatment not carried out due to patient leaving prior to being seen by health care provider (principal)

== ENCOUNTER → 2024-04-29 | Outpatient (CLI) | payer OTHER ==
[~2024-04-29] MED LIST changes: +E-Z-GAS II EFFERVESCENT PACKET (SODIUM BICARB./CITRIC ACID/SIMETHICONE) As Ordered ONE; +E-Z-HD 98% w/w 340GM SUSP BTL As Ordered ONE; +E-Z-PAQUE 96% w/w SUSP 176GM BTL As Ordered ONE; +ONDA-282 PO; -ONDA4TAB6 PO
== END ==
LOC: M RAD 07:32
PROVIDERS: ATTEND Family Medicine
DX: Z98.84 Bariatric surgery status (principal)

== ENCOUNTER → 2024-06-04 | Outpatient (CLI) | payer OTHER | LOC: M SOG 07:55 | PROVIDERS: ATTEND Orthopaedic Surgery | DX: Z53.9 Procedure and treatment not carried out, unspecified reason (principal) ==

== ENCOUNTER → 2024-06-09 | Outpatient (CLI) | payer OTHER | LOC: M SOG 08:00 | PROVIDERS: ATTEND Orthopaedic Surgery | DX: M25.562 Pain in left knee (principal); Z53.9 Procedure and treatment not carried out, unspecified reason ==

== ENCOUNTER → 2024-06-14 | Outpatient (CLI) | payer OTHER | LOC: M SOG 07:55 | PROVIDERS: ATTEND Orthopaedic Surgery | DX: M25.562 Pain in left knee (principal) ==

== ENCOUNTER → 2024-07-09 | Outpatient (CLI) | payer OTHER ==
[~2024-07-09] MED LIST changes: +BASA100I SC
[2024-07-09 10:13] LABS: BASO # 0.1 10^3/uL (0.0-0.2); BASO % 1.1 % (0.0-1.0); EOS # 0.2 10^3/uL (0.0-0.5); EOS % 3.8 % (0.0-3.0); HEMATOCRIT 37.5 % (36.0-47.0); HEMOGLOBIN 12.1 g/dl (12.0-15.5); LYMPH % 37.7 % (24.0-44.0); MEAN CORPUSCULAR HEMOGLOBIN 29.8 pg (27.0-33.0); MEAN CORPUSCULAR HGB CONC 32.3 g/dl (32.0-36.5); MEAN CORPUSCULAR VOLUME 92.4 fl (80.0-96.0); MONO # 0.4 10^3/uL (0.0-0.8); NEUTROPHILS # 2.6 10^3/uL (1.5-8.5); NEUTROPHILS % 50.2 % (36.0-66.0); PLATELET COUNT, AUTOMATED 294 10^3/uL (150-450); RED BLOOD COUNT 4.06 10^6/uL (4.00-5.40); WHITE BLOOD COUNT 5.3 10^3/uL (4.0-10.0)
[2024-07-09 10:37] LABS: ALBUMIN 3.3 G/DL (3.2-5.2); ALKALINE PHOSPHATASE 99 U/L (46-116); ALT/SGPT 27 U/L (7.0-40); AST/SGOT 12 U/L (<34); BILIRUBIN,TOTAL 0.5 MG/DL (0.3-1.2); BLOOD UREA NITROGEN 10 MG/DL (9-23); CALCIUM LEVEL 8.9 MG/DL (8.5-10.1); CARBON DIOXIDE LEVEL 29 MMOL/L (20-31); CHLORIDE LEVEL 108 MMOL/L (98-107); CREATININE FOR GFR 0.56 MG/DL (0.55-1.30); GLOMERULAR FILTRATION RATE > 60.0 (>51); GLUCOSE, FASTING 132 MG/DL (60-100); MAGNESIUM LEVEL 1.9 MG/DL (1.8-2.4); POTASSIUM SERUM 3.7 MMOL/L (3.5-5.1); SODIUM LEVEL 143 MMOL/L (136-145); TOTAL PROTEIN 6.3 G/DL (5.7-8.2)
[2024-07-09 10:38] LABS: FREE T4 0.97 NG/DL (0.89-1.76)
[2024-07-09 10:39] LABS: FERRITIN 38.3 NG/ML (7.3-270.7); THYROID STIMULATING HORMONE 4.172 uIU/ML (0.55-4.78)
== END ==
LOC: M LAB 09:27
PROVIDERS: ATTEND Family Medicine
DX: I50.32 Chronic diastolic (congestive) heart failure (principal); D50.9 Iron deficiency anemia, unspecified; E03.9 Hypothyroidism, unspecified; Z79.01 Long term (current) use of anticoagulants

== ENCOUNTER → 2024-07-13 | Outpatient (REF) | payer OTHER | LOC: M SFHCPLAZ 11:20 | PROVIDERS: ATTEND Family Medicine | DX: I50.32 Chronic diastolic (congestive) heart failure (principal); D50.9 Iron deficiency anemia, unspecified; E03.9 Hypothyroidism, unspecified ==

== ENCOUNTER 2024-07-23 06:55 | Day surgery (SDC) | payer OTHER ==
[~2024-07-23] VITALS: Ht 154.9 cm; Wt 90.7 kg
[2024-07-23] MEDS: NS 1,000 ML IV ONE (07:30)
[2024-07-23 09:28] VITALS: BP 135/78; TEMP 96.2; O2SAT 95
== END 2024-07-23 09:41 | disposition home or self-care (01) ==
LOC: M OPP 06:55
PROVIDERS: ATTEND Internal Medicine Gastroenterology
DX: Z12.11 Encounter for screening for malignant neoplasm of colon (principal); Z86.010 Personal history of colon polyps; K63.5 Polyp of colon; Q43.8 Other specified congenital malformations of intestine; K64.8 Other hemorrhoids; I48.91 Unspecified atrial fibrillation; E11.9 Type 2 diabetes mellitus without complications; G47.30 Sleep apnea, unspecified; Z98.84 Bariatric surgery status

== ENCOUNTER 2024-09-06 12:56 | Emergency (ER) | payer OTHER ==
[~2024-09-06] VITALS: Ht 154.9 cm; Wt 91.2 kg
[2024-09-06 13:02] VITALS: BP 126/63; TEMP 97.9; O2SAT 94
[2024-09-06 16:34] LABS: BASO # 0.1 10^3/uL (0.0-0.2); EOS # 0.3 10^3/uL (0.0-0.5); EOS % 4.4 % (0.0-3.0); HEMATOCRIT 40.9 % (36.0-47.0); LYMPH # 2.4 10^3/uL (1.5-5.0); LYMPH % 40.1 % (24.0-44.0); MEAN CORPUSCULAR HEMOGLOBIN 30.1 pg (27.0-33.0); MEAN CORPUSCULAR HGB CONC 31.8 g/dl (32.0-36.5); MEAN CORPUSCULAR VOLUME 94.7 fl (80.0-96.0); MONO # 0.5 10^3/uL (0.0-0.8); MONO % 7.6 % (2.0-8.0); NEUTROPHILS # 2.7 10^3/uL (1.5-8.5); NEUTROPHILS % 46.6 % (36.0-66.0); PLATELET COUNT, AUTOMATED 295 10^3/uL (150-450); RED BLOOD COUNT 4.32 10^6/uL (4.00-5.40); WHITE BLOOD COUNT 5.9 10^3/uL (4.0-10.0)
[2024-09-06 17:04] LABS: CK-MB VALUE MASS < 1.0 NG/ML (<3.6)
[2024-09-06 17:05] LABS: ETHYL ALCOHOL (ETHANOL) < 0.003 % (0.000-0.010)
[2024-09-06 17:06] LABS: CPK CREATINE PHOSPHOKINASE 51 U/L (34-145); MB/CK RELATIVE INDEX 1.96 (< OR =4)
[2024-09-06 17:07] LABS: ALBUMIN 3.7 G/DL (3.2-5.2); ALKALINE PHOSPHATASE 106 U/L (46-116); ALT/SGPT 36 U/L (7.0-40); AST/SGOT 16 U/L (<34); BILIRUBIN,DIRECT 0.2 MG/DL (<0.4); BILIRUBIN,TOTAL 0.4 MG/DL (0.3-1.2); BLOOD UREA NITROGEN 7 MG/DL (9-23); CALCIUM LEVEL 9.9 MG/DL (8.3-10.6); CARBON DIOXIDE LEVEL 32 MMOL/L (20-31); CHLORIDE LEVEL 107 MMOL/L (98-107); CREATININE FOR GFR 0.53 MG/DL (0.55-1.30); GLOMERULAR FILTRATION RATE > 60.0 (>45); GLUCOSE, FASTING 78 MG/DL (74-106); POTASSIUM SERUM 4.3 MMOL/L (3.5-5.1); SALICYLATE LEVEL < 3.0 MG/DL (<30); SODIUM LEVEL 142 MMOL/L (136-145); TOTAL PROTEIN 7.1 G/DL (5.7-8.2)
[2024-09-06 17:08] LABS: THYROID STIMULATING HORMONE 3.702 uIU/ML (0.55-4.78)
== END 2024-09-06 17:36 | disposition home or self-care (01) ==
LOC: M ED 12:56
DX: R53.81 Other malaise (principal); S70.02XA Contusion of left hip, initial encounter; W19.XXXA Unspecified fall, initial encounter; I45.10 Unspecified right bundle-branch block; E78.5 Hyperlipidemia, unspecified; J45.909 Unspecified asthma, uncomplicated; J44.9 Chronic obstructive pulmonary disease, unspecified; Z98.84 Bariatric surgery status; Z79.52 Long term (current) use of systemic steroids; Z79.01 Long term (current) use of anticoagulants; Z79.02 Long term (current) use of antithrombotics/antiplatelets; Z79.899 Other long term (current) drug therapy; Z86.79 Personal history of other diseases of the circulatory system; Z87.442 Personal history of urinary calculi; Y92.89 Other specified places as the place of occurrence of the external cause; Y93.89 Activity, other specified; Y99.9 Unspecified external cause status

== ENCOUNTER → 2024-10-26 | Outpatient (CLI) | payer OTHER ==
[~2024-10-26] MED LIST changes: -CYCL5TAB PO; +CYCL5TAB4 PO; -POTA10808 PO; +POTA10809 PO
[2024-10-26 10:08] LABS: BASO # 0.1 10^3/uL (0.0-0.2); EOS # 0.2 10^3/uL (0.0-0.5); EOS % 2.7 % (0.0-3.0); HEMATOCRIT 41.3 % (36.0-47.0); HEMOGLOBIN 13.1 g/dl (12.0-15.5); LYMPH # 1.9 10^3/uL (1.5-5.0); LYMPH % 25.3 % (24.0-44.0); MEAN CORPUSCULAR HEMOGLOBIN 29.9 pg (27.0-33.0); MEAN CORPUSCULAR HGB CONC 31.7 g/dl (32.0-36.5); MEAN CORPUSCULAR VOLUME 94.3 fl (80.0-96.0); MONO # 0.5 10^3/uL (0.0-0.8); MONO % 6.2 % (2.0-8.0); NEUTROPHILS # 4.7 10^3/uL (1.5-8.5); NEUTROPHILS % 64.5 % (36.0-66.0); PLATELET COUNT, AUTOMATED 321 10^3/uL (150-450); RED BLOOD COUNT 4.38 10^6/uL (4.00-5.40); WHITE BLOOD COUNT 7.3 10^3/uL (4.0-10.0)
[2024-10-26 10:47] LABS: ALBUMIN 3.4 G/DL (3.2-5.2); ALKALINE PHOSPHATASE 105 U/L (35-104); ALT/SGPT 29 U/L (7.0-40); AST/SGOT 15 U/L (<34); BILIRUBIN,TOTAL 0.6 MG/DL (0.3-1.2); BLOOD UREA NITROGEN 9 MG/DL (9-23); CALCIUM LEVEL 9.8 MG/DL (8.3-10.6); CARBON DIOXIDE LEVEL 32 MMOL/L (20-31); CHLORIDE LEVEL 105 MMOL/L (98-107); CREATININE FOR GFR 0.65 MG/DL (0.55-1.30); GLOMERULAR FILTRATION RATE > 60.0 (>45); GLUCOSE, FASTING 128 MG/DL (74-106); MAGNESIUM LEVEL 2.1 MG/DL (1.8-2.4); POTASSIUM SERUM 4.1 MMOL/L (3.5-5.1); SODIUM LEVEL 141 MMOL/L (136-145); TOTAL PROTEIN 6.8 G/DL (5.7-8.2)
[2024-10-26 10:51] LABS: FERRITIN 30.9 NG/ML (7.3-270.7); FREE T4 0.93 NG/DL (0.89-1.76); THYROID STIMULATING HORMONE 5.042 uIU/ML (0.55-4.78)
== END ==
LOC: M LAB 09:23
PROVIDERS: ATTEND Family Medicine
DX: D50.9 Iron deficiency anemia, unspecified (principal); E03.9 Hypothyroidism, unspecified; I50.32 Chronic diastolic (congestive) heart failure

== ENCOUNTER 2024-11-16 00:57 | Inpatient (IN) | payer OTHER ==
[~2024-11-16] VITALS: Ht 154.9 cm; Wt 87.7 kg
[2024-11-16 01:37] LABS: VENOUS BASE EXCESS -3.5 (-2.0-2.0); VENOUS HCO3 22.7 MMOL/L (23.0-27.0); VENOUS O2 SATURATION 83.6 % (60.0-80.0); VENOUS PARTIAL PRESSURE CO2 46.1 mmHg (38.0-50.0); VENOUS PARTIAL PRESSURE O2 53.2 mmHg (30.0-50.0); VENOUS PH 7.311 UNITS (7.330-7.430); VENOUS STANDARD HCO3 21.3 MMOL/L; VENOUS TOTAL CO2 24.2 MMOL/L (24.0-28.0)
[2024-11-16] MEDS ORDERED: FLUID PLACE HOLDER IV ONE (01:45)
[2024-11-16] MEDS ORDERED: VANCOMYCIN HCL IV ONE (01:45)
[2024-11-16 01:47] LABS: HEMATOCRIT 32.6 % (36.0-47.0); HEMOGLOBIN 10.4 g/dl (12.0-15.5); MEAN CORPUSCULAR HEMOGLOBIN 29.7 pg (27.0-33.0); MEAN CORPUSCULAR HGB CONC 31.9 g/dl (32.0-36.5); MEAN CORPUSCULAR VOLUME 93.1 fl (80.0-96.0); PLATELET COUNT, AUTOMATED 205 10^3/uL (150-450); WHITE BLOOD COUNT 2.7 10^3/uL (4.0-10.0)
[2024-11-16 01:48] LABS: INR 1.25; PARTIAL THROMBOPLASTIN TIME 46.7 SECONDS (24.8-34.2); PROTHROMBIN TIME 15.9 SECONDS (12.5-14.5)
[2024-11-16] MEDS: NS (Normal Saline) 0.9% 1,000 ML IV ONE ×3 (01:49→05:54)
[2024-11-16] MEDS: PIPERACILLIN/TAZOBACTAM SOD 3.375 GM in DEXTROSE 5% (D5W) ADV/MINI-BAG 50 ML IV ONE (01:49)
[2024-11-16 02:26] LABS: AMYLASE 60 U/L (30-118); C REACTIVE PROTEIN QUANTITATIV 7.02 MG/DL (<1.0); CPK CREATINE PHOSPHOKINASE 252 U/L (34-145)
[2024-11-16] MEDS ORDERED: ISOVUE-370 76% 100ML VIAL As Ordered ONE (02:39)
[2024-11-16 02:48] LABS: ATYPICAL LYMPH 2 % (0-5); BASOPHILS 1 % (0-1); LYMPHOCYTES 22 % (16-44); MONOCYTES 3 % (0-5); NEUTROPHILS 72 % (28-66)
[2024-11-16 02:51] LABS: HYPOCHROMASIA 1+
[2024-11-16 03:06] LABS: PLATELET ESTIMATE NORMAL (NORMAL)
[2024-11-16 03:08] LABS: ALBUMIN 2.7 G/DL (3.2-5.2); ALKALINE PHOSPHATASE 92 U/L (35-104); ALT/SGPT 416 U/L (7.0-40); AST/SGOT 536 U/L (<34); BILIRUBIN,DIRECT 0.1 MG/DL (<0.4); BILIRUBIN,TOTAL 0.2 MG/DL (0.3-1.2); BLOOD UREA NITROGEN 13 MG/DL (9-23); CARBON DIOXIDE LEVEL 26 MMOL/L (20-31); CHLORIDE LEVEL 106 MMOL/L (98-107); CK-MB VALUE MASS < 1.0 NG/ML (<3.6); CREATININE FOR GFR 0.77 MG/DL (0.55-1.30); GLOMERULAR FILTRATION RATE > 60.0 (>45); GLUCOSE, FASTING 225 MG/DL (74-106); MB/CK RELATIVE INDEX 0.39 (< OR =4); POTASSIUM SERUM 3.8 MMOL/L (3.5-5.1); SODIUM LEVEL 139 MMOL/L (136-145); TOTAL PROTEIN 5.6 G/DL (5.7-8.2)
[2024-11-16 03:13] LABS: CALCIUM LEVEL 8.1 MG/DL (8.3-10.6)
[2024-11-16 03:36] LABS: APPEARANCE, URINE CLEAR (CLEAR); BACTERIA, URINE AUTO NEGATIVE (NEGATIVE); BILIRUBIN, URINE AUTO NEGATIVE (NEGATIVE); BLOOD, URINE BLOOD NEGATIVE (NEGATIVE); COLOR, URINE YELLOW (YELLOW); GLUCOSE, URINE (UA) AUTO 1+ mg/dL (NEGATIVE); KETONE, URINE AUTO NEGATIVE (NEGATIVE); LEUKOCYTE ESTERASE, URINE AUTO NEGATIVE (NEGATIVE); NITRITE, URINE AUTO NEGATIVE (NEGATIVE); PROTEIN, URINE AUTO NEGATIVE (NEGATIVE); RBC, URINE AUTO 0 /HPF (0-3); SPECIFIC GRAVITY URINE AUTO 1.019 (1.002-1.035); SQUAMOUS EPITHELIAL CELL UR AU 0 /HPF (0-6); UROBILINOGEN, URINE AUTO 0.2 mg/dL (0.0-2.0); WBC, URINE AUTO 0 /HPF (0-3)
[2024-11-16 03:56] LABS: CK-MB VALUE MASS < 1.0 NG/ML (<3.6)
[2024-11-16 03:57] LABS: CPK CREATINE PHOSPHOKINASE 235 U/L (34-145); MB/CK RELATIVE INDEX 0.42 (< OR =4)
[2024-11-16] MEDS: VANCOMYCIN 1,000 MG/200 ML IV BAG *LOAD IV SCH (03:57)
[2024-11-16] MEDS: IPRATROPIUM 0.5MG/ALBUTEROL 2.5MG INH SOL UD 3ML (DUONEB) NEB ONE (06:35)
[2024-11-16 06:43] LABS: LIPASE 69 U/L (12-53)
[2024-11-16 07:06] LABS: HEPATITIS B SURFACE ANTIGEN NEGATIVE (NEGATIVE)
[2024-11-16 07:26] LABS: HEPATITIS C VIRUS ABY INDEX < 0.02 INDEX (<0.8)
[2024-11-16 07:27] LABS: HEPATITIS B CORE ANTIBODY IGM NEGATIVE (NEGATIVE)
[2024-11-16] MEDS ORDERED: ACET-910 PO (07:44)
[2024-11-16] MEDS ORDERED: CYCL5TAB4 PO (07:48)
[2024-11-16] MEDS ORDERED: DICL100G10 TOP (07:57)
[2024-11-16] MEDS: IPRATROPIUM 0.5MG/ALBUTEROL 2.5MG INH SOL UD 3ML (DUONEB) NEB SCH (08:00)
[2024-11-16] MEDS ORDERED: GABA-284 PO (08:00)
[2024-11-16] MEDS ORDERED: LORA-622 PO (08:02)
[2024-11-16] MEDS ORDERED: MECL-86 PO (08:03)
[2024-11-16] MEDS ORDERED: THERTAB52 PO (08:06)
[2024-11-16] MEDS ORDERED: SEMA2PEN SC (08:09)
[2024-11-16] MEDS ORDERED: LEVO25TA5 PO (08:10)
[2024-11-16] MEDS ORDERED: GLIM1TAB84 PO (08:12)
[2024-11-16] MEDS ORDERED: METO1TAB87 PO (08:12)
[2024-11-16] MEDS ORDERED: HOME MED LIST COMPLETE! XX SCH (08:15)
[2024-11-16 08:27] LABS: ALBUMIN 2.5 G/DL (3.2-5.2); ALKALINE PHOSPHATASE 82 U/L (35-104); ALT/SGPT 416 U/L (7.0-40); AST/SGOT 489 U/L (<34); BILIRUBIN,DIRECT < 0.1 MG/DL (<0.4); BILIRUBIN,TOTAL 0.2 MG/DL (0.3-1.2); TOTAL PROTEIN 4.8 G/DL (5.7-8.2)
[2024-11-16] MEDS: ACETAMINOPHEN 325 MG TAB PO ONE (08:46)
[2024-11-16] MEDS ORDERED: DEXTROSE 50% 50ML SYRINGE IV PRN (10:10)
[2024-11-16] MEDS ORDERED: GLUCOSE 4 GM CHEW PO PRN (10:10)
[2024-11-16] MEDS ORDERED: MECLIZINE 25 MG TABLET PO PRN (10:10)
[2024-11-16] MEDS ORDERED: GLUCAGON INJ 1MG VIAL SC PRN (10:10)
[2024-11-16] MEDS: OSELTAMIVIR PHOSPHATE 75 MG CAP (TAMIFLU) PO SCH (10:55)
[2024-11-16] MEDS: methylPREDNISolone 40MG 1ML VIAL IV SCH (10:55)
[2024-11-16] MEDS: LORATADINE 10 MG TAB PO SCH (10:55)
[2024-11-16] MEDS: APIXABAN 5 MG TAB (ELIQUIS) PO SCH (10:55)
[2024-11-16] MEDS: LEVOTHYROXINE 25MCG TABLET (0.025MG) PO SCH (10:56)
[2024-11-16] MEDS: INSULIN LISPRO (NovoLOG) PER UNIT SC SCH ×2 (12:05→21:00)
[2024-11-16] MEDS: ACETYLCYSTEINE IV ONE ×2 (12:19→18:11)
[2024-11-16] MEDS: D5W IV ONE ×2 (12:19→18:11)
[2024-11-16] MEDS: ACETYLCYSTEINE 4,600 MG in D5W 500 ML IV ONE (13:00)
[2024-11-16 15:00] VITALS: BP 146/65; O2SAT 95
[2024-11-16 15:29] VITALS: BP 140/60; TEMP 98; O2SAT 95
[2024-11-16] MEDS ORDERED: ONDANSETRON 4MG 2ML VIAL IV PRN (18:20)
[2024-11-16] MEDS: KETOROLAC 30 MG/ML 1ML VIAL IV ONE ×2 (18:37→22:59)
[2024-11-16] MEDS: METOCLOPRAMIDE INJ 10MG/2ML VIAL IV ONE (18:49)
[2024-11-16 20:34] VITALS: BP 143/69; TEMP 97.5; O2SAT 92
[2024-11-16] MEDS ORDERED: LEVEMIR (INSULIN DETEMIR) 1 UNITS/0.01ML SC SCH (21:00)
[2024-11-16] MEDS: LEVEMIR (INSULIN DETEMIR) 1 UNITS/0.01ML SC SCH (21:18)
[2024-11-16] MEDS: MONTELUKAST 10 MG TAB PO SCH (21:18)
[2024-11-16] MEDS: FERROUS SULFATE 325MG TAB PO SCH (21:18)
[2024-11-16 23:22] VITALS: BP 141/72; TEMP 97.9; O2SAT 93
[2024-11-17] VITALS (7 sets, daily range): BP systolic 124–163; BP diastolic 67–83; TEMP 97.3–98.2; O2SAT 92–94
[2024-11-17 06:53] LABS: HEMATOCRIT 36.1 % (36.0-47.0); HEMOGLOBIN 11.7 g/dl (12.0-15.5); MEAN CORPUSCULAR HEMOGLOBIN 29.1 pg (27.0-33.0); MEAN CORPUSCULAR HGB CONC 32.4 g/dl (32.0-36.5); MEAN CORPUSCULAR VOLUME 89.8 fl (80.0-96.0); PLATELET COUNT, AUTOMATED 237 10^3/uL (150-450); RED BLOOD COUNT 4.02 10^6/uL (4.00-5.40); WHITE BLOOD COUNT 2.1 10^3/uL (4.0-10.0)
[2024-11-17 07:31] LABS: ALKALINE PHOSPHATASE 99 U/L (35-104); ALT/SGPT 412 U/L (7.0-40); AST/SGOT 266 U/L (<34); BILIRUBIN,TOTAL 0.3 MG/DL (0.3-1.2); BLOOD UREA NITROGEN < 5 MG/DL (9-23); CALCIUM LEVEL 9.1 MG/DL (8.3-10.6); CARBON DIOXIDE LEVEL 24 MMOL/L (20-31); CHLORIDE LEVEL 107 MMOL/L (98-107); CREATININE FOR GFR 0.46 MG/DL (0.55-1.30); GLOMERULAR FILTRATION RATE > 60.0 (>45); GLUCOSE, FASTING 216 MG/DL (74-106); SODIUM LEVEL 141 MMOL/L (136-145)
[2024-11-17 10:54] LABS: INR 1.03; PROTHROMBIN TIME 13.9 SECONDS (12.5-14.5)
[2024-11-17] MEDS: FUROSEMIDE 20 MG TAB PO SCH (12:01)
[2024-11-17] MEDS: METOPROLOL TART 25 MG TABLET PO SCH (12:02)
[2024-11-17] MEDS: CYCLOBENZAPRINE 5MG TABLET PO PRN (12:12)
[2024-11-17] MEDS: GABAPENTIN 100 MG CAP PO SCH (16:58)
[2024-11-17] MEDS: RAMELTEON 8 MG TAB (ROZEREM) PO ONE (23:33)
[2024-11-18 04:00] VITALS: BP 124/63; TEMP 97.3; O2SAT 92
[2024-11-18 06:01] LABS: HEMATOCRIT 34.6 % (36.0-47.0); HEMOGLOBIN 11.2 g/dl (12.0-15.5); LYMPH # 0.8 10^3/uL (1.5-5.0); LYMPH % 25.2 % (24.0-44.0); MEAN CORPUSCULAR HEMOGLOBIN 29.6 pg (27.0-33.0); MEAN CORPUSCULAR HGB CONC 32.4 g/dl (32.0-36.5); MEAN CORPUSCULAR VOLUME 91.5 fl (80.0-96.0); MONO # 0.2 10^3/uL (0.0-0.8); MONO % 5.9 % (2.0-8.0); NEUTROPHILS # 2.1 10^3/uL (1.5-8.5); NEUTROPHILS % 68.6 % (36.0-66.0); PLATELET COUNT, AUTOMATED 236 10^3/uL (150-450); RED BLOOD COUNT 3.78 10^6/uL (4.00-5.40); WHITE BLOOD COUNT 3.1 10^3/uL (4.0-10.0)
[2024-11-18 06:30] LABS: ALKALINE PHOSPHATASE 87 U/L (35-104); ALT/SGPT 282 U/L (7.0-40); AST/SGOT 117 U/L (<34); BILIRUBIN,TOTAL 0.2 MG/DL (0.3-1.2); BLOOD UREA NITROGEN 13 MG/DL (9-23); CALCIUM LEVEL 8.8 MG/DL (8.3-10.6); CARBON DIOXIDE LEVEL 23 MMOL/L (20-31); CHLORIDE LEVEL 109 MMOL/L (98-107); CREATININE FOR GFR 0.48 MG/DL (0.55-1.30); GLOMERULAR FILTRATION RATE > 60.0 (>45); GLUCOSE, FASTING 224 MG/DL (74-106); POTASSIUM SERUM 3.9 MMOL/L (3.5-5.1); SODIUM LEVEL 143 MMOL/L (136-145); TOTAL PROTEIN 5.9 G/DL (5.7-8.2)
[2024-11-18] MEDS: predniSONE 10MG TAB PO SCH (11:31)
[2024-11-18 12:00] VITALS: BP 135/76; TEMP 97.7; O2SAT 93
[2024-11-18 20:00] VITALS: BP 104/72; TEMP 97.2; O2SAT 97
[2024-11-18] MEDS: RAMELTEON 8 MG TAB (ROZEREM) PO PRN (23:13)
[2024-11-19 04:00] VITALS: BP 106/65; TEMP 97; O2SAT 95
[2024-11-19] MEDS ORDERED: OSEL75CA2 PO (08:20)
[2024-11-19] MEDS ORDERED: PRED20TA PO (08:23)
[2024-11-19] MEDS ORDERED: DOXY100C3 PO (08:23)
[2024-11-19] MEDS ORDERED: ALBU8.5H INH (08:23)
[2024-11-19] MEDS ORDERED: PRED10TA2 PO (08:23)
[2024-11-19 08:39] VITALS: BP 120/72
[2024-11-19 09:19] LABS: BLOOD UREA NITROGEN 13 MG/DL (9-23); CALCIUM LEVEL 9.2 MG/DL (8.3-10.6); CARBON DIOXIDE LEVEL 23 MMOL/L (20-31); CHLORIDE LEVEL 109 MMOL/L (98-107); CREATININE FOR GFR 0.48 MG/DL (0.55-1.30); GLOMERULAR FILTRATION RATE > 60.0 (>45); GLUCOSE, FASTING 196 MG/DL (74-106); POTASSIUM SERUM 3.6 MMOL/L (3.5-5.1); SODIUM LEVEL 142 MMOL/L (136-145)
== END 2024-11-19 11:54 | disposition home health service (06) | DRG 113 ==
LOC: M ED 00:57 → EDBD 00:57 → M ED INP 10:17 → M PCU 14:22 → M MSPAV 11-17 15:31
PROVIDERS: ADMIT Internal Medicine; ATTEND General Practice
DX: J10.1 Influenza due to other identified influenza virus with other respiratory manifestations (principal); J96.01 Acute respiratory failure with hypoxia; I50.33 Acute on chronic diastolic (congestive) heart failure; I11.0 Hypertensive heart disease with heart failure; E11.51 Type 2 diabetes mellitus with diabetic peripheral angiopathy without gangrene; J44.1 Chronic obstructive pulmonary disease with (acute) exacerbation; E66.01 Morbid (severe) obesity due to excess calories; I48.0 Paroxysmal atrial fibrillation; K76.0 Fatty (change of) liver, not elsewhere classified; K71.10 Toxic liver disease with hepatic necrosis, without coma; Z68.36 Body mass index [BMI] 36.0-36.9, adult; E78.5 Hyperlipidemia, unspecified; M16.12 Unilateral primary osteoarthritis, left hip; G47.33 Obstructive sleep apnea (adult) (pediatric); N20.0 Calculus of kidney; N80.9 Endometriosis, unspecified; M43.06 Spondylolysis, lumbar region; M47.895 Other spondylosis, thoracolumbar region; Z86.73 Personal history of transient ischemic attack (TIA), and cerebral infarction without residual deficits; Z98.84 Bariatric surgery status; Z79.899 Other long term (current) drug therapy; Z79.52 Long term (current) use of systemic steroids; Z79.01 Long term (current) use of anticoagulants; J12.89 Other viral pneumonia

== ENCOUNTER → 2024-12-02 | Outpatient (CLI) | payer OTHER ==
[~2024-12-02] MED LIST changes: +ACET-910 PO; +DOXY100C3 PO; +GLIM1TAB84 PO; +LEVO25TA5 PO; +LORA-622 PO; +OSEL75CA2 PO; +PRED10TA2 PO; +PRED20TA PO; +SEMA2PEN SC; +THERTAB52 PO
[2024-12-02 13:12] LABS: HEMATOCRIT 39.2 % (36.0-47.0); HEMOGLOBIN 12.3 g/dl (12.0-15.5); MEAN CORPUSCULAR HEMOGLOBIN 29.4 pg (27.0-33.0); MEAN CORPUSCULAR HGB CONC 31.4 g/dl (32.0-36.5); MEAN CORPUSCULAR VOLUME 93.6 fl (80.0-96.0); PLATELET COUNT, AUTOMATED 336 10^3/uL (150-450); RED BLOOD COUNT 4.19 10^6/uL (4.00-5.40); WHITE BLOOD COUNT 8.6 10^3/uL (4.0-10.0)
[2024-12-02 13:29] LABS: HEMOGLOBIN A1c 8.1 % (4.0-6.0)
[2024-12-02 13:37] LABS: ALBUMIN 3.8 G/DL (3.2-5.2); ALKALINE PHOSPHATASE 97 U/L (35-104); ALT/SGPT 76 U/L (7.0-40); AST/SGOT 26 U/L (<34); BILIRUBIN,DIRECT 0.3 MG/DL (<0.4); BILIRUBIN,TOTAL 0.8 MG/DL (0.3-1.2); BLOOD UREA NITROGEN 8 MG/DL (9-23); CALCIUM LEVEL 9.4 MG/DL (8.3-10.6); CARBON DIOXIDE LEVEL 32 MMOL/L (20-31); CHLORIDE LEVEL 103 MMOL/L (98-107); CREATININE FOR GFR 0.56 MG/DL (0.55-1.30); GLOMERULAR FILTRATION RATE > 60.0 (>45); GLUCOSE, FASTING 224 MG/DL (74-106); POTASSIUM SERUM 4.3 MMOL/L (3.5-5.1); SODIUM LEVEL 141 MMOL/L (136-145); TOTAL PROTEIN 6.8 G/DL (5.7-8.2)
== END ==
LOC: M PLALAB 11:17
DX: J98.8 Other specified respiratory disorders (principal); K71.9 Toxic liver disease, unspecified; I50.32 Chronic diastolic (congestive) heart failure; E11.8 Type 2 diabetes mellitus with unspecified complications

== ENCOUNTER → 2024-12-24 | Outpatient (CLI) | payer OTHER | LOC: M SOG 14:01 | PROVIDERS: ATTEND Orthopaedic Surgery | DX: M25.562 Pain in left knee (principal); M17.12 Unilateral primary osteoarthritis, left knee ==

== ENCOUNTER → 2025-01-27 | Outpatient (CLI) | payer OTHER ==
[~2025-01-27] MED LIST changes: +DICL1SOL4 TOP; -DICL5SOL3 TOP
== END ==
LOC: M CARPUL 13:58
PROVIDERS: ATTEND Internal Medicine Cardiovascular Disease
DX: R94.31 Abnormal electrocardiogram [ECG] [EKG] (principal); R07.9 Chest pain, unspecified

== ENCOUNTER → 2025-02-15 | Outpatient (CLI) | payer OTHER ==
[2025-02-15 18:03] LABS: BASO # 0.1 10^3/uL (0.0-0.2); BASO % 0.8 % (0.0-1.0); EOS # 0.2 10^3/uL (0.0-0.5); EOS % 2.1 % (0.0-3.0); HEMATOCRIT 39.1 % (36.0-47.0); HEMOGLOBIN 12.4 g/dl (12.0-15.5); LYMPH # 2.5 10^3/uL (1.5-5.0); MEAN CORPUSCULAR HEMOGLOBIN 29.7 pg (27.0-33.0); MEAN CORPUSCULAR HGB CONC 31.7 g/dl (32.0-36.5); MEAN CORPUSCULAR VOLUME 93.8 fl (80.0-96.0); MONO # 0.6 10^3/uL (0.0-0.8); MONO % 7.1 % (2.0-8.0); NEUTROPHILS # 4.5 10^3/uL (1.5-8.5); NEUTROPHILS % 57.7 % (36.0-66.0); PLATELET COUNT, AUTOMATED 315 10^3/uL (150-450); RED BLOOD COUNT 4.17 10^6/uL (4.00-5.40); WHITE BLOOD COUNT 7.8 10^3/uL (4.0-10.0)
[2025-02-15 18:36] LABS: ALBUMIN 3.4 G/DL (3.2-5.2); ALKALINE PHOSPHATASE 99 U/L (35-104); ALT/SGPT 52 U/L (7.0-40); AST/SGOT 25 U/L (<34); BILIRUBIN,TOTAL 0.3 MG/DL (0.3-1.2); BLOOD UREA NITROGEN 14 MG/DL (9-23); CALCIUM LEVEL 9.3 MG/DL (8.3-10.6); CARBON DIOXIDE LEVEL 25 MMOL/L (20-31); CHLORIDE LEVEL 107 MMOL/L (98-107); CREATININE FOR GFR 0.49 MG/DL (0.55-1.30); GLOMERULAR FILTRATION RATE > 60.0 (>45); GLUCOSE, FASTING 109 MG/DL (74-106); POTASSIUM SERUM 4.4 MMOL/L (3.5-5.1); SODIUM LEVEL 142 MMOL/L (136-145); TOTAL PROTEIN 6.9 G/DL (5.7-8.2)
== END ==
LOC: M PLALAB 16:18
PROVIDERS: ATTEND Physician Assistant Medical
DX: I50.32 Chronic diastolic (congestive) heart failure (principal); R06.00 Dyspnea, unspecified; J98.11 Atelectasis

== ENCOUNTER → 2025-03-21 | Outpatient (CLI) | payer OTHER ==
[2025-03-21 11:00] LABS: BASO # 0.1 10^3/uL (0.0-0.2); BASO % 0.8 % (0.0-1.0); EOS # 0.2 10^3/uL (0.0-0.5); EOS % 3.1 % (0.0-3.0); HEMATOCRIT 37.6 % (36.0-47.0); HEMOGLOBIN 11.8 g/dl (12.0-15.5); LYMPH % 26.9 % (24.0-44.0); MEAN CORPUSCULAR HEMOGLOBIN 29.2 pg (27.0-33.0); MEAN CORPUSCULAR HGB CONC 31.4 g/dl (32.0-36.5); MEAN CORPUSCULAR VOLUME 93.1 fl (80.0-96.0); MONO # 0.6 10^3/uL (0.0-0.8); MONO % 7.8 % (2.0-8.0); NEUTROPHILS # 4.5 10^3/uL (1.5-8.5); PLATELET COUNT, AUTOMATED 291 10^3/uL (150-450); RED BLOOD COUNT 4.04 10^6/uL (4.00-5.40); WHITE BLOOD COUNT 7.4 10^3/uL (4.0-10.0)
[2025-03-21 11:14] LABS: HEMOGLOBIN A1c 7.5 % (4.0-6.0)
[2025-03-21 11:37] LABS: ALBUMIN 3.3 G/DL (3.2-5.2); ALKALINE PHOSPHATASE 94 U/L (35-104); ALT/SGPT 35 U/L (7.0-40); AST/SGOT 22 U/L (<34); BILIRUBIN,TOTAL 0.4 MG/DL (0.3-1.2); BLOOD UREA NITROGEN 14 MG/DL (9-23); CALCIUM LEVEL 9.2 MG/DL (8.3-10.6); CARBON DIOXIDE LEVEL 29 MMOL/L (20-31); CHLORIDE LEVEL 105 MMOL/L (98-107); CHOLESTEROL LEVEL 110 MG/DL (<200); CHOLESTEROL RISK RATIO 2.39 (<5); CREATININE FOR GFR 0.67 MG/DL (0.55-1.30); GLOMERULAR FILTRATION RATE > 90.0 (>45); GLUCOSE, FASTING 154 MG/DL (74-106); LDL CHOLESTEROL 38.4 MG/DL (<100); MAGNESIUM LEVEL 1.8 MG/DL (1.8-2.4); SODIUM LEVEL 143 MMOL/L (136-145); TOTAL PROTEIN 6.2 G/DL (5.7-8.2); TRIGLYCERIDES LEVEL 128 MG/DL (<150)
[2025-03-21 11:52] LABS: TOTAL 25(OH) VITAMIN D 36.6 NG/ML (20.0-100.0)
[2025-03-21 11:54] LABS: FREE T4 1.16 NG/DL (0.89-1.76)
[2025-03-21 11:55] LABS: PTH INTACT 91.1 PG/ML (18.5-88.0)
[2025-03-21 11:58] LABS: FERRITIN 21.4 NG/ML (7.3-270.7)
[2025-03-21 11:59] LABS: THYROID STIMULATING HORMONE 6.195 uIU/ML (0.55-4.78)
== END ==
LOC: M PLALAB 07:05
PROVIDERS: ATTEND Family Medicine
DX: D50.9 Iron deficiency anemia, unspecified (principal); I50.32 Chronic diastolic (congestive) heart failure; E03.9 Hypothyroidism, unspecified; E55.9 Vitamin D deficiency, unspecified; E11.8 Type 2 diabetes mellitus with unspecified complications

== ENCOUNTER → 2025-03-23 | Outpatient (CLI) | payer OTHER | LOC: M PLAIMG 12:51 | PROVIDERS: ATTEND Registered Nurse | DX: R06.02 Shortness of breath (principal); I34.9 Nonrheumatic mitral valve disorder, unspecified ==

== ENCOUNTER → 2025-03-23 | Outpatient (CLI) | payer OTHER | LOC: M WHC 08:04 | PROVIDERS: ATTEND Family Medicine | DX: Z12.31 Encounter for screening mammogram for malignant neoplasm of breast (principal); Z13.820 Encounter for screening for osteoporosis; M85.851 Other specified disorders of bone density and structure, right thigh; M85.852 Other specified disorders of bone density and structure, left thigh ==

== ENCOUNTER → 2025-06-02 | Outpatient (CLI) | payer OTHER ==
[~2025-06-02] MED LIST changes: +LORA-1164 PO; -LORA-622 PO; +PROHANCE 279.3MG/ML 15ML VIAL ONE; +PROHANCE 279.3MG/ML 5ML VIAL ONE
== END ==
LOC: M PLAIMG 10:48
PROVIDERS: ATTEND Family Medicine
DX: M47.27 Other spondylosis with radiculopathy, lumbosacral region (principal); M47.896 Other spondylosis, lumbar region
CPT/HCPCS: 72158; A9576

== ENCOUNTER → 2025-06-06 | Outpatient (CLI) | payer OTHER ==
[~2025-06-06] MED LIST changes: +INSU100I40; +LEVO50TA5; -PROHANCE 279.3MG/ML 15ML VIAL ONE; -PROHANCE 279.3MG/ML 5ML VIAL ONE
[2025-06-06 13:55] LABS: BASO # 0.1 10^3/uL (0.0-0.2); BASO % 1.4 % (0.0-1.0); EOS # 0.2 10^3/uL (0.0-0.5); EOS % 3.2 % (0.0-3.0); LYMPH # 2.5 10^3/uL (1.5-5.0); LYMPH % 38.2 % (24.0-44.0); MONO # 0.5 10^3/uL (0.0-0.8); MONO % 7.0 % (2.0-8.0); NEUTROPHILS # 3.2 10^3/uL (1.5-8.5); NEUTROPHILS % 50.0 % (36.0-66.0); PLATELET COUNT, AUTOMATED 335 10^3/uL (150-450)
[2025-06-06 14:00] LABS: FREE T4 1.24 NG/DL (0.89-1.76)
[2025-06-06 14:01] LABS: ALT/SGPT 38 U/L (7.0-40); AST/SGOT 27 U/L (<34); CALCIUM LEVEL 9.3 MG/DL (8.3-10.6); CARBON DIOXIDE LEVEL 28 MMOL/L (20-31); CHLORIDE LEVEL 104 MMOL/L (98-107); CREATININE FOR GFR 0.60 MG/DL (0.55-1.30); GLOMERULAR FILTRATION RATE > 90.0 (>45); MAGNESIUM LEVEL 2.0 MG/DL (1.8-2.4); POTASSIUM SERUM 4.3 MMOL/L (3.5-5.1); SODIUM LEVEL 144 MMOL/L (136-145)
[2025-06-06 14:02] LABS: PTH INTACT 183.4 PG/ML (18.5-88.0)
[2025-06-06 14:03] LABS: TOTAL 25(OH) VITAMIN D 32.0 NG/ML (20.0-100.0)
[2025-06-06 14:13] LABS: ESTIMATED AVERAGE GLUCOSE 146.0 MG/DL (60-110)
== END ==
LOC: M PLALAB 11:03
PROVIDERS: ATTEND Family Medicine
DX: E55.9 Vitamin D deficiency, unspecified (principal); D50.9 Iron deficiency anemia, unspecified; I50.32 Chronic diastolic (congestive) heart failure; E03.9 Hypothyroidism, unspecified; E11.8 Type 2 diabetes mellitus with unspecified complications

== ENCOUNTER → 2025-06-06 | Outpatient (REF) | payer OTHER ==
[~2025-06-06] MED LIST changes: -INSU100I40; -LEVO50TA5
== END ==
LOC: M SFHCPLAZ 15:25
PROVIDERS: ATTEND Family Medicine
DX: Z53.9 Procedure and treatment not carried out, unspecified reason (principal)

== ENCOUNTER → 2025-06-09 | Outpatient (CLI) | payer OTHER ==
[~2025-06-09] MED LIST changes: +ISOVUE-370 76% 100 ML VIAL As Ordered ONE
[2025-06-09 10:59] LABS: BASO # 0.1 10^3/uL (0.0-0.2); BASO % 1.2 % (0.0-1.0); EOS # 0.2 10^3/uL (0.0-0.5); EOS % 2.8 % (0.0-3.0); LYMPH # 2.0 10^3/uL (1.5-5.0); LYMPH % 34.3 % (24.0-44.0); MONO # 0.4 10^3/uL (0.0-0.8); MONO % 6.6 % (2.0-8.0); NEUTROPHILS # 3.2 10^3/uL (1.5-8.5); NEUTROPHILS % 54.9 % (36.0-66.0); PLATELET COUNT, AUTOMATED 286 10^3/uL (150-450)
[2025-06-09 11:03] LABS: ERYTHROCYTE SEDIMENTATION RATE 27 mm/hr (0-30)
[2025-06-09 11:52] LABS: ESTIMATED AVERAGE GLUCOSE 151.0 MG/DL (60-110)
[2025-06-09 12:00] LABS: C REACTIVE PROTEIN QUANTITATIV < 0.50 MG/DL (<1.0)
[2025-06-09 12:01] LABS: ALT/SGPT 38 U/L (7.0-40); AST/SGOT 24 U/L (<34); CALCIUM LEVEL 9.3 MG/DL (8.3-10.6); CARBON DIOXIDE LEVEL 28 MMOL/L (20-31); CHLORIDE LEVEL 105 MMOL/L (98-107); CREATININE FOR GFR 0.58 MG/DL (0.55-1.30); GLOMERULAR FILTRATION RATE > 90.0 (>45); MAGNESIUM LEVEL 1.9 MG/DL (1.8-2.4); POTASSIUM SERUM 4.0 MMOL/L (3.5-5.1); SODIUM LEVEL 145 MMOL/L (136-145)
[2025-06-09 12:02] LABS: PTH INTACT 92.7 PG/ML (18.5-88.0)
[2025-06-09 12:03] LABS: FREE T4 1.09 NG/DL (0.89-1.76); TOTAL 25(OH) VITAMIN D 32.2 NG/ML (20.0-100.0)
== END ==
LOC: M RAD 10:00
PROVIDERS: ATTEND Family Medicine
DX: M46.20 Osteomyelitis of vertebra, site unspecified (principal); M25.78 Osteophyte, vertebrae; I50.32 Chronic diastolic (congestive) heart failure; D50.9 Iron deficiency anemia, unspecified; E03.9 Hypothyroidism, unspecified; M47.27 Other spondylosis with radiculopathy, lumbosacral region; E55.9 Vitamin D deficiency, unspecified; E11.8 Type 2 diabetes mellitus with unspecified complications
CPT/HCPCS: 36415; 72132; 80053; 81374; 82306; 82728; 83036; 83605; 83735; 83880; 83970; 84439; 84443; 85025; 85652; 86038; 86140; 87040; Q9967

== ENCOUNTER 2025-06-17 09:16 | Emergency (ER) | payer OTHER ==
[~2025-06-17] VITALS: Ht 154.9 cm; Wt 85.4 kg
[~2025-06-17 09:16] MED LIST changes: -ISOVUE-370 76% 100 ML VIAL As Ordered ONE
[2025-06-17] MEDS ORDERED: LEVO50TA5 (09:30)
[2025-06-17] MEDS ORDERED: INSU100I40 (09:30)
[2025-06-17 12:36] LABS: BASO # 0.1 10^3/uL (0.0-0.2); BASO % 1.1 % (0.0-1.0); EOS # 0.2 10^3/uL (0.0-0.5); EOS % 3.7 % (0.0-3.0); LYMPH # 2.4 10^3/uL (1.5-5.0); LYMPH % 36.7 % (24.0-44.0); MONO # 0.5 10^3/uL (0.0-0.8); MONO % 6.8 % (2.0-8.0); NEUTROPHILS # 3.4 10^3/uL (1.5-8.5); NEUTROPHILS % 51.2 % (36.0-66.0); PLATELET COUNT, AUTOMATED 317 10^3/uL (150-450)
[2025-06-17 12:41] LABS: ERYTHROCYTE SEDIMENTATION RATE 32 mm/hr (0-30)
[2025-06-17 13:01] LABS: C REACTIVE PROTEIN QUANTITATIV < 0.50 MG/DL (<1.0); CALCIUM LEVEL 7.9 MG/DL (8.3-10.6); CARBON DIOXIDE LEVEL 28 MMOL/L (20-31); CHLORIDE LEVEL 108 MMOL/L (98-107); CREATININE FOR GFR 0.57 MG/DL (0.55-1.30); GLOMERULAR FILTRATION RATE > 90.0 (>45); POTASSIUM SERUM 4.3 MMOL/L (3.5-5.1); SODIUM LEVEL 146 MMOL/L (136-145)
[2025-06-17] MEDS ORDERED: PROHANCE 279.3MG/ML 5ML VIAL As Ordered ONE (14:40)
[2025-06-17] MEDS ORDERED: PROHANCE 279.3MG/ML 15ML VIAL As Ordered ONE (14:41)
[2025-06-17 16:04] VITALS: TEMP 97.4
[2025-06-17 16:19] VITALS: BP 122/58; O2SAT 95
== END 2025-06-17 16:40 | disposition home or self-care (01) ==
LOC: M ED 09:16
DX: M54.50 Low back pain, unspecified (principal); E11.9 Type 2 diabetes mellitus without complications; J44.9 Chronic obstructive pulmonary disease, unspecified; Z86.79 Personal history of other diseases of the circulatory system; Z79.01 Long term (current) use of anticoagulants; Z79.52 Long term (current) use of systemic steroids; Z79.02 Long term (current) use of antithrombotics/antiplatelets; Z79.4 Long term (current) use of insulin; Z79.899 Other long term (current) drug therapy
CPT/HCPCS: 36415; 72158; 80048; 85025; 85652; 86140; 87040; 96374; 99285; A9576; J3010

== ENCOUNTER → 2025-06-22 | Outpatient (CLI) | payer OTHER ==
[~2025-06-22] MED LIST changes: +INSU100I40; +ISOVUE-370 76% 100 ML VIAL As Ordered ONE; +LEVO50TA5
== END ==
LOC: M RAD 08:20
PROVIDERS: ATTEND Family Medicine
DX: M47.816 Spondylosis without myelopathy or radiculopathy, lumbar region (principal); M51.369 Other intervertebral disc degeneration, lumbar region without mention of lumbar back pain or lower extremity pain
CPT/HCPCS: 72132; Q9967

== ENCOUNTER → 2025-06-23 | Outpatient (CLI) | payer OTHER ==
[~2025-06-23] MED LIST changes: -ISOVUE-370 76% 100 ML VIAL As Ordered ONE
== END ==
LOC: M SOG 06:46
PROVIDERS: ATTEND Orthopaedic Surgery
DX: M16.0 Bilateral primary osteoarthritis of hip (principal)

== ENCOUNTER → 2025-07-27 | Outpatient (CLI) | payer OTHER ==
[~2025-07-27] MED LIST changes: +PROHANCE 279.3MG/ML 15ML VIAL ONE; +PROHANCE 279.3MG/ML 5ML VIAL ONE; -VITA500T17 PO; +VITA500T8 PO
== END ==
LOC: M PLAIMG 12:29
PROVIDERS: ATTEND Neurological Surgery
DX: M51.26 Other intervertebral disc displacement, lumbar region (principal); M47.816 Spondylosis without myelopathy or radiculopathy, lumbar region
CPT/HCPCS: 72158; A9576

== ENCOUNTER 2025-09-05 12:32 | Emergency (ER) | payer OTHER ==
[~2025-09-05] VITALS: Ht 157.5 cm; Wt 82.6 kg
[~2025-09-05 12:32] MED LIST changes: -PROHANCE 279.3MG/ML 15ML VIAL ONE; -PROHANCE 279.3MG/ML 5ML VIAL ONE
[2025-09-05] MEDS: ACETAMINOPHEN 500 MG TAB PO ONE (13:14)
[2025-09-05 14:11] VITALS: BP 95/56; O2SAT 95
[2025-09-05 14:13] VITALS: TEMP 97
== END 2025-09-05 14:39 | disposition home or self-care (01) ==
LOC: M ED 12:32
DX: S09.90XA Unspecified injury of head, initial encounter (principal); W01.198A Fall on same level from slipping, tripping and stumbling with subsequent striking against other object, initial encounter; M50.31 Other cervical disc degeneration, high cervical region; M43.12 Spondylolisthesis, cervical region; M16.0 Bilateral primary osteoarthritis of hip; R51.9 Headache, unspecified; E11.9 Type 2 diabetes mellitus without complications; G47.33 Obstructive sleep apnea (adult) (pediatric); Z86.79 Personal history of other diseases of the circulatory system; Z79.01 Long term (current) use of anticoagulants; Z79.52 Long term (current) use of systemic steroids; Z79.02 Long term (current) use of antithrombotics/antiplatelets; Z79.1 Long term (current) use of non-steroidal anti-inflammatories (NSAID); Z79.4 Long term (current) use of insulin; Z79.899 Other long term (current) drug therapy; Y92.009 Unspecified place in unspecified non-institutional (private) residence as the place of occurrence of the external cause; Y93.89 Activity, other specified; Y99.9 Unspecified external cause status

== ENCOUNTER 2025-09-29 17:54 | Emergency (ER) | payer OTHER ==
[~2025-09-29] VITALS: Ht 154.9 cm; Wt 84.9 kg
[2025-09-29 18:04] VITALS: TEMP 97.3
[2025-09-29 18:30] LABS: BASO # 0.1 10^3/uL (0.0-0.2); BASO % 1.0 % (0.0-1.0); EOS # 0.2 10^3/uL (0.0-0.5); EOS % 3.3 % (0.0-3.0); LYMPH # 2.6 10^3/uL (1.5-5.0); LYMPH % 44.1 % (24.0-44.0); MONO # 0.4 10^3/uL (0.0-0.8); MONO % 6.7 % (2.0-8.0); NEUTROPHILS # 2.7 10^3/uL (1.5-8.5); NEUTROPHILS % 44.7 % (36.0-66.0); PLATELET COUNT, AUTOMATED 302 10^3/uL (150-450)
[2025-09-29 18:49] LABS: CALCIUM LEVEL 10.1 MG/DL (8.3-10.6); CARBON DIOXIDE LEVEL 31 MMOL/L (20-31); CHLORIDE LEVEL 103 MMOL/L (98-107); CREATININE FOR GFR 0.65 MG/DL (0.55-1.30); GLOMERULAR FILTRATION RATE > 90.0 (>45); POTASSIUM SERUM 4.0 MMOL/L (3.5-5.1); SODIUM LEVEL 143 MMOL/L (136-145)
[2025-09-29 18:55] LABS: INR 0.95
[2025-09-29] MEDS: MECLIZINE 25 MG TABLET PO ONE (20:19)
[2025-09-29 20:47] LABS: KETONE, URINE AUTO RFX NEGATIVE (NEGATIVE); MUCUS, URINE RFX SMALL (NEGATIVE); NITRITE, URINE AUTO RFX NEGATIVE (NEGATIVE); RBC, URINE AUTO RFX 0 /HPF (0-3); SQUAM EPITHELIAL CELL UR AURFX 0 /HPF (0-6); WBC, URINE AUTO RFX 5 /HPF (0-3)
[2025-09-29 20:50] LABS: LEUKOCYTE ESTERASE UR AUTO RFX 1+ (NEGATIVE)
[2025-09-29] MEDS: NS 500 ML IV ONE (21:51)
[2025-09-29 21:59] LABS: FREE T4 1.06 NG/DL (0.89-1.76)
[2025-09-29 22:30] VITALS: BP 101/56; O2SAT 95
[2025-09-29] MEDS ORDERED: MECL-86 PO (22:51)
== END 2025-09-29 23:15 | disposition home or self-care (01) ==
LOC: M ED 17:54 → EDBD 17:54 → M ED 23:15
DX: H81.13 Benign paroxysmal vertigo, bilateral (principal); I45.10 Unspecified right bundle-branch block; E11.9 Type 2 diabetes mellitus without complications; I10 Essential (primary) hypertension; E78.5 Hyperlipidemia, unspecified; G47.33 Obstructive sleep apnea (adult) (pediatric); I48.91 Unspecified atrial fibrillation; Z86.73 Personal history of transient ischemic attack (TIA), and cerebral infarction without residual deficits; Z86.79 Personal history of other diseases of the circulatory system; Z87.442 Personal history of urinary calculi; Z79.899 Other long term (current) drug therapy; Z79.52 Long term (current) use of systemic steroids; Z79.01 Long term (current) use of anticoagulants; Z79.4 Long term (current) use of insulin

== ENCOUNTER → 2025-10-03 | Outpatient (CLI) | payer OTHER ==
[2025-10-03 12:59] LABS: BASO # 0.1 10^3/uL (0.0-0.2); BASO % 1.1 % (0.0-1.0); EOS # 0.2 10^3/uL (0.0-0.5); EOS % 2.6 % (0.0-3.0); LYMPH # 2.2 10^3/uL (1.5-5.0); LYMPH % 33.6 % (24.0-44.0); MONO # 0.5 10^3/uL (0.0-0.8); MONO % 7.1 % (2.0-8.0); NEUTROPHILS # 3.6 10^3/uL (1.5-8.5); NEUTROPHILS % 55.4 % (36.0-66.0); PLATELET COUNT, AUTOMATED 284 10^3/uL (150-450)
[2025-10-03 13:15] LABS: ESTIMATED AVERAGE GLUCOSE 157.0 MG/DL (60-110)
[2025-10-03 13:29] LABS: TOTAL 25(OH) VITAMIN D 51.1 NG/ML (20.0-100.0)
[2025-10-03 13:30] LABS: FREE T4 1.06 NG/DL (0.89-1.76)
[2025-10-03 13:32] LABS: ALT/SGPT 37 U/L (7.0-40); AST/SGOT 22 U/L (<34); CALCIUM LEVEL 8.9 MG/DL (8.3-10.6); CARBON DIOXIDE LEVEL 30 MMOL/L (20-31); CHLORIDE LEVEL 104 MMOL/L (98-107); CREATININE FOR GFR 0.66 MG/DL (0.55-1.30); GLOMERULAR FILTRATION RATE > 90.0 (>45); MAGNESIUM LEVEL 2.1 MG/DL (1.8-2.4); POTASSIUM SERUM 4.0 MMOL/L (3.5-5.1); PTH INTACT 151.7 PG/ML (18.5-88.0); SODIUM LEVEL 143 MMOL/L (136-145)
== END ==
LOC: M LAB 11:30
PROVIDERS: ATTEND Family Medicine
DX: D50.9 Iron deficiency anemia, unspecified (principal); I50.32 Chronic diastolic (congestive) heart failure; E03.9 Hypothyroidism, unspecified; E11.8 Type 2 diabetes mellitus with unspecified complications; E55.9 Vitamin D deficiency, unspecified